=== PATIENT | male | born 1955 | race Caucasian/White ===

== ENCOUNTER → 2017-08-13 08:19 | Outpatient (CLI) | payer MEDICARE, SELFPAY ==
--- NOTE | 2017-08-13 09:00 | AVDS_ITS ---
Reason For Study: Infiltration of LUE fistula LEFT Proximal [place] vessel 182.0 cm/s. Proximal anastomosis 238.0 cm/s. Prox graft 187.0 cm/s Mid graft 181.0 cm/s Dist graft 141.0 cm/s Outflow 138.0 cm/s Volume flow [place] artery 101 cc/min Prox graft 181 cc/min Mid graft 127 cc/min Dist graft 51.9 cc/min Hypoechoic structure noted distal upper arm measuring 4.5 x 1.8 cm. Non-vascular. Interpretation Summary Left upper extremity fistula diameter is normal but volume flow is low throughout. Area of hematoma/infiltration 4.5 x 1.8cm noted in distal upper arm. Ordering Physician: Pavel Nova Referring Physician: Pavel Nova Performed By: Nafisa Wood RVT
== END ==
PROVIDERS: Family Provider Family Medicine; PCP Family Medicine; Visit Provider Surgery
DX: T82.898A Other specified complication of vascular prosthetic devices, implants and grafts, initial encounter (principal)
CPT/HCPCS: 93990

== ENCOUNTER 2017-08-14 10:47 | Emergency (ER) | payer MEDICARE, SELFPAY ==
[2017-08-14 10:48] VITALS: BP 125/86; PULSE 85; RESP 14; TEMP 35.7; O2SAT 99; BMI 32.8
[2017-08-14 10:59] VITALS: BP 176/86; PULSE 74; RESP 19; O2SAT 99
--- NOTE | 2017-08-14 11:11 | EKG12_ITS ---
Test Reason : CP Blood Pressure : / mmHG Vent. Rate : 077 BPM Atrial Rate : 077 BPM P-R Int : 172 ms QRS Dur : 088 ms QT Int : 434 ms P-R-T Axes : 029 038 051 degrees QTc Int : 491 ms Normal sinus rhythm Prolonged QT Abnormal ECG Confirmed by GONZALO CERVANTES, CARA ([id number]), senior technical editor BENTON CONRAD ([id number]) on 08/18/2017 3:13:40 PM Referred By: Pavel Nova Confirmed By:CARA SÁNCHEZ MD
--- NOTE | 2017-08-14 11:11 | RAD_ITS ---
STUDY: X-RAY CHEST REASON FOR EXAM: Male, 61 years old. 5 day history of chest pain. Hypertension. COPD. TECHNIQUE: Single AP portable view of the chest. COMPARISON: Comparison is made with prior study dated May 09, 2017. FINDINGS: EKG electrodes are seen. Stable pleural parenchymal changes at the left lung base. Hyperinflation. Normal size heart. Normal mediastinum and ania. Normal visualized pulmonary arteries. Normal visualized aortic arch and descending thoracic aorta. There are diffuse degenerative changes of the visualized thoracic spine. Normal visualized ribs, clavicles, and shoulders. There is no demonstrated abnormality of the visualized soft tissue structures of the upper abdomen. RAD/Chest 1 View (Portable) IMPRESSION: Stable pleural parenchymal changes at the left lung base. Electronically Signed: Ronald Johnson MD at 11:42 EST Tel [phone], Service support ,
[2017-08-14] MEDS: Aspirin 81 MG TAB.CHEW 324 MG PO (11:27)
[2017-08-14 11:38] LABS: Absolute Lymphocyte Count 1.22 X10^3/ul (0.83-4.51); Basophil# 0.06 X10^3/uL; Basophil% 1.4 % (0-1); Eosinophil# 0.38 X10^3/uL; Eosinophils% 8.9 % (0-5); Hematocrit 32.7 % (40-54); Lymphocyte # 1.22 X10^3/ul (4.0); Lymphocyte % 28.4 % (19-41); Mean Corp Hgb Conc 33.6 g/gl (32-36); Mean Corpuscular Hgb 34.4 pg (27.0-32.0); Mean Corpuscular Volume 102.2 fL (80-94); Mean Platelet Vol. 9.6 fl (6.2-12.0); Monocyte# 0.65 X10^3/uL; Monocyte% 15.2 % (0-10); Neutrophil # 1.97 X10^3/uL (2.7-7.7); Neutrophil % 45.9 % (47-70); Platelet Count 209 K/mm3 (150-450); RBC Distribution Width CV 14.8 % (11.6-14.6); RBC Distribution Width SD 52.2 fl (35.1-43.9); White Blood Count 4.3 K/mm3 (4.4-11.0)
[2017-08-14 11:39] LABS: POSITIVE COUNT NO; POSITIVE DIFFERENTIAL NO; POSITIVE MORPHOLOGY NO
[2017-08-14 11:55] LABS: BUN 9 mg/dL (7-18); Chloride 95 mmol/L (98-107); Creatinine, Serum 2.26 mg/dL (0.70-1.30); EST Glomerular Filtration Rate 32 mL/min (>60); Est Glom Filt Rate - Afr Amer 38 mL/min (>60); Glucose 79 mg/dL (70-110); Potassium 3.5 mmol/L (3.5-5.1); Sodium Level 135 mmol/L (136-145)
[2017-08-14 11:56] LABS: Anion Gap 10 (5-15)
[2017-08-14 12:48] VITALS: BP 196/78; PULSE 72; RESP 16; O2SAT 98
--- NOTE | 2017-08-14 13:01 | ED.VISSUMM ---
- ER Visit Summary Date of Service: 08/14/17 Chief Complaint: Chest pain History of Present Illness: The patient is a [address] Recio and Dr. Perez. He reports he has had intermittent chest pain for the past 5 days. This lasts minutes at a time he describes a throbbing on the left side. He is pain-free currently. It is 5 out of 10 at worst. Is worsened by nothing including exertion periods relieved by nothing. There is no radiation. No associated nausea, vomiting, diaphoresis, or shortness of breath. Physical Examination: Vitals: Stable. Afebrile. General: Well-nourished and well-developed. Head: Normocephalic atraumatic. Neck: Supple, no lymphadenopathy. No JVD. Nontender. Cardiovascular: Regular rate and rhythm. No murmurs. Respiratory: No respiratory distress. Clear to auscultation bilaterally. Abdominal: Soft, nontender, nondistended, normal bowel sounds. No guarding, rebound, or peritoneal signs. Back: Nontender. Extremities: Nontender, no edema. Skin: Normal color, no rash. Neurologic: Alert and oriented ?3. Cranial nerves II through XII are intact. Normal strength and sensation. Psych: Normal affect. Test Results: EKG is sinus at [address] changes. His QTC is 491. This is the only change from April 2017. His QTC was 448 then. Troponin is negative. Chem-7 is more for sodium 135, chloride 95, creatinine 2.26, and calcium 8.0. CBC is marked for white count 4.3 with 46 segmented neutrophils, 15 monocytes, 9 eosinophils. H&H is 11.0 and 32.7. Emergency Department Course and Treatment: Patient is resting comfortably without complaint. He has had not had chest pain while here. Treatment Plan: The patient is refusing to stay in the hospital for further evaluation and treatment. He is capable of making this decision and I had a prolonged discussion with him about the risk of this being cardiac in etiology. Risk of heart attack, heart failure, disability and/or . He is chosen to leave AMA anyways. He is instructed to return to the emergency department for any worsening symptoms or concerns. Follow-up with his primary care physician as soon as possible. Disposition: To home in improved and stable condition. Impression: 1. Chest pain. 2. End-stage renal disease. 3. DEVI score of 1. 4. Left AMA. This note was generated with [employer] dictation software. It may contain incorrect words, spelling, and punctuation that were not noted in review of the chart prior to signing ED Disposition - Plan for ED Patient: Disposition: Home or Assisted Living Chief Complaint: Chest Pain Instructions: ED Chest Pain Atypical Unkn Cause Referrals: Doron Recio MD [Primary Care Provider] - As soon as possible Additional Instructions: Turned to the emergency department at any time for worsening pain, shortness of breath, or any other concerns.
[2017-08-14 13:11] VITALS: BP 204/86; PULSE 69; RESP 20; O2SAT 96
== END 2017-08-14 13:11 | disposition home or self-care (01) ==
LOC: ED 11:55
PROVIDERS: Emergency Provider Emergency Medicine; Family Provider Family Medicine; PCP Family Medicine
DX: R07.9 Chest pain, unspecified (principal); I12.0 Hypertensive chronic kidney disease with stage 5 chronic kidney disease or end stage renal disease; N18.6 End stage renal disease; E78.00 Pure hypercholesterolemia, unspecified; Z99.2 Dependence on renal dialysis; Z72.0 Tobacco use; Z79.899 Other long term (current) drug therapy
CPT/HCPCS: 71045; 80048; 84484; 85025; 93005; 99284; A4216

== ENCOUNTER 2017-08-15 18:04 | Observation (INO) | payer MEDICARE, SELFPAY ==
[2017-08-14 10:48] VITALS: BMI 32.8
[2017-08-14 13:11] VITALS: BP 204/86
[2017-08-15] VITALS (7 sets, daily range): BP systolic 123–152; BP diastolic 66–88; PULSE 76–86; RESP 16–22; TEMP 36.4–36.7; O2SAT 95–99; BMI 34.2; BMI 33.5
--- NOTE | 2017-08-15 18:49 | EKG12_ITS ---
Test Reason : Blood Pressure : / mmHG Vent. Rate : 084 BPM Atrial Rate : 084 BPM P-R Int : 174 ms QRS Dur : 090 ms QT Int : 418 ms P-R-T Axes : 049 024 033 degrees QTc Int : 493 ms Sinus rhythm with frequent Premature ventricular complexes Nonspecific ST abnormality Prolonged QT Abnormal ECG Confirmed by GONZALO CERVANTES, CARA ([id number]), editor department BENTON CONRAD ([id number]) on 08/18/2017 3:33:48 PM Referred By: Pavel Nova Confirmed By:CARA SÁNCHEZ MD
[2017-08-15 19:06] LABS: Absolute Lymphocyte Count 1.99 X10^3/ul (0.83-4.51); Absolute Neutrophil Count 3.3 X10^3/uL (2.0-7.7); Basophil# 0.05 X10^3/uL; Basophil% 0.8 % (0-1); Eosinophil# 0.58 X10^3/uL; Eosinophils% 8.8 % (0-5); Hematocrit 33.8 % (40-54); Hemoglobin 11.3 g/dl (13.0-16.5); Lymphocyte # 1.99 X10^3/ul (4.0); Lymphocyte % 30.3 % (19-41); Mean Corp Hgb Conc 33.4 g/gl (32-36); Mean Corpuscular Hgb 34.2 pg (27.0-32.0); Mean Corpuscular Volume 102.4 fL (80-94); Monocyte# 0.62 X10^3/uL; Monocyte% 9.5 % (0-10); Neutrophil # 3.32 X10^3/uL (2.7-7.7); Neutrophil % 50.6 % (47-70); Platelet Count 223 K/mm3 (150-450); RBC Distribution Width CV 15.4 % (11.6-14.6); RBC Distribution Width SD 56.8 fl (35.1-43.9); White Blood Count 6.6 K/mm3 (4.4-11.0)
[2017-08-15 19:07] LABS: POSITIVE COUNT NO; POSITIVE DIFFERENTIAL NO; POSITIVE MORPHOLOGY NO
[2017-08-15 19:29] LABS: Anion Gap 12 (5-15); BUN 27 mg/dL (7-18); BUN/Creat Ratio 5.2 RATIO (10-20); Calcium,Total 8.6 mg/dL (8.5-10.1); Chloride 92 mmol/L (98-107); Creatinine, Serum 5.16 mg/dL (0.70-1.30); EST Glomerular Filtration Rate 12 mL/min (>60); Est Glom Filt Rate - Afr Amer 15 mL/min (>60); Estimated Creatinine Clearance 14.41 ml/min; Glucose 104 mg/dL (74-106); Sodium Level 129 mmol/L (136-145)
--- NOTE | 2017-08-15 21:28 | ED.VISSUMM ---
- ER Visit Summary Date of Service: 08/15/17 Chief Complaint: Chest pain History of Present Illness: The patient is a 61 M who signed out AMA from the emergency department yesterday after evaluation for chest pain. He states because he was here for 3 hours he felt he did not need to wait any longer and left. He went saw his doctor today who advised him he needed to come to the hospital. So he saw his doctor this morning but comes to the emergency department this evening. He states that he gets dialysis. Yesterday when he went to dialysis he mentioned his pain they spoke with his filer helper performed dialysis and sent to the ER. He states after taking aspirin his pain resolved. He was doing well and today he took some aspirin at lunchtime. He did not have any pain until this evening when the pain returned. He describes the left-sided around his breast. There is a throbbing sensation. He denies shortness of breath nausea or diaphoresis. He is a 2 pack a day smoker. Physical Examination: Afebrile vital signs are stable Gen: Well-nourished well-developed disheveled smelling heavily of cigarettes Head: Normocephalic atraumatic Eyes: Perrl EOMI ENT: TMs clear no rhinorrhea moist mucous membranes Neck: Supple no lymphadenopathy no JVD nontender CVS: Regular rate rhythm no murmurs normal S1-S2 Respiratory: No distress clear to auscultation bilaterally chest nontender Abdomen: Soft nontender nondistended normal bowel sounds no masses Back: Nontender Extremity: Nontender no edema Skin: Normal color no rash Neuro: alert orientated ?3 CN II-XII intact normal strength sensation reflexes gait cerebellar Psych: Patient has a rather angry disposition Test Results: CBC chemistries showed chronic findings associated with end-stage renal disease. Troponin negative. EKG sinus at a rate of 84 with a PVC. Chest x-ray was not repeated but reviewed from yesterday. Emergency Department Course and Treatment: Patient will be admitted into the hospital for further evaluation of chest pain. His DEVI score is 3 Impression: 1. Chest pain This note was generated with [employer] dictation software. It may contain incorrect words, spelling, and punctuation that were not noted in review of the chart prior to signing ED Disposition - Plan for ED Patient: Chief Complaint: Chest Pain Referrals: Doron Recio MD [Primary Care Provider] -
--- NOTE | 2017-08-15 21:31 | ED.DCSUM_ITS ---
- ER Visit Summary Date of Service: 08/15/17 Chief Complaint: Chest pain History of Present Illness: The patient is a 61 M who signed out AMA from the emergency department yesterday after evaluation for chest pain. He states because he was here for 3 hours he felt he did not need to wait any longer and left. He went saw his doctor today who advised him he needed to come to the hospital. So he saw his doctor this morning but comes to the emergency department this evening. He states that he gets dialysis. Yesterday when he went to dialysis he mentioned his pain they spoke with his edi manager performed dialysis and sent to the ER. He states after taking aspirin his pain resolved. He was doing well and today he took some aspirin at lunchtime. He did not have any pain until this evening when the pain returned. He describes the left-sided around his breast. There is a throbbing sensation. He denies shortness of breath nausea or diaphoresis. He is a 2 pack a day smoker. Physical Examination: Afebrile vital signs are stable Gen: Well-nourished well-developed disheveled smelling heavily of cigarettes Head: Normocephalic atraumatic Eyes: Perrl EOMI ENT: TMs clear no rhinorrhea moist mucous membranes Neck: Supple no lymphadenopathy no JVD nontender CVS: Regular rate rhythm no murmurs normal S1-S2 Respiratory: No distress clear to auscultation bilaterally chest nontender Abdomen: Soft nontender nondistended normal bowel sounds no masses Back: Nontender Extremity: Nontender no edema Skin: Normal color no rash Neuro: alert orientated ?3 CN II-XII intact normal strength sensation reflexes gait cerebellar Psych: Patient has a rather angry disposition Test Results: CBC chemistries showed chronic findings associated with end-stage renal disease. Troponin negative. EKG sinus at a rate of 84 with a PVC. Chest x-ray was not repeated but reviewed from yesterday. Emergency Department Course and Treatment: Patient will be admitted into the hospital for further evaluation of chest pain. His DEVI score is 3 Impression: 1. Chest pain This note was generated with [employer] dictation software. It may contain incorrect words, spelling, and punctuation that were not noted in review of the chart prior to signing ED Disposition - Plan for ED Patient: Chief Complaint: Chest Pain Referrals: Doron Recio MD [Primary Care Provider] -
--- NOTE | 2017-08-15 21:53 | PCM.HP.STD ---
Problem List (1) ESRD (end stage renal disease) Status: Acute (2) Metabolic acidosis Status: Acute (3) Surgically constructed arteriovenous fistula Status: Acute (4) COPD (chronic obstructive pulmonary disease) Status: Chronic (5) Current drinker of alcohol Status: Chronic (6) Tobacco user Status: Chronic History of Present Illness Date of Admission: 08/15/17 Chief Complaint: Chest pain The patient is a 61 year old male w/ h/o EtOH abuse, tobacco abuse, COPD, CAD, and HTN admitted for chest pain. Pt had chest pain prior to dialysis yesterday. His chinese language professor dialyzed him and told him to go to the ED afterward. He went to the ED and signed himself out AMA. He did not want to wait in the ED. The next day, he went to his PCP who told him to go back to the ED. He had chest pain this evening again. Chest pain was tightness on his left chest. Nothing appeared to make it better or worse. It lasted for hours. Pain was moderate to severe. Pt became concern and went back to the ED. Past Medical History Past Medical History (Chronic Problems): Chronic Problems (Last Updated 08/14/17 @ 14:15 by Selin Rubio) Benign hypertension (Chronic) Current drinker of alcohol (Chronic) Dyslipidemia (Chronic) Tobacco user (Chronic) PKD (polycystic kidney disease) (Chronic) CKD (chronic kidney disease), stage III (Chronic) COPD (chronic obstructive pulmonary disease) (Chronic) CKD (chronic kidney disease) (Chronic) Allergies Penicillins Allergy (Verified 08/15/17 18:08) Unknown Home Medications: Ambulatory Orders Medication Instructions Recorded Atenolol [Tenormin] 25 mg PO DAILY 05/09/17 Cholecalciferol (Vitamin D3) 2,000 unit PO DAILY 05/09/17 [Vitamin D3] Citalopram [Celexa] 20 mg PO QHS 05/09/17 Furosemide [Lasix] 20 mg PO DAILY 05/09/17 Loratadine 10 mg PO DAILY 05/09/17 Lovastatin [Mevacor] 40 mg PO DAILY 05/09/17 Sevelamer Carbonate [Renvela] 800 mg PO TID 05/09/17 Tamsulosin HCl [Flomax] 0.4 mg PO DAILY 05/09/17 B Complex W-C No.20/Folic Acid 1 mg PO DAILY 08/14/17 [Nephrocaps Softgel] Surgical History: - - AVF left upper arm Smoking Status: Current every day smoker - *Family History Paternal History Items: No pertinent history Sibling History Items: Renal Disease - PCKD Review of Systems Constitutional: Denies: Chills, Fever, Weight Change HEENT: Denies: Head Aches, Sinus Congestion, Sinus Drainage Cardiovascular: Reports: Chest Pain, Chest Tightness. Denies: Palpitations Respiratory: Denies: Cough, Shortness of breath at rest, Sputum production Gastrointestinal: Denies: Abdominal Pain, Nausea, Vomiting Genitourinary: Denies: Dysuria Musculoskeletal: Denies: Joint Pain, Joint Tenderness Skin: Denies: Rash, Wounds Neurological: Denies: Numbness, Tingling, Focal weakness Psychiatric: Denies: Anxiety, Depression, Homicidal Ideations, Suicidal Ideations Hematologic/ Lymphatic: Denies: Easy Bruising, Easy Bleeding VTE Information - Inpt Only VTE Present on Admission: No VTE Mechan Device Prophylaxis: SCD's VTE Pharm Prophylaxis ordered?: Yes - Physical Exam General: Alert, Oriented x3, Cooperative HEENT: Atraumatic, PERRLA, EOMI, Normocephalic Neck: Supple, No JVD, Negative Carotid Bruits Lungs: Clear to auscultation, Normal air movement Cardiovascular: Regular rate, Murmur - II/ systolic murmur Abdomen: Bowel Sounds Present, Soft, Non Tender Extremities: No edema, Capillary Refill Less than 3 Seconds Skin: No rashes, No breakdown Musculoskeletal: No Tenderness to Palpation of Joints or Extremities Neurological: Cranial nerves II-XII grossly intact Psych/Mental Status: Normal Affect, Appropriate Vital Signs Temp Pulse Resp BP Pulse Ox 97.6 F L 80 21 H 130/73 H 95 08/15/17 18:05 08/15/17 21:28 08/15/17 21:28 08/15/17 21:28 08/15/17 21:28 Oxygen Delivery Method Room Air Weight: 99.2 kg Body Mass Index (BMI) 34.2 Laboratory Tests Past 24 Hrs 08/15/17 08/15/17 18:20 18:20 WBC 6.6 RBC 3.30 L Hgb 11.3 L Hct 33.8 L MCV 102.4 H MCH 34.2 H MCHC 33.4 RDW 15.4 H RDW Differential 56.8 H Plt Count 223 MPV 10.0 Immature Gran % (Auto) 0.000 Neut % (Auto) 50.6 Lymph % (Auto) 30.3 [place] % (Auto) 9.5 Eos % (Auto) 8.8 H Baso % (Auto) 0.8 Absolute Neuts (auto) 3.3 Absolute Lymphs (auto) 1.99 Total Counted Not Reportable Sodium 129 L Potassium 4.0 Chloride 92 L Carbon Dioxide 25.0 Anion Gap 12 BUN 27 H Creatinine 5.16 H Estim Creat Clear Calc 14.41 Est GFR (MDRD) Af Amer 15 L Est GFR (MDRD) Non-Af 12 L BUN/Creatinine Ratio 5.2 L Glucose 104 Calcium 8.6 Troponin I < 0.02 Assessment/Plan 61 year old male w/ h/o EtOH abuse, tobacco abuse, COPD, CAD, and HTN admitted for chest pain. 1) Chest pain: Heart score 5 Trop and EKG unremarkable. Chest xray from yesterday unremarkable. FLP pending. Will get serial trops. ECHO and stress test in AM. C/w conservative medical management. 2) ESRD: TTS. Will consult nephrology for HD tomorrow. Monitor. 3) EtOH abuse: Will monitor for withdrawal. Monitor. 4) Chronic issues: COPD, tobacco abuse, CAD: Resume home meds. 5) Prophylaxis: Heparin.
[2017-08-15] MEDS: Aspirin 81 MG TAB.CHEW 324 MG PO (23:00)
[2017-08-16] VITALS (7 sets, daily range): BP systolic 164–173; BP diastolic 66–84; PULSE 68–75; RESP 18; TEMP 36.3–36.8; O2SAT 96–100
--- NOTE | 2017-08-16 05:55 | EKG12_ITS ---
Test Reason : AM EKG Blood Pressure : / mmHG Vent. Rate : 068 BPM Atrial Rate : 068 BPM P-R Int : 182 ms QRS Dur : 090 ms QT Int : 428 ms P-R-T Axes : 047 036 046 degrees QTc Int : 455 ms Normal sinus rhythm Normal ECG Confirmed by MARIA DOLORES CERVANTES, ALEJA ([id number]), publishing editor BETNON CONRAD ([id number]) on 08/20/2017 3:04:04 PM Referred By: Pavel Nova Confirmed By:ALEJA WHITTEN MD
[2017-08-16 06:37] LABS: Absolute Lymphocyte Count 1.17 X10^3/ul (0.83-4.51); Absolute Neutrophil Count 3.3 X10^3/uL (2.0-7.7); Basophil# 0.05 X10^3/uL; Basophil% 0.9 % (0-1); Eosinophil# 0.52 X10^3/uL; Eosinophils% 9.2 % (0-5); Hematocrit 30.8 % (40-54); Hemoglobin 10.3 g/dl (13.0-16.5); Lymphocyte # 1.17 X10^3/ul (4.0); Lymphocyte % 20.7 % (19-41); Mean Corp Hgb Conc 33.4 g/gl (32-36); Mean Corpuscular Hgb 34.8 pg (27.0-32.0); Mean Corpuscular Volume 104.1 fL (80-94); Mean Platelet Vol. 9.5 fl (6.2-12.0); Monocyte# 0.57 X10^3/uL; Monocyte% 10.1 % (0-10); Neutrophil # 3.33 X10^3/uL (2.7-7.7); Neutrophil % 58.9 % (47-70); Platelet Count 209 K/mm3 (150-450); RBC Distribution Width CV 15.2 % (11.6-14.6); RBC Distribution Width SD 55.6 fl (35.1-43.9); Red Blood Count 2.96 M/mm3 (4.6-6.2); White Blood Count 5.7 K/mm3 (4.4-11.0)
[2017-08-16 06:39] LABS: Partial Thromboplast Time 27.5 Seconds (24.1-36.2); Prothrombin Time (Protime)PT. 12.6 SECONDS (11.7-14.9)
[2017-08-16 06:49] LABS: POSITIVE COUNT NO; POSITIVE DIFFERENTIAL NO; POSITIVE MORPHOLOGY NO
[2017-08-16 07:06] LABS: ALB/GLOB Ratio 0.9 RATIO (0.9-2.4); AST(SGOT) 16 U/L (15-37); Alanine Aminotransfer ALT/SGPT 25 U/L (16-61); Albumin, Serum 3.1 g/dL (3.2-5.0); Alkaline Phosphatase 76 U/L (45-117); Anion Gap 12 (5-15); BUN 35 mg/dL (7-18); BUN/Creat Ratio 6.5 RATIO (10-20); Calcium,Total 8.4 mg/dL (8.5-10.1); Chloride 94 mmol/L (98-107); Cholesterol 158 mg/dL (200); Creatinine, Serum 5.39 mg/dL (0.70-1.30); EST Glomerular Filtration Rate 12 mL/min (>60); Est Glom Filt Rate - Afr Amer 14 mL/min (>60); Globulin 3.3 g/dL (2.2-4.2); Glucose 107 mg/dL (74-106); High Density Lipoprotein 52 mg/dL; Magnesium 2.4 mg/dL (1.6-2.6); Potassium 4.5 mmol/L (3.5-5.1); Protein, Total 6.4 g/dL (6.4-8.2); Sodium Level 131 mmol/L (136-145); Triglycerides 76 mg/dL; Very Low Density Lipoprotein 15 mg/dL (5-40)
[2017-08-16] MEDS: Tamsulosin HCl 0.4 MG Capsule PO (10:05)
[2017-08-16] MEDS: Furosemide 20 MG Tablet PO (10:05)
[2017-08-16] MEDS: Folic Acid/Vitamin B Comp W-C 1 Capsule 1 CAP PO (10:05)
[2017-08-16] MEDS: Loratadine 10 MG Tablet PO (10:06)
[2017-08-16] MEDS: Atenolol 25 MG Tablet PO (10:07)
--- NOTE | 2017-08-16 10:33 | PCM.CONS.R ---
Consultation - Renal 08/16/17 PCP/ Referring MD: Requesting physician: [] Primary care physician: Doron Recio Reason for Consultation:: ESRD HD TTS - History of Present Illness History of Present Illness: he patient is a 61 year old male with ESRD due to polycystic kidney disease presents to ED after dialysis for chest pain. He was advised to be admitted for stress test but signed out AMA. He had chest pain for the past 4 days left sternal dull ache without shortness of breath, nausea. His primary care doctor has been aware of his chest pain and was instructed to go to the emergency room but refused. Past medical history is significant for EtOH abuse, tobacco abuse, COPD, CAD, and HTN. He returned back to the emergency room last night with complaints of recurrent chest pain. He underwent stress test today with report pending. Troponin level negative ?3. - Allergies Allergies: Allergies Penicillins Allergy (Verified 08/15/17 18:08) Unknown - Current Medications Current Medications: Current Medications Albuterol Sulfate (Ventolin Aerosols) 2.5 mg INHALATION Q2H PRN PRN PRN Reason: dyspnea, wheezing Albuterol/Ipratropium (Duoneb) 3 ml INHALATION Q4HWA.RT [facility] Aspirin (Ecotrin) 81 mg PO DAILY@0800 [facility] Last Admin: 08/16/17 05:10 Dose: Not Given Atenolol (Tenormin (Beta Sb)) 25 mg PO DAILY [facility] Last Admin: 08/16/17 10:07 Dose: 25 mg Atorvastatin Calcium (Lipitor) 10 mg PO QHS [facility] Cholecalciferol (Vitamin D) 2,000 unit PO DAILY [facility] Last Admin: 08/16/17 10:06 Dose: 2,000 unit Citalopram Hydrobromide (Celexa) 20 mg PO QHS [facility] Last Admin: 08/15/17 23:50 Dose: Not Given Furosemide (Lasix) 20 mg PO DAILY [facility] Last Admin: 08/16/17 10:05 Dose: 20 mg Heparin Sodium (Porcine) (Heparin Na) 5,000 unit SC Q8 [facility] Last Admin: 08/16/17 01:26 Dose: Not Given Hydralazine HCl (Apresoline) 10 mg IV Q6H PRN PRN PRN Reason: BLOOD PRESSURE ELEVATION Last Admin: 08/16/17 06:09 Dose: 10 mg Loratadine (Claritin) 10 mg PO DAILY [facility] Last Admin: 08/16/17 10:06 Dose: 10 mg Multivit/Ca Carb/B Cmplx/FA/Prenat (Nephrocaps, Renaphro) 1 capsule PO DAILY [facility] Last Admin: 08/16/17 10:05 Dose: 1 capsule Nitroglycerin (Nitrostat) 0.4 mg SUBLINGUAL Q5M PRN PRN Reason: CHEST PAIN Sevelamer Carbonate (Renvela) 800 mg PO TID [facility] Last Admin: 08/16/17 05:10 Dose: Not Given Sodium Chloride () 5 - 30 ml IV UD PRN PRN Reason: SALINE FLUSH Tamsulosin HCl (Flomax) 0.4 mg PO DAILY [facility] Last Admin: 08/16/17 10:05 Dose: 0.4 mg - Past Medical History Past Medical History (Chronic Problems): Chronic Problems (Last Updated 08/14/17 @ 14:15 by Selin Rubio) Benign hypertension (Chronic) Current drinker of alcohol (Chronic) Dyslipidemia (Chronic) Tobacco user (Chronic) PKD (polycystic kidney disease) (Chronic) CKD (chronic kidney disease), stage III (Chronic) COPD (chronic obstructive pulmonary disease) (Chronic) CKD (chronic kidney disease) (Chronic) - Past Surgical History Surgical History: - - AVF left upper arm - Social History Smoking Status: Current every day smoker - Family History Paternal Family History: Family History (Last Updated 08/04/17 @ 08:51 by Selin Rubio) Mother Cancer Father Cancer History Items: No pertinent history Sibling Family History: Family History (Last Updated 08/04/17 @ 08:51 by Selin Rubio) Mother Cancer Father Cancer History Items: Renal Disease - PCKD Review of Systems Constitutional: Denies: Anorexia, Chills, Fever, Weakness, Fatigue HEENT: Denies: Head Aches Cardiovascular: Reports: Chest Pain - At rest and with exertion. Denies: Edema, Syncope Respiratory: Denies: Cough, Shortness of Breath Gastrointestinal: Denies: Abdominal Pain, Constipation, Diarrhea, Nausea, Vomiting Musculoskeletal: Denies: Arm Pain Neurological: Denies: Balance problems Psychiatric: Denies: Anxiety, Depression Hematologic/ Lymphatic: Reports: Anemia - Physical Exam General: Alert, Oriented x3, Cooperative, No apparent distress HEENT: PERRLA, EOMI Oral: Moist Mucosa Neck: Supple Lungs: Clear to auscultation Cardiovascular: Regular rate Abdomen: Bowel Sounds Present, Soft, Non Tender, Non-Distended, Obese Extremities: No edema, - - Left upper arm AV fistula with good thrill and bruit Skin: No rashes Musculoskeletal: No Muscle Wasting Psych/Mental Status: Normal Affect, Alert and oriented to time, place, person, mood and affect Vital Signs Temp Pulse Resp BP Pulse Ox 98.2 F 68 18 164/76 H 100 08/16/17 10:03 08/16/17 10:03 08/16/17 10:03 08/16/17 10:03 08/16/17 10:03 Oxygen Delivery Method Room Air Weight: 97 kg Body Mass Index (BMI) 33.5 Intake and Output for Last 24 Hours 08/14/17 08/15/17 08/16/17 23:59 23:59 23:59 Intake Total 120 / 120 Balance 120 / 120 Laboratory Tests Past 24 Hrs 08/15/17 08/16/17 08/16/17 22:59 02:48 06:00 WBC 5.7 RBC 2.96 L Hgb 10.3 L Hct 30.8 L MCV 104.1 H MCH 34.8 H MCHC 33.4 RDW 15.2 H RDW Differential 55.6 H Plt Count 209 MPV 9.5 Immature Gran % (Auto) 0.200 Neut % (Auto) 58.9 Lymph % (Auto) 20.7 [place] % (Auto) 10.1 H Eos % (Auto) 9.2 H Baso % (Auto) 0.9 Absolute Neuts (auto) 3.3 Absolute Lymphs (auto) 1.17 Total Counted Not Reportable PT INR APTT Sodium Potassium Chloride Carbon Dioxide Anion Gap BUN Creatinine Estim Creat Clear Calc Est GFR (MDRD) Af Amer Est GFR (MDRD) Non-Af BUN/Creatinine Ratio Glucose Calcium Magnesium Total Bilirubin AST ALT Alkaline Phosphatase Troponin I < 0.02 < 0.02 Total Protein Albumin Globulin Albumin/Globulin Ratio Triglycerides Cholesterol LDL Cholesterol VLDL Cholesterol HDL Cholesterol TSH 08/16/17 08/16/17 06:00 06:00 WBC RBC Hgb Hct MCV MCH MCHC RDW RDW Differential Plt Count MPV Immature Gran % (Auto) Neut % (Auto) Lymph % (Auto) [place] % (Auto) Eos % (Auto) Baso % (Auto) Absolute Neuts (auto) Absolute Lymphs (auto) Total Counted PT 12.6 INR 1.0 APTT 27.5 Sodium 131 L Potassium 4.5 Chloride 94 L Carbon Dioxide 25.0 Anion Gap 12 BUN 35 H Creatinine 5.39 H Estim Creat Clear Calc 13.80 Est GFR (MDRD) Af Amer 14 L Est GFR (MDRD) Non-Af 12 L BUN/Creatinine Ratio 6.5 L Glucose 107 H Calcium 8.4 L Magnesium 2.4 Total Bilirubin 0.30 AST 16 ALT 25 Alkaline Phosphatase 76 Troponin I Total Protein 6.4 Albumin 3.1 L Globulin 3.3 Albumin/Globulin Ratio 0.9 Triglycerides 76 Cholesterol 158 LDL Cholesterol 91 VLDL Cholesterol 15 HDL Cholesterol 52 TSH 1.90 Assessment/Plan 1. ESRD due to polycystic kidney disease. Dialysis today either as inpatient or outpatient depending on results of stress test. 2. Chest pain status post stress test 3. Hypertension resume home blood pressure medications 4. COPD with history of tobacco use. Advised to stop smoking on multiple occasions including today 5. Anemia hemoglobin stable 6. Hyponatremia correct with dialysis.
--- NOTE | 2017-08-16 10:51 | PCM.DC ---
- Discharge Diagnoses Current Active Problems: Chest pain CAD Chronic COPD, untreated Tobacco use HTN HLD ESRD on HD secondary to HTN, PCKD EtOH Abuse You will use the following diet at home:: Cardiac, Renal (restricted protein/sodium) Your food should be the consistency of: Regular Your liquids should be the consistency of: Regular/Thin Discharge Activity: Return to Normal Activity May resume sexual activity in: No Restrictions Weight Bearing Status: Weight bearing as tolerated Call your doctor if you observe: Fever of 101 or Higher, Inability to have a bowel movement, Shortness of breath, Dizziness, Fainting spells, Chest pain, Uncontrolled pain Instructions: ED Chest Pain NonCardiac, ED Chest Pain Atypical Unkn Cause, Why Do You Smoke?, Planning to Quit Smoking, Getting Support for Quitting Smoking, Coping with Smoking Withdrawal, What is COPD?, Using an Inhaler with a Spacer, Using an Inhaler Without a Spacer, Caring for Your Inhaler Additional Instructions: You have been given rx electronically to your pharmacy listed for albuterol and advair for suspected chronic COPD. Please continue these regimens and follow-up with pulmonary to have pulmonary function testing and assessment. Additionally, please continue OTC daily baby aspirin therapy. Allergies/Adverse Reactions: Allergies Penicillins Allergy (Verified 08/15/17 18:08) Unknown Medications to take at Discharge Atenolol [Tenormin] 25 mg PO DAILY 05/09/17 Cholecalciferol (Vitamin D3) [Vitamin D3] 2,000 unit PO DAILY 05/09/17 Citalopram [Celexa] 20 mg PO QHS 05/09/17 Furosemide [Lasix] 20 mg PO DAILY 05/09/17 Loratadine 10 mg PO DAILY 05/09/17 Lovastatin [Mevacor] 40 mg PO DAILY 05/09/17 Sevelamer Carbonate [Renvela] 800 mg PO TID 05/09/17 Tamsulosin HCl [Flomax] 0.4 mg PO DAILY 05/09/17 B Complex W-C No.20/Folic Acid [Nephrocaps Softgel] 1 mg PO DAILY 08/14/17 Albuterol IH (ProAir) [Proair Hfa] 1 - 2 puff INHALATION Q4H PRN PRN #1 inhaler 08/16/17 Aspirin E.C. [Ecotrin] 81 mg PO DAILY@0800 tablet 08/16/17 Fluticasone/Salmeterol [Advair 250-50 Diskus] 1 ea IH BID #1 blst.w.dev 08/16/17 The following prescriptions were given: Albuterol IH (ProAir) [Proair Hfa] 1 - 2 puff INHALATION Q4H PRN PRN #1 inhaler PRN Reason: dyspnea, wheezing Fluticasone/Salmeterol [Advair 250-50 Diskus] 1 ea IH BID #1 blst.w.dev Primary Care Physician: Doron Recio MD [Primary Care Provider] - Please follow up with your Primary Care Physician in: Follow-up within 3-5 days to review admission. Please Follow Up With: Francis Glass, DO When: Recommend follow-up evaluation per Pulmonary for COPD assessment/treatment. Proposed Discharge Date: 08/16/17
--- NOTE | 2017-08-16 10:56 | DCINST_ITS ---
- Discharge Diagnoses Current Active Problems: Chest pain CAD Chronic COPD, untreated Tobacco use HTN HLD ESRD on HD secondary to HTN, PCKD EtOH Abuse You will use the following diet at home:: Cardiac, Renal (restricted protein/ sodium) Your food should be the consistency of: Regular Your liquids should be the consistency of: Regular/Thin Discharge Activity: Return to Normal Activity May resume sexual activity in: No Restrictions Weight Bearing Status: Weight bearing as tolerated Call your doctor if you observe: Fever of 101 or Higher, Inability to have a bowel movement, Shortness of breath, Dizziness, Fainting spells, Chest pain, Uncontrolled pain Instructions: ED Chest Pain NonCardiac, ED Chest Pain Atypical Unkn Cause, Why Do You Smoke?, Planning to Quit Smoking, Getting Support for Quitting Smoking, Coping with Smoking Withdrawal, What is COPD?, Using an Inhaler with a Spacer, Using an Inhaler Without a Spacer, Caring for Your Inhaler Additional Instructions: You have been given rx electronically to your pharmacy listed for albuterol and advair for suspected chronic COPD. Please continue these regimens and follow-up with pulmonary to have pulmonary function testing and assessment. Additionally, please continue OTC daily baby aspirin therapy. Allergies/Adverse Reactions: Allergies Penicillins Allergy (Verified 08/15/17 18:08) Unknown Medications to take at Discharge Atenolol [Tenormin] 25 mg PO DAILY 05/09/17 Cholecalciferol (Vitamin D3) [Vitamin D3] 2,000 unit PO DAILY 05/09/17 Citalopram [Celexa] 20 mg PO QHS 05/09/17 Furosemide [Lasix] 20 mg PO DAILY 05/09/17 Loratadine 10 mg PO DAILY 05/09/17 Lovastatin [Mevacor] 40 mg PO DAILY 05/09/17 Sevelamer Carbonate [Renvela] 800 mg PO TID 05/09/17 Tamsulosin HCl [Flomax] 0.4 mg PO DAILY 05/09/17 B Complex W-C No.20/Folic Acid [Nephrocaps Softgel] 1 mg PO DAILY 08/14/17 Albuterol IH (ProAir) [Proair Hfa] 1 - 2 puff INHALATION Q4H PRN PRN #1 inhaler 08/16/17 Aspirin E.C. [Ecotrin] 81 mg PO DAILY@0800 tablet 08/16/17 Fluticasone/Salmeterol [Advair 250-50 Diskus] 1 ea IH BID #1 blst.w.dev The following prescriptions were given: Albuterol IH (ProAir) [Proair Hfa] 1 - 2 puff INHALATION Q4H PRN PRN #1 inhaler PRN Reason: dyspnea, wheezing Fluticasone/Salmeterol [Advair 250-50 Diskus] 1 ea IH BID #1 blst.w.dev Primary Care Physician: Doron Recio MD [Primary Care Provider] - Please follow up with your Primary Care Physician in: Follow-up within 3-5 days to review admission. Please Follow Up With: Francis Glass, DO When: Recommend follow-up evaluation per Pulmonary for COPD assessment/ treatment. Proposed Discharge Date: 08/16/17
--- NOTE | 2017-08-16 11:18 | STRESSREP_ITS ---
Stress Test Report Pharmacologic myocardial perfusion stress test 61-year-old man with a history of chest pain. Stress protocol: Resting EKG demonstrates normal sinus rhythm with a rate of 69 bpm normal intervals noted. Resting blood pressure is 164/70 mmHg. 0.4 mg of regadenoson was infused per usual protocol followed by rapid intravenous saline flush injection. Continuous EKG monitoring was performed. At rest there were no ST or T-wave changes noted to suggest abnormal flow reserve. At peak infusion no ST or T-wave changes were noted suggest abnormal flow reserve. No clinical angina was noted. Blood pressure was 164/70 with a final blood pressure of 180/ 80 mmHg. Myocardial perfusion protocol: 12.0 mCi of technetium 99m sestamibi was injected at rest. 0.4 mg regadenoson was infused per usual protocol. At peak infusion 36.0 mCi of technetium 99m sestamibi was injected. Stress images were obtained. Stress and rest images were reconstructed and compared in the short axis vertical long and horizontal long axis. Gated images were also obtained. Perfusion SPECT analysis: Review of the stress images demonstrate normal uptake of tracer noted in all areas of the myocardium. There is mildly reduced perfusion on the inferior wall on the stress images however the resting images demonstrate a similar patent no obvious ischemia is noted. No previous infarct is present. Gated SPECT analysis: The gated ejection fraction is noted to be approximately 43%. Global hypokinesis is present. Conclusion: Normal pharmacologic myocardial perfusion stress test. Mild cardiomyopathy.
--- NOTE | 2017-08-16 12:18 | PCM.DC.SUM ---
Discharge Date and Diagnosis Date of Admission: 08/15/17 Date of Discharge: 08/16/17 - Primary Discharge Diagnosis Chest pain, Non-cardiac, Unspecific etiology, possibly secondary to musculoskeletal strain with coughing with COPD, untreated CAD Chronic COPD, untreated Tobacco use HTN HLD ESRD on HD secondary to HTN, PCKD EtOH Abuse - Secondary Discharge Diagnosis Chronic Problems (Last Updated 08/14/17 @ 14:15 by Selin Rubio) Benign hypertension (Chronic) Current drinker of alcohol (Chronic) Dyslipidemia (Chronic) Tobacco user (Chronic) PKD (polycystic kidney disease) (Chronic) CKD (chronic kidney disease), stage III (Chronic) COPD (chronic obstructive pulmonary disease) (Chronic) CKD (chronic kidney disease) (Chronic) Hospital Course and Treatment Imaging Results: 08/16/17 05:55 Nuclear Stress Test - Chemical [NM] AM (NON MEDS) Dr. Perez Warehouse Director Operations: None Procedures: EKG, Stress test Summary of Care Provided: The patient is a 61 y/o M w/ PMHx: CAD, Chronic COPD Untreated, Continued Tobacco Use, HTN, HLD, ESRD on HD secondary to HTN disease as well as PCKD, EtOH Abuse who presented to the [facility] ED on 08/15/17 with history of onset chest pain, left sided without radiation or associated nausea, emesis, diaphoresis or dyspnea, sharp in nature, prior to dialysis the day prior with evaluation following dialysis with recommendation to present to the emergency room however patient signed himself out AMA from the emergency room secondary to not wanting to wait with recurrent discomfort the day following with again primary care physician encouragement for evaluation. In the ED work-up included EKG sinus rhythm without evidence of acute ischemia, CXR without acute process aside chronic COPD changes, CBC w/ stable AOCD and chemistry w/ stable changes secondary to renal disease w/ ESRD, cardiac enzyme set x 1 normal. The patient was admitted to PCU, maintained on cardiac telemetry, serial cardiac enzymes were obtained as well as serial EKGs which remained unremarable. Patient underwent AM nuclear stress testing which was noted to be negative for inducible ischemia. FLP was obtained during admission. Patient was discharged to home in stable condition with recommendation for follow-up with primary care physician within 3-5 days as well as planned HD following discharge, arranged per Dr. Perez, counter sales person who was consulted during admission secondary to ESRD on HD status. Upon discharge encouraged daily baby ASA as well as albuterol PRN and duoneb with consideration follow-up with Pulmonary for pulmonary function testing and evaluation/treatment of COPD. Encouraged tobacco cessation also. DAY OF DISCHARGE PROGRESS NOTE: Subjective: Patient without acute event overnight per self and nursing report. Patient denies fever, chills, nausea, emesis, abdominal pain, recurrent or worsened chest pain or dyspnea. Patient agreeable to discharge to home with planned HD outpatient in the afternoon, arranged per Dr. Perez given unremarkable stress testing. Patient will be discharged with follow-up with primary care physician within 3-5 days in addition to Dr. Perez as previously arranged and recommended pulmonary assessment for COPD evaluation/treatment. Objective: T 98.2, heart rate 68, BP 164/76, respiratory rate 18, 100% room air. Physical Examination: General: awake, alert, oriented x 3 and cooperative, seated upright in the bed, NAD. Skin: normal color, turgor, no icterus, cyanosis septal occasional extremity ecchymoses. HEENT: AT/NC, EOMI, PERRLA, MMM. Lungs: Diminished breath sounds, greater bilateral bases, moderate effort, occasional soft end expiratory wheeze. Heart: Regular rate and rhythm; no gallop, rub audible. Abdomen: soft, NTTP, ND, normal BS. Extremities: no cyanosis, clubbing, or edema, LUE with + thrill, some ecchymoses noted. Neurological: patient awake, alert, oriented x 3; cognitive function appears intact upon questioning,; pupils equally reactive to light and accomodation; cranial nerves II-XII grossly normal, moving all 4 extremities, strength improved, mildly globally decreased. Psychiatric: affect appears normal, no acute evidence of depressive or anxiety feelings. Assessment and Plan: Please see hospital summary above. Discharge Activity: Return to Normal Activity May resume sexual activity in: No Restrictions Weight Bearing Status: Weight bearing as tolerated Call your doctor if you observe: Fever of 101 or Higher, Inability to have a bowel movement, Shortness of breath, Dizziness, Fainting spells, Chest pain, Uncontrolled pain Home Medications: Medications to take at Discharge Atenolol [Tenormin] 25 mg PO DAILY 05/09/17 Cholecalciferol (Vitamin D3) [Vitamin D3] 2,000 unit PO DAILY 05/09/17 Citalopram [Celexa] 20 mg PO QHS 05/09/17 Furosemide [Lasix] 20 mg PO DAILY 05/09/17 Loratadine 10 mg PO DAILY 05/09/17 Lovastatin [Mevacor] 40 mg PO DAILY 05/09/17 Sevelamer Carbonate [Renvela] 800 mg PO TID 05/09/17 Tamsulosin HCl [Flomax] 0.4 mg PO DAILY 05/09/17 B Complex W-C No.20/Folic Acid [Nephrocaps Softgel] 1 mg PO DAILY 08/14/17 Albuterol IH (ProAir) [Proair Hfa] 1 - 2 puff INHALATION Q4H PRN PRN #1 inhaler 08/16/17 Aspirin E.C. [Ecotrin] 81 mg PO DAILY@0800 tablet 08/16/17 Fluticasone/Salmeterol [Advair 250-50 Diskus] 1 ea IH BID #1 blst.w.dev 08/16/17 Following Prescrptions Were Given to Patient: Albuterol IH (ProAir) [Proair Hfa] 1 - 2 puff INHALATION Q4H PRN PRN #1 inhaler PRN Reason: dyspnea, wheezing Fluticasone/Salmeterol [Advair 250-50 Diskus] 1 ea IH BID #1 blst.w.dev Primary Care Physician: Doron Recio MD [Primary Care Provider] - Please follow up with your Primary Care Physician in: Follow-up within 3-5 days to review admission. Please Follow Up With: Francis Glass, When: Recommend follow-up evaluation per Pulmonary for COPD assessment/treatment. Patient Instructions: What is COPD?, Caring for Your Inhaler, Using an Inhaler with a Spacer, Using an Inhaler Without a Spacer, Why Do You Smoke?, Planning to Quit Smoking, Getting Support for Quitting Smoking, Coping with Smoking Withdrawal, ED Chest Pain NonCardiac, ED Chest Pain Atypical Unkn Cause Disposition: Home Minutes spent on discharge:: 35 Patient Condition:: Fair Meaningful Use Info Meaningful Use Diagnoses (Choose all that apply): None applicable Code Visit OBSV E&M: 30602 Observation care discharge
--- NOTE | 2017-08-16 12:25 | DS.PCM_ITS ---
Discharge Date and Diagnosis Date of Admission: 08/15/17 Date of Discharge: 08/16/17 - Primary Discharge Diagnosis Chest pain, Non-cardiac, Unspecific etiology, possibly secondary to musculoskeletal strain with coughing with COPD, untreated CAD Chronic COPD, untreated Tobacco use HTN HLD ESRD on HD secondary to HTN, PCKD EtOH Abuse - Secondary Discharge Diagnosis Chronic Problems (Last Updated 08/14/17 @ 14:15 by Selin uRbio) Benign hypertension (Chronic) Current drinker of alcohol (Chronic) Dyslipidemia (Chronic) Tobacco user (Chronic) PKD (polycystic kidney disease) (Chronic) CKD (chronic kidney disease), stage III (Chronic) COPD (chronic obstructive pulmonary disease) (Chronic) CKD (chronic kidney disease) (Chronic) Hospital Course and Treatment Imaging Results: 08/16/17 05:55 Nuclear Stress Test - Chemical [NM] AM (NON MEDS) Dr. Perez Wood Mill Supervisor Operations: None Procedures: EKG, Stress test Summary of Care Provided: The patient is a 61 y/o M w/ PMHx: CAD, Chronic COPD Untreated, Continued Tobacco Use, HTN, HLD, ESRD on HD secondary to HTN disease as well as PCKD, EtOH Abuse who presented to the [facility] ED on 08/15/17 with history of onset chest pain, left sided without radiation or associated nausea, emesis, diaphoresis or dyspnea, sharp in nature, prior to dialysis the day prior with evaluation following dialysis with recommendation to present to the emergency room however patient signed himself out AMA from the emergency room secondary to not wanting to wait with recurrent discomfort the day following with again primary care physician encouragement for evaluation. In the ED work-up included EKG sinus rhythm without evidence of acute ischemia, CXR without acute process aside chronic COPD changes, CBC w/ stable AOCD and chemistry w/ stable changes secondary to renal disease w/ ESRD, cardiac enzyme set x 1 normal. The patient was admitted to PCU, maintained on cardiac telemetry, serial cardiac enzymes were obtained as well as serial EKGs which remained unremarable. Patient underwent AM nuclear stress testing which was noted to be negative for inducible ischemia. FLP was obtained during admission. Patient was discharged to home in stable condition with recommendation for follow-up with primary care physician within 3-5 days as well as planned HD following discharge, arranged per Dr. Perez, extension worker who was consulted during admission secondary to ESRD on HD status. Upon discharge encouraged daily baby ASA as well as albuterol PRN and duoneb with consideration follow-up with Pulmonary for pulmonary function testing and evaluation/treatment of COPD. Encouraged tobacco cessation also. DAY OF DISCHARGE PROGRESS NOTE: Subjective: Patient without acute event overnight per self and nursing report. Patient denies fever, chills, nausea, emesis, abdominal pain, recurrent or worsened chest pain or dyspnea. Patient agreeable to discharge to home with planned HD outpatient in the afternoon, arranged per Dr. Perez given unremarkable stress testing. Patient will be discharged with follow-up with primary care physician within 3-5 days in addition to Dr. Perez as previously arranged and recommended pulmonary assessment for COPD evaluation/treatment. Objective: T 98.2, heart rate 68, BP 164/76, respiratory rate 18, 100% room air. Physical Examination: General: awake, alert, oriented x 3 and cooperative, seated upright in the bed, NAD. Skin: normal color, turgor, no icterus, cyanosis septal occasional extremity ecchymoses. HEENT: AT/NC, EOMI, PERRLA, MMM. Lungs: Diminished breath sounds, greater bilateral bases, moderate effort, occasional soft end expiratory wheeze. Heart: Regular rate and rhythm; no gallop, rub audible. Abdomen: soft, NTTP, ND, normal BS. Extremities: no cyanosis, clubbing, or edema, LUE with + thrill, some ecchymoses noted. Neurological: patient awake, alert, oriented x 3; cognitive function appears intact upon questioning,; pupils equally reactive to light and accomodation; cranial nerves II-XII grossly normal, moving all 4 extremities, strength improved, mildly globally decreased. Psychiatric: affect appears normal, no acute evidence of depressive or anxiety feelings. Assessment and Plan: Please see hospital summary above. Discharge Activity: Return to Normal Activity May resume sexual activity in: No Restrictions Weight Bearing Status: Weight bearing as tolerated Call your doctor if you observe: Fever of 101 or Higher, Inability to have a bowel movement, Shortness of breath, Dizziness, Fainting spells, Chest pain, Uncontrolled pain Home Medications: Medications to take at Discharge Atenolol [Tenormin] 25 mg PO DAILY 05/09/17 Cholecalciferol (Vitamin D3) [Vitamin D3] 2,000 unit PO DAILY 05/09/17 Citalopram [Celexa] 20 mg PO QHS 05/09/17 Furosemide [Lasix] 20 mg PO DAILY 05/09/17 Loratadine 10 mg PO DAILY 05/09/17 Lovastatin [Mevacor] 40 mg PO DAILY 05/09/17 Sevelamer Carbonate [Renvela] 800 mg PO TID 05/09/17 Tamsulosin HCl [Flomax] 0.4 mg PO DAILY 05/09/17 B Complex W-C No.20/Folic Acid [Nephrocaps Softgel] 1 mg PO DAILY 08/14/17 Albuterol IH (ProAir) [Proair Hfa] 1 - 2 puff INHALATION Q4H PRN PRN #1 inhaler 08/16/17 Aspirin E.C. [Ecotrin] 81 mg PO DAILY@0800 tablet 08/16/17 Fluticasone/Salmeterol [Advair 250-50 Diskus] 1 ea IH BID #1 blst.w.dev Following Prescrptions Were Given to Patient: Albuterol IH (ProAir) [Proair Hfa] 1 - 2 puff INHALATION Q4H PRN PRN #1 inhaler PRN Reason: dyspnea, wheezing Fluticasone/Salmeterol [Advair 250-50 Diskus] 1 ea IH BID #1 blst.w.dev Primary Care Physician: Doron Recio MD [Primary Care Provider] - Please follow up with your Primary Care Physician in: Follow-up within 3-5 days to review admission. Please Follow Up With: Francis Glass, When: Recommend follow-up evaluation per Pulmonary for COPD assessment/ treatment. Patient Instructions: What is COPD?, Caring for Your Inhaler, Using an Inhaler with a Spacer, Using an Inhaler Without a Spacer, Why Do You Smoke?, Planning to Quit Smoking, Getting Support for Quitting Smoking, Coping with Smoking Withdrawal, ED Chest Pain NonCardiac, ED Chest Pain Atypical Unkn Cause Disposition: Home Minutes spent on discharge:: 35 Patient Condition:: Fair Meaningful Use Info Meaningful Use Diagnoses (Choose all that apply): None applicable Code Visit OBSV E&M: 41427 Observation care discharge
== END 2017-08-16 10:52 | disposition home or self-care (01) ==
LOC: ED 19:48 → PCU 22:11
PROVIDERS: Admitting Provider Internal Medicine; Emergency Provider Emergency Medicine; Family Provider Family Medicine; PCP Family Medicine; Visit Provider Family Medicine
DX: R07.89 Other chest pain (principal); Q61.3 Polycystic kidney, unspecified; I12.0 Hypertensive chronic kidney disease with stage 5 chronic kidney disease or end stage renal disease; N18.6 End stage renal disease; J44.9 Chronic obstructive pulmonary disease, unspecified; E78.5 Hyperlipidemia, unspecified; E87.2 Acidosis; F17.200 Nicotine dependence, unspecified, uncomplicated; I25.10 Atherosclerotic heart disease of native coronary artery without angina pectoris; F10.20 Alcohol dependence, uncomplicated; Z99.2 Dependence on renal dialysis; Z79.899 Other long term (current) drug therapy
CPT/HCPCS: 36415; 78452; 80048; 80053; 80061; 83735; 84443; 84484; 85025; 85610; 85730; 93005; 93017; 96374; 99218; 99283; 99406; A9500; A4216; G0378; J2785

== ENCOUNTER → 2017-09-17 09:25 | Day surgery (SDC) | payer MEDICARE, SELFPAY ==
[2017-08-15 22:38] VITALS: BMI 33.5
[2017-08-16 07:28] VITALS: BP 164/66
[2017-08-16 10:03] VITALS: BP 164/76
[2017-08-29 09:40] VITALS: BMI 32.5
[2017-09-17 09:43] LABS: Hematocrit 32.8 % (40-54); Hemoglobin 11.1 g/dl (13.0-16.5); Mean Corp Hgb Conc 33.8 g/gl (32-36); Mean Corpuscular Hgb 34.5 pg (27.0-32.0); Mean Corpuscular Volume 101.9 fL (80-94); Mean Platelet Vol. 9.2 fl (6.2-12.0); Platelet Count 204 K/mm3 (150-450); RBC Distribution Width CV 14.3 % (11.6-14.6); RBC Distribution Width SD 51.7 fl (35.1-43.9); Red Blood Count 3.22 M/mm3 (4.6-6.2); Scan Indicated on CBC? Y/N NO; White Blood Count 6.1 K/mm3 (4.4-11.0)
[2017-09-17 09:56] LABS: Anion Gap 10 (5-15); BUN 29 mg/dL (7-18); BUN/Creat Ratio 6.7 RATIO (10-20); Calcium,Total 8.7 mg/dL (8.5-10.1); Chloride 94 mmol/L (98-107); Creatinine, Serum 4.35 mg/dL (0.70-1.30); EST Glomerular Filtration Rate 15 mL/min (>60); Est Glom Filt Rate - Afr Amer 18 mL/min (>60); Estimated Creatinine Clearance 18.06 ml/min; Glucose 91 mg/dL (74-106); Potassium 4.1 mmol/L (3.5-5.1); Sodium Level 132 mmol/L (136-145)
--- NOTE | 2017-09-17 11:29 | HP.PCM_ITS ---
Problem List (1) Problem with dialysis access Status: Acute History of Present Illness Date of Admission: 09/17/17 The patient is a 62 year old M who I saw in the office on August 04, 2017. He is a patient of Dr. De La Cruz. On November 12, 2016 she created a left upper extremity brachiocephalic arteriovenous fistula for him. Afterwards he had significant amount of arm pain and hand pain. There was significant concern about his having a arterial steal. On October 22, 2016 a left upper extremity duplex exam demonstrated brachial flow at 1938 cm/s flow. This was consistent with a very high flow fistula. When I saw him in the office on August 04 he was wishing to transfer his care so he could remain locally. He was complaining of significant left upper arm pain at the site of infiltration. I felt that the fistula had an adequate pulse , thrill, bruit. I recommended that we obtain a duplex imaging of his left upper arm as an outpatient. That examination was obtained and actually demonstrated dramatically different flow patterns with markedly diminished flow. I recommended to him a left upper extremity fistulogram. We had him previously scheduled and he called to cancel because of nondescript illness. The patient is rescheduled today. He states that the majority of the time they are able to access his fistula. He claims that the left hand pain that the had soon after creation has resolved. He does not have any other indwelling devices for dialysis. He is being successfully dialyzed via the left upper arm. Past Medical History Past Medical History (Chronic Problems): Chronic Problems (Last Reviewed 09/10/17 @ 08:04 by Denise Valencia) Benign hypertension (Chronic) Current drinker of alcohol (Chronic) Dyslipidemia (Chronic) Tobacco user (Chronic) PKD (polycystic kidney disease) (Chronic) CKD (chronic kidney disease), stage III (Chronic) COPD (chronic obstructive pulmonary disease) (Chronic) CKD (chronic kidney disease) (Chronic) Allergies Penicillins Allergy (Verified 09/10/17 08:05) Unknown Home Medications: Ambulatory Orders Medication Instructions Recorded Atenolol [Tenormin] 25 mg PO DINNER 05/09/17 Cholecalciferol (Vitamin D3) 4,000 unit PO DAILY 05/09/17 [Vitamin D3] Citalopram [Celexa] 20 mg PO QHS 05/09/17 Furosemide [Lasix] 60 mg PO DAILY 05/09/17 Loratadine 10 mg PO DAILY 05/09/17 Lovastatin [Mevacor] 20 mg PO DAILY 05/09/17 Sevelamer Carbonate [Renvela] 800 mg PO TID 05/09/17 Tamsulosin HCl [Flomax] 0.4 mg PO DAILY 05/09/17 Atenolol 50 mg PO BREAKFAST 08/29/17 Oxycodone HCl/Acetaminophen 1 - 2 tab PO Q8H PRN PRN 08/29/17 [Percocet 5/325] Albuterol Aerosols [Ventolin 2.5 mg INHALATION Q6H PRN PRN 09/16/17 Aerosols] Amlodipine [Norvasc] 7.5 mg PO DAILY 09/16/17 Calcitriol [Rocaltrol] 0.25 mcg PO DAILY 09/16/17 Ferrous Sulfate 325 mg PO DAILY@0800 09/16/17 Sodium Bicarbonate 650 mg PO TID 09/16/17 Surgical History: - - AVF left upper arm Smoking Status: Current every day smoker - *Family History Paternal History Items: No pertinent history Sibling History Items: Renal Disease - PCKD Review of Systems Constitutional: Denies: Weight Change Eyes: Denies: Blurred vision, Vision Change HEENT: Denies: Ear Pain, Eye Pain Cardiovascular: Denies: Chest Pain, Claudication Respiratory: Denies: Cough, Shortness of Breath Gastrointestinal: Denies: Hematemesis, Hematochezia Genitourinary: Denies: Dysuria, Hematuria Musculoskeletal: Denies: Leg Pain Skin: Denies: Jaundice Neurological: Denies: Confusion Psychiatric: Denies: Depression Endocrine: Denies: Change in Body Habitus Hematologic/ Lymphatic: Denies: Easy Bleeding VTE Information - Inpt Only VTE Present on Admission: No Patient Problems: Active and Suspected Problems (Last Reviewed 09/10/17 @ 08:04 by Denise Valencia) Problem with dialysis access (Acute) - Physical Exam General: Alert, Oriented x3 HEENT: Atraumatic Oral: Moist Mucosa Neck: Supple Lungs: Clear to auscultation Cardiovascular: Regular rate Abdomen: Bowel Sounds Present Extremities: - - Left upper extremity brachiocephalic AV fistula. On ultrasound inspection there is demonstrated wall thickening of the first 5 cm of the fistula with a focal area of relative stenosis. Neurological: Cranial nerves II-XII grossly intact Psych/Mental Status: Normal Affect Vital Signs BP 164/76 H 08/16/17 10:03 Weight: 220 lb Body Mass Index (BMI) 32.5 Laboratory Tests Past 24 Hrs 09/17/17 09/17/17 09:32 09:32 WBC 6.1 RBC 3.22 L Hgb 11.1 L Hct 32.8 L MCV 101.9 H MCH 34.5 H MCHC 33.8 RDW 14.3 RDW Differential 51.7 H Plt Count 204 MPV 9.2 Sodium 132 L Potassium 4.1 Chloride 94 L Carbon Dioxide 28.0 Anion Gap 10 BUN 29 H Creatinine 4.35 H Estim Creat Clear Calc 18.06 Est GFR (MDRD) Af Amer 18 L Est GFR (MDRD) Non-Af 15 L BUN/Creatinine Ratio 6.7 L Glucose 91 Calcium 8.7 Assessment/Plan Active and Suspected Problems (Last Reviewed 09/10/17 @ 08:04 by Denise Valencia) Problem with dialysis access (Acute) I have recommended to the patient that we pursue the left upper extremity fistula gram with possible endovascular intervention. He has had an opportunity to ask and have questions answered. On my clinical inspection and ultrasound inspection of the fistula I am suspecting a proximal venous area of wall thickening/stenosis. Pavel Nova M.D., F.A.C.S.
--- NOTE | 2017-09-17 11:29 | PCM.OPRPT ---
Problem List (1) Problem with dialysis access Status: Acute Report of Operation Date of Procedure: 09/17/17 Pre-Operative Diagnosis: History of infiltration and diminished flow left upper extremity brachiocephalic arteriovenous fistula Post-Operative Diagnosis: Proximal fistula venous stenosis Surgery/Procedure Performed:: Left upper extremity fistulogram with 7 x 60 mm drug-coated balloon Lutonix angioplasty Description of Surgical Findings:: Informed consent was obtained. 62-year-old gentleman was taken to the special procedures lab. He was placed upon the table. He drove himself and so no IV sedative was given. The left upper extremity was sterilely prepped and draped. As noted in the history and physical I performed ultrasound suggesting vein wall thickening in the proximal portion of the fistula. Using ultrasound identified the fistula in the mid upper arm. Under ultrasound guidance I injected 2% lidocaine. I inserted a micropuncture needle under ultrasound guidance retrograde with flow. Micropuncture wire was inserted and a 6 Sudanese short sheath dilator was inserted. Using 035 angled Glidewire and a 4 Sudanese angled glide catheter gain access to the brachial artery proximal to the fistula. Then utilizing Isovue I obtained a fistulogram of the left upper extremity and chest area. This demonstrated a focal area of venous stenosis in the proximal 6 cm of the fistula with diffuse irregularity. The anastomosis itself appeared to be widely patent. I recommended to the patient that we treat this with a drug-coated balloon. The Glidewire was reinserted and the 4 Sudanese glide catheter was removed. A 7 x 60 mm drug-coated balloon was inserted. (Lutonix) I treated the area of concern with insufflation to 12 gayatri of pressure for 3 minutes. Subsequent official gram performed demonstrated now dramatic improvement in flow. The sheath was removed. U suture of 4-0 nylon was placed. There was a good pulse, thrill, bruit at the completion. No apparent complication. Blood loss was minimal. The left extremity fistulogram demonstrates a left upper arm brachiocephalic arteriovenous fistula. There is moderate irregularity of the proximal 6 cm of the fistula. There is a focal area of greater than 70% stenosis. There is a widely patent arterial anastomosis. There is good central venous outflow. Subsequent to the angioplasty there appears to be now resolved area of stenosis in the proximal portion of the fistula. There also appears now to be more widely open flow through the fistula with somewhat less flow into the brachial artery distal to the anastomosis. Pavel Nova M.D., F.A.C.S. Type of Anesthesia:: Local
== END ==
PROVIDERS: Family Provider Family Medicine; PCP Family Medicine; Visit Provider Surgery
DX: T82.848A Pain due to vascular prosthetic devices, implants and grafts, initial encounter (principal); I12.9 Hypertensive chronic kidney disease with stage 1 through stage 4 chronic kidney disease, or unspecified chronic kidney disease; N18.3 Chronic kidney disease, stage 3 (moderate); E78.5 Hyperlipidemia, unspecified; Q61.3 Polycystic kidney, unspecified; J44.9 Chronic obstructive pulmonary disease, unspecified; F17.200 Nicotine dependence, unspecified, uncomplicated; Z79.51 Long term (current) use of inhaled steroids; Z79.899 Other long term (current) drug therapy
CPT/HCPCS: 36415; 36902; 76937; 80048; 85027; C2623; Q9967; C1725; C1769

== ENCOUNTER 2018-07-27 08:53 | Inpatient (IN) | payer MEDICARE, SELFPAY ==
[2018-07-27] VITALS (10 sets, daily range): BP systolic 149–170; BP diastolic 7–93; PULSE 72–90; RESP 14–22; TEMP 36.3–37.4; O2SAT 94–99; BMI 33.5; BMI 27.3; BMI 28.7
--- NOTE | 2018-07-27 09:13 | RAD_ITS ---
STUDY: X-RAY CHEST REASON FOR EXAM: Male, 62 years old. Productive cough. TECHNIQUE: PA and lateral views of the chest. COMPARISON: Comparison is made with prior study dated August 14, 2017. FINDINGS: EKG electrodes are seen. New infiltrate in the right upper lobe as well as in the right middle lobe and superior segment of the right lower lobe. Stable pleural parenchymal changes at the left lung base. Normal size heart. Normal mediastinum and ania. Normal visualized pulmonary arteries. Normal visualized aortic arch and descending thoracic aorta. Normal visualized thoracic spine. Healed left-sided rib fractures. There is no demonstrated abnormality of the visualized soft tissue structures of the upper abdomen. RAD/Chest PA and Lateral IMPRESSION: New infiltrate in the right upper lobe, right lower lobe and superior segment of the right lower lobe. Stable pleural parenchymal changes at the left lung base. Electronically Signed: Ronald Johnson MD at 10:47 EST Tel [phone], Service support ,
[2018-07-27] MEDS: Ipratropium/Albuterol Sulfate 3 ML AMPUL.NEB INHALATION ×2 (09:24→19:16)
[2018-07-27 09:42] LABS: Absolute Lymphocyte Count 1.03 X10^3/ul (0.83-4.51); Absolute Neutrophil Count 7.5 X10^3/uL (2.0-7.7); Basophil# 0.02 X10^3/uL; Basophil% 0.2 % (0-1); Eosinophil# 0.11 X10^3/uL; Eosinophils% 1.2 % (0-5); Hematocrit 30.1 % (40-54); Hemoglobin 10.4 g/dl (13.0-16.5); Lymphocyte # 1.03 X10^3/ul (4.0); Lymphocyte % 10.9 % (19-41); Mean Corp Hgb Conc 34.6 g/gl (32-36); Mean Corpuscular Hgb 35.5 pg (27.0-32.0); Mean Corpuscular Volume 102.7 fL (80-94); Mean Platelet Vol. 10.2 fl (6.2-12.0); Monocyte# 0.83 X10^3/uL; Monocyte% 8.8 % (0-10); Neutrophil # 7.46 X10^3/uL (2.7-7.7); Neutrophil % 78.8 % (47-70); Platelet Count 163 K/mm3 (150-450); RBC Distribution Width CV 13.3 % (11.6-14.6); RBC Distribution Width SD 50.4 fl (35.1-43.9); Red Blood Count 2.93 M/mm3 (4.6-6.2); White Blood Count 9.5 K/mm3 (4.4-11.0)
[2018-07-27 09:43] LABS: POSITIVE COUNT NO; POSITIVE DIFFERENTIAL NO; POSITIVE MORPHOLOGY NO
[2018-07-27 09:47] LABS: Anion Gap 12 (5-15); BUN 30 mg/dL (7-18); BUN/Creat Ratio 5.9 RATIO (10-20); Calcium,Total 8.9 mg/dL (8.5-10.1); Chloride 91 mmol/L (98-107); Creatinine, Serum 5.06 mg/dL (0.70-1.30); EST Glomerular Filtration Rate 12 mL/min (>60); Est Glom Filt Rate - Afr Amer 15 mL/min (>60); Estimated Creatinine Clearance 15.02 ml/min; Glucose 105 mg/dL (74-106); Potassium 4.5 mmol/L (3.5-5.1); Sodium Level 125 mmol/L (136-145)
[2018-07-27] MEDS: MethylPREDNISolone 125 MG/2 ML Vial IV (10:02)
[2018-07-27 10:05] LABS: Lactic Acid 1.6 mmol/L (0.4-2.0)
--- NOTE | 2018-07-27 11:06 | ED.VISSUMM ---
- ER Visit Summary Date of Service: 07/27/18 Chief Complaint: Cough History of Present Illness: The patient is a [address] Recio and Dr. Perez. He has a cough began 4 days ago. He reports is productive clear sputum without blood. Has had subjective fever and chills. He reports that he has had severe difficulty breathing. This is increased with coughing or walking. He has been wheezing. He is using his nebulizer with transient relief. Patient also reports he has had nausea and 2-3 episodes of diarrhea a day for the past 4 days. No blood in his stools. He complains of generalized weakness. Physical Examination: Vitals: Stable. Afebrile. General: Well-nourished and well-developed. Head: Normocephalic atraumatic. Neck: Supple, no lymphadenopathy. No JVD. Nontender. Cardiovascular: Regular rate and rhythm. No murmurs. Respiratory: No respiratory distress. Moderate wheezing bilaterally with mildly decreased air movement. Abdominal: Soft, nontender, nondistended, normal bowel sounds. No guarding, rebound, or peritoneal signs. Back: Nontender. Extremities: Nontender, no edema. Skin: Normal color, no rash. Neurologic: Alert and oriented ?3. Cranial nerves II through XII are intact. Normal strength and sensation. Psych: Normal affect. Test Results: CBC is remarkable for an H&H of 10.4 and 30.1, segment neutrophils of 79, and lymphocytes of 11. Chem-7 is marked for sodium 125, chloride 91, BUN 30, creatinine 5.06. Lactic acid is 1.6. Chest x-ray shows a right upper lobe and lower lobe infiltrate. Influenza was negative. Emergency Department Course and Treatment: I discussed the findings with the patient and have suggested that he be admitted to the hospital. He is quite adamant that he would rather go home. He was treated with albuterol and Atrovent aerosols. He was given Solu-Medrol IV. He was given a dose of cefepime and vancomycin IV. He had a sputum culture obtained. Treatment Plan: Patient was discussed with Dr. Perez, his material man. She reports that they will give him cefepime IV after dialysis. She asked that we use cefepime rather than Levaquin because he is an alcoholic and there is risk of aspiration. If he is not improving with this he will return to the hospital. Patient is happy with this plan. Return to the emergency department for any worsening symptoms. He is instructed to follow-up with Dr. Recio within 1 week for another exam and repeat chest x-ray. After discussion with Dr. Perez I went back and spoke with the patient. He is now amenable to being admitted to the hospital. He will be discussed with Dr. Guillen. He asked that we give him Levaquin rather than the cefepime. This was written for. However, the patient had already received the cefepime. He will be admitted for further evaluation and treatment. Disposition: Admitted in improved condition. Impression: 1. Pneumonia, healthcare acquired. 2. End-stage renal disease. 3. Hyponatremia. 4. Alcoholism. This note was generated with [employer] dictation software. It may contain incorrect words, spelling, and punctuation that were not noted in review of the chart prior to signing ED Disposition - Plan for ED Patient: Disposition: Acute [facility], [facility] Chief Complaint: Shortness of Breath
--- NOTE | 2018-07-27 11:09 | ED.DCSUM_ITS ---
- ER Visit Summary Date of Service: 07/27/18 Chief Complaint: Cough History of Present Illness: The patient is a [address] Recio and Dr. Perez. He has a cough began 4 days ago. He reports is productive clear sputum without blood. Has had subjective fever and chills. He reports that he has had severe difficulty breathing. This is increased with coughing or walking. He has been wheezing. He is using his nebulizer with transient relief. Patient also reports he has had nausea and 2-3 episodes of diarrhea a day for the past 4 days. No blood in his stools. He complains of generalized weakness. Physical Examination: Vitals: Stable. Afebrile. General: Well-nourished and well-developed. Head: Normocephalic atraumatic. Neck: Supple, no lymphadenopathy. No JVD. Nontender. Cardiovascular: Regular rate and rhythm. No murmurs. Respiratory: No respiratory distress. Moderate wheezing bilaterally with mildly decreased air movement. Abdominal: Soft, nontender, nondistended, normal bowel sounds. No guarding, rebound, or peritoneal signs. Back: Nontender. Extremities: Nontender, no edema. Skin: Normal color, no rash. Neurologic: Alert and oriented ?3. Cranial nerves II through XII are intact. Normal strength and sensation. Psych: Normal affect. Test Results: CBC is remarkable for an H&H of 10.4 and 30.1, segment neutrophils of 79, and lymphocytes of 11. Chem-7 is marked for sodium 125, chloride 91, BUN 30, creatinine 5.06. Lactic acid is 1.6. Chest x-ray shows a right upper lobe and lower lobe infiltrate. Influenza was negative. Emergency Department Course and Treatment: I discussed the findings with the patient and have suggested that he be admitted to the hospital. He is quite adamant that he would rather go home. He was treated with albuterol and Atrovent aerosols. He was given Solu-Medrol IV. He was given a dose of cefepime and vancomycin IV. He had a sputum culture obtained. Treatment Plan: Patient was discussed with Dr. Perez, his movie extra. She reports that they will give him cefepime IV after dialysis. She asked that we use cefepime rather than Levaquin because he is an alcoholic and there is risk of aspiration. If he is not improving with this he will return to the hospital. Patient is happy with this plan. Return to the emergency department for any worsening symptoms. He is instructed to follow-up with Dr. Recio within 1 week for another exam and repeat chest x-ray. After discussion with Dr. Perez I went back and spoke with the patient. He is now amenable to being admitted to the hospital. He will be discussed with Dr. Valentina gallardo. He asked that we give him Levaquin rather than the cefepime. This was written for. However, the patient had already received the cefepime. He will be admitted for further evaluation and treatment. Disposition: Admitted in improved condition. Impression: 1. Pneumonia, healthcare acquired. 2. End-stage renal disease. 3. Hyponatremia. 4. Alcoholism. This note was generated with [employer] dictation software. It may contain incorrect words, spelling, and punctuation that were not noted in review of the chart prior to signing ED Disposition - Plan for ED Patient: Disposition: Acute Care [facility] Chief Complaint: Shortness of Breath
--- NOTE | 2018-07-27 12:05 | NURSING ---
DR DOMINIQUE FOR DR JOHNSON
--- NOTE | 2018-07-27 12:06 | NURSING ---
MED SURG PNEUMONIA TERELETSKY
[2018-07-27] MEDS: levoFLOXacin IV 750 MG/150 ML BAG 100 MG IV (12:33)
--- NOTE | 2018-07-27 13:17 | CON.PCM_ITS ---
Consultation - Renal 07/27/18 PCP/ Referring MD: Requesting physician: [] Primary care physician: Doron Recio MD Reason for Consultation:: ESRD HD TTS - History of Present Illness History of Present Illness: The patient is a 62 year old M well known to me with ESRD due to PCKD admitted for increased shortness of breath, wheezing with cough that began 4 days ago. He reports productive clear sputum without blood. Has had subjective fever and chills. He reports that he has had difficulty breathing this morning despite aerosol treatments. He complains of weakness, not feeling well overall. Patient also reports he has had nausea and 2-3 episodes of diarrhea a day for the past 4 days to ER doctor but denied to me. He continues to smoke and drink heavily. - Allergies Allergies: Allergies Penicillins Allergy (Verified 07/27/18 08:56) Unknown - Current Medications Current Medications: Current Medications Albuterol Sulfate (Ventolin Aerosols) 2.5 mg INHALATION Q2H PRN PRN PRN Reason: SHORTNESS OF BREATH Albuterol/Ipratropium (Duoneb) 3 ml INHALATION Q6H.RT BIRDIE Atenolol (Tenormin (Beta Sb)) 25 mg PO DINNER BIRDIE Atorvastatin Calcium (Lipitor) 10 mg PO QHS BIRDIE Levofloxacin (Levaquin Iv) 750 mg in 150 mls @ 100 mls/hr IV X1 ONE Stop: 07/27/18 13:30 Last Admin: 07/27/18 12:33 Dose: 100 mls/hr Levofloxacin (Levaquin Iv) 500 mg in 100 mls @ 100 mls/hr IV Q48 BIRDIE Levofloxacin (Levaquin Iv) 500 mg in 100 mls @ 100 mls/hr IV X1 ONE Stop: 07/27/18 14:29 Methylprednisolone (Solu-Medrol) 40 mg IV Q8 BIRDIE Multivit/Ca Carb/B Cmplx/FA/Prenat (Nephrocaps, Renaphro) 1 capsule PO DAILY BIRDIE Nicotine (Nicoderm Cq (Pbkc)) 21 mg TRANSDERM. DAILY BIRDIE Sevelamer Carbonate (Renvela) 3,200 mg PO DINNER BIRDIE Sodium Chloride () 5 - 15 ml IV UD PRN PRN Reason: SALINE FLUSH Tamsulosin HCl (Flomax) 0.4 mg PO DAILY@0830 BIRDIE - Past Medical History Past Medical History (Chronic Problems): Chronic Problems (Last Reviewed 09/10/17 @ 08:04 by Denise Valencia) Benign hypertension (Chronic) Current drinker of alcohol (Chronic) Dyslipidemia (Chronic) Tobacco user (Chronic) PKD (polycystic kidney disease) (Chronic) CKD (chronic kidney disease), stage III (Chronic) COPD (chronic obstructive pulmonary disease) (Chronic) CKD (chronic kidney disease) (Chronic) - Past Surgical History Surgical History: - - AVF left upper arm - Social History Marital Status: Single Smoking Status: Current every day smoker - Family History Paternal Family History: Family History (Last Reviewed 09/10/17 @ 08:04 by Denise Valencia) Mother Cancer Father Cancer History Items: No pertinent history Sibling Family History: Family History (Last Reviewed 09/10/17 @ 08:04 by Denise Valencia) Mother Cancer Father Cancer History Items: Renal Disease - PCKD Review of Systems Constitutional: Reports: Chills, Fever, Malaise, Weakness, Fatigue Eyes: Denies: Vision Change HEENT: Denies: Head Aches Cardiovascular: Reports: Palpitations. Denies: Chest Pain, Edema, Syncope Respiratory: Reports: Cough, Shortness of Breath, Shortness of breath upon exertion, Sputum production, Wheezing. Denies: Hemoptysis Gastrointestinal: Reports: Nausea, Vomiting. Denies: Abdominal Pain, Constipation, Diarrhea Genitourinary: Denies: Dysuria Skin: Denies: Rash Neurological: Reports: Tremor, - - generalized weakness Psychiatric: Denies: Anxiety, Depression Hematologic/ Lymphatic: Reports: Anemia - Physical Exam General: Alert, Oriented x3, Cooperative, No apparent distress Oral: Moist Mucosa Neck: Supple Lungs: Rhonchi, Short of Breath, Wheezes Cardiovascular: Regular rate Abdomen: Bowel Sounds Present, Soft, Non Tender, Non-Distended, Obese Extremities: No edema, - - AVF left upper arm Skin: No rashes Musculoskeletal: No Muscle Wasting Neurological: Cranial nerves II-XII grossly intact Psych/Mental Status: Normal Affect, Alert and oriented to time, place, person, mood and affect Vital Signs Temp Pulse Resp BP Pulse Ox 97.4 F L 79 20 H 164/7 H 96 07/27/18 12:55 07/27/18 12:55 07/27/18 12:55 07/27/18 12:55 07/27/18 12:55 Oxygen Delivery Method Room Air Weight: 85.6 kg Body Mass Index (BMI) 28.7 Microbiology Past 72 Hours 07/27/18 11:12 Influenza Types A,B Direct FA (ANTHONY) - Final Mucosa - Nasopharyngeal Laboratory Tests Past 24 Hrs 07/27/18 07/27/18 07/27/18 09:22 09:22 09:22 WBC 9.5 RBC 2.93 L Hgb 10.4 L Hct 30.1 L MCV 102.7 H MCH 35.5 H MCHC 34.6 RDW 13.3 RDW Differential 50.4 H Plt Count 163 MPV 10.2 Immature Gran % (Auto) 0.100 Neut % (Auto) 78.8 H Lymph % (Auto) 10.9 L [place] % (Auto) 8.8 Eos % (Auto) 1.2 Baso % (Auto) 0.2 Absolute Neuts (auto) 7.5 Absolute Lymphs (auto) 1.03 Total Counted Not Reportable Sodium 125 L Potassium 4.5 Chloride 91 L Carbon Dioxide 22.0 Anion Gap 12 BUN 30 H Creatinine 5.06 H Estim Creat Clear Calc 15.02 Est GFR (MDRD) Af Amer 15 L Est GFR (MDRD) Non-Af 12 L BUN/Creatinine Ratio 5.9 L Glucose 105 Lactic Acid 1.6 Calcium 8.9 Assessment/Plan All Active Problems (Last Reviewed 09/10/17 @ 08:04 by Denise Valencia) History of angioplasty of peripheral vessel (Acute) Problem with dialysis access (Acute) Surgically constructed arteriovenous fistula (Acute) Flank pain (Resolved) Abdominal pain (Resolved) ESRD (end stage renal disease) (Acute) Metabolic acidosis (Acute) 1. ESRD due to PCKD HD TTS. Arrange dialysis tomorrow. 2. Pneumonia iv antbx, check vanco level before redosing 3. hyponatremia sodium low likely due to alcoholism 4. HTN stable 5. Alcoholism 6. COPD tobacco use.
--- NOTE | 2018-07-27 13:39 | NURSING ---
Call to Dr. Perez's office for updated medication list.
[2018-07-27] MEDS: SEVELAMER CARBONATE 800 MG TABLET 3200 MG PO (17:22)
[2018-07-27] MEDS: Atenolol 25 MG Tablet PO (17:22)
[2018-07-27] MEDS: Citalopram 20 MG Tablet PO (17:26)
[2018-07-27] MEDS: Atorvastatin Calcium 10 MG Tablet PO (17:28)
--- NOTE | 2018-07-27 18:40 | PCM.HP.STD ---
Problem List (1) Nonproductive cough Status: Acute (2) Shortness of breath Status: Acute History of Present Illness Date of Admission: 07/27/18 Chief Complaint: Nonproductive cough, shortness of breath The patient is a 62 year old M who was seen in the emergency room at [facility] with chief complaint of nonproductive cough and some shortness of breath for the past 3-4 days. Patient denies any chills or fever, he states his sputum is clear. He denies any hemoptysis. Patient currently smokes a pack of cigarettes a day and drinks a 6 pack of beer a day. He has a chronic dialysis patient and had a full session of dialysis on Friday. Workup in the emergency room included a chest x-ray which showed an infiltrate in the right upper lobe, right lower lobe, and superior segment of the right lower lobe. There were parenchymal changes at the left lung base which were chronic. Patient's white blood cell count was normal, hemoglobin was 10.4, patient's chemistry panel was remarkable for a sodium of 125, creatinine 5.06, BUN of 30, and his lactic acid was normal. Patient was afebrile, his pulse ox on room air was 95%. On examination, patient had coarse wheezing over all lung tee. Patient was given IV Solu-Medrol in the emergency room, he was also given IV antibiotics, patient will be admitted to [facility] with a diagnosis of community-acquired pneumonia and exacerbation of COPD. Past Medical History Past Medical History (Chronic Problems): Chronic Problems (Last Updated 07/27/18 @ 14:05 by Ely Perez DO) ESRD (end stage renal disease) on dialysis (Chronic) Surgically constructed arteriovenous fistula (Chronic) Benign hypertension (Chronic) Current drinker of alcohol (Chronic) Dyslipidemia (Chronic) Tobacco user (Chronic) PKD (polycystic kidney disease) (Chronic) CKD (chronic kidney disease), stage III (Chronic) COPD (chronic obstructive pulmonary disease) (Chronic) CKD (chronic kidney disease) (Chronic) ESRD (end stage renal disease) (Chronic) Medical History: Medical History (Last Updated 07/27/18 @ 14:05 by Ely Perez DO) Problem with dialysis access (Resolved) T82.898A Surgically constructed arteriovenous fistula (Chronic) Z98.890 Adrenal adenoma D35.00 BPH (benign prostatic hyperplasia) N40.0 Back pain M54.9 COPD (chronic obstructive pulmonary disease) J44.9 Chronic renal failure, stage 4 (severe) N18.4 Diverticulosis K57.90 Hiatal hernia K44.9 HTN (hypertension) I10 Allergies Penicillins Allergy (Verified 07/27/18 08:56) Unknown Home Medications: Ambulatory Orders Medication Instructions Recorded Atenolol [Tenormin] 25 mg PO DINNER 05/09/17 Furosemide [Lasix] 20 mg PO DAILY 05/09/17 Loratadine 10 mg PO DAILY 05/09/17 Lovastatin [Mevacor] 40 mg PO DAILY 05/09/17 Sevelamer Carbonate [Renvela] 3,200 mg PO DINNER 05/09/17 Tamsulosin HCl [Flomax] 0.4 mg PO DAILY 05/09/17 Citalopram [Celexa] 20 mg PO QHS 07/27/18 Folic Acid/Vitamin B Comp W-C 1 capsule PO DAILY 07/27/18 [Nephrocaps, Renaphro] Surgical History: Surgical History (Last Updated 07/27/18 @ 14:05 by Ely Perez DO) History of angioplasty of peripheral vessel (Resolved) Z98.62 Surgically constructed arteriovenous fistula Z98.890 Surgical History: - - AVF left upper arm Psychiatric History: No pertinent psych hx Lives: Alone Smoking Status: Current every day smoker Tobacco Use: Cigarettes Alcohol: Heavy Drugs: None - *Family History Paternal Family History: Family History (Last Reviewed 09/10/17 @ 08:04 by Denise Valencia) Mother Cancer Father Cancer History Items: Cancer - Cancer of the throat Sibling Family History: Family History (Last Reviewed 09/10/17 @ 08:04 by Denise Valencia) Mother Cancer Father Cancer History Items: Renal Disease - PCKD Maternal Family History: Family History (Last Reviewed 09/10/17 @ 08:04 by Denise Valencia) Mother Cancer Father Cancer History Items: Cancer - from brain cancer Review of Systems Constitutional: Denies: Anorexia, Chills, Fever, Night Sweats, Malaise, Weakness, Weight Change, Fatigue Eyes: Denies: Blurred vision, Cataracts, Conjunctivae Inflammation, Double vision, Drainage HEENT: Denies: Dysphasia, Ear Pain, Eye Pain, Hearing Changes, Nasal bleeding, Nasal Congestion, Post Nasal Drip Cardiovascular: Denies: Chest Pain, Claudication, Chest Pressure, Chest Tightness, Edema, Heaviness, Orthopnea, Palpitations, Paroxysmal Noc. Dyspnea, Syncope Respiratory: Reports: Cough, Shortness of Breath, Shortness of breath upon exertion, Sputum production, Wheezing. Denies: Hemoptysis, Pleuritic Pain, Shortness of breath at rest Gastrointestinal: Denies: Abdominal Pain, Constipation, Diarrhea, Hematemesis, Hematochezia, Nausea, Melena, Vomiting Genitourinary: Denies: Dysuria, Frequency, Hematuria, Hesitancy, Nocturia, Retention, Urgency Musculoskeletal: Denies: Back Pain, Foot Pain, Hand Pain, Joint Pain, Joint stiffness, Joint swelling, Joint Tenderness, Leg Pain Skin: Denies: Dryness, Pruritis, Rash Neurological: Denies: Blurred vision, Double vision, Change in Speech, Slurred speech, Difficulty swallowing, Focal weakness, Headaches, Incoordination, Numbness, Tingling Psychiatric: Denies: Anxiety, Depression, Homicidal Ideations, Suicidal Ideations Endocrine: Denies: Change in Body Habitus, Heat/ Cold Intolerance, Polydipsia, Polyuria Hematologic/ Lymphatic: Denies: Adenopathy, Anemia, Easy Bruising, Easy Bleeding, Petechiae, Purpura VTE Information - Inpt Only VTE Present on Admission: No VTE Mechan Device Prophylaxis: SCD's VTE Pharm Prophylaxis ordered?: No Reason prophylaxis not ordered:: Treatment Not Indicated - SCD's ordered Patient Problems: Active and Suspected Problems (Last Updated 07/27/18 @ 18:48 by Ronal Guillen DO) Nonproductive cough (Acute) Shortness of breath (Acute) Hyponatremia (Acute) Pneumonia (Acute) - Physical Exam General: Alert, Oriented x3, Cooperative, No apparent distress, Well developed, Well nourished HEENT: Atraumatic, PERRLA, EOMI, Normocephalic Oral: Moist Mucosa Neck: Supple, No JVD, Negative Carotid Bruits, No Nuchal Rigidity, Trachea Midline, Thyroid Normal Size and Texture Lungs: No rhonchi, No rales, Diminished, Wheezes - Expiratory wheezes are noted over both lungs Cardiovascular: Regular rate, Regular Rhythm, Normal S1, Normal S2, No murmurs, No Ectopic Activity, PMI Normal Abdomen: Bowel Sounds Present, Soft, Non Tender, Non-Distended, No hernias noted Extremities: No clubbing, No cyanosis, No edema, Capillary Refill Less than 3 Seconds Skin: No rashes, No breakdown Musculoskeletal: No Tenderness to Palpation of Joints or Extremities Neurological: Cranial nerves II-XII grossly intact, Neuro grossly intact, Sensory exam intact to light touch and pain, Coordination normal Psych/Mental Status: Normal Affect, Appropriate, Alert and oriented to time, place, person, mood and affect Vital Signs Temp Pulse Resp BP Pulse Ox 99.4 F H 84 18 155/77 H 96 07/27/18 17:21 07/27/18 17:21 07/27/18 17:21 07/27/18 17:21 07/27/18 17:21 Oxygen Delivery Method Room Air Weight: 85.6 kg Body Mass Index (BMI) 28.7 Intake and Output for Last 24 Hours 07/25/18 07/26/18 07/27/18 23:59 23:59 23:59 Intake Total 400 / 400 Output Total 250 / 250 Balance 150 / 150 Microbiology Past 72 Hours 07/27/18 15:15 Streptococcus pneumoniae Antigen (M - Final Urine, Clean Catch 07/27/18 15:15 Legionella Antigen - Final Urine, Clean Catch 07/27/18 11:11 Respiratory Panel (PCR) - Final Mucosa - Nasopharyngeal 07/27/18 11:12 Influenza Types A,B Direct FA (ANTHONY) - Final Mucosa - Nasopharyngeal Laboratory Tests Past 24 Hrs 07/27/18 07/27/18 07/27/18 09:22 09:22 09:22 WBC 9.5 RBC 2.93 L Hgb 10.4 L Hct 30.1 L MCV 102.7 H MCH 35.5 H MCHC 34.6 RDW 13.3 RDW Differential 50.4 H Plt Count 163 MPV 10.2 Immature Gran % (Auto) 0.100 Neut % (Auto) 78.8 H Lymph % (Auto) 10.9 L [place] % (Auto) 8.8 Eos % (Auto) 1.2 Baso % (Auto) 0.2 Absolute Neuts (auto) 7.5 Absolute Lymphs (auto) 1.03 Total Counted Not Reportable Sodium 125 L Potassium 4.5 Chloride 91 L Carbon Dioxide 22.0 Anion Gap 12 BUN 30 H Creatinine 5.06 H Estim Creat Clear Calc 15.02 Est GFR (MDRD) Af Amer 15 L Est GFR (MDRD) Non-Af 12 L BUN/Creatinine Ratio 5.9 L Glucose 105 Lactic Acid 1.6 Calcium 8.9 Assessment/Plan All Active Problems (Last Updated 07/27/18 @ 18:48 by Ronal Guillen DO) Nonproductive cough (Acute) Shortness of breath (Acute) Hyponatremia (Acute) Pneumonia (Acute) History of angioplasty of peripheral vessel (Resolved) Problem with dialysis access (Resolved) Flank pain (Resolved) Abdominal pain (Resolved) Metabolic acidosis (Resolved) #1 right upper and right lower lobe community-acquired pneumonia-suspect gram-positive bacterial, patient will be admitted to [facility] 3, he will have aerosol treatments administered, IV Levaquin will be administered, sputum culture will be obtained, respiratory panel will be obtained #2 acute exacerbation of chronic obstructive pulmonary disease-IV Solu-Medrol will be administered #3 end-stage renal disease-nephrology will participate in his care, patient will have dialysis tomorrow #4 chronic alcohol intake #5 hyponatremia #6 hyperlipidemia #7 hypertension #8 anemia of chronic kidney disease Code Visit Inpatient E&M: 38042 Init Hosp L3
--- NOTE | 2018-07-27 18:44 | HP.PCM_ITS ---
Problem List (1) Nonproductive cough Status: Acute (2) Shortness of breath Status: Acute History of Present Illness Date of Admission: 07/27/18 Chief Complaint: Nonproductive cough, shortness of breath The patient is a 62 year old M who was seen in the emergency room at [facility] with chief complaint of nonproductive cough and some shortness of breath for the past 3-4 days. Patient denies any chills or fever, he states his sputum is clear. He denies any hemoptysis. Patient currently smokes a pack of cigarettes a day and drinks a 6 pack of beer a day. He has a chronic dialysis patient and had a full session of dialysis on Friday. Workup in the emergency room included a chest x-ray which showed an infiltrate in the right upper lobe, right lower lobe, and superior segment of the right lower lobe. There were parenchymal changes at the left lung base which were chronic. Patient's white blood cell count was normal, hemoglobin was 10.4, patient's chemistry panel was remarkable for a sodium of 125, creatinine 5.06, BUN of 30, and his lactic acid was normal. Patient was afebrile, his pulse ox on room air was 95%. On examination, patient had coarse wheezing over all lung tee. Patient was given IV Solu-Medrol in the emergency room, he was also given IV antibiotics, patient will be admitted to [facility] with a diagnosis of community- acquired pneumonia and exacerbation of COPD. Past Medical History Past Medical History (Chronic Problems): Chronic Problems (Last Updated 07/27/18 @ 14:05 by Ely Perez DO) ESRD (end stage renal disease) on dialysis (Chronic) Surgically constructed arteriovenous fistula (Chronic) Benign hypertension (Chronic) Current drinker of alcohol (Chronic) Dyslipidemia (Chronic) Tobacco user (Chronic) PKD (polycystic kidney disease) (Chronic) CKD (chronic kidney disease), stage III (Chronic) COPD (chronic obstructive pulmonary disease) (Chronic) CKD (chronic kidney disease) (Chronic) ESRD (end stage renal disease) (Chronic) Medical History: Medical History (Last Updated 07/27/18 @ 14:05 by Ely Perez DO) Problem with dialysis access (Resolved) T82.898A Surgically constructed arteriovenous fistula (Chronic) Z98.890 Adrenal adenoma D35.00 BPH (benign prostatic hyperplasia) N40.0 Back pain M54.9 COPD (chronic obstructive pulmonary disease) J44.9 Chronic renal failure, stage 4 (severe) N18.4 Diverticulosis K57.90 Hiatal hernia K44.9 HTN (hypertension) I10 Allergies Penicillins Allergy (Verified 07/27/18 08:56) Unknown Home Medications: Ambulatory Orders Medication Instructions Recorded Atenolol [Tenormin] 25 mg PO DINNER 05/09/17 Furosemide [Lasix] 20 mg PO DAILY 05/09/17 Loratadine 10 mg PO DAILY 05/09/17 Lovastatin [Mevacor] 40 mg PO DAILY 05/09/17 Sevelamer Carbonate [Renvela] 3,200 mg PO DINNER 05/09/17 Tamsulosin HCl [Flomax] 0.4 mg PO DAILY 05/09/17 Citalopram [Celexa] 20 mg PO QHS 07/27/18 Folic Acid/Vitamin B Comp W-C 1 capsule PO DAILY 07/27/18 [Nephrocaps, Renaphro] Surgical History: Surgical History (Last Updated 07/27/18 @ 14:05 by Ely Perez DO) History of angioplasty of peripheral vessel (Resolved) Z98.62 Surgically constructed arteriovenous fistula Z98.890 Surgical History: - - AVF left upper arm Psychiatric History: No pertinent psych hx Lives: Alone Smoking Status: Current every day smoker Tobacco Use: Cigarettes Alcohol: Heavy Drugs: None - *Family History Paternal Family History: Family History (Last Reviewed 09/10/17 @ 08:04 by Denise Valencia) Mother Cancer Father Cancer History Items: Cancer - Cancer of the throat Sibling Family History: Family History (Last Reviewed 09/10/17 @ 08:04 by Denise Valencia) Mother Cancer Father Cancer History Items: Renal Disease - PCKD Maternal Family History: Family History (Last Reviewed 09/10/17 @ 08:04 by Denise Valencia) Mother Cancer Father Cancer History Items: Cancer - from brain cancer Review of Systems Constitutional: Denies: Anorexia, Chills, Fever, Night Sweats, Malaise, Weakness, Weight Change, Fatigue Eyes: Denies: Blurred vision, Cataracts, Conjunctivae Inflammation, Double vision, Drainage HEENT: Denies: Dysphasia, Ear Pain, Eye Pain, Hearing Changes, Nasal bleeding, Nasal Congestion, Post Nasal Drip Cardiovascular: Denies: Chest Pain, Claudication, Chest Pressure, Chest Tightness, Edema, Heaviness, Orthopnea, Palpitations, Paroxysmal Noc. Dyspnea, Syncope Respiratory: Reports: Cough, Shortness of Breath, Shortness of breath upon exertion, Sputum production, Wheezing. Denies: Hemoptysis, Pleuritic Pain, Shortness of breath at rest Gastrointestinal: Denies: Abdominal Pain, Constipation, Diarrhea, Hematemesis, Hematochezia, Nausea, Melena, Vomiting Genitourinary: Denies: Dysuria, Frequency, Hematuria, Hesitancy, Nocturia, Retention, Urgency Musculoskeletal: Denies: Back Pain, Foot Pain, Hand Pain, Joint Pain, Joint stiffness, Joint swelling, Joint Tenderness, Leg Pain Skin: Denies: Dryness, Pruritis, Rash Neurological: Denies: Blurred vision, Double vision, Change in Speech, Slurred speech, Difficulty swallowing, Focal weakness, Headaches, Incoordination, Numbness, Tingling Psychiatric: Denies: Anxiety, Depression, Homicidal Ideations, Suicidal Ideations Endocrine: Denies: Change in Body Habitus, Heat/ Cold Intolerance, Polydipsia, Polyuria Hematologic/ Lymphatic: Denies: Adenopathy, Anemia, Easy Bruising, Easy Bleeding, Petechiae, Purpura VTE Information - Inpt Only VTE Present on Admission: No VTE Mechan Device Prophylaxis: SCD's VTE Pharm Prophylaxis ordered?: No Reason prophylaxis not ordered:: Treatment Not Indicated - SCD's ordered Patient Problems: Active and Suspected Problems (Last Updated 07/27/18 @ 18:48 by Ronal Guillen DO) Nonproductive cough (Acute) Shortness of breath (Acute) Hyponatremia (Acute) Pneumonia (Acute) - Physical Exam General: Alert, Oriented x3, Cooperative, No apparent distress, Well developed, Well nourished HEENT: Atraumatic, PERRLA, EOMI, Normocephalic Oral: Moist Mucosa Neck: Supple, No JVD, Negative Carotid Bruits, No Nuchal Rigidity, Trachea Mi dline, Thyroid Normal Size and Texture Lungs: No rhonchi, No rales, Diminished, Wheezes - Expiratory wheezes are noted over both lungs Cardiovascular: Regular rate, Regular Rhythm, Normal S1, Normal S2, No murmurs, No Ectopic Activity, PMI Normal Abdomen: Bowel Sounds Present, Soft, Non Tender, Non-Distended, No hernias noted Extremities: No clubbing, No cyanosis, No edema, Capillary Refill Less than 3 Seconds Skin: No rashes, No breakdown Musculoskeletal: No Tenderness to Palpation of Joints or Extremities Neurological: Cranial nerves II-XII grossly intact, Neuro grossly intact, Sensory exam intact to light touch and pain, Coordination normal Psych/Mental Status: Normal Affect, Appropriate, Alert and oriented to time, place, person, mood and affect Vital Signs Temp Pulse Resp BP Pulse Ox 99.4 F H 84 18 155/77 H 96 07/27/18 17:21 07/27/18 17:21 07/27/18 17:21 07/27/18 17:21 07/27/18 17:21 Oxygen Delivery Method Room Air Weight: 85.6 kg Body Mass Index (BMI) 28.7 Intake and Output for Last 24 Hours 07/25/18 07/26/18 07/27/18 23:59 23:59 23:59 Intake Total 400 / 400 Output Total 250 / 250 Balance 150 / 150 Microbiology Past 72 Hours 07/27/18 15:15 Streptococcus pneumoniae Antigen (M - Final Urine, Clean Catch 07/27/18 15:15 Legionella Antigen - Final Urine, Clean Catch 07/27/18 11:11 Respiratory Panel (PCR) - Final Mucosa - Nasopharyngeal 07/27/18 11:12 Influenza Types A,B Direct FA (ANTHONY) - Final Mucosa - Nasopharyngeal Laboratory Tests Past 24 Hrs 07/27/18 07/27/18 07/27/18 09:22 09:22 09:22 WBC 9.5 RBC 2.93 L Hgb 10.4 L Hct 30.1 L MCV 102.7 H MCH 35.5 H MCHC 34.6 RDW 13.3 RDW Differential 50.4 H Plt Count 163 MPV 10.2 Immature Gran % (Auto) 0.100 Neut % (Auto) 78.8 H Lymph % (Auto) 10.9 L [place] % (Auto) 8.8 Eos % (Auto) 1.2 Baso % (Auto) 0.2 Absolute Neuts (auto) 7.5 Absolute Lymphs (auto) 1.03 Total Counted Not Reportable Sodium 125 L Potassium 4.5 Chloride 91 L Carbon Dioxide 22.0 Anion Gap 12 BUN 30 H Creatinine 5.06 H Estim Creat Clear Calc 15.02 Est GFR (MDRD) Af Amer 15 L Est GFR (MDRD) Non-Af 12 L BUN/Creatinine Ratio 5.9 L Glucose 105 Lactic Acid 1.6 Calcium 8.9 Assessment/Plan All Active Problems (Last Updated 07/27/18 @ 18:48 by Ronal Guillen DO) Nonproductive cough (Acute) Shortness of breath (Acute) Hyponatremia (Acute) Pneumonia (Acute) History of angioplasty of peripheral vessel (Resolved) Problem with dialysis access (Resolved) Flank pain (Resolved) Abdominal pain (Resolved) Metabolic acidosis (Resolved) #1 right upper and right lower lobe community-acquired pneumonia-suspect gram- positive bacterial, patient will be admitted to [facility] 3, he will have aerosol treatments administered, IV Levaquin will be administered, sputum culture will be obtained, respiratory panel will be obtained #2 acute exacerbation of chronic obstructive pulmonary disease-IV Solu-Medrol will be administered #3 end-stage renal disease-nephrology will participate in his care, patient will have dialysis tomorrow #4 chronic alcohol intake #5 hyponatremia #6 hyperlipidemia #7 hypertension #8 anemia of chronic kidney disease Code Visit Inpatient E&M: 59431 Init Hosp L3
[2018-07-28 01:33] VITALS: PULSE 74; RESP 18
[2018-07-28] MEDS: Ipratropium/Albuterol Sulfate 3 ML AMPUL.NEB INHALATION ×2 (01:33→07:23)
[2018-07-28 04:47] VITALS: BP 162/79; PULSE 74; RESP 18; TEMP 36.5; O2SAT 99
--- NOTE | 2018-07-28 05:59 | RAD_ITS ---
STUDY: X-RAY CHEST REASON FOR EXAM: Male, 62 years old. Shortness of breath and cough. History of pneumonia. TECHNIQUE: PA and lateral views of the chest. COMPARISON: Comparison is made with prior study dated January 24, 2019. FINDINGS: Stable pleural parenchymal changes at the left lung base. Since prior study, there has been improved aeration of the infiltrates in the right upper and right middle lobes. There is no demonstrated pleural abnormality. Normal size heart. Normal mediastinum and ania. Normal visualized pulmonary arteries. Normal visualized aortic arch and descending thoracic aorta. There are diffuse degenerative changes of the visualized thoracic spine. Normal visualized ribs, clavicles, and shoulders. There is no demonstrated abnormality of the visualized soft tissue structures of the upper abdomen. RAD/Chest PA and Lateral IMPRESSION: Improved aeration of the infiltrates in the right upper and right middle lobes. Electronically Signed: Ronald Johnson MD at 15:06 EST Tel [phone], Service support ,
[2018-07-28] MEDS: 0.9% NaCl Peripheral Flush Adult/Peds IV ×2 (06:06→14:05)
[2018-07-28 07:23] VITALS: PULSE 79; RESP 18; O2SAT 97
[2018-07-28 09:00] VITALS: BP 117/57; PULSE 79; RESP 18; TEMP 36.8; O2SAT 97
[2018-07-28 09:14] VITALS: BP 117/57; PULSE 72; RESP 18; TEMP 36.8; O2SAT 98
--- NOTE | 2018-07-28 09:19 | PCM.PN.REN ---
Patient Problems: Active and Suspected Problems (Last Updated 07/27/18 @ 18:48 by Ronal Guillen, DO) Nonproductive cough (Acute) Shortness of breath (Acute) Hyponatremia (Acute) Pneumonia (Acute) Subjective: BREATHING BETTER, STILL WHEEZING. SEEN ON DIALYSIS. ATTEMPT 1-2L FLUID REMOVAL - Physical Exam General: Alert, Oriented x3, Cooperative, No apparent distress Lungs: Wheezes - RT LUNG Cardiovascular: Regular rate Extremities: No edema Skin: No rashes Psych/Mental Status: Alert and oriented to time, place, person, mood and affect Vital Signs Temp Pulse Resp BP Pulse Ox 98.3 F 72 18 117/57 L 98 07/28/18 09:14 07/28/18 09:14 07/28/18 09:14 07/28/18 09:14 07/28/18 09:14 Oxygen Delivery Method Room Air Weight: 85.6 kg Body Mass Index (BMI) 28.7 Intake and Output for Last 24 Hours 07/26/18 07/27/18 07/28/18 23:59 23:59 23:59 Intake Total 400 / 400 400 / 400 Output Total 250 / 250 Balance 150 / 150 400 / 400 Microbiology Past 72 Hours 07/27/18 15:15 Streptococcus pneumoniae Antigen (M - Final Urine, Clean Catch 07/27/18 15:15 Legionella Antigen - Final Urine, Clean Catch 07/27/18 11:11 Respiratory Panel (PCR) - Final Mucosa - Nasopharyngeal 07/27/18 11:12 Influenza Types A,B Direct FA (ANTHONY) - Final Mucosa - Nasopharyngeal Laboratory Tests Past 24 Hrs 07/27/18 07/27/18 07/27/18 09:22 09:22 09:22 WBC 9.5 RBC 2.93 L Hgb 10.4 L Hct 30.1 L MCV 102.7 H MCH 35.5 H MCHC 34.6 RDW 13.3 RDW Differential 50.4 H Plt Count 163 MPV 10.2 Immature Gran % (Auto) 0.100 Neut % (Auto) 78.8 H Lymph % (Auto) 10.9 L [place] % (Auto) 8.8 Eos % (Auto) 1.2 Baso % (Auto) 0.2 Absolute Neuts (auto) 7.5 Absolute Lymphs (auto) 1.03 Total Counted Not Reportable Sodium 125 L Potassium 4.5 Chloride 91 L Carbon Dioxide 22.0 Anion Gap 12 BUN 30 H Creatinine 5.06 H Estim Creat Clear Calc 15.02 Est GFR (MDRD) Af Amer 15 L Est GFR (MDRD) Non-Af 12 L BUN/Creatinine Ratio 5.9 L Glucose 105 Lactic Acid 1.6 Calcium 8.9 Medical Necessity - Tobacco Use Smoking Status: Current every day smoker Tobacco Use: Cigarettes Assessment/Plan All Active Problems (Last Updated 07/27/18 @ 18:48 by Ronal Guillen DO) Nonproductive cough (Acute) Shortness of breath (Acute) Hyponatremia (Acute) Pneumonia (Acute) History of angioplasty of peripheral vessel (Resolved) Problem with dialysis access (Resolved) Flank pain (Resolved) Abdominal pain (Resolved) Metabolic acidosis (Resolved) 1. ESRD due to PCKD HD TTS. Seen on dialysis. 2. Pneumonia 3. hyponatremia sodium low likely due to alcoholism 4. HTN stable 5. Alcoholism 6. COPD tobacco use.
--- NOTE | 2018-07-28 10:02 | DIALYSIS ---
Hep B sab (positive 149) 05/26/18 Report form primary RNKandice Access: left upper arm AVF. Site benign, thrill and bruit present, cannulated with 15 gauge needles x 2 without difficulty.
[2018-07-28] MEDS: Folic Acid/Vitamin B Comp W-C 1 Capsule 1 CAP PO (12:21)
[2018-07-28] MEDS: Tamsulosin HCl 0.4 MG Capsule PO (12:21)
[2018-07-28] MEDS: DiphenhydrAMINE 25 MG Capsule PO (12:21)
--- NOTE | 2018-07-28 12:28 | CASEMGMT ---
RN CM Assessment Intro role of CM to patient in room. Pt presented with shortness of breath, cough, productive. Hx of ESRD, ETOH abuse, Tobacco abuse. PCP: Dr. Doron Recio [facility] Prescription coverage: yes Living arrangements: Lives independently. DME: cane, uses intermittently Dialysis: [facility] @ 6 am Transportation: pt drives self to dialysis. DC PLAN: home on dc
[2018-07-28 13:30] VITALS: BP 116/62; PULSE 80; RESP 22; TEMP 36.9
--- NOTE | 2018-07-28 13:45 | DIALYSIS ---
Hemodialysis treatment complete. 3 hour run. 3k bath. Net fluid removed = 1600 ml. Patient tolerated HD tx fairly well. Patient given Benadryl for itching. At end of HD tx patient states he is itching less. Left upper arm AVFP: site benign, thrill and bruit present, needle site pressure held 10 min venous and 15 min arterial. Hemostasis achieved. Report given to primary RNJessy
--- NOTE | 2018-07-28 13:45 | PCM.DC ---
- Discharge Diagnoses Current Active Problems: Current Active and Chronic Problems (Last Updated 07/27/18 @ 18:48 by Ronal Guillen DO) Nonproductive cough (Acute) Shortness of breath (Acute) Hyponatremia (Acute) Pneumonia (Acute) ESRD (end stage renal disease) on dialysis (Chronic) Benign hypertension (Chronic) Current drinker of alcohol (Chronic) Tobacco user (Chronic) PKD (polycystic kidney disease) (Chronic) You will use the following diet at home:: No restrictions Your food should be the consistency of: Regular Your liquids should be the consistency of: Regular/Thin Discharge Activity: Return to Normal Activity Weight Bearing Status: Full weight bearing Additional Instructions: Cut down smoking, stop smoking. Get another chest x-ray done in 10-14 days-see your physician to get an order Allergies/Adverse Reactions: Allergies Penicillins Allergy (Verified 07/27/18 08:56) Unknown Medications to take at Discharge Atenolol [Tenormin] 25 mg PO DINNER 05/09/17 Lovastatin [Mevacor] 40 mg PO DAILY 05/09/17 Sevelamer Carbonate [Renvela] 3,200 mg PO DINNER 05/09/17 Tamsulosin HCl [Flomax] 0.4 mg PO DAILY 05/09/17 Citalopram [Celexa] 20 mg PO QHS 07/27/18 Folic Acid/Vitamin B Comp W-C [Nephrocaps, Renaphro] 1 capsule PO DAILY 07/27/18 Citalopram [Celexa] 20 mg PO QHS tablet 07/28/18 DiphenhydrAMINE [Benadryl] 25 mg PO Q6H PRN PRN capsule 07/28/18 Doxycycline Calcium [Vibramycin] 100 mg PO BID #12 ml 07/28/18 Ipratropium/Albuterol Sulfate [Duoneb] 3 ml INHALATION [id number] #120 ampul.neb 07/28/18 Prednisone 10 mg PO UD #30 tab 07/28/18 The following prescriptions were given: Prednisone 10 mg PO UD #30 tab Doxycycline Calcium [Vibramycin] 100 mg PO BID #12 ml Ipratropium/Albuterol Sulfate [Duoneb] 3 ml INHALATION [id number] #120 ampul.[facility] Primary Care Physician: Doron Recio MD [Primary Care Provider] - Please follow up with your Primary Care Physician in: in 10-14 days Test Results: Test results from this visit will be discussed in further detail at your follow-up appointment, if applicable.
--- NOTE | 2018-07-28 14:33 | CASEMGMT ---
Social Work Note SW placed a call to pt's CM Sri Chapman at [facility] and left her a message that pt is discharging home today. Breanna Mcfadden TECHNICAL EXPERT, [employer] STRAIGHTENER
--- NOTE | 2018-07-29 16:08 | CASEMGMT ---
TEZ JANSEN Discharge Follow-up Phone Call: ADILENEErasmo: Dolly Strata: 3 Call Date: 07/29/18 Discharge Date: 07/28/18 Time of Call: 1605 Duration: 1 min Admitting Diagnosis: Pneumonia TEZ JANSEN completed follow-up phone call after recent hospitalization. Patient states that he is doing well and feeling better than he was. Patient had no questions or concerns with discharge instructions. Patient states he was able to fill prescriptions without any issues. Patient states that he had his follow-up appts scheduled.
--- NOTE | 2018-07-29 20:41 | PCM.DC.SUM ---
Discharge Date and Diagnosis Date of Admission: 07/27/18 Date of Discharge: 07/28/18 - Primary Discharge Diagnosis #1 right upper and right lower lobe community-acquired pneumonia-suspect gram-positive bacterial #2 acute exacerbation of chronic obstructive pulmonary disease #3 end-stage renal disease requiring dialysis #4 chronic daily alcohol intake #5 hyponatremia #6 hyperlipidemia #7 hypertension #8 anemia of chronic kidney disease - Secondary Discharge Diagnosis Chronic Problems (Last Updated 07/27/18 @ 18:48 by Ronal Guillen DO) ESRD (end stage renal disease) on dialysis (Chronic) Surgically constructed arteriovenous fistula (Chronic) Benign hypertension (Chronic) Current drinker of alcohol (Chronic) Dyslipidemia (Chronic) Tobacco user (Chronic) PKD (polycystic kidney disease) (Chronic) CKD (chronic kidney disease), stage III (Chronic) COPD (chronic obstructive pulmonary disease) (Chronic) CKD (chronic kidney disease) (Chronic) ESRD (end stage renal disease) (Chronic) Hospital Course and Treatment Operations: None Procedures: Dialysis Summary of Care Provided: The patient is a 62 year old M was seen in the emergency room at [facility] with chief complaint of cough and shortness of breath. Workup in the emergency room included a chest x-ray which showed an infiltrate in the right upper lobe, right lower lobe, and superior segment of the right lower lobe. Patient's white blood cell count was normal, hemoglobin was low at 10.4, chemistry profile showed a sodium of 125, creatinine of 5.06, BUN of 30. Patient's pulse ox on room air was 95%. On examination, patient had coarse expiratory wheezes over both lungs. Patient was admitted to [place] [address] for community-acquired pneumonia and exacerbation of COPD, he was placed on IV Solu-Medrol, aggressive aerosol treatments, and IV antibiotics. He was seen in consultation by nephrology and underwent dialysis during his hospital stay. On 07/28/18, patient was seen and examined: On examination he appeared in good health and spirits. Vital signs as documented. Skin warm and dry and without overt rashes. Neck without JVD. Lungs-scattered expiratory wheezes were noted bilaterally. Heart exam notable for regular rhythm, normal sounds and absence of murmurs, rubs or gallops. Abdomen unremarkable and without evidence of organomegaly, masses, or abdominal aortic enlargement. Extremities nonedematous. Neuro: Cranial nerves II through XII are grossly intact, no focal motor deficits were noted, sensation to light touch and pinprick intact. Psych: Patient is alert and oriented x3, he does not appear anxious or depressed On 07/28/18, patient was seen and examined and felt to be in stable condition for discharge home - Physical Exam Vital Signs Temp Pulse Resp BP Pulse Ox 98.4 F 80 22 H 116/62 98 07/28/18 13:30 07/28/18 13:30 07/28/18 13:30 07/28/18 13:30 07/28/18 09:14 Oxygen Delivery Method Room Air Weight: 85.6 kg Body Mass Index (BMI) 28.7 Intake and Output for Last 24 Hours 07/27/18 07/28/18 07/29/18 23:59 23:59 23:59 Intake Total 400 / 400 400 / 400 Output Total 250 / 250 1600 / 1600 Balance 150 / 150 -1200 / -1200 Microbiology Past 72 Hours 07/27/18 10:45 Blood Culture - Preliminary Blood Culture (Wb) #2 - Right Hand No growth in 48 hours. 07/27/18 09:22 Blood Culture - Preliminary Blood Culture (Wb) - Anticubital Right No growth in 48 hours. 07/27/18 15:15 Streptococcus pneumoniae Antigen (M - Final Urine, Clean Catch 07/27/18 15:15 Legionella Antigen - Final Urine, Clean Catch 07/27/18 11:11 Respiratory Panel (PCR) - Final Mucosa - Nasopharyngeal 07/27/18 11:12 Influenza Types A,B Direct FA (ANTHONY) - Final Mucosa - Nasopharyngeal Discharge Activity: Return to Normal Activity Weight Bearing Status: Full weight bearing Home Medications: Medications to take at Discharge Atenolol [Tenormin] 25 mg PO DINNER 05/09/17 Lovastatin [Mevacor] 40 mg PO DAILY 05/09/17 Sevelamer Carbonate [Renvela] 3,200 mg PO DINNER 05/09/17 Tamsulosin HCl [Flomax] 0.4 mg PO DAILY 05/09/17 Citalopram [Celexa] 20 mg PO QHS 07/27/18 Folic Acid/Vitamin B Comp W-C [Nephrocaps, Renaphro] 1 capsule PO DAILY 07/27/18 Citalopram [Celexa] 20 mg PO QHS tablet 07/28/18 DiphenhydrAMINE [Benadryl] 25 mg PO Q6H PRN PRN capsule 07/28/18 Doxycycline Calcium [Vibramycin] 100 mg PO BID #12 ml 07/28/18 Ipratropium/Albuterol Sulfate [Duoneb] 3 ml INHALATION [id number] #120 ampul.neb 07/28/18 Prednisone 10 mg PO UD #30 tab 07/28/18 Following Prescrptions Were Given to Patient: Prednisone 10 mg PO UD #30 tab Doxycycline Calcium [Vibramycin] 100 mg PO BID #12 ml Ipratropium/Albuterol Sulfate [Duoneb] 3 ml INHALATION [id number] #120 ampul.[facility] Primary Care Physician: Doron Recio MD [Primary Care Provider] - Please follow up with your Primary Care Physician in: in 10-14 days Please Follow Up With: Doron Recio MD Disposition: Home Minutes spent on discharge:: 32 Patient Condition:: Stable Medical Necessity - Tobacco Use Smoking Status: Current every day smoker Tobacco Use: Cigarettes Meaningful Use Info Meaningful Use Diagnoses (Choose all that apply): None applicable Code Visit Inpatient E&M: 29583 Disch Hosp
--- NOTE | 2018-07-29 20:45 | DS.PCM_ITS ---
Discharge Date and Diagnosis Date of Admission: 07/27/18 Date of Discharge: 07/28/18 - Primary Discharge Diagnosis #1 right upper and right lower lobe community-acquired pneumonia-suspect gram- positive bacterial #2 acute exacerbation of chronic obstructive pulmonary disease #3 end-stage renal disease requiring dialysis #4 chronic daily alcohol intake #5 hyponatremia #6 hyperlipidemia #7 hypertension #8 anemia of chronic kidney disease - Secondary Discharge Diagnosis Chronic Problems (Last Updated 07/27/18 @ 18:48 by Ronal Guillen DO) ESRD (end stage renal disease) on dialysis (Chronic) Surgically constructed arteriovenous fistula (Chronic) Benign hypertension (Chronic) Current drinker of alcohol (Chronic) Dyslipidemia (Chronic) Tobacco user (Chronic) PKD (polycystic kidney disease) (Chronic) CKD (chronic kidney disease), stage III (Chronic) COPD (chronic obstructive pulmonary disease) (Chronic) CKD (chronic kidney disease) (Chronic) ESRD (end stage renal disease) (Chronic) Hospital Course and Treatment Operations: None Procedures: Dialysis Summary of Care Provided: The patient is a 62 year old M was seen in the emergency room at [facility] with chief complaint of cough and shortness of breath. Workup in the emergency room included a chest x-ray which showed an infiltrate in the right upper lobe, right lower lobe, and superior segment of the right lower lobe. Patient's white blood cell count was normal, hemoglobin was low at 10.4, chemistry profile showed a sodium of 125, creatinine of 5.06, BUN of 30. Patient's pulse ox on room air was 95%. On examination, patient had coarse expiratory wheezes over both lungs. Patient was admitted to [place] [address] for community-acquired pneumonia and exacerbation of COPD, he was placed on IV Solu- Medrol, aggressive aerosol treatments, and IV antibiotics. He was seen in consultation by nephrology and underwent dialysis during his hospital stay. On 07/28/18, patient was seen and examined: On examination he appeared in good health and spirits. Vital signs as documented. Skin warm and dry and without overt rashes. Neck without JVD. Lungs-scattered expiratory wheezes were noted bilaterally. Heart exam notable for regular rhythm, normal sounds and absence of murmurs, rubs or gallops. Abdomen unremarkable and without evidence of organomegaly, masses, or abdominal aortic enlargement. Extremities nonedematous. Neuro: Cranial nerves II through XII are grossly intact, no focal motor deficits were noted, sensation to light touch and pinprick intact. Psych: Patient is alert and oriented x3, he does not appear anxious or depressed On 07/28/18, patient was seen and examined and felt to be in stable condition for discharge home - Physical Exam Vital Signs Temp Pulse Resp BP Pulse Ox 98.4 F 80 22 H 116/62 98 07/28/18 13:30 07/28/18 13:30 07/28/18 13:30 07/28/18 13:30 07/28/18 09:14 Oxygen Delivery Method Room Air Weight: 85.6 kg Body Mass Index (BMI) 28.7 Intake and Output for Last 24 Hours 07/27/18 07/28/18 07/29/18 23:59 23:59 23:59 Intake Total 400 / 400 400 / 400 Output Total 250 / 250 1600 / 1600 Balance 150 / 150 -1200 / -1200 Microbiology Past 72 Hours 07/27/18 10:45 Blood Culture - Preliminary Blood Culture (Wb) #2 - Right Hand No growth in 48 hours. 07/27/18 09:22 Blood Culture - Preliminary Blood Culture (Wb) - Anticubital Right No growth in 48 hours. 07/27/18 15:15 Streptococcus pneumoniae Antigen (M - Final Urine, Clean Catch 07/27/18 15:15 Legionella Antigen - Final Urine, Clean Catch 07/27/18 11:11 Respiratory Panel (PCR) - Final Mucosa - Nasopharyngeal 07/27/18 11:12 Influenza Types A,B Direct FA (ANTHONY) - Final Mucosa - Nasopharyngeal Discharge Activity: Return to Normal Activity Weight Bearing Status: Full weight bearing Home Medications: Medications to take at Discharge Atenolol [Tenormin] 25 mg PO DINNER 05/09/17 Lovastatin [Mevacor] 40 mg PO DAILY 05/09/17 Sevelamer Carbonate [Renvela] 3,200 mg PO DINNER 05/09/17 Tamsulosin HCl [Flomax] 0.4 mg PO DAILY 05/09/17 Citalopram [Celexa] 20 mg PO QHS 07/27/18 Folic Acid/Vitamin B Comp W-C [Nephrocaps, Renaphro] 1 capsule PO DAILY 07/27/18 Citalopram [Celexa] 20 mg PO QHS tablet 07/28/18 DiphenhydrAMINE [Benadryl] 25 mg PO Q6H PRN PRN capsule 07/28/18 Doxycycline Calcium [Vibramycin] 100 mg PO BID #12 ml 07/28/18 Ipratropium/Albuterol Sulfate [Duoneb] 3 ml INHALATION [id number] #120 ampul.neb 07/28/18 Prednisone 10 mg PO UD #30 tab 07/28/18 Following Prescrptions Were Given to Patient: Prednisone 10 mg PO UD #30 tab Doxycycline Calcium [Vibramycin] 100 mg PO BID #12 ml Ipratropium/Albuterol Sulfate [Duoneb] 3 ml INHALATION [id number] #120 ampul.[facility] Primary Care Physician: Doron Recio MD [Primary Care Provider] - Please follow up with your Primary Care Physician in: in 10-14 days Please Follow Up With: Doron Recio MD Disposition: Home Minutes spent on discharge:: 32 Patient Condition:: Stable Medical Necessity - Tobacco Use Smoking Status: Current every day smoker Tobacco Use: Cigarettes Meaningful Use Info Meaningful Use Diagnoses (Choose all that apply): None applicable Code Visit Inpatient E&M: 63545 Disch Hosp
== END 2018-07-28 14:15 | disposition home or self-care (01) | DRG 193 ==
LOC: ED 09:42 → MS3 12:18
PROVIDERS: Admitting Provider Internal Medicine; Emergency Provider Emergency Medicine; Family Provider Family Medicine; PCP Family Medicine; Visit Provider Internal Medicine
DX: J15.9 Unspecified bacterial pneumonia (principal); N18.6 End stage renal disease; J44.1 Chronic obstructive pulmonary disease with (acute) exacerbation; E87.1 Hypo-osmolality and hyponatremia; J44.0 Chronic obstructive pulmonary disease with (acute) lower respiratory infection; I12.0 Hypertensive chronic kidney disease with stage 5 chronic kidney disease or end stage renal disease; E78.5 Hyperlipidemia, unspecified; D63.1 Anemia in chronic kidney disease; Z99.2 Dependence on renal dialysis; Z79.899 Other long term (current) drug therapy; F17.210 Nicotine dependence, cigarettes, uncomplicated; F10.20 Alcohol dependence, uncomplicated
CPT/HCPCS: 71046; 80048; 83605; 85025; 87040; 87449; 87633; 87804; 90937; 94640; 97802; 99282; 99406; A4216; G0257

== ENCOUNTER 2018-09-01 13:55 | Emergency (ER) | payer MEDICARE, SELFPAY ==
[2018-08-12 08:36] VITALS: BMI 28.2
[2018-09-01] VITALS (8 sets, daily range): BP systolic 118–128; BP diastolic 70–75; PULSE 104–119; RESP 15–22; TEMP 37.1–37.6; O2SAT 94–96; BMI 27.3
--- NOTE | 2018-09-01 14:30 | RAD_ITS ---
STUDY: X-RAY CHEST REASON FOR EXAM: Male, 63 years old. 3 day history of shortness of breath and flulike symptoms. TECHNIQUE: PA and lateral views of the chest. COMPARISON: Comparison is made with prior study dated July 28, 2018. FINDINGS: EKG electrodes are seen. Hyperinflation. Stable pleural parenchymal changes at the left lung base. There is no demonstrated pleural abnormality. Normal size heart. Normal mediastinum and ania. Normal visualized pulmonary arteries. There is atherosclerotic calcification of the aortic arch with tortuosity. There are mild degenerative changes of the visualized thoracic spine. Normal visualized ribs, clavicles, and shoulders. There is no demonstrated abnormality of the visualized soft tissue structures of the upper abdomen. RAD/Chest PA and Lateral IMPRESSION: Hyperinflation. Stable pleural parenchymal changes at the left lung base. Electronically Signed: Ronald Johnson MD at 15:45 EST , Service support ,
--- NOTE | 2018-09-01 14:30 | EKG12_ITS ---
Test Reason : SOB Blood Pressure : / mmHG Vent. Rate : 106 BPM Atrial Rate : 106 BPM P-R Int : 168 ms QRS Dur : 090 ms QT Int : 382 ms P-R-T Axes : 050 031 067 degrees QTc Int : 507 ms Sinus tachycardia Nonspecific ST abnormality Abnormal ECG Confirmed by MARIA DOLORES CERVANTES, ALEJA ([id number]), industrial editor BENTON CONRAD ([id number] on 09/03/2018 1:25:06 PM Referred By: CORI Confirmed By:ALEJA WHITTEN MD
--- NOTE | 2018-09-01 14:32 | ED.VISSUMM ---
- ER Visit Summary Date of Service: 09/01/18 Chief Complaint: Feel sick History of Present Illness: The patient is a 63 M who presents for 3 days of feeling sick. Patient states he is having a fever, sweats, any nose, cough productive of clear sputum, shortness of breath, nausea and a headache this morning that is since resolved. Patient had dialysis today and did not finish it because he did not feel well. He had 2-1/2 hours out of 3 hours. He gets hemodialysis Friday and Friday. Patient states he did get the flu shot this year. He took Tylenol without any relief this morning. Patient also has history of hypertension, hypercholesterolemia, COPD and is a smoker. Patient was recently admitted for pneumonia. Physical Examination: Vital signs: afebrile, tachycardic, normotensive, no hypoxia on room air General: well nourished, well developed, in no distress Skin: warm, dry, no rash, no pallor HEENT: normocephalic and atraumatic; PERRL, EOMI, moist mucous membranes Cardiovascular: Tachycardic rate and rhythm without murmurs, no peripheral edema, 2+ pulses all distal extremities Respiratory: Tachypnea with mild increased work of breathing, rhonchi noted in the right upper and lower tee, wheezing noted in the left upper and lower tee Abdominal: Abdomen is soft, nontender with normoactive bowel sounds, no guarding or rebound, no masses MSK: Moves all extremities, no deformities, normal strength Neuro: Awake and alert, oriented ?4. No facial droop, sensation and motor function intact and symmetric Test Results: Abnormal Lab Results 09/01/18 09/01/18 09/01/18 14:25 14:25 14:25 WBC 4.5 RBC 2.88 L Hgb 10.6 L Hct 30.6 L MCV 106.3 H MCH 36.8 H MCHC 34.6 RDW 14.0 RDW Differential 52.6 H Plt Count 184 MPV 9.2 Immature Gran % (Auto) 0.200 Neut % (Auto) 68.7 Lymph % (Auto) 9.8 L [place] % (Auto) 19.5 H Eos % (Auto) 0.9 Baso % (Auto) 0.9 Absolute Neuts (auto) 3.1 Absolute Lymphs (auto) 0.44 L Total Counted Not Reportable Differential Comment SCANNED PT Cancelled INR Cancelled APTT Cancelled Sodium 131 L Potassium 3.1 L Chloride 95 L Carbon Dioxide 21.0 Anion Gap 15 BUN 15 Creatinine 3.49 H Estim Creat Clear Calc 22.23 Est GFR (MDRD) Af Amer 23 L Est GFR (MDRD) Non-Af 19 L BUN/Creatinine Ratio 4.3 L Glucose 125 H Lactic Acid Calcium 7.8 L Total Bilirubin 0.20 AST 23 ALT 26 Alkaline Phosphatase 80 Total Protein 6.7 Albumin 3.2 Globulin 3.5 Albumin/Globulin Ratio 0.9 Urine Color Urine Clarity Urine pH Ur Specific [place] Urine Protein Urine Glucose (UA) Urine Ketones Urine Occult Blood Urine Nitrite Urine Bilirubin Urine Urobilinogen Ur Leukocyte Esterase Urine RBC Urine WBC Ur Squamous Epith Cells Urine Bacteria Urine Mucus 09/01/18 09/01/18 09/01/18 14:25 14:57 15:25 WBC RBC Hgb Hct MCV MCH MCHC RDW RDW Differential Plt Count MPV Immature Gran % (Auto) Neut % (Auto) Lymph % (Auto) [place] % (Auto) Eos % (Auto) Baso % (Auto) Absolute Neuts (auto) Absolute Lymphs (auto) Total Counted Differential Comment PT 12.5 INR 0.9 APTT 31.4 Sodium Potassium Chloride Carbon Dioxide Anion Gap BUN Creatinine Estim Creat Clear Calc Est GFR (MDRD) Af Amer Est GFR (MDRD) Non-Af BUN/Creatinine Ratio Glucose Lactic Acid 2.5 H Calcium Total Bilirubin AST ALT Alkaline Phosphatase Total Protein Albumin Globulin Albumin/Globulin Ratio Urine Color Yellow Urine Clarity Clear Urine pH 8.0 Ur Specific [place] 1.010 Urine Protein 100 H Urine Glucose (UA) 100 H Urine Ketones Negative Urine Occult Blood 25 H Urine Nitrite Negative Urine Bilirubin Negative Urine Urobilinogen Normal Ur Leukocyte Esterase 100 H Urine RBC 0 SEEN Urine WBC 5-10 SEEN Ur Squamous Epith Cells 0 SEEN Urine Bacteria 0 SEEN Urine Mucus 0 SEEN Clinical Impression(s) from Imaging Studies Chest X-Ray 09/01/18 14:30 IMPRESSION: Hyperinflation. Stable pleural parenchymal changes at the left lung base. Electronically Signed: Ronald Johnson MD at 15:45 EST , Service support , Medications Given Discontinued Medications Acetaminophen (Tylenol) 650 mg PO X1 ONE Stop: 09/01/18 14:31 Last Admin: 09/01/18 14:53 Dose: 650 mg Albuterol Sulfate (Ventolin Aerosols) 2.5 mg INHALATION Q20M BIRDIE Stop: 09/01/18 15:11 Last Admin: 09/01/18 14:53 Dose: 2.5 mg Admin: 09/01/18 14:46 Dose: 2.5 mg Admin: 09/01/18 14:46 Dose: 2.5 mg Albuterol/Ipratropium (Duoneb) 3 ml INHALATION X1 ONE Stop: 09/01/18 14:31 Last Admin: 09/01/18 14:45 Dose: 3 ml Oseltamivir Phosphate (Tamiflu) 30 mg PO X1 ONE Stop: 09/01/18 15:17 Last Admin: 09/01/18 16:12 Dose: 30 mg Prednisone () 40 mg PO X1 ONE Stop: 09/01/18 14:31 Last Admin: 09/01/18 14:53 Dose: 40 mg Emergency Department Course and Treatment: Patient presents feeling unwell with respiratory symptoms. He was given breathing treatments due to the wheezing and his history of COPD. Patient was given Tylenol for discomfort. Influenza A positive. Patient had no leukocytosis. Lactate elevated at 2.5, which may be related to patient's infection or may be secondary to patient's end-stage renal disease. Creatinine consistent with end-stage renal disease. Patient had mild hyponatremia and hypokalemia of 131 and 3.1. Because patient is a dialysis patient, no electrolyte repletion performed. Patient was given Tamiflu at renal dosing of 30 mg once. On reevaluation after receiving the breathing treatments, patient stated he was feeling better and was breathing easier. Patient's wheezing had resolved. Chest x-ray showed no sign of infiltrates or volume overload. Patient feels well and wants to try outpatient management. He was given a prescription for Tamiflu, despite his symptoms being present for 3 days. He is a good candidate for Tamiflu treatment because of his multiple comorbidities. He was also given a prescription for prednisone due to the COPD exacerbation. Patient has no findings concerning for bacterial infection at this time and thus antibiotics not prescribed. Patient will use Tylenol as needed for fever and discomfort. He is to return if he has any concerns. Treatment Plan: [] Disposition: [] Impression: Influenza A, ESRD on hemodialysis, COPD This note was generated with [employer] dictation software. It may contain incorrect words, spelling, and punctuation that were not noted in review of the chart prior to signing ED Disposition - Plan for ED Patient: Disposition: Home or Assisted Living Instructions: ED Flu, ED COPD Flare Prescriptions: Oseltamivir Phosphate [Tamiflu] 30 mg PO DAILY #4 cap Prednisone [Deltasone] 40 mg PO DAILY #8 tab MDD Take first dose on 09/02/18. Referrals: Doron Recio MD [Primary Care Provider] - 1-2 Days if not improving Additional Instructions: You have the flu. You were given your first dose of Tamiflu in the emergency department. Please start the prescription tomorrow and take 1 dose daily for 4 days. This is a dosing specific for your kidney failure. Use Tylenol as needed for fever and discomfort. Usual breathing treatments as needed for wheezing and shortness of breath. Vital signs noted return if you have any worsening of your symptoms or any new Return if you have any worsening of your symptoms or any new concerning symptoms. Please keep your dialysis appointment in 2 days.
[2018-09-01 14:41] LABS: Absolute Lymphocyte Count 0.44 X10^3/ul (0.83-4.51); Absolute Neutrophil Count 3.1 X10^3/uL (2.0-7.7); Basophil# 0.04 X10^3/uL; Basophil% 0.9 % (0-1); Eosinophil# 0.04 X10^3/uL; Eosinophils% 0.9 % (0-5); Hematocrit 30.6 % (40-54); Hemoglobin 10.6 g/dl (13.0-16.5); Lymphocyte # 0.44 X10^3/ul (4.0); Lymphocyte % 9.8 % (19-41); Mean Corp Hgb Conc 34.6 g/gl (32-36); Mean Corpuscular Hgb 36.8 pg (27.0-32.0); Mean Corpuscular Volume 106.3 fL (80-94); Mean Platelet Vol. 9.2 fl (6.2-12.0); Monocyte# 0.87 X10^3/uL; Monocyte% 19.5 % (0-10); Neutrophil # 3.07 X10^3/uL (2.7-7.7); Neutrophil % 68.7 % (47-70); Platelet Count 184 K/mm3 (150-450); RBC Distribution Width SD 52.6 fl (35.1-43.9); Red Blood Count 2.88 M/mm3 (4.6-6.2); White Blood Count 4.5 K/mm3 (4.4-11.0)
[2018-09-01 14:43] LABS: Differential Indicated SCAN CRITERIA MET; POSITIVE COUNT NO; POSITIVE DIFFERENTIAL YES; POSITIVE MORPHOLOGY NO
[2018-09-01] MEDS: Ipratropium/Albuterol Sulfate 3 ML AMPUL.NEB INHALATION (14:45)
[2018-09-01] MEDS: Albuterol 2.5 MG/3 ML VIAL.NEB. INHALATION ×3 (14:46→14:53)
[2018-09-01 14:51] LABS: ALB/GLOB Ratio 0.9 RATIO (0.9-2.4); AST(SGOT) 23 U/L (15-37); Alanine Aminotransfer ALT/SGPT 26 U/L (16-61); Albumin, Serum 3.2 g/dL (3.2-5.0); Alkaline Phosphatase 80 U/L (45-117); Anion Gap 15 (5-15); BUN 15 mg/dL (7-18); BUN/Creat Ratio 4.3 RATIO (10-20); Calcium,Total 7.8 mg/dL (8.5-10.1); Chloride 95 mmol/L (98-107); Creatinine, Serum 3.49 mg/dL (0.70-1.30); EST Glomerular Filtration Rate 19 mL/min (>60); Est Glom Filt Rate - Afr Amer 23 mL/min (>60); Estimated Creatinine Clearance 22.23 ml/min; Globulin 3.5 g/dL (2.2-4.2); Glucose 125 mg/dL (74-106); Potassium 3.1 mmol/L (3.5-5.1); Protein, Total 6.7 g/dL (6.4-8.2); Sodium Level 131 mmol/L (136-145)
[2018-09-01] MEDS: Acetaminophen 325 MG Tablet 650 MG PO (14:53)
[2018-09-01] MEDS: predniSONE 20 MG Tablet 40 MG PO (14:53)
[2018-09-01 14:56] LABS: Differential Comment SCANNED
[2018-09-01 15:01] LABS: Lactic Acid 2.5 mmol/L (0.4-2.0)
--- NOTE | 2018-09-01 15:09 | ED.RN ---
pos flu a called from the lab. dr lamar aware
--- NOTE | 2018-09-01 15:10 | ED.RN ---
lactic 2.8. aware.
[2018-09-01 15:31] LABS: International Normalized Ratio 0.9; Prothrombin Time (Protime)PT. 12.5 SECONDS (11.7-14.9)
[2018-09-01 15:31] LABS: Bacteria 0 SEEN /hpf (None Seen); Mucous, Urine 0 SEEN /hpf (<or=2+); Red Blood Cells-Urine 0 SEEN /hpf (0-5); Squamous Epithelial Cells - UA 0 SEEN /hpf (0-5)
[2018-09-01 15:32] LABS: Partial Thromboplast Time 31.4 Seconds (24.1-36.2)
[2018-09-01 15:44] LABS: Color, Urine Yellow (Yellow); Glucose, Dipstick 100 mg/dl (Normal); Ketone-Dipstick Negative (Negative); Leukocyte Esterase-Dipstick 100 /ul (Negative); Nitrite-Dipstick Negative (Negative); Occult Blood-Urine 25 /ul (Negative); Protein-Dipstick 100 mg/dl (Negative); Urine Bilirubin Dipstick Negative (Negative); Urine Clarity Clear (Clear); Urine Urobilinogen Normal (Normal)
[2018-09-01 15:52] LABS: White Blood Cells 5-10 SEEN /hpf (0-5)
[2018-09-01] MEDS: Oseltamivir Phosphate 30 MG Capsule PO (16:12)
--- NOTE | 2018-09-01 16:26 | ED.RN ---
PT GIVEN WRITTEN AND VERBAL DISCHARGE INSTRUCTIONS AND HOME GOING PRESCRIPTIONS. PT VERBALIZES UNDERSTANDING AND DENIES ANY FURTHER QUESTIONS. PT IV D/C AND COVERED WITH 2X2 GAUZE A PAPER TAPE. PRESSURE APPLIED TO SITE FOR 1 MINUTE. PT DRESSES SELF. WHEELED TO MAIN ENTRANCE BY SECURITY TO RETRIEVE CAR.
[2018-09-01 18:33] LABS: Reflex Lactate? Y
== END 2018-09-01 16:28 | disposition home or self-care (01) ==
PROVIDERS: Emergency Provider Emergency Medicine; Family Provider Family Medicine; PCP Family Medicine
DX: I12.0 Hypertensive chronic kidney disease with stage 5 chronic kidney disease or end stage renal disease (principal); N18.6 End stage renal disease; J09.X2 Influenza due to identified novel influenza A virus with other respiratory manifestations; J44.1 Chronic obstructive pulmonary disease with (acute) exacerbation; F17.200 Nicotine dependence, unspecified, uncomplicated; E78.00 Pure hypercholesterolemia, unspecified; Z99.2 Dependence on renal dialysis; Z79.899 Other long term (current) drug therapy
CPT/HCPCS: 36415; 71046; 80053; 81001; 83605; 85025; 85610; 85730; 87040; 87077; 87086; 87088; 87186; 87804; 93005; 94640; 99285; A4216

== ENCOUNTER → 2018-12-21 | Outpatient (CLI) | payer MEDICARE, SELFPAY ==
[2018-11-04 10:19] VITALS: BMI 29.0
--- NOTE | 2018-12-21 06:46 | CT_ITS ---
STUDY: CT TEMPORAL BONES WITHOUT CONTRAST - ATTN: I.A.C. S REASON FOR EXAM: Male, 63 years old. History of left external auditory canal mass. Decreased hearing. RADIATION DOSAGE (If Supplied By Facility): CTDIvol = ( 67.58 ) mGy, DLP = ( 730.30 ) mGycm TECHNIQUE: The patient was scanned in a multi detector CT scanner. Transaxial imaging was performed without the administration of intravenous contrast material. Sagittal and coronal images were reconstructed. Individualized dose optimization techniques were used for this CT. COMPARISON: None. FINDINGS: RIGHT TEMPORAL BONE Normal right internal auditory canal. Normal visualized ossicles and tympanic cavity. Normal right cochlea and semicircular canals. Normal vestibular aqueduct. Normal right petrous carotid artery. Normal right jugular fossa. Normal right mastoid air cells. Normal right petrous apex. LEFT TEMPORAL BONE Normal left internal auditory canal. Soft tissue density seen within the middle ear cavity. Cholesteatoma should be ruled out. Normal left cochlea and semicircular canals. Normal vestibular aqueduct. Normal left petrous carotid artery. Normal right jugular fossa. There are moderate inflammatory changes of the left mastoid air cells consistent with moderate chronic otomastoiditis. Normal left petrous apex. CT/Orb Sella Post Fossa Ear w/o IMPRESSION: Soft tissue density in the left middle ear cavity surrounding the ossicles suggestive of cholesteatoma. Opacification of the left mastoid air cells. No left external auditory canal mass is seen. Electronically Signed: Ronald Johnson, at 8:56 EDT , Service support ,
== END | disposition home or self-care (01) ==
LOC: CT 06:39
PROVIDERS: Family Provider Family Medicine; PCP Family Medicine; Referring Provider Otolaryngology; Visit Provider Otolaryngology
DX: H61.892 Other specified disorders of left external ear (principal)
CPT/HCPCS: 70480

== ENCOUNTER 2019-02-23 07:53 | Emergency (ER) | payer MEDICARE, SELFPAY ==
[2018-11-04 10:19] VITALS: BMI 29.0
[2019-02-23 07:55] VITALS: BP 137/73; PULSE 144; RESP 18; TEMP 36.4; O2SAT 93; BMI 28.3
--- NOTE | 2019-02-23 08:15 | RAD_ITS ---
STUDY: X-RAY CHEST REASON FOR EXAM: Male, 63 years old. Dyspnea. TECHNIQUE: Single AP portable view of the chest. COMPARISON: Comparison is made with prior study dated September 01, 2018. FINDINGS: EKG electrodes are seen. Mild degree of worsening of the pleural parenchymal changes at the left lung base suggestive of superimposed atelectasis and/or infiltrate. There is borderline cardiomegaly. Normal mediastinum and ania. Normal visualized pulmonary arteries. Normal visualized aortic arch and descending thoracic aorta. There are diffuse degenerative changes of the visualized thoracic spine. Normal visualized ribs, clavicles, and shoulders. There is no demonstrated abnormality of the visualized soft tissue structures of the upper abdomen. RAD/Chest 1 View (Portable) IMPRESSION: Slight progression of the pleural parenchymal changes at the left lung base suggestive of progressive atelectasis and/or superimposed infiltrate. Follow-up is recommended. Electronically Signed: Ronald Johnson, at 8:51 EDT , Service support ,
--- NOTE | 2019-02-23 08:15 | EKG12_ITS ---
Test Reason : REPEAT Blood Pressure : / mmHG Vent. Rate : 087 BPM Atrial Rate : 087 BPM P-R Int : 172 ms QRS Dur : 090 ms QT Int : 436 ms P-R-T Axes : 063 022 055 degrees QTc Int : 524 ms Sinus rhythm with frequent Premature ventricular complexes and Premature atrial complexes Prolonged QT Abnormal ECG Confirmed by JACOB GRANDE ([id number]), magazine editor SEAN WEBB ([id number]) on 02/25/2019 2:33:25 PM Referred By: Confirmed By:JACOB GRANDE
--- NOTE | 2019-02-23 08:20 | ED.VISSUMM ---
- ER Visit Summary Date of Service: 02/23/19 Chief Complaint: Fast heart rate History of Present Illness: The patient is a 63 M who reports he was at dialysis today when his heart rate suddenly became 190. States he felt very weak and like he could not catch his breath. He states that those symptoms are still present. He did not wish to come by ambulance. Triage was noted to have a heart rate in the 130s. He states that earlier this year he was admitted for pneumonia follow-up with nephrology was noted to have tachycardia was referred to cardiology. At that time he had an echocardiogram performed and his atenolol was changed to diltiazem. He states that intermittently over the past week he has felt short of breath with his heart racing. Physical Examination: 97.5 heart rate 144 respirations 18 pulse ox 93% room air blood pressure 137/73 Gen: Well-nourished well-developed Head: Normocephalic atraumatic Eyes: Perrl EOMI ENT: TMs clear no rhinorrhea moist mucous membranes Neck: Supple no lymphadenopathy no JVD nontender CVS: Regular rate tachycardic rhythm no murmurs normal S1-S2 Respiratory: Patient has expiratory wheezing chest nontender Abdomen: Soft nontender nondistended normal bowel sounds no masses Back: Nontender Extremity: Nontender no edema left arm fistula Skin: Normal color no rash Neuro: alert orientated ?3 CN II-XII intact normal strength sensation reflexes Psych: Normal affect normal mood Test Results: EKG showed a cardia at a rate of 135. There appears to be a P wave best seen in V1 but it is of minimal amplitude. Chest x-ray showed a progression of left lower lung findings. Please see radiologist read. Basic labs are negative except for troponin 0 0.045 and creatinine 3.37. Emergency Department Course and Treatment: Patient self converted to a sinus rhythm at a rate of 87 with noted ectopy. I spoke with Dr. Hinojosa. Our plan is to increase the patient's diltiazem to 240 mg a day if his blood pressure can tolerate it at dialysis. He is tried 180 twice a day and is been too much for him. He will need a 30-day event monitor so we can capture the tachycardia. The patient was notified of his elevated troponin which could be from primary cardiac disease (however he had a negative stress test 18 months ago) or from his underlying renal disease or from his tachycardia this morning. Patient states he would really like to make his ENT appointment tomorrow and would prefer to follow-up. Impression: 1. Palpitations 2. Indeterminate troponin This note was generated with [employer] dictation software. It may contain incorrect words, spelling, and punctuation that were not noted in review of the chart prior to signing ED Disposition - Plan for ED Patient: Disposition: Home or Assisted Living Instructions: Palpitations Prescriptions: Diltiazem HCl [Diltiazem ER] 240 mg PO DAILY #30 capsule.er Prescription Printed Referrals: Iban Valdez MD [STAFF PHYSICIAN] - As soon as possible Additional Instructions: Please call Dr. Valdez's office. Tell them you are in the emergency department and you need to be set up for a 30-day event monitor and this was discussed with Dr. Hinojosa. Hold your diltiazem 180 mg dose. We are going to increase this to 240 mg dosing. Should your blood pressure would not tolerate this please return to the 180 mg dose. Return to the emergency department at any time with concerns
[2019-02-23 08:25] LABS: Absolute Lymphocyte Count 0.66 X10^3/uL (0.83-4.51); Absolute Neutrophil Count 3.5 X10^3/uL (2.0-7.7); Basophil# 0.01 X10^3/uL; Basophil% 0.2 % (0-1); Eosinophil# 0.07 X10^3/uL; Eosinophils% 1.4 % (0-5); Hematocrit 29.7 % (40-54); Hemoglobin 10.7 g/dL (13.0-16.5); Lymphocyte # 0.66 X10^3/ul (4.0); Lymphocyte % 13.7 % (19-41); Mean Corpuscular Hgb 36.3 pg (27.0-32.0); Mean Corpuscular Volume 100.7 fL (80-94); Mean Platelet Vol. 8.9 fl (6.2-12.0); Monocyte# 0.57 X10^3/uL; Monocyte% 11.8 % (0-10); NRBC Flagged by Analyzer 0 % (0-5); Neutrophil # 3.51 X10^3/uL (2.7-7.7); Neutrophil % 72.7 % (47-70); Platelet Count 193 K/mm3 (150-450); RBC Distribution Width CV 14.3 % (11.6-14.6); RBC Distribution Width SD 52.5 fl (35.1-43.9); Red Blood Count 2.95 M/mm3 (4.6-6.2); White Blood Count 4.8 K/mm3 (4.4-11.0)
[2019-02-23 08:33] LABS: Prothrombin Time (Protime)PT. 13.1 SECONDS (11.7-14.9)
[2019-02-23 08:34] LABS: Partial Thromboplast Time 29.2 Seconds (24.1-36.2)
--- NOTE | 2019-02-23 08:34 | EKG12_ITS ---
Test Reason : SOB
[2019-02-23 08:50] LABS: AST(SGOT) 10 U/L (15-37); Alanine Aminotransfer ALT/SGPT 14 U/L (16-61); Albumin, Serum 3.3 g/dL (3.2-5.0); Alkaline Phosphatase 72 U/L (45-117); Anion Gap 9 (5-15); BUN 16 mg/dL (7-18); BUN/Creat Ratio 4.7 RATIO (10-20); Calcium,Total 7.9 mg/dL (8.5-10.1); Chloride 97 mmol/L (98-107); Creatinine, Serum 3.37 mg/dL (0.70-1.30); EST Glomerular Filtration Rate 20 mL/min (>60); Est Glom Filt Rate - Afr Amer 24 mL/min (>60); Estimated Creatinine Clearance 21.52 ml/min; Globulin 3.3 g/dL (2.2-4.2); Glucose 105 mg/dL (74-106); Magnesium 2.4 mg/dL (1.6-2.6); Potassium 3.5 mmol/L (3.5-5.1); Protein, Total 6.6 g/dL (6.4-8.2); Sodium Level 133 mmol/L (136-145); Thyroid Stim Hormone (TSH) 1.86 uIU/mL (0.358-3.74)
[2019-02-23 10:55] VITALS: BP 134/78; PULSE 62; RESP 15; O2SAT 98
== END 2019-02-23 10:56 | disposition home or self-care (01) ==
PROVIDERS: Emergency Provider Emergency Medicine; Family Provider Family Medicine; PCP Family Medicine
DX: R00.2 Palpitations (principal); I12.0 Hypertensive chronic kidney disease with stage 5 chronic kidney disease or end stage renal disease; N18.6 End stage renal disease; J44.9 Chronic obstructive pulmonary disease, unspecified; Z99.2 Dependence on renal dialysis; Z79.899 Other long term (current) drug therapy; Z72.0 Tobacco use
CPT/HCPCS: 71045; 80053; 83735; 84443; 84484; 85025; 85610; 85730; 93005; 99284; J7030; A4216; J0153

== ENCOUNTER → 2019-03-03 10:42 | Outpatient (REF) | payer MEDICARE, SELFPAY ==
[2019-02-23 07:55] VITALS: BMI 28.3
== END ==
LOC: CVS 10:42
PROVIDERS: Family Provider Family Medicine; PCP Family Medicine; Referring Provider Internal Medicine Cardiovascular Disease; Visit Provider Internal Medicine Cardiovascular Disease
DX: R00.0 Tachycardia, unspecified (principal)
CPT/HCPCS: 93270

== ENCOUNTER 2019-04-06 06:13 | Day surgery (SDC) | payer MEDICARE, SELFPAY ==
[2019-04-06 06:53] LABS: Anion Gap 12 (5-15); BUN 20 mg/dL (7-18); BUN/Creat Ratio 5.5 RATIO (10-20); Calcium,Total 8.5 mg/dL (8.5-10.1); Chloride 96 mmol/L (98-107); Creatinine, Serum 3.66 mg/dL (0.70-1.30); EST Glomerular Filtration Rate 18 mL/min (>60); Est Glom Filt Rate - Afr Amer 22 mL/min (>60); Glucose 93 mg/dL (74-106); Potassium 4.1 mmol/L (3.5-5.1); Sodium Level 132 mmol/L (136-145)
[2019-04-06 07:17] VITALS: BP 143/81; PULSE 72; RESP 16; TEMP 36.8; O2SAT 96; BMI 27.7
[2019-04-06] MEDS: Lactated Ringers 1,000 ML 100 ML IV (07:28)
--- NOTE | 2019-04-06 07:52 | DCINST_ITS ---
You will use the following diet at home:: No restrictions Discharge Activity: Return to Normal Activity Call your doctor if your incision/area has: Foul Smelling Discharge Allergies/Adverse Reactions: Allergies Penicillins Allergy (Verified 03/30/19 13:42) Unknown Medications to take at Discharge Lovastatin [Mevacor] 40 mg PO DAILY 05/09/17 Sevelamer Carbonate [Renvela] 3,200 mg PO DINNER 05/09/17 Tamsulosin HCl [Flomax] 0.4 mg PO DAILY 05/09/17 Citalopram [Celexa] 20 mg PO QHS 07/27/18 Folic Acid/Vitamin B Comp W-C [Nephrocaps, Renaphro] 1 cap PO DAILY 07/27/18 Ipratropium/Albuterol Sulfate [Duoneb] 3 ml INHALATION [id number] #120 ampul.neb 07/28/18 Diltiazem HCl [Diltiazem ER] 240 mg PO DAILY #30 capsule.er 02/23/19 metoprolol succinate ER 50 mg tablet,extended release 24 hr 50 mg PO DAILY #30 tab 03/10/19 Albuterol Aerosols [Ventolin Aerosols] 2.5 mg INHALATION Q6HWA.RT 03/30/19 Primary Care Physician: Doron Recio MD [Primary Care Provider] - Test Results: Test results from this visit will be discussed in further detail at your follow- up appointment, if applicable. Please Follow Up With: Felipe Tamyao MD When: 3 weeks
--- NOTE | 2019-04-06 07:52 | PCM.OPRPT ---
Problem List (1) Chronic serous otitis media of left ear Status: Chronic Report of Operation Date of Procedure: 04/06/19 Pre-Operative Diagnosis: chronic serous otitis, left ear Post-Operative Diagnosis: chronic serous otitis, left ear Surgery/Procedure Performed:: placement pressure equalization tube, left ear Type of Anesthesia:: General Description of Procedure: on the day of the procedure, after appropriate informed consent was obtained, the patient was brought to the operating room and placed in supine position on the operating table. he was placed under general mask anesthesia by the anesthesiologist. the left ear was examined using the binocular operating microscope. a speculum was placed. the tympanic membrane was viewed in its entirety and found to be intact. a radial myringotomy was made in the anterior/inferior quadrant and a T tube tympanostomy tube was placed. floxin otic drops were instilled. the patient was awoken from anesthesia and transferred to the pacu in stable condition
[2019-04-06] MEDS: Ciprofloxacin 0.3% 2.5ml Bottle 1 DRP (08:15)
[2019-04-06 08:24] VITALS: BP 125/68; BP 143/81; PULSE 72; RESP 18; TEMP 37.2; O2SAT 96
[2019-04-06 08:30] VITALS: BP 122/59; BP 143/81; PULSE 72; RESP 18; O2SAT 96
[2019-04-06 08:45] VITALS: BP 130/64; BP 143/81; PULSE 69; RESP 18; TEMP 37.2; O2SAT 95
[2019-04-06 09:04] VITALS: BP 143/81
== END 2019-04-06 09:05 | disposition home or self-care (01) ==
LOC: SDC 06:13 → AC 06:15
PROVIDERS: Family Provider Family Medicine; PCP Family Medicine; Referring Provider Otolaryngology; Visit Provider Otolaryngology
PROC: (CPT 69436; principal; 2019-04-06 07:50)
DX: H65.92 Unspecified nonsuppurative otitis media, left ear (principal); E78.00 Pure hypercholesterolemia, unspecified; F17.210 Nicotine dependence, cigarettes, uncomplicated; Q61.3 Polycystic kidney, unspecified; F41.9 Anxiety disorder, unspecified; I12.0 Hypertensive chronic kidney disease with stage 5 chronic kidney disease or end stage renal disease; N18.6 End stage renal disease; Z99.2 Dependence on renal dialysis; Z79.899 Other long term (current) drug therapy
CPT/HCPCS: 69436; 36415; 80048; J7120

== ENCOUNTER 2019-04-26 07:40 | Emergency (ER) | payer MEDICARE, SELFPAY ==
[2019-04-26 07:41] VITALS: BP 141/77; PULSE 95; RESP 24; TEMP 36.6; O2SAT 97; BMI 27.3
--- NOTE | 2019-04-26 07:46 | ED.RN ---
pt drove self here. states he has to drive self home
--- NOTE | 2019-04-26 07:48 | RAD_ITS ---
STUDY: X-RAY CHEST REASON FOR EXAM: Male, 63 years old. Preoperative examination. TECHNIQUE: Single AP portable view of the chest. COMPARISON: Comparison is made with prior study dated February 23, 2019. FINDINGS: EKG electrode traversing. Stable pleural parenchymal changes at the left lung base. The right lung is clear. There is borderline cardiomegaly. Normal mediastinum and ania. Normal visualized pulmonary arteries. There is atherosclerotic tortuosity of the aortic arch and descending thoracic aorta. There are diffuse degenerative changes of the visualized thoracic spine. Normal visualized ribs, clavicles, and shoulders. There is no demonstrated abnormality of the visualized soft tissue structures of the upper abdomen. RAD/Chest 1 View IMPRESSION: Stable chronic pleural parenchymal changes at the left lung base. Electronically Signed: Ronald Johnson, at 9:23 EDT , Service support ,
--- NOTE | 2019-04-26 07:48 | EKG12_ITS ---
Test Reason : UPPER EXEMITRY Blood Pressure : / mmHG Vent. Rate : 099 BPM Atrial Rate : 076 BPM P-R Int : 000 ms QRS Dur : 096 ms QT Int : 350 ms P-R-T Axes : 000 009 055 degrees QTc Int : 449 ms Atrial fibrillation Abnormal ECG Confirmed by MARIA DOLORES CERVANTES, ALEJA ([id number]), purchasing expeditor BENTON CONRAD ([id number] on 04/28/2019 8:41:59 AM Referred By: MARCIO Confirmed By:ALEJA WHITTEN MD
--- NOTE | 2019-04-26 07:49 | RAD_ITS ---
STUDY: X-RAY - LEFT WRIST REASON FOR EXAM: Male, 63 years old. Deformity of the wrist following a fall. TECHNIQUE: AP and lateral view(s) of the wrist were obtained. COMPARISON: None. FINDINGS: There is evidence of a comminuted dorsally and there is radially displaced fracture involving the distal ulnar and radial metaphysis with extension to the articular surface. There is widening of the distal radial ulnar joint. Normal carpal bones. Normal carpal articulations. Normal carpometacarpal articulation of the thumb. Normal second through fifth carpometacarpal articulations. Normal visualized metacarpal bones. Diffuse soft tissue swelling. RAD/Wrist 2 Views IMPRESSION: Comminuted dorsally and radially displaced fractures of the distal radial and ulnar metaphysis. Diffuse soft tissue swelling. Electronically Signed: Ronald Johnson, at 9:23 EDT , Service support ,
--- NOTE | 2019-04-26 07:53 | ED.VIS.GEN ---
History of Present Illness Chief Complaint: Upper Extremity Injury Informant: Patient Onset: Today Context: Sudden Onset Timing: Intermittent Quality: Orthostatic and pain left wrist Location: Home Current Severity: Moderate Maximum Severity: Severe Worsened by: Standing and movement left upper extremity respectively Relieved by: Sitting and nonuse Associated Symptoms: None Narrative: Patient is a 63-year-old male with multiple problems who states she became lightheaded when he stood. This is not uncommon. He fell onto his outstretched left upper extremity. He presents with deformity. He denies paresthesia, anesthesia motors. States he is allergic to penicillin. Is not eaten or drink since 0 last evening. He denies head trauma. He denies neck pain. He denies cardiac respiratory symptoms. He denies black or maroon stool. He was scheduled to see cardiology this morning at 0830. He has end-stage renal disease and has dialysis on Friday, and Friday. Prior similar symptoms: Yes Recent Illness/Hospitalization: Yes - Past Medical History (1) Cardiomyopathy in diseases classified elsewhere Status: Chronic (2) Nicotine dependence Status: Chronic (3) Hyperlipidemia Status: Chronic (4) ESRD (end stage renal disease) on dialysis Status: Chronic (5) Benign hypertension Status: Chronic (6) Current drinker of alcohol Status: Chronic Past Medical History - Allergies and Home Meds Allergies/Adverse Reactions: Allergies Penicillins Allergy (Verified 04/26/19 07:43) Unknown Primary Care Physician: Doron Recio MD [Primary Care Provider] - Prior records reviewed: Yes Surgical History: - - AVF left upper arm Lives: Alone Smoking Status: Current every day smoker Alcohol: Occasional Drugs: None - Family History Paternal Family History: Family History (Last Reviewed 08/12/18 @ 11:40 by Ibna Valdez MD) Mother Cancer Father Cancer Family History: Reports: Cancer Sibling Family History: Family History (Last Reviewed 08/12/18 @ 11:40 by Iban Valdez MD) Mother Cancer Father Cancer Family History: Reports: Renal Disease Maternal Family History: Family History (Last Reviewed 08/12/18 @ 11:40 by Iban Valdez MD) Mother Cancer Father Cancer Family History: Reports: Cancer Review of Systems General: Denies: Chills, Fever, Malaise, Sweats Eyes: Denies: Visual changes - bilaterally, Blurred Vision - bilaterally ENT: Denies: Bilateral ear pain, Rhinorrhea, Sore throat Cardiovascular: Denies: Chest pain, Palpitations, Heart racing Respiratory: Reports: Dyspnea, Dyspnea on exertion, Orthopnea - Orthopnea is chronic. He sleeps in recliner at 30 degrees.. Denies: Cough, Sputum, Paroxysmal nocturnal dyspnea Genitourinary: Reports: - - Patient states he does not make urine Musculoskeletal: Reports: Swelling, Extremity Pain. Denies: Myalgias, Arthralgias, Neck pain, Back pain Skin: Reports: Wounds - There is a wound noted distal ulnar left wrist consistent with a puncture wound. Denies: Rash Neurological: Reports: Weakness. Denies: Headache, Parasthesia Hematologic: Denies: Easy bruising, Easy bleeding Allergy: Denies: Uticaria, Swelling of the mouth Physical Exam Vital Signs/Narrative: Vital Signs Temp Pulse Resp BP Pulse Ox 04/26/19 07:41 98 F 95 24 H 141/77 H 97 Inital Vital Signs reviewed: Yes General: Well nourished, Well developed, Obese, Unkempt Head: Normocephalic, Atraumatic Eyes: Perrl, EOMI, Pale conjunctiva. Negative for: Scleral icterus ENT: Moist mucous membranes, No rhinorrhea, TM's clear Neck: Supple, Nontender, No lymphadenopathy, No JVD, - - Patient has expiratory stridor. He states he is on medicine for the wheezing . Cardiovascular: Regular rate, Regular rhythm, No murmurs, Normal S1, Normal S2 Respiratory: No distress, CTA bilaterally, Chest nontender. Negative for: Rales, Rhonchi, Wheezing Abdomen: Soft, Nontender, Nondistended, Normal bowel sounds Back: Nontender Extremities: Nontender, Edema - 1+ pitting bilaterally Skin: No rash, Pallor, Trauma. Negative for: Cyanosis, Diaphoresis, Jaundice, No Trauma Neurological: Alert, Oriented x3, Cranial nerves II-XII grossly intact, Normal Strength, Normal Sensation Psychological: Normal affect Diagnostic/Tx/Re-eval Chest X-Ray - ED: 2 View, Read by ED Physician - 2 view x-ray of the left wrist reveals transverse extra-articular fracture of the distal ulna and radius with 50 to 75% displacement. The bones are shifted radially. There is significant shortening. There is subcu air noted tracking up the ulna. Single view x-ray of the chest reveals chronic changes. The x-ray is slightly rotated. There is slight blurring of the left hemidiaphragm., - 04/26/19 07:48 Chest PA and Lateral [RAD] Stat 04/26/19 07:49 Wrist min 3 Views [RAD] Stat Laboratory Results 04/26/19 04/26/19 08:00 08:00 WBC 7.5 RBC 3.48 L Hgb 11.9 L Hct 34.9 L MCV 100.3 H MCH 34.2 H MCHC 34.1 RDW Std Deviation 51.3 H RDW Coeff of Karl 14.0 Plt Count 188 MPV 10.0 Sodium 125 L Potassium 4.7 Chloride 92 L Carbon Dioxide 22.0 Anion Gap 11 BUN 47 H Creatinine 5.36 H Estim Creat Clear Calc 14.47 Est GFR (MDRD) Af Amer 14 L Est GFR (MDRD) Non-Af 12 L BUN/Creatinine Ratio 8.8 L Glucose 130 H Calcium 8.5 - Rhythm Strip Rhythm Strip: A-fib Rate: 94 - EKG Initial EKG Interpretation: Atrial Fibrillation - Atrial fibrillation with ventricular rate of 99. QRS duration 96 ms. QT duration 3 and 50 ms. Munith is normal. There are no ischemic changes noted. - Medical Decision Making With history of multiple medical problems including cardiomyopathy and orthostatic symptoms will obtain baseline blood work to assess H&H, BUN and creatinine as well as electrolytes. EKG was obtained to determine if there is any evidence of ischemia or dysrhythmia. Chest x-ray for preoperative clearance. X-ray of the left wrist was obtained because of the obvious deformity. Tetanus was updated and because of reported allergy to penicillin he received a dose of clindamycin IV piggyback. Call was placed to the cardiology office to inform the clinician seeing Mr. Funk that he would not make his appointment. He has a history of alcoholic cardiomyopathy. His last echo was July 2018 with an EF of 55%. Discussed with Dr. Cachorro Slaughter on-call for orthopedics. He recommended transfer to [facility]. He states patient probably will need an ex-fix, which he does not do. He was informed need for transfer. He did not have a preference. He took Dr. Cachorro Slaughter's recommendation. ED Disposition - Plan for ED Patient: Disposition: [facility] Diagnosis: Open fracture of left distal radius and ulna, Paroxysmal atrial fibrillation, ESRD (end stage renal disease) on dialysis, Benign hypertension, Hyperlipidemia Referrals: Doron Recio MD [Primary Care Provider] -
[2019-04-26] MEDS: Ondansetron 4 MG/2 ML Vial IV (08:04)
[2019-04-26] MEDS: Morphine 4 MG/ML Syringe IV (08:04)
[2019-04-26 08:12] LABS: Hematocrit 34.9 % (40-54); Hemoglobin 11.9 g/dL (13.0-16.5); Mean Corp Hgb Conc 34.1 g/dL (32-36); Mean Corpuscular Hgb 34.2 pg (27.0-32.0); Mean Corpuscular Volume 100.3 fL (80-94); Platelet Count 188 K/mm3 (150-450); RBC Distribution Width SD 51.3 fl (35.1-43.9); Red Blood Count 3.48 M/mm3 (4.6-6.2); White Blood Count 7.5 K/mm3 (4.4-11.0)
[2019-04-26 08:24] LABS: Anion Gap 11 (5-15); BUN 47 mg/dL (7-18); BUN/Creat Ratio 8.8 RATIO (10-20); Calcium,Total 8.5 mg/dL (8.5-10.1); Chloride 92 mmol/L (98-107); Creatinine, Serum 5.36 mg/dL (0.70-1.30); EST Glomerular Filtration Rate 12 mL/min (>60); Est Glom Filt Rate - Afr Amer 14 mL/min (>60); Estimated Creatinine Clearance 14.47 ml/min; Glucose 130 mg/dL (74-106); Potassium 4.7 mmol/L (3.5-5.1); Sodium Level 125 mmol/L (136-145)
[2019-04-26] MEDS: HYDROmorphone 0.5 MG/0.5 ML SYRINGE IV ×3 (08:36→10:19)
[2019-04-26] MEDS: Diphth,Pertuss(Acell),Tet Vac 0.5 ML Vial IM (08:44)
--- NOTE | 2019-04-26 08:54 | NURSING ---
DR JASON PONCE
--- NOTE | 2019-04-26 09:11 | NURSING ---
CALLED [facility] FOR TRANSFER. TALKED TO AYLIN
--- NOTE | 2019-04-26 09:26 | NURSING ---
ACCEPTED AT [facility]. ER TO ER
[2019-04-26 09:57] VITALS: BP 130/75; PULSE 69; RESP 14; O2SAT 93
== END 2019-04-26 10:23 | disposition short-term general hospital (02) ==
PROVIDERS: Emergency Provider Emergency Medicine; Family Provider Family Medicine; PCP Family Medicine
DX: S52.572B Other intraarticular fracture of lower end of left radius, initial encounter for open fracture type I or II (principal); S52.692B Other fracture of lower end of left ulna, initial encounter for open fracture type I or II; I12.0 Hypertensive chronic kidney disease with stage 5 chronic kidney disease or end stage renal disease; N18.6 End stage renal disease; E78.5 Hyperlipidemia, unspecified; I48.0 Paroxysmal atrial fibrillation; Z99.2 Dependence on renal dialysis; F17.200 Nicotine dependence, unspecified, uncomplicated; Z23 Encounter for immunization; I42.6 Alcoholic cardiomyopathy; W18.30XA Fall on same level, unspecified, initial encounter; Y93.89 Activity, other specified; Y92.009 Unspecified place in unspecified non-institutional (private) residence as the place of occurrence of the external cause; Y99.8 Other external cause status
CPT/HCPCS: 29125; 71045; 73100; 80048; 85027; 90715; 93005; 96365; 96375; 96376; 99285; J7030; A4216; J2405

== ENCOUNTER 2019-05-03 18:42 | Emergency (ER) | payer MEDICARE, SELFPAY ==
[2019-05-03 18:44] VITALS: BP 137/86; PULSE 118; RESP 19; TEMP 37.1; O2SAT 99; BMI 29.8
--- NOTE | 2019-05-03 18:55 | RAD_ITS ---
STUDY: X-RAY CHEST REASON FOR EXAM: Male, 63 years old. Chest pain TECHNIQUE: Frontal view of the chest COMPARISON: X-ray chest April 26, 2019 FINDINGS: Left lower lung zone infiltrate with small effusion is present. The right lung and pleural space are clear. There is no pneumothorax. The heart is enlarged. The visualized osseous structures are within normal limits. RAD/Chest 1 View (Portable) IMPRESSION: Left lower lung zone infiltrate with small effusion. Cardiomegaly. Electronically Signed: Shakeel Martinez, at 19:26 EDT Tel , Service support ,
--- NOTE | 2019-05-03 18:56 | EKG12_ITS ---
Test Reason : Blood Pressure : / mmHG Vent. Rate : 109 BPM Atrial Rate : 085 BPM P-R Int : 000 ms QRS Dur : 088 ms QT Int : 334 ms P-R-T Axes : 000 012 101 degrees QTc Int : 449 ms Atrial fibrillation with rapid ventricular response Nonspecific ST and T wave abnormality Abnormal ECG Confirmed by GONZALO CERVANTES, CARA ([id number]), state editor BENTON CONRAD ([id number]) on 05/07/2019 10:39:57 AM Referred By: ALLISON Confirmed By:CARA SÁNCHEZ MD
--- NOTE | 2019-05-03 19:04 | ED.VIS.GEN ---
History of Present Illness Chief Complaint: Chest Other Detail of Chief Complaint: A. fib, EKG changes Informant: Patient Narrative: Patient presents via EMS with atrial fibrillation. Patient has a history of paroxysmal A. fib. Patient was seen here on April 26 after a fall. He had a wrist fracture and required transfer to [facility] for surgery. Patient states he signed out AMA from there yesterday. He states he got 2 episodes of dialysis while he was there, but he does not member what days. He saw his PCP this morning. EKG reportedly showed some changes and he was advised to come straight to the emergency room. Patient went home and drank beer and smoked cigarettes first, then called EMS later this evening. Past Medical History - Allergies and Home Meds Allergies/Adverse Reactions: Allergies Penicillins Allergy (Verified 04/26/19 07:43) Unknown Primary Care Physician: Doron Recio MD [Primary Care Provider] - Prior records reviewed: Yes Past Medical History: - - Reviewed Surgical History: - - AVF left upper arm Smoking Status: Current every day smoker - Family History Paternal Family History: Family History (Last Reviewed 08/12/18 @ 11:40 by Iban Valdez MD) Mother Cancer Father Cancer Family History: Reports: Cancer Sibling Family History: Family History (Last Reviewed 08/12/18 @ 11:40 by Iban Valdez MD) Mother Cancer Father Cancer Family History: Reports: Renal Disease Maternal Family History: Family History (Last Reviewed 08/12/18 @ 11:40 by Iban Valdez MD) Mother Cancer Father Cancer Family History: Reports: Cancer Review of Systems General: Denies: Chills, Fever Eyes: Denies: Visual changes - bilaterally ENT: Denies: Bilateral ear pain Cardiovascular: Denies: Palpitations Respiratory: Reports: Dyspnea, Cough Gastrointestinal: Denies: Abdominal pain, Vomiting Musculoskeletal: Reports: Extremity Pain Skin: Denies: Rash Allergy: Denies: Uticaria Physical Exam Vital Signs/Narrative: Vital Signs Temp Pulse Resp BP Pulse Ox 05/03/19 18:44 98.7 F 118 H 19 H 137/86 H 99 Inital Vital Signs reviewed: Yes General: Well nourished Head: Normocephalic Eyes: EOMI ENT: Moist mucous membranes Cardiovascular: Irregular, Tachycardia Respiratory: - - Mild rhonchi bilaterally. Abdomen: Soft, Nontender Extremities: - - Left wrist in splint with Jeff wrap. Neurological: Alert, Oriented x3 Psychological: Normal affect Diagnostic/Tx/Re-eval Impressions Chest X-Ray 05/03/19 18:55 IMPRESSION: Left lower lung zone infiltrate with small effusion. Cardiomegaly. Electronically Signed: Shakeel Martinez, at 19:26 EDT Tel , Service support , 05/03/19 18:55 Chest 1 View (Portable) [RAD] Stat Laboratory Results 05/03/19 05/03/19 05/03/19 18:52 18:52 18:52 WBC 10.9 RBC 2.61 L Hgb 9.0 L Hct 27.2 L MCV 104.2 H MCH 34.5 H MCHC 33.1 RDW Std Deviation 54.4 H RDW Coeff of Karl 14.4 Plt Count 213 MPV 10.2 Immature Gran % (Auto) 0.500 Neut % (Auto) 72.3 H Lymph % (Auto) 13.3 L Hayes % (Auto) 13.1 H Eos % (Auto) 0.7 Baso % (Auto) 0.1 Absolute Neuts (auto) 7.9 H Absolute Lymphs (auto) 1.45 Nucleated RBC % 0 PT 14.9 INR 1.2 APTT 31.5 Sodium 130 L Potassium 4.9 Chloride 96 L Carbon Dioxide 24.0 Anion Gap 10 BUN 74 H Creatinine 6.11 H Estim Creat Clear Calc 12.70 Est GFR (MDRD) Af Amer 12 L Est GFR (MDRD) Non-Af 10 L BUN/Creatinine Ratio 12.1 Glucose 72 L Calcium 8.3 L Troponin I < 0.015 - EKG Initial EKG Interpretation: Atrial Fibrillation - A. fib at 109. Minimal lateral ST depression. - Medical Decision Making Patient was given 20 mg of IV Cardizem. Heart rate improved into the 80s. He remained in atrial fibrillation. Patient advised me he has not taken any of his medications today and he is given the medications that is doing him. He is given 1 tab of oxycodone for pain as he did not receive any pain medication when he was discharged from the hospital. I spoke with Dr. Perez, who states patient can come tomorrow for dialysis although the patient had already called and canceled his appointment. I also spoke with Dr. Valdez. When the patient was last seen in the office he had a history of tachycardia but not atrial fibrillation. He is not currently anticoagulated. Dr. Valdez asked that we increase his metoprolol from 50 mg to 75 mg. He has an appointment with Dr. Valdez on May 25 and will be reevaluated at that time to see if he needs anticoagulants. ED Disposition - Plan for ED Patient: Disposition: Home or Assisted Living Diagnosis: Atrial fibrillation with RVR Instructions: Atrial Fibrillation Prescriptions: Metoprolol Tartrate 75 mg PO BID #60 tablet Oxycodone HCl/Acetaminophen [Percocet 5/325] 1 tablet PO Q6H PRN PRN 3 Days #12 tablet PRN Reason: Pain Referrals: Iban Valdez MD [STAFF PHYSICIAN] - Keep Edgar appointment Additional Instructions: You are to take Metoprolol 75mg (new prescription written) instead of the previously prescribed 50mg.
[2019-05-03 19:29] LABS: Absolute Lymphocyte Count 1.45 X10^3/uL (0.83-4.51); Absolute Neutrophil Count 7.9 X10^3/uL (2.0-7.7); Basophil# 0.01 X10^3/uL; Basophil% 0.1 % (0-1); Eosinophil# 0.08 X10^3/uL; Eosinophils% 0.7 % (0-5); Hematocrit 27.2 % (40-54); Lymphocyte # 1.45 X10^3/ul (4.0); Lymphocyte % 13.3 % (19-41); Mean Corp Hgb Conc 33.1 g/dL (32-36); Mean Corpuscular Hgb 34.5 pg (27.0-32.0); Mean Corpuscular Volume 104.2 fL (80-94); Mean Platelet Vol. 10.2 fl (6.2-12.0); Monocyte# 1.43 X10^3/uL; Monocyte% 13.1 % (0-10); NRBC Flagged by Analyzer 0 % (0-5); Neutrophil # 7.86 X10^3/uL (2.7-7.7); Neutrophil % 72.3 % (47-70); Platelet Count 213 K/mm3 (150-450); RBC Distribution Width CV 14.4 % (11.6-14.6); RBC Distribution Width SD 54.4 fl (35.1-43.9); Red Blood Count 2.61 M/mm3 (4.6-6.2); White Blood Count 10.9 K/mm3 (4.4-11.0)
[2019-05-03] MEDS: dilTIAZem 25 MG/5 ML Vial 20 MG IV BOLUS (19:29)
[2019-05-03 19:30] VITALS: PULSE 118
--- NOTE | 2019-05-03 19:31 | ED.RN ---
PT states his last dialysis was I believe .
[2019-05-03 19:32] LABS: International Normalized Ratio 1.2; Prothrombin Time (Protime)PT. 14.9 SECONDS (11.7-14.9)
[2019-05-03 19:33] LABS: Partial Thromboplast Time 31.5 Seconds (24.1-36.2)
[2019-05-03 19:39] VITALS: BP 127/70; PULSE 92; RESP 24; O2SAT 95
--- NOTE | 2019-05-03 19:39 | ED.RN ---
ICE TO LEFT ARM FX AND ELEVATED.
[2019-05-03 19:41] LABS: Anion Gap 10 (5-15); BUN 74 mg/dL (7-18); BUN/Creat Ratio 12.1 RATIO (10-20); Calcium,Total 8.3 mg/dL (8.5-10.1); Chloride 96 mmol/L (98-107); Creatinine, Serum 6.11 mg/dL (0.70-1.30); EST Glomerular Filtration Rate 10 mL/min (>60); Est Glom Filt Rate - Afr Amer 12 mL/min (>60); Glucose 72 mg/dL (74-106); Potassium 4.9 mmol/L (3.5-5.1); Sodium Level 130 mmol/L (136-145)
[2019-05-03 20:02] VITALS: BP 120/74; PULSE 109; RESP 20; O2SAT 99
[2019-05-03] MEDS: oxyCODONE 5 MG Tablet PO (20:02)
[2019-05-03 20:58] VITALS: BP 130/74; PULSE 100; RESP 18; O2SAT 96
--- NOTE | 2019-05-03 20:59 | ED.RN ---
PT OKAY THIS RN TO WRITE STOP ON METOPROLOL BOTTLE THE RX HAS CHANGED. PT UNDERSTANDS TO GET NEW RX TOMORROW AND START NEW DOSAGE TOMORROW. PT AMBULATED TO LOBBY WITH A STEADY AND INDEPENDENT GAIT. FRIEND WAITING FOR HIM FOR RIDE HOME.
== END 2019-05-03 21:00 | disposition home or self-care (01) ==
PROVIDERS: Emergency Provider Emergency Medicine; Family Provider Family Medicine; PCP Family Medicine
DX: I48.0 Paroxysmal atrial fibrillation (principal); Z99.2 Dependence on renal dialysis; F17.210 Nicotine dependence, cigarettes, uncomplicated
CPT/HCPCS: 71045; 80048; 84484; 85025; 85610; 85730; 93005; 96374; 99285; A4216

== ENCOUNTER 2019-05-12 12:13 | Emergency (ER) | payer MEDICARE, SELFPAY ==
[2019-05-12 12:14] VITALS: BP 124/73; PULSE 103; RESP 19; TEMP 37.2; O2SAT 100; BMI 28.2
--- NOTE | 2019-05-12 12:37 | EKG12_ITS ---
Test Reason : WEAKNESS Blood Pressure : / mmHG Vent. Rate : 110 BPM Atrial Rate : 102 BPM P-R Int : 000 ms QRS Dur : 090 ms QT Int : 362 ms P-R-T Axes : 000 021 069 degrees QTc Int : 489 ms Atrial fibrillation with rapid ventricular response Nonspecific ST and T wave abnormality Abnormal ECG Confirmed by GONZALO CERVANTES, CARA ([id number]), business editor SEAN WEBB ([id number]) on 05/17/2019 8:38:22 AM Referred By: SYED Confirmed By:CARA SÁNCHEZ MD
--- NOTE | 2019-05-12 12:39 | ED.VISSUMM ---
- ER Visit Summary Date of Service: 05/12/19 Chief Complaint: Generalized weakness History of Present Illness: The patient is a 63 M who presents with weakness that is been getting progressively worse over the past week. Patient states he is having difficulty ambulating and caring for himself at home. Patient has a short arm cast on his left arm. Patient states he broke his wrist when he fell last week. Patient admits to subjective chills. Patient also admits to urinary frequency. Patient admits to some shortness of breath and cough. Patient admits to nausea but denies any vomiting. Patient had dialysis today. Patient states he normally has dialysis on Tuesdays, , and Saturdays. Patient states he missed his dialysis yesterday and had his dialysis today instead. Physical Examination: Vital signs are stable. Patient is afebrile. Patient is in no acute distress. Oral mucosa is pink and moist. Neck is supple. Trachea is midline. There is no JVD. Heart was irregularly irregular. Lungs are clear and equal bilaterally. Abdomen is soft. Bowel sounds are normal. There is some mild right lower abdominal tenderness. There is no rebound or guarding noted. Extremities are intact. There is no calf tenderness or edema. There is a palpable thrill over his AV fistula in his left upper arm. Test Results: EKG showed atrial fibrillation with a rate of 110. There are no acute ST or T wave changes. CBC shows a slight leukocytosis of 12.0. Hemoglobin was 7.3 and hematocrit was 21.8. This is only a slight decrease from previous result. Comprehensive metabolic profile showed a creatinine of 3.22 which is consistent with prior results. Urinalysis shows evidence of urinary tract infection with leukocyte esterase of 525-50 white blood cells. Troponin was normal. PA and lateral chest x-ray was obtained. There are chronic changes but no acute cardiopulmonary process. Emergency Department Course and Treatment: Patient was given a dose of Bactrim DS here. Patient was feeling better on reevaluation. Patient was able to ambulate to the bathroom without difficulty. Patient was given a prescription for Bactrim. Patient was instructed to follow-up with his primary care physician in 3 to 5 days for further evaluation. Patient was instructed to return if worse in any way. Patient understood and was agreeable with the plan. All questions were answered. Disposition: Discharge home Impression: Urinary tract infection This note was generated with Dragon dictation software. It may contain incorrect words, spelling, and punctuation that were not noted in review of the chart prior to signing ED Disposition - Plan for ED Patient: Disposition: Home or Assisted Living Diagnosis: Urinary tract infection Instructions: Bladder Infection, Male (Adult) Prescriptions: Smz/Tmp Ds [Bactrim Ds] 1 tab PO BID #6 tab Transmission Status: Received by [facility][id number] Referrals: Doron Recio MD [Primary Care Provider] - 3-5 Days
--- NOTE | 2019-05-12 13:10 | RAD_ITS ---
STUDY: X-RAY CHEST REASON FOR EXAM: Male, 63 years old. Soreness of breath/dyspnea. TECHNIQUE: PA and lateral views of the chest. COMPARISON: Comparison is made with prior study May 03, 2019. FINDINGS: EKG electrodes are seen. Hyperinflation. Persistent pleural parenchymal changes at the left lung base although there has been mild improvement as compared to prior study. The right lung remains clear. Normal size heart. Normal mediastinum and ania. Normal visualized pulmonary arteries. There is atherosclerotic tortuosity of the aortic arch and descending thoracic aorta. There are diffuse degenerative changes of the visualized thoracic spine. Normal visualized ribs, clavicles, and shoulders. There is no demonstrated abnormality of the visualized soft tissue structures of the upper abdomen. RAD/Chest PA and Lateral IMPRESSION: Left pleural-parenchymal changes as described. There has been mild improvement as compared to prior study. The right lung is clear. Electronically Signed: Ronald Johnson, at 13:37 EDT , Service support ,
[2019-05-12 13:11] LABS: Absolute Lymphocyte Count 0.64 X10^3/uL (0.83-4.51); Absolute Neutrophil Count 10.2 X10^3/uL (2.0-7.7); Basophil# 0.01 X10^3/uL; Basophil% 0.1 % (0-1); Eosinophil# 0.06 X10^3/uL; Eosinophils% 0.5 % (0-5); Hematocrit 21.8 % (40-54); Hemoglobin 7.3 g/dL (13.0-16.5); Lymphocyte # 0.64 X10^3/ul (4.0); Lymphocyte % 5.4 % (19-41); Mean Corp Hgb Conc 33.5 g/dL (32-36); Mean Corpuscular Hgb 34.1 pg (27.0-32.0); Mean Corpuscular Volume 101.9 fL (80-94); Mean Platelet Vol. 9.5 fl (6.2-12.0); Monocyte# 1.02 X10^3/uL; Monocyte% 8.5 % (0-10); NRBC Flagged by Analyzer 0 % (0-5); Neutrophil # 10.15 X10^3/uL (2.7-7.7); Neutrophil % 84.8 % (47-70); Platelet Count 230 K/mm3 (150-450); RBC Distribution Width CV 13.8 % (11.6-14.6); RBC Distribution Width SD 51.2 fl (35.1-43.9); Red Blood Count 2.14 M/mm3 (4.6-6.2)
[2019-05-12 13:20] LABS: International Normalized Ratio 1.2; Prothrombin Time (Protime)PT. 14.9 SECONDS (11.7-14.9)
[2019-05-12 13:21] LABS: Partial Thromboplast Time 42.1 Seconds (24.1-36.2)
[2019-05-12 13:31] LABS: ALB/GLOB Ratio 0.6 RATIO (0.9-2.4); AST(SGOT) 12 U/L (15-37); Alanine Aminotransfer ALT/SGPT 12 U/L (16-61); Albumin, Serum 2.6 g/dL (3.2-5.0); Alkaline Phosphatase 87 U/L (45-117); Anion Gap 10 (5-15); BUN 15 mg/dL (7-18); BUN/Creat Ratio 4.7 RATIO (10-20); Calcium,Total 8.2 mg/dL (8.5-10.1); Chloride 95 mmol/L (98-107); Creatinine, Serum 3.22 mg/dL (0.70-1.30); EST Glomerular Filtration Rate 21 mL/min (>60); Est Glom Filt Rate - Afr Amer 25 mL/min (>60); Estimated Creatinine Clearance 24.09 ml/min; Glucose 81 mg/dL (74-106); Lipase 151 U/L (73-393); Potassium 3.3 mmol/L (3.5-5.1); Protein, Total 6.6 g/dL (6.4-8.2); Sodium Level 135 mmol/L (136-145)
[2019-05-12 13:45] LABS: Mucous, Urine 0 SEEN /hpf (<or=2+)
[2019-05-12 13:47] LABS: Color, Urine Yellow (Yellow); Glucose, Dipstick Normal (Normal); Ketone-Dipstick Negative (Negative); Leukocyte Esterase-Dipstick 500 /ul (Negative); Nitrite-Dipstick Negative (Negative); Occult Blood-Urine 25 /ul (Negative); Protein-Dipstick 100 mg/dl (Negative); Specific Gravity, Urine 1.015 (1.002-1.030); Urine Bilirubin Dipstick Negative (Negative); Urine Clarity Sl. Cloudy (Clear); Urine Urobilinogen Normal (Normal)
[2019-05-12 14:11] LABS: Red Blood Cells-Urine 0-5 SEEN /hpf (0-5); White Blood Cells 25-50 SEEN /hpf (0-5)
[2019-05-12 14:12] LABS: Bacteria 1+ /hpf (None Seen); Squamous Epithelial Cells - UA 0-5 SEEN /hpf (0-5)
[2019-05-12 14:43] VITALS: BP 122/66; PULSE 84; RESP 16; O2SAT 97
[2019-05-12] MEDS: Smz/Tmp Ds Tablet 1 TABLET PO (14:49)
== END 2019-05-12 14:53 | disposition home or self-care (01) ==
PROVIDERS: Emergency Provider Emergency Medicine; Family Provider Family Medicine; PCP Family Medicine
DX: N39.0 Urinary tract infection, site not specified (principal); N18.6 End stage renal disease; Z99.2 Dependence on renal dialysis
CPT/HCPCS: 71046; 80053; 81001; 83690; 84484; 85018; 85025; 85610; 85730; 93005; 99285; A4216

== ENCOUNTER → 2019-05-12 | Outpatient (CLI) | payer MEDICARE, SELFPAY ==
[2019-05-03 18:44] VITALS: BMI 29.8
[2019-05-12 09:06] LABS: Hemoglobin 7.7 g/dL (13.0-16.5)
== END | disposition home or self-care (01) ==
PROVIDERS: Family Provider Family Medicine; PCP Family Medicine; Referring Provider Internal Medicine Nephrology; Visit Provider Internal Medicine Nephrology
DX: D64.9 Anemia, unspecified (principal)
CPT/HCPCS: 85018

== ENCOUNTER → 2019-06-23 07:00 | Outpatient (CLI) | payer MEDICARE, SELFPAY ==
[2019-06-09 08:44] VITALS: BMI 25.8
--- NOTE | 2019-06-23 07:03 | CT_ITS ---
STUDY: CT ABDOMEN AND PELVIS WITH AND WITHOUT CONTRAST REASON FOR EXAM: Male, 63 years old. Low back pain and hematuria RADIATION DOSAGE (If Supplied By Facility): CTDIvol = ( 19.12 ) mGy, DLP = ( 1921.64 ) mGycm TECHNIQUE: Transaxial images were obtained from the dome of the diaphragm to the symphysis pubis without oral contrast. 100mL Isovue-370 was administered. Sagittal and coronal images were reconstructed. Individualized dose optimization techniques were used for this CT. COMPARISON: None. FINDINGS: There is a moderate size right pleural effusion and a smaller one on the left with mild bibasilar atelectasis. The visualized portions of the heart are within normal limits. The liver is normal size demonstrating multiple cysts of varying sizes. Bile ducts are not dilated. Normal gallbladder and extrahepatic biliary system. Normal spleen. Normal pancreas. Normal bilateral adrenal glands. The kidneys are enlarged and there are innumerable cysts some of which appear complex bilaterally consistent with known polycystic kidney disease. There is no evidence for hydronephrosis or ureteral calculus. Normal visualized stomach. Normal small intestine. Diverticular changes of the descending colon without evidence for acute diverticulitis.. No evidence for acute appendicitis. Atherosclerotic changes of the aorta without evidence for aneurysm. Normal inferior vena cava. Normal retroperitoneum. The prostate appears mildly enlarged. There is incompletely distended thick-walled bladder likely of no significance There are bilateral fat-containing inguinal hernias larger on the right. There appears to be small amount of fluid within the distal right inguinal canal.. Lumbar spine demonstrates degenerative changes. There is irregular wedging of the superior endplates of L2 and L5 both of which demonstrate irregular sclerosis. This could be due to pathologic fractures, inflammatory disease or due to chronic renal insufficiency. MRI with and without contrast would be helpful for further evaluation if indicated CT/CT Abd/Pelvis W/WO Contrast IMPRESSION: Findings consistent with adult onset polycystic kidney disease with multiple cysts of varying sizes several which are complex. MRI with contrast would be helpful to exclude neoplastic lesions if clinically warranted. No evidence for hydronephrosis or ureteral calculus Wedging of superior endplate of L2 and L5 cortical irregularity and increased sclerotic changes. Pathologic fractures, inflammatory disease or perhaps changes due to chronic renal insufficiency may create this appearance. MRI with contrast would be helpful for further evaluation if clinically warranted. Other findings as above Electronically Signed: Shakeel Maurice MD at 19:01 EST , Service support ,
== END ==
PROVIDERS: Family Provider Family Medicine; PCP Family Medicine; Referring Provider Internal Medicine Nephrology; Visit Provider Internal Medicine Nephrology
DX: R31.9 Hematuria, unspecified (principal); M54.9 Dorsalgia, unspecified; Q61.2 Polycystic kidney, adult type; N18.6 End stage renal disease
CPT/HCPCS: 74178; Q9967

== ENCOUNTER 2019-06-25 09:32 | Emergency (ER) | payer MEDICARE, SELFPAY ==
[2019-06-09 08:44] VITALS: BMI 25.8
[2019-06-25 09:32] VITALS: BP 159/70; PULSE 75; RESP 18; TEMP 37; O2SAT 97; BMI 27.0
--- NOTE | 2019-06-25 09:53 | RAD_ITS ---
STUDY: X-RAY CHEST REASON FOR EXAM: Male, 63 years old. Cough, shortness of breath and cervical swelling. TECHNIQUE: Single AP portable view of the chest. COMPARISON: Comparison is made with prior examination dated May 12, 2019. FINDINGS: Stable appearance of the pleural parenchymal changes at the left lung base. Stable blunting of the right costophrenic angle. There now is evidence of a mild degree of vascular congestion. Possible early infiltrate in the left upper lobe. There is borderline cardiomegaly. Normal mediastinum and ania. Normal visualized pulmonary arteries. There is atherosclerotic tortuosity of the aortic arch and descending thoracic aorta. There are diffuse degenerative changes of the visualized thoracic spine. Normal visualized ribs, clavicles, and shoulders. There is no demonstrated abnormality of the visualized soft tissue structures of the upper abdomen. RAD/Chest 1 View (Portable) IMPRESSION: Stable appearance of the pleural parenchymal changes of the left lung base. Findings suggestive of mild degree of vascular congestion. Possible early infiltrate in the left upper lobe. Electronically Signed: Ronald Johnson, at 10:42 EST , Service support ,
--- NOTE | 2019-06-25 09:57 | CT_ITS ---
STUDY: CT SOFT TISSUE NECK WITHOUT CONTRAST REASON FOR EXAM: Male, 63 years old. Sore throat. Submental swelling. RADIATION DOSAGE (If Supplied By Facility): CTDIvol = ( 19.75 ) mGy, DLP = ( 507.90 ) mGycm TECHNIQUE: The patient was scanned in a multi-detector CT scanner. High resolution transaxial imaging was performed without the administration of intravenous contrast material. Sagittal and coronal images were reconstructed. Individualized dose optimization techniques were used for this CT. COMPARISON: None. FINDINGS: Atherosclerotic plaque formation of the aortic arch and the major cervical vessels. Atherosclerotic plaque formation at the carotid bifurcations bilaterally. Normal bilateral parotid glands. Normal bilateral crystal grower spaces. Normal bilateral parapharyngeal spaces. Normal bilateral carotid spaces. Normal bilateral sublingual and submandibular glands and spaces. Normal visualized nasopharynx. Normal retropharyngeal space. Normal perivertebral space. Normal visualized bilateral faucial tonsils. The visualized tongue, tongue base and oropharynx are normal. The visualized cervical lymph nodes (levels I-) are within normal size limits, and maintain normal morphology. There is no demonstrated solid or cystic mass lesion. Normal epiglottis, bilateral vallecula and hypopharynx. The pre-epiglottic and paraglottic adipose spaces are normal. Normal visualized bilateral piriform sinuses, aryepiglottic folds, vocal cords, and arytenoid-cricoid articulations. Normal subglottic trachea. Normal bilateral lobes of the thyroid gland. Small right pleural effusion. Normal visualized paranasal sinuses. There is degenerative changes of the cervical spine. CT/Soft Tissue Neck without Contr IMPRESSION: Atherosclerotic changes as described. No mass lesion is seen. Electronically Signed: Ronald Johnson, at 11:20 EST , Service support ,
[2019-06-25 10:40] LABS: Absolute Lymphocyte Count 1.07 X10^3/uL (0.83-4.51); Absolute Neutrophil Count 4.6 X10^3/uL (2.0-7.7); Basophil# 0.04 X10^3/uL; Basophil% 0.6 % (0-1); Eosinophil# 0.22 X10^3/uL; Eosinophils% 3.2 % (0-5); Hemoglobin 10.3 g/dL (13.0-16.5); Lymphocyte # 1.07 X10^3/ul (4.0); Lymphocyte % 15.8 % (19-41); Mean Corp Hgb Conc 32.2 g/dL (32-36); Mean Corpuscular Hgb 33.2 pg (27.0-32.0); Mean Corpuscular Volume 103.2 fL (80-94); Mean Platelet Vol. 10.4 fl (6.2-12.0); Monocyte# 0.79 X10^3/uL; Monocyte% 11.7 % (0-10); NRBC Flagged by Analyzer 0 % (0-5); Neutrophil # 4.63 X10^3/uL (2.7-7.7); Neutrophil % 68.4 % (47-70); Platelet Count 285 K/mm3 (150-450); RBC Distribution Width CV 17.1 % (11.6-14.6); RBC Distribution Width SD 63.9 fl (35.1-43.9); White Blood Count 6.8 K/mm3 (4.4-11.0)
[2019-06-25] MEDS: Acetaminophen 325 MG Tablet 650 MG PO (11:18)
[2019-06-25 11:36] LABS: Anion Gap 8 (5-15); BUN 21 mg/dL (7-18); BUN/Creat Ratio 5.7 RATIO (10-20); Calcium,Total 8.6 mg/dL (8.5-10.1); Chloride 98 mmol/L (98-107); EST Glomerular Filtration Rate 18 mL/min (>60); Est Glom Filt Rate - Afr Amer 22 mL/min (>60); Estimated Creatinine Clearance 20.97 ml/min; Glucose 98 mg/dL (74-106); Potassium 4.1 mmol/L (3.5-5.1); Sodium Level 134 mmol/L (136-145)
--- NOTE | 2019-06-25 11:44 | ED.VISSUMM ---
- ER Visit Summary Date of Service: 06/25/19 Chief Complaint: Swelling under chin History of Present Illness: The patient is a [address] Recio and Dr. Perez. He reports that he has swelling under his chin that began 2 days ago and is gradually gotten worse. He has an aching pain in the area that he had a 10 in severity. Is worsened by nothing. Is relieved by pain pills. States has had no relief with Tylenol. He denies any dental pain and reports that he does not have any teeth. He denies any fever or chills. Patient reports that this began after getting IV contrast for a CT of his abdomen pelvis prior to his last round of dialysis 2 days ago. He reports he has a chronic cough and shortness of breath that are unchanged. He denies any other complaints. Physical Examination: Vitals: Stable. Afebrile. General: Well-nourished and well-developed. Head: Normocephalic atraumatic. Dental: Edentulous. No evidence of intraoral abscess. No pharyngeal erythema or tonsillar exudate. Neck: Supple, no lymphadenopathy. No JVD. Moderate tenderness to palpation to a large amount of subcutaneous swelling in the submental region. There is no erythema, warmth, induration, or fluctuance. Cardiovascular: Regular rate and rhythm. No murmurs. Respiratory: No respiratory distress. Clear to auscultation bilaterally. Abdominal: Soft, nontender, nondistended, normal bowel sounds. No guarding, rebound, or peritoneal signs. Back: Nontender. Extremities: Nontender, no edema. Skin: Normal color, no rash. Neurologic: Alert and oriented ?3. Cranial nerves II through XII are intact. Normal strength and sensation. Psych: Normal affect. Test Results: CBC shows an H&H 10.3 and 32.0, segmented refills of 16, monocytes 12. Chem-7 shows a sodium 134, BUN of 21, creatinine 3.7. Clinical Impression(s) from Imaging Studies Chest X-Ray 06/25/19 09:53 IMPRESSION: Stable appearance of the pleural parenchymal changes of the left lung base. Findings suggestive of mild degree of vascular congestion. Possible early infiltrate in the left upper lobe. Electronically Signed: Ronald Johnson, at 10:42 EST , Service support , Soft Tissue Neck CT 06/25/19 09:57 IMPRESSION: Atherosclerotic changes as described. No mass lesion is seen. Electronically Signed: Ronald Johnson, at 11:20 EST , Service support , Emergency Department Course and Treatment: Had a prolonged scratch that the patient at this time I do not have an explanation for the swelling. He was treated with a dose of prednisone and doxycycline p.o. he is resting comfortably and would like to go home. Treatment Plan: We discussed the possibility of a pneumonia. Patient reports his cough is no different than usual. He will be placed on doxycycline to cover this and the potential of an infection that is not evident on his chin. He also be placed on prednisone and Zyrtec on the off chance that this is allergic. Is given a prescription for [place] for pain. Instructed to follow-up his primary care physician in 2 days for another exam. Return to the emergency department for any worsening symptoms. Disposition: To home in improved and stable condition. Impression: 1. Submental subcutaneous edema, uncertain cause. 2. End-stage renal disease. This note was generated with [employer] dictation software. It may contain incorrect words, spelling, and punctuation that were not noted in review of the chart prior to signing ED Disposition - Plan for ED Patient: Disposition: Home or Assisted Living Instructions: [employer] [employer] [facility]LL[employer], Unk Cause Prescriptions: Prednisone [Deltasone] 40 mg PO DAILY #10 tab Prescription Printed Doxycycline 100 mg PO BID #20 cap Prescription Printed Hydrocodone Bitart/Apap 5-325 [[place] 5MG-325MG] 1 tab PO Q4H PRN PRN 2 Days #10 tab PRN Reason: Pain Prescription Printed Cetirizine HCl [Zyrtec] 10 mg PO DAILY #14 cap Prescription Printed Referrals: Doron Recio MD [Primary Care Provider] - 1-2 Days if not improving
[2019-06-25] MEDS: predniSONE 20 MG Tablet 60 MG PO (11:52)
[2019-06-25 11:58] VITALS: BP 155/70; PULSE 77; RESP 16; O2SAT 94
== END 2019-06-25 12:03 | disposition home or self-care (01) ==
PROVIDERS: Emergency Provider Emergency Medicine; Family Provider Family Medicine; PCP Family Medicine
DX: R60.0 Localized edema (principal); I12.9 Hypertensive chronic kidney disease with stage 1 through stage 4 chronic kidney disease, or unspecified chronic kidney disease; N18.6 End stage renal disease; Z99.2 Dependence on renal dialysis; J44.9 Chronic obstructive pulmonary disease, unspecified; Z72.0 Tobacco use; E78.00 Pure hypercholesterolemia, unspecified; Z79.51 Long term (current) use of inhaled steroids; Z79.899 Other long term (current) drug therapy
CPT/HCPCS: 70490; 71045; 80048; 85025; 99284; A4216

== ENCOUNTER 2019-08-11 06:42 | Day surgery (SDC) | payer MEDICARE, MEDICAID, SELFPAY ==
[2019-07-26 09:08] VITALS: BMI 27.2
--- NOTE | 2019-07-26 09:39 | HP_ITS ---
Intake Vital Signs 07/26/19 Height 5 ft 9 in 07/26/19 Weight: 184 lb 8 oz 07/26/19 BMI 27.2 07/26/19 BP 136/70 H 07/26/19 Blood Pressure Location Rt brachial 07/26/19 Position Sitting 07/26/19 Respiration 20 H 07/26/19 Pulse 67 07/26/19 Pulse Source Monitor 07/26/19 Temp 98.1 F 07/26/19 Temp Source Oral 07/26/19 Pulse Oximetry (%) 96 07/26/19 Oxygen Delivery Method room air 07/26/19 BMI 27.0 Intake Visit Reasons: Decreased Flows Chief Complaint: Initial visit Household Coordinator Required: No Is patient in pain?: No Allergies Penicillins Allergy (Verified 07/26/19 09:10) Unknown Medications Lovastatin [Mevacor] 40 mg PO QHS 05/09/17 [History Confirmed 07/26/19] Tamsulosin HCl [Flomax] 0.4 mg PO DAILY 05/09/17 [History Confirmed 07/26/19] Diltiazem HCl [Diltiazem ER] 240 mg PO DAILY #30 capsule.er 02/23/19 [Rx Confirmed 07/26/19] nitroglycerin 0.4 mg sublingual tablet 0.4 mg SUBLINGUAL Q5-15M PRN #25 tab 04/22/19 [Rx Confirmed 07/26/19] Benzonatate 100 mg PO TID 05/03/19 [History Confirmed 07/26/19] Loratadine 10 mg PO DAILY 05/03/19 [History Confirmed 07/26/19] Sertraline HCl 50 mg PO DAILY 05/03/19 [History Confirmed 07/26/19] Acetaminophen [Tylenol Arthritis] 650 mg PO Q8H PRN PRN 05/12/19 [History Confirmed 07/26/19] Albuterol Sulfate [Ventolin Hfa] 2 puff INHALATION Q4H PRN PRN 05/12/19 [History Confirmed 07/26/19] Fluticasone/Salmeterol [Advair 250-50 Diskus] 1 inh PO BID 05/12/19 [History Confirmed 07/26/19] Ipratropium/Albuterol Sulfate [Duoneb] 3 ml INHALATION Q6H 05/12/19 [History Confirmed 07/26/19] metoprolol tartrate 25 mg tablet 75 mg PO BID #540 tab 06/09/19 [Rx Confirmed 07/26/19] Cetirizine HCl [Zyrtec] 10 mg PO DAILY #14 cap 06/25/19 [Rx Confirmed 07/26/19] Doxycycline 100 mg PO BID #20 cap 06/25/19 [Rx Confirmed 07/26/19] Prednisone [Deltasone] 40 mg PO DAILY #10 tab 06/25/19 [Rx Confirmed 07/26/19] PENDING SALE TO [facility] Medical History Persistent atrial fibrillation (Chronic) Atrial fibrillation with rapid ventricular response (Acute 04/2019) Alcoholic cardiomyopathy (Chronic) ESRD (end stage renal disease) on dialysis (Chronic) Benign hypertension (Chronic) Hyperlipidemia (Chronic) Nicotine dependence (Chronic) Alcohol addiction (Chronic) Adrenal adenoma (Chronic) BPH (benign prostatic hyperplasia) (Chronic) Back pain (Chronic) COPD (chronic obstructive pulmonary disease) (Chronic) Chronic renal failure, stage 4 (severe) (Chronic) Chronic serous otitis media of left ear (Chronic) Current drinker of alcohol (Chronic) Diverticulosis (Chronic) Hiatal hernia (Chronic) PKD (polycystic kidney disease) (Chronic) Cardiomyopathy in diseases classified elsewhere (Resolved) Problem with dialysis access (Resolved) Surgical History History of angioplasty of peripheral vessel (Resolved) Surgically constructed arteriovenous fistula (Resolved) Family History Mother Cancer brain Father Cancer throat Social History (Updated 07/26/19 @ 09:39 by Krystal Thomas PA-C) Smoking Status: Current every day smoker alcohol intake: current alcohol intake frequency: 3 or more drinks per day Alcohol type: beer HPI HPI HPI: ALEJA RICHARD, is a 63 M who presents to the office today for HPI HPI Surgical H&P: Yes HPI: ALEJA RICHARD, is a 63 M who presents to the office today for decreased flow rate. Patient states for the last several weeks he has been running on [employer]. Patient states he had a traumatic fall in April last year resulting in multiple fractures of the left forearm. He had plates and screws placed. No damage to the fistula was noted. Patient's last fistulogram was on 09/17/17 which demonstrated proximal venous stenosis. A 7 x 60 mm drug-coated balloon Lutonix angioplasty was performed. He denies any further intervention on the fistula since that time. He is not currently on a daily anticoagulant. He is an every day heavy smoker. He also consumes alcohol daily. ROS General General: No weight change, appetite, fatigue, colon cancer, breast cancer or weakness HEENT HEENT: No difficulty swallowing, eye injury, eye surgery, swollen glands or hoarseness Endo Endocrine: No thyroid disease, diabetes mellitus, thyroid cancer, Hair loss, heat intolerance or cold intolerance Skin Skin: No rash or changing moles Breast Breast: No left breast lump, right breast lump, nipple discharge, breast pain, abnormal mammogram, abnormal US or breast enlargement Musc Musculoskeletal: Yes back problems; no arthritis, rheumatoid arthritis, gout or joint pain Cardio Cardiovascular: Yes high blood pressure; no murmur, pacemaker, heart disease, atrial fibrillation, heart attack, heart stent, palpitations, shortness of breat with exertion or chest pain Psych Psychiatric: No depression, anxiety or hearing voices Resp Respiratory: No shortness of breath, No sleep apnea, Yes cough, Yes COPD, No asthma, No emphysema, No wheezing Gastro Gastrointestinal: No abdominal pain, No nausea or vomiting, No diarrhea, No constipation, No blood in stool, No acid reflux, No hemorrhoids, No ulcers, No gallbladder problem, No black,tarry stools Aaron Hematologic: Yes blood thinners, No blood disorders, No bleeding, No anemia, No blood clots Neuro Neurologic: No system reviewed and no additional complaints, except as docu, No as per HPI, No abnormal walking, No abnormal hearing, No abnormal movements, No abnormal speech, No behavioral changes, No burning sensations, No confusion, No seizure-like activity, No unsteadiness, No dizziness, No localized weakness, No frequent falls, No headache(s), No lack of coordination, No loss of vision, No memory loss, Yes numbness, No other visual disturbances, No radiating pain, No restless legs, No sensory deficit, No fainting, Yes tingling, No tremor(s), No weakness, No other Exam Const General: cooperative, comfortable, no acute distress [facility] Head: normal to inspection Eyes General: appearance normal, both eyes and all related structures Neck Neck: normal visual inspection Neck mass: No Chest Breast Palpation: No nipple discharge Resp Effort & Inspection: normal respiratory effort Auscultation: clear to auscultation bilaterally Cardio Rate: regular rate Rhythm: regular rhythm Heart Sounds: no murmurs GI Inspection: normal to inspection Palpation: soft Auscultation: normal bowel sounds Skin General: no rashes or lesions noted Neuro General: no focal motor deficits, CN's II-XI intact bilaterally Extrem Other: Left upper extremity AV fistula- good pulse, diminished bruit and thrill. Psych Appearance: grossly normal Affect: normal affect Assessment & Plan Problems 1. ESRD (end stage renal disease) on dialysis N18.6; Z99.[address] Galarza will plan to perform a left upper extremity fistulogram. Procedure details, risks and benefits have been explained. Patient has had the opportunity to ask and have questions answered. Patient verbally understands and agrees with the plan. Coding Level of Care Code Off vis,est,level 3 Diagnoses ESRD (end stage renal disease) on dialysis N18.6; Z99.2 07/26/19 0939 <Electronically signed by Krystal villagran PA-C> Date _ Krystal Thomas PA-C
[2019-08-10 11:20] VITALS: BMI 27.1
[2019-08-11 07:00] LABS: Hematocrit 32.7 % (40-54); Hemoglobin 10.6 g/dL (13.0-16.5); Mean Corp Hgb Conc 32.4 g/dL (32-36); Mean Corpuscular Hgb 32.7 pg (27.0-32.0); Mean Corpuscular Volume 100.9 fL (80-94); Mean Platelet Vol. 9.7 fl (6.2-12.0); Platelet Count 198 K/mm3 (150-450); RBC Distribution Width SD 59.6 fl (35.1-43.9); Red Blood Count 3.24 M/mm3 (4.6-6.2); White Blood Count 5.5 K/mm3 (4.4-11.0)
--- NOTE | 2019-08-11 07:07 | HP.PCM_ITS ---
Problem List (1) Problem with dialysis access Status: Acute Qualifiers: Encounter type: initial encounter Qualified Code(s): T82.898A - Other specified complication of vascular prosthetic devices, implants and grafts, initial encounter History and Physical Date of Admission: 08/11/19 Intake Visit Reasons: Decreased Flows Chief Complaint: Initial visit Rehabilitation Inspector Required: No Is patient in pain?: No Allergies Penicillins Allergy (Verified 07/26/19 09:10) Unknown Medications Lovastatin [Mevacor] 40 mg PO QHS 05/09/17 [History Confirmed 07/26/19] Tamsulosin HCl [Flomax] 0.4 mg PO DAILY 05/09/17 [History Confirmed 07/26/19] Diltiazem HCl [Diltiazem ER] 240 mg PO DAILY #30 capsule.er 02/23/19 [Rx Confirmed 07/26/19] nitroglycerin 0.4 mg sublingual tablet 0.4 mg SUBLINGUAL Q5-15M PRN #25 tab 04/22/19 [Rx Confirmed 07/26/19] Benzonatate 100 mg PO TID 05/03/19 [History Confirmed 07/26/19] Loratadine 10 mg PO DAILY 05/03/19 [History Confirmed 07/26/19] Sertraline HCl 50 mg PO DAILY 05/03/19 [History Confirmed 07/26/19] Acetaminophen [Tylenol Arthritis] 650 mg PO Q8H PRN PRN 05/12/19 [History Confirmed 07/26/19] Albuterol Sulfate [Ventolin Hfa] 2 puff INHALATION Q4H PRN PRN 05/12/19 [History Confirmed 07/26/19] Fluticasone/Salmeterol [Advair 250-50 Diskus] 1 inh PO BID 05/12/19 [History Confirmed 07/26/19] Ipratropium/Albuterol Sulfate [Duoneb] 3 ml INHALATION Q6H 05/12/19 [History Confirmed 07/26/19] metoprolol tartrate 25 mg tablet 75 mg PO BID #540 tab 06/09/19 [Rx Confirmed 07/26/19] Cetirizine HCl [Zyrtec] 10 mg PO DAILY #14 cap 06/25/19 [Rx Confirmed 07/26/19] Doxycycline 100 mg PO BID #20 cap 12/13/19 [Rx Confirmed 07/26/19] Prednisone [Deltasone] 40 mg PO DAILY #10 tab 06/25/19 [Rx Confirmed 07/26/19] [facility] Medical History Persistent atrial fibrillation (Chronic) Atrial fibrillation with rapid ventricular response (Acute 04/2019) Alcoholic cardiomyopathy (Chronic) ESRD (end stage renal disease) on dialysis (Chronic) Benign hypertension (Chronic) Hyperlipidemia (Chronic) Nicotine dependence (Chronic) Alcohol addiction (Chronic) Adrenal adenoma (Chronic) BPH (benign prostatic hyperplasia) (Chronic) Back pain (Chronic) COPD (chronic obstructive pulmonary disease) (Chronic) Chronic renal failure, stage 4 (severe) (Chronic) Chronic serous otitis media of left ear (Chronic) Current drinker of alcohol (Chronic) Diverticulosis (Chronic) Hiatal hernia (Chronic) PKD (polycystic kidney disease) (Chronic) Cardiomyopathy in diseases classified elsewhere (Resolved) Problem with dialysis access (Resolved) Surgical History History of angioplasty of peripheral vessel (Resolved) Surgically constructed arteriovenous fistula (Resolved) Family History Mother Cancer brain Father Cancer throat Social History (Updated 07/26/19 @ 09:39 by Krystal Thomas PA-C) Smoking Status: Current every day smoker alcohol intake: current alcohol intake frequency: 3 or more drinks per day Alcohol type: beer HPI HPI HPI: ALEJA RICHARD, is a 63 M who presents to the office today for HPI HPI Surgical H&P: Yes HPI: ALEJA RICHARD, is a 63 M who presents to the office today for decreased flow rate. Patient states for the last several weeks he has been running on [employer]. Patient states he had a traumatic fall in April last year resulting in multiple fractures of the left forearm. He had plates and screws placed. No damage to the fistula was noted. Patient's last fistulogram was on 09/17/17 which demonstrated proximal venous stenosis. A 7 x 60 mm drug-coated balloon Lutonix angioplasty was performed. He denies any further intervention on the fistula since that time. He is not currently on a daily anticoagulant. He is an every day heavy smoker. He also consumes alcohol daily. ROS General General: No weight change, appetite, fatigue, colon cancer, breast cancer or weakness HEENT HEENT: No difficulty swallowing, eye injury, eye surgery, swollen glands or hoarseness Endo Endocrine: No thyroid disease, diabetes mellitus, thyroid cancer, Hair loss, heat intolerance or cold intolerance Skin Skin: No rash or changing moles Breast Breast: No left breast lump, right breast lump, nipple discharge, breast pain, abnormal mammogram, abnormal US or breast enlargement Musc Musculoskeletal: Yes back problems; no arthritis, rheumatoid arthritis, gout or joint pain Cardio Cardiovascular: Yes high blood pressure; no murmur, pacemaker, heart disease, atrial fibrillation, heart attack, heart stent, palpitations, shortness of breat with exertion or chest pain Psych Psychiatric: No depression, anxiety or hearing voices Resp Respiratory: No shortness of breath, No sleep apnea, Yes cough, Yes COPD, No asthma, No emphysema, No wheezing Gastro Gastrointestinal: No abdominal pain, No nausea or vomiting, No diarrhea, No constipation, No blood in stool, No acid reflux, No hemorrhoids, No ulcers, No gallbladder problem, No black,tarry stools Aaron Hematologic: Yes blood thinners, No blood disorders, No bleeding, No anemia, No blood clots Neuro Neurologic: No system reviewed and no additional complaints, except as docu, No as per HPI, No abnormal walking, No abnormal hearing, No abnormal movements, No abnormal speech, No behavioral changes, No burning sensations, No confusion, No seizure-like activity, No unsteadiness, No dizziness, No localized weakness, No frequent falls, No headache(s), No lack of coordination, No loss of vision, No memory loss, Yes numbness, No other visual disturbances, No radiating pain, No restless legs, No sensory deficit, No fainting, Yes tingling, No tremor(s), No weakness, No other Exam Const General: cooperative, comfortable, no acute distress [facility] Head: normal to inspection Eyes General: appearance normal, both eyes and all related structures Neck Neck: normal visual inspection Neck mass: No Chest Breast Palpation: No nipple discharge Resp Effort & Inspection: normal respiratory effort Auscultation: clear to auscultation bilaterally Cardio Rate: regular rate Rhythm: regular rhythm Heart Sounds: no murmurs GI Inspection: normal to inspection Palpation: soft Auscultation: normal bowel sounds Skin General: no rashes or lesions noted Neuro General: no focal motor deficits, CN's II-XI intact bilaterally Extrem Other: Left upper extremity AV fistula- good pulse, diminished bruit and thrill. Psych Appearance: grossly normal Affect: normal affect Assessment & Plan Problems 1. ESRD (end stage renal disease) on dialysis N18.6; Z99.[address] Nova will plan to perform a left upper extremity fistulogram. Procedure details, risks and benefits have been explained. Patient has had the opportunity to ask and have questions answered. Patient verbally understands and agrees with the plan. Coding Level of Care Code Off vis,est,level 3 Diagnoses ESRD (end stage renal disease) on dialysis N18.6; Z99.2 07/26/19 0939 <Electronically signed by Krystal villagran PA-C> Date _ I anticipate using ultrasound to access the fistula antegrade with flow anticipating a venous outflow obstruction Pavel Nova M.D., F.A.C.S.
[2019-08-11 07:17] LABS: Anion Gap 8 (5-15); BUN 22 mg/dL (7-18); BUN/Creat Ratio 6.1 RATIO (10-20); Calcium,Total 8.3 mg/dL (8.5-10.1); Chloride 93 mmol/L (98-107); Creatinine, Serum 3.62 mg/dL (0.70-1.30); EST Glomerular Filtration Rate 18 mL/min (>60); Est Glom Filt Rate - Afr Amer 22 mL/min (>60); Estimated Creatinine Clearance 21.43 ml/min; Glucose 91 mg/dL (74-106); Potassium 4.5 mmol/L (3.5-5.1); Sodium Level 129 mmol/L (136-145)
--- NOTE | 2019-08-11 09:36 | PCM.OPRPT ---
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 Surgery/Procedure Performed:: Double access left upper extremity fistulogram with 7 x 40 mm ConQuest angioplasty Description of Surgical Findings:: Timeout and informed consent was obtained. 63-year-old male was taken to the specials procedure lab and placed on the table. He received 50 mcg of fentanyl milligram Versed. I initially used ultrasound gain antegrade access to the fistula close to the antecubital space. 2% lidocaine was instilled under ultrasound guidance micropuncture needle inserted micropuncture wire inserted 6 [place] short sheath dilator inserted using Isovue contrast fistulogram was taken of the upper arm and shoulder area. This suggested possible very central cephalic vein outflow stenosis. Difficult to assess because of overlapping tissue. I placed a 7 x 4 ConQuest balloon and balloon angioplasty performed. There appeared to be minimal reaction in that location. Follow-up imaging demonstrated no significant change. Then try to obtain a retrograde view but because of the size of the aneurysmal change of the fistula was was unable to. So I then gain retrograde access to the fistula using 2% local micropuncture needle and a 6 [place] short of the dilator. I was able to get a 035 Glidewire and a 4 [place] glide cath into the brachial artery proximal to the anastomosis. Fistulogram was obtained. This demonstrated diffuse stenosis mild of the proximal 6 cm of the vein portion of the fistula with 1 area of 70% stenosis. I reintroduced the 7 x 40 mm ConQuest performed balloon angioplasty 2 locations and then final fistulogram demonstrated resolution of the area of stenosis. Sheaths were removed U sutures of 4-0 nylon was placed. He tolerated procedure well. There was a good pulse thrill and bruit at the completion no apparent complication. Specimens none. Drains none. Blood loss minimal. Fistulogram demonstrates a left upper arm brachiocephalic AV fistula. There is diffuse aneurysmal change in the midportion of the fistula at 2 lobulated areas. The remainder of the upper arm fistula appears unremarkable at the very proximal cephalic junction there appeared to be some stenosis but that ended up not being clinically significant. There was clinical significant 70% stenosis of the proximal portion of the fistula at about 6 to 7 cm from the anastomosis. This resolved with angioplasty. Pavel Nova M.D., F.A.C.S. Type of Anesthesia:: IV Sedation, Local
== END 2019-08-11 10:45 | disposition home or self-care (01) ==
PROVIDERS: PCP Family Medicine; Referring Provider Surgery; Visit Provider Surgery
DX: T82.898A Other specified complication of vascular prosthetic devices, implants and grafts, initial encounter (principal); I12.9 Hypertensive chronic kidney disease with stage 1 through stage 4 chronic kidney disease, or unspecified chronic kidney disease; N18.6 End stage renal disease; I48.19 Other persistent atrial fibrillation; E78.5 Hyperlipidemia, unspecified; N40.0 Benign prostatic hyperplasia without lower urinary tract symptoms; J44.9 Chronic obstructive pulmonary disease, unspecified; F17.200 Nicotine dependence, unspecified, uncomplicated; F10.20 Alcohol dependence, uncomplicated; Z99.2 Dependence on renal dialysis; Z79.51 Long term (current) use of inhaled steroids; Z79.52 Long term (current) use of systemic steroids; Z79.899 Other long term (current) drug therapy
CPT/HCPCS: 36415; 36902; 76937; 80048; 85027; 99152; 99153; Q9967; C1725; C1769

== ENCOUNTER 2019-09-18 17:57 | Emergency (ER) | payer MEDICARE, MEDICAID, SELFPAY ==
[2019-08-10 11:20] VITALS: BMI 27.1
[2019-09-18 17:58] VITALS: BP 111/61; PULSE 77; RESP 18; TEMP 36.4; O2SAT 94; BMI 27.3
--- NOTE | 2019-09-18 18:21 | EKG12_ITS ---
Test Reason : SOB Blood Pressure : / mmHG Vent. Rate : 074 BPM Atrial Rate : 074 BPM P-R Int : 208 ms QRS Dur : 092 ms QT Int : 470 ms P-R-T Axes : 043 026 039 degrees QTc Int : 521 ms Normal sinus rhythm Nonspecific T wave abnormality Prolonged QT Abnormal ECG Confirmed by GONZALO CERVANTES, CARA ([id number]), map editor BENTON CONRAD ([id number]) on 09/20/2019 3:16:16 PM Referred By: SUNDAR Confirmed By:CARA SÁNCHEZ MD
--- NOTE | 2019-09-18 18:22 | ED.VISSUMM ---
- ER Visit Summary Date of Service: 09/18/19 Chief Complaint: Shortness of breath History of Present Illness: The patient is a 64 M who presents with shortness of breath and cough that is been getting worse over the past several days. Patient also complains of right upper abdominal and right side pain that has also been getting worse. Patient states nothing makes the pain better or worse. Patient denies any nausea or vomiting. Patient denies any dysuria or hematuria. Patient states he has been having a cough but is unable to produce any sputum. Patient admits to rhinorrhea. Patient denies any chest pain. Patient denies any fevers or chills. Patient has a history of COPD. Physical Examination: Vital signs are stable. Patient is afebrile. Patient is in no acute distress. Oral mucosa is pink and moist. Neck is supple. Trachea is midline. There is no JVD. Heart was regular rate and rhythm. Lungs showed diffuse expiratory wheezing and rhonchi. There is adequate respiratory effort noted. Abdomen is soft. Bowel sounds are normal. There is some mild right flank tenderness. There is no rebound or guarding noted. Cranial nerves II through XII are intact. There are no focal motor or sensory deficits noted. Test Results: EKG showed sinus rhythm with a rate of 74. There are nonspecific ST-T wave changes. There are no acute changes. CBC shows a mild anemia with hemoglobin of 10.2 hematocrit 31.8. Basic metabolic profile showed a elevated creatinine of 3.24 and BUN of 22. These were stable compared to previous results. Troponin was normal. PA and lateral chest x-ray was obtained. There is no acute cardiopulmonary process on my interpretation. CT scan of the abdomen pelvis was obtained. I do not see any renal calculi on my interpretation. Emergency Department Course and Treatment: Patient was given a DuoNeb and prednisone here. Patient did not want to wait for results of his chest x-ray and CT scan. Patient left prior to completing treatment. Patient did not sign any papers. His IV was discontinued prior to him leaving. Disposition: Eloped Impression: Dyspnea This note was generated with Elastra dictation software. It may contain incorrect words, spelling, and punctuation that were not noted in review of the chart prior to signing ED Disposition - Plan for ED Patient: Disposition: Against Medical Advice Diagnosis: Dyspnea Referrals: Doron Recio MD [Primary Care Provider] -
--- NOTE | 2019-09-18 18:25 | CT_ITS ---
STUDY: CT ABDOMEN AND PELVIS WITHOUT CONTRAST REASON FOR EXAM: Male, 64 years old. RIGHT FLANK PAIN STARTED 2 DAYS AGO, END STAGE RENAL DISEASE, POLYCYSTIC KIDNEYS, BPH, HIATAL HERNIA RADIATION DOSAGE (If Supplied By Facility): CTDIvol = ( 14.15 ) mGy, DLP = ( 731.68 ) mGycm TECHNIQUE: Transaxial images were obtained from the dome of the diaphragm to the symphysis pubis without oral contrast, and without intravenous contrast. Sagittal and coronal images were reconstructed. Individualized dose optimization techniques were used for this CT. COMPARISON: 06/23/2019 FINDINGS: Small bilateral pleural effusions with bibasilar atelectasis. The visualized portions of the heart are within normal limits. No change in multiple hepatic cysts. Normal gallbladder and extrahepatic biliary system. Normal spleen. Normal pancreas. Normal right adrenal gland. No change in the 3 cm mass of decreased attenuation (3 Hounsfield units) of the left adrenal gland consistent with an adenoma. Markedly enlarged kidneys with innumerable cysts of varying sizes including some hyperdense cysts consistent with autosomal dominant polycystic kidney disease. Normal visualized stomach. Normal small intestine. There are multiple colonic diverticula consistent with diverticulosis. The appendix is visualized and appears normal. There is diffuse atherosclerotic calcification of the abdominal aorta, without a demonstrated aneurysm. Normal inferior vena cava. Normal retroperitoneum. Normal urinary bladder. There is a right-sided inguinal hernia containing adipose tissue. Multiple chronic wedge compression fractures lumbar spine are unchanged. CT/Abdomen/Pelvis without Cont IMPRESSION: No acute abnormality. Autosomal dominant polycystic kidney disease with end-stage kidneys with small bilateral pleural effusions and bibasilar atelectasis. Electronically Signed: Francisco Begum MD at 20:14 EST Tel , Service support ,
[2019-09-18] MEDS: Ipratropium/Albuterol Sulfate 3 ML AMPUL.NEB INHALATION (18:33)
[2019-09-18 18:34] VITALS: PULSE 78; RESP 16
[2019-09-18 18:38] LABS: Absolute Lymphocyte Count 1.17 X10^3/uL (0.83-4.51); Absolute Neutrophil Count 4.4 X10^3/uL (2.0-7.7); Basophil# 0.03 X10^3/uL; Basophil% 0.4 % (0-1); Eosinophil# 0.49 X10^3/uL; Eosinophils% 7.2 % (0-5); Hematocrit 31.8 % (40-54); Hemoglobin 10.2 g/dL (13.0-16.5); Lymphocyte # 1.17 X10^3/ul (4.0); Lymphocyte % 17.2 % (19-41); Mean Corp Hgb Conc 32.1 g/dL (32-36); Mean Corpuscular Hgb 32.4 pg (27.0-32.0); Mean Platelet Vol. 9.1 fl (6.2-12.0); Monocyte# 0.75 X10^3/uL; NRBC Flagged by Analyzer 0 % (0-5); Neutrophil # 4.36 X10^3/uL (2.7-7.7); Neutrophil % 63.9 % (47-70); Platelet Count 192 K/mm3 (150-450); RBC Distribution Width CV 16.2 % (11.6-14.6); RBC Distribution Width SD 59.4 fl (35.1-43.9); Red Blood Count 3.15 M/mm3 (4.6-6.2); White Blood Count 6.8 K/mm3 (4.4-11.0)
[2019-09-18] MEDS: predniSONE 20 MG Tablet 60 MG PO (18:43)
--- NOTE | 2019-09-18 18:54 | RAD_ITS ---
STUDY: X-RAY CHEST REASON FOR EXAM: Male, 64 years old. DYSPNEA, COUGH -- PT HX OF COPD, ALCOHOLIC CARDIOMYOPATHY AND ON DIALYSIS TECHNIQUE: Frontal and lateral views of the chest. COMPARISON: 06/25/2019. FINDINGS: Mild increased density seen in both lung bases, suggestive of mild scarring and/or subsegmental atelectasis. Trace pleural effusion suggested. Normal size heart. Normal mediastinum and ania. Normal visualized pulmonary arteries. Normal visualized aortic arch and descending thoracic aorta. Normal visualized thoracic spine. Normal visualized ribs, clavicles, and shoulders. There is no demonstrated abnormality of the visualized soft tissue structures of the upper abdomen. RAD/Chest PA and Lateral IMPRESSION: Possible mild subsegmental atelectasis or scarring in the lung bases. Trace pleural effusions. Electronically Signed: Rishabh Hernandez MD at 20:21 EST , Service support ,
[2019-09-18 18:56] VITALS: BP 123/56; PULSE 72; RESP 18; O2SAT 96
[2019-09-18 18:57] LABS: ALB/GLOB Ratio 0.8 RATIO (0.9-2.4); AST(SGOT) 12 U/L (15-37); Alanine Aminotransfer ALT/SGPT 20 U/L (16-61); Albumin, Serum 2.9 g/dL (3.2-5.0); Alkaline Phosphatase 99 U/L (45-117); Anion Gap 11 (5-15); BUN 22 mg/dL (7-18); BUN/Creat Ratio 6.8 RATIO (10-20); Chloride 95 mmol/L (98-107); Creatinine, Serum 3.24 mg/dL (0.70-1.30); EST Glomerular Filtration Rate 21 mL/min (>60); Est Glom Filt Rate - Afr Amer 25 mL/min (>60); Estimated Creatinine Clearance 23.64 ml/min; Globulin 3.6 g/dL (2.2-4.2); Glucose 88 mg/dL (74-106); Potassium 3.6 mmol/L (3.5-5.1); Protein, Total 6.5 g/dL (6.4-8.2); Sodium Level 132 mmol/L (136-145)
[2019-09-18 20:00] VITALS: BP 113/61; PULSE 74; RESP 20; O2SAT 93
--- NOTE | 2019-09-18 20:04 | ED.RN ---
PT STATES I CAN'T STAY IN THIS ROOM, TAKE MY IV OUT SO I CAN LEAVE. ATTEMPTED TO REASON WITH PT AND GET PT TO STAY AND WAIT FOR RESULTS. PT REFUSED. IV REMOVED. DR. LYNCH AWARE. PT AMBULATED OUT OF ED, GAIT STEADY.
== END 2019-09-18 20:07 | disposition left against medical advice (07) ==
LOC: ED 18:42
PROVIDERS: Emergency Provider Emergency Medicine; PCP Family Medicine
DX: R06.00 Dyspnea, unspecified (principal); J44.9 Chronic obstructive pulmonary disease, unspecified; I10 Essential (primary) hypertension; Z72.0 Tobacco use; Z79.51 Long term (current) use of inhaled steroids; Z79.899 Other long term (current) drug therapy
CPT/HCPCS: 71046; 74176; 80053; 84484; 85025; 93005; 94640; 99283; A4216

== ENCOUNTER → 2019-12-22 | Outpatient (CLI) | payer MEDICARE, MEDICAID, SELFPAY ==
[2019-12-15 05:37] VITALS: BMI 25.9
--- NOTE | 2019-12-22 08:53 | CT_ITS ---
STUDY: LOW DOSE CT LUNG CANCER SCREENING REASON FOR EXAM: Male, 64 years old. 1.5 PPD X 40 + YEARS. COPD RADIATION DOSAGE (If Supplied By Facility): CTDIvol = ( 3.02 ) mGy, DLP = ( 98.17 ) mGycm TECHNIQUE: No contrast was administered. Low dose technique was utilized (average mAS-38 and kVp 120). 1.25 mm axial source images with a slice interval of 1.25-mm were reconstructed in lung windows. 2.5 mm axial source images with a slice interval of 2.5-mm were reconstructed in lung windows. 5.0 mm axial source images with a slice interval of 5.0-mm were reconstructed in soft tissue windows. Nodule measured using lung windows on PACS and/or independent workstation with automated measurement of minimum and maximum diameter. Nodule measurement reported as average diameter rounded to the nearest whole number. Growth is defined as an increase ins size of greater than 1.5 mm. COMPARISON: None. NODULES: No suspicious nodules are seen. Emphysema: Mild degree of emphysematous changes with a small bulla in the right upper lobe. There is evidence of infiltration in the left lower lobe with some volume loss. There is evidence of bronchiectasis. This may represent chronic infiltration and possible rounded atelectasis. Aorta: Atherosclerotic plaque formation of the thoracic aorta and aortic arch. Coronary arteries: Coronary artery calcification. Heart: Cardiomegaly. Mediastinal nodes: Small mediastinal benign-appearing lymph nodes. Other chest and abdominal findings: Spondylosis and disc space narrowing throughout the dorsal spine. Stable cystic changes in the upper aspect of the liver. CT/Low Dose CT Lung Screening IMPRESSION: Lung-RADS category 3 - Continue screening with LDCT in 6 months. IMPORTANT NOTES FOR USE: ACR Lung-RADS Version 1.0 Assessment Categories Release Date: November 08, 2013 Category: Coded 0-4 bases on nodule(s) with highest degree of suspicion. Negative screen is defined as categories 1 and 2; a positive screen is defined as categories 3 and 4. Category 3 and 4A nodules that are unchanged on interval CT should be coded as category 2, and individuals returned to screening in 12 months. Category 4X: Category 3 or 4 nodules with additional imaging findings that increase the suspicion of lung cancer, such as spiculation, GGN that doubles in size in 1 year, enlarged lymph notes, etc. Category Modifiers: S (significant finding unrelated to lung cancer) and C (prior history of treated lung cancer) may be added to the 0-4 Lung-RADS Electronically Signed: Ronald Johnson, at 9:58 EDT , Service support ,
[2019-12-22 09:30] VITALS: PULSE 69; PULSE 72; PULSE 73; PULSE 75; PULSE 77; PULSE 80; O2SAT 94; O2SAT 95; O2SAT 97; O2SAT 98
--- NOTE | 2019-12-22 13:15 | PCM.PSN.6M ---
PSN 6 Minute Walk Test - 6 Minute Walk Test 6 Minute Walk Test: 6 Minute Walk Test PSN:6-Minute Walk Test Start: 12/22/19 09:37 Freq: Status: Active Protocol: [id number] Document 12/22/19 09:30 EW (Rec: 12/22/19 09:41 EW [id number]) 6 Minute Walk Test Date Performed 12/22/19 Time Performed 09:00 Height 5 ft 9 in Weight: 81.647 kg Weight in Pounds 180.[address]: Gee Machado Assistive device used: None Pre-test Oxygen Delivery Method Room Air Pulse Ox (%) 97 Pulse Rate (60-100 beats/min) 69 Dyspnea Juan Scale (0-10) 2 Exertion Juan Scale (6-20) 8 1st minute Oxygen Delivery Method Room Air Pulse Ox (%) 97 Pulse Rate (60-100 beats/min) 72 2nd minute Oxygen Delivery Method Room Air Pulse Ox (%) 94 Pulse Rate (60-100 beats/min) 75 Number of Rests Taken 1 3rd minute Oxygen Delivery Method Room Air Pulse Ox (%) 94 Pulse Rate (60-100 beats/min) 73 Number of Rests Taken 1 4th minute Oxygen Delivery Method Room Air Pulse Ox (%) 97 Pulse Rate (60-100 beats/min) 75 5th minute Oxygen Delivery Method Room Air Pulse Ox (%) 95 Pulse Rate (60-100 beats/min) 77 6th minute Oxygen Delivery Method Room Air Pulse Ox (%) 95 Pulse Rate (60-100 beats/min) 80 Post-test Oxygen Delivery Method Room Air Pulse Ox (%) 98 Pulse Rate (60-100 beats/min) 75 Dyspnea Juan Scale (0-10) 4 Exertion Juan Scale (6-20) 14 Full Laps Walked 10 Partial Lap, Number of Tiles Walked 28 Total Distance Walked (ft) 618 - Interpretation Interpretation: The patient was able to ambulate 618 feet over the course of 6 minutes on room air with no assistive devices and 2 breaks. There was no significant desaturation or tachycardia during testing. These findings are consistent with a musculoskeletal limitation exercise tolerance. - Recommendations Recommendations: No supplemental oxygen is indicated at this time.
== END | disposition home or self-care (01) ==
LOC: PSN 08:53
PROVIDERS: PCP Family Medicine; Referring Provider Internal Medicine Critical Care Medicine; Visit Provider Internal Medicine Critical Care Medicine
DX: F17.210 Nicotine dependence, cigarettes, uncomplicated (principal); J44.9 Chronic obstructive pulmonary disease, unspecified; R06.02 Shortness of breath; Z12.2 Encounter for screening for malignant neoplasm of respiratory organs
CPT/HCPCS: 94618; G0297

== ENCOUNTER → 2020-02-28 | Outpatient (CLI) | payer MEDICARE, MEDICAID, SELFPAY ==
[2019-12-28 09:48] VITALS: BMI 26.0
[2020-02-15 11:34] VITALS: BMI 27.8
--- NOTE | 2020-02-28 10:21 | STE_ITS ---
Reason For Study: DYSPNEA/SOB Stress Results Protocol: Dobutamine Stress Maximum Predicted HR: 158 bpm Target HR: 134 bpm % Maximum Predicted HR: 67 % DurationHeart Rate Stage (mm:ss) (bpm) BP Dose Comment BASELINE 67 138/72 STAGE 1 3:14 68 142/8410.00 STAGE 2 3:00 78 160/7820.00 STAGE 3 3:00 80 160/8430.000.5MG ATROPINE STAGE 4 5:28 106 170/9040.000.5 MG ATROPINE RECOVERY 84 150/72 Stress Duration: 14:42 mm:ss Maximum Stress HR: 106 bpm Baseline Echocardiogram Findings Stress Echo Wall motion Data Resting WM Intermediate WM Stress WM Interpretation Summary 64-year-old male with a history of cardiomyopathy, hypertension, polycystic kidney disease. Stress EKG. Resting EKG demonstrates normal sinus rhythm with a rate of 66 bpm normal intervals are noted resting blood pressure is 138/72 mmHg. Dobutamine was infused starting at 10 mcg/kg/min increasing in 10 mcg aliquots every 3 minutes with a total of 1 mg of intravenous atropine administered 10.5 mg aliquots. Continuous EKG monitoring was performed. The maximum heart rate was 106 bpm which was 67% of max impacted heart rate the maximum workload was 1 metabolic equivalent. At rest there were no ST or T wave changes noted suggest ischemia at peak infusion nonspecific ST-T wave changes are noted. The resting blood pressure is 138/72 with a peak blood pressure 170/90 mmHg. No clinical angina was noted. Stress echocardiographic images. Resting echocardiogram demonstrates moderately severe reduction in ventricular systolic function estimated at 27%; during low dose and peak there was improvement in the left ventricular function. The peak estimated ejection fraction was noted to be 30% with global hypokinesis noted. No wall motion abnormalities were noted to suggest ischemia. Conclusion: Cardiomyopathy. No obvious ischemia noted with a dobutamine stress enhancement.. Ordering Physician: Iban Valdez Referring Physician: Iban Valdez Performed By: Mabel Tyler, RDCS, RVT
== END | disposition home or self-care (01) ==
LOC: CVS 10:21
PROVIDERS: PCP Family Medicine; Referring Provider Internal Medicine Cardiovascular Disease; Visit Provider Internal Medicine Cardiovascular Disease
DX: I42.6 Alcoholic cardiomyopathy (principal); M79.603 Pain in arm, unspecified; R06.02 Shortness of breath; R06.00 Dyspnea, unspecified
CPT/HCPCS: 93017; 93350; J7040; A4216

== ENCOUNTER → 2020-03-03 | Outpatient (CLI) | payer MEDICARE, MEDICAID, SELFPAY ==
[2020-02-15 11:34] VITALS: BMI 27.8
--- NOTE | 2020-03-03 08:38 | RAD_ITS ---
STUDY: X-RAY - LUMBAR SPINE REASON FOR EXAM: Male, 64 years old. Chronic back pain. No history of injury. TECHNIQUE: 3 view(s) of the lumbar spine were obtained. COMPARISON: None FINDINGS: There is straightening of the normal lumbar lordosis. There is no substantial scoliosis. There is a normal alignment of the vertebrae. There is mild anterior wedging of L1 vertebra. There is mild depression of the superior endplate of L2. There is also depression of the superior endplate of L5.. Normal disc space heights. Anterior degenerative osteophyte formations are noted at multiple levels. There is no demonstrated spondylolysis of the pars interarticulares. There is atherosclerotic calcification of the abdominal aorta without a demonstrated aneurysm. RAD/Lumbar Spine 2 or 3 Views IMPRESSION: 1. Mild compression fractures of L1, L2 and L5 vertebrae of undetermined age and could be old. 2. Multilevel degenerative changes. 3. If clinically indicated, further evaluation with MRI of the lumbar spine is recommended. Electronically Signed: Dmitri Dobbins MD at 9:33 EDT Tel , Service support ,
== END | disposition home or self-care (01) ==
LOC: LAB 08:06
PROVIDERS: PCP Family Medicine; Referring Provider Anesthesiology Pain Medicine; Visit Provider Anesthesiology Pain Medicine
DX: M54.5 Low back pain (principal); F11.20 Opioid dependence, uncomplicated
CPT/HCPCS: 36415; 72100

== ENCOUNTER → 2020-03-07 | Outpatient (CLI) | payer MEDICARE, MEDICAID, SELFPAY ==
[2020-02-15 11:34] VITALS: BMI 27.8
== END | disposition home or self-care (01) ==
PROVIDERS: PCP Family Medicine
DX: J44.9 Chronic obstructive pulmonary disease, unspecified (principal); J02.9 Acute pharyngitis, unspecified; R19.7 Diarrhea, unspecified; R50.9 Fever, unspecified; Z20.828 Contact with and (suspected) exposure to other viral communicable diseases
CPT/HCPCS: 87635; 94799; U0003

== ENCOUNTER → 2020-04-05 | Outpatient (CLI) | payer MEDICARE, MEDICAID, SELFPAY ==
[2020-04-05 05:43] VITALS: BMI 27.3
== END | disposition home or self-care (01) ==
LOC: PSN 09:17
PROVIDERS: PCP Family Medicine; Referring Provider Internal Medicine Critical Care Medicine; Visit Provider Internal Medicine Critical Care Medicine
DX: J47.9 Bronchiectasis, uncomplicated (principal)
CPT/HCPCS: 94667

== ENCOUNTER → 2020-06-30 | Outpatient (CLI) | payer MEDICARE, MEDICAID, SELFPAY ==
[2020-06-30 09:42] VITALS: BMI 30.8
== END | disposition home or self-care (01) ==
LOC: LABSPEC 11:33
PROVIDERS: PCP Family Medicine; Referring Provider Nurse Practitioner Acute Care; Visit Provider Nurse Practitioner Acute Care
DX: J47.9 Bronchiectasis, uncomplicated (principal)
CPT/HCPCS: 87070; 87077; 87205

== ENCOUNTER 2020-08-16 21:54 | Emergency (ER) | payer MEDICARE, MEDICAID, SELFPAY ==
[2020-06-30 09:42] VITALS: BMI 30.8
[2020-08-16 21:56] VITALS: PULSE 89; RESP 18; TEMP 36.7; O2SAT 100; BMI 32.4
[2020-08-16 22:01] VITALS: BP 114/63; PULSE 89; RESP 18; TEMP 36.7; O2SAT 100; O2SAT 99
[2020-08-16 22:05] VITALS: BP 114/63
[2020-08-16 22:09] VITALS: BP 114/63; PULSE 89; RESP 18; TEMP 36.7; O2SAT 100
--- NOTE | 2020-08-16 22:16 | EKG12_ITS ---
Test Reason : SOB Blood Pressure : / mmHG Vent. Rate : 080 BPM Atrial Rate : 258 BPM P-R Int : 000 ms QRS Dur : 098 ms QT Int : 424 ms P-R-T Axes : 000 049 033 degrees QTc Int : 489 ms Atrial fibrillation Nonspecific ST and T wave abnormality Prolonged QT Abnormal ECG Confirmed by MARIA DOLORES CERVANTES, ALEJA ([id number]), book editor RISA TEAGUE ([id number]) on 08/18/2020 11:09:36 AM Referred By: GINO Confirmed By:ALEJA WHITTEN MD
--- NOTE | 2020-08-16 22:17 | ED.VIS.GEN ---
History of Present Illness Chief Complaint: Shortness of Breath Narrative: Patient is a 64-year-old male who has not felt well for about 1 week. He complains of generalized malaise. He complains of severe nausea without vomiting. No fevers. He complains of itching watering burning eyes. No congestion rhinorrhea or sore throat. He has a chronic cough which is at his baseline. He does complain of increased shortness of breath from baseline. He denies any pain. No vomiting. He has loose stools but not martha diarrhea. Past Medical History - Allergies and Home Meds Allergies/Adverse Reactions: Allergies Penicillins Allergy (Verified 08/16/20 22:01) Unknown Primary Care Physician: Doron Recio MD [Primary Care Provider] - Past Medical History: - - Hypertension, hyperlipidemia, end-stage renal disease on hemodialysis, COPD on home O2 Surgical History: - - AVF left upper arm Smoking Status: Current every day smoker - Family History Paternal Family History: Family History (Last Reviewed 06/30/20 @ 10:18 by Shabnam Peterson NP, [employer]) Mother Cancer Father Cancer Family History: Reports: Cancer Sibling Family History: Family History (Last Reviewed 06/30/20 @ 10:18 by Shabnam Peterson NP, [employer]) Mother Cancer Father Cancer Family History: Reports: Renal Disease Maternal Family History: Family History (Last Reviewed 06/30/20 @ 10:18 by Shabnam Peterson NP, [employer]) Mother Cancer Father Cancer Family History: Reports: Cancer Review of Systems All systems negative except as indicated General: Reports: Malaise. Denies: Fever Eyes: Reports: - - Bilateral eye itching watering and burning Cardiovascular: Denies: Chest pain Respiratory: Reports: Dyspnea, Cough. Denies: Sputum Gastrointestinal: Reports: Nausea. Denies: Abdominal pain, Vomiting, Diarrhea Musculoskeletal: Denies: Myalgias, Arthralgias Skin: Denies: Rash Neurological: Denies: Headache Allergy: Denies: Uticaria Physical Exam Vital Signs/Narrative: Vital Signs Temp Pulse Resp BP Pulse Ox 08/16/20 22:09 98.1 F 89 18 114/63 100 08/16/20 22:05 114/63 08/16/20 22:01 98.1 F 89 18 114/63 100 08/16/20 21:56 98.1 F 89 18 100 Inital Vital Signs reviewed: Yes General: Obese Head: Normocephalic Eyes: EOMI ENT: Moist mucous membranes Neck: Supple Cardiovascular: Regular rate, Regular rhythm Respiratory: - - Diffuse bilateral wheezing and rhonchi Abdomen: Soft, Nontender, Nondistended Skin: Normal color Neurological: Alert Psychological: Normal affect Diagnostic/Tx/Re-eval Impressions Chest X-Ray 08/16/20 23:00 IMPRESSION: Subtle density right lung base which may represent a lung nodule. Correlate with noncontrast CT. Hyperinflation. Electronically Signed: Montez Daigle MD at 23:20 EST , Service support , 08/16/20 23:00 Chest 1 View (Portable) [RAD] Stat 08/16/20 22:10 Mucosa - Nasopharyngeal SARS-CoV-2 Antigen (Rapid) - Final Laboratory Results 08/16/20 08/16/20 22:10 22:10 WBC 6.4 RBC 3.21 L Hgb 10.7 L Hct 31.7 L MCV 98.8 H MCH 33.3 H MCHC 33.8 RDW Std Deviation 51.5 H RDW Coeff of Karl 14.3 Plt Count 290 MPV 9.5 Immature Gran % (Auto) 0.300 Neut % (Auto) 52.1 Lymph % (Auto) 22.4 [place] % (Auto) 13.4 H Eos % (Auto) 10.9 H Baso % (Auto) 0.9 Absolute Neuts (auto) 3.3 Absolute Lymphs (auto) 1.44 Nucleated RBC % 0 Sodium 125 L Potassium 4.5 Chloride 87 L Carbon Dioxide 28.0 Anion Gap 10 BUN 26 H Creatinine 7.36 H Estim Creat Clear Calc 10.41 Est GFR (MDRD) Af Amer 10 L Est GFR (MDRD) Non-Af 8 L BUN/Creatinine Ratio 3.5 L Glucose 97 Calcium 9.1 Total Bilirubin 0.50 AST 21 ALT 22 Alkaline Phosphatase 128 H Troponin I < 0.015 Total Protein 7.3 Albumin 3.2 Globulin 4.1 Albumin/Globulin Ratio 0.8 L Lipase 92 - Medical Decision Making EKG shows atrial fibrillation at a rate of 80. He has had atrial fibrillation on prior EKG. He has nonspecific ST and T wave abnormalities. Labs are notable for sodium of 125. Troponin is negative. Chest x-ray shows subtle density possible lung nodule at the right lung base. Patient was advised of this finding. Patiently spoke to the hospitalist for observation. He asked that I speak to nephrology regarding the sodium. I did speak to the patient's flight physician, Dr. Perez. She notes the patient is an alcoholic. Do not recommend any further intervention at this time in regards to the hyponatremia. Therefore we will discharge with plan for dialysis is scheduled tomorrow with outpatient follow-up. Patient is agreeable to this plan. He was given a prescription for Zofran for nausea. Additionally while here he was given albuterol and Atrovent aerosols for his wheezing. There is likely component of COPD flare as well. We will place on a prednisone burst. He was advised to follow-up as an outpatient for further evaluation for possible lung nodule. ED Disposition - Plan for ED Patient: Disposition: Home or Assisted Living Diagnosis: COPD exacerbation, Hyponatremia Instructions: ED Hyponatremia, ED COPD Flare Prescriptions: predniSONE tablet 60 mg PO DAILY #15 tab Prescription Printed Ondansetron [Zofran Odt] 4 mg PO Q8H PRN PRN #10 tab PRN Reason: Nausea Prescription Printed Referrals: Doron Recio MD [Primary Care Provider] -
[2020-08-16] MEDS: Ondansetron 4 MG/2 ML Vial IV (22:25)
[2020-08-16] MEDS: Ipratropium/Albuterol Sulfate 3 ML AMPUL.NEB INHALATION (22:26)
[2020-08-16] MEDS: Albuterol 2.5 MG/3 ML VIAL.NEB. INHALATION (22:26)
[2020-08-16 22:27] VITALS: PULSE 93; RESP 14
[2020-08-16 22:48] LABS: Absolute Lymphocyte Count 1.44 X10^3/uL (0.83-4.51); Absolute Neutrophil Count 3.3 X10^3/uL (2.0-7.7); Basophil# 0.06 X10^3/uL; Basophil% 0.9 % (0-1); Eosinophils% 10.9 % (0-5); Hematocrit 31.7 % (40-54); Hemoglobin 10.7 g/dL (13.0-16.5); Lymphocyte # 1.44 X10^3/ul (4.0); Lymphocyte % 22.4 % (19-41); Mean Corp Hgb Conc 33.8 g/dL (32-36); Mean Corpuscular Hgb 33.3 pg (27.0-32.0); Mean Corpuscular Volume 98.8 fL (80-94); Mean Platelet Vol. 9.5 fl (6.2-12.0); Monocyte# 0.86 X10^3/uL; Monocyte% 13.4 % (0-10); NRBC Flagged by Analyzer 0 % (0-5); Neutrophil # 3.34 X10^3/uL (2.7-7.7); Neutrophil % 52.1 % (47-70); Platelet Count 290 K/mm3 (150-450); RBC Distribution Width CV 14.3 % (11.6-14.6); RBC Distribution Width SD 51.5 fl (35.1-43.9); Red Blood Count 3.21 M/mm3 (4.6-6.2); White Blood Count 6.4 K/mm3 (4.4-11.0)
--- NOTE | 2020-08-16 23:00 | RAD_ITS ---
STUDY: X-RAY CHEST REASON FOR EXAM: Male, 64 years old. Increased shortness of breath, nausea, fatigue for one week. TECHNIQUE: AP portable chest. COMPARISON: November 18, 2019 and June 25, 2019. FINDINGS: 2.9 cm indistinct density right lung base. Lungs are hyperinflated. No effusions. No pneumothorax. Normal size heart. Normal mediastinum and ania. Normal visualized pulmonary arteries. Normal visualized aortic arch and descending thoracic aorta. Normal visualized thoracic spine. Normal visualized ribs, clavicles, and shoulders. There is no demonstrated abnormality of the visualized soft tissue structures of the upper abdomen. RAD/Chest 1 View (Portable) IMPRESSION: Subtle density right lung base which may represent a lung nodule. Correlate with noncontrast CT. Hyperinflation. Electronically Signed: Montez Daigle MD at 23:20 EST , Service support ,
[2020-08-16 23:09] VITALS: BP 123/57; PULSE 85; RESP 15; TEMP 37.2; O2SAT 100
[2020-08-16 23:15] LABS: ALB/GLOB Ratio 0.8 RATIO (0.9-2.4); AST(SGOT) 21 U/L (15-37); Alanine Aminotransfer ALT/SGPT 22 U/L (16-61); Albumin, Serum 3.2 g/dL (3.2-5.0); Alkaline Phosphatase 128 U/L (45-117); Anion Gap 10 (5-15); BUN 26 mg/dL (7-18); BUN/Creat Ratio 3.5 RATIO (10-20); Calcium,Total 9.1 mg/dL (8.5-10.1); Chloride 87 mmol/L (98-107); Creatinine, Serum 7.36 mg/dL (0.70-1.30); EST Glomerular Filtration Rate 8 mL/min (>60); Est Glom Filt Rate - Afr Amer 10 mL/min (>60); Estimated Creatinine Clearance 10.41 ml/min; Globulin 4.1 g/dL (2.2-4.2); Glucose 97 mg/dL (74-106); Lipase 92 U/L (73-393); Potassium 4.5 mmol/L (3.5-5.1); Protein, Total 7.3 g/dL (6.4-8.2); Sodium Level 125 mmol/L (136-145)
[2020-08-17 00:28] VITALS: BP 135/82; PULSE 89; RESP 18; O2SAT 95
== END 2020-08-17 01:27 | disposition home or self-care (01) ==
PROVIDERS: Emergency Provider Emergency Medicine; PCP Family Medicine
DX: J44.1 Chronic obstructive pulmonary disease with (acute) exacerbation (principal); E87.1 Hypo-osmolality and hyponatremia; I12.0 Hypertensive chronic kidney disease with stage 5 chronic kidney disease or end stage renal disease; N18.6 End stage renal disease; E78.5 Hyperlipidemia, unspecified; Z99.2 Dependence on renal dialysis; Z99.81 Dependence on supplemental oxygen; F17.200 Nicotine dependence, unspecified, uncomplicated; E66.9 Obesity, unspecified
CPT/HCPCS: 71045; 80053; 83690; 84484; 85025; 87426; 93005; 94640; 96361; 96374; 99285; J7040; A4216; J2405

== ENCOUNTER 2020-10-09 10:55 | Outpatient (RCR) | payer MEDICARE, MEDICAID, SELFPAY ==
--- NOTE | 2020-10-09 12:01 | HP.PTEVAL_ITS ---
Patient's Visit Information ALEJA RICHARD is a 65 year old M referred to Physical Therapy by NEIL Simpson with a diagnosis of LBP. Date of Evaluation: 10/09/20 Physical Therapist: Dwain Kurtz PT, ATC - Visit Plan Frequency: 1x/Week Duration: 1 Week Plan: Pt is definitely an excellent candidate for a scooter at this time. Pt is very weak in B UE's and LE's. Pt has very limited tolerance for ambulation and a significant history of falls - Subjective Pt reports he has an extensive Hx of LBP. 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 Pt reports he also suffers from kidney failure and is on Dialysis at this time. Pt reports his LBP radiates down both of his legs. Pt reports he is unable to shower at this time secondary to LBP. Pt notes he hasnt showered for 2 weeks. Pt reports he has difficulty with manuvering in his manual wheelchar due to UE pain. Pt reports he is hoping to get a scooter at this time because he is too limiteed with mobility secondary to pain and weakness. Pt reports he is on pain meds, but his pain remains at 10 plus out of 10. Pt reports he has had several recent falls secondary to his legs giving out on him. - Pain LBP Pain Intensity (Out of 10): 10 Pain Intensity Range: 10 - Objective Neuro: B LE sensation is WNL to light touch. B patellar reflex= 2/3. MMT: B LE's are grossly rated at 4-/5 throughout. Core strength: Pt is able to sit without back support for about 4 minutes until needing to get back into wheelchair for back support. ROM: B UE's and LE's are WFL. transfers: Pt is able to sit to stand and stand to sit I. Gait: Pt is able to walk 23 feet with CGAx1 and cane until needing to sit down from LBP - Goals Goal 1:: NA - Rehabilitation Potential Physical Therapy Diagnosis: Pt has LBP, B LE weakness, and difficulty with community mobility secondary to severe degenrative changes of the Lumbar spine Rehabilitation Potential: Good - Anticipated Interventions Patient/Client Instruction: Educate patient on: Condition, Plan of Care For the Purpose of:: To improve self management Thank you for the opportunity to evaluate your patient. For Medicare and Medicare HMO plans, please review the plan of care and approve it. It will need to be FAXED BACK to us at [phone] for Medicare purposes. For Medicare only, by signing this I certify the plan of care. Please let me know if there are questions or concerns regarding this plan of care. Physician Signature: Dat e:
--- NOTE | 2020-10-10 09:41 | HP.PTEVAL ---
Patient's Visit Information ALEJA RICHARD is a 65 year old M referred to Physical Therapy by NEIL Simpson with a diagnosis of LBP. Date of Evaluation: 10/09/20 Physical Therapist: Dwain Kurtz PT, ATC - Visit Plan Frequency: 1x/Week Duration: 1 Week Plan: Pt is definitely an excellent candidate for a scooter at this time. Pt is very weak in B UE's and LE's. Pt has very limited tolerance for ambulation and a significant history of falls - Subjective Pt reports he has an extensive Hx of LBP. 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 Pt reports he also suffers from kidney failure and is on Dialysis at this time. Pt reports his LBP radiates down both of his legs. Pt reports he is unable to shower at this time secondary to LBP. Pt notes he hasnt showered for 2 weeks. Pt reports he has difficulty with manuvering in his manual wheelchar due to UE pain. Pt reports he is hoping to get a scooter at this time because he is too limiteed with mobility secondary to pain and weakness. Pt reports he is on pain meds, but his pain remains at 10 plus out of 10. Pt reports he has had several recent falls secondary to his legs giving out on him. - Pain LBP Pain Intensity (Out of 10): 10 Pain Intensity Range: 10 Comment: Includes leg pain secondary to LE radiculopathy B shoulder pain Pain Intensity (Out of 10): 7 Pain Intensity Range: 7 - Objective Neuro: B LE sensation is WNL to light touch. B patellar reflex= 2/3. MMT: B LE's are grossly rated at 4-/5 throughout. B UE's are rated at 4-/5 throughout in available ROM. Core strength: Pt is able to sit without back support for about 4 minutes until needing to get back into wheelchair for back support. ROM: B UE's and LE's are WFL. transfers: Pt is able to sit to stand and stand to sit I. Gait: Pt is able to walk 23 feet with CGAx1 and cane until needing to sit down from LBP - Goals Goal 1:: NA - Rehabilitation Potential Physical Therapy Diagnosis: Pt has LBP, B LE weakness, and difficulty with community mobility secondary to severe degenrative changes of the Lumbar spine Rehabilitation Potential: Good - Anticipated Interventions Patient/Client Instruction: Educate patient on: Condition, Plan of Care For the Purpose of:: To improve self management Thank you for the opportunity to evaluate your patient. For Medicare and Medicare HMO plans, please review the plan of care and approve it. It will need to be FAXED BACK to us at [phone] for Medicare purposes. For Medicare only, by signing this I certify the plan of care. Please let me know if there are questions or concerns regarding this plan of care. Physician Signature: Date:
== END 2020-10-09 19:00 | disposition home or self-care (01) ==
LOC: PT 10:55
PROVIDERS: PCP Family Medicine; Referring Provider Physician Assistant; Visit Provider Physician Assistant
DX: M48.061 Spinal stenosis, lumbar region without neurogenic claudication (principal); M84.48XD Pathological fracture, other site, subsequent encounter for fracture with routine healing; R53.81 Other malaise
CPT/HCPCS: 97161

== ENCOUNTER → 2020-12-13 10:47 | Outpatient (CLI) | payer MEDICARE, MEDICAID, SELFPAY ==
--- NOTE | 2020-12-13 10:51 | RAD_ITS ---
ACR Level 3 findings have been noted. An addendum which confirms receipt of the report will follow. STUDY: X-RAY - LUMBAR SPINE REASON FOR EXAM: Male, 65 years old. BACK PAIN TECHNIQUE: 3 view(s) of the lumbar spine were obtained. COMPARISON: 03 March 2020 FINDINGS: L3 has lost height compared to prior images, possibly chronic compression deformity of inferior endplate. There is chronic compression deformity of L1 with anterior wedging, L2 with superior endplate depression and L4 and L5 diffusely. All vertebral bodies have lost less than 25% of their height without complete collapse. Mineralization is diffusely decreased. There are expected age-related degenerative changes. SI joints are normal. There is no intestinal obstruction. RAD/Lumbar Spine 2 or 3 Views IMPRESSION: 1. L3 compression, new since prior, unclear age, possibly chronic. However, if evaluation for acute compression fracture is needed CT is recommended. 2. Multilevel chronic osteoporotic compression fractures present since 2019. Electronically Signed: Roberto Muniz MD at 19:36 EDT Tel , Service support ,
== END ==
PROVIDERS: PCP Family Medicine; Referring Provider Anesthesiology Pain Medicine; Visit Provider Anesthesiology Pain Medicine
DX: M54.5 Low back pain (principal)
CPT/HCPCS: 72100

== ENCOUNTER 2021-03-08 03:11 | Inpatient (IN) | payer MEDICARE, MEDICAID, SELFPAY ==
[2021-03-08] VITALS (32 sets, daily range): BP systolic 91–135; BP diastolic 58–99; PULSE 63–114; RESP 16–24; TEMP 36.3–36.8; O2SAT 93–100; BMI 29.3; BMI 28.8
--- NOTE | 2021-03-08 03:22 | EKG12_ITS ---
Test Reason : SOB Blood Pressure : / mmHG Vent. Rate : 084 BPM Atrial Rate : 084 BPM P-R Int : 154 ms QRS Dur : 116 ms QT Int : 514 ms P-R-T Axes : 003 047 180 degrees QTc Int : 607 ms Normal sinus rhythm ST & T wave abnormality, consider inferior ischemia ST & T wave abnormality, consider anterolateral ischemia Prolonged QT Abnormal ECG Confirmed by MARIA DOLORES CERVANTES, ALEJA ([id number]), editorial writer SEAN WEBB ([id number]) on 03/12/2021 10:21:52 AM Referred By: PROMISE Confirmed By:ALEJA WHITTEN MD
--- NOTE | 2021-03-08 03:22 | RAD_ITS ---
STUDY: X-RAY CHEST REASON FOR EXAM: Male, 65 years old. Dyspnea, wheezing TECHNIQUE: Single AP portable view of the chest. COMPARISON: 08/16/2020. 05/03/2019. FINDINGS: There is diffuse interstitial prominence in the lungs which is chronic. There is also chronic atelectasis and/or pleural effusion or pleural thickening in the left lung base. No acute pulmonary infiltrates or pleural effusions are identified. Normal size heart. Normal mediastinum and ania. Normal visualized aortic arch and descending thoracic aorta. There are no demonstrated acute fractures or destructive bone lesions. There is no demonstrated abnormality of the visualized soft tissue structures of the upper abdomen. RAD/Chest 1 View (Portable) IMPRESSION: Chronic interstitial lung disease. Chronic pleural and parenchymal changes in the left lung base. No new abnormalities are identified. Electronically Signed: Kar Morelos MD at 4:06 EDT , Service support ,
--- NOTE | 2021-03-08 03:26 | EDS_ITS ---
HPI History of Present Illness Chief Complaint: Shortness of Breath Informant: patient Onset/Context/Timing Onset: Days Context: gradual Timing: Continuous and Waxes and wanes Quality: Positive for Dyspnea on exertion Current Severity: Moderate Maximum Severity: Severe Worsened by: Exertion and Coughing Relieved by: Nothing Associated Symptoms cough; Negative for rhinorrhea, post nasal drip, ear pain, fever, sore throat, subjective, chills or sweats Chest Pain: Positive for None Narrative Narrative: Patient is a 65-year-old male who presents by EMS because of shortness of breath. Shortness of breath started couple of days ago was gradual gotten worse. He is a smoker 1 pack/day. He has not been on prednisone the las t 3 to 6 months. He denies history of PE or DVT. He denies rhinorrhea, congestion postnasal drainage. Denies sore throat. He denies nausea, vomiting or diarrhea. He denies leg pain or discoloration. He does have swelling. He is on hemodialysis and is dialyzed on Friday, and Friday. He does have history of coronary artery disease as well. PE Risk Factors: Negative for Cancer, OCP + Smoking + > 35, Prior DVT or PE, Recent immobilization, Recent surgery and Recent travel Prior similar symptoms: Yes (COPD) Recent Illness/Hospitalization: No PFSH PFS Medical History (Updated 03/08/21 @ 04:[address] Wesly Husain MD) Adrenal adenoma Alcohol addiction Alcoholic cardiomyopathy Atrial fibrillation with rapid ventricular response (04/2019) Back pain Benign hypertension BPH (benign prostatic hyperplasia) Cardiomyopathy in diseases classified elsewhere Chronic obstructive pulmonary disease Chronic renal failure, stage 4 (severe) Chronic serous otitis media of left ear COPD (chronic obstructive pulmonary disease) Current drinker of alcohol Diverticulosis ESRD (end stage renal disease) on dialysis Hiatal hernia Hyperlipidemia Nicotine dependence Paroxysmal atrial fibrillation Persistent atrial fibrillation PKD (polycystic kidney disease) Problem with dialysis access Home Medications lovastatin 20 mg tablet 40 mg PO QHS 05/09/17 [History Last Taken 09/17/17] tamsulosin 0.4 mg PO DAILY 05/09/17 [History Last Taken 09/17/17] nitroglycerin 0.4 mg sublingual tablet 0.4 mg SUBLINGUAL Q5-15M PRN #25 tab 04/22/19 [Rx Last Taken Unknown] loratadine 10 mg PO DAILY 05/03/19 [History Last Taken Unknown] acetaminophen 650 mg PO Q8H PRN PRN 05/12/19 [History Last Taken Unknown] albuterol sulfate 2 mg/5 mL oral syrup 2 mg PO TID 12/15/19 [History Last Taken Unknown] furosemide 20 mg tablet 20 mg PO DAILY tab 12/28/19 [History Last Taken Unknown] gabapentin 300 mg capsule 100 mg PO BID cap 12/28/19 [History Last Taken Unknown] hydroxyzine HCl 50 mg tablet 50 mg PO QHS tab 12/28/19 [History Last Taken Unknown] sevelamer carbonate 800 mg tablet PO 12/28/19 [History Last Taken Unknown] metoprolol tartrate 25 mg tablet 50 mg PO BID 90 Days #360 tab 03/29/20 [Rx Last Taken Unknown] Acapella #1 ea 04/05/20 [Rx Last Taken Unknown] albuterol sulfate 90 mcg/actuation aerosol inhaler 2 puff INHALATION Q4H PRN PRN #18 g 04/14/20 [Rx Last Taken Unknown] fluticasone 250 mcg-salmeterol 50 mcg/dose blistr powdr for inhalation 1 inh INHALATION BID #60 ea 04/14/20 [Rx Last Taken Unknown] diltiazem HCl 240 mg capsule,extended release 24 hr 240 mg PO DAILY #30 cap 06/19/20 [Rx Last Taken Unknown] doxycycline hyclate 100 mg tablet 100 mg PO BID #20 tab 06/30/20 [Rx Last Taken Unknown] nystatin 100,000 unit/mL oral suspension 5 ml MUCOUS MEMBRANE TID #250 ml 06/30/20 [Rx Last Taken Unknown] prednisone 10 mg tablet 10 mg PO QDAY #30 tab 06/30/20 [Rx Last Taken Unknown] tiotropium bromide 2.5 mcg/actuation mist for inhalation 2 puff INHALATION QDAY #3 ea 06/30/20 [Rx Last Taken Unknown] electric wheel chair #1 ea 07/03/20 [Rx Last Taken Unknown] ondansetron 4 mg PO Q8H PRN PRN #10 tab 08/16/20 [Rx Last Taken Unknown] prednisone 60 mg PO DAILY #15 tab 08/16/20 [Rx Last Taken Unknown] cetirizine 10 mg PO DAILY 03/08/21 [History Last Taken Unknown] sertraline 100 mg PO DAILY 03/08/21 [History Last Taken Unknown] Allergy/AdvReac Type Severity Reaction Status Date / Time Penicillins Allergy Unknown Verified 08/16/20 22:01 Family History Mother Cancer brain Father Cancer throat Surgical History History of angioplasty of peripheral vessel (07/2019) Surgically constructed arteriovenous fistula Social History (Updated 03/08/21 @ 03:[address] Wesly Husain MD) household members: none housing: apartment Smoking Status: Current every day smoker tobacco type: cigarettes Tobacco: How many years used: 40 alcohol intake: current alcohol intake frequency: 3 or more drinks per day Alcohol type: beer substance use type: does not use ROS ROS ED Constitutional Constitutional ED: Denies chills, fever(s) or sweats Eyes Eyes: Denies blurry vision or change in vision ENT ENT ED: Denies ear pain, rhinorrhea or sore throat Cardiovascular Cardiovascular: Denies chest pain, orthopnea, palpitations, paroxysmal nocturnal dyspnea or racing heartbeat Respiratory/Chest Respiratory/Chest: Reports cough, dyspnea and dyspnea on exertion; Denies orthopnea, paroxysmal nocturnal dyspnea or sputum Gastrointestinal Gastrointestinal: Denies abdominal pain, diarrhea, melena, nausea or vomiting Genitourinary Genitourinary ED: Denies dysuria, hematuria or urinary frequency Musculoskeletal Musculoskeletal: Denies arthralgias, myalgias or neck pain Integumentary Denies rash Neurologic Neurologic: Reports weakness; Denies headache(s) or paresthesias Hematologic/Lymphatic Hematologic/Lymphatic: Denies easy bleeding or easy bruising Allergic/Immunologic Allergic/Immunologic ED: Denies urticaria EXAM Physical Exam Const Vital Signs: 03/08/21 03:11 03/08/21 03:16 03/08/21 03:45 Temperature 97.8 F Temperature Source Temporal Pulse Rate 85 78 Respiratory Rate 18 24 H Respiratory Effort Normal Non-Labored Respiratory Depth Normal Respiratory Pattern Normal Blood Pressure 110/77 Blood Pressure Mean 88 Pulse Ox 97 Oxygen Delivery Method Room Air Room Air 03/08/21 04:20 Temperature 97.3 F L Temperature Source Temporal Pulse Rate 91 Respiratory Rate 24 H Respiratory Effort Respiratory Depth Respiratory Pattern Blood Pressure 96/67 Blood Pressure Mean 76 Pulse Ox 98 Oxygen Delivery Method Room Air Positive well nourished, well developed and unkempt General Appearance ED: unkempt and well developed HEENT Reports TM's clear and moist mucous membranes HEENT Narrative: Ears normal. Nares patent. Posterior pharynx no erythema or exudate. atraumatic Tympanic Membrane ED: Yes TM's clear Eyes PERRL and EOMs intact bilaterally General Eye ED: Negative for pale conjunctiva Neck no lymphadenopathy, supple, no meningeal signs and no JVD Resp No normal respiratory effort and No clear to auscultation bilaterally Auscultation: wheezes expiratory wheezes and throughout Cardio no murmurs GI non-tender, non-distended and no masses Inspection: other Other Details: Patient has cigarette sidhu on his chest and abdominal wall Auscultation: normoactive bowel sounds Palpation: soft Back/Spine no CVA tenderness and normal to inspection Extremity normal to inspection General Extremety ED: Yes edema; Negative for tenderness General Extremity: edema Neuro oriented x3 and CN's II-XII intact bilaterally Sensorium / Orientation: alert Motor Exam: strength 5/5 throughout Psych mental status grossly normal Appearance: unkempt Thought Process: normal thought process Skin no wounds Lesions: no lesions Rashes: no rashes MDM MDM Lab Data Attestation: I reviewed the patient's lab results. Lab results narrative: CBC is remarkable mild anemia. Patient is hyponatremic hypochloremic. He is on furosemide and most likely this is the cause. BUN and creatinine are 31 and 6.36. Patient does have history of end-stage renal disease on hemodialysis. Labs: Laboratory Results - last 24 hr 03/08/21 03/08/21 03:33 03:33 WBC 6.6 RBC 3.18 L Hgb 9.9 L Hct 30.1 L MCV 94.7 H MCH 31.1 MCHC 32.9 RDW Std Deviation 49.2 H RDW Coeff of Karl 14.4 Plt Count 232 MPV 10.3 Immature Gran % (Auto) 0.500 Neut % (Auto) 68.7 Lymph % (Auto) 17.8 L [place] % (Auto) 9.1 Eos % (Auto) 3.3 Baso % (Auto) 0.6 Absolute Neuts (auto) 4.5 Absolute Lymphs (auto) 1.17 Nucleated RBC % 0 Sodium 123 L Potassium 3.9 Chloride 86 L Carbon Dioxide 25.0 Anion Gap 12 BUN 31 H Creatinine 6.36 H Estim Creat Clear Calc 12.28 Est GFR (MDRD) Af Amer 12 L Est GFR (MDRD) Non-Af 10 L BUN/Creatinine Ratio 4.9 L Glucose 103 Calcium 8.2 L ABG Data ABG results: ABG 03/08/21 03:42 Specimen Type TYRONE VBG pH 7.41 VBG pO2 53 H VBG HCO3 23 VBG Total CO2 24 VBG O2 Sat (Calc) 87 H VBG Base Excess -2 L POC Mix VBG pCO2 Pt Tmp 35.2 L O2 Delivery Device Room Air Radiography Chest X-Ray - ED: 1 View, Heart, Lungs (Chronic changes consistent with COPD and chronic changes left lower lung unchanged from prior.), Mediastinum, Bony Structures and Chronic Changes Diagnostic Testing: Radiology Impression Chest X-Ray 03/08/21 03:22 IMPRESSION: Chronic interstitial lung disease. Chronic pleural and parenchymal changes in the left lung base. No new abnormalities are identified. Electronically Signed: Kar Morelos MD at 4:06 EDT , Service support , EKG Initial EKG: Attestation: I personally reviewed and interpreted this EKG as follows: Interpretation: Sinus Rhythm (Sinus rhythm ventricular rate 84. MD interval is 154 ms per cures duration under 16 ms. QT duration is 514 ms a QTC of 607 ms, which is prolonged. Patient has deeply inverted T waves in the anterolateral leads which are new compared to August 16, 2020. We will treat patient with aspirin.) Discharge Plan Triage Chief Complaint: Shortness of Breath ED Provider: Wesly Husain Dx/Rx/DC Orders Clinical Impression: Abnormal ECG, Acute exacerbation of chronic obstructive pulmonary disease, End- stage renal disease on hemodialysis, Anemia due to chronic illness Prescriptions: No Action sevelamer carbonate 800 mg tablet PO RF: 0 furosemide 20 mg tablet 20 mg PO DAILY RF: 0 hydroxyzine HCl 50 mg tablet 50 mg PO QHS RF: 0 gabapentin 300 mg capsule 100 mg PO BID RF: 0 albuterol sulfate 2 mg/5 mL syrup 2 mg PO TID RF: 0 (DME) Acapella Qty: 1 RF: 0 Spiriva Respimat 2.5 mcg/actuation mist 2 puff INHALATION QDAY Qty: 3 RF: 3 doxycycline hyclate 100 mg tablet 100 mg PO BID Qty: 20 RF: 0 prednisone 10 mg tablet 10 mg PO QDAY Qty: 30 RF: 0 nystatin 100,000 unit/mL suspension 5 ml mucous membrane TID Qty: 250 RF: 1 tamsulosin 0.4 MG capsule 0.4 mg PO DAILY RF: 0 lovastatin 20 MG tablet 40 mg PO QHS RF: 0 Hold Instructions: Myalgias in arms loratadine 10 MG capsule 10 mg PO DAILY RF: 0 acetaminophen 650 MG tablet extended release 650 mg PO Q8H PRN PRN (Reason: Pain Score 1-10/10) RF: 0 prednisone 20 MG tablet 60 mg PO DAILY Qty: 15 RF: 0 ondansetron 4 MG tablet 4 mg PO Q8H PRN PRN (Reason: Nausea) Qty: 10 RF: 0 cetirizine 10 mg tablet 10 mg PO DAILY RF: 0 sertraline 100 mg tablet 100 mg PO DAILY RF: 0 nitroglycerin 0.4 mg tablet, sublingual 0.4 mg SUBLINGUAL Q5-15M PRN (Reason: chest pain) Qty: 25 RF: 3 metoprolol tartrate 25 mg tablet 50 mg PO BID 90 Days Qty: 360 RF: 3 albuterol sulfate 90 mcg/actuation HFA aerosol inhaler 2 puff inhalation Q4H PRN PRN (Reason: Sob &/Or Wheezing) Qty: 18 RF: 6 fluticasone propion-salmeterol 250-50 mcg/dose blister with device 1 inh INHALATION BID Qty: 60 RF: 6 diltiazem HCl 240 mg capsule,extended release 24hr 240 mg PO DAILY Qty: 30 RF: 11 (DME) electric wheel chair See Rx Instructions .Route .MEDSUPPLY Qty: 1 RF: 0 Primary Care Provider: Doron Recio Referrals: Doron Recio MD [Primary Care Provider] - Disposition Disposition: Acute Care Hospital [facility]
[2021-03-08] MEDS: MethylPREDNISolone 125 MG/2 ML Vial IV (03:33)
[2021-03-08] MEDS: Ipratropium/Albuterol Sulfate 3 ML AMPUL.NEB INHALATION ×4 (03:37→18:49)
[2021-03-08] MEDS: Albuterol 2.5 MG/3 ML VIAL.NEB. INHALATION ×4 (03:38→21:31)
[2021-03-08 03:44] LABS: Absolute Lymphocyte Count 1.17 X10^3/uL (0.83-4.51); Absolute Neutrophil Count 4.5 X10^3/uL (2.0-7.7); Basophil# 0.04 X10^3/uL; Basophil% 0.6 % (0-1); Eosinophil# 0.22 X10^3/uL; Eosinophils% 3.3 % (0-5); Hematocrit 30.1 % (40-54); Hemoglobin 9.9 g/dL (13.0-16.5); Lymphocyte # 1.17 X10^3/ul (0.83-4.51); Lymphocyte % 17.8 % (19-41); Mean Corp Hgb Conc 32.9 g/dL (32-36); Mean Corpuscular Hgb 31.1 pg (27.0-32.0); Mean Corpuscular Volume 94.7 fL (80-94); Mean Platelet Vol. 10.3 fl (6.2-12.0); Monocyte% 9.1 % (0-10); NRBC Flagged by Analyzer 0 % (0-5); Neutrophil # 4.52 X10^3/uL (2.7-7.7); Neutrophil % 68.7 % (47-70); Platelet Count 232 K/mm3 (150-450); RBC Distribution Width CV 14.4 % (11.6-14.6); RBC Distribution Width SD 49.2 fl (35.1-43.9); Red Blood Count 3.18 M/mm3 (4.6-6.2); White Blood Count 6.6 K/mm3 (4.4-11.0)
[2021-03-08 03:46] LABS: Blood Gas Specimen Type VEN; O2 Delivery Device Room Air; VBG BASE EXCESS -2 mmol/L (-1.0-3.5); VBG Bicarbonate 23 mmol/L (22-26); VBG PO2 53 mmHg (25-40); VBG SO2 87 % (50-70); VBG TCO2 24 mmol/L (23-33); VBG pCO2 35.2 mmHg (41-51); VBG pH 7.41 (7.32-7.42)
[2021-03-08 03:52] LABS: Anion Gap 12 (5-15); BUN 31 mg/dL (7-18); BUN/Creat Ratio 4.9 RATIO (10-20); Calcium,Total 8.2 mg/dL (8.5-10.1); Chloride 86 mmol/L (98-107); Creatinine, Serum 6.36 mg/dL (0.70-1.30); EST Glomerular Filtration Rate 10 mL/min (>60); Est Glom Filt Rate - Afr Amer 12 mL/min (>60); Estimated Creatinine Clearance 12.28 ml/min; Glucose 103 mg/dL (74-106); Potassium 3.9 mmol/L (3.5-5.1); Sodium Level 123 mmol/L (136-145)
[2021-03-08] MEDS: Aspirin 81 MG TAB.CHEW 324 MG PO (04:14)
--- NOTE | 2021-03-08 04:29 | HP.PCM.HOS_ITS ---
HPI - General General Date of Admission: 03/08/21 Date of Service: 03/08/21 Chief Complaint: Chest pain, Dyspnea, Wheezing. HPI Narrative The patient is a 65 y/o M w/ PMHx: ESRD on HD following with Dr. Perez, PAF, HTN, HLD, Tobacco use, EtOH abuse, COPD who presents to the [facility] ED on 03/08/21 with history of ongoing dyspnea, progressive worsening with wheezing and non- productive cough without fever or chills x 2-3 days with onset chest discomfort on day of ED presentation. He describes the chest discomfort as diffuse across the chest, nonradiating, present even at rest and following further discussion states that has been ongoing intermittently for at least 1 month. He does state he has worsened dyspnea when he has these episodes of discomfort and rates the pain 10 out of 10 in severity, described as a throbbing and aching. He currently denies any chest discomfort at this time and states that his breathing is improved following ED interventions Work-up in the ED included T 97.8, heart rate 85, BP 110/77, respiratory rate 18, 97% on room air, CBC with WC 6.6, hemoglobin 9.9, platelet 232 without marked shift, VBG with pH 7.41, PO2 53, bicarb 23, O2 saturation 87% on room air, chest x-ray with chronic interstitial lung disease with chronic pleural-parenchymal changes in the left lung base with no acute cardiopulmonary findings otherwise, rapid Covid negative, EKG with sinus rhythm with inverted T waves in the anterior leads new from 08/2020. Cardiac troponin pending upon evaluation patient given EKG changes. [facility] Medical History (Updated 03/08/21 @ 06:[address] Saranya Shirley MD) Adrenal adenoma Alcohol addiction Alcoholic cardiomyopathy Atrial fibrillation with rapid ventricular response (04/2019) Back pain Benign hypertension BPH (benign prostatic hyperplasia) Cardiomyopathy in diseases classified elsewhere Chronic obstructive pulmonary disease Chronic renal failure, stage 4 (severe) Chronic serous otitis media of left ear COPD (chronic obstructive pulmonary disease) Current drinker of alcohol Diverticulosis ESRD (end stage renal disease) on dialysis Hiatal hernia Hyperlipidemia Nicotine dependence Paroxysmal atrial fibrillation Persistent atrial fibrillation PKD (polycystic kidney disease) Problem with dialysis access Home Medications lovastatin 20 mg tablet 40 mg PO QHS 05/09/17 [History Last Taken 09/17/17] tamsulosin 0.4 mg PO DAILY 05/09/17 [History Last Taken 09/17/17] nitroglycerin 0.4 mg sublingual tablet 0.4 mg SUBLINGUAL Q5-15M PRN #25 tab 04/22/19 [Rx Last Taken Unknown] loratadine 10 mg PO DAILY 05/03/19 [History Last Taken Unknown] acetaminophen 650 mg PO Q8H PRN PRN 05/12/19 [History Last Taken Unknown] albuterol sulfate 2 mg/5 mL oral syrup 2 mg PO TID 12/15/19 [History Last Taken Unknown] furosemide 20 mg tablet 20 mg PO DAILY tab 12/28/19 [History Last Taken Unkno wn] gabapentin 300 mg capsule 100 mg PO BID cap 12/28/19 [History Last Taken Unknown] hydroxyzine HCl 50 mg tablet 50 mg PO QHS tab 12/28/19 [History Last Taken Unknown] sevelamer carbonate 800 mg tablet PO 12/28/19 [History Last Taken Unknown] metoprolol tartrate 25 mg tablet 50 mg PO BID 90 Days #360 tab 03/29/20 [Rx Last Taken Unknown] Acapella #1 ea 04/05/20 [Rx Last Taken Unknown] albuterol sulfate 90 mcg/actuation aerosol inhaler 2 puff INHALATION Q4H PRN PRN #18 g 04/14/20 [Rx Last Taken Unknown] fluticasone 250 mcg-salmeterol 50 mcg/dose blistr powdr for inhalation 1 inh INHALATION BID #60 ea 04/14/20 [Rx Last Taken Unknown] diltiazem HCl 240 mg capsule,extended release 24 hr 240 mg PO DAILY #30 cap 06/19/20 [Rx Last Taken Unknown] tiotropium bromide 2.5 mcg/actuation mist for inhalation 2 puff INHALATION QDAY #3 ea 06/30/20 [Rx Last Taken Unknown] electric wheel chair #1 ea 07/03/20 [Rx Last Taken Unknown] ondansetron 4 mg PO Q8H PRN PRN #10 tab 08/16/20 [Rx Last Taken Unknown] cetirizine 10 mg PO DAILY 03/08/21 [History Last Taken Unknown] sertraline 100 mg PO DAILY 03/08/21 [History Last Taken Unknown] Allergy/AdvReac Type Severity Reaction Status Date / Time Penicillins Allergy Unknown Verified 02/03/21 22:01 Family History Mother Cancer brain Father Cancer throat Surgical History History of angioplasty of peripheral vessel (07/2019) Surgically constructed arteriovenous fistula Social History (Updated 03/08/21 @ 06:[address] Saranya Shirley MD) household members: none housing: apartment Smoking Status: Current every day smoker tobacco type: cigarettes Smoking packs per day: 1 Smoking cigarettes per day: 20.0 alcohol intake: current Alcohol type: beer details: Notes 2-3 beers, QOD substance use type: does not use ROS ROS Narrative Admission Review of Systems: CONSTITUTIONAL: No weight loss, fever, chills, + weakness or fatigue. HEENT: Eyes: No visual loss, blurred vision, double vision or yellow sclerae. Ears, Nose, Throat: No hearing loss, sneezing, congestion, runny nose or sore throat. SKIN: No rash or itching, lesions, wounds. CARDIOVASCULAR: + chest pain, chest pressure or chest discomfort, No palpitations, edema, orthopnea, syncopal events. RESPIRATORY: + shortness of breath, cough without marked sputum, wheezing, No hemoptysis. GASTROINTESTINAL: No anorexia, nausea, vomiting or diarrhea, abdominal pain, melena, BRBPR. GENITOURINARY: No dysuria, frequency, urgency or retention. NEUROLOGICAL: No headache, dizziness, syncope, paralysis, ataxia, numbness or tingling in the extremities, focal weakness, change in bowel or bladder control, seizure. MUSCULOSKELETAL: + muscle, back pain, joint pain or stiffness. HEMATOLOGIC: + anemia, bleeding or bruising. LYMPHATICS: No enlarged nodes. No history of splenectomy. PSYCHIATRIC: No history of depression or anxiety. ENDOCRINOLOGIC: No reports of sweating, cold or heat intolerance. No polyuria or polydipsia. ALLERGIES: No history of asthma, hives, eczema or rhinitis. Vital Signs Vital Signs Vital Signs: 03/08/21 03:11 03/08/21 03:16 03/08/21 03:45 Temperature 97.8 F Temperature Source Temporal Pulse Rate 85 78 Respiratory Rate 18 24 H Respiratory Effort Normal Non-Labored Respiratory Depth Normal Respiratory Pattern Normal Blood Pressure 110/77 Blood Pressure Mean 88 Pulse Ox 97 Oxygen Delivery Method Room Air Room Air 03/08/21 04:20 Temperature 97.3 F L Temperature Source Temporal Pulse Rate 91 Respiratory Rate 24 H Respiratory Effort Respiratory Depth Respiratory Pattern Blood Pressure 96/67 Blood Pressure Mean 76 Pulse Ox 98 Oxygen Delivery Method Room Air Weight Weight: 204 lb 5.896 oz Body Mass Index (BMI) 29.3 Physical Exam Narrative Physical Examination: General: Awake, alert, oriented x 3 and cooperative, seated upright in the ED bed in no apparent distress, notes feeling significantly improved since initial ED presentation following aerosols. Skin: Normal color, normal turgor, no icterus, no cyanosis. HEENT: AT/NC, EOMI, PERRLA, mildly dry MM, no carotid bruits or JVD noted. Lungs: Diffusely diminished L, greater bases, end expiratory ongoing wheezing, mildly coarse, no obvious rales, no evidence of respiratory distress. Heart: Regular rate and rhythm; no gallop, rub audible. Abdomen: Soft, NTTP, ND, normal BS, no HSM. Extremities: No cyanosis, clubbing, or edema. Left upper extremity with posit anahi thrill AVF. Neurological: Patient awake, alert, oriented as noted, cognitive function intact; pupils equally reactive to light and accommodation, cranial nerves II- XII grossly normal, moving all 4 extremities, no focal deficits, strength mildly moderately decreased secondary to acute complaints and presentation. Psychiatric: Affect appears fatigued otherwise normal, no acute evidence of depressive or anxiety feelings. Results Lab / Micro Data Result Diagrams: 03/08/21 03:33 03/08/21 03:33 Labs: Laboratory Results - last 24 hr 03/08/21 03:33: WBC 6.6, RBC 3.18 L, Hgb 9.9 L, Hct 30.1 L, MCV 94.7 H, MCH 31.1, MCHC 32.9, RDW Std Deviation 49.2 H, RDW Coeff of Karl 14.4, Plt Count 232, MPV 10.3, Immature Gran % (Auto) 0.500, Neut % (Auto) 68.7, Lymph % (Auto) 17.8 L, Crenshaw % (Auto) 9.1, Eos % (Auto) 3.3, Baso % (Auto) 0.6, Absolute Neuts (auto) 4.5, Absolute Lymphs (auto) 1.17, Nucleated RBC % 0 03/08/21 03:33: Sodium 123 L, Potassium 3.9, Chloride 86 L, Carbon Dioxide 25.0, Anion Gap 12, BUN 31 H, Creatinine 6.36 H, Estim Creat Clear Calc 12.28, Est GFR (MDRD) Af Amer 12 L, Est GFR (MDRD) Non-Af 10 L, BUN/Creatinine Ratio 4.9 L, Glucose 103, Calcium 8.2 L Micro: Microbiology 03/08/21 03:27 Nasal Secretion SARS-CoV-2 Antigen (Rapid) - Final ABG Data ABG results: ABG 03/08/21 03:42 Specimen Type TYRONE VBG pH 7.41 VBG pO2 53 H VBG HCO3 23 VBG Total CO2 24 VBG O2 Sat (Calc) 87 H VBG Base Excess -2 L POC Mix VBG pCO2 Pt Tmp 35.2 L O2 Delivery Device Room Air Radiology Impression Chest X-Ray 03/08/21 03:22 IMPRESSION: Chronic interstitial lung disease. Chronic pleural and parenchymal changes in the left lung base. No new abnormalities are identified. Electronically Signed: Kar Morelos MD at 4:06 EDT , Service support , Assessment & Plan Assessment/Plan (1) Acute exacerbation of chronic obstructive pulmonary disease: (2) Abnormal ECG: (3) Chest pain: QUALIFIERS: Chest pain type: unspecified Qualified Code(s): R07.9 - Chest pain, unspecified (4) Elevated troponin: PLAN: The patient is a 65 y/o M w/ PMHx: ESRD on HD following with Dr. Perez, PAF, HTN, HLD, Tobacco use, EtOH abuse, COPD who presents to the [facility] ED on 03/08/21 with history of ongoing dyspnea, progressive worsening with wheezing and non-productive cough without fever or chills x 2-3 days with onset chest discomfort. 1. Acute on chronic COPD exacerbation: Will admit to PCU given concurrent EKG changes and chest pain, maintain on oxygen with wean as tolerated to room air, continue ATC duonebs, PRN albuterol, IV methylprednisolone, HOB, IS parameters, defer abx given no marked sputum production, afebrile and no marked WBC elevation or L shift, requested respiratory viral panel, procalcitonin and sputum cultures. 2. Chest Pain with new EKG changes, elevated Troponin, suspected early NSTEMI: EKG in ED sinus rhythm with new inverted T waves in the anterior leads, CXR w/ no acute cardiopulmonary findings with chronic changes, initial trop 261. Will place on a monitored bed, continue serial cardiac enzymes and EKGs. Echocardiog willow requested. Will initiate heparin drip and request cardiology consultation. FLP in a.m. Magnesium level requested. ASA, NG, morphine. 3. Acute on Chronic Hyponatremia: Admission sodium 123, chloride also low, baseline appears primarily lower 130s however has been 125-129 previously, will judiciously hydrate, patient is due for dialysis today as noted. 4. Cardiomyopathy, EtOH associated: Noted in history, last echocardiogram was a stress echo 02/28/2020 with resting echo demonstrating moderately severe reduction in ventricular systolic function estimated 27%, during low dose and peak improvement in the LV function, peak estimated EF 30% with global hypokinesis with no wall motion abnormalities to suggest ischemia with findings consistent with cardiomyopathy. We will continue aspirin, metoprolol, not on JÚNIOR inhibitor/ARB likely secondary to underlying renal history, not on statin t herapy, FLP in a.m. as noted. 5. PAF: Patient not chronically anticoagulated, continue home metoprolol and diltiazem regimen. 6. ESRD: Patient on HD, T, Th, Sat, will consult Dr. Perez, pending mag and phos. 7. Hypertension: Continue home regimen including metoprolol, diltiazem, Lasix with hold parameters, PRN hydralazine. 8. Hyperlipidemia: Continue home statin regimen. AM FLP. 9. Chronic anemia, AOCD: Admission Hgb 9.9, baseline hemoglobin appears 9-10, stable, trend. 10. Anxiety and depression: We will continue patient home sertraline regimen. 11. Allergic rhinitis: We will continue patient home loratadine and sertraline regimen. 12. BPH: We will continue patient on Flomax regimen. 13. EtOH Abuse: Patient notes routine consumption of usually 2 beers QOD but historically more. Will maintain on CIWA protocol to be cautious, MVI, thiamine and folic acid. Mag and phos pending. 14. DVT prophylaxis: SCDs, heparin drip. 15. CODE status: Patient NILTON is his sister and living will is currently in place. Discussed CODE status at length including difference between FULL code, DNR-CCA and DNR-CC status. Following discussions about the differences in these status, requested Full Code status. Advanced Care Planning Face to Face Time: 16 minutes. Charges/Coding Visit Charges Inpatient E&M: 01739 Init Hosp L3 Procedures Hospitalists Procedures: 30554 Advncd Care Plan 30 Min
[2021-03-08 05:17] LABS: Troponin-I HS 261 pg/mL (3.0-78.0)
[2021-03-08 05:41] LABS: Procalcitonin 0.69 ng/mL (0.00-0.09)
[2021-03-08 05:42] LABS: Magnesium 1.9 mg/dL (1.6-2.6); Phosphorus 5.5 mg/dL (2.5-4.9)
--- NOTE | 2021-03-08 06:09 | ECHOD_ITS ---
Reason For Study: CAD Procedure This was a 2D Doppler, Color Flow transthoracic echocardiogram. Exam performed portable in patient room. Left Ventricle Normal LV size. The estimated ejection fraction is 45 %. Moderate segmental systolic dysfunction (see wall motion). The rest of the wall segments are hypokinetic. Right Ventricle Normal RV size. Normal systolic function. Atria Normal left atrium. Normal right atrium. Mitral Valve There is mild mitral annular calcification. Tricuspid Valve Normal tricuspid valve. Aortic Valve Trisinus/trileaflet aortic valve. Pulmonic Valve Normal pulmonic valve. Great Vessels Normal aortic root. Pericardium/Pleural No pericardial effusion. MMode/2D Measurements & Calculations LVIDd: 5.5 cm IVSd: 1.2 cm Ao root diam: 3.8 cm LVIDs: 4.3 cm LVPWd: 1.0 cm FS: 22.0 % LAV(MOD-bp): 56.0 ml LA A4 area: 20.3 cm2 LA dimension(2D): 4.0 cm LAV(MOD-bp) Indexed: 28.7 ml/m2 LAV(MOD-sp2): 48.4 ml LAV(MOD-sp4): 62.3 ml RA A4 area: 17.7 cm2 Time Measurements MV dec time: 0.10 sec Doppler Measurements & Calculations MV E max ravinder: 107.3 cm/sec Lat Peak E' Ravinder: 11.3 cm/sec Med Peak E' Ravinder: 10.1 cm/sec MV A max ravinder: 42.7 cm/sec E/E' lat: 9.5 E/E' med: 10.6 MV E/A: 2.5 Ao V2 max: 120.2 cm/sec LV V1 max: 87.1 cm/sec TR max ravinder: 264.0 cm/sec Ao max P.8 mmHg LV V1 max P.0 mmHg TR max P.9 mmHg ECHO/Echo Complete Interpretation Summary Normal LV size. The estimated ejection fraction is 45 %. The rest of the wall segments are hypokinetic. Moderate segmental systolic dysfunction (see wall motion). Ordering Physician: Saranya Shirley Referring Physician: ALANA FOSTER Performed By: Mabel Tyler, DUNCAN, RVT
--- NOTE | 2021-03-08 06:09 | EKG12_ITS ---
Test Reason : CP Blood Pressure : / mmHG Vent. Rate : 096 BPM Atrial Rate : 096 BPM P-R Int : 152 ms QRS Dur : 116 ms QT Int : 474 ms P-R-T Axes : 018 063 172 degrees QTc Int : 598 ms Normal sinus rhythm ST & T wave abnormality, consider inferior ischemia ST & T wave abnormality, consider anterolateral ischemia Confirmed by GONZALO CERVANTES, CARA ([id number]), commercial production editor SEAN WEBB ([id number]) on 03/12/2021 9:36:58 AM Referred By: PEBBLES Confirmed By:CARA SÁNCHEZ MD
[2021-03-08] MEDS: Morphine 2 MG/ML Syringe IV (06:36)
[2021-03-08] MEDS: Mag Hydrox/Al Hydrox/Simeth 30 ML UDC PO (07:09)
[2021-03-08] MEDS: Nitroglycerin (INPATIENT USE) 0.4 MG TAB.SUBL SL (07:35)
[2021-03-08] MEDS: 0.9% Normal Saline 1,000 ML 100 ML IV (07:39)
--- NOTE | 2021-03-08 08:01 | NURSING ---
Pt reports chest pain has improved to a 5/10. bpm is at 91/58 hr 98. Oncoming and charge nurse aware.
[2021-03-08 08:02] LABS: Partial Thromboplast Time 31.9 Seconds (24.1-36.2)
[2021-03-08 08:13] LABS: Troponin-I HS 190 pg/mL (3.0-78.0)
[2021-03-08] MEDS: Heparin Injection (Vial) 5,000 UNIT/ML VIAL 6000 UNIT IV (08:32)
--- NOTE | 2021-03-08 08:38 | PCM.CONS.R ---
Assessment & Plan Assessment/Plan (1) End-stage renal disease on hemodialysis: PLAN: missed dialysis , arrange dialysis today after heart cath (2) Acute exacerbation of chronic obstructive pulmonary disease: PLAN: continues to smoke (3) Chest pain: QUALIFIERS: Chest pain type: unspecified Qualified Code(s): R07.9 - Chest pain, unspecified PLAN: heart cath today (4) Elevated troponin: (5) Benign hypertension: (6) Alcoholic cardiomyopathy: (7) Nicotine dependence: QUALIFIERS: Nicotine product type: cigarettes Substance use status: uncomplicated Qualified Code(s): F17.210 - Nicotine dependence, cigarettes, uncomplicated PLAN: continues to smoke (8) Chronic obstructive pulmonary disease: QUALIFIERS: COPD type: chronic bronchitis Chronic bronchitis type: mucopurulent Qualified Code(s): J41.1 - Mucopurulent chronic bronchitis HPI Consult Data Date of Consult: 03/08/21 HPI Narrative HPI Narrative: ALEJA RICHARD, is a 65 M with ESRD on HD TTS, last dialysis on Friday, missed treatment on Friday with history of noncompliance with dialysis. He presents with chest pain, COPD exacerbation, wheezing, nonproductive cough without fever, chills. Consulted for renal mgmt, arrange dialysis today in hospital. He continues to smoke. He is scheduled for heart cath today. He describes the chest discomfort as diffuse across the chest, nonradiating. He has alcoholic CMP. O2 saturation 87% on room air, chest x-ray with chronic interstitial lung disease with chronic pleural-parenchymal changes in the left lung base with no acute cardiopulmonary findings otherwise, rapid Covid negative. Cardiac troponin elevated. REPLACED BY [facility] Medical History (Updated 03/08/21 @ 06:[address] Saranya Shirley MD) Adrenal adenoma Alcohol addiction Alcoholic cardiomyopathy Atrial fibrillation with rapid ventricular response (04/2019) Back pain Benign hypertension BPH (benign prostatic hyperplasia) Cardiomyopathy in diseases classified elsewhere Chronic obstructive pulmonary disease Chronic renal failure, stage 4 (severe) Chronic serous otitis media of left ear COPD (chronic obstructive pulmonary disease) Current drinker of alcohol Diverticulosis ESRD (end stage renal disease) on dialysis Hiatal hernia Hyperlipidemia Nicotine dependence Paroxysmal atrial fibrillation Persistent atrial fibrillation PKD (polycystic kidney disease) Problem with dialysis access Home Medications lovastatin 20 mg tablet 40 mg PO QHS 05/09/17 [History Last Taken 09/17/17] tamsulosin 0.4 mg PO DAILY 05/09/17 [History Last Taken 09/17/17] nitroglycerin 0.4 mg sublingual tablet 0.4 mg SUBLINGUAL Q5-15M PRN #25 tab 04/22/19 [Rx Last Taken Unknown] loratadine 10 mg PO DAILY 05/03/19 [History Last Taken Unknown] acetaminophen 650 mg PO Q8H PRN PRN 05/12/19 [History Last Taken Unknown] albuterol sulfate 2 mg/5 mL oral syrup 2 mg PO TID 12/15/19 [History Last Taken Unknown] furosemide 20 mg tablet 20 mg PO DAILY tab 12/28/19 [History Last Taken Unknown] gabapentin 300 mg capsule 100 mg PO BID cap 12/28/19 [History Last Taken Unknown] hydroxyzine HCl 50 mg tablet 50 mg PO QHS tab 12/28/19 [History Last Taken Unknown] sevelamer carbonate 800 mg tablet 1,600 mg PO TID 12/28/19 [History Last Taken Unknown] metoprolol tartrate 25 mg tablet 50 mg PO BID 90 Days #360 tab 03/29/20 [Rx Last Taken Unknown] Acapella #1 ea 04/05/20 [Rx Last Taken Unknown] albuterol sulfate 90 mcg/actuation aerosol inhaler 2 puff INHALATION Q4H PRN PRN #18 g 04/14/20 [Rx Last Taken Unknown] fluticasone 250 mcg-salmeterol 50 mcg/dose blistr powdr for inhalation 1 inh INHALATION BID #60 ea 04/14/20 [Rx Last Taken Unknown] diltiazem HCl 240 mg capsule,extended release 24 hr 240 mg PO DAILY #30 cap 06/19/20 [Rx Last Taken Unknown] tiotropium bromide 2.5 mcg/actuation mist for inhalation 2 puff INHALATION QDAY #3 ea 06/30/20 [Rx Last Taken Unknown] electric wheel chair #1 ea 07/03/20 [Rx Last Taken Unknown] ondansetron 4 mg PO Q8H PRN PRN #10 tab 08/16/20 [Rx Last Taken Unknown] cetirizine 10 mg PO DAILY 03/08/21 [History Last Taken Unknown] sertraline 100 mg PO DAILY 03/08/21 [History Last Taken Unknown] Allergy/AdvReac Type Severity Reaction Status Date / Time Penicillins Allergy Unknown Verified 08/16/20 22:01 Family History Mother Cancer brain Father Cancer throat Surgical History History of angioplasty of peripheral vessel (07/2019) Surgically constructed arteriovenous fistula Social History (Updated 03/08/21 @ 06:[address] Saranya Shirley MD) household members: none housing: apartment Smoking Status: Current every day smoker tobacco type: cigarettes Smoking packs per day: 1 Smoking cigarettes per day: 20.0 alcohol intake: current Alcohol type: beer details: Notes 2-3 beers, QOD substance use type: does not use ROS Constitutional Constitutional: Denies chills or fever(s) Cardiovascular Cardiovascular: Reports chest pain Respiratory/Chest Respiratory/Chest: Reports productive cough Gastrointestinal Gastrointestinal: Denies nausea or vomiting Musculoskeletal Musculoskeletal: Reports other Details: weakness, chronic Physical Exam Const alert and oriented x3 Resp Auscultation: rhonchi and wheezes Cardio regular rate GI non-tender and non-distended Palpation: soft Extremity General Extremity: edema bilateral Psych cooperative Lab / Micro Data Result Diagrams: 03/08/21 03:33 03/08/21 03:33 Labs: Laboratory Results - last 24 hr 03/08/21 03:33: WBC 6.6, RBC 3.18 L, Hgb 9.9 L, Hct 30.1 L, MCV 94.7 H, MCH 31.1, MCHC 32.9, RDW Std Deviation 49.2 H, RDW Coeff of Karl 14.4, Plt Count 232, MPV 10.3, Immature Gran % (Auto) 0.500, Neut % (Auto) 68.7, Lymph % (Auto) 17.8 L, Harmon % (Auto) 9.1, Eos % (Auto) 3.3, Baso % (Auto) 0.6, Absolute Neuts (auto) 4.5, Absolute Lymphs (auto) 1.17, Nucleated RBC % 0 03/08/21 03:33: Sodium 123 L, Potassium 3.9, Chloride 86 L, Carbon Dioxide 25.0, Anion Gap 12, BUN 31 H, Creatinine 6.36 H, Estim Creat Clear Calc 12.28, Est GFR (MDRD) Af Amer 12 L, Est GFR (MDRD) Non-Af 10 L, BUN/Creatinine Ratio 4.9 L, Glucose 103, Calcium 8.2 L 03/08/21 03:33: Troponin I High Sens 261 H* 03/08/21 03:33: Phosphorus 5.5 H, Magnesium 1.9 03/08/21 03:33: Procalcitonin 0.69 H 03/08/21 07:20: Troponin I High Sens 190 H* 03/08/21 07:20: APTT 31.9 Micro: Microbiology 03/08/21 03:27 Nasal Secretion SARS-CoV-2 Antigen (Rapid) - Final ABG Data ABG results: ABG 03/08/21 03:42 Specimen Type TYRONE VBG pH 7.41 VBG pO2 53 H VBG HCO3 23 VBG Total CO2 24 VBG O2 Sat (Calc) 87 H VBG Base Excess -2 L POC Mix VBG pCO2 Pt Tmp 35.2 L O2 Delivery Device Room Air Radiology Impression Chest X-Ray 03/08/21 03:22 IMPRESSION: Chronic interstitial lung disease. Chronic pleural and parenchymal changes in the left lung base. No new abnormalities are identified. Electronically Signed: Kar Morelos MD at 4:06 EDT , Service support ,
[2021-03-08] MEDS: HEPARIN/D5w 25,000 UNITS 25,000 UNITS/250 ML IV.SOLN. 12 UNITS IV (08:44)
--- NOTE | 2021-03-08 08:55 | PCM.CONS.C ---
Assessment & Plan Assessment/Plan (1) Elevated troponin: PLAN: The patient has an elevated troponin I level. This appears compatible with a non-ST segment elevation OR. It is unclear whether this is a type I event versus a potential type II event brought out by his noncardiovascular condition superimposed upon his known cardiovascular disease process. At the moment based upon the patient's history and objective findings he will continue to be monitored. He will continue medical therapy as deemed appropriate and tolerated. He may need to be considered for further evaluation with both noninvasive and invasive studies such as diagnostic cardiac catheterization. (2) Chest pain: QUALIFIERS: Chest pain type: unspecified Qualified Code(s): R07.9 - Chest pain, unspecified PLAN: The patient does have chest discomfort. Based upon the description it is concerning for unstable angina pectoris. Based upon his clinical course and findings he will continue cardiovascular monitoring, medical therapy, and consideration for further evaluation with both noninvasive and invasive studies as deemed appropriate. (3) Alcoholic cardiomyopathy: PLAN: He has a history of a cardiomyopathy thought secondary to alcohol intoxication. He has been asked to have an echocardiogram to reassess his left ventricular wall motion and systolic function. (4) Paroxysmal atrial fibrillation: PLAN: He is remaining in sinus rhythm at the moment. He will continue medical therapy and follow-up as deemed appropriate. (5) Hyperlipidemia: QUALIFIERS: Hyperlipidemia type: unspecified Qualified Code(s): E78.5 - Hyperlipidemia, unspecified PLAN: He will continue medical management. (6) Benign hypertension: PLAN: His blood pressure will be followed and his medications can be adjusted based upon his blood pressure response. (7) ESRD (end stage renal disease) on dialysis: PLAN: He is going to continue under nephrology for his dialysis therapy. Addt'l Comments Comment: The patient's case was discussed and reviewed with the patient. He was agreeable to further cardiovascular evaluation care as deemed appropriate. This note was generated using a voice recognition system and there may be incorrect words, spelling or punctuation that were not noted when reviewing the office note prior to saving. HPI Consult Data Date of Consult: 03/08/21 HPI Narrative HPI Narrative: ALEJA RICHARD, is a 65 year old white male who presents for cardiovascular consultation based upon concerns of chest discomfort, abnormal cardiac enzymes, and abnormal ECGs superimposed upon a history of a reported non-CAD related cardiomyopathy, paroxysmal atrial fibrillation, hyperlipidemia, hypertension, end-stage renal disease on chronic hemodialysis. The patient states he has been having for months chest discomfort which he describes as precordial and then radiates to his left shoulder and down his left upper extremity associated with shortness of breath and dyspnea as well as nausea. These episodes can wax and wane and occur at any time. He denies any acute orthopnea or PND or ongoing peripheral pitting edema. There is been no near syncope or syncope. He states he has been taking his medications as prescribed and continuing with dialysis on a Friday basis as prescribed. He presented to [facility] for further evaluation. He was found to have abnormal cardiac enzymes. His ECG demonstrated sinus rhythm with ST and T wave changes potentially compatible with myocardial ischemia in the vdfmukzf-twhkikn-jeapsjwp distributions. He was placed in the PCU for further evaluation and care. He did under COVID-19 evaluation which was reported as negative. [facility] Medical History (Updated 03/08/21 @ 06:[address] Saranya Shirley MD) Adrenal adenoma Alcohol addiction Alcoholic cardiomyopathy Atrial fibrillation with rapid ventricular response (04/2019) Back pain Benign hypertension BPH (benign prostatic hyperplasia) Cardiomyopathy in diseases classified elsewhere Chronic obstructive pulmonary disease Chronic renal failure, stage 4 (severe) Chronic serous otitis media of left ear COPD (chronic obstructive pulmonary disease) Current drinker of alcohol Diverticulosis ESRD (end stage renal disease) on dialysis Hiatal hernia Hyperlipidemia Nicotine dependence Paroxysmal atrial fibrillation Persistent atrial fibrillation PKD (polycystic kidney disease) Problem with dialysis access Home Medications lovastatin 20 mg tablet 40 mg PO QHS 05/09/17 [History Last Taken 09/17/17] tamsulosin 0.4 mg PO DAILY 05/09/17 [History Last Taken 09/17/17] nitroglycerin 0.4 mg sublingual tablet 0.4 mg SUBLINGUAL Q5-15M PRN #25 tab 04/22/19 [Rx Last Taken Unknown] loratadine 10 mg PO DAILY 05/03/19 [History Last Taken Unknown] acetaminophen 650 mg PO Q8H PRN PRN 05/12/19 [History Last Taken Unknown] albuterol sulfate 2 mg/5 mL oral syrup 2 mg PO TID 12/15/19 [History Last Taken Unknown] furosemide 20 mg tablet 20 mg PO DAILY tab 12/28/19 [History Last Taken Unknown] gabapentin 300 mg capsule 100 mg PO BID cap 12/28/19 [History Last Taken Unknown] hydroxyzine HCl 50 mg tablet 50 mg PO QHS tab 12/28/19 [History Last Taken Unknown] sevelamer carbonate 800 mg tablet 1,600 mg PO TID 12/28/19 [History Last Taken Unknown] metoprolol tartrate 25 mg tablet 50 mg PO BID 90 Days #360 tab 03/29/20 [Rx Last Taken Unknown] Acapella #1 ea 04/05/20 [Rx Last Taken Unknown] albuterol sulfate 90 mcg/actuation aerosol inhaler 2 puff INHALATION Q4H PRN PRN #18 g 04/14/20 [Rx Last Taken Unknown] fluticasone 250 mcg-salmeterol 50 mcg/dose blistr powdr for inhalation 1 inh INHALATION BID #60 ea 04/14/20 [Rx Last Taken Unknown] diltiazem HCl 240 mg capsule,extended release 24 hr 240 mg PO DAILY #30 cap 06/19/20 [Rx Last Taken Unknown] tiotropium bromide 2.5 mcg/actuation mist for inhalation 2 puff INHALATION QDAY #3 ea 06/30/20 [Rx Last Taken Unknown] electric wheel chair #1 ea 07/03/20 [Rx Last Taken Unknown] ondansetron 4 mg PO Q8H PRN PRN #10 tab 08/16/20 [Rx Last Taken Unknown] cetirizine 10 mg PO DAILY 03/08/21 [History Last Taken Unknown] sertraline 100 mg PO DAILY 03/08/21 [History Last Taken Unknown] Allergy/AdvReac Type Severity Reaction Status Date / Time Penicillins Allergy Unknown Verified 08/16/20 22:01 Family History Mother Cancer brain Father Cancer throat Surgical History History of angioplasty of peripheral vessel (07/2019) Surgically constructed arteriovenous fistula Social History (Updated 03/08/21 @ 06:[address] Saranya Shirley MD) household members: none housing: apartment Smoking Status: Current every day smoker tobacco type: cigarettes Smoking packs per day: 1 Smoking cigarettes per day: 20.0 alcohol intake: current Alcohol type: beer details: Notes 2-3 beers, QOD substance use type: does not use ROS Constitutional Constitutional: Reports as per HPI Eyes Eyes: Reports as per HPI ENT HEENT: Reports as per HPI Cardiovascular Cardiovascular: Reports chest pain, chest pain at rest, dyspnea, dyspnea at rest and nausea Respiratory/Chest Respiratory/Chest: Reports dyspnea Gastrointestinal Gastrointestinal: Reports nausea Genitourinary Genitourinary: Reports as per HPI Musculoskeletal Musculoskeletal: Reports as per HPI Physical Exam Const alert and oriented x3 Orientation / Consciousness: awake HEENT normocephalic, head/scalp atraumatic and hearing grossly normal bilaterally Eyes PERRL, EOMs intact bilaterally and conjunctivae normal Neck full ROM, supple and no JVD Resp Auscultation: rhonchi throughout Cardio regular rate, regular rhythm, S1 normal heart sound and S2 normal heart sound GI normal to inspection, nondistended, normoactive bowel sounds Extremity Extremity Narrative: Left upper extremity/arm: AV fistula Neuro oriented x3 and moves all extremities Psych mental status grossly normal Procedure Criteria Type of Procedure Procedure Type: Elective Elective Risks - COVID COVID Risk Discussion: The surgeon/proceduralist and patient have discussed in detail the risk of exposure to and/or potential harm posed by the COVID-19 virus with having a surgery/procedure at this time versus the risk of delaying the surgery/procedure. It is not possible to know either the risk of delaying the surgery or procedure or chance of getting an infection with perfect accuracy, but a joint decision was made between the patient and the surgeon/proceduralist to proceed at this time with the scheduled surgery/procedure as indicated on the consent form. Objective Data Vital Signs: Vital Signs Temp Pulse Resp BP Pulse Ox 98.2 F 103 H 18 112/71 97 03/08/21 08:27 03/08/21 08:27 03/08/21 08:27 03/08/21 08:27 03/08/21 08:27 Oxygen Flow Rate (L/min) 3 Oxygen Delivery Method Nasal Cannula Weight: 184 lb 4.903 oz Body Mass Index (BMI) 28.8 Intake & Output: Intake and Output for Last 24 Hours 03/06/21 03/07/21 03/08/21 23:59 23:59 23:59 Intake Total 120 / 120 Balance 120 / 120 Lab / Micro Data Result Diagrams: 03/08/21 03:33 03/08/21 03:33 Labs: Laboratory Results - last 24 hr 03/08/21 03:33: WBC 6.6, RBC 3.18 L, Hgb 9.9 L, Hct 30.1 L, MCV 94.7 H, MCH 31.1, MCHC 32.9, RDW Std Deviation 49.2 H, RDW Coeff of Karl 14.4, Plt Count 232, MPV 10.3, Immature Gran % (Auto) 0.500, Neut % (Auto) 68.7, Lymph % (Auto) 17.8 L, [place] % (Auto) 9.1, Eos % (Auto) 3.3, Baso % (Auto) 0.6, Absolute Neuts (auto) 4.5, Absolute Lymphs (auto) 1.17, Nucleated RBC % 0 03/08/21 03:33: Sodium 123 L, Potassium 3.9, Chloride 86 L, Carbon Dioxide 25.0, Anion Gap 12, BUN 31 H, Creatinine 6.36 H, Estim Creat Clear Calc 12.28, Est GFR (MDRD) Af Amer 12 L, Est GFR (MDRD) Non-Af 10 L, BUN/Creatinine Ratio 4.9 L, Glucose 103, Calcium 8.2 L 03/08/21 03:33: Troponin I High Sens 261 H* 03/08/21 03:33: Phosphorus 5.5 H, Magnesium 1.9 03/08/21 03:33: Procalcitonin 0.69 H 03/08/21 07:20: Troponin I High Sens 190 H* 03/08/21 07:20: APTT 31.9 Micro: Microbiology 03/08/21 03:27 Nasal Secretion SARS-CoV-2 Antigen (Rapid) - Final ABG Data ABG results: ABG 03/08/21 03:42 Specimen Type TYRONE VBG pH 7.41 VBG pO2 53 H VBG HCO3 23 VBG Total CO2 24 VBG O2 Sat (Calc) 87 H VBG Base Excess -2 L POC Mix VBG pCO2 Pt Tmp 35.2 L O2 Delivery Device Room Air Cardiology Labs/Tests 03/08/21 03:33: WBC 6.6, RBC 3.18 L, Hgb 9.9 L, Hct 30.1 L, MCV 94.7 H, MCH 31.1, MCHC 32.9, Plt Count 232, MPV 10.3, Immature Gran % (Auto) 0.500, Neut % (Auto) 68.7, Lymph % (Auto) 17.8 L, [place] % (Auto) 9.1, Eos % (Auto) 3.3, Baso % (Auto) 0.6, Absolute Neuts (auto) 4.5, Nucleated RBC % 0 03/08/21 03:33: Sodium 123 L, Potassium 3.9, Chloride 86 L, Carbon Dioxide 25.0, Anion Gap 12, BUN 31 H, Creatinine 6.36 H, Est GFR (MDRD) Af Amer 12 L, Est GFR (MDRD) Non-Af 10 L, BUN/Creatinine Ratio 4.9 L, Glucose 103, Calcium 8.2 L 03/08/21 03:33: Phosphorus 5.5 H, Magnesium 1.9 03/08/21 03:42: VBG pH 7.41, VBG pO2 53 H, VBG HCO3 23, VBG O2 Sat (Calc) 87 H, VBG Base Excess -2 L 03/08/21 07:20: APTT 31.9 Rhythm: Sinus rhythm EKG: As noted above Stress Test: 08-16-2017 Stress Test Report Pharmacologic myocardial perfusion stress test 61-year-old man with a history of chest pain. Stress protocol: Resting EKG demonstrates normal sinus rhythm with a rate of 69 bpm normal intervals noted. Resting blood pressure is 164/70 mmHg. 0.4 mg of regadenoson was infused per usual protocol followed by rapid intravenous saline flush injection. Continuous EKG monitoring was performed. At rest there were no ST or T-wave changes noted to suggest abnormal flow reserve. At peak infusion no ST or T-wave changes were noted suggest abnormal flow reserve. No clinical angina was noted. Blood pressure was 164/70 with a final blood pressure of 180/80 mmHg. Myocardial perfusion protocol: 12.0 mCi of technetium 99m sestamibi was injected at rest. 0.4 mg regadenoson was infused per usual protocol. At peak infusion 36.0 mCi of technetium 99m sestamibi was injected. Stress images were obtained. Stress and rest images were reconstructed and compared in the short axis vertical long and horizontal long axis. Gated images were also obtained. Perfusion SPECT analysis: Review of the stress images demonstrate normal uptake of tracer noted in all areas of the myocardium. There is mildly reduced perfusion on the inferior wall on the stress images however the resting images demonstrate a similar patent no obvious ischemia is noted. No previous infarct is present. Gated SPECT analysis: The gated ejection fraction is noted to be approximately 43%. Global hypokinesis is present. Conclusion: Normal pharmacologic myocardial perfusion stress test. Mild cardiomyopathy. Radiography Diagnostic Testing: Radiology Impression Chest X-Ray 03/08/21 03:22 IMPRESSION: Chronic interstitial lung disease. Chronic pleural and parenchymal changes in the left lung base. No new abnormalities are identified. Electronically Signed: Kar Morelos MD at 4:06 EDT , Service support ,
[2021-03-08] MEDS: Metoprolol Tartrate 50 MG Tablet PO ×2 (09:27→20:44)
[2021-03-08] MEDS: dilTIAZem CD 240 MG Capsule PO (09:27)
[2021-03-08] MEDS: Aspirin E.C. 81 MG Tablet PO (09:27)
[2021-03-08] MEDS: SEVELAMER CARBONATE 800 MG TABLET PO ×2 (09:27→20:42)
[2021-03-08 10:03] LABS: Troponin-I HS 190 pg/mL (3.0-78.0)
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
[2021-03-08] MEDS: oxyCODONE 5 MG Tablet PO ×2 (11:17→20:40)
[2021-03-08] MEDS: 0.9% Normal Saline 1,000 ML 15 ML IV (11:59)
--- NOTE | 2021-03-08 12:56 | CL.D_ITS ---
Patient Name: ALEJA RICHARD Study Date: 03/08/2021 Performing: Iban Valdez MD Ht: 66.92 inches 170 cm : 1955 Wt: 185.19 lbs 84 kg Age: 65 Gender: male BSA: 1.96 PROCEDURE(S) PERFORMED [id number] W OR WO PTCA, SINGLE CORONARY ARTERY CLINICAL PROFILE AND INDICATIONS Indications: Suspected CAD Heart Failure: NYHA Class: 3, Newly Diagnosed: Yes, Heart Failure Type: Systolic Stress/Imaging Stress/Image Study Performed: No CONCLUSIONS Coronary disease with significant left circumflex artery lesion and totally occluded right coronary a rtery with left to right collaterals. RECOMMENDATIONS Referred for immediate PCI DESCRIPTION OF PROCEDURE The patient arrived to the procedure lab. The risks and benefits of the procedure as well as a full d escription of our services here and current unavailability of surgical backup were fully explained to the patient and/or their significant other prior to the catheterization. The Timeout was completed, verifying the correct patient and procedure. The patient's procedural site was prepped and draped in the usual fashion. Local anesthetic was given subcutaneously to right radial region with Lidocaine 2% . Using a modified Seldinger technique, arterial access was obtained via the right radial artery, a 6 Fr sheath was inserted. Left Coronary Artery selective angiography was performed in multiple views u sing a 5 Fr. 4.0 [place] catheter. Right Coronary Artery selective angiography was then performed in mu ltiple views using a 5 Fr. 4.0 [place] catheter. LV to AO pullback pressures were then recorded. CORONARY ANGIOGRAPHY DOMINANCE: Right Dominant LEFT HEART ASSESSMENT Left Ventricular Ejection Fraction: by Echo 40 % LEFT MAIN: Mild calcification, No significant disease noted LEFT ANTERIOR DESCENDING ARTERY: Mild luminal irregularities less than 30% OSTIAL LAD: 40 % Stenosis CIRCUMFLEX ARTERY: MID CIRC: 70 hazy % Stenosis RIGHT CORONARY ARTERY: PROX RCA: is occluded COLLATERAL FLOW: Collateral flow from Left to Right COMPLICATIONS PROCEDURE MEDICATIONS Versed 0.5 mg IV Fentanyl 25 mcg IV Fentanyl 50 mcg IV Versed 0.5 mg IV Versed 1 mg IV Oxygen: 3 L/min via nasal cannula Brilinta 180 mg PO @ 03/08/2021 12:49:40 Heparin 5000 unit(s) IV 03/08/2021 12:51:48 SUMMARY OF HEMODYNAMIC DATA Time AIR REST ECG 12:14:01 AO 100/67 (80) SA 12:35:23 LV 105/22, 32 12:42:20 LV 105/24, 34 12:42:27 LVp 101/15, 25 12:42:35 AOp 106/66 (83) 12:42:40 Signed By Iban Valdez MD On 03/08/2021 12:55:35 PM Iban Valdez MD
--- NOTE | 2021-03-08 13:31 | CL.I_ITS ---
Patient Name: ALEJA RICHARD Study Date: 03/08/2021 Performing: Kumar Marie MD Ht: 67 inches 170 cm : 1955 Wt: 185.4 lbs 84 kg Age: 65 Gender: male BSA: 1.96 PROCEDURE(S) PERFORMED [id number] W OR WO PTCA, SINGLE CORONARY ARTERY CLINICAL PROFILE AND CO-MORBIDITIES Indications: Suspected CAD Heart Failure: NYHA Class: 3, Newly Diagnosed: Yes, Heart Failure Type: Systolic Stress/Imaging Stress/Image Study Performed: No CONCLUSIONS Successful BMS to pLCx RECOMMENDATIONS DESCRIPTION OF PROCEDURE The patient arrived to the procedure lab. The risks and benefits of the procedure as well as a full d escription of our services here and current unavailability of surgical backup were fully explained to the patient and/or their significant other prior to the catheterization. The Timeout was completed, verifying the correct patient and procedure. The patient's procedural site was prepped and draped in the usual fashion. Local anesthetic was given subcutaneously to right radial region with Lidocaine 2% Using a modified Seldinger technique,arterial access was obtained via the right radial artery, a 6Fr sheath was inserted. Left Coronary Artery selective angiography was performed in multiple views usin g a 5 Fr. 4.0 [place] catheter. Right Coronary Artery selective angiography was then performed in multi ple views using a 5 Fr. 4.0 [place] catheter. LV to AO pullback pressures were then recorded. XB 3 Guide catheter was inserted and engaged into the LCA. BMW Guide wire was advanced to the Cir cumflex. 3.5 x 12 Emerge Balloon catheter was advanced across lesion in the circumflex, proximal. PTC A balloon inflated at 10 atms for 23 secs. Angiogram performed post balloon dilatation. Rebel 3.5 x 1 2 Bare Metal stent was advanced across the lesion in the circumflex, proximal. Angiogram performed po st stent deployment. The arterial sheath was pulled and a TR Band was applied for hemostasis INTERVENTION INFORMATION LESION SITE: Circumflex (Proximal) Lesion Complexity: High/C, Lesion Complexity: High/C, chronic total occlusion: No, lesion at bifurcat ion: No, thrombus present: No, lesion length: 11 mm, culprit lesion: Yes, Previously treated lesion: No Pre Stenosis: 80 % Pre intervention DEVI flow: 3 PROCEDURE: Bare Metal Stent with pre dilatation. Post Stenosis: 0 % Post intervention DEVI flow: 3 Lesion Devices: Cardinal 6 Fr XB3.0 100cm Guide Catheter Sanchez .[address] [place] Straight 190cm Andrew Sci Rebel MR BMS 3.50x12 Andrew Sci EMERGE MR 3.50x12 BALLOON COMPLICATIONS No Complications PROCEDURE MEDICATIONS Versed 0.5 mg IV Fentanyl 25 mcg IV Fentanyl 50 mcg IV Versed 0.5 mg IV Versed 1 mg IV Oxygen: 3 L/min via nasal cannula Brilinta 180 mg PO @ 03/08/2021 12:49:40 Heparin 5000 unit(s) IV 03/08/2021 12:51:48 SUMMARY OF HEMODYNAMIC DATA Time AIR REST ECG 12:14:01 AO 100/67 (80) SA 12:35:23 LV 105/22, 32 12:42:20 LV 105/24, 34 12:42:27 LVp 101/15, 25 12:42:35 AOp 106/66 (83) 12:42:40 AO 117/70 (89) 13:09:16 Signed By Kumar Marie MD On 03/08/2021 15:31:46 Kumar Marie MD
[2021-03-08] MEDS: 0.9% Normal Saline 1,000 ML 60 ML IV (13:37)
--- NOTE | 2021-03-08 14:05 | CRPHASE1_ITS ---
Patient Communication PHII Cardiac Rehab Discussed with Patient:: Yes Guide to Cardiac Rehab Given to Patient:: Yes Cardiac Rehab Facility Choice List Given to Patient:: Yes Choice Program [facility] CR PHII:: Communication Given to CR Choice Program Other:: Communication Given to CR Web Ui Software Engineer:: Patricio Marie Refer Phase II Cardiac Rehab:: Yes Sessions:: 36 sessions - 3 days/wk, 12 weeks Cardiac Rehabilitation Info Cardiac Rehabilitation Program Information: Cardiac Rehabilitation is important for patients like you who are recovering from a heart problem. Cardiac rehabilitation programs are recognized as integral to the continued care of the patient with coronary heart disease. The cardiac rehabilitation program is designed to optimize a patient's physical, psychological, and social functioning. Health congregational care pastor work in cardiac rehabilitation programs and assist you with getting the treatments you need to get stronger and healthier - like exercise, healthy eating habits, and medications. Cardiac rehabilitation has been show to help people with heart problems live longer and have better life enjoyment than people who do not go to cardiac rehabilitation. Please contact the Cardiac Rehabilitation Program at [facility] at in two weeks if you have not heard from them.
--- NOTE | 2021-03-08 14:05 | CRPH1.INSTRU ---
General Education CAD and cardiac anatomy and function:: Patient communicates acknowledgment Explanation of diagnoses and procedures:: Patient communicates acknowledgment Sign/Symptoms of PR:: Patient communicates acknowledgment Antiplatelet therapy: Patient communicates acknowledgment Smoking Patient Nicotine/Smoking Risk Factors Are:: Cigarettes Recommendations Include:: Smoking cessation strategies/Smoking packet, Participation in a smoking cessation program, Previous smoker; encourage continued cessation Nicotine/Smoking Response Code:: Patient communicates acknowledgment Dyslipidemia Patient Dyslipidemia Risk Factors Are:: Total Cholesterol, Triglycerides, HDL, LDL Recommendations Include:: Lipid profile provided, Reviewed NCEP/ATP guidelines, Therapeutic Lifestyle Change dietary guidelines Dyslipidemia Response Code:: Patient communicates acknowledgment Overweight/Obesity Patient Overweight/Obesity Risk Factors Are:: Overweight = 26-29 Recommendations Include:: Weight loss of 5-10%, Reduced calorie diet, Exercise 5-7 times/week Overweight/Obesity:: Patient communicates acknowledgment Hypertension Patient Hypertension Risk Factors Are:: No documented hx of HTN Diabetes Patient Diabetes Risk Factors Are:: No documented hx of diabetes Recommendations Include:: Maintain fasting blood sugars 70-110 md/dL, Diabetic dietary guidelines, Decrease/maintain body weight Diabetes:: Patient communicates acknowledgment Sedentary Patient Sedentary Risk Factors Are:: Lack of regular exercise Recommendations Include:: Aerobic exercise 5-7 times/week for 20-30 minutes continuously, Benefits of regular exercise, Discussed home walking program, Monitored Outpatient Cardiac Rehab Sedentary Response Code:: Patient communicates acknowledgment Stress Patient Stress Risk Factors Are:: Patient denies stress as a risk factor
--- NOTE | 2021-03-08 14:42 | PN.HOSP_ITS ---
Subjective Subjective Patient seen and examined. He still complains of shortness of breath and wheezing. Review of systems is otherwise negative. He has remained hemodynamically stable. Objective Data Objective Data Vital Signs: Vital Signs Temp Pulse Resp BP Pulse Ox 98.1 F 81 16 107/72 97 03/08/21 14:00 03/08/21 14:32 03/08/21 14:32 03/08/21 14:32 03/08/21 14:32 Oxygen Flow Rate (L/min) 4 Oxygen Delivery Method Nasal Cannula Weight: 184 lb 4.903 oz Body Mass Index (BMI) 28.8 Intake & Output: Intake and Output for Last 24 Hours 03/06/21 03/07/21 03/08/21 23:59 23:59 23:59 Intake Total 702.45 / 702.45 Balance 702.45 / 702.45 Lab / Micro Data Result Diagrams: 03/08/21 03:33 03/08/21 03:33 Labs: Laboratory Results - last 24 hr 03/08/21 03:33: WBC 6.6, RBC 3.18 L, Hgb 9.9 L, Hct 30.1 L, MCV 94.7 H, MCH 31.1, MCHC 32.9, RDW Std Deviation 49.2 H, RDW Coeff of Karl 14.4, Plt Count 232, MPV 10.3, Immature Gran % (Auto) 0.500, Neut % (Auto) 68.7, Lymph % (Auto) 17.8 L, [place] % (Auto) 9.1, Eos % (Auto) 3.3, Baso % (Auto) 0.6, Absolute Neuts (auto) 4.5, Absolute Lymphs (auto) 1.17, Nucleated RBC % 0 03/08/21 03:33: Sodium 123 L, Potassium 3.9, Chloride 86 L, Carbon Dioxide 25.0, Anion Gap 12, BUN 31 H, Creatinine 6.36 H, Estim Creat Clear Calc 12.28, Est GFR (MDRD) Af Amer 12 L, Est GFR (MDRD) Non-Af 10 L, BUN/Creatinine Ratio 4.9 L, Glucose 103, Calcium 8.2 L 03/08/21 03:33: Troponin I High Sens 261 H* 03/08/21 03:33: Phosphorus 5.5 H, Magnesium 1.9 03/08/21 03:33: Procalcitonin 0.69 H 03/08/21 07:20: Troponin I High Sens 190 H* 03/08/21 07:20: APTT 31.9 03/08/21 09:30: Troponin I High Sens 190 H* Micro: Microbiology 03/08/21 06:53 Mucosa - Nose Respiratory Panel (PCR) - Final 03/08/21 03:27 Nasal Secretion SARS-CoV-2 Antigen (Rapid) - Final ABG Data ABG results: ABG 03/08/21 03:42 Specimen Type TYRONE VBG pH 7.41 VBG pO2 53 H VBG HCO3 23 VBG Total CO2 24 VBG O2 Sat (Calc) 87 H VBG Base Excess -2 L POC Mix VBG pCO2 Pt Tmp 35.2 L O2 Delivery Device Room Air Radiography Diagnostic Testing: Radiology Impression Chest X-Ray 03/08/21 03:22 IMPRESSION: Chronic interstitial lung disease. Chronic pleural and parenchymal changes in the left lung base. No new abnormalities are identified. Electronically Signed: Kar Morelos MD at 4:06 EDT , Service support , Physical Exam Const alert, oriented x3 and no apparent distress Exam Limitations: no limitations HEENT head/scalp atraumatic and moist oral mucous membranes Head and Scalp: normocephalic Eyes PERRL, EOMs intact bilaterally and conjunctivae normal Neck no lymphadenopathy Resp Resp Narrative: coarse crackles in mid and lower lung tee bilaterally, with mild wheezing. on 4L of oxygen by nasal canula Cardio regular rate, regular rhythm, S1 normal heart sound, S2 normal heart sound and no murmurs GI normal to inspection, nondistended, normoactive bowel sounds, soft to palpation, non-tender and non-distended Extremity normal to inspection and full ROM Extremity Narrative: AV fistula with good thrill in LUE Peripheral Pulses: Yes pulses 2+ throughout Skin no rashes or lesions noted Neuro oriented x3, CN's II-XII intact bilaterally and moves all extremities Sensorium / Orientation: awake and alert Psych affect normal Assessment & Plan Assessment/Plan (1) Acute exacerbation of chronic obstructive pulmonary disease: (2) End-stage renal disease on hemodialysis: (3) Non-ST elevation myocardial infarction, initial hospitalization: PLAN: #Nonstemi * initial high sensitivity troponin was elevated, and trended upwards * EKG showed new inverted T waves in the anterior leads * had cardiac cath today which showed significant left circumflex artery lesion and totally occluded RCA with right to left collaterals; s/p PCI * on aspirin and plavix, high intensity statin and metoprolol * cardiology on board * was started on heparin drip on admission, which has now been weaned off. * #acute hypoxic respiratory failure due to COPD exacerbation * on breathing treatment with bronchodilators * on IV solumedrol * titrate oxygen to maintain sats > 90% #ESRD: on HD TTS. Nephrology consulted. #Hypertension; on metoprolol. #History of afib: on cardizem and metoprolol. #Acute on chronic hyponatremia: sodium was 123. This is chronic and could be due to chronic alcohol abuse. #Anxiety and depression; on sertraline #History of alcohol abuse * on alcohol withdrawal protocol. * PO mutivite, folic acid and thiamine. Charges/Coding Visit Charges Inpatient E&M: 50597 Subs Hosp L3
[2021-03-08 15:43] LABS: Partial Thromboplast Time 170.1 Seconds (24.1-36.2)
--- NOTE | 2021-03-08 20:12 | DIALYSIS ---
Hemodialysis x 3hrs 15min. -3000ml UF. Stable t/o. tolerated well. Hemostasis obtained. Report to ANA Juan
[2021-03-08] MEDS: Tamsulosin HCl 0.4 MG Capsule PO (20:41)
[2021-03-08] MEDS: Furosemide 20 MG Tablet PO (20:41)
[2021-03-08] MEDS: Gabapentin 100 MG Capsule PO (20:42)
[2021-03-08] MEDS: Thiamine Hydrochloride 100 MG Tablet PO (20:43)
[2021-03-08] MEDS: hydrOXYzine PAM 25 MG Capsule 50 MG PO (20:43)
[2021-03-08] MEDS: Atorvastatin Calcium 10 MG Tablet PO (20:44)
[2021-03-08] MEDS: Sertraline 100 MG Tablet PO (20:46)
[2021-03-08] MEDS: Clopidogrel Bisulfate 300 MG Tablet 600 MG PO (20:46)
[2021-03-08] MEDS: Folic Acid 1 MG Tablet PO (20:49)
[2021-03-08] MEDS: Loratadine 10 MG Tablet PO (20:49)
--- NOTE | 2021-03-08 23:36 | PCS.PANDOC ---
PANDEMIC DOCUMENTATION INITIATED: Date: 03/08/21 Time: 0600
[2021-03-09] VITALS (18 sets, daily range): BP systolic 97–119; BP diastolic 52–74; PULSE 67–90; RESP 12–22; TEMP 36.5–36.8; O2SAT 94–100
[2021-03-09] MEDS: Albuterol 2.5 MG/3 ML VIAL.NEB. INHALATION (05:25)
[2021-03-09 06:08] LABS: Absolute Lymphocyte Count 0.46 X10^3/uL (0.83-4.51); Hematocrit 25.4 % (40-54); Hemoglobin 8.4 g/dL (13.0-16.5); Lymphocyte # 0.46 X10^3/ul (0.83-4.51); Lymphocyte % 7.8 % (19-41); Mean Corp Hgb Conc 33.1 g/dL (32-36); Mean Corpuscular Hgb 30.8 pg (27.0-32.0); Monocyte# 0.45 X10^3/uL; Monocyte% 7.6 % (0-10); NRBC Flagged by Analyzer 0 % (0-5); Neutrophil # 4.96 X10^3/uL (2.7-7.7); Neutrophil % 83.9 % (47-70); POSITIVE DIFFERENTIAL YES; Platelet Count 229 K/mm3 (150-450); RBC Distribution Width CV 14.4 % (11.6-14.6); RBC Distribution Width SD 48.3 fl (35.1-43.9); Red Blood Count 2.73 M/mm3 (4.6-6.2); White Blood Count 5.9 K/mm3 (4.4-11.0)
--- NOTE | 2021-03-09 06:24 | PN.HOSP_ITS ---
Hospitalist Note Patient with continued coarse breath sounds, had 3 L off with HD day prior. Will place on BIPAP and will administer lasix 40 mg x 1 pending Nephrology re- evaluation.
--- NOTE | 2021-03-09 06:31 | NURSING ---
Dr Shirley was notified of Respiratory recommendation to try bipap to help with pt's breathing. Pt has audible crackles, wheezing.Increased respiratory effort. States will enter orders and discuss with oncoming physician about dialysis again today.
[2021-03-09 06:35] LABS: Differential Indicated SCAN CRITERIA MET
[2021-03-09] MEDS: Furosemide 40 MG/4 ML Vial IV (06:40)
[2021-03-09] MEDS: Ipratropium/Albuterol Sulfate 3 ML AMPUL.NEB INHALATION ×3 (07:06→18:08)
[2021-03-09 07:19] LABS: Hypersegmented Neutrophils 1+
[2021-03-09 07:22] LABS: ALB/GLOB Ratio 0.5 RATIO (0.9-2.4); AST(SGOT) 20 U/L (15-37); Alanine Aminotransfer ALT/SGPT 16 U/L (16-61); Albumin, Serum 1.6 g/dL (3.2-5.0); Alkaline Phosphatase 126 U/L (45-117); Anion Gap 6 (5-15); BUN 20 mg/dL (7-18); BUN/Creat Ratio 5.9 RATIO (10-20); Calcium,Total 7.9 mg/dL (8.5-10.1); Chloride 95 mmol/L (98-107); Cholesterol 203 mg/dL (200); Creatinine, Serum 3.37 mg/dL (0.70-1.30); EST Glomerular Filtration Rate 20 mL/min (>60); Est Glom Filt Rate - Afr Amer 24 mL/min (>60); Estimated Creatinine Clearance 20.98 ml/min; Globulin 3.5 g/dL (2.2-4.2); Glucose 161 mg/dL (74-106); High Density Lipoprotein 53 mg/dL; Potassium 4.8 mmol/L (3.5-5.1); Protein, Total 5.1 g/dL (6.4-8.2); Sodium Level 130 mmol/L (136-145); Triglycerides 77 mg/dL; Very Low Density Lipoprotein 15 mg/dL (5-40)
[2021-03-09] MEDS: SEVELAMER CARBONATE 800 MG TABLET PO ×3 (09:14→17:37)
[2021-03-09] MEDS: Clopidogrel Bisulfate 75 MG Tablet PO (09:14)
[2021-03-09] MEDS: Loratadine 10 MG Tablet PO (09:14)
[2021-03-09] MEDS: Metoprolol Tartrate 50 MG Tablet PO ×2 (09:14→20:05)
[2021-03-09] MEDS: Aspirin E.C. 81 MG Tablet PO (09:14)
[2021-03-09] MEDS: Gabapentin 100 MG Capsule PO ×2 (09:14→20:06)
[2021-03-09] MEDS: Folic Acid 1 MG Tablet PO (09:14)
[2021-03-09] MEDS: Furosemide 20 MG Tablet PO (09:14)
[2021-03-09] MEDS: dilTIAZem CD 240 MG Capsule PO (09:14)
[2021-03-09] MEDS: Multivitamins,Ther W-Minerals Tablet 1 TABLET PO (09:14)
[2021-03-09] MEDS: Thiamine Hydrochloride 100 MG Tablet PO ×2 (09:15→17:39)
--- NOTE | 2021-03-09 09:41 | PN.CARD_ITS ---
Subjective Subjective Patient seen and evaluated. Appears to doing better this morning. Objective Data Vital Signs: Vital Signs Temp Pulse Resp BP Pulse Ox 97.9 F 85 18 117/69 100 03/09/21 08:44 03/09/21 09:14 03/09/21 08:44 03/09/21 09:14 03/09/21 08:44 Oxygen Flow Rate (L/min) 4 Oxygen Delivery Method Nasal Cannula Weight: 181 lb 7.047 oz Body Mass Index (BMI) 28.8 Intake & Output: Intake and Output for Last 24 Hours 03/07/21 03/08/21 03/09/21 23:59 23:59 23:59 Intake Total 1736.45 / 1936.45 320 / 320 Output Total 3000 / 3025 Balance -1263.55 / -1088.55 295 / 295 Lab / Micro Data Result Diagrams: 03/09/21 05:00 03/09/21 05:00 Labs: Laboratory Results - last 24 hr 03/08/21 09:30: Troponin I High Sens 190 H* 03/08/21 15:05: APTT 170.1 H* 03/09/21 05:00: WBC 5.9, RBC 2.73 L, Hgb 8.4 L, Hct 25.4 L, MCV 93.0, MCH 30.8, MCHC 33.1, RDW Std Deviation 48.3 H, RDW Coeff of Karl 14.4, Plt Count 229, MPV 11.0, Immature Gran % (Auto) 0.700, Neut % (Auto) 83.9 H, Lymph % (Auto) 7.8 L, [place] % (Auto) 7.6, Eos % (Auto) 0.0, Baso % (Auto) 0.0, Absolute Neuts (auto) 5.0, Absolute Lymphs (auto) 0.46 L, Nucleated RBC % 0, Diff Path Review May foll, Hypersegmented Neuts 1+ H 03/09/21 05:00: Sodium 130 L, Potassium 4.8, Chloride 95 L, Carbon Dioxide 29.0, Anion Gap 6, BUN 20 H, Creatinine 3.37 H, Estim Creat Clear Calc 20.98, Est GFR (MDRD) Af Amer 24 L, Est GFR (MDRD) Non-Af 20 L, BUN/Creatinine Ratio 5.9 L, Glucose 161 H, Calcium 7.9 L, Total Bilirubin 0.40, AST 20, ALT 16, Alkaline Phosphatase 126 H, Total Protein 5.1 L, Albumin 1.6 L, Globulin 3.5, Albumin/Globulin Ratio 0.5 L, Triglycerides 77, Cholesterol 203 H, LDL Cholesterol 135 H, VLDL Cholesterol 15, HDL Cholesterol 53 Micro: Microbiology 03/08/21 06:53 Mucosa - Nose Respiratory Panel (PCR) - Final Cardiology Labs/Tests 03/08/21 15:05: APTT 170.1 H* 03/09/21 05:00: WBC 5.9, RBC 2.73 L, Hgb 8.4 L, Hct 25.4 L, MCV 93.0, MCH 30.8, MCHC 33.1, Plt Count 229, MPV 11.0, Immature Gran % (Auto) 0.700, Neut % (Auto) 83.9 H, Lymph % (Auto) 7.8 L, [place] % (Auto) 7.6, Eos % (Auto) 0.0, Baso % (Auto) 0.0, Absolute Neuts (auto) 5.0, Nucleated RBC % 0 03/09/21 05:00: Sodium 130 L, Potassium 4.8, Chloride 95 L, Carbon Dioxide 29.0, Anion Gap 6, BUN 20 H, Creatinine 3.37 H, Est GFR (MDRD) Af Amer 24 L, Est GFR (MDRD) Non-Af 20 L, BUN/Creatinine Ratio 5.9 L, Glucose 161 H, Calcium 7.9 L, Total Bilirubin 0.40, Triglycerides 77, Cholesterol 203 H, LDL Cholesterol 135 H , VLDL Cholesterol 15, HDL Cholesterol 53 Rhythm: EKG: ECHO: Stress Test: Cardiac Cath: PCI: CT Surgery: Holter monitor: EPS: PPM: CXR: Chest CT Scan: Radiography Diagnostic Testing: Radiology Impression Echocardiogram 03/08/21 06:09 Interpretation Summary Normal LV size. The estimated ejection fraction is 45 %. The rest of the wall segments are hypokinetic. Moderate segmental systolic dysfunction (see wall motion). Ordering Physician: Saranya Shirley Referring Physician: ALANA FOSTER Performed By: Mabel Tyler, RDCS, RVT Physical Exam Const oriented x3 Orientation / Consciousness: awake Eyes EOMs intact bilaterally Lymph Lymphatic: lymphadenopathy Chest palpation of chest normal Resp clear to auscultation bilaterally Cardio regular rate, regular rhythm and S1 normal heart sound Palpation: normal PMI GI normal to inspection, nondistended, normoactive bowel sounds Extremity no clubbing, cyanosis or edema Assessment & Plan Assessment/Plan (1) Elevated troponin: PLAN: Moderately severe lesion in the left circumflex artery for which he underwent angioplasty and stenting.The patient underwent a cardiac catheterization which demonstrated he appears to be doing better this morning. (2) Alcoholic cardiomyopathy: PLAN: He has a history of a cardiomyopathy thought secondary to alcohol intoxication. His echocardiogram demonstrated moderately reduced left vent ricular systolic function. Alcohol use restraints has been advocated. (3) Paroxysmal atrial fibrillation: PLAN: He is remaining in sinus rhythm at the moment.He will continue medical therapy and follow-up as deemed appropriate. (4) Hyperlipidemia: QUALIFIERS: Hyperlipidemia type: unspecified Qualified Code(s): E78.5 - Hyperlipidemia, unspecified PLAN: He will continue medical management. (5) Benign hypertension: PLAN: His blood pressure will be followed and his medications can be adjusted based upon his blood pressure response. (6) ESRD (end stage renal disease) on dialysis: PLAN: He is going to continue under nephrology for his dialysis therapy.
--- NOTE | 2021-03-09 10:00 | EKG12_ITS ---
Test Reason : AM EKG Blood Pressure : / mmHG Vent. Rate : 084 BPM Atrial Rate : 084 BPM P-R Int : 194 ms QRS Dur : 114 ms QT Int : 508 ms P-R-T Axes : 044 038 183 degrees QTc Int : 600 ms Sinus rhythm with Premature atrial complexes ST & T wave abnormality, consider inferior ischemia ST & T wave abnormality, consider anterolateral ischemia Prolonged QT Abnormal ECG Confirmed by GONZALO CERVANTES, CARA ([id number]), editor news SEAN WEBB ([id number]) on 03/12/2021 9:33:42 AM Referred By: OMAR Confirmed By:CARA SÁNCHEZ MD
[2021-03-09] MEDS: oxyCODONE 5 MG Tablet PO ×2 (10:26→15:41)
[2021-03-09] MEDS: Tamsulosin HCl 0.4 MG Capsule PO (10:26)
[2021-03-09] MEDS: Sertraline 100 MG Tablet PO (10:26)
--- NOTE | 2021-03-09 12:07 | PN.HOSP_ITS ---
Subjective Subjective Patient seen and examined. He complains of more shortness of breath today, and is on BIPAP at time of review. He admits to some wheezing but denies any chest pain, palpitations, dizziness, nausea or vomiting. Review of systems is otherwise negative. Objective Data Objective Data Vital Signs: Vital Signs Temp Pulse Resp BP Pulse Ox 98.1 F 84 18 117/64 95 03/09/21 10:25 03/09/21 10:25 03/09/21 10:25 03/09/21 10:25 03/09/21 10:25 Oxygen Flow Rate (L/min) 4 Oxygen Delivery Method Nasal Cannula Weight: 181 lb 7.047 oz Body Mass Index (BMI) 28.8 Intake & Output: Intake and Output for Last 24 Hours 03/07/21 03/08/21 03/09/21 23:59 23:59 23:59 Intake Total 1736.45 / 1936.45 320 / 320 Output Total 3000 / 3025 Balance -1263.55 / -1088.55 295 / 295 Lab / Micro Data Result Diagrams: 03/09/21 05:00 03/09/21 05:00 Labs: Laboratory Results - last 24 hr 03/08/21 15:05: APTT 170.1 H* 03/09/21 05:00: WBC 5.9, RBC 2.73 L, Hgb 8.4 L, Hct 25.4 L, MCV 93.0, MCH 30.8, MCHC 33.1, RDW Std Deviation 48.3 H, RDW Coeff of Karl 14.4, Plt Count 229, MPV 11.0, Immature Gran % (Auto) 0.700, Neut % (Auto) 83.9 H, Lymph % (Auto) 7.8 L, [place] % (Auto) 7.6, Eos % (Auto) 0.0, Baso % (Auto) 0.0, Absolute Neuts (auto) 5.0, Absolute Lymphs (auto) 0.46 L, Nucleated RBC % 0, Diff Path Review May foll, Hypersegmented Neuts 1+ H 03/09/21 05:00: Sodium 130 L, Potassium 4.8, Chloride 95 L, Carbon Dioxide 29.0, Anion Gap 6, BUN 20 H, Creatinine 3.37 H, Estim Creat Clear Calc 20.98, Est GFR (MDRD) Af Amer 24 L, Est GFR (MDRD) Non-Af 20 L, BUN/Creatinine Ratio 5.9 L, Glucose 161 H, Calcium 7.9 L, Total Bilirubin 0.40, AST 20, ALT 16, Alkaline Phosphatase 126 H, Total Protein 5.1 L, Albumin 1.6 L, Globulin 3.5, Albumin/Globulin Ratio 0.5 L, Triglycerides 77, Cholesterol 203 H, LDL Cholesterol 135 H, VLDL Cholesterol 15, HDL Cholesterol 53 Micro: Microbiology 03/08/21 06:53 Mucosa - Nose Respiratory Panel (PCR) - Final 03/08/21 03:27 Nasal Secretion SARS-CoV-2 Antigen (Rapid) - Final Radiography Diagnostic Testing: Radiology Impression Echocardiogram 03/08/21 06:09 Interpretation Summary Normal LV size. The estimated ejection fraction is 45 %. The rest of the wall segments are hypokinetic. Moderate segmental systolic dysfunction (see wall motion). Ordering Physician: Saranya Shirley Referring Physician: ALANA FOSTER Performed By: Mabel Tyler, RDCS, RVT Physical Exam Const alert, oriented x3 and no apparent distress Exam Limitations: no limitations HEENT head/scalp atraumatic and moist oral mucous membranes Head and Scalp: normocephalic Eyes PERRL, EOMs intact bilaterally and conjunctivae normal Neck no lymphadenopathy Resp Resp Narrative: coarse crackles in mid and lower lung tee bilaterally, with mild wheezing. on BIPAP at time of review Cardio regular rate, regular rhythm, S1 normal heart sound, S2 normal heart sound and no murmurs GI normal to inspection, nondistended, normoactive bowel sounds, soft to palpation, non-tender and non-distended Extremity normal to inspection and full ROM Extremity Narrative: AV fistula with good thrill in LUE Peripheral Pulses: Yes pulses 2+ throughout Skin no rashes or lesions noted Neuro oriented x3, CN's II-XII intact bilaterally and moves all extremities Sensorium / Orientation: awake and alert Psych affect normal Assessment & Plan Assessment/Plan (1) Acute exacerbation of chronic obstructive pulmonary disease: (2) End-stage renal disease on hemodialysis: (3) Non-ST elevation myocardial infarction, initial hospitalization: PLAN: #Nonstemi * had cardiac cath today which showed significant left circumflex artery lesion and totally occluded RCA with right to left collaterals; s/p PCI * on aspirin and plavix, high intensity statin and metoprolol * cardiology on board * * #acute hypoxic respiratory failure due to COPD exacerbation * on breathing treatment with bronchodilators * on IV solumedrol * titrate oxygen to maintain sats > 90% * was on BIPAP this morning; he did appear a bit more short of breath. I do think it will help if he had an extra session of dialysis today for further fluid removal. Discussed with nephrology #ESRD: * on HD TTS. Nephrology on board. * had dialysis yesterday with removal of 3L of fluid. * WIll benefit from another session of dialysis today. #Hypertension; on metoprolol. #History of afib: on cardizem and metoprolol. chronic hyponatremia: sodium is 130 today. This is chronic and could be due to chronic alcohol abuse. #Anxiety and depression; on sertraline #History of alcohol abuse * on alcohol withdrawal protocol. * PO mutivite, folic acid and thiamine. * DVT prophylaxis: lovenox, renal dose. Charges/Coding Visit Charges Inpatient E&M: 26344 Subs Hosp L3
[2021-03-09 12:57] LABS: Pathologist Review Reviewed
--- NOTE | 2021-03-09 16:07 | DIALYSIS ---
IUF x2 hours completed at 1520, tolerated well, UF 2800mL, accessed via LOBITO AVF, worked well, needles pulled post treatment and stasis achieved without issue, regular dialysis treatment planned for Friday
[2021-03-09] MEDS: 0.9% Saline Lock 10 ML Syringe IV (20:05)
[2021-03-09] MEDS: hydrOXYzine PAM 25 MG Capsule 50 MG PO (20:05)
[2021-03-09] MEDS: Morphine 2 MG/ML Syringe IV (20:05)
[2021-03-09] MEDS: Atorvastatin Calcium 10 MG Tablet PO (20:06)
--- NOTE | 2021-03-09 21:07 | NURSING ---
2000- pt insistent that medications be given at this time so he can go to sleep.
--- NOTE | 2021-03-09 21:08 | NURSING ---
2000- pt refusing BiPAP for the night
[2021-03-10] VITALS (16 sets, daily range): BP systolic 95–113; BP diastolic 48–72; PULSE 71–84; RESP 14–20; TEMP 36.5–36.8; O2SAT 92–100
[2021-03-10] MEDS: oxyCODONE 5 MG Tablet PO ×3 (04:58→21:55)
[2021-03-10] MEDS: Ipratropium/Albuterol Sulfate 3 ML AMPUL.NEB INHALATION ×5 (04:58→19:24)
[2021-03-10] MEDS: 0.9% Saline Lock 10 ML Syringe IV (04:59)
--- NOTE | 2021-03-10 09:30 | PCM.PN.CARD ---
Subjective Subjective Patient seen and evaluated. Appears to be doing much better this morning. Objective Data Vital Signs: Vital Signs Temp Pulse Resp BP Pulse Ox 97.8 F 75 16 105/65 100 03/10/21 05:31 03/10/21 05:31 03/10/21 05:31 03/10/21 05:31 03/10/21 05:31 Oxygen Flow Rate (L/min) 4 Oxygen Delivery Method Nasal Cannula Weight: 201 lb 8.04 oz Body Mass Index (BMI) 28.8 Intake & Output: Intake and Output for Last 24 Hours 03/08/21 03/09/21 03/10/21 23:59 23:59 23:59 Intake Total 1736.45 / 1936.45 1590 / 1590 900 / 900 Output Total 3000 / 3025 2825 / 2825 Balance -1263.55 / -1088.55 -1235 / -1235 900 / 900 Lab / Micro Data Result Diagrams: 03/09/21 05:00 03/09/21 05:00 Labs: Laboratory Results - last 24 hr 03/09/21 05:00: Diff Path Review Reviewed Cardiology Labs/Tests Rhythm: EKG: ECHO: Stress Test: Cardiac Cath: PCI: CT Surgery: Holter monitor: EPS: PPM: CXR: Chest CT Scan: Physical Exam Const alert and oriented x3 Orientation / Consciousness: awake HEENT normocephalic, head/scalp atraumatic and hearing grossly normal bilaterally Eyes PERRL, EOMs intact bilaterally and conjunctivae normal Neck full ROM, supple and no JVD Lymph Lymphatic: lymphadenopathy Chest palpation of chest normal Resp clear to auscultation bilaterally Auscultation: rhonchi throughout Cardio regular rate, regular rhythm, S1 normal heart sound and S2 normal heart sound Palpation: normal PMI GI normal to inspection, nondistended, normoactive bowel sounds Extremity no clubbing, cyanosis or edema Extremity Narrative: Left upper extremity/arm: AV fistula Neuro oriented x3 and moves all extremities Psych mental status grossly normal Assessment & Plan Assessment/Plan (1) Elevated troponin: PLAN: Moderately severe lesion in the left circumflex artery for which he underwent angioplasty and stenting.The patient underwent a cardiac catheterization which demonstrated he appears to be doing better this morning. The plan will be to continue the current medications with no changes (2) Alcoholic cardiomyopathy: PLAN: He has a history of a cardiomyopathy thought secondary to alcohol intoxication. His echocardiogram demonstrated moderately reduced left ventricular systolic function. Alcohol use restraints has been advocated. (3) Paroxysmal atrial fibrillation: PLAN: He is remaining in sinus rhythm at the moment.He will continue medical therapy and follow-up as deemed appropriate. (4) Hyperlipidemia: QUALIFIERS: Hyperlipidemia type: unspecified Qualified Code(s): E78.5 - Hyperlipidemia, unspecified PLAN: He will continue medical management. (5) Benign hypertension: PLAN: His blood pressure will be followed and his medications can be adjusted based upon his blood pressure response. (6) ESRD (end stage renal disease) on dialysis: PLAN: He is going to continue under nephrology for his dialysis therapy. He tells me that he would want to stay here another day before going to his new facility.
--- NOTE | 2021-03-10 10:00 | EKG12_ITS ---
Test Reason : Blood Pressure : / mmHG Vent. Rate : 074 BPM Atrial Rate : 074 BPM P-R Int : 188 ms QRS Dur : 108 ms QT Int : 522 ms P-R-T Axes : 026 021 174 degrees QTc Int : 579 ms Normal sinus rhythm ST & Marked T wave abnormality, consider anterolateral ischemia Prolonged QT Abnormal ECG When compared with ECG of 10-MAR-2021 04:59, MANUAL COMPARISON REQUIRED, DATA IS UNCONFIRMED Confirmed by GONZALO CERVANTES, CARA ([id number]), fork truck driver SEAN WEBB ([id number]) on 03/13/2021 9:41:20 AM Referred By: OMAR Confirmed By:CARA SÁNCHEZ MD
[2021-03-10 10:17] LABS: Absolute Lymphocyte Count 0.44 X10^3/uL (0.83-4.51); Absolute Neutrophil Count 8.1 X10^3/uL (2.0-7.7); Basophil# 0.01 X10^3/uL; Basophil% 0.1 % (0-1); Hematocrit 29.4 % (40-54); Hemoglobin 9.1 g/dL (13.0-16.5); Lymphocyte # 0.44 X10^3/ul (0.83-4.51); Lymphocyte % 4.9 % (19-41); Mean Corpuscular Hgb 30.4 pg (27.0-32.0); Mean Corpuscular Volume 98.3 fL (80-94); Mean Platelet Vol. 10.2 fl (6.2-12.0); Monocyte# 0.43 X10^3/uL; Monocyte% 4.8 % (0-10); NRBC Flagged by Analyzer 0 % (0-5); Neutrophil # 8.07 X10^3/uL (2.7-7.7); Neutrophil % 89.6 % (47-70); POSITIVE DIFFERENTIAL YES; Platelet Count 264 K/mm3 (150-450); RBC Distribution Width CV 14.8 % (11.6-14.6); RBC Distribution Width SD 53.3 fl (35.1-43.9); Red Blood Count 2.99 M/mm3 (4.6-6.2)
[2021-03-10] MEDS: dilTIAZem CD 240 MG Capsule PO (10:21)
[2021-03-10] MEDS: Loratadine 10 MG Tablet PO (10:21)
[2021-03-10] MEDS: Sertraline 100 MG Tablet PO (10:21)
[2021-03-10] MEDS: Furosemide 20 MG Tablet PO (10:21)
[2021-03-10] MEDS: Clopidogrel Bisulfate 75 MG Tablet PO (10:22)
[2021-03-10] MEDS: Aspirin E.C. 81 MG Tablet PO (10:22)
[2021-03-10] MEDS: SEVELAMER CARBONATE 800 MG TABLET PO ×2 (10:22→17:40)
[2021-03-10] MEDS: Thiamine Hydrochloride 100 MG Tablet PO ×2 (10:22→17:42)
[2021-03-10] MEDS: Tamsulosin HCl 0.4 MG Capsule PO (10:23)
[2021-03-10] MEDS: Multivitamins,Ther W-Minerals Tablet 1 TABLET PO (10:23)
[2021-03-10] MEDS: Folic Acid 1 MG Tablet PO (10:23)
[2021-03-10] MEDS: Gabapentin 100 MG Capsule PO ×2 (10:24→21:47)
[2021-03-10 10:27] LABS: Differential Indicated SCAN CRITERIA MET
[2021-03-10] MEDS: Docusate Sodium 100 MG Capsule PO ×2 (10:31→21:47)
[2021-03-10 10:36] LABS: Anion Gap 9 (5-15); BUN 39 mg/dL (7-18); BUN/Creat Ratio 8.4 RATIO (10-20); Calcium,Total 8.6 mg/dL (8.5-10.1); Chloride 91 mmol/L (98-107); Creatinine, Serum 4.64 mg/dL (0.70-1.30); EST Glomerular Filtration Rate 14 mL/min (>60); Est Glom Filt Rate - Afr Amer 17 mL/min (>60); Estimated Creatinine Clearance 15.23 ml/min; Glucose 168 mg/dL (74-106); Potassium 4.7 mmol/L (3.5-5.1); Sodium Level 128 mmol/L (136-145)
[2021-03-10 10:59] LABS: Hypochromasia 2+; Platelet Estimate ADEQUATE (ADEQ)
--- NOTE | 2021-03-10 15:51 | DIALYSIS ---
Hemodialysis x 3hrs 15min completed. -2000ml UF. Stable run. Hemostasis obtained. gauze/tape applied. Report was given to Alvarez REAGAN. See HD Flowsheet for tx details.
--- NOTE | 2021-03-10 16:26 | PN.HOSP_ITS ---
Subjective Subjective Patient seen and examined today. He had no active complaints today. He felt his shortness of breath has improved. He remains on 4L of oxygen after being taken off bipap yesterday. Review of systems is otherwise negative. He wants to stay one more day in hospital at the very least. Objective Data Objective Data Vital Signs: Vital Signs Temp Pulse Resp BP Pulse Ox 97.8 F 76 14 113/69 100 03/10/21 15:40 03/10/21 15:40 03/10/21 15:40 03/10/21 15:40 03/10/21 15:40 Oxygen Flow Rate (L/min) 4 Oxygen Delivery Method Nasal Cannula Weight: 201 lb 8.04 oz Body Mass Index (BMI) 28.8 Intake & Output: Intake and Output for Last 24 Hours 03/08/21 03/09/21 03/10/21 23:59 23:59 23:59 Intake Total 1736.45 / 1936.45 1590 / 1590 900 / 900 Output Total 3000 / 3025 2825 / 2825 1999 / 1999 Balance -1263.55 / -1088.55 -1235 / -1235 -1100 / -1100 Lab / Micro Data Result Diagrams: 03/10/21 10:08 03/10/21 10:08 Labs: Laboratory Results - last 24 hr 03/10/21 10:08: WBC 9.0, RBC 2.99 L, Hgb 9.1 L, Hct 29.4 L, MCV 98.3 H D, MCH 30.4, MCHC 31.0 L D, RDW Std Deviation 53.3 H, RDW Coeff of Karl 14.8 H, Plt Count 264, MPV 10.2, Immature Gran % (Auto) 0.600, Neut % (Auto) 89.6 H, Lymph % (Auto) 4.9 L, [place] % (Auto) 4.8, Eos % (Auto) 0.0, Baso % (Auto) 0.1, Absolute Neuts (auto) 8.1 H, Absolute Lymphs (auto) 0.44 L, Nucleated RBC % 0, Platelet Estimate ADEQUATE, Hypochromasia 2+ 03/10/21 10:08: Sodium 128 L, Potassium 4.7, Chloride 91 L, Carbon Dioxide 28.0, Anion Gap 9, BUN 39 H, Creatinine 4.64 H, Estim Creat Clear Calc 15.23, Est GFR (MDRD) Af Amer 17 L, Est GFR (MDRD) Non-Af 14 L, BUN/Creatinine Ratio 8.4 L, Glucose 168 H, Calcium 8.6 Micro: Microbiology 03/09/21 18:30 Sputum, Expectorated/Coughed Respiratory Culture - Preliminary Gram negative quirino 03/08/21 06:53 Mucosa - Nose Respiratory Panel (PCR) - Final 03/08/21 03:27 Nasal Secretion SARS-CoV-2 Antigen (Rapid) - Final Physical Exam Const alert, oriented x3 and no apparent distress Exam Limitations: no limitations HEENT head/scalp atraumatic and moist oral mucous membranes Head and Scalp: normocephalic Eyes PERRL, EOMs intact bilaterally and conjunctivae normal Neck no lymphadenopathy Resp Resp Narrative: coarse crackles in mid and lower lung tee bilaterally, with mild wheezing. on 4L of oxygen by nasal cannula Cardio regular rate, regular rhythm, S1 normal heart sound, S2 normal heart sound and no murmurs GI normal to inspection, nondistended, normoactive bowel sounds, soft to palpation, non-tender and non-distended Extremity normal to inspection and full ROM Extremity Narrative: AV fistula with good thrill in LUE Skin no rashes or lesions noted Neuro oriented x3, CN's II-XII intact bilaterally and moves all extremities Sensorium / Orientation: awake and alert Psych affect normal Assessment & Plan Assessment/Plan (1) Acute exacerbation of chronic obstructive pulmonary disease: (2) End-stage renal disease on hemodialysis: (3) Non-ST elevation myocardial infarction, initial hospitalization: PLAN: #Nonstemi * s/p cardiac cath which showed significant left circumflex artery lesion and t otally occluded RCA with right to left collaterals; s/p PCI * on aspirin and plavix, high intensity statin and metoprolol * cardiology on board * * #acute hypoxic respiratory failure due to COPD exacerbation * on breathing treatment with bronchodilators * on IV solumedrol * titrate oxygen to maintain sats > 90% * weaned off BIPAP. Now on 4L of oxygen by nasal canula #ESRD: * on HD TTS. Nephrology on board. * had dialysis yesterday as well. For dialysis today #Hypertension; on metoprolol. #History of afib: on cardizem and metoprolol. chronic hyponatremia: sodium is 128 today. This is chronic and could be due to chronic alcohol abuse. Will monitor #Anxiety and depression; on sertraline #History of alcohol abuse * on alcohol withdrawal protocol. * PO mutivite, folic acid and thiamine. * DVT prophylaxis: lovenox, renal dose. Charges/Coding Visit Charges Inpatient E&M: 50994 Subs Hosp L2
[2021-03-10] MEDS: hydrOXYzine PAM 25 MG Capsule 50 MG PO (21:47)
[2021-03-10] MEDS: Metoprolol Tartrate 50 MG Tablet PO (21:47)
[2021-03-10] MEDS: Atorvastatin Calcium 10 MG Tablet PO (21:47)
[2021-03-11] VITALS (13 sets, daily range): BP systolic 108–132; BP diastolic 65–79; PULSE 73–96; RESP 16–24; TEMP 36.6–37.3; O2SAT 94–100
[2021-03-11] MEDS: Ipratropium/Albuterol Sulfate 3 ML AMPUL.NEB INHALATION ×4 (04:03→19:22)
[2021-03-11] MEDS: 0.9% Saline Lock 10 ML Syringe IV ×4 (05:03→23:59)
[2021-03-11] MEDS: oxyCODONE 5 MG Tablet PO (05:07)
[2021-03-11] MEDS: Metoprolol Tartrate 50 MG Tablet PO (08:35)
[2021-03-11] MEDS: Docusate Sodium 100 MG Capsule PO (08:35)
[2021-03-11] MEDS: dilTIAZem CD 180 MG Capsule PO (08:35)
[2021-03-11] MEDS: Loratadine 10 MG Tablet PO (08:36)
[2021-03-11] MEDS: Gabapentin 100 MG Capsule PO (08:36)
[2021-03-11] MEDS: SEVELAMER CARBONATE 800 MG TABLET PO ×2 (08:36→12:31)
[2021-03-11] MEDS: Multivitamins,Ther W-Minerals Tablet 1 TABLET PO (08:36)
[2021-03-11] MEDS: Tamsulosin HCl 0.4 MG Capsule PO (08:36)
[2021-03-11] MEDS: Aspirin E.C. 81 MG Tablet PO (08:37)
[2021-03-11] MEDS: Clopidogrel Bisulfate 75 MG Tablet PO (08:37)
[2021-03-11] MEDS: Sertraline 100 MG Tablet PO (08:38)
[2021-03-11] MEDS: Enoxaparin 30 MG/0.3 ML Syringe SC (08:38)
--- NOTE | 2021-03-11 09:06 | PCM.PN.CARD ---
Subjective Subjective Patient seen and evaluated. Appears to be doing quite well. Objective Data Vital Signs: Vital Signs Temp Pulse Resp BP Pulse Ox 98.1 F 79 16 113/65 100 03/11/21 08:30 03/11/21 08:35 03/11/21 08:30 03/11/21 08:30 03/11/21 08:30 Oxygen Flow Rate (L/min) 4 Oxygen Delivery Method Nasal Cannula Weight: 179 lb 7.3 oz Body Mass Index (BMI) 28.8 Intake & Output: Intake and Output for Last 24 Hours 03/09/21 03/10/21 03/11/21 23:59 23:59 23:59 Intake Total 1590 / 1590 1260 / 1260 240 / 240 Output Total 2825 / 2825 1999 / 1999 Balance -1235 / -1235 -740 / -740 240 / 240 Lab / Micro Data Result Diagrams: 03/10/21 10:08 03/10/21 10:08 Labs: Laboratory Results - last 24 hr 03/10/21 10:08: WBC 9.0, RBC 2.99 L, Hgb 9.1 L, Hct 29.4 L, MCV 98.3 H D, MCH 30.4, MCHC 31.0 L D, RDW Std Deviation 53.3 H, RDW Coeff of Karl 14.8 H, Plt Count 264, MPV 10.2, Immature Gran % (Auto) 0.600, Neut % (Auto) 89.6 H, Lymph % (Auto) 4.9 L, [place] % (Auto) 4.8, Eos % (Auto) 0.0, Baso % (Auto) 0.1, Absolute Neuts (auto) 8.1 H, Absolute Lymphs (auto) 0.44 L, Nucleated RBC % 0, Platelet Estimate ADEQUATE, Hypochromasia 2+ 03/10/21 10:08: Sodium 128 L, Potassium 4.7, Chloride 91 L, Carbon Dioxide 28.0, Anion Gap 9, BUN 39 H, Creatinine 4.64 H, Estim Creat Clear Calc 15.23, Est GFR (MDRD) Af Amer 17 L, Est GFR (MDRD) Non-Af 14 L, BUN/Creatinine Ratio 8.4 L, Glucose 168 H, Calcium 8.6 Micro: Microbiology 03/09/21 18:30 Sputum, Expectorated/Coughed Gram Stain - Final 03/09/21 18:30 Sputum, Expectorated/Coughed Respiratory Culture - Preliminary Stenotrophomonas maltophilia Cardiology Labs/Tests 03/10/21 10:08: WBC 9.0, RBC 2.99 L, Hgb 9.1 L, Hct 29.4 L, MCV 98.3 H D, MCH 30.4, MCHC 31.0 L D, Plt Count 264, MPV 10.2, Immature Gran % (Auto) 0.600, Neut % (Auto) 89.6 H, Lymph % (Auto) 4.9 L, [place] % (Auto) 4.8, Eos % (Auto) 0.0, Baso % (Auto) 0.1, Absolute Neuts (auto) 8.1 H, Nucleated RBC % 0 03/10/21 10:08: Sodium 128 L, Potassium 4.7, Chloride 91 L, Carbon Dioxide 28.0, Anion Gap 9, BUN 39 H, Creatinine 4.64 H, Est GFR (MDRD) Af Amer 17 L, Est GFR (MDRD) Non-Af 14 L, BUN/Creatinine Ratio 8.4 L, Glucose 168 H, Calcium 8.6 Rhythm: EKG: ECHO: Stress Test: Cardiac Cath: PCI: CT Surgery: Holter monitor: EPS: PPM: CXR: Chest CT Scan: Physical Exam Const alert and oriented x3 Orientation / Consciousness: awake HEENT normocephalic, head/scalp atraumatic and hearing grossly normal bilaterally Eyes PERRL, EOMs intact bilaterally and conjunctivae normal Neck full ROM, supple and no JVD Lymph Lymphatic: lymphadenopathy Chest palpation of chest normal Resp clear to auscultation bilaterally Auscultation: rhonchi throughout Cardio regular rate, regular rhythm, S1 normal heart sound and S2 normal heart sound Palpation: normal PMI GI normal to inspection, nondistended, normoactive bowel sounds Extremity no clubbing, cyanosis or edema Extremity Narrative: Left upper extremity/arm: AV fistula Neuro oriented x3 and moves all extremities Psych mental status grossly normal Assessment & Plan Assessment/Plan (1) Elevated troponin: PLAN: Moderately severe lesion in the left circumflex artery for which he underwent angioplasty and stenting.The patient underwent a cardiac catheterization which demonstrated moderately severe lesion in the left circumflex artery. He appears to be doing better this morning. The plan will be to continue the current medications with no changes (2) Alcoholic cardiomyopathy: PLAN: He has a history of a cardiomyopathy thought secondary to alcohol intoxication. His echocardiogram demonstrated moderately reduced left ventricular systolic function. Alcohol use restraints has been advocated. (3) Paroxysmal atrial fibrillation: PLAN: He is remaining in sinus rhythm at the moment.He will continue medical therapy and follow-up as deemed appropriate. (4) Hyperlipidemia: QUALIFIERS: Hyperlipidemia type: unspecified Qualified Code(s): E78.5 - Hyperlipidemia, unspecified PLAN: He will continue medical management. (5) Benign hypertension: PLAN: His blood pressure will be followed and his medications can be adjusted based upon his blood pressure response. (6) ESRD (end stage renal disease) on dialysis: PLAN: He is going to continue under nephrology for his dialysis therapy.
--- NOTE | 2021-03-11 10:00 | EKG12_ITS ---
Test Reason : AM EKG Blood Pressure : / mmHG Vent. Rate : 079 BPM Atrial Rate : 079 BPM P-R Int : 200 ms QRS Dur : 114 ms QT Int : 496 ms P-R-T Axes : 044 042 185 degrees QTc Int : 568 ms Normal sinus rhythm ST & Marked T wave abnormality, consider anterolateral ischemia Prolonged QT Abnormal ECG When compared with ECG of 09-MAR-2021 05:08, MANUAL COMPARISON REQUIRED, DATA IS UNCONFIRMED Confirmed by GONZALO CERVANTES, CARA ([id number]), non linear editor SEAN WEBB ([id number]) on 03/13/2021 9:41:44 AM Referred By: OMAR Confirmed By:CARA SÁNCHEZ MD
--- NOTE | 2021-03-11 13:07 | DS.PCM_ITS ---
Providers Date of Admission: 03/08/21 Primary Care Physician: Dr. Doron Recio MD Consultations 03/08/21 06:09 Consult: Cardiology Routine Consulting Provider: Raheel Hinojosa Reason for Consult: CP, EKG Changes, Elevated Trop EMERGENT Consult: No Notified: Yes Date Notified: 03/08/21 Time Notified: 05:39 Method of Notification: cortext Consult: Nephrology Routine Consulting Provider: Ely Perez Reason for Consult: ESRD on HD, admit w/ COPD exac, CP w/ EKG changes EMERGENT Consult: No Notified: Yes Date Notified: 03/08/21 Time Notified: 04:44 Method of Notification: Text Reason For Visit: COPD EXACERBATION, EKG CHANGES/CHEST PAIN Diagnosis Discharge Diagnosis (1) Elevated troponin: Status: Acute Code(s): R77.8 - Other specified abnormalities of plasma proteins (2) Alcoholic cardiomyopathy: Status: Chronic Code(s): I42.6 - Alcoholic cardiomyopathy (3) Paroxysmal atrial fibrillation: Status: Chronic Code(s): I48.0 - Paroxysmal atrial fibrillation (4) Hyperlipidemia: Status: Chronic Code(s): E78.5 - Hyperlipidemia, unspecified Qualifiers: Hyperlipidemia type: unspecified Qualified Code(s): E78.5 - Hyperlipidemia, unspecified (5) Benign hypertension: Status: Chronic Code(s): I10 - Essential (primary) hypertension (6) ESRD (end stage renal disease) on dialysis: Status: Chronic Code(s): N18.6 - End stage renal disease; Z99.2 - Dependence on renal dialysis Medications at Discharge Home Medications albuterol sulfate 2 mg/5 mL oral syrup 2 mg PO TID 12/15/19 Acapella #1 ea 04/05/20 electric wheel chair #1 ea 07/03/20 sertraline 100 mg PO DAILY 03/08/21 Spiriva Respimat 2 puff INHALATION QDAY #1 ea 03/11/21 acetaminophen 650 mg PO Q8H PRN PRN #30 tab 03/11/21 albuterol sulfate 2 puff INHALATION Q4H PRN PRN #18 g 03/11/21 aspirin 81 mg PO DAILY #30 tab 03/11/21 atorvastatin 40 mg PO DAILY #30 tab 03/11/21 cetirizine 10 mg PO DAILY #30 tab 03/11/21 clopidogrel [Plavix] 75 mg PO DAILY #30 tab 03/11/21 diltiazem HCl 180 mg PO DAILY #30 cap 03/11/21 fluticasone propion-salmeterol 1 inh INHALATION BID #60 ea 03/11/21 furosemide 20 mg PO DAILY #30 tab 03/11/21 gabapentin 100 mg PO BID #60 cap 03/11/21 hydroxyzine HCl 50 mg PO QHS #30 tab 03/11/21 loratadine 10 mg PO DAILY #30 cap 03/11/21 metoprolol tartrate 50 mg PO BID #60 tab 03/11/21 nitroglycerin 0.4 mg SUBLINGUAL Q5-15M PRN #30 tab 03/11/21 ondansetron 4 mg PO Q8H PRN PRN #30 tab 03/11/21 sevelamer carbonate 800 mg PO TIDCM #90 tab 03/11/21 tamsulosin 0.4 mg PO DAILY #30 cap 03/11/21 Hospital Course Operations None Procedures 2-D Echocardiogram and Cardiac catheterization Summary of Care Provided Minutes Spent on Discharge: 40 Hospital Course: Patient is a 65 y/o male with a PMH as outlined who was admitted via the ED on 03/08/2021 with a complaint of shortness of breath which was progressively worsening, with nonproductive cough with no fever or chills and chest discomfort. CXR showed chronic interstitial lung disease, with chronic pleural-parenchymal changes in the left lung base with no other acute cardiopulmonary findings. EKG showed sinus rhythm with inverted T waves in the anterior leads which were new from August 2020. He was admitted and managed for acute on chronic COPD exacerbation and nonstemi. He was also noted to have hyponatremia on admission, which was acute on chronic. Nephrology was consulted for dialysis. He was placed on aspirin, statin, plavix and metoprolol. He was also placed on breathing treatments with bronchodilators, and IV solumedrol. He was started on heparin drip. He had cardiac cath which showed significant left circumflex artery lesion s/p PCi with drug eluting stent; he also had a totally occluded RCA with right to let shunts. 2D echo shwoed EF of 45%, with moderte segmental systolic dysfunction, with the rest of the wall segments being hypokinetic. Patient's hospital course was complicated by worsening shortness of breath for which he briefly required BIPAP. He was given an extra session of dialysis which helped with his shortness of breath. He felt stable and was discharged home on 03/11/2021. 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 Patient seen and examined prior to discharge. He had no complaints and felt much better. His breathing had really improved, and he was on his baseline 3-4L of oxygen. Labs and vitals reviewed. Home meds reviewed and reconciled. Physical Exam Const alert, oriented x3 and no apparent distress General Appearance: cooperative and comfortable Exam Limitations: no limitations HEENT normocephalic, head/scalp atraumatic and moist oral mucous membranes Eyes PERRL, EOMs intact bilaterally and conjunctivae normal Neck no lymphadenopathy Resp Resp Narrative: coarse crackles in mid and lower lung tee bilaterally. on 4L of oxygen by nasal cannula Cardio regular rate, regular rhythm, S1 normal heart sound, S2 normal heart sound and no murmurs GI normal to inspection, nondistended, normoactive bowel sounds, soft to palpation, non-tender and non-distended Extremity normal to inspection and full ROM Extremity Narrative: AV fistula with good thrill in LUE Skin no rashes or lesions noted Neuro oriented x3, CN's II-XII intact bilaterally and moves all extremities Sensorium / Orientation: awake and alert Psych affect normal Weight / BMI Weight Weight: 179 lb 7.3 oz Body Mass Index (BMI) 28.8 ABG / Lab / Microbiology Data Result Diagrams: 03/10/21 10:08 03/10/21 10:08 Microbiology: Microbiology 03/09/21 18:30 Sputum, Expectorated/Coughed Gram Stain - Final 03/09/21 18:30 Sputum, Expectorated/Coughed Respiratory Culture - Final Stenotrophomonas maltophilia 03/08/21 06:53 Mucosa - Nose Respiratory Panel (PCR) - Final 03/08/21 03:27 Nasal Secretion SARS-CoV-2 Antigen (Rapid) - Final D/C Instructions Discharge Diet: Low fat / Low cholesterol Discharge Activity: Return to Normal Activity Weight Bearing Status: Weight bearing as tolerated Call your doctor if you observe: Fever of 101 or Higher, Shortness of breath, Swelling in the ankles and Increased palpitations (irregular heartbeat) Meaningful Use Info Meaningful Use Diagnoses (Choose all that apply): AMI AMI/Post PCI/Angioplasty Aspirin given w/in 24hrs of arrival?: Yes ASA at discharge?: Yes Antiplatelet Therapy at Discharge:: Yes Statins at discharge?: Yes Jeff/ARB at discharge?: No Reason Jeff/ARB not ordered:: Worsening renal disease Beta Sb at discharge?: Yes Done w/ Acute MA measure.: Yes Documented LVEF (%): 45 Discharge Plan Admission Admit Date/Time: 03/08/21 04:45 Primary Reason for Your Visit: COPD exacerbation, nonstemi Attending Provider: Ilda Gonzalez Primary Care Provider: Doron Recio Consulting Providers: Raheel Hinojosa ; Ely Perez Instructions Patient Instructions: COPD: Chronic Coughing, COPD Meds, Heart Attack Meds, Heart Attack: Leaving the Hospital Discharge Orders/Prescriptions Prescriptions: New diltiazem HCl 180 mg Capsule,Extended Release 24hr 180 mg PO DAILY Qty: 30 RF: 1 sevelamer carbonate 800 mg Tablet 800 mg PO TIDCM Qty: 90 RF: 1 metoprolol tartrate 50 mg Tablet 50 mg PO BID Qty: 60 RF: 1 atorvastatin 40 mg tablet 40 mg PO DAILY Qty: 30 RF: 1 aspirin 81 mg tablet,delayed release (DR/EC) 81 mg PO DAILY Qty: 30 RF: 1 clopidogrel [Plavix] 75 mg tablet 75 mg PO DAILY Qty: 30 RF: 1 Continued albuterol sulfate 2 mg/5 mL syrup 2 mg PO TID RF: 0 sertraline 100 mg tablet 100 mg PO DAILY RF: 0 fluticasone propion-salmeterol 250-50 mcg/dose blister with device 1 inh INHALATION BID Qty: 60 RF: 1 cetirizine 10 mg tablet 10 mg PO DAILY Qty: 30 RF: 1 hydroxyzine HCl 50 mg tablet 50 mg PO QHS Qty: 30 RF: 1 acetaminophen 650 MG tablet extended release 650 mg PO Q8H PRN PRN (Reason: Pain Score 1-10/10) Qty: 30 RF: 1 tamsulosin 0.4 MG capsule 0.4 mg PO DAILY Qty: 30 RF: 1 nitroglycerin 0.4 mg tablet, sublingual 0.4 mg SUBLINGUAL Q5-15M PRN (Reason: chest pain) Qty: 30 RF: 1 gabapentin 300 mg capsule 100 mg PO BID Qty: 60 RF: 1 furosemide 20 mg tablet 20 mg PO DAILY Qty: 30 RF: 1 albuterol sulfate 90 mcg/actuation HFA aerosol inhaler 2 puff inhalation Q4H PRN PRN (Reason: Sob &/Or Wheezing) Qty: 18 RF: 1 ondansetron 4 MG tablet 4 mg PO Q8H PRN PRN (Reason: Nausea) Qty: 30 RF: 1 loratadine 10 MG capsule 10 mg PO DAILY Qty: 30 RF: 1 Spiriva Respimat 2.5 mcg/actuation mist 2 puff INHALATION QDAY Qty: 1 RF: 1 Discontinued sevelamer carbonate 800 mg tablet 1,600 mg PO TID RF: 0 lovastatin 20 MG tablet 40 mg PO QHS RF: 0 Hold Instructions: Myalgias in arms metoprolol tartrate 25 mg tablet 50 mg PO BID 90 Days Qty: 360 RF: 3 diltiazem HCl 240 mg capsule,extended release 24hr 240 mg PO DAILY Qty: 30 RF: 11 No Action (DME) Acapella Qty: 1 RF: 0 (DME) electric wheel chair See Rx Instructions .Route .MEDSUPPLY Qty: 1 RF: 0 Referrals / Follow Up: Ely Perez DO [STAFF PHYSICIAN] - In 1 Week Iban Valdez MD [STAFF PHYSICIAN] - Within 2 Weeks Doron Recio MD [Primary Care Provider] - Within 2 Weeks Disposition Disposition (needs filled in before D/C Order can be placed): Home, Self Care Charges/Coding Visit Charges Inpatient E&M: 09146 Disch Hosp
[2021-03-11] MEDS: Senna/Docusate Sodium 1 Tablet 2 TABLET PO (14:14)
[2021-03-11] MEDS: Ondansetron 4 MG/2 ML Vial IV (16:09)
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
[2021-03-11] MEDS: proCHLORPERazine 10 MG/2 ML Vial 5 MG IV ×2 (17:27→22:19)
--- NOTE | 2021-03-11 20:09 | PCM.HOSP.N ---
Hospitalist Note Patient with small BM earlier in the day and since then abdominal discomfort, bouts of ongoing nausea and emesis. Will obtain KUB, give x 1 phenergan IM until zofran/comp due.
[2021-03-11] MEDS: proMETHazine 25 MG/ML Syringe 6.25 MG IM (20:35)
--- NOTE | 2021-03-11 20:47 | EKG12_ITS ---
Test Reason : ARRYTHMIA Blood Pressure : / mmHG Vent. Rate : 099 BPM Atrial Rate : 099 BPM P-R Int : 184 ms QRS Dur : 106 ms QT Int : 422 ms P-R-T Axes : 062 055 191 degrees QTc Int : 541 ms Normal sinus rhythm with sinus arrhythmia Left ventricular hypertrophy with repolarization abnormality Prolonged QT Abnormal ECG When compared with ECG of 11-MAR-2021 06:52, MANUAL COMPARISON REQUIRED, DATA IS UNCONFIRMED Confirmed by GONZALO CERVANTES, CARA ([id number]), food expeditor SEAN WEBB ([id number]) on 03/13/2021 9:40:47 AM Referred By: OMAR Confirmed By:CARA SÁNCHEZ MD
--- NOTE | 2021-03-11 21:00 | RAD_ITS ---
We are attempting to reach an attending provider to discuss findings. An addendum with communication details will be sent when the communication is complete. INDICATION: Abdominal pain, N/V EXAMINATION/TECHNIQUE: X-RAY - supine AP view abdomen COMPARISON: None FINDINGS: BOWEL GAS PATTERN: Multiple abnormally distended small bowel loops without visible transition point. Minimal air in the colon. FREE AIR: Poorly assessed on a single supine view. No free air suggested. ORGANOMEGALY: Not seen. CALCIFICATIONS: No abnormal calcifications observed. LOWER CHEST: No acute pathology. BONES AND SOFT TISSUES: No acute pathology. RAD/Abdomen Single View (Portable) IMPRESSION: Diffuse abnormally distended air-filled bowel loops suggesting distal small bowel obstruction or possible ileus. Consider upright imaging to assess for air-fluid levels or CT for further evaluation. Electronically Signed: Lalit Kate DO at 23:17 EDT Tel , Service support ,
--- NOTE | 2021-03-11 21:34 | CPS ---
Pt refused BIPAP, says he will never wear it so RT pulled machine d/t pandemic and need for equipment.
[2021-03-11] MEDS: Mag Hydrox/Al Hydrox/Simeth 30 ML UDC PO (21:48)
[2021-03-11] MEDS: 0.9% Normal Saline 1,000 ML 75 ML IV (23:47)
[2021-03-11] MEDS: LORazepam 2 MG/ML Syringe 1 MG IV (23:59)
[2021-03-12] VITALS (46 sets, daily range): BP systolic 60–191; BP diastolic 38–113; PULSE 71–145; RESP 18–40; TEMP 35.8–37.4; O2SAT 92–100
--- NOTE | 2021-03-12 | RAD_ITS ---
STUDY: X-RAY - ABDOMEN/PELVIS REASON FOR EXAM: Male, 65 years old. NGT placement -- KUB with both diaphragms for NG/OG Verification TECHNIQUE: March 12 2021 12:39 AM upper abdomen or chest COMPARISON: March 11, 2021 FINDINGS: Left lower lobe atelectasis. There are bilateral prior nonacute rib fractures. This study an NG to is present the tip is in the proximal stomach. The bowel loops are distended. There is been a kyphoplasty at L3. RAD/Abdomen Single View (Portable) IMPRESSION: Recommend correlation with timing of the procedure. The NG tube tip is in the stomach however on this particular x-ray which is labeled AP portable upright 1. The NG tube is high. Electronically Signed: Anabella Soares MD at 1:57 EDT Tel , Service support ,
[2021-03-12] MEDS: Lidocaine 4% 5 ML Ampul 2 ML INHALATION ×2 (00:21→21:11)
[2021-03-12] MEDS: Oxymetazoline 0.05% 1 SPRAY SPRAY.BTL 2 SPRAY NASAL ×2 (00:22→21:45)
--- NOTE | 2021-03-12 00:56 | RAD_ITS ---
STUDY: X-RAY - ABDOMEN/ REASON FOR EXAM: Male, 65 years old. Verify ngt placement TECHNIQUE: Single AP view of the upper abdomen COMPARISON: March 12, 2021 12:39 AM upper abdomen x-ray FINDINGS: There is left lower lobe atelectasis. There are nonacute bilateral lower rib fractures. An NG tube is present the tip is in the stomach. There is a gassy appearance of the bowel. There is been a kyphoplasty procedure at the level of L3. RAD/Abdomen Single View IMPRESSION: NG tube tip in the stomach. Partial visualized multiple distended loops of bowel. Electronically Signed: Anabella Soares MD at 1:55 EDT Tel , Service support ,
--- NOTE | 2021-03-12 01:00 | CT_ITS ---
We are attempting to reach an attending provider to discuss findings. An addendum with communication details will be sent when the communication is complete. STUDY: CT ABDOMEN AND PELVIS WITH CONTRAST REASON FOR EXAM: Male, 65 years old. Abdominal pain, SBO -- RADIATION DOSAGE (If Supplied By Facility): CTDIvol = ( 20.37 ) mGy, DLP = ( 1214.96 ) mGycm TECHNIQUE: Transaxial images were obtained from the dome of the diaphragm to the symphysis pubis without oral contrast. IV 100mL Isovue-300 was administered. Sagittal and coronal images were reconstructed. Individualized dose optimization techniques were used for this CT. COMPARISON: 01/31/2020 CT scan abdomen and pelvis FINDINGS: There is a persistent small right effusion. There is lower lobe atelectasis. There is left-sided pleural plaquing mild left pleural thickening. There is a persistent left lower lobe consolidation. There is minimal focus of right lower lobe atelectasis subtle groundglass opacity. There is mild cardiac enlargement. There are stable multiple cysts in the liver compatible with polycystic kidney disease. There is a cyst measuring 2.6 cm in the right hepatic lobe. Normal gallbladder and extrahepatic biliary system. Normal spleen. Normal pancreas. There is an ovoid mass measuring 2.2 x 1.5 cm and the left adrenal gland stable since prior study. There are too numerous to count multiple cysts throughout the right kidney. There 2 numerous to count multiple left-sided renal cysts. There is a distended stomach with an air-fluid level. Multiple distended loops of small bowel present measuring up to 4.5 cm. There is a fecal fluid appearance of the right to midline small bowel involved in a twist or potentially internal hernia within the right lower quadrant which is causing a high-grade small bowel obstruction. There are decompressed loops of small bowel within the right lower quadrant. There is a right-sided fatty inguinal hernia with tortuosity. It contains fluid extending down to the right side of the scrotum. There is a portion of mesenteric fat extending into this hernia with close proximity of a small bowel loop. This is similar to prior study with areas a trace herniation of small bowel into this hernia. There is mild to moderate stool within the colon. There is diverticulosis without visualized diverticulitis. The appendix is visualized the location and appears normal. Is partial calcification of the aorta. There is calcification of the celiac, superior mesenteric artery bilateral renal arteries. Calcifications bilateral common iliac arteries. Normal inferior vena cava. Normal retroperitoneum. Normal urinary bladder. There are prostatic calcifications. There is a fatty umbilical hernia. There is a right-sided fatty inguinal hernia extending down to the scrotum with fluid measuring up to 5.2 x 5.3 cm. See image #48 of the coronal views. There are diffuse degenerative changes of the visualized lumbar spine. There is multilevel loss of height in the lumbar spine. There is been a kyphoplasty procedure with radiopaque material at the level of L2. There is multilevel neural foraminal narrowing. There is moderate central stenosis L3-L4 L4-L5. CT/Abdomen/Pelvis WITH Contrast IMPRESSION: Small bowel obstruction with zone of transition likely in the right lower quadrant associated with a tortuous partially twisted appearance of the mesenteric fat likely complicated or caused by a fatty right inguinal hernia which tortuosity and pulling the fat towards the right inguinal canal. There is a small amount of free fluid within the right inguinal canal into the scrotum as well as the left pericolic gutter. The fluid in the left pericolic gutter is new since the prior study. Stable left adrenal adenoma Adult polycystic kidney disease multiple hepatic cysts. Persistent bilateral pleural effusions left pleural plaquing chronic left lower lobe atelectasis and/or scarring. Advanced degenerative change of the lower lumbar spine chronic loss of height. Electronically Signed: Anabella Soares MD at 5:00 EDT Tel , Service support ,
--- NOTE | 2021-03-12 05:07 | EX.PCM.CON.S ---
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 Atrial fibrillation with rapid ventricular response (04/2019) Back pain Benign hypertension BPH (benign prostatic hyperplasia) Cardiomyopathy in diseases classified elsewhere Chronic obstructive pulmonary disease Chronic renal failure, stage 4 (severe) Chronic serous otitis media of left ear COPD (chronic obstructive pulmonary disease) Current drinker of alcohol Diverticulosis ESRD (end stage renal disease) on dialysis Hiatal hernia Hyperlipidemia Nicotine dependence Paroxysmal atrial fibrillation Persistent atrial fibrillation PKD (polycystic kidney disease) Problem with dialysis access Home Medications albuterol sulfate 2 mg/5 mL oral syrup 2 mg PO TID 12/15/19 [History Last Taken Unknown] Acapella #1 ea 04/05/20 [Rx Last Taken Unknown] electric wheel chair #1 ea 07/03/20 [Rx Last Taken Unknown] sertraline 100 mg PO DAILY 03/08/21 [History Last Taken Unknown] Spiriva Respimat 2 puff INHALATION QDAY #1 ea 03/11/21 [Rx Last Taken Unknown] acetaminophen 650 mg PO Q8H PRN PRN #30 tab 03/11/21 [Rx Last Taken Unknown] albuterol sulfate 2 puff INHALATION Q4H PRN PRN #18 g 03/11/21 [Rx Last Taken Unknown] aspirin 81 mg PO DAILY #30 tab 03/11/21 [Rx Last Taken Unknown] atorvastatin 40 mg PO DAILY #30 tab 03/11/21 [Rx Last Taken Unknown] cetirizine 10 mg PO DAILY #30 tab 03/11/21 [Rx Last Taken Unknown] clopidogrel [Plavix] 75 mg PO DAILY #30 tab 03/11/21 [Rx Last Taken Unknown] diltiazem HCl 180 mg PO DAILY #30 cap 03/11/21 [Rx Last Taken Unknown] fluticasone propion-salmeterol 1 inh INHALATION BID #60 ea 03/11/21 [Rx Last Taken Unknown] furosemide 20 mg PO DAILY #30 tab 03/11/21 [Rx Last Taken Unknown] gabapentin 100 mg PO BID #60 cap 03/11/21 [Rx Last Taken Unknown] hydroxyzine HCl 50 mg PO QHS #30 tab 03/11/21 [Rx Last Taken Unknown] loratadine 10 mg PO DAILY #30 cap 03/11/21 [Rx Last Taken Unknown] metoprolol tartrate 50 mg PO BID #60 tab 03/11/21 [Rx Last Taken Unknown] nitroglycerin 0.4 mg SUBLINGUAL Q5-15M PRN #30 tab 03/11/21 [Rx Last Taken Unknown] ondansetron 4 mg PO Q8H PRN PRN #30 tab 03/11/21 [Rx Last Taken Unknown] sevelamer carbonate 800 mg PO TIDCM #90 tab 03/11/21 [Rx Last Taken Unknown] tamsulosin 0.4 mg PO DAILY #30 cap 03/11/21 [Rx Last Taken 09/17/17] Allergy/AdvReac Type Severity Reaction Status Date / Time Penicillins Allergy Unknown Verified 08/16/20 22:01 Family History Mother Cancer brain Father Cancer throat Surgical History (Updated 03/09/21 @ 14:16 by Emerita Eaton) History of angioplasty of peripheral vessel (07/2019) History of coronary artery stent placement Surgically constructed arteriovenous fistula Social History (Updated 03/08/21 @ 06:[address] Saranya Shirley MD) household members: none housing: apartment Smoking Status: Current every day smoker tobacco type: cigarettes Smoking packs per day: 1 Smoking cigarettes per day: 20.0 alcohol intake: current Alcohol type: beer details: Notes 2-3 beers, QOD substance use type: does not use Lab / Micro Data Result Diagrams: 03/10/21 10:08 03/10/21 10:08 Micro: Microbiology 03/09/21 18:30 Sputum, Expectorated/Coughed Gram Stain - Final 03/09/21 18:30 Sputum, Expectorated/Coughed Respiratory Culture - Final Stenotrophomonas maltophilia Radiology Impression KUB X-Ray 03/11/21 21:00 IMPRESSION: Diffuse abnormally distended air-filled bowel loops suggesting distal small bowel obstruction or possible ileus. Consider upright imaging to assess for air-fluid levels or CT for further evaluation. Electronically Signed: Lalit Kate DO at 23:17 EDT Tel , Service support , ADDENDUM: 03/11/21 2326 IMPRESSION: Diffuse abnormally distended air-filled bowel loops suggesting distal small bowel obstruction or possible ileus. Consider upright imaging to assess for air-fluid levels or CT for further evaluation. N.B. : The above Results were Read Back by Lalit Kate DO to Chasity Armando RN, and understanding confirmed on 03/11/2021 23:19:20 (ET). Electronically Signed: Lalit Kate DO at 23:17 EDT Tel , Service support , KUB X-Ray 03/12/21 00:00 IMPRESSION: Recommend correlation with timing of the procedure. The NG tube tip is in the stomach however on this particular x-ray which is labeled AP portable upright 1. The NG tube is high. Electronically Signed: Anabella Soares MD at 1:57 EDT Tel , Service support , KUB X-Ray 03/12/21 00:56 IMPRESSION: NG tube tip in the stomach. Partial visualized multiple distended loops of bowel. Electronically Signed: Anabella Soares MD at 1:55 EDT Tel , Service support , Abdomen/Pelvis CT 03/12/21 01:00 IMPRESSION: Small bowel obstruction with zone of transition likely in the right lower quadrant associated with a tortuous partially twisted appearance of the mesenteric fat likely complicated or caused by a fatty right inguinal hernia which tortuosity and pulling the fat towards the right inguinal canal. There is a small amount of free fluid within the right inguinal canal into the scrotum as well as the left pericolic gutter. The fluid in the left pericolic gutter is new since the prior study. Stable left adrenal adenoma Adult polycystic kidney disease multiple hepatic cysts. Persistent bilateral pleural effusions left pleural plaquing chronic left lower lobe atelectasis and/or scarring. Advanced degenerative change of the lower lumbar spine chronic loss of height. Electronically Signed: Anabella Soares MD at 5:00 EDT Tel , Service support ,
--- NOTE | 2021-03-12 05:07 | EX.PCM.CON.S ---
Assessment & Plan Assessment/Plan (1) SBO (small bowel obstruction): (2) History of coronary artery stent placement: PLAN: Patient is noncompliant and refuses medical therapy. Patient had NG placed after extensive conversation about the importance. And patient proceeded to pull the NG because he felt better after drinking a liter. CT abdomen pelvis was done which showed likely small bowel obstruction with transition towards the ileum. Patient also had right inguinal hernia which has fluid and some abdominal adipose tissue which may be tethering on the mesentery. Did attempt to reduce this however patient had discomfort and told me to stop. Patient was not interested in a repeat NG or reducing the hernia or surgery, which I would not plan to do if patient would be unwilling to have the NG placed. Did discuss that patient may not be able to eat and would continue to have abdominal pain and could possibly , patient stated he did not care he was going home today. Strongly recommend NG be replaced, again discussed the importance patient still refused. Discussed with Dr. Shirley. Olamide Arreguin M.D. Pager: [phone] [facility] [address] [place] [address], [address] [place] [address] Office: [phone] HPI Consult Data Date of Consult: 03/12/21 HPI Narrative HPI Narrative: ALEJA RICHARD, is a 65 M who presents presented today to the ER with an NSTEMI did undergo a heart cath and have a cardiac catheter placed on 03/08. Patient yesterday had nausea and vomiting KUB was done which showed dilated small bowel. NG was initially placed however patient did pull that out once he began to feel better. Initially CT abdomen pelvis was scheduled after the NG placement in order to decompress so he can get p.o. contrast however that was unable to be done since he pulled out the NG and patient only took 2 sips of the contrast because does not like the taste. [facility] Medical History (Updated 03/12/21 @ 05:[address] 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 Atrial fibrillation with rapid ventricular response (04/2019) Back pain Benign hypertension BPH (benign prostatic hyperplasia) Cardiomyopathy in diseases classified elsewhere Chronic obstructive pulmonary disease Chronic renal failure, stage 4 (severe) Chronic serous otitis media of left ear COPD (chronic obstructive pulmonary disease) Current drinker of alcohol Diverticulosis ESRD (end stage renal disease) on dialysis Hiatal hernia Hyperlipidemia Nicotine dependence Paroxysmal atrial fibrillation Persistent atrial fibrillation PKD (polycystic kidney disease) Problem with dialysis access Home Medications albuterol sulfate 2 mg/5 mL oral syrup 2 mg PO TID 12/15/19 [History Last Taken Unknown] Acapella #1 ea 04/05/20 [Rx Last Taken Unknown] electric wheel chair #1 ea 07/03/20 [Rx Last Taken Unknown] sertraline 100 mg PO DAILY 03/08/21 [History Last Taken Unknown] Spiriva Respimat 2 puff INHALATION QDAY #1 ea 03/11/21 [Rx Last Taken Unknown] acetaminophen 650 mg PO Q8H PRN PRN #30 tab 03/11/21 [Rx Last Taken Unknown] albuterol sulfate 2 puff INHALATION Q4H PRN PRN #18 g 03/11/21 [Rx Last Taken Unknown] aspirin 81 mg PO DAILY #30 tab 03/11/21 [Rx Last Taken Unknown] atorvastatin 40 mg PO DAILY #30 tab 03/11/21 [Rx Last Taken Unknown] cetirizine 10 mg PO DAILY #30 tab 03/11/21 [Rx Last Taken Unknown] clopidogrel [Plavix] 75 mg PO DAILY #30 tab 03/11/21 [Rx Last Taken Unknown] diltiazem HCl 180 mg PO DAILY #30 cap 03/11/21 [Rx Last Taken Unknown] fluticasone propion-salmeterol 1 inh INHALATION BID #60 ea 03/11/21 [Rx Last Taken Unknown] furosemide 20 mg PO DAILY #30 tab 03/11/21 [Rx Last Taken Unknown] gabapentin 100 mg PO BID #60 cap 03/11/21 [Rx Last Taken Unknown] hydroxyzine HCl 50 mg PO QHS #30 tab 03/11/21 [Rx Last Taken Unknown] loratadine 10 mg PO DAILY #30 cap 03/11/21 [Rx Last Taken Unknown] metoprolol tartrate 50 mg PO BID #60 tab 03/11/21 [Rx Last Taken Unknown] nitroglycerin 0.4 mg SUBLINGUAL Q5-15M PRN #30 tab 03/11/21 [Rx Last Taken Unknown] ondansetron 4 mg PO Q8H PRN PRN #30 tab 03/11/21 [Rx Last Taken Unknown] sevelamer carbonate 800 mg PO TIDCM #90 tab 03/11/21 [Rx Last Taken Unknown] tamsulosin 0.4 mg PO DAILY #30 cap 03/11/21 [Rx Last Taken 09/17/17] Allergy/AdvReac Type Severity Reaction Status Date / Time Penicillins Allergy Unknown Verified 08/16/20 22:01 Family History Mother Cancer brain Father Cancer throat Surgical History (Updated 03/09/21 @ 14:16 by Emerita Eaton) History of angioplasty of peripheral vessel (07/2019) History of coronary artery stent placement Surgically constructed arteriovenous fistula Social History (Updated 03/08/21 @ 06:[address] Saranya Shirley MD) household members: none housing: apartment Smoking Status: Current every day smoker tobacco type: cigarettes Smoking packs per day: 1 Smoking cigarettes per day: 20.0 alcohol intake: current Alcohol type: beer details: Notes 2-3 beers, QOD substance use type: does not use ROS Constitutional Constitutional: Reports fatigue Eyes Eyes: Denies blurry vision Cardiovascular Cardiovascular: Denies chest pain Gastrointestinal Gastrointestinal: Reports abdominal pain, anorexia, nausea and vomiting Genitourinary Genitourinary: Denies burning urination Integumentary Integumentary: Denies rash Neurologic Neurologic: Denies confusion Psychiatric Psychiatric: Reports irritability Endocrine Endocrinology: Denies palpitations Hematologic/Lymphatic Hematologic/Lymphatic: Reports easy bruising; Denies anemia Physical Exam Const Constitutional Narrative: Noncompliant, noncooperative HEENT normocephalic Resp Auscultation: wheezes Cardio Rate: regular rate GI soft to palpation Inspection: abdominal distention Palpation: tender RUQ; Negative for guarding Skin Lesions: no lesions Rashes: No no rashes Neuro CN's II-XII intact bilaterally Lab / Micro Data Result Diagrams: 03/12/21 04:54 03/12/21 05:10 Micro: Microbiology 03/09/21 18:30 Sputum, Expectorated/Coughed Gram Stain - Final 03/09/21 18:30 Sputum, Expectorated/Coughed Respiratory Culture - Final Stenotrophomonas maltophilia Radiology Impression KUB X-Ray 03/11/21 21:00 IMPRESSION: Diffuse abnormally distended air-filled bowel loops suggesting distal small bowel obstruction or possible ileus. Consider upright imaging to assess for air-fluid levels or CT for further evaluation. Electronically Signed: Lalit Kate DO at 23:17 EDT Tel , Service support , ADDENDUM: 03/11/21 2326 IMPRESSION: Diffuse abnormally distended air-filled bowel loops suggesting distal small bowel obstruction or possible ileus. Consider upright imaging to assess for air-fluid levels or CT for further evaluation. N.B. : The above Results were Read Back by Lalit Kate DO to Chasity Armando RN, and understanding confirmed on 03/11/2021 23:19:20 (ET). Electronically Signed: Lalit Kate DO at 23:17 EDT Tel , Service support , KUB X-Ray 03/12/21 00:00 IMPRESSION: Recommend correlation with timing of the procedure. The NG tube tip is in the stomach however on this particular x-ray which is labeled AP portable upright 1. The NG tube is high. Electronically Signed: Anabella Soares MD at 1:57 EDT Tel , Service support , KUB X-Ray 03/12/21 00:56 IMPRESSION: NG tube tip in the stomach. Partial visualized multiple distended loops of bowel. Electronically Signed: Anabella Soares MD at 1:55 EDT Tel , Service support , Abdomen/Pelvis CT 03/12/21 01:00 IMPRESSION: Small bowel obstruction with zone of transition likely in the right lower quadrant associated with a tortuous partially twisted appearance of the mesenteric fat likely complicated or caused by a fatty right inguinal hernia which tortuosity and pulling the fat towards the right inguinal canal. There is a small amount of free fluid within the right inguinal canal into the scrotum as well as the left pericolic gutter. The fluid in the left pericolic gutter is new since the prior study. Stable left adrenal adenoma Adult polycystic kidney disease multiple hepatic cysts. Persistent bilateral pleural effusions left pleural plaquing chronic left lower lobe atelectasis and/or scarring. Advanced degenerative change of the lower lumbar spine chronic loss of height. Electronically Signed: Anabella Soares MD at 5:00 EDT Tel , Service support , Charges/Coding Visit Charges Inpatient E&M: 84514 Init Hosp L3
[2021-03-12 05:32] LABS: Absolute Lymphocyte Count 0.47 X10^3/uL (0.83-4.51); Absolute Neutrophil Count 8.8 X10^3/uL (2.0-7.7); Basophil# 0.01 X10^3/uL; Basophil% 0.1 % (0-1); Hematocrit 28.4 % (40-54); Hemoglobin 8.9 g/dL (13.0-16.5); Lymphocyte # 0.47 X10^3/ul (0.83-4.51); Lymphocyte % 4.5 % (19-41); Mean Corp Hgb Conc 31.3 g/dL (32-36); Mean Corpuscular Hgb 30.7 pg (27.0-32.0); Mean Corpuscular Volume 97.9 fL (80-94); Mean Platelet Vol. 10.3 fl (6.2-12.0); Monocyte# 1.08 X10^3/uL; Monocyte% 10.4 % (0-10); NRBC Flagged by Analyzer 0.2 % (0-5); Neutrophil # 8.84 X10^3/uL (2.7-7.7); Neutrophil % 84.7 % (47-70); POSITIVE DIFFERENTIAL YES; Platelet Count 275 K/mm3 (150-450); RBC Distribution Width CV 14.8 % (11.6-14.6); RBC Distribution Width SD 51.8 fl (35.1-43.9); White Blood Count 10.4 K/mm3 (4.4-11.0)
[2021-03-12 05:35] LABS: Differential Indicated SCAN CRITERIA MET
[2021-03-12 05:59] LABS: Anion Gap 7 (5-15); BUN 39 mg/dL (7-18); BUN/Creat Ratio 9.4 RATIO (10-20); Calcium,Total 8.3 mg/dL (8.5-10.1); Chloride 87 mmol/L (98-107); Creatinine, Serum 4.13 mg/dL (0.70-1.30); EST Glomerular Filtration Rate 16 mL/min (>60); Est Glom Filt Rate - Afr Amer 19 mL/min (>60); Estimated Creatinine Clearance 17.12 ml/min; Glucose 134 mg/dL (74-106); Potassium 4.3 mmol/L (3.5-5.1); Sodium Level 131 mmol/L (136-145)
[2021-03-12 07:00] LABS: Differential Comment SCANNED
[2021-03-12] MEDS: Ipratropium/Albuterol Sulfate 3 ML AMPUL.NEB INHALATION ×3 (07:55→18:48)
--- NOTE | 2021-03-12 08:20 | PCM.PN.BLA ---
Progress Note Evaluated patient this morning laying in bed. Patient denies abdominal pain. He states he does not want an NG tube placed back in unless he is placed under anesthesia. He denies flatus and BM. He denies nausea, vomiting. Physical Exam GI Auscultation: absent bowel sounds Palpation: tender other (right sided abdominal pain) Assessment & Plan Assessment/Plan (1) SBO (small bowel obstruction): PLAN: Dr. Arreguin and I have discussed with the patient about replacing the NG tube. Patient continues to refuse NG tube placement. Patient has multiple co-morbidities and is a high risk surgical candidate. Patient believes he will be able to pass flatus and have a BM on his own. We will continue to monitor this patient. Visit Charges Inpatient E&M: 21333 Init Hosp L1 (no charge)
[2021-03-12] MEDS: Morphine 2 MG/ML Syringe IV ×2 (08:46→08:55)
[2021-03-12] MEDS: 0.9% Saline Lock 10 ML Syringe IV ×5 (08:53→23:58)
[2021-03-12] MEDS: Multivitamins,Ther W-Minerals Tablet 1 TABLET PO (08:54)
[2021-03-12] MEDS: Aspirin E.C. 81 MG Tablet PO (08:54)
[2021-03-12] MEDS: Metoprolol Tartrate 50 MG Tablet PO (08:55)
[2021-03-12] MEDS: Docusate Sodium 100 MG Capsule PO (08:55)
[2021-03-12] MEDS: Tamsulosin HCl 0.4 MG Capsule PO (08:55)
[2021-03-12] MEDS: Gabapentin 100 MG Capsule PO (08:56)
[2021-03-12] MEDS: Clopidogrel Bisulfate 75 MG Tablet PO (08:57)
[2021-03-12] MEDS: Sertraline 100 MG Tablet PO (08:57)
[2021-03-12] MEDS: Loratadine 10 MG Tablet PO (08:58)
[2021-03-12] MEDS: dilTIAZem CD 180 MG Capsule PO (08:58)
--- NOTE | 2021-03-12 09:22 | PCM.PN.BLA ---
Progress Note Dr. Gonzalez was able to talk patient to allow me to evaluate the hernia and try to reduce it. Did attempt to reduce the hernia and gave patient 4 of morphine however patient was unable to relaxed and he did not want me to continue pushing due to the discomfort. Will check with patient after seeing if anesthesia can provide conscious sedation see if you would be willing to let me try to reduce the hernia during conscious sedation and then possibly place an NG tube. Nursing is checking with patient-as anesthesia was agreeable.
--- NOTE | 2021-03-12 09:38 | EKG12_ITS ---
Test Reason : Blood Pressure : / mmHG Vent. Rate : 104 BPM Atrial Rate : 104 BPM P-R Int : 174 ms QRS Dur : 112 ms QT Int : 418 ms P-R-T Axes : 049 052 182 degrees QTc Int : 549 ms Sinus tachycardia Incomplete left bundle branch block ST & Marked T wave abnormality, consider anterolateral ischemia Prolonged QT Abnormal ECG When compared with ECG of 11-MAR-2021 21:21, MANUAL COMPARISON REQUIRED, DATA IS UNCONFIRMED Confirmed by GONZALO CERVANTES, CARA ([id number]), editor city SEAN WEBB ([id number]) on 03/13/2021 9:38:47 AM Referred By: OMAR Confirmed By:CARA SÁNCHEZ MD
[2021-03-12] MEDS: Lidocaine 2% Jelly 1 APPLIC Tube (10:30)
--- NOTE | 2021-03-12 10:38 | PCM.PN.BLA ---
Progress Note Patient did undergo an exam under anesthesia and placement of NG tube. Did get 400 cc of brown fluid out with the NG tube we will check a KUB-placement was confirmed time due to auscultation of the stomach. Patient's right inguinal hernia was also able to be reduced. We will continue to monitor recommend continue NG tube would plan to get PO (down NG) contrast study once patient's bowels have a chance to decompress.
--- NOTE | 2021-03-12 11:00 | RAD_ITS ---
INDICATION: NG TUBE PLACEMENT EXAMINATION/TECHNIQUE: X-RAY - XR Abdomen 1 View COMPARISON: Study obtained on 03/11/2021. FINDINGS: Nasogastric tube visualized with tip in the stomach, seems to have been slightly withdrawn in comparison to the prior study. BOWEL GAS PATTERN: Distended small bowel loops visualized consistent with small bowel obstruction, no evidence of air-fluid levels is visualized. No evidence of stomach or large bowel distention. FREE AIR: No evidence of free intraperitoneal air is seen. ORGANOMEGALY: Not seen. CALCIFICATIONS: No abnormal calcifications observed. LOWER CHEST: No acute pathology. BONES AND SOFT TISSUES: No acute pathology. Prominence of the bronchovascular interstitial lung markings visualized in the lung tee bilaterally, mild cardiomegaly is seen. Mild degenerative bone changes seen. RAD/Abdomen Single View (Portable) IMPRESSION: Small bowel obstruction. Nasogastric tube visualized with tip in the stomach. Electronically Signed: Adrian Anderson MD at 11:24 EDT Tel , Service support ,
[2021-03-12] MEDS: Enoxaparin 30 MG/0.3 ML Syringe SC (11:45)
--- NOTE | 2021-03-12 13:45 | CASEMGMT ---
MJ was notified that patient has a assistant case manager with [employer]. His assistant case manager is Elle Galindo ([phone]). MJ called Elle and left her a voice mail requesting a return call. Francie BROTHERS
--- NOTE | 2021-03-12 13:46 | PN.HOSP_ITS ---
Subjective Subjective Patient seen and examined. He complained of abdominal pain and nausea and vomiting overnight. KUB done showed evidence of small bowel obstruction. General surgery consulted, and it is thought to be due to his right inguinal hernia. He denies fever, chills, shortness of breath, cough, but admits to nausea. He says he isnt passing gas. Review of systems is otherwise negative. He has remained hemodynamically stable. Objective Data Objective Data Vital Signs: Vital Signs Temp Pulse Resp BP Pulse Ox 98.5 F 100 20 H 101/61 94 03/12/21 11:40 03/12/21 11:40 03/12/21 11:40 03/12/21 11:40 03/12/21 11:40 Oxygen Flow Rate (L/min) 5 Oxygen Delivery Method Nasal Cannula Weight: 174 lb 6.17 oz Body Mass Index (BMI) 28.8 Intake & Output: Intake and Output for Last 24 Hours 03/10/21 03/11/21 03/12/21 23:59 23:59 23:59 Intake Total 1260 / 1260 240 / 240 931.25 / 931.25 Output Total 1999 / 1999 1300 / 1300 1050 / 1050 Balance -740 / -740 -1060 / -1060 -118.75 / -118.75 Lab / Micro Data Result Diagrams: 03/12/21 04:54 03/12/21 05:10 Labs: Laboratory Results - last 24 hr 03/12/21 04:54: WBC 10.4, RBC 2.90 L, Hgb 8.9 L, Hct 28.4 L, MCV 97.9 H, MCH 30.7, MCHC 31.3 L, RDW Std Deviation 51.8 H, RDW Coeff of Karl 14.8 H, Plt Count 275, MPV 10.3, Immature Gran % (Auto) 0.300, Neut % (Auto) 84.7 H, Lymph % (A uto) 4.5 L, Dickson % (Auto) 10.4 H, Eos % (Auto) 0.0, Baso % (Auto) 0.1, Absolute Neuts (auto) 8.8 H, Absolute Lymphs (auto) 0.47 L, Nucleated RBC % 0.2, Differential Comment SCANNED 03/12/21 05:10: Sodium 131 L, Potassium 4.3, Chloride 87 L, Carbon Dioxide 37.0 H, Anion Gap 7, BUN 39 H, Creatinine 4.13 H, Estim Creat Clear Calc 17.12, Est GFR (MDRD) Af Amer 19 L, Est GFR (MDRD) Non-Af 16 L, BUN/Creatinine Ratio 9.4 L, Glucose 134 H, Calcium 8.3 L Micro: Microbiology 03/09/21 18:30 Sputum, Expectorated/Coughed Gram Stain - Final 03/09/21 18:30 Sputum, Expectorated/Coughed Respiratory Culture - Final Stenotrophomonas maltophilia 03/08/21 06:53 Mucosa - Nose Respiratory Panel (PCR) - Final 03/08/21 03:27 Nasal Secretion SARS-CoV-2 Antigen (Rapid) - Final Radiography Diagnostic Testing: Radiology Impression KUB X-Ray 03/11/21 21:00 IMPRESSION: Diffuse abnormally distended air-filled bowel loops suggesting distal small bowel obstruction or possible ileus. Consider upright imaging to assess for air-fluid levels or CT for further evaluation. Electronically Signed: Lalit Kate DO at 23:17 EDT Tel , Service support , ADDENDUM: 03/11/21 0812 IMPRESSION: Diffuse abnormally distended air-filled bowel loops suggesting distal small bowel obstruction or possible ileus. Consider upright imaging to assess for air-fluid levels or CT for further evaluation. N.B. : The above Results were Read Back by Lalit Kate DO to Chasity Armando RN, and understanding confirmed on 03/11/2021 23:19:20 (ET). Electronically Signed: Lalit Kate DO at 23:17 EDT Tel , Service support , KUB X-Ray 03/12/21 00:00 IMPRESSION: Recommend correlation with timing of the procedure. The NG tube tip is in the stomach however on this particular x-ray which is labeled AP portable upright 1. The NG tube is high. Electronically Signed: Anabella Soares MD at 1:57 EDT Tel , Service support , KUB X-Ray 03/12/21 00:56 IMPRESSION: NG tube tip in the stomach. Partial visualized multiple distended loops of bowel. Electronically Signed: Anabella Soares MD at 1:55 EDT Tel , Service support , Abdomen/Pelvis CT 03/12/21 01:00 IMPRESSION: Small bowel obstruction with zone of transition likely in the right lower quadrant associated with a tortuous partially twisted appearance of the mesenteric fat likely complicated or caused by a fatty right inguinal hernia which tortuosity and pulling the fat towards the right inguinal canal. There is a small amount of free fluid within the right inguinal canal into the scrotum as well as the left pericolic gutter. The fluid in the left pericolic gutter is new since the prior study. Stable left adrenal adenoma Adult polycystic kidney disease multiple hepatic cysts. Persistent bilateral pleural effusions left pleural plaquing chronic left lower lobe atelectasis and/or scarring. Advanced degenerative change of the lower lumbar spine chronic loss of height. Electronically Signed: Anabella Soares MD at 5:00 EDT Tel , Service support , ADDENDUM: 03/12/21 0510 IMPRESSION: Small bowel obstruction with zone of transition likely in the right lower quadrant associated with a tortuous partially twisted appearance of the mesenteric fat likely complicated or caused by a fatty right inguinal hernia which tortuosity and pulling the fat towards the right inguinal canal. There is a small amount of free fluid within the right inguinal canal into the scrotum as well as the left pericolic gutter. The fluid in the left pericolic gutter is new since the prior study. Stable left adrenal adenoma Adult polycystic kidney disease multiple hepatic cysts. Persistent bilateral pleural effusions left pleural plaquing chronic left lower lobe atelectasis and/or scarring. Advanced degenerative change of the lower lumbar spine chronic loss of height. N.B. : The above Results were Read Back by Anabella Soares MD to Chasity Armando RN, and understanding confirmed on 03/12/2021 05:04:01 (ET). Electronically Signed: Anabella Soares MD at 5:00 EDT Tel , Service support , KUB X-Ray 03/12/21 11:00 IMPRESSION: Small bowel obstruction. Nasogastric tube visualized with tip in the stomach. Electronically Signed: Adrian Anderson MD at 11:24 EDT Tel , Service support , Physical Exam Const alert, oriented x3 and no apparent distress General Appearance: cooperative and comfortable Exam Limitations: no limitations HEENT normocephalic, head/scalp atraumatic and moist oral mucous membranes Head and Scalp: normocephalic Eyes PERRL, EOMs intact bilaterally and conjunctivae normal Neck no lymphadenopathy Resp Resp Narrative: coarse crackles in mid and lower lung tee bilaterally. on 5L of oxygen by nasal cannula Cardio regular rate, regular rhythm, S1 normal heart sound, S2 normal heart sound and no murmurs GI normal to inspection, nondistended, normoactive bowel sounds, soft to palpation, non-tender and non-distended Extremity normal to inspection and full ROM Extremity Narrative: AV fistula with good thrill in LUE Peripheral Pulses: Yes pulses 2+ throughout Skin no rashes or lesions noted Neuro oriented x3, CN's II-XII intact bilaterally and moves all extremities Sensorium / Orientation: awake and alert Psych affect normal Assessment & Plan Assessment/Plan (1) Elevated troponin: (2) Alcoholic cardiomyopathy: (3) Paroxysmal atrial fibrillation: (4) Hyperlipidemia: QUALIFIERS: Hyperlipidemia type: unspecified Qualified Code(s): E78.5 - Hyperlipidemia, unspecified (5) Benign hypertension: (6) ESRD (end stage renal disease) on dialysis: PLAN: #Nonstemi * s/p cardiac cath which showed significant left circumflex artery lesion and totally occluded RCA with right to left collaterals; s/p PCI * on aspirin and plavix, high intensity statin and metoprolol * cardiology on board * #Small bowel obstruction * complained of nausea and vomiting. * KUB showed small bowel obstruction * general surgery consulted; patient didnt cooperate with bedside reduction of his right inguinal hernia * He had examunation under anesthesia with placement of NG tube; right inguinal hernia was reduced. * patient ended up pulling out his NG tube on the floor, despite being counseled about the importance of keeping his NG tube in place. * #acute on chronic hypoxic respiratory failure due to COPD exacerbation * on breathing treatment with bronchodilators * titrate oxygen to maintain sats > 90% * weaned off BIPAP. Now on 4L of oxygen by nasal canula * patient now says he actually wears 3-4L of oxygen at home, so appears to be at his baseline * will switch to PO prednisone. #ESRD: * on HD T/T/S. * Nephrology on board. * #Hypertension; on metoprolol. #History of afib: on cardizem and metoprolol. chronic hyponatremia: sodium is 131 today. This is chronic and could be due to chronic alcohol abuse. Will monitor #Anxiety and depression; on sertraline #History of alcohol abuse * on alcohol withdrawal protocol. * PO mutivite, folic acid and thiamine. * DVT prophylaxis: lovenox, renal dose. Disposition: for DC home tomorrow. Charges/Coding Visit Charges Inpatient E&M: 99194 Subs Hosp L3
[2021-03-12] MEDS: Metoprolol Tartrate 5 MG/5 ML Vial IV (14:17)
[2021-03-12] MEDS: hydrALAZINE 20 MG/ML Vial 10 MG IV (16:07)
--- NOTE | 2021-03-12 16:20 | CASEMGMT ---
TEZ CM NOTE: Baldomero Okeefe @ [facility], pt is active w/them for Palliative Care. Theresa GRUBER RN CM
[2021-03-12 16:46] LABS: Allen Test Positive; Base Excess 8 mmol/L (-2 to +2); Bicarbonate 31.3 mmol/L (22-26); Blood Gas Specimen Type ART; O2 Delivery Device Cannula; PO2 65 mmHG (75-100); SITE R Radial; SO2 94 % (95-99); Total Carbon Dioxide 33 mmol/L; pH 7.47 (7.35-7.45)
--- NOTE | 2021-03-12 17:00 | RAD_ITS ---
STUDY: X-RAY CHEST REASON FOR EXAM: Male, 65 years old. sob TECHNIQUE: Single AP portable view of the chest. COMPARISON: March 08, 2021 FINDINGS: Interval appearance of moderate patchy consolidation in the bilateral lower lobes. Chronic scarring and volume loss in the left lung base. Cystic emphysematous changes are present. Normal size heart. Normal mediastinum and ania. Normal visualized pulmonary arteries. Normal visualized aortic arch and descending thoracic aorta. Normal visualized thoracic spine. Normal visualized ribs, clavicles, and shoulders. There is no demonstrated abnormality of the visualized soft tissue structures of the upper abdomen. RAD/Chest 1 View (Portable) IMPRESSION: 1. Interval appearance of moderate patchy consolidation in the bilateral lower lobes. Chronic scarring and volume loss in the left lung base. Aspiration versus community-acquired pneumonia. Cystic emphysematous changes are present. Electronically Signed: Odell Zee MD at 19:06 EDT , Service support ,
--- NOTE | 2021-03-12 19:16 | PCM.HOSP.N ---
Hospitalist Note Notified of Dr. Gonzalez that patient was hypotensive and needed transfer to ICU and initiated on a Levophed drip. Dr. Delvalle notified, states he will go evaluate patient but to put in transfer orders and Levophed drip orders immediately.
--- NOTE | 2021-03-12 19:30 | NURSING ---
Report called to TEZ Law in ICU. This RN and charge machine operator to transfer patient to ICU room 7
--- NOTE | 2021-03-12 19:33 | PCM.PN.BLA ---
Progress Note Patient was seen because of hypotension . Alert oriented x3. Heart sounds S1-S2 present. Lungs rhonchi. Abdomen soft, mildly tender nondistended. Extremity edema Hypotensive Reportedly received a as needed blood pressure medication earlier on for hypertensive. And had hernia reduced. We will check a KUB. We will transfer to intensive care unit and start on pressors. Abnormal chest x-ray. X-ray with bilateral opacities more prominent at right middle and lower lung tee. Will start clindamycin. Allergic to penicillin. Of note patient has no fever. White count is not elevated. Check a CBC and lactic acid.
[2021-03-12 20:59] LABS: Absolute Lymphocyte Count 0.49 X10^3/uL (0.83-4.51); Absolute Neutrophil Count 10.5 X10^3/uL (2.0-7.7); Basophil# 0.03 X10^3/uL; Basophil% 0.3 % (0-1); Hemoglobin 9.7 g/dL (13.0-16.5); Lymphocyte # 0.49 X10^3/ul (0.83-4.51); Lymphocyte % 4.3 % (19-41); Mean Corp Hgb Conc 31.3 g/dL (32-36); Mean Corpuscular Hgb 30.6 pg (27.0-32.0); Mean Corpuscular Volume 97.8 fL (80-94); Mean Platelet Vol. 10.4 fl (6.2-12.0); Monocyte# 0.35 X10^3/uL; Monocyte% 3.1 % (0-10); NRBC Flagged by Analyzer 0.7 % (0-5); Neutrophil # 10.53 X10^3/uL (2.7-7.7); POSITIVE DIFFERENTIAL YES; POSITIVE MORPHOLOGY YES; Platelet Count 270 K/mm3 (150-450); RBC Distribution Width CV 15.4 % (11.6-14.6); RBC Distribution Width SD 53.1 fl (35.1-43.9); Red Blood Count 3.17 M/mm3 (4.6-6.2); White Blood Count 11.4 K/mm3 (4.4-11.0)
[2021-03-12 21:21] LABS: Anion Gap 6 (5-15); BUN 54 mg/dL (7-18); BUN/Creat Ratio 10.6 RATIO (10-20); Calcium,Total 8.4 mg/dL (8.5-10.1); Chloride 91 mmol/L (98-107); EST Glomerular Filtration Rate 12 mL/min (>60); Est Glom Filt Rate - Afr Amer 15 mL/min (>60); Estimated Creatinine Clearance 13.86 ml/min; Glucose 99 mg/dL (74-106); Potassium 4.5 mmol/L (3.5-5.1); Sodium Level 133 mmol/L (136-145)
[2021-03-12 21:28] LABS: Differential Indicated SCAN CRITERIA MET
[2021-03-12 21:33] LABS: Lactic Acid 2.2 mmol/L (0.4-1.9)
--- NOTE | 2021-03-12 21:40 | NURSING ---
Dr Huang at bedside to place central line.
--- NOTE | 2021-03-12 21:47 | SEPSIS_ITS ---
Sepsis Note Physical Exam/Vitals Objective: KUB X-Ray 03/11/21 21:00 IMPRESSION: Diffuse abnormally distended air-filled bowel loops suggesting distal small bowel obstruction or possible ileus. Consider upright imaging to assess for air-fluid levels or CT for further evaluation. Electronically Signed: Lalit Kate DO at 23:17 EDT Tel , Service support , ADDENDUM: 03/11/21 2326 IMPRESSION: Diffuse abnormally distended air-filled bowel loops suggesting distal small bowel obstruction or possible ileus. Consider upright imaging to assess for air-fluid levels or CT for further evaluation. N.B. : The above Results were Read Back by Lalit Kate DO to Chasity Armando RN, and understanding confirmed on 03/11/2021 23:19:20 (ET). Electronically Signed: Lalit Kate DO at 23:17 EDT Tel , Service support , KUB X-Ray 03/12/21 00:00 IMPRESSION: Recommend correlation with timing of the procedure. The NG tube tip is in the stomach however on this particular x-ray which is labeled AP portable upright 1. The NG tube is high. Electronically Signed: Anabella Soares MD at 1:57 EDT Tel , Service support , KUB X-Ray 03/12/21 00:56 IMPRESSION: NG tube tip in the stomach. Partial visualized multiple distended loops of bowel. Electronically Signed: Anbaella Soares MD at 1:55 EDT Tel , Service support , Abdomen/Pelvis CT 03/12/21 01:00 IMPRESSION: Small bowel obstruction with zone of transition likely in the right lower quadrant associated with a tortuous partially twisted appearance of the mesenteric fat likely complicated or caused by a fatty right inguinal hernia which tortuosity and pulling the fat towards the right inguinal canal. There is a small amount of free fluid within the right inguinal canal into the scrotum as well as the left pericolic gutter. The fluid in the left pericolic gutter is new since the prior study. Stable left adrenal adenoma Adult polycystic kidney disease multiple hepatic cysts. Persistent bilateral pleural effusions left pleural plaquing chronic left lower lobe atelectasis and/or scarring. Advanced degenerative change of the lower lumbar spine chronic loss of height. Electronically Signed: Anabella Soares MD at 5:00 EDT Tel , Service support , ADDENDUM: 03/12/21 0510 IMPRESSION: Small bowel obstruction with zone of transition likely in the right lower quadrant associated with a tortuous partially twisted appearance of the mesenteric fat likely complicated or caused by a fatty right inguinal hernia which tortuosity and pulling the fat towards the right inguinal canal. There is a small amount of free fluid within the right inguinal canal into the scrotum as well as the left pericolic gutter. The fluid in the left pericolic gutter is new since the prior study. Stable left adrenal adenoma Adult polycystic kidney disease multiple hepatic cysts. Persistent bilateral pleural effusions left pleural plaquing chronic left lower lobe atelectasis and/or scarring. Advanced degenerative change of the lower lumbar spine chronic loss of height. N.B. : The above Results were Read Back by Anabella Soares MD to Chasity Armando RN, and understanding confirmed on 03/12/2021 05:04:01 (ET). Electronically Signed: Anabella Soares MD at 5:00 EDT Tel , Service support , KUB X-Ray 03/12/21 11:00 IMPRESSION: Small bowel obstruction. Nasogastric tube visualized with tip in the stomach. Electronically Signed: Adrian Anderson MD at 11:24 EDT Tel , Service support , Chest X-Ray 03/12/21 17:00 IMPRESSION: 1. Interval appearance of moderate patchy consolidation in the bilateral lower lobes. Chronic scarring and volume loss in the left lung base. Aspiration versus community-acquired pneumonia. Cystic emphysematous changes are present. Electronically Signed: Odell Zee MD at 19:06 EDT , Service support , Temp Pulse Resp BP Pulse Ox 97.2 F L 89 22 H 90/60 97 03/12/21 20:30 03/12/21 21:30 03/12/21 21:30 03/12/21 21:30 03/12/21 21:30 03/12/21 03/12/21 03/12/21 20:15 20:15 20:15 WBC 11.4 H RBC 3.17 L Hgb 9.7 L Hct 31.0 L MCV 97.8 H MCH 30.6 MCHC 31.3 L RDW Std Deviation 53.1 H RDW Coeff of Karl 15.4 H Plt Count 270 MPV 10.4 Immature Gran % (Auto) 0.300 Neut % (Auto) 92.0 H Lymph % (Auto) 4.3 L Thomas % (Auto) 3.1 Eos % (Auto) 0.0 Baso % (Auto) 0.3 Absolute Neuts (auto) 10.5 H Absolute Lymphs (auto) 0.49 L Nucleated RBC % 0.7 Differential Comment Specimen Type Sample Site pH Bicarbonate Actual Total CO2 Base Excess O2 Saturation ABG pCO2 ABG pO2 Franklin Test O2 Delivery Device Liter Flow Sodium 133 L Potassium 4.5 Chloride 91 L Carbon Dioxide 36.0 H Anion Gap 6 BUN 54 H Creatinine 5.10 H Estim Creat Clear Calc 13.86 Est GFR (MDRD) Af Amer 15 L Est GFR (MDRD) Non-Af 12 L BUN/Creatinine Ratio 10.6 Glucose 99 Lactic Acid 2.2 H* Calcium 8.4 L 03/12/21 03/12/21 03/12/21 16:38 05:10 04:54 WBC 10.4 RBC 2.90 L Hgb 8.9 L Hct 28.4 L MCV 97.9 H MCH 30.7 MCHC 31.3 L RDW Std Deviation 51.8 H RDW Coeff of Karl 14.8 H Plt Count 275 MPV 10.3 Immature Gran % (Auto) 0.300 Neut % (Auto) 84.7 H Lymph % (Auto) 4.5 L Thomas % (Auto) 10.4 H Eos % (Auto) 0.0 Baso % (Auto) 0.1 Absolute Neuts (auto) 8.8 H Absolute Lymphs (auto) 0.47 L Nucleated RBC % 0.2 Differential Comment SCANNED Specimen Type ART Sample Site R Radial pH 7.47 H Bicarbonate Actual 31.3 H Total CO2 33 Base Excess 8 H O2 Saturation 94 L ABG pCO2 43.0 ABG pO2 65 L Franklin Test Positive O2 Delivery Device Cannula Liter Flow 7.0 Sodium 131 L Potassium 4.3 Chloride 87 L Carbon Dioxide 37.0 H Anion Gap 7 BUN 39 H Creatinine 4.13 H Estim Creat Clear Calc 17.12 Est GFR (MDRD) Af Amer 19 L Est GFR (MDRD) Non-Af 16 L BUN/Creatinine Ratio 9.4 L Glucose 134 H Lactic Acid Calcium 8.3 L Assessment/Plan Rhonchi likely secondary to pneumonia Because of esrd on dialysis will avoid NSS 30 ML/KG bolus.NSS 250 ML BOLUS X 1. Clindamycin not started. Discussed with general surgeon. Because of risk of c- diff will rather order flagyl. Start vancomycin and aztreonam. Attestation Sepsis Attestation: Sepsis re-evaluation was performed
--- NOTE | 2021-03-12 22:03 | RAD_ITS ---
STUDY: X-RAY CHEST REASON FOR EXAM: Male, 65 years old. central line placement TECHNIQUE: Single AP portable view of the chest. COMPARISON: March 12, 2021 FINDINGS: 1. No change in moderate patchy consolidation of the bilateral lower lobes and small pleural effusions. 2. A few scattered interstitial opacities are seen in the bilateral upper lobes. 3. Interval appearance of a feeding tube terminating in the left upper quadrant presumably in the proximal stomach. 4. Interval appearance of a right IJ catheter terminating in the mid SVC 5. Normal heart size 6. Stable osseous structures. 7. Stable mediastinal contours There is no demonstrated abnormality of the visualized soft tissue structures of the upper abdomen. RAD/CXR for Line Placement IMPRESSION: No change in moderate patchy consolidation of the bilateral lower lobes and small pleural effusions. Electronically Signed: Odell Zee MD at 23:44 EDT , Service support ,
--- NOTE | 2021-03-12 22:12 | PCM.OPRPT ---
Report of Operation Date of Procedure: 03/12/21 Pre-Operative Diagnosis: For IV access, septic shock Post-Operative Diagnosis: Same Surgery/Procedure Performed:: Right IJ triple-lumen catheter Surgeon: Olamide Arreguin Type of Anesthesia: Local Estimated Blood Loss (mL): 10 cc Description of Procedure: Consent was obtained. the right neck was prepped and draped in usual sterile fashion. Sterile mask/gloves/gown was used. Anesthesia of 1% lidocaine was used. Ultrasound was used to visualize the right internal jugular. Local anesthesia was infiltrated at the site. The internal jugular was accessed. There was some difficulty due to motion with his breathing as well as smaller vessel size due to septic shock. The guidewire was threaded easily without difficulty. Dilator was threaded over the guidewire and removed using Seldinger's technique. Then the triple-lumen catheter was placed at 15 at the neck. All ports sun well. The catheter was sutured into place with 3-0 silk suture. Patient tolerated procedure well. Chest x-ray was ordered. And catheter was verified in correct position. Complications none
--- NOTE | 2021-03-12 22:20 | RAD_ITS ---
STUDY: X-RAY - ABDOMEN/PELVIS REASON FOR EXAM: Male, 65 years old. ng tube placement TECHNIQUE: Single AP view of the abdomen / pelvis. COMPARISON: March 12, 2021 at 10:55 AM FINDINGS: Reidentification of patchy infiltrates in the bilateral lung bases. The feeding tube is in the left upper quadrant presumably in the proximal stomach. The stomach gas bubble is obscured by the dilated small bowel loops. Reidentification of mild to moderate gaseous distention of multiple loops of small bowel either due to ileus or distal obstruction. Stable osseous structures including previously treated lumbar compression deformity. RAD/Abdomen Single View (Portable) IMPRESSION: 1. Reidentification of mild to moderate gaseous distention of multiple loops of small bowel either due to ileus or distal obstruction. Electronically Signed: Odell Zee MD at 23:42 EDT , Service support ,
[2021-03-12] MEDS: metroNIDAZOLE 500 MG/100 ML BAG 100 MG IV (23:58)
[2021-03-13] VITALS (46 sets, daily range): BP systolic 80–119; BP diastolic 50–89; PULSE 76–141; RESP 15–30; TEMP 35.2–36.7; O2SAT 92–100
[2021-03-13] MEDS: Lidocaine 4% 5 ML Ampul 2 ML INHALATION (00:03)
[2021-03-13 00:54] LABS: Reflex Lactate? Y
[2021-03-13 01:52] LABS: Lactic Acid 1.7 mmol/L (0.4-1.9)
[2021-03-13 05:14] LABS: Absolute Lymphocyte Count 0.34 X10^3/uL (0.83-4.51); Absolute Neutrophil Count 20.7 X10^3/uL (2.0-7.7); Basophil# 0.04 X10^3/uL; Basophil% 0.2 % (0-1); Eosinophil# 0.03 X10^3/uL; Eosinophils% 0.1 % (0-5); Hemoglobin 8.9 g/dL (13.0-16.5); Lymphocyte # 0.34 X10^3/ul (0.83-4.51); Lymphocyte % 1.6 % (19-41); Mean Corp Hgb Conc 31.8 g/dL (32-36); Mean Corpuscular Hgb 31.1 pg (27.0-32.0); Mean Corpuscular Volume 97.9 fL (80-94); Mean Platelet Vol. 10.3 fl (6.2-12.0); Monocyte% 2.3 % (0-10); NRBC Flagged by Analyzer 0.2 % (0-5); Neutrophil # 20.67 X10^3/uL (2.7-7.7); Neutrophil % 94.5 % (47-70); POSITIVE DIFFERENTIAL YES; POSITIVE MORPHOLOGY YES; Platelet Count 267 K/mm3 (150-450); RBC Distribution Width CV 15.6 % (11.6-14.6); RBC Distribution Width SD 54.3 fl (35.1-43.9); Red Blood Count 2.86 M/mm3 (4.6-6.2); White Blood Count 21.9 K/mm3 (4.4-11.0)
[2021-03-13 05:15] LABS: Differential Indicated SCAN CRITERIA MET
[2021-03-13] MEDS: Albuterol 2.5 MG/3 ML VIAL.NEB. INHALATION (05:24)
[2021-03-13 05:33] LABS: Anion Gap 10 (5-15); BUN 59 mg/dL (7-18); BUN/Creat Ratio 11.8 RATIO (10-20); Chloride 92 mmol/L (98-107); Creatinine, Serum 5.02 mg/dL (0.70-1.30); EST Glomerular Filtration Rate 12 mL/min (>60); Est Glom Filt Rate - Afr Amer 15 mL/min (>60); Estimated Creatinine Clearance 14.08 ml/min; Glucose 105 mg/dL (74-106); Potassium 4.9 mmol/L (3.5-5.1); Sodium Level 133 mmol/L (136-145)
[2021-03-13] MEDS: 0.9% Saline Lock 10 ML Syringe IV ×3 (05:56→21:30)
[2021-03-13 06:02] LABS: Anisocytosis RARE; Differential Comment SCANNED; Hypochromasia 2+; Microcytosis RARE; Polychromasia RARE
[2021-03-13] MEDS: metroNIDAZOLE 500 MG/100 ML BAG 100 MG IV ×3 (06:55→21:30)
[2021-03-13] MEDS: Ipratropium/Albuterol Sulfate 3 ML AMPUL.NEB INHALATION ×5 (07:11→23:05)
--- NOTE | 2021-03-13 07:31 | PCM.PN.CARD ---
Subjective Subjective Patient seen and noted. Events of yesterday reviewed. Objective Data Vital Signs: Vital Signs Temp Pulse Resp BP Pulse Ox 96.9 F L 90 21 H 108/79 100 03/13/21 04:30 03/13/21 07:12 03/13/21 07:12 03/13/21 07:00 03/13/21 07:12 Oxygen Flow Rate (L/min) 3 Oxygen Delivery Method Nasal Cannula Weight: 179 lb 10.828 oz Body Mass Index (BMI) 28.8 Intake & Output: Intake and Output for Last 24 Hours 03/11/21 03/12/21 03/13/21 23:59 23:59 23:59 Intake Total 240 / 240 1389.29 / 1423.04 1114.90 / 1114.90 Output Total 1300 / 1300 1350 / 1350 Balance -1060 / -1060 39.29 / 73.04 1114.90 / 1114.90 Lab / Micro Data Result Diagrams: 03/13/21 04:55 03/13/21 04:55 Labs: Laboratory Results - last 24 hr 03/12/21 20:15: WBC 11.4 H, RBC 3.17 L, Hgb 9.7 L, Hct 31.0 L, MCV 97.8 H, MCH 30.6, MCHC 31.3 L, RDW Std Deviation 53.1 H, RDW Coeff of Karl 15.4 H, Plt Count 270, MPV 10.4, Immature Gran % (Auto) 0.300, Neut % (Auto) 92.0 H, Lymph % (Auto) 4.3 L, [place] % (Auto) 3.1, Eos % (Auto) 0.0, Baso % (Auto) 0.3, Absolute Neuts (auto) 10.5 H, Absolute Lymphs (auto) 0.49 L, Nucleated RBC % 0.7, Differential Comment 03/12/21 20:15: Sodium 133 L, Potassium 4.5, Chloride 91 L, Carbon Dioxide 36.0 H, Anion Gap 6, BUN 54 H, Creatinine 5.10 H, Estim Creat Clear Calc 13.86, Est GFR (MDRD) Af Amer 15 L, Est GFR (MDRD) Non-Af 12 L, BUN/Creatinine Ratio 10.6, Glucose 99, Calcium 8.4 L 03/12/21 20:15: Lactic Acid 2.2 H* 03/13/21 01:20: Lactic Acid 1.7 03/13/21 04:55: WBC 21.9 H, RBC 2.86 L, Hgb 8.9 L, Hct 28.0 L, MCV 97.9 H, MCH 31.1, MCHC 31.8 L, RDW Std Deviation 54.3 H, RDW Coeff of Karl 15.6 H, Plt Count 267, MPV 10.3, Immature Gran % (Auto) 1.300 H, Neut % (Auto) 94.5 H, Lymph % (Auto) 1.6 L, [place] % (Auto) 2.3, Eos % (Auto) 0.1, Baso % (Auto) 0.2, Absolute Neuts (auto) 20.7 H, Absolute Lymphs (auto) 0.34 L, Nucleated RBC % 0.2, Differential Comment SCANNED, Polychromasia RARE, Hypochromasia 2+, Anisocytosis RARE, Microcytosis RARE 03/13/21 04:55: Sodium 133 L, Potassium 4.9, Chloride 92 L, Carbon Dioxide 31.0, Anion Gap 10, BUN 59 H, Creatinine 5.02 H, Estim Creat Clear Calc 14.08, Est GFR (MDRD) Af Amer 15 L, Est GFR (MDRD) Non-Af 12 L, BUN/Creatinine Ratio 11.8, Glucose 105, Calcium 8.0 L ABG Data ABG results: ABG 03/12/21 16:38 Specimen Type ART Sample Site R Radial pH 7.47 H Bicarbonate Actual 31.3 H Total CO2 33 Base Excess 8 H O2 Saturation 94 L ABG pCO2 43.0 ABG pO2 65 L [place] Test Positive O2 Delivery Device Cannula Liter Flow 7.0 Cardiology Labs/Tests 03/12/21 16:38: pH 7.47 H, Bicarbonate Actual 31.3 H, Base Excess 8 H, O2 Saturation 94 L, ABG pCO2 43.0, ABG pO2 65 L, [place] Test Positive 03/12/21 20:15: WBC 11.4 H, RBC 3.17 L, Hgb 9.7 L, Hct 31.0 L, MCV 97.8 H, MCH 30.6, MCHC 31.3 L, Plt Count 270, MPV 10.4, Immature Gran % (Auto) 0.300, Neut % (Auto) 92.0 H, Lymph % (Auto) 4.3 L, [place] % (Auto) 3.1, Eos % (Auto) 0.0, Baso % (Auto) 0.3, Absolute Neuts (auto) 10.5 H, Nucleated RBC % 0.7 03/12/21 20:15: Sodium 133 L, Potassium 4.5, Chloride 91 L, Carbon Dioxide 36.0 H, Anion Gap 6, BUN 54 H, Creatinine 5.10 H, Est GFR (MDRD) Af Amer 15 L, Est GFR (MDRD) Non-Af 12 L, BUN/Creatinine Ratio 10.6, Glucose 99, Calcium 8.4 L 03/12/21 20:15: Lactic Acid 2.2 H* 03/13/21 01:20: Lactic Acid 1.7 03/13/21 04:55: WBC 21.9 H, RBC 2.86 L, Hgb 8.9 L, Hct 28.0 L, MCV 97.9 H, MCH 31.1, MCHC 31.8 L, Plt Count 267, MPV 10.3, Immature Gran % (Auto) 1.300 H, Neut % (Auto) 94.5 H, Lymph % (Auto) 1.6 L, [place] % (Auto) 2.3, Eos % (Auto) 0.1, Baso % (Auto) 0.2, Absolute Neuts (auto) 20.7 H, Nucleated RBC % 0.2 03/13/21 04:55: Sodium 133 L, Potassium 4.9, Chloride 92 L, Carbon Dioxide 31.0, Anion Gap 10, BUN 59 H, Creatinine 5.02 H, Est GFR (MDRD) Af Amer 15 L, Est GFR (MDRD) Non-Af 12 L, BUN/Creatinine Ratio 11.8, Glucose 105, Calcium 8.0 L Rhythm: EKG: ECHO: Stress Test: Cardiac Cath: PCI: CT Surgery: Holter monitor: EPS: PPM: CXR: Chest CT Scan: Radiography Diagnostic Testing: Radiology Impression KUB X-Ray 03/12/21 11:00 IMPRESSION: Small bowel obstruction. Nasogastric tube visualized with tip in the stomach. Electronically Signed: Adrian Anderson MD at 11:24 EDT Tel , Service support , Chest X-Ray 03/12/21 17:00 IMPRESSION: 1. Interval appearance of moderate patchy consolidation in the bilateral lower lobes. Chronic scarring and volume loss in the left lung base. Aspiration versus community-acquired pneumonia. Cystic emphysematous changes are present. Electronically Signed: Odell Zee MD at 19:06 EDT , Service support , Chest X-Ray 03/12/21 22:03 IMPRESSION: No change in moderate patchy consolidation of the bilateral lower lobes and small pleural effusions. Electronically Signed: Odell Zee MD at 23:44 EDT , Service support , KUB X-Ray 03/12/21 22:20 IMPRESSION: 1. Reidentification of mild to moderate gaseous distention of multiple loops of small bowel either due to ileus or distal obstruction. Electronically Signed: Odell Zee MD at 23:42 EDT , Service support , Physical Exam Const alert, oriented x3 and no apparent distress General Appearance: cooperative HEENT hearing grossly normal bilaterally Head and Scalp: atraumatic Eyes EOMs intact bilaterally Neck General: normal visual inspection Chest inspection of chest normal and palpation of chest normal Resp normal respiratory effort Auscultation: clear to auscultation bilaterally Cardio regular rate, regular rhythm, S1 normal heart sound and S2 normal heart sound Jugular Venous Distention: JVD GI normal to inspection, nondistended, normoactive bowel sounds Extremity normal capillary refill and no pedal edema Peripheral Pulses: Yes pulses 2+ throughout and femoral pulses present Skin no rashes or lesions noted Neuro oriented x3 and CN's II-XII intact bilaterally Psych Appearance: grossly normal and appropriate Assessment & Plan Assessment/Plan (1) Elevated troponin: PLAN: Moderately severe lesion in the left circumflex artery for which he underwent angioplasty and stenting.The patient underwent a cardiac catheterization which demonstrated moderately severe lesion in the left circumflex artery. The plan will be to continue the current medications with no changes (2) Alcoholic cardiomyopathy: PLAN: He has a history of a cardiomyopathy thought secondary to alcohol intoxication. His echocardiogram demonstrated moderately reduced left ventricular systolic function. Alcohol use restraints has been advocated. (3) Paroxysmal atrial fibrillation: PLAN: He is remaining in sinus rhythm at the moment.He will continue medical therapy and follow-up as deemed appropriate. He has not had any atrial fibrillation but has had some EKG changes with deep T wave inversions. Electrolyte abnormalities are being corrected. (4) Hyperlipidemia: QUALIFIERS: Hyperlipidemia type: unspecified Qualified Code(s): E78.5 - Hyperlipidemia, unspecified PLAN: He will continue medical management. (5) Benign hypertension: PLAN: His blood pressure will be followed and his medications can be adjusted based upon his blood pressure response. (6) ESRD (end stage renal disease) on dialysis: PLAN: He is going to continue under nephrology for his dialysis therapy. (7) SBO (small bowel obstruction): PLAN: This is being managed as per general surgery and hospitalist and intensive care unit. May need to adjust some of his medications to be given intravenously.
--- NOTE | 2021-03-13 08:22 | RAD_ITS ---
EXAM: XR ABDOMEN, 1 VIEW : 1955 CLINICAL INDICATION: sbo -- portable TECHNIQUE: Frontal supine view of the abdomen/pelvis. This report was created using [employer] report generation technology. COMPARISON: 03/12/2021 FINDINGS: LOWER THORAX: No acute pathology. GASTROINTESTINAL TRACT: Unremarkable. Non-obstructive. No bowel or stomach distention. ORGANS: Unremarkable as visualized. No organomegaly. No abnormal calcifications. BONES/JOINTS: No acute pathology. SOFT TISSUES: No acute pathology. TUBES, LINES AND DEVICES: There are dilated gas-filled loops of small bowel compatible with mechanical obstruction. Nasogastric tube is in stable position. RAD/Abdomen Single View (Portable) IMPRESSION: No change in the bowel gas pattern from the previous exam. There are dilated gas-filled loops of small bowel compatible with a mechanical bowel obstruction. at 0915 Reported and signed by: Bi Marley MD Electronically Signed: Bi Marley MD at 9:14 EDT Tel , Service support ,
--- NOTE | 2021-03-13 08:27 | PN.SURG_ITS ---
Subjective Subjective Patient was transferred to the ICU due to hypotension yesterday evening. Patient did have NG replaced and has kept in overnight drain about 1300cc. Patient's chest x-ray shows possible aspiration, white blood cell count is up to 21?patient started on IV antibiotics last night. Objective Data Objective Data Vital Signs: Vital Signs Temp Pulse Resp BP Pulse Ox 96.9 F L 90 21 H 108/79 100 03/13/21 04:30 03/13/21 07:12 03/13/21 07:12 03/13/21 07:00 03/13/21 07:12 Oxygen Flow Rate (L/min) 3 Oxygen Delivery Method Nasal Cannula Weight: 179 lb 10.828 oz Body Mass Index (BMI) 28.8 Intake & Output: Intake and Output for Last 24 Hours 03/11/21 03/12/21 03/13/21 23:59 23:59 23:59 Intake Total 240 / 240 1389.29 / 1423.04 1761.95 / 1761.95 Output Total 1300 / 1300 1350 / 1350 Balance -1060 / -1060 39.29 / 73.04 1761.95 / 1761.95 Lab / Micro Data Result Diagrams: 03/13/21 04:55 03/13/21 04:55 Labs: Laboratory Results - last 24 hr 03/12/21 20:15: WBC 11.4 H, RBC 3.17 L, Hgb 9.7 L, Hct 31.0 L, MCV 97.8 H, MCH 30.6, MCHC 31.3 L, RDW Std Deviation 53.1 H, RDW Coeff of Karl 15.4 H, Plt Count 270, MPV 10.4, Immature Gran % (Auto) 0.300, Neut % (Auto) 92.0 H, Lymph % (Auto) 4.3 L, [place] % (Auto) 3.1, Eos % (Auto) 0.0, Baso % (Auto) 0.3, Absolute Neuts (auto) 10.5 H, Absolute Lymphs (auto) 0.49 L, Nucleated RBC % 0.7, Diffe rential Comment 03/12/21 20:15: Sodium 133 L, Potassium 4.5, Chloride 91 L, Carbon Dioxide 36.0 H, Anion Gap 6, BUN 54 H, Creatinine 5.10 H, Estim Creat Clear Calc 13.86, Est GFR (MDRD) Af Amer 15 L, Est GFR (MDRD) Non-Af 12 L, BUN/Creatinine Ratio 10.6, Glucose 99, Calcium 8.4 L 03/12/21 20:15: Lactic Acid 2.2 H* 03/13/21 01:20: Lactic Acid 1.7 03/13/21 04:55: WBC 21.9 H, RBC 2.86 L, Hgb 8.9 L, Hct 28.0 L, MCV 97.9 H, MCH 31.1, MCHC 31.8 L, RDW Std Deviation 54.3 H, RDW Coeff of Karl 15.6 H, Plt Count 267, MPV 10.3, Immature Gran % (Auto) 1.300 H, Neut % (Auto) 94.5 H, Lymph % (Auto) 1.6 L, [place] % (Auto) 2.3, Eos % (Auto) 0.1, Baso % (Auto) 0.2, Absolute Neuts (auto) 20.7 H, Absolute Lymphs (auto) 0.34 L, Nucleated RBC % 0.2, Differential Comment SCANNED, Polychromasia RARE, Hypochromasia 2+, Anisocytosis RARE, Microcytosis RARE 03/13/21 04:55: Sodium 133 L, Potassium 4.9, Chloride 92 L, Carbon Dioxide 31.0, Anion Gap 10, BUN 59 H, Creatinine 5.02 H, Estim Creat Clear Calc 14.08, Est GFR (MDRD) Af Amer 15 L, Est GFR (MDRD) Non-Af 12 L, BUN/Creatinine Ratio 11.8, Glucose 105, Calcium 8.0 L Micro: Microbiology 03/09/21 18:30 Sputum, Expectorated/Coughed Gram Stain - Final 03/09/21 18:30 Sputum, Expectorated/Coughed Respiratory Culture - Final Stenotrophomonas maltophilia 03/08/21 06:53 Mucosa - Nose Respiratory Panel (PCR) - Final 03/08/21 03:27 Nasal Secretion SARS-CoV-2 Antigen (Rapid) - Final ABG Data ABG results: ABG 03/12/21 16:38 Specimen Type ART Sample Site R Radial pH 7.47 H Bicarbonate Actual 31.3 H Total CO2 33 Base Excess 8 H O2 Saturation 94 L ABG pCO2 43.0 ABG pO2 65 L [place] Test Positive O2 Delivery Device Cannula Liter Flow 7.0 Radiography Diagnostic Testing: Radiology Impression KUB X-Ray 03/12/21 11:00 IMPRESSION: Small bowel obstruction. Nasogastric tube visualized with tip in the stomach. Electronically Signed: Adrian Anderson MD at 11:24 EDT Tel , Service support , Chest X-Ray 03/12/21 17:00 IMPRESSION: 1. Interval appearance of moderate patchy consolidation in the bilateral lower lobes. Chronic scarring and volume loss in the left lung base. Aspiration versus community-acquired pneumonia. Cystic emphysematous changes are present. Electronically Signed: Odell Zee MD at 19:06 EDT , Service support , Chest X-Ray 03/12/21 22:03 IMPRESSION: No change in moderate patchy consolidation of the bilateral lower lobes and small pleural effusions. Electronically Signed: Odell Zee MD at 23:44 EDT , Service support , KUB X-Ray 03/12/21 22:20 IMPRESSION: 1. Reidentification of mild to moderate gaseous distention of multiple loops of small bowel either due to ileus or distal obstruction. Electronically Signed: Odell Zee MD at 23:42 EDT , Service support , Physical Exam Narrative Abdomen: Soft, nontender, mild distention, no peritoneal signs. Right groin tender to even light palpation patient states has been like that all of his life. No obvious incarcerated hernia on exam Assessment & Plan Assessment/Plan (1) SBO (small bowel obstruction): (2) History of coronary artery stent placement: PLAN: Continue NG/n.p.o. okay for meds in occasional ice chips. Plan to continue to suction today to see how much we get out of the NG likely plan for tomorrow for p.o. contrast study. Leukocytosis?likely due to aspiration pneumonia patient on antibiotics per primary. Olamide Arreguin M.D. Pager: [phone] [facility] [address] [place] [address], [facility], [address] [place] [id number] Office: [phone] Charges/Coding Visit Charges Inpatient E&M: 58484 Subs Hosp L3
[2021-03-13] MEDS: Aspirin E.C. 81 MG Tablet PO (09:47)
[2021-03-13] MEDS: Sertraline 100 MG Tablet PO (09:48)
[2021-03-13] MEDS: Gabapentin 100 MG Capsule PO ×2 (09:48→21:38)
[2021-03-13] MEDS: Tamsulosin HCl 0.4 MG Capsule PO (09:48)
[2021-03-13] MEDS: Clopidogrel Bisulfate 75 MG Tablet PO (09:48)
[2021-03-13] MEDS: Docusate Sodium 100 MG Capsule PO (09:48)
[2021-03-13] MEDS: levoFLOXacin 500 MG Tablet PO (09:48)
[2021-03-13] MEDS: Loratadine 10 MG Tablet PO (09:48)
[2021-03-13] MEDS: Enoxaparin 30 MG/0.3 ML Syringe SC (09:49)
--- NOTE | 2021-03-13 10:07 | EKG12_ITS ---
Test Reason : AM EKG Blood Pressure : / mmHG Vent. Rate : 123 BPM Atrial Rate : 123 BPM P-R Int : 148 ms QRS Dur : 120 ms QT Int : 318 ms P-R-T Axes : 075 047 232 degrees QTc Int : [address] & T wave abnormality, consider inferior ischemia ST & T wave abnormality, consider anterolateral ischemia Abnormal ECG Confirmed by MARIA DOLORES CERVANTES, ALEJA ([id number]), film or videotape editor SEAN WEBB ([id number]) on 03/15/2021 9:16:14 AM Referred By: JULISA Confirmed By:ALEJA WHITTEN MD
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
--- NOTE | 2021-03-13 10:49 | CASEMGMT ---
During rounds this am RN said patient has lease papers he is supposed to sign. SW met with patient, introduced self and role at [facility]. SW told him that he will not be able to get any visitors while in ICU. SW told him SW would be happy to go to the main entrance, meet the person and bring the papers back for him. He said that would be fine. MJ told RN to call SW if main entrance calls regarding patient and SW will go get the papers. Francie BROTHERS
--- NOTE | 2021-03-13 13:04 | PCM.RX.CS ---
Consult Pharmacy has been consulted to manage selected antiobiotic: Vancomycin Type of Consult: New start Suspected Infection: Sepsis Labs: Sodium 133 mmol/L (136-145) L 03/13/21 04:55 Potassium 4.9 mmol/L (3.5-5.1) 03/13/21 04:55 Chloride 92 mmol/L (98-107) L 03/13/21 04:55 Carbon Dioxide 31.0 mmol/L (21.0-32.0) 03/13/21 04:55 Anion Gap 10 (5-15) 03/13/21 04:55 BUN 59 mg/dL (7-18) H 03/13/21 04:55 Creatinine 5.02 mg/dL (0.70-1.30) H 03/13/21 04:55 Est GFR (MDRD) Af Amer 15 mL/min (>60) L 03/13/21 04:55 Est GFR (MDRD) Non-Af 12 mL/min (>60) L 03/13/21 04:55 BUN/Creatinine Ratio 11.8 RATIO (10-20) 03/13/21 04:55 Glucose 105 mg/dL (74-106) 03/13/21 04:55 Microbiology: Microbiology 03/09/21 18:30 Sputum, Expectorated/Coughed Gram Stain - Final 03/09/21 18:30 Sputum, Expectorated/Coughed Respiratory Culture - Final Stenotrophomonas maltophilia 03/08/21 06:53 Mucosa - Nose Respiratory Panel (PCR) - Final 03/08/21 03:27 Nasal Secretion SARS-CoV-2 Antigen (Rapid) - Final Goal Trough: 15-20 mcg/mL Pharmacy Plan for Drug Dosing: NEW START IV VANCOMYCIN Consulting Physician: Adelia Indication: Sepsis Goal Trough: 15-20 SrCr: 5.10 (pt is on a , , Fri Dialysis schedule) CrCl: 14mls/min Comments: pt received a 2000mg x1 dose on 03/12/21 at 2236 Vancomcyin Dose: pt to receive a 500mg x1 dose on 03/13/21 after dialysis. Pending Level: 03/15/21 at 0600 (pre dialysis level) Pharmacy Service will continue to monitor and adjust dosing as required. Follow-Up Labs: Trough Vancomycin - 03/15/21 at 0600 (random level)
--- NOTE | 2021-03-13 14:02 | PCM.PN.REN ---
Subjective Subjective seen on dialysis, on pressors, transferred to ICU. NGT to suction with abdominal pain. C/O thirst. Denies CP, SOB. Edema improved with dialysis. Objective Data Objective Data Vital Signs: Vital Signs Temp Pulse Resp BP Pulse Ox 97.2 F L 101 H 20 H 99/64 99 03/13/21 12:00 03/13/21 12:00 03/13/21 12:00 03/13/21 12:00 03/13/21 12:00 Oxygen Flow Rate (L/min) 2 Oxygen Delivery Method Nasal Cannula Weight: 81.5 kg Body Mass Index (BMI) 28.8 Intake & Output: Intake and Output for Last 24 Hours 03/11/21 03/12/21 03/13/21 23:59 23:59 23:59 Intake Total 240 / 240 1389.29 / 1423.04 2401.90 / 2401.90 Output Total 1300 / 1300 1350 / 1350 350 / 350 Balance -1060 / -1060 39.29 / 73.04 2051.90 / 2051.90 Lab / Micro Data Result Diagrams: 03/13/21 04:55 03/13/21 04:55 Labs: Laboratory Results - last 24 hr 03/12/21 20:15: WBC 11.4 H, RBC 3.17 L, Hgb 9.7 L, Hct 31.0 L, MCV 97.8 H, MCH 30.6, MCHC 31.3 L, RDW Std Deviation 53.1 H, RDW Coeff of Karl 15.4 H, Plt Count 270, MPV 10.4, Immature Gran % (Auto) 0.300, Neut % (Auto) 92.0 H, Lymph % (Auto) 4.3 L, [place] % (Auto) 3.1, Eos % (Auto) 0.0, Baso % (Auto) 0.3, Absolute Neuts (auto) 10.5 H, Absolute Lymphs (auto) 0.49 L, Nucleated RBC % 0.7, Differential Comment 03/12/21 20:15: Sodium 133 L, Potassium 4.5, Chloride 91 L, Carbon Dioxide 36.0 H, Anion Gap 6, BUN 54 H, Creatinine 5.10 H, Estim Creat Clear Calc 13.86, Est GFR (MDRD) Af Amer 15 L, Est GFR (MDRD) Non-Af 12 L, BUN/Creatinine Ratio 10.6, Glucose 99, Calcium 8.4 L 03/12/21 20:15: Lactic Acid 2.2 H* 03/13/21 01:20: Lactic Acid 1.7 03/13/21 04:55: WBC 21.9 H, RBC 2.86 L, Hgb 8.9 L, Hct 28.0 L, MCV 97.9 H, MCH 31.1, MCHC 31.8 L, RDW Std Deviation 54.3 H, RDW Coeff of Karl 15.6 H, Plt Count 267, MPV 10.3, Immature Gran % (Auto) 1.300 H, Neut % (Auto) 94.5 H, Lymph % (Auto) 1.6 L, [place] % (Auto) 2.3, Eos % (Auto) 0.1, Baso % (Auto) 0.2, Absolute Neuts (auto) 20.7 H, Absolute Lymphs (auto) 0.34 L, Nucleated RBC % 0.2, Differential Comment SCANNED, Polychromasia RARE, Hypochromasia 2+, Anisocytosis RARE, Microcytosis RARE 03/13/21 04:55: Sodium 133 L, Potassium 4.9, Chloride 92 L, Carbon Dioxide 31.0, Anion Gap 10, BUN 59 H, Creatinine 5.02 H, Estim Creat Clear Calc 14.08, Est GFR (MDRD) Af Amer 15 L, Est GFR (MDRD) Non-Af 12 L, BUN/Creatinine Ratio 11.8, Glucose 105, Calcium 8.0 L Micro: Microbiology 03/09/21 18:30 Sputum, Expectorated/Coughed Gram Stain - Final 03/09/21 18:30 Sputum, Expectorated/Coughed Respiratory Culture - Final Stenotrophomonas maltophilia 03/08/21 06:53 Mucosa - Nose Respiratory Panel (PCR) - Final 03/08/21 03:27 Nasal Secretion SARS-CoV-2 Antigen (Rapid) - Final ABG Data ABG results: ABG 03/12/21 16:38 Specimen Type ART Sample Site R Radial pH 7.47 H Bicarbonate Actual 31.3 H Total CO2 33 Base Excess 8 H O2 Saturation 94 L ABG pCO2 43.0 ABG pO2 65 L [place] Test Positive O2 Delivery Device Cannula Liter Flow 7.0 Radiography Diagnostic Testing: Radiology Impression Chest X-Ray 03/12/21 17:00 IMPRESSION: 1. Interval appearance of moderate patchy consolidation in the bilateral lower lobes. Chronic scarring and volume loss in the left lung base. Aspiration versus community-acquired pneumonia. Cystic emphysematous changes are present. Electronically Signed: Odell Zee MD at 19:06 EDT , Service support , Chest X-Ray 03/12/21 22:03 IMPRESSION: No change in moderate patchy consolidation of the bilateral lower lobes and small pleural effusions. Electronically Signed: Odell Zee MD at 23:44 EDT , Service support , KUB X-Ray 03/12/21 22:20 IMPRESSION: 1. Reidentification of mild to moderate gaseous distention of multiple loops of small bowel either due to ileus or distal obstruction. Electronically Signed: Odell Zee MD at 23:42 EDT , Service support , KUB X-Ray 03/13/21 08:22 IMPRESSION: No change in the bowel gas pattern from the previous exam. There are dilated gas-filled loops of small bowel compatible with a mechanical bowel obstruction. at 0915 Reported and signed by: Bi Marley MD Electronically Signed: Bi Marley MD at 9:14 EDT Tel , Service support , Physical Exam Const alert and oriented x3 Resp Auscultation: rhonchi and wheezes Cardio Cardio Narrative: tachycardic Rhythm: abnormal rhythm GI GI Narrative: distended, NGT to suction Palpation: tender Extremity General Extremity: edema bilateral (improved since admission) lower extremity Neuro Sensorium / Orientation: awake and alert Psych cooperative Assessment & Plan Assessment/Plan (1) End-stage renal disease on hemodialysis: PLAN: dialysis today and TTS schedule (2) Acute exacerbation of chronic obstructive pulmonary disease: PLAN: continues to smoke (3) Chest pain: QUALIFIERS: Chest pain type: unspecified Qualified Code(s): R07.9 - Chest pain, unspecified PLAN: s/p heart cath with PCI (4) Benign hypertension: PLAN: hypotension on pressors. Pt runs low BP chronically (5) Alcoholic cardiomyopathy: (6) Nicotine dependence: QUALIFIERS: Nicotine product type: cigarettes Substance use status: uncomplicated Qualified Code(s): F17.210 - Nicotine dependence, cigarettes, uncomplicated PLAN: continues to smoke (7) Chronic obstructive pulmonary disease: QUALIFIERS: COPD type: chronic bronchitis Chronic bronchitis type: mucopurulent Qualified Code(s): J41.1 - Mucopurulent chronic bronchitis (8) SBO (small bowel obstruction): PLAN: GS following NGT placed. KERI sevelamer
--- NOTE | 2021-03-13 14:05 | CASEMGMT ---
MJ received a call from [employer] at the main entrance. The gentleman is here to drop off papers for patient to sign. SW went to main entrance and spoke with Amor Weber from [facility]. He highlighted all of the areas that needed signed and dated. He also had a packet that patient is to keep. MJ said SW will bring the papers back down in an envelope. He said he will pick them up later. MJ took the paperwork to patient and explained he needs to sign where highlighted. He said he does not have his glasses. Lexus the superintendent oil field drilling offered to help patient with this. MJ told him to notify RN when he is done with papers and SW will take them back to the main entrance. Francie Sexton [employer]
--- NOTE | 2021-03-13 14:46 | CASEMGMT ---
SW received a call from [employer]. media supervisor was trying to help patient with documents by reading through them with him since he does not have his glasses. Patient is arguing with the nurse about what the papers say. She stopped doing the documents with patient. MJ called Amor Weber from [facility] as he is the one that dropped off the papers. SW left him a voice mail requesting a return call. MJ will see if a phone conversation can be arranged between the 2 of them so patient can ask questions. Francie Sexton CAR PINCHERCatalina BROTHERS
[2021-03-13 15:28] LABS: M R Staph aureus DNA By PCR Negative (Negative); Probe Check PASS; Specimen Processing Control PASS
[2021-03-13] MEDS: Vancomycin IV 500 MG/100 ML BAG 100 MG IV (16:09)
--- NOTE | 2021-03-13 16:26 | PCM.PN.HOSP ---
Subjective Subjective Wants to eat and to get the NGT out. Objective Data Objective Data Vital Signs: Vital Signs Temp Pulse Resp BP Pulse Ox 36.2 C L 139 H 21 H 87/60 L 94 03/13/21 12:00 03/13/21 15:41 03/13/21 14:00 03/13/21 14:15 03/13/21 14:00 Oxygen Flow Rate (L/min) 2 Oxygen Delivery Method Nasal Cannula Weight: 81.5 kg Body Mass Index (BMI) 28.8 Intake & Output: Intake and Output for Last 24 Hours 03/11/21 03/12/21 03/13/21 23:59 23:59 23:59 Intake Total 240 / 240 1389.29 / 1423.04 2650.80 / 2650.80 Output Total 1300 / 1300 1350 / 1350 350 / 350 Balance -1060 / -1060 39.29 / 73.04 2300.80 / 2300.80 Lab / Micro Data Result Diagrams: 03/13/21 04:55 03/13/21 04:55 Labs: Laboratory Results - last 24 hr 03/12/21 20:15: WBC 11.4 H, RBC 3.17 L, Hgb 9.7 L, Hct 31.0 L, MCV 97.8 H, MCH 30.6, MCHC 31.3 L, RDW Std Deviation 53.1 H, RDW Coeff of Karl 15.4 H, Plt Count 270, MPV 10.4, Immature Gran % (Auto) 0.300, Neut % (Auto) 92.0 H, Lymph % (Auto) 4.3 L, Redwood % (Auto) 3.1, Eos % (Auto) 0.0, Baso % (Auto) 0.3, Absolute Neuts (auto) 10.5 H, Absolute Lymphs (auto) 0.49 L, Nucleated RBC % 0.7, Differential Comment 03/12/21 20:15: Sodium 133 L, Potassium 4.5, Chloride 91 L, Carbon Dioxide 36.0 H, Anion Gap 6, BUN 54 H, Creatinine 5.10 H, Estim Creat Clear Calc 13.86, Est GFR (MDRD) Af Amer 15 L, Est GFR (MDRD) Non-Af 12 L, BUN/Creatinine Ratio 10.6, Glucose 99, Calcium 8.4 L 03/12/21 20:15: Lactic Acid 2.2 H* 03/13/21 01:20: Lactic Acid 1.7 03/13/21 04:55: WBC 21.9 H, RBC 2.86 L, Hgb 8.9 L, Hct 28.0 L, MCV 97.9 H, MCH 31.1, MCHC 31.8 L, RDW Std Deviation 54.3 H, RDW Coeff of Karl 15.6 H, Plt Count 267, MPV 10.3, Immature Gran % (Auto) 1.300 H, Neut % (Auto) 94.5 H, Lymph % (Auto) 1.6 L, Redwood % (Auto) 2.3, Eos % (Auto) 0.1, Baso % (Auto) 0.2, Absolute Neuts (auto) 20.7 H, Absolute Lymphs (auto) 0.34 L, Nucleated RBC % 0.2, Differential Comment SCANNED, Polychromasia RARE, Hypochromasia 2+, Anisocytosis RARE, Microcytosis RARE 03/13/21 04:55: Sodium 133 L, Potassium 4.9, Chloride 92 L, Carbon Dioxide 31.0, Anion Gap 10, BUN 59 H, Creatinine 5.02 H, Estim Creat Clear Calc 14.08, Est GFR (MDRD) Af Amer 15 L, Est GFR (MDRD) Non-Af 12 L, BUN/Creatinine Ratio 11.8, Glucose 105, Calcium 8.0 L 03/13/21 08:25: MRSA (PCR) Negative Micro: Microbiology 03/09/21 18:30 Sputum, Expectorated/Coughed Gram Stain - Final 03/09/21 18:30 Sputum, Expectorated/Coughed Respiratory Culture - Final Stenotrophomonas maltophilia 03/08/21 06:53 Mucosa - Nose Respiratory Panel (PCR) - Final 03/08/21 03:27 Nasal Secretion SARS-CoV-2 Antigen (Rapid) - Final ABG Data ABG results: ABG 03/12/21 16:38 Specimen Type ART Sample Site R Radial pH 7.47 H Bicarbonate Actual 31.3 H Total CO2 33 Base Excess 8 H O2 Saturation 94 L ABG pCO2 43.0 ABG pO2 65 L Franklin Test Positive O2 Delivery Device Cannula Liter Flow 7.0 Radiography Diagnostic Testing: Radiology Impression Chest X-Ray 03/12/21 17:00 IMPRESSION: 1. Interval appearance of moderate patchy consolidation in the bilateral lower lobes. Chronic scarring and volume loss in the left lung base. Aspiration versus community-acquired pneumonia. Cystic emphysematous changes are present. Electronically Signed: Odell Zee MD at 19:06 EDT , Service support , Chest X-Ray 03/12/21 22:03 IMPRESSION: No change in moderate patchy consolidation of the bilateral lower lobes and small pleural effusions. Electronically Signed: Odell Zee MD at 23:44 EDT , Service support , KUB X-Ray 03/12/21 22:20 IMPRESSION: 1. Reidentification of mild to moderate gaseous distention of multiple loops of small bowel either due to ileus or distal obstruction. Electronically Signed: Odell Zee MD at 23:42 EDT , Service support , KUB X-Ray 03/13/21 08:22 IMPRESSION: No change in the bowel gas pattern from the previous exam. There are dilated gas-filled loops of small bowel compatible with a mechanical bowel obstruction. at 0915 Reported and signed by: Bi Marley MD Electronically Signed: Bi Marley MD at 9:14 EDT Tel , Service support , Physical Exam Const alert Constitutional Narrative: NG in place. Appears older than stated age. Resp normal respiratory effort, no retractions, no use of accessory muscles and clear to auscultation bilaterally Cardio regular rate, regular rhythm, S1 normal heart sound and S2 normal heart sound GI GI Narrative: distended. hypoactive BS Extremity normal to inspection Assessment & Plan Assessment/Plan (1) Septic shock: (2) SBO (small bowel obstruction): (3) History of coronary artery stent placement: PLAN: 1. Septic shock 2/2 stenotrophomonas pneumonia weaned off norepinephrine. 2. Stenotrophomonas pneumonia on LVQ QOD 3. SBO NGT to suction GS following 4. NSTEMI s/p PCI to left circ continue ASA, clopidogrel, HIS 5. ESRD on HD TTSa nephrology following 6. VTE prophylaxis: LMWH Charges/Coding Visit Charges Inpatient E&M: 11129 Subs Hosp L2
--- NOTE | 2021-03-13 16:45 | DIALYSIS ---
HD x 3.25 hours complete. Unable to remove fluid d/t bp and heart rate. Dr. Perez is aware. Used left arm fistula. [place] removed post tx and pressure applied x 15 minutes. Hemostasis achieved. Fresh gauze and tape applied. Report was given to TEZ Turner.
[2021-03-13 17:16] LABS: Phosphorus 3.4 mg/dL (2.5-4.9)
[2021-03-13] MEDS: oxyCODONE 5 MG Tablet PO (21:37)
[2021-03-13] MEDS: Docusate Sodium 100 MG/10 ML UDC GT (21:38)
[2021-03-13] MEDS: hydrOXYzine PAM 25 MG Capsule 50 MG PO (21:39)
[2021-03-13] MEDS: Atorvastatin Calcium 40 MG Tablet PO (21:42)
[2021-03-13] MEDS: Amiodarone 360 MG in Dextrose 5% Viaflo Bag 192.8 ML 33.3 MG CONT INF (22:15)
[2021-03-14] VITALS (32 sets, daily range): BP systolic 88–116; BP diastolic 52–79; PULSE 111–140; RESP 16–32; TEMP 36.2–37.1; O2SAT 92–100
[2021-03-14] MEDS: CHLORHEXIDINE GLUC 2% CLOTH 1 EACH TOWELETTE TOPICAL
[2021-03-14 04:08] LABS: Absolute Lymphocyte Count 0.14 X10^3/uL (0.83-4.51); Absolute Neutrophil Count 15.6 X10^3/uL (2.0-7.7); Basophil# 0.04 X10^3/uL; Basophil% 0.2 % (0-1); Differential Indicated SCAN CRITERIA MET; Hematocrit 24.2 % (40-54); Hemoglobin 7.6 g/dL (13.0-16.5); Lymphocyte # 0.14 X10^3/ul (0.83-4.51); Lymphocyte % 0.8 % (19-41); Mean Corp Hgb Conc 31.4 g/dL (32-36); Mean Corpuscular Hgb 30.8 pg (27.0-32.0); Mean Platelet Vol. 9.9 fl (6.2-12.0); Monocyte# 0.58 X10^3/uL; Monocyte% 3.4 % (0-10); NRBC Flagged by Analyzer 0.1 % (0-5); Neutrophil # 15.61 X10^3/uL (2.7-7.7); Neutrophil % 92.6 % (47-70); POSITIVE DIFFERENTIAL YES; POSITIVE MORPHOLOGY YES; Platelet Count 195 K/mm3 (150-450); RBC Distribution Width CV 15.7 % (11.6-14.6); RBC Distribution Width SD 54.9 fl (35.1-43.9); Red Blood Count 2.47 M/mm3 (4.6-6.2); White Blood Count 16.9 K/mm3 (4.4-11.0)
[2021-03-14] MEDS: Amiodarone 360 MG in Dextrose 5% Viaflo Bag 192.8 ML 16.7 MG CONT INF ×2 (04:15→16:54)
[2021-03-14 04:20] LABS: Differential Comment SCANNED
[2021-03-14 04:21] LABS: Hypochromasia 2+; Polychromasia RARE
[2021-03-14 04:23] LABS: Anion Gap 7 (5-15); BUN 34 mg/dL (7-18); BUN/Creat Ratio 11.2 RATIO (10-20); Calcium,Total 7.9 mg/dL (8.5-10.1); Chloride 95 mmol/L (98-107); Creatinine, Serum 3.04 mg/dL (0.70-1.30); EST Glomerular Filtration Rate 22 mL/min (>60); Est Glom Filt Rate - Afr Amer 27 mL/min (>60); Estimated Creatinine Clearance 23.25 ml/min; Glucose 140 mg/dL (74-106); Sodium Level 134 mmol/L (136-145)
[2021-03-14] MEDS: Albuterol 2.5 MG/3 ML VIAL.NEB. INHALATION (04:32)
[2021-03-14] MEDS: metroNIDAZOLE 500 MG/100 ML BAG 100 MG IV ×3 (05:01→22:14)
--- NOTE | 2021-03-14 05:55 | EKG12_ITS ---
Test Reason : AFIB Blood Pressure : / mmHG Vent. Rate : 099 BPM Atrial Rate : 100 BPM P-R Int : 000 ms QRS Dur : 110 ms QT Int : 404 ms P-R-T Axes : 000 043 184 degrees QTc Int : [address] & Marked T abnormality, consider anterolateral and inferior ischemia Prolonged QT Abnormal ECG Confirmed by MARIA DOLORES CERVANTES, ALEJA ([id number]), production editor SEAN WEBB ([id number]) on 03/15/2021 9:17:39 AM Referred By: MARTHA Confirmed By:ALEJA WHITTEN MD
[2021-03-14] MEDS: Ipratropium/Albuterol Sulfate 3 ML AMPUL.NEB INHALATION ×4 (07:39→19:44)
--- NOTE | 2021-03-14 07:44 | RAD_ITS ---
STUDY: X-RAY - ABDOMEN/PELVIS REASON FOR EXAM: Male, 65 years old. Small bowel obstruction. Follow-up. TECHNIQUE: Single AP view of the abdomen / pelvis. COMPARISON: 03/13/2021. FINDINGS: NG tube tip projected over the left upper quadrant. Sidehole of the NG tube is just below the GE junction. Marked dilatation of small bowel in the midabdomen, unchanged from prior study. Paucity of gas distally. There is no demonstrated free abdominal air. The visualized liver, spleen and kidneys are grossly normal in size and morphology. Normal soft tissue structures. Normal visualized osseous structures. RAD/Abdomen Single View (Portable) IMPRESSION: Stable findings compatible with small bowel obstruction. No acute abnormality. Electronically Signed: Romero Hu MD at 10:45 EDT , Service support ,
--- NOTE | 2021-03-14 08:18 | PCM.PN.INT ---
Assessment & Plan Assessment/Plan (1) Septic shock: (2) SBO (small bowel obstruction): (3) Bronchiectasis: QUALIFIERS: Bronchiectasis type: uncomplicated Qualified Code(s): J47.9 - Bronchiectasis, uncomplicated (4) ESRD (end stage renal disease) on dialysis: (5) Chronic obstructive pulmonary disease: QUALIFIERS: COPD type: chronic bronchitis Chronic bronchitis type: mucopurulent Qualified Code(s): J41.1 - Mucopurulent chronic bronchitis PLAN: RECOMMENDATIONS: 1. Continue Levaquin therapy for total of 10 days 2. Monitor QTc. Potentially transition to Bactrim if QT prolongs 3. Amiodarone per cardiology 4. Hemodialysis per nephrology. Recommend volume removal if possible 5. Wean oxygen as tolerated IMPRESSIONS: 1. Septic shock secondary to probable stenotrophomonas Patient with positive sputum culture for stenotrophomonas on presentation. This would only be sensitive to Levaquin or Bactrim classically. Clinical suspicion that decompensation is related to stenotrophomonas. Patient has been placed on Levaquin, as this has better penetration, but will need to follow QTC closely, especially in the setting of amiodarone. Patient could be transitioned to Bactrim if needed for QT. Could consider an infectious disease consult for alternative options. Patient currently off of pressor therapy 2. Small bowel obstruction secondary to right inguinal hernia Conservative therapy at this time with an NG in place. Patient appears to be tolerating this well. Morning KUB is currently pending. Surgery is following. Defer to them on timing for intervention. 3. Acute on chronic hypoxic respiratory failure secondary to COPD/bronchiectasis exacerbation secondary to stenotrophomonas Patient had a walking oximetry completed in December that showed no need for supplemental oxygen, but had limited mobility. Patient has required BiPAP rescue during the hospitalization. Clinical suspicion for stenotrophomonas exacerbation of COPD and bronchiectasis. Possibly transition to p.o. steroids once problem #2 is resolved. Continue with bronchodilators. Patient will need a walking oximetry prior to discharge. 4. End-stage renal disease/hypertension/history of A. fib/non-ST elevation [place]/anxiety/depression/history of alcohol abuse Complicates care, management, recovery and prognosis. Defer to cardiology and nephrology on management of NSTEMI and ESRD. Patient has not required any as needed Ativan, so CIWA protocol will be discontinued. Subjective Subjective Patient did okay overnight. Patient did develop A. fib with RVR and was placed on amiodarone drip. Patient continues to report significant discomfort with NG, but has not attempted removal. Patient feels this limits his ability to cough. Patient has been given availability to ice chips, but does not believe this is relieving symptomatology. Patient has been off of Levophed since yesterday. Patient did have hemodialysis, but no fluid could be removed secondary to hypotension. Patient reported to me that he is not having any flatulence. Objective Data Objective Data Vital Signs: Vital Signs Temp Pulse Resp BP Pulse Ox 36.2 C L 139 H 26 H 113/65 98 03/14/21 04:00 03/14/21 07:40 03/14/21 07:40 03/14/21 07:00 03/14/21 07:40 Oxygen Flow Rate (L/min) 4 Oxygen Delivery Method Nasal Cannula Weight: 80.9 kg Body Mass Index (BMI) 28.8 Intake & Output: Intake and Output for Last 24 Hours 03/12/21 03/13/21 03/14/21 23:59 23:59 23:59 Intake Total 1389.29 / 1423.04 3434.78 / 3588.08 538.70 / 538.70 Output Total 1350 / 1350 1600 / 1750 200 / 200 Balance 39.29 / 73.04 1834.78 / 1838.08 338.70 / 338.70 Lab / Micro Data Result Diagrams: 03/14/21 04:00 03/14/21 04:00 Labs: Laboratory Results - last 24 hr 03/13/21 08:25: MRSA (PCR) Negative 03/13/21 16:50: Phosphorus 3.4 03/14/21 04:00: WBC 16.9 H, RBC 2.47 L, Hgb 7.6 L, Hct 24.2 L, MCV 98.0 H, MCH 30.8, MCHC 31.4 L, RDW Std Deviation 54.9 H, RDW Coeff of Karl 15.7 H, Plt Count 195, MPV 9.9, Immature Gran % (Auto) 3.000 H, Neut % (Auto) 92.6 H, Lymph % (Auto) 0.8 L, Tillman % (Auto) 3.4, Eos % (Auto) 0.0, Baso % (Auto) 0.2, Absolute Neuts (auto) 15.6 H, Absolute Lymphs (auto) 0.14 L, Nucleated RBC % 0.1, Differential Comment SCANNED, Polychromasia RARE, Hypochromasia 2+ 03/14/21 04:00: Sodium 134 L, Potassium 4.0, Chloride 95 L, Carbon Dioxide 32.0, Anion Gap 7, BUN 34 H, Creatinine 3.04 H, Estim Creat Clear Calc 23.25, Est GFR (MDRD) Af Amer 27 L, Est GFR (MDRD) Non-Af 22 L, BUN/Creatinine Ratio 11.2, Glucose 140 H, Calcium 7.9 L Micro: Microbiology 03/09/21 18:30 Sputum, Expectorated/Coughed Gram Stain - Final 03/09/21 18:30 Sputum, Expectorated/Coughed Respiratory Culture - Final Stenotrophomonas maltophilia 03/08/21 06:53 Mucosa - Nose Respiratory Panel (PCR) - Final 03/08/21 03:27 Nasal Secretion SARS-CoV-2 Antigen (Rapid) - Final Radiography Diagnostic Testing: Radiology Impression KUB X-Ray 03/13/21 08:22 IMPRESSION: No change in the bowel gas pattern from the previous exam. There are dilated gas-filled loops of small bowel compatible with a mechanical bowel obstruction. at 0915 Reported and signed by: Bi Marley MD Electronically Signed: Bi Marley MD at 9:14 EDT Tel , Service support , Physical Exam Const alert and oriented x3 General Appearance: anxious HEENT normocephalic HEENT Narrative: NG in place Eyes PERRL and conjunctivae normal; Negative for EOMs intact bilaterally Neck full ROM, No nuchal rigidity and no lymphadenopathy Chest inspection of chest normal Chest: symmetrical chest wall rise; Negative for crepitus Resp normal respiratory effort Auscultation: rhonchi and diminished lung sounds; Negative for rales or wheezes Cardio Rate: tachycardic Rhythm: abnormal rhythm irregularly irregular Heart Sounds: Negative for gallop, murmur or rub GI Inspection: abdominal distention Palpation: soft; Negative for tender, guarding or rebound tenderness present Extremity normal to inspection General Extremity: edema; Negative for clubbing or cyanosis Skin Skin Narrative: No change from previous Neuro oriented x3, CN's II-XII intact bilaterally and moves all extremities Psych Appearance: disheveled Activity / Motor Behavior: fidgetting Mood & Affect: anxious Charges/Coding Visit Charges Inpatient E&M: 64067 Subs Hosp L3
--- NOTE | 2021-03-14 08:37 | CASEMGMT ---
MJ spoke with Amor Weber with [facility], he states spoke w/pt regarding the application and it is signed, there is nothing further SW needs to do in regard to this application process at this time. SKIP Trevizo
--- NOTE | 2021-03-14 08:41 | PCM.PN.SRG ---
Subjective Subjective Patient complains some discomfort in the left side of the abdomen. Denies any nausea or vomiting. NG output was marked at 1500 yesterday however patient has been taking quite a few ice chips unsure if we are able to measure it correctly. Patient reports a very small amount of flatus. Patient's questions anti-anxiety meds he takes at home. Patient states he does take 2 at a time you know he is only prescribed 1 at a time of each. Objective Data Objective Data Vital Signs: Vital Signs Temp Pulse Resp BP Pulse Ox 97.8 F 133 H 30 H 94/67 96 03/14/21 08:00 03/14/21 08:00 03/14/21 08:00 03/14/21 08:00 03/14/21 08:00 Oxygen Flow Rate (L/min) 4 Oxygen Delivery Method Nasal Cannula Weight: 178 lb 5.663 oz Body Mass Index (BMI) 28.8 Intake & Output: Intake and Output for Last 24 Hours 03/12/21 03/13/21 03/14/21 23:59 23:59 23:59 Intake Total 1389.29 / 1423.04 3434.78 / 3588.08 538.70 / 538.70 Output Total 1350 / 1350 1600 / 1750 200 / 200 Balance 39.29 / 73.04 1834.78 / 1838.08 338.70 / 338.70 Lab / Micro Data Result Diagrams: 03/14/21 04:00 03/14/21 04:00 Labs: Laboratory Results - last 24 hr 03/13/21 08:25: MRSA (PCR) Negative 03/13/21 16:50: Phosphorus 3.4 03/14/21 04:00: WBC 16.9 H, RBC 2.47 L, Hgb 7.6 L, Hct 24.2 L, MCV 98.0 H, MCH 30.8, MCHC 31.4 L, RDW Std Deviation 54.9 H, RDW Coeff of Karl 15.7 H, Plt Count 195, MPV 9.9, Immature Gran % (Auto) 3.000 H, Neut % (Auto) 92.6 H, Lymph % (Auto) 0.8 L, [place]iscoe % (Auto) 3.4, Eos % (Auto) 0.0, Baso % (Auto) 0.2, Absolute Neuts (auto) 15.6 H, Absolute Lymphs (auto) 0.14 L, Nucleated RBC % 0.1, Differential Comment SCANNED, Polychromasia RARE, Hypochromasia 2+ 03/14/21 04:00: Sodium 134 L, Potassium 4.0, Chloride 95 L, Carbon Dioxide 32.0, Anion Gap 7, BUN 34 H, Creatinine 3.04 H, Estim Creat Clear Calc 23.25, Est GFR (MDRD) Af Amer 27 L, Est GFR (MDRD) Non-Af 22 L, BUN/Creatinine Ratio 11.2, Glucose 140 H, Calcium 7.9 L Micro: Microbiology 03/09/21 18:30 Sputum, Expectorated/Coughed Gram Stain - Final 03/09/21 18:30 Sputum, Expectorated/Coughed Respiratory Culture - Final Stenotrophomonas maltophilia 03/08/21 06:53 Mucosa - Nose Respiratory Panel (PCR) - Final 03/08/21 03:27 Nasal Secretion SARS-CoV-2 Antigen (Rapid) - Final Radiography Diagnostic Testing: Radiology Impression KUB X-Ray 03/13/21 08:22 IMPRESSION: No change in the bowel gas pattern from the previous exam. There are dilated gas-filled loops of small bowel compatible with a mechanical bowel obstruction. at 0915 Reported and signed by: Bi Marley MD Electronically Signed: Bi Marley MD at 9:14 EDT Tel , Service support , Physical Exam Narrative HEENT: NG in place light green. Respiratory: Audible wheezing Abdomen: Soft, mild tenderness on the left side of the abdomen, mild distention, no peritoneal signs. Right groin tender to even light palpation patient states has been like that all of his life. No obvious incarcerated hernia on exam Assessment & Plan Assessment/Plan (1) SBO (small bowel obstruction): (2) History of coronary artery stent placement: PLAN: Continue NG/n.p.o. okay for meds in occasional ice chips. Patient WBC is improving to 16 from 21 however patient's is a poor surgical candidate due to the pneumonia and new A. fib. In order to do a contrast study patient would have to stop taking ice chips which would not go over well with patient and he is quite impulsive and has pulled out his NG two other times. We will plan to hold off on contrast today may consider for tomorrow. Leukocytosis?likely due to aspiration versus pneumonia patient on antibiotics per primary. Olamide Arreguin M.D. Pager: [phone] [facility] [address] [place] [address], [facility], [address] [place] [address] Office: [phone] Charges/Coding Visit Charges Inpatient E&M: 12621 Subs Hosp L2
[2021-03-14] MEDS: Clopidogrel Bisulfate 75 MG Tablet PO (10:12)
[2021-03-14] MEDS: Gabapentin 100 MG Capsule PO ×2 (10:12→21:57)
[2021-03-14] MEDS: Docusate Sodium 100 MG/10 ML UDC GT ×2 (10:12→21:57)
[2021-03-14] MEDS: Enoxaparin 30 MG/0.3 ML Syringe SC (10:12)
[2021-03-14] MEDS: Loratadine 10 MG Tablet PO (10:12)
[2021-03-14] MEDS: Aspirin E.C. 81 MG Tablet PO (10:12)
[2021-03-14] MEDS: Tamsulosin HCl 0.4 MG Capsule PO (10:12)
[2021-03-14] MEDS: 0.9% Saline Lock 10 ML Syringe IV ×2 (10:22→21:58)
--- NOTE | 2021-03-14 13:33 | PCM.PN.REN ---
Subjective Subjective ngt still in place, afib with rvr, nausea, abdominal distension persists. Objective Data Objective Data Vital Signs: Vital Signs Temp Pulse Resp BP Pulse Ox 97.4 F L 127 H 20 H 116/79 100 03/14/21 12:00 03/14/21 13:00 03/14/21 13:00 03/14/21 13:00 03/14/21 13:00 Oxygen Flow Rate (L/min) 4 Oxygen Delivery Method Nasal Cannula Weight: 80.9 kg Body Mass Index (BMI) 28.8 Intake & Output: Intake and Output for Last 24 Hours 03/12/21 03/13/21 03/14/21 23:59 23:59 23:59 Intake Total 1389.29 / 1423.04 3434.78 / 3588.08 819.70 / 819.70 Output Total 1350 / 1350 1600 / 1750 1650 / 1650 Balance 39.29 / 73.04 1834.78 / 1838.08 -830.30 / -830.30 Lab / Micro Data Result Diagrams: 03/14/21 04:00 03/14/21 04:00 Labs: Laboratory Results - last 24 hr 03/13/21 08:25: MRSA (PCR) Negative 03/13/21 16:50: Phosphorus 3.4 03/14/21 04:00: WBC 16.9 H, RBC 2.47 L, Hgb 7.6 L, Hct 24.2 L, MCV 98.0 H, MCH 30.8, MCHC 31.4 L, RDW Std Deviation 54.9 H, RDW Coeff of Karl 15.7 H, Plt Count 195, MPV 9.9, Immature Gran % (Auto) 3.000 H, Neut % (Auto) 92.6 H, Lymph % (Auto) 0.8 L, Morrill % (Auto) 3.4, Eos % (Auto) 0.0, Baso % (Auto) 0.2, Absolute Neuts (auto) 15.6 H, Absolute Lymphs (auto) 0.14 L, Nucleated RBC % 0.1, Differential Comment SCANNED, Polychromasia RARE, Hypochromasia 2+ 03/14/21 04:00: Sodium 134 L, Potassium 4.0, Chloride 95 L, Carbon Dioxide 32.0, Anion Gap 7, BUN 34 H, Creatinine 3.04 H, Estim Creat Clear Calc 23.25, Est GFR (MDRD) Af Amer 27 L, Est GFR (MDRD) Non-Af 22 L, BUN/Creatinine Ratio 11.2, Glucose 140 H, Calcium 7.9 L Micro: Microbiology 03/09/21 18:30 Sputum, Expectorated/Coughed Gram Stain - Final 03/09/21 18:30 Sputum, Expectorated/Coughed Respiratory Culture - Final Stenotrophomonas maltophilia 03/08/21 06:53 Mucosa - Nose Respiratory Panel (PCR) - Final 03/08/21 03:27 Nasal Secretion SARS-CoV-2 Antigen (Rapid) - Final Radiography Diagnostic Testing: Radiology Impression KUB X-Ray 03/14/21 07:44 IMPRESSION: Stable findings compatible with small bowel obstruction. No acute abnormality. Electronically Signed: Romero Hu MD at 10:45 EDT , Service support , Physical Exam Const alert Constitutional Narrative: sluggish General Appearance: cooperative Orientation / Consciousness: awake Resp Resp Narrative: gurgling, secretions Cardio Cardio Narrative: afib with rvr Rhythm: abnormal rhythm GI GI Narrative: distended Palpation: soft Extremity no clubbing, cyanosis or edema Assessment & Plan Assessment/Plan (1) End-stage renal disease on hemodialysis: PLAN: dialysis tomorrow (2) Alcoholic cardiomyopathy: (3) History of coronary artery stent placement: (4) SBO (small bowel obstruction): PLAN: ngt to suction
--- NOTE | 2021-03-14 14:33 | PCM.PN.HOSP ---
Subjective Subjective Anxious to have NG removed. Objective Data Objective Data Vital Signs: Vital Signs Temp Pulse Resp BP Pulse Ox 36.3 C L 127 H 20 H 116/79 100 03/14/21 12:00 03/14/21 13:00 03/14/21 13:00 03/14/21 13:00 03/14/21 13:00 Oxygen Flow Rate (L/min) 4 Oxygen Delivery Method Nasal Cannula Weight: 80.9 kg Body Mass Index (BMI) 28.8 Intake & Output: Intake and Output for Last 24 Hours 03/12/21 03/13/21 03/14/21 23:59 23:59 23:59 Intake Total 1389.29 / 1423.04 3434.78 / 3588.08 819.70 / 819.70 Output Total 1350 / 1350 1600 / 1750 1650 / 1650 Balance 39.29 / 73.04 1834.78 / 1838.08 -830.30 / -830.30 Lab / Micro Data Result Diagrams: 03/14/21 04:00 03/14/21 04:00 Labs: Laboratory Results - last 24 hr 03/13/21 08:25: MRSA (PCR) Negative 03/13/21 16:50: Phosphorus 3.4 03/14/21 04:00: WBC 16.9 H, RBC 2.47 L, Hgb 7.6 L, Hct 24.2 L, MCV 98.0 H, MCH 30.8, MCHC 31.4 L, RDW Std Deviation 54.9 H, RDW Coeff of Karl 15.7 H, Plt Count 195, MPV 9.9, Immature Gran % (Auto) 3.000 H, Neut % (Auto) 92.6 H, Lymph % (Auto) 0.8 L, Addison % (Auto) 3.4, Eos % (Auto) 0.0, Baso % (Auto) 0.2, Absolute Neuts (auto) 15.6 H, Absolute Lymphs (auto) 0.14 L, Nucleated RBC % 0.1, Differential Comment SCANNED, Diff Path Review Not Reportable, Polychromasia RARE, Hypochromasia 2+ 03/14/21 04:00: Sodium 134 L, Potassium 4.0, Chloride 95 L, Carbon Dioxide 32.0, Anion Gap 7, BUN 34 H, Creatinine 3.04 H, Estim Creat Clear Calc 23.25, Est GFR (MDRD) Af Amer 27 L, Est GFR (MDRD) Non-Af 22 L, BUN/Creatinine Ratio 11.2, Glucose 140 H, Calcium 7.9 L Micro: Microbiology 03/09/21 18:30 Sputum, Expectorated/Coughed Gram Stain - Final 03/09/21 18:30 Sputum, Expectorated/Coughed Respiratory Culture - Final Stenotrophomonas maltophilia 03/08/21 06:53 Mucosa - Nose Respiratory Panel (PCR) - Final 03/08/21 03:27 Nasal Secretion SARS-CoV-2 Antigen (Rapid) - Final Radiography Diagnostic Testing: Radiology Impression KUB X-Ray 03/14/21 07:44 IMPRESSION: Stable findings compatible with small bowel obstruction. No acute abnormality. Electronically Signed: Romero Hu MD at 10:45 EDT , Service support , Physical Exam Const alert HEENT HEENT Narrative: NG in place. On NRB Resp normal respiratory effort, no use of accessory muscles and clear to auscultation bilaterally Cardio regular rate, regular rhythm, S1 normal heart sound and S2 normal heart sound GI soft to palpation GI Narrative: distended. Auscultation: hypoactive bowel sounds Assessment & Plan Assessment/Plan (1) Septic shock: (2) SBO (small bowel obstruction): (3) History of coronary artery stent placement: PLAN: 1. Septic shock 2/2 stenotrophomonas pneumonia weaned off norepinephrine. 2. Stenotrophomonas pneumonia on LVQ QOD 3. SBO NGT to suction GS following 4. NSTEMI s/p PCI to left circ continue ASA, clopidogrel, HIS 5. Afib RVR on amio gtt. 6. ESRD on HD TTSa nephrology following 7. VTE prophylaxis: LMWH Charges/Coding Visit Charges Inpatient E&M: 92713 Subs Hosp L2
--- NOTE | 2021-03-14 18:05 | PCM.PN.CARD ---
Subjective Subjective The patient remains in the ICU. He remains NPO. He remains with an NG tube in place. He believes he feels somewhat better overall. Objective Data Vital Signs: Vital Signs Temp Pulse Resp BP Pulse Ox 97.4 F L 131 H 21 H 111/73 97 03/14/21 16:00 03/14/21 18:00 03/14/21 18:00 03/14/21 18:00 03/14/21 18:00 Oxygen Flow Rate (L/min) 2 Oxygen Delivery Method Nasal Cannula Weight: 178 lb 5.663 oz Body Mass Index (BMI) 28.8 Intake & Output: Intake and Output for Last 24 Hours 03/12/21 03/13/21 03/14/21 23:59 23:59 23:59 Intake Total 1389.29 / 1423.04 3434.78 / 3588.08 1353.77 / 1353.77 Output Total 1350 / 1350 1600 / 1750 1950 / 1950 Balance 39.29 / 73.04 1834.78 / 1838.08 -596.23 / -596.23 Lab / Micro Data Result Diagrams: 03/14/21 04:00 03/14/21 04:00 Labs: Laboratory Results - last 24 hr 03/14/21 04:00: WBC 16.9 H, RBC 2.47 L, Hgb 7.6 L, Hct 24.2 L, MCV 98.0 H, MCH 30.8, MCHC 31.4 L, RDW Std Deviation 54.9 H, RDW Coeff of Karl 15.7 H, Plt Count 195, MPV 9.9, Immature Gran % (Auto) 3.000 H, Neut % (Auto) 92.6 H, Lymph % (Auto) 0.8 L, [place] % (Auto) 3.4, Eos % (Auto) 0.0, Baso % (Auto) 0.2, Absolute Neuts (auto) 15.6 H, Absolute Lymphs (auto) 0.14 L, Nucleated RBC % 0.1, Differential Comment SCANNED, Diff Path Review Not Reportable, Polychromasia RARE, Hypochromasia 2+ 03/14/21 04:00: Sodium 134 L, Potassium 4.0, Chloride 95 L, Carbon Dioxide 32.0, Anion Gap 7, BUN 34 H, Creatinine 3.04 H, Estim Creat Clear Calc 23.25, Est GFR (MDRD) Af Amer 27 L, Est GFR (MDRD) Non-Af 22 L, BUN/Creatinine Ratio 11.2, Glucose 140 H, Calcium 7.9 L Cardiology Labs/Tests 03/14/21 04:00: WBC 16.9 H, RBC 2.47 L, Hgb 7.6 L, Hct 24.2 L, MCV 98.0 H, MCH 30.8, MCHC 31.4 L, Plt Count 195, MPV 9.9, Immature Gran % (Auto) 3.000 H, Neut % (Auto) 92.6 H, Lymph % (Auto) 0.8 L, [place] % (Auto) 3.4, Eos % (Auto) 0.0, Baso % (Auto) 0.2, Absolute Neuts (auto) 15.6 H, Nucleated RBC % 0.1 03/14/21 04:00: Sodium 134 L, Potassium 4.0, Chloride 95 L, Carbon Dioxide 32.0, Anion Gap 7, BUN 34 H, Creatinine 3.04 H, Est GFR (MDRD) Af Amer 27 L, Est GFR (MDRD) Non-Af 22 L, BUN/Creatinine Ratio 11.2, Glucose 140 H, Calcium 7.9 L Rhythm: Atrial fibrillation EKG: Atrial fibrillation; ST/T wave changes: Consider myocardial ischemia: [id number] ECHO: 03-08-2021 Interpretation Summary Normal LV size. The estimated ejection fraction is 45 %. The rest of the wall segments are hypokinetic. Moderate segmental systolic dysfunction (see wall motion). Stress Test: [facility]-16-[address] [facility] [place], [place] [id number] MR#: [id number]:[id number]:ALEJA RICHARD [facility] #:[id number]: 1955 61From:Iban Valdez MDPrimary Care: Pedro Recio MD: ADM INOOrdering Dr: Sex: Stress Test Report Pharmacologic myocardial perfusion stress test 61-year-old man with a history of chest pain. Stress protocol: Resting EKG demonstrates normal sinus rhythm with a rate of 69 bpm normal intervals noted. Resting blood pressure is 164/70 mmHg. 0.4 mg of regadenoson was infused per usual protocol followed by rapid intravenous saline flush injection. Continuous EKG monitoring was performed. At rest there were no ST or T-wave changes noted to suggest abnormal flow reserve. At peak infusion no ST or T-wave changes were noted suggest abnormal flow reserve. No clinical angina was noted. Blood pressure was 164/70 with a final blood pressure of 180/80 mmHg. Myocardial perfusion protocol: 12.0 mCi of technetium 99m sestamibi was injected at rest. 0.4 mg regadenoson was infused per usual protocol. At peak infusion 36.0 mCi of technetium 99m sestamibi was injected. Stress images were obtained. Stress and rest images were reconstructed and compared in the short axis vertical long and horizontal long axis. Gated images were also obtained. Perfusion SPECT analysis: Review of the stress images demonstrate normal uptake of tracer noted in all areas of the myocardium. There is mildly reduced perfusion on the inferior wall on the stress images however the resting images demonstrate a similar patent no obvious ischemia is noted. No previous infarct is present. Gated SPECT analysis: The gated ejection fraction is noted to be approximately 43%. Global hypokinesis is present. Conclusion: Normal pharmacologic myocardial perfusion stress test. Mild cardiomyopathy. Cardiac Cath: 03-08-2021 CONCLUSIONS Coronary disease with significant left circumflex artery lesion and totally occluded right coronary artery with left to right collaterals. RECOMMENDATIONS Referred for immediate PCI DESCRIPTION OF PROCEDURE The patient arrived to the procedure lab. The risks and benefits of the procedure as well as a full description of our services here and current unavailability of surgical backup were fully explained to the patient and/or their significant other prior to the catheterization. The Timeout was completed, verifying the correct patient and procedure. The patient's procedural site was prepped and draped in the usual fashion. Local anesthetic was given subcutaneously to right radial region with Lidocaine 2%. Using a modified Seldinger technique, arterial access was obtained via the right radial artery, a 6Fr sheath was inserted. Left Coronary Artery selective angiography was performed in multiple views using a 5 Fr. 4.0 Dryden catheter. Right Coronary Artery selective angiography was then performed in multiple views using a 5 Fr. 4.0 Dryden catheter. LV to AO pullback pressures were then recorded. CORONARY ANGIOGRAPHY DOMINANCE: Right Dominant LEFT HEART ASSESSMENT Left Ventricular Ejection Fraction: by Echo 40 % LEFT MAIN: Mild calcification, No significant disease noted LEFT ANTERIOR DESCENDING ARTERY: Mild luminal irregularities less than 30% OSTIAL LAD: 40 % Stenosis CIRCUMFLEX ARTERY: MID CIRC: 70 hazy % Stenosis RIGHT CORONARY ARTERY: PROX RCA: is occluded COLLATERAL FLOW: Collateral flow from Left to Right PCI: 03-08-2021 LCx: PTCA/bare-metal stent Radiography Diagnostic Testing: Radiology Impression KUB X-Ray 03/14/21 07:44 IMPRESSION: Stable findings compatible with small bowel obstruction. No acute abnormality. Electronically Signed: Romero Hu MD at 10:45 EDT , Service support , Physical Exam Const alert, oriented x3 and no apparent distress General Appearance: cooperative Orientation / Consciousness: awake HEENT normocephalic, head/scalp atraumatic and hearing grossly normal bilaterally Eyes PERRL, EOMs intact bilaterally and conjunctivae normal Neck full ROM, supple and no JVD General: normal visual inspection Lymph Lymphatic: lymphadenopathy Chest inspection of chest normal and palpation of chest normal Resp Auscultation: clear to auscultation bilaterally and rhonchi throughout Cardio S1 normal heart sound and S2 normal heart sound Jugular Venous Distention: JVD Palpation: normal PMI Rhythm: abnormal rhythm irregularly irregular GI GI Narrative: Hypoactive bowel sounds Extremity normal capillary refill, no clubbing, cyanosis or edema and no pedal edema Extremity Narrative: Left upper extremity/arm: AV fistula Skin no rashes or lesions noted Neuro oriented x3, CN's II-XII intact bilaterally and moves all extremities Psych mental status grossly normal Appearance: grossly normal and appropriate Assessment & Plan Assessment/Plan (1) Elevated troponin: PLAN: The patient had findings concerning for an underlying non-ST segment elevation SD. The patient has underlying CAD. He has undergone noninvasive and invasive evaluation as noted above. He underwent LCx PTCA/bare-metal stent. He will continue medical therapy as best as tolerated. Ideally this would include agents such as his aspirin and antiplatelet therapy with clopidogrel/Plavix. He would also be on other agents as well such as beta-blockers and afterload reducing agents. However, some of these agents cannot be used at the moment secondary to the patient's diminished blood pressure. He will also continue lipid-lowering therapy/statin therapy as best as possible. (2) Alcoholic cardiomyopathy: PLAN: He does have diminished LV systolic function/LVEF. He will continue medical therapy when he is able from a hemodynamic standpoint. This will include agents such as beta-blockers and afterload reducing agents. He needs to refrain from alcohol use. His LV function can be followed over time with echocardiographic studies. (3) Paroxysmal atrial fibrillation: PLAN: He has had episodes of atrial fibrillation. He is on medical management at this time to assist with his rate and rhythm control. This includes IV amiodarone. This will be continued at this time. Hopefully over time of his blood pressure stabilizes and he is able to take oral intake and his medications can be adjusted. (4) Hyperlipidemia: QUALIFIERS: Hyperlipidemia type: unspecified Qualified Code(s): E78.5 - Hyperlipidemia, unspecified PLAN: He will continue medical management. (5) Benign hypertension: PLAN: He has been hypotensive. He was on IV vasopressor agents. These agents have been placed on hold at this time. Hopefully his blood pressure will continue to improve. (6) ESRD (end stage renal disease) on dialysis: PLAN: He is going to continue under nephrology for his dialysis therapy. (7) SBO (small bowel obstruction): PLAN: This is being managed as per general surgery and hospitalist and intensive care unit. His medications are being adjusted to try and accommodate for the situation. (8) Sepsis: PLAN: The patient has been diagnosed with sepsis. He has continued medical management which has included antibiotic therapy. He was on IV vasopressor agents with IV Levophed to support his blood pressure. This has been placed on hold at this time. He will continue to be followed by internal medicine and pulmonology/critical care medicine.
[2021-03-14] MEDS: Sertraline 100 MG Tablet PO (21:57)
[2021-03-14] MEDS: hydrOXYzine PAM 25 MG Capsule 50 MG PO (21:57)
[2021-03-14] MEDS: Atorvastatin Calcium 40 MG Tablet PO (21:57)
[2021-03-14] MEDS: oxyCODONE 5 MG Tablet PO (21:58)
[2021-03-15] VITALS (42 sets, daily range): BP systolic 99–132; BP diastolic 64–85; PULSE 105–141; RESP 14–27; TEMP 35.9–37; O2SAT 88–100
[2021-03-15] MEDS: Albuterol 2.5 MG/3 ML VIAL.NEB. INHALATION (00:32)
[2021-03-15 03:59] LABS: Absolute Neutrophil Count 14.6 X10^3/uL (2.0-7.7); Basophil# 0.02 X10^3/uL; Basophil% 0.1 % (0-1); Hematocrit 24.1 % (40-54); Hemoglobin 7.7 g/dL (13.0-16.5); Lymphocyte % 1.3 % (19-41); Mean Corpuscular Volume 97.2 fL (80-94); Mean Platelet Vol. 10.8 fl (6.2-12.0); Monocyte# 0.45 X10^3/uL; Monocyte% 2.9 % (0-10); NRBC Flagged by Analyzer 0 % (0-5); Neutrophil # 14.63 X10^3/uL (2.7-7.7); Neutrophil % 95.1 % (47-70); POSITIVE DIFFERENTIAL YES; Platelet Count 208 K/mm3 (150-450); RBC Distribution Width CV 15.2 % (11.6-14.6); RBC Distribution Width SD 52.9 fl (35.1-43.9); Red Blood Count 2.48 M/mm3 (4.6-6.2); White Blood Count 15.4 K/mm3 (4.4-11.0)
[2021-03-15 04:17] LABS: Anion Gap 11 (5-15); BUN 50 mg/dL (7-18); BUN/Creat Ratio 12.5 RATIO (10-20); Calcium,Total 8.8 mg/dL (8.5-10.1); Chloride 92 mmol/L (98-107); Creatinine, Serum 4.01 mg/dL (0.70-1.30); EST Glomerular Filtration Rate 16 mL/min (>60); Est Glom Filt Rate - Afr Amer 20 mL/min (>60); Estimated Creatinine Clearance 17.63 ml/min; Glucose 115 mg/dL (74-106); Potassium 4.1 mmol/L (3.5-5.1); Sodium Level 134 mmol/L (136-145)
[2021-03-15 04:21] LABS: Differential Indicated SCAN CRITERIA MET
[2021-03-15] MEDS: Amiodarone 360 MG in Dextrose 5% Viaflo Bag 192.8 ML 16.7 MG CONT INF ×2 (04:33→15:49)
[2021-03-15 05:22] LABS: Differential Comment SCANNED; Hypochromasia 1+
--- NOTE | 2021-03-15 05:45 | RAD_ITS ---
INDICATION: SBO EXAMINATION/TECHNIQUE: X-RAY - XR Abdomen 1 View COMPARISON: March 14 at 8:31 AM. FINDINGS: Right IJ central line visualized with tip in the SVC. Nasogastric tube visualized with tip in the stomach. BOWEL GAS PATTERN: Markedly distended loops of small bowel are visualized measuring up to 7.1 cm, no evidence of air-fluid levels is seen. Small bowel loops demonstrate slight increased distention in comparison to the prior studies. Air visualized in the large bowel loops with no evidence of markedly distended loops of large bowel is seen. FREE AIR: Not assessed on a single supine view. ORGANOMEGALY: Not seen. CALCIFICATIONS: No abnormal calcifications observed. LOWER CHEST: Prominence of the bronchovascular and interstitial lung markings is visualized, cannot rule out a left lower lobe infiltrate or pleural effusion, scattered areas of patchy airspace opacification, cannot rule out Covid 19 disease would recommend clinical correlation. Mild cardiomegaly is seen. BONES AND SOFT TISSUES: Degenerative bone changes seen. Vascular calcifications seen. RAD/Abdomen Single View (Portable) IMPRESSION: Small bowel obstruction with slight increased size of the small bowel loops in comparison to the prior study suggestive of progression, no evidence of perforation. Electronically Signed: Adrian Anderson MD at 8:57 EDT Tel , Service support ,
[2021-03-15] MEDS: levoFLOXacin 500 MG Tablet PO (05:53)
[2021-03-15] MEDS: metroNIDAZOLE 500 MG/100 ML BAG 100 MG IV ×3 (05:53→22:34)
[2021-03-15] MEDS: Ipratropium/Albuterol Sulfate 3 ML AMPUL.NEB INHALATION ×4 (07:03→19:20)
--- NOTE | 2021-03-15 07:07 | NURSING ---
Called dialysis center and nurse will be at [facility] between 8/9 am to dialysis patient. Will pass along in report.
--- NOTE | 2021-03-15 08:45 | PN.SURG_ITS ---
Subjective Subjective Patient still complains of some abdominal discomfort with palpation, denies any nausea or vomiting. Patient denies any flatus, does state he felt like his stomach is gurgling. NG overnight recorded was 250cc at 3 AM however report from night nurse was told 850 cc overnight. Currently is clamped for meds. Objective Data Objective Data Vital Signs: Vital Signs Temp Pulse Resp BP Pulse Ox 98.6 F 124 H 20 H 120/72 99 03/15/21 04:00 03/15/21 07:01 03/15/21 07:01 03/15/21 07:00 03/15/21 07:01 Oxygen Flow Rate (L/min) 2 Oxygen Delivery Method Nasal Cannula Weight: 198 lb 10.184 oz Body Mass Index (BMI) 28.8 Intake & Output: Intake and Output for Last 24 Hours 03/13/21 03/14/21 03/15/21 23:59 23:59 23:59 Intake Total 3434.78 / 3588.08 1888.89 / 1905.59 333.36 / 333.36 Output Total 1600 / 1750 2075 / 2075 350 / 350 Balance 1834.78 / 1838.08 -186.11 / -169.41 -16.64 / -16.64 Lab / Micro Data Result Diagrams: 03/15/21 03:45 03/15/21 03:45 Labs: Laboratory Results - last 24 hr 03/14/21 04:00: Diff Path Review Not Reportable 03/15/21 03:45: WBC 15.4 H, RBC 2.48 L, Hgb 7.7 L, Hct 24.1 L, MCV 97.2 H, MCH 31.0, MCHC 32.0, RDW Std Deviation 52.9 H, RDW Coeff of Karl 15.2 H, Plt Count 208, MPV 10.8, Immature Gran % (Auto) 0.600, Neut % (Auto) 95.1 H, Lymph % (Auto) 1.3 L, [place] % (Auto) 2.9, Eos % (Auto) 0.0, Baso % (Auto) 0.1, Absolute Neuts (auto) 14.6 H, Absolute Lymphs (auto) 0.20 L, Nucleated RBC % 0, Differential Comment SCANNED, Hypochromasia 1+ 03/15/21 03:45: Sodium 134 L, Potassium 4.1, Chloride 92 L, Carbon Dioxide 31.0, Anion Gap 11, BUN 50 H, Creatinine 4.01 H, Estim Creat Clear Calc 17.63, Est GFR (MDRD) Af Amer 20 L, Est GFR (MDRD) Non-Af 16 L, BUN/Creatinine Ratio 12.5, Glucose 115 H, Calcium 8.8 Micro: Microbiology 03/12/21 22:30 Blood Culture (Wb) - Line Draw Blood Culture - Preliminary No growth in 48 hours. 03/12/21 20:15 Blood Culture (Wb) - Right Forearm Blood Culture - Preliminary No growth in 48 hours. 03/09/21 18:30 Sputum, Expectorated/Coughed Gram Stain - Final 03/09/21 18:30 Sputum, Expectorated/Coughed Respiratory Culture - Final Stenotrophomonas maltophilia 03/08/21 06:53 Mucosa - Nose Respiratory Panel (PCR) - Final 03/08/21 03:27 Nasal Secretion SARS-CoV-2 Antigen (Rapid) - Final Radiography Diagnostic Testing: Radiology Impression KUB X-Ray 03/14/21 07:44 IMPRESSION: Stable findings compatible with small bowel obstruction. No acute abnormality. Electronically Signed: Romero Hu MD at 10:45 EDT , Service support , Physical Exam Narrative General: Patient is cooperative alert and oriented. HEENT: NG in place light green. Respiratory: Audible wheezing Abdomen: Soft, mild tenderness on the left side of the abdomen, mild distention, no peritoneal signs. Right groin tender to even light palpation (patient states has been like that all of his life.) No obvious incarcerated hernia on exam Assessment & Plan Assessment/Plan (1) SBO (small bowel obstruction): (2) History of coronary artery stent placement: PLAN: Continue NG/n.p.o. okay for meds in occasional ice chips. Unsure if would do contrast today as patient may still have a bit of drainage-- KUB does show dilated small bowel, may be a little more gas seen in the previously decompressed bowel on the right side the abdomen. Will have nurse call with the residual after having NG clamped for meds to see how much that is to determine whether p.o. contrast may be helpful today versus tomorrow. Patient WBC is improving to 15 from 16. Leukocytosis? pneumonia patient on antibiotics per primary. A. fib, management per primary/ICU. Addendum: Per nursing after clamp for meds patient drained 500 and an hour from 9-10 o'clock. Most recent check from 1120 until 130PM I verified there is 350cc in the container. Will plan for PO contrast in AM.Pt currently getting dialysis. Olamide Arreguin M.D. Pager: [phone] [facility] [address] [place] [address], [facility], [address] [place] [address] Office: [phone] Charges/Coding Visit Charges Inpatient E&M: 88423 Subs Hosp L2
[2021-03-15] MEDS: Enoxaparin 30 MG/0.3 ML Syringe SC (09:48)
[2021-03-15] MEDS: Loratadine 10 MG Tablet PO (09:49)
[2021-03-15] MEDS: Clopidogrel Bisulfate 75 MG Tablet PO (09:49)
[2021-03-15] MEDS: Gabapentin 100 MG Capsule PO ×2 (09:49→22:17)
[2021-03-15] MEDS: Aspirin E.C. 81 MG Tablet PO (09:49)
[2021-03-15] MEDS: Tamsulosin HCl 0.4 MG Capsule PO (09:49)
[2021-03-15] MEDS: Docusate Sodium 100 MG/10 ML UDC GT ×2 (09:49→22:17)
--- NOTE | 2021-03-15 09:49 | PN.CARD_ITS ---
Documented by User: Piyush Posada BUSINESS DEVELOPMENT INTERN, BUSINESS DEVELOPMENT INTERN-C 03/15/21 10:31 Subjective Subjective Patient states overall feeling well. He denies chest pain, SOB, or palpitations. Objective Data Vital Signs: Vital Signs Temp Pulse Resp BP Pulse Ox 98.6 F 124 H 20 H 120/72 99 03/15/21 04:00 03/15/21 07:01 03/15/21 07:01 03/15/21 07:00 03/15/21 07:01 Oxygen Flow Rate (L/min) 2 Oxygen Delivery Method Nasal Cannula Weight: 198 lb 10.184 oz Body Mass Index (BMI) 28.8 Intake & Output: Intake and Output for Last 24 Hours 03/13/21 03/14/21 03/15/21 23:59 23:59 23:59 Intake Total 3434.78 / 3588.08 1888.89 / 1905.59 363.36 / 363.36 Output Total 1600 / 1750 2075 / 2075 350 / 350 Balance 1834.78 / 1838.08 -186.11 / -169.41 13.36 / 13.36 Lab / Micro Data Result Diagrams: 03/15/21 03:45 03/15/21 03:45 Labs: Laboratory Results - last 24 hr 03/14/21 04:00: Diff Path Review Not Reportable 03/15/21 03:45: WBC 15.4 H, RBC 2.48 L, Hgb 7.7 L, Hct 24.1 L, MCV 97.2 H, MCH 31.0, MCHC 32.0, RDW Std Deviation 52.9 H, RDW Coeff of Karl 15.2 H, Plt Count 208, MPV 10.8, Immature Gran % (Auto) 0.600, Neut % (Auto) 95.1 H, Lymph % (Aut o) 1.3 L, [place] % (Auto) 2.9, Eos % (Auto) 0.0, Baso % (Auto) 0.1, Absolute Neuts (auto) 14.6 H, Absolute Lymphs (auto) 0.20 L, Nucleated RBC % 0, Differential Comment SCANNED, Hypochromasia 1+ 03/15/21 03:45: Sodium 134 L, Potassium 4.1, Chloride 92 L, Carbon Dioxide 31.0, Anion Gap 11, BUN 50 H, Creatinine 4.01 H, Estim Creat Clear Calc 17.63, Est GFR (MDRD) Af Amer 20 L, Est GFR (MDRD) Non-Af 16 L, BUN/Creatinine Ratio 12.5, Glucose 115 H, Calcium 8.8 Micro: Microbiology 03/12/21 22:30 Blood Culture (Wb) - Line Draw Blood Culture - Preliminary No growth in 48 hours. 03/12/21 20:15 Blood Culture (Wb) - Right Forearm Blood Culture - Preliminary No growth in 48 hours. Cardiology Labs/Tests 03/15/21 03:45: WBC 15.4 H, RBC 2.48 L, Hgb 7.7 L, Hct 24.1 L, MCV 97.2 H, MCH 31.0, MCHC 32.0, Plt Count 208, MPV 10.8, Immature Gran % (Auto) 0.600, Neut % (Auto) 95.1 H, Lymph % (Auto) 1.3 L, [place] % (Auto) 2.9, Eos % (Auto) 0.0, Baso % (Auto) 0.1, Absolute Neuts (auto) 14.6 H, Nucleated RBC % 0 03/15/21 03:45: Sodium 134 L, Potassium 4.1, Chloride 92 L, Carbon Dioxide 31.0, Anion Gap 11, BUN 50 H, Creatinine 4.01 H, Est GFR (MDRD) Af Amer 20 L, Est GFR (MDRD) Non-Af 16 L, BUN/Creatinine Ratio 12.5, Glucose 115 H, Calcium 8.8 Rhythm: Atrial fibrillation EKG: Atrial fibrillation; ST/T wave changes: Consider myocardial ischemia: [id number] ECHO: 03-08-2021 Interpretation Summary Normal LV size. The estimated ejection fraction is 45 %. The rest of the wall segments are hypokinetic. Moderate segmental systolic dysfunction (see wall motion). Stress Test: [id number] [place] [address] MR#: [id number]:[id number]:RAHEEL RICHARD [facility] #:[id number]: 1955 61From:[place] MDPrimary Care: Hemal CERVANTES,Hirotatus: ADM INOOrdering Dr: Sex: Stress Test Report Pharmacologic myocardial perfusion stress test 61-year-old man with a history of chest pain. Stress protocol: Resting EKG demonstrates normal sinus rhythm with a rate of 69 bpm normal intervals noted. Resting blood pressure is 164/70 mmHg. 0.4 mg of regadenoson was infused per usual protocol followed by rapid intravenous saline flush injection. Continuous EKG monitoring was performed. At rest there were no ST or T-wave changes noted to suggest abnormal flow reserve. At peak infusion no ST or T-wave changes were noted suggest abnormal flow reserve. No clinical angina was noted. Blood pressure was 164/70 with a final blood pressure of 180/80 mmHg. Myocardial perfusion protocol: 12.0 mCi of technetium 99m sestamibi was injected at rest. 0.4 mg regadenoson was infused per usual protocol. At peak infusion 36.0 mCi of technetium 99m sestamibi was injected. Stress images were obtained. Stress and rest images were reconstructed and compared in the short axis vertical long and horizontal long axis. Gated images were also obtained. Perfusion SPECT analysis: Review of the stress images demonstrate normal uptake of tracer noted in all areas of the myocardium. There is mildly reduced perfusion on the inferior wall on the stress images however the resting images demonstrate a similar patent no obvious ischemia is noted. No previous infarct is present. Gated SPECT analysis: The gated ejection fraction is noted to be approximately 43%. Global hypokinesis is present. Conclusion: Normal pharmacologic myocardial perfusion stress test. Mild cardiomyopathy. Cardiac Cath: 03-08-2021 CONCLUSIONS Coronary disease with significant left circumflex artery lesion and totally occluded right coronary artery with left to right collaterals. RECOMMENDATIONS Referred for immediate PCI DESCRIPTION OF PROCEDURE The patient arrived to the procedure lab. The risks and benefits of the procedure as well as a full description of our services here and current unavailability of surgical backup were fully explained to the patient and/or their significant other prior to the catheterization. The Timeout was completed, verifying the correct patient and procedure. The patient's procedural site was prepped and draped in the usual fashion. Local anesthetic was given subcutaneously to right radial region with Lidocaine 2%. Using a modified Janis tri technique, arterial access was obtained via the right radial artery, a 6Fr sheath was inserted. Left Coronary Artery selective angiography was performed in multiple views using a 5 Fr. 4.0 [place] catheter. Right Coronary Artery selective angiography was then performed in multiple views using a 5 Fr. 4.0 [place] catheter. LV to AO pullback pressures were then recorded. CORONARY ANGIOGRAPHY DOMINANCE: Right Dominant LEFT HEART ASSESSMENT Left Ventricular Ejection Fraction: by Echo 40 % LEFT MAIN: Mild calcification, No significant disease noted LEFT ANTERIOR DESCENDING ARTERY: Mild luminal irregularities less than 30% OSTIAL LAD: 40 % Stenosis CIRCUMFLEX ARTERY: MID CIRC: 70 hazy % Stenosis RIGHT CORONARY ARTERY: PROX RCA: is occluded COLLATERAL FLOW: Collateral flow from Left to Right PCI: 03-08-2021 LCx: PTCA/bare-metal stent Radiography Diagnostic Testing: Radiology Impression KUB X-Ray 03/14/21 07:44 IMPRESSION: Stable findings compatible with small bowel obstruction. No acute abnormality. Electronically Signed: Romero Hu MD at 10:45 EDT , Service support , KUB X-Ray 03/15/21 05:45 IMPRESSION: Small bowel obstruction with slight increased size of the small bowel loops in comparison to the prior study suggestive of progression, no evidence of perforation. Electronically Signed: Adrian Anderson MD at 8:57 EDT Tel , Service support , Physical Exam Const alert, oriented x3 and no apparent distress Orientation / Consciousness: awake HEENT normocephalic Neck no carotid bruits Neck Narrative: JVD is difficult to assess d/t Rt IJ central line Chest inspection of chest normal and palpation of chest normal Resp normal respiratory effort Auscultation: rhonchi Cardio S1 normal heart sound, S2 normal heart sound and no murmurs; Negative for regular rate or regular rhythm Rate: tachycardic Rhythm: abnormal rhythm irregularly irregular Heart Sounds: S1 normal and S2 normal; Negative for murmur Bruits: Negative for carotid bruit Peripheral Pulses: pulses 2+ throughout GI Auscultation: hypoactive bowel sounds Palpation: soft Extremity normal to inspection and normal capillary refill General Extremity: edema bilateral lower extremity Details: mild Peripheral Pulses: Yes pulses 2+ throughout Neuro Neuro Narrative: Engages in conversation appropriately Psych mental status grossly normal Assessment & Plan Assessment/Plan (1) Elevated troponin: PLAN: The patient had findings concerning for an underlying non-ST segment elevation PR. The patient has underlying CAD. He has undergone noninvasive and invasive evaluation as noted above. He underwent LCx PTCA/bare-metal stent. He will continue medical therapy as best as tolerated. Ideally this would include agents such as his aspirin and antiplatelet therapy with clopidog rel/Plavix. He would also be on other agents as well such as beta-blockers and afterload reducing agents. We will initiate IV Metoprolol today. He will also continue lipid-lowering therapy/statin therapy as best as possible. (2) Alcoholic cardiomyopathy: PLAN: He does have diminished LV systolic function/LVEF. He will continue medical therapy when he is able from a hemodynamic standpoint. This will include agents such as beta-blockers and afterload reducing agents. He needs to refrain from alcohol use. His LV function can be followed over time with echocardiographic studies. Hopefully with better rate control dialysis can better assist with volume control. (3) Paroxysmal atrial fibrillation: PLAN: He continues to have atrial fibrillation with rate into the 120s. He is on medical management at this time to assist with his rate and rhythm control. This includes IV amiodarone. His oral diltiazem is currently on hold d/t dialysis and concerns it will reduce blood pressure. We will initiate metoprolol 5 mg IV every six hours and overtime transition to oral metoprolol plus or minus diltiazem based on response and blood pressure. He will continue with lovenox injection for CVA protection, which will need to be transitioned to oral anticoagulation in time. (4) Hyperlipidemia: QUALIFIERS: Hyperlipidemia type: unspecified Qualified Code(s): E78.5 - Hyperlipidemia, unspecified PLAN: He will continue medical management. (5) Benign hypertension: PLAN: He is off Levophen at this time and his blood pressure appears controlled and stable. We will follow this closely with initiation of metoprolol and adjust medications as necessary. (6) ESRD (end stage renal disease) on dialysis: PLAN: He is going to continue under nephrology for his dialysis therapy. Hopefully this continues to regulate fluid volume. (7) SBO (small bowel obstruction): PLAN: This is being managed as per general surgery and hospitalist and intensive care unit. His medications are being adjusted to try and accommodate for the situation. (8) Sepsis: PLAN: The patient has been diagnosed with sepsis. He has continued medical management which has included antibiotic therapy. He was on IV vasopressor agents with IV Levophed to support his blood pressure. This has been placed on hold at this time. He will continue to be followed by internal medicine and pulmonology/critical care medicine. Documented by User: Dr. Raheel Hinojosa MD 03/15/21 17:29 Lab / Micro Data Result Diagrams: 03/15/21 03:45 03/15/21 03:45 Assessment & Plan Addt'l Comments The patient was independently evaluated and examined. The patient states that overall he is feeling better. He believes that his breathing will improve once his abdomen has improved and he is able to be up and about more. On examination his lungs demonstrate diffuse scattered upper airway sounds. His cardiovascular exam demonstrates an irregular rhythm with a normal S1 and S2. His abdomen appears to demonstrate hypoactive bowel sounds. His extremities do not demonstrate any obvious peripheral pitting edema. His rhythm remains atrial fibrillation. His rate has varied. This is despite being on IV amiodarone therapy and receiving IV metoprolol therapy. As his blood pressure appears to be improved and he has tolerated hemodialysis he will initiate additional medical therapy with IV diltiazem to assist with his rate control. Hopefully over time his small bowel obstruction will resolve and he will be able to take oral medication for his cardiovascular conditions, etc. The patient's case was discussed and reviewed with Piyush posada CNP. This note was generated using a voice recognition system and there may be incorrect words, spelling or punctuation that were not noted when reviewing the office note prior to saving.
--- NOTE | 2021-03-15 10:01 | PCM.PN.INT ---
Assessment & Plan Assessment/Plan (1) Septic shock: (2) SBO (small bowel obstruction): (3) Bronchiectasis: QUALIFIERS: Bronchiectasis type: uncomplicated Qualified Code(s): J47.9 - Bronchiectasis, uncomplicated (4) ESRD (end stage renal disease) on dialysis: (5) Chronic obstructive pulmonary disease: QUALIFIERS: COPD type: chronic bronchitis Chronic bronchitis type: mucopurulent Qualified Code(s): J41.1 - Mucopurulent chronic bronchitis PLAN: RECOMMENDATIONS: 1. Continue Levaquin therapy for total of 10 days 2. Monitor QTc. Potentially transition to Bactrim if QT prolongs 3. Amiodarone per cardiology 4. Hemodialysis per nephrology. Recommend volume removal if possible 5. Wean oxygen as tolerated 6. Possibly reinitiate Cardizem if patient able to tolerate hemodialysis IMPRESSIONS: 1. Septic shock secondary to probable stenotrophomonas Patient with positive sputum culture for stenotrophomonas on presentation. This would only be sensitive to Levaquin or Bactrim classically. Clinical suspicion that decompensation is related to stenotrophomonas. Patient has been placed on Levaquin, as this has better penetration, but will need to follow QTC closely, especially in the setting of amiodarone. Patient could be transitioned to Bactrim if needed for QT. Could consider an infectious disease consult for alternative options. Patient currently off of pressor therapy and fevers have resolved. Anticipate 10-day course of antibiotics total. 2. Small bowel obstruction secondary to right inguinal hernia Conservative therapy at this time with an NG in place. Patient appears to be tolerating this well. Morning KUB is showing little improvement. Surgery is following. Defer to them on timing for intervention. 3. Acute on chronic hypoxic respiratory failure secondary to COPD/bronchiectasis exacerbation secondary to stenotrophomonas Patient had a walking oximetry completed in December that showed no need for supplemental oxygen, but had limited mobility. Patient has required BiPAP rescue during the hospitalization. Clinical suspicion for stenotrophomonas exacerbation of COPD and bronchiectasis. Possibly transition to p.o. steroids once problem #2 is resolved for 10 days total, which ever is first. Continue with bronchodilators. Patient will need a walking oximetry prior to discharge. 4. End-stage renal disease/hypertension/history of A. fib/non-ST elevation NV/anxiety/depression/history of alcohol abuse Complicates care, management, recovery and prognosis. Defer to cardiology and nephrology on management of NSTEMI and ESRD. Patient has not required any as needed Ativan, so CIWA protocol will be discontinued. Patient unable to tolerate volume removal previously. If able to tolerate dialysis, may add back patient's baseline Cardizem. Subjective Subjective Patient did well overnight. No acute issues were reported. Patient's oxygenation status has improved. Patient remains in A. fib with RVR despite amiodarone. Patient is scheduled to have hemodialysis today. Patient is reporting flatulence, but nursing is unclear if he is being honest. Patient continues to ask for NG to be removed. Objective Data Objective Data Vital Signs: Vital Signs Temp Pulse Resp BP Pulse Ox 37.0 C 124 H 20 H 120/72 99 03/15/21 04:00 03/15/21 07:01 03/15/21 07:01 03/15/21 07:00 03/15/21 07:01 Oxygen Flow Rate (L/min) 2 Oxygen Delivery Method Nasal Cannula Weight: 90.1 kg Body Mass Index (BMI) 28.8 Intake & Output: Intake and Output for Last 24 Hours 03/13/21 03/14/21 03/15/21 23:59 23:59 23:59 Intake Total 3434.78 / 3588.08 1888.89 / 1905.59 363.36 / 363.36 Output Total 1600 / 1750 2075 / 2075 350 / 350 Balance 1834.78 / 1838.08 -186.11 / -169.41 13.36 / 13.36 Lab / Micro Data Result Diagrams: 03/15/21 03:45 03/15/21 03:45 Labs: Laboratory Results - last 24 hr 03/14/21 04:00: Diff Path Review Not Reportable 03/15/21 03:45: WBC 15.4 H, RBC 2.48 L, Hgb 7.7 L, Hct 24.1 L, MCV 97.2 H, MCH 31.0, MCHC 32.0, RDW Std Deviation 52.9 H, RDW Coeff of Karl 15.2 H, Plt Count 208, MPV 10.8, Immature Gran % (Auto) 0.600, Neut % (Auto) 95.1 H, Lymph % (Auto) 1.3 L, [place] % (Auto) 2.9, Eos % (Auto) 0.0, Baso % (Auto) 0.1, Absolute Neuts (auto) 14.6 H, Absolute Lymphs (auto) 0.20 L, Nucleated RBC % 0, Differential Comment SCANNED, Hypochromasia 1+ 03/15/21 03:45: Sodium 134 L, Potassium 4.1, Chloride 92 L, Carbon Dioxide 31.0, Anion Gap 11, BUN 50 H, Creatinine 4.01 H, Estim Creat Clear Calc 17.63, Est GFR (MDRD) Af Amer 20 L, Est GFR (MDRD) Non-Af 16 L, BUN/Creatinine Ratio 12.5, Glucose 115 H, Calcium 8.8 Micro: Microbiology 03/12/21 22:30 Blood Culture (Wb) - Line Draw Blood Culture - Preliminary No growth in 48 hours. 03/12/21 20:15 Blood Culture (Wb) - Right Forearm Blood Culture - Preliminary No growth in 48 hours. 03/09/21 18:30 Sputum, Expectorated/Coughed Gram Stain - Final 03/09/21 18:30 Sputum, Expectorated/Coughed Respiratory Culture - Final Stenotrophomonas maltophilia 03/08/21 06:53 Mucosa - Nose Respiratory Panel (PCR) - Final 03/08/21 03:27 Nasal Secretion SARS-CoV-2 Antigen (Rapid) - Final Radiography Diagnostic Testing: Radiology Impression KUB X-Ray 03/14/21 07:44 IMPRESSION: Stable findings compatible with small bowel obstruction. No acute abnormality. Electronically Signed: Romero Hu MD at 10:45 EDT , Service support , KUB X-Ray 03/15/21 05:45 IMPRESSION: Small bowel obstruction with slight increased size of the small bowel loops in comparison to the prior study suggestive of progression, no evidence of perforation. Electronically Signed: Adrian Anderson MD at 8:57 EDT Tel , Service support , Physical Exam Const alert and oriented x3 General Appearance: cooperative and comfortable HEENT normocephalic HEENT Narrative: NG in place Eyes PERRL and conjunctivae normal; Negative for EOMs intact bilaterally Neck full ROM, No nuchal rigidity and no lymphadenopathy Chest inspection of chest normal Chest: symmetrical chest wall rise; Negative for crepitus Resp normal respiratory effort Auscultation: rhonchi and diminished lung sounds; Negative for rales or wheezes Cardio Rate: tachycardic Rhythm: abnormal rhythm irregularly irregular Heart Sounds: Negative for gallop, murmur or rub GI Inspection: abdominal distention Palpation: soft; Negative for tender, guarding or rebound tenderness present Extremity normal to inspection General Extremity: edema; Negative for clubbing or cyanosis Skin Skin Narrative: No change from previous Neuro oriented x3, CN's II-XII intact bilaterally and moves all extremities Psych Activity / Motor Behavior: fidgetting Mood & Affect: anxious Charges/Coding Visit Charges Inpatient E&M: 52793 Subs Hosp L3
--- NOTE | 2021-03-15 10:24 | CASEMGMT ---
Addendum entered by Mary Snell 03/15/21 11:03: SW called Emily([phone]), in order to change pt's pickup location, we need to confirm his chair time w/Emmanuel and then let Emily know the chair time and the new pickup location. MJ called Emmanuel([phone]), confirmed pt's chair time is still T,Th,Sat 5:15am. MJ will continue to follow. SKIP Trevizo Addendum entered by Mary Snell 03/15/21 10:55: Serene from [facility] called this SW back. She states that they are set for pt to come as long as he has signed the lease with Amor from [facility]. As per Amor, pt did sign the paperwork yesterday, SW explained this to Serene. She states as long as pt is a one person assist they would be able to take him right from the hospital. She states they would just need a list of meds and scripts for any new meds pt may need. SW explained that this would be part of the discharge paperwork. MJ also explained that [facility] will need to be changed to pick pt up at [facility]. SW will continue to follow, will send updated PT/OT to [facility] for them to review to see if they think pt can go to [facility] from the hospital. SKIP Trevizo Original Note: MJ participated in ICU rounds this morning. As per physician yesterday it is anticipated pt will need to go to a SNF from here. SW spoke w/pt this morning in room, pt is about to start dialysis. SW spoke w/pt about anticipated plan for discharge from the hospital. SW spoke w/pt about going to SNF from here. Pt states he is supposed to go to [facility] from here, he just needs assist in getting his belongings and scooter from his friend's home to the assisted living. Pt does confirm he is to go to the assisted living and not the independent living. Pt states he signed all the papers. SW explained that we will need to see if he is moving well enough to go straight to the assisted living, or if he may need to go to a correction first. Pt states he can go to the assisted living, he states they cook meals for us and everything over there. SW acknowledged what pt said, explained to him that he needs to be able to get up on his own and be able to complete his ADLs on his own in order to go to [facility]. SW explained that we can see how it goes when he gets up with therapy, and then see what [facility] says also. Pt states understanding. Pt normally has [facility] take him to dialysis, and he states will need to change the pickup location. Pt's dialysis is Friday, , Friday at 5:15am. SW called [facility]. They do have pt on the list for [facility], however the director of patient safety is not there today for SW to inquire in regard to if pt would be able to go there straight from the hospital, and what criteria would need to be met in order for this to happen. Message left for her to call this SW back. SKIP Trevizo
[2021-03-15] MEDS: Metoprolol Tartrate 5 MG/5 ML Vial IV (11:34)
--- NOTE | 2021-03-15 12:04 | PN.RENAL_ITS ---
Subjective Subjective seen on dialysis, tolerating 1.8L fluid removal so far. NG to suction. No flatus or BM so far. Hungry Objective Data Objective Data Vital Signs: Vital Signs Temp Pulse Resp BP Pulse Ox 98.6 F 124 H 22 H 123/78 H 99 03/15/21 04:00 03/15/21 11:34 03/15/21 10:47 03/15/21 11:34 03/15/21 07:01 Oxygen Flow Rate (L/min) 2 Oxygen Delivery Method Nasal Cannula Weight: 90.1 kg Body Mass Index (BMI) 28.8 Intake & Output: Intake and Output for Last 24 Hours 03/13/21 03/14/21 03/15/21 23:59 23:59 23:59 Intake Total 3434.78 / 3588.08 1888.89 / 1905.59 578.36 / 578.36 Output Total 1600 / 1750 2075 / 2075 850 / 850 Balance 1834.78 / 1838.08 -186.11 / -169.41 -271.64 / -271.64 Lab / Micro Data Result Diagrams: 03/16/21 04:00 03/16/21 04:00 Labs: Laboratory Results - last 24 hr 03/14/21 04:00: Diff Path Review Not Reportable 03/15/21 03:45: WBC 15.4 H, RBC 2.48 L, Hgb 7.7 L, Hct 24.1 L, MCV 97.2 H, MCH 31.0, MCHC 32.0, RDW Std Deviation 52.9 H, RDW Coeff of Karl 15.2 H, Plt Count 208, MPV 10.8, Immature Gran % (Auto) 0.600, Neut % (Auto) 95.1 H, Lymph % (Auto) 1.3 L, [place] % (Auto) 2.9, Eos % (Auto) 0.0, Baso % (Auto) 0.1, Absolute Neuts (auto) 14.6 H, Absolute Lymphs (auto) 0.20 L, Nucleated RBC % 0, Differential Comment SCANNED, Hypochromasia 1+ 03/15/21 03:45: Sodium 134 L, Potassium 4.1, Chloride 92 L, Carbon Dioxide 31.0, Anion Gap 11, BUN 50 H, Creatinine 4.01 H, Estim Creat Clear Calc 17.63, Est GFR (MDRD) Af Amer 20 L, Est GFR (MDRD) Non-Af 16 L, BUN/Creatinine Ratio 12.5, Glucose 115 H, Calcium 8.8 Micro: Microbiology 03/12/21 22:30 Blood Culture (Wb) - Line Draw Blood Culture - Preliminary No growth in 48 hours. 03/12/21 20:15 Blood Culture (Wb) - Right Forearm Blood Culture - Preliminary No growth in 48 hours. 03/09/21 18:30 Sputum, Expectorated/Coughed Gram Stain - Final 03/09/21 18:30 Sputum, Expectorated/Coughed Respiratory Culture - Final Stenotrophomonas maltophilia 03/08/21 06:53 Mucosa - Nose Respiratory Panel (PCR) - Final 03/08/21 03:27 Nasal Secretion SARS-CoV-2 Antigen (Rapid) - Final Radiography Diagnostic Testing: Radiology Impression KUB X-Ray 03/15/21 05:45 IMPRESSION: Small bowel obstruction with slight increased size of the small bowel loops in comparison to the prior study suggestive of progression, no evidence of perforation. Electronically Signed: Adrian Anderson MD at 8:57 EDT Tel , Service support , Physical Exam Const alert and oriented x3 Resp Auscultation: rhonchi Cardio Cardio Narrative: afib GI GI Narrative: distended Palpation: soft Neuro Sensorium / Orientation: awake and alert Psych cooperative Assessment & Plan Assessment/Plan (1) End-stage renal disease on hemodialysis: PLAN: dialysis today and TTS (2) Alcoholic cardiomyopathy: (3) History of coronary artery stent placement: (4) SBO (small bowel obstruction): PLAN: ngt to suction (5) Anemia due to chronic illness: PLAN: epo x1 (6) Paroxysmal atrial fibrillation: PLAN: rate better controlled today (7) Nicotine dependence: QUALIFIERS: Nicotine product type: cigarettes Substance use status: uncomplicated Qualified Code(s): F17.210 - Nicotine dependence, cigarettes, uncomplicated (8) Alcohol addiction: QUALIFIERS: Substance use status: other alcohol-induced disorder Qualified Code(s): F10.288 - Alcohol dependence with other alcohol-induced disor edilson
[2021-03-15] MEDS: Epoetin Alfa epbx 10,000 UNITS/ML 10000 UNIT IV (13:15)
--- NOTE | 2021-03-15 14:17 | DIALYSIS ---
Pt tolerated 3.25hr HD tx well. Net UF -1800ml. Received 10,000 units Retacrit per order. See flow record for tx data.
--- NOTE | 2021-03-15 14:25 | PN.HOSP_ITS ---
Subjective Subjective Denies abdominal pain. Anxious to NGT out. Objective Data Objective Data Vital Signs: Vital Signs Temp Pulse Resp BP Pulse Ox 36.6 C 125 H 18 132/83 H 100 03/15/21 14:00 03/15/21 14:00 03/15/21 14:00 03/15/21 14:00 03/15/21 13:00 Oxygen Flow Rate (L/min) 2 Oxygen Delivery Method Nasal Cannula Weight: 90.1 kg Body Mass Index (BMI) 28.8 Intake & Output: Intake and Output for Last 24 Hours 03/13/21 03/14/21 03/15/21 23:59 23:59 23:59 Intake Total 3434.78 / 3588.08 1888.89 / 1905.59 578.36 / 578.36 Output Total 1600 / 1750 2075 / 2075 2650 / 2650 Balance 1834.78 / 1838.08 -186.11 / -169.41 -2071.64 / -2071.64 Lab / Micro Data Result Diagrams: 03/15/21 03:45 03/15/21 03:45 Labs: Laboratory Results - last 24 hr 03/15/21 03:45: WBC 15.4 H, RBC 2.48 L, Hgb 7.7 L, Hct 24.1 L, MCV 97.2 H, MCH 31.0, MCHC 32.0, RDW Std Deviation 52.9 H, RDW Coeff of Karl 15.2 H, Plt Count 208, MPV 10.8, Immature Gran % (Auto) 0.600, Neut % (Auto) 95.1 H, Lymph % (Auto) 1.3 L, [place] % (Auto) 2.9, Eos % (Auto) 0.0, Baso % (Auto) 0.1, Absolute Neuts (auto) 14.6 H, Absolute Lymphs (auto) 0.20 L, Nucleated RBC % 0, Differential Comment SCANNED, Hypochromasia 1+ 03/15/21 03:45: Sodium 134 L, Potassium 4.1, Chloride 92 L, Carbon Dioxide 31.0, Anion Gap 11, BUN 50 H, Creatinine 4.01 H, Estim Creat Clear Calc 17.63, Est GFR (MDRD) Af Amer 20 L, Est GFR (MDRD) Non-Af 16 L, BUN/Creatinine Ratio 12.5, Glucose 115 H, Calcium 8.8 Micro: Microbiology 03/12/21 22:30 Blood Culture (Wb) - Line Draw Blood Culture - Preliminary No growth in 48 hours. 03/12/21 20:15 Blood Culture (Wb) - Right Forearm Blood Culture - Preliminary No growth in 48 hours. 03/09/21 18:30 Sputum, Expectorated/Coughed Gram Stain - Final 03/09/21 18:30 Sputum, Expectorated/Coughed Respiratory Culture - Final Stenotrophomonas maltophilia 03/08/21 06:53 Mucosa - Nose Respiratory Panel (PCR) - Final 03/08/21 03:27 Nasal Secretion SARS-CoV-2 Antigen (Rapid) - Final Radiography Diagnostic Testing: Radiology Impression KUB X-Ray 03/15/21 05:45 IMPRESSION: Small bowel obstruction with slight increased size of the small bowel loops in comparison to the prior study suggestive of progression, no evidence of perforation. Electronically Signed: Adrian Anderson MD at 8:57 EDT Tel , Service support , Physical Exam Narrative seen on HD Const alert Resp normal respiratory effort, no retractions, no use of accessory muscles and clear to auscultation bilaterally Cardio regular rate, regular rhythm, S1 normal heart sound and S2 normal heart sound GI GI Narrative: distended. Auscultation: hypoactive bowel sounds Extremity normal to inspection Assessment & Plan Assessment/Plan (1) Septic shock: (2) SBO (small bowel obstruction): (3) History of coronary artery stent placement: PLAN: 1. Septic shock 2/2 stenotrophomonas pneumonia weaned off norepinephrine. 2. Stenotrophomonas pneumonia on LVQ QOD 3. SBO NGT to suction GS following NPO 4. NSTEMI s/p PCI to left circ continue ASA, clopidogrel, HIS 5. Afib RVR ongoing on amio gtt, IV metoprolol tartrate 6. ESRD on HD TTSa nephrology following 7. VTE prophylaxis: LMWH Charges/Coding Visit Charges Inpatient E&M: 83152 Subs Hosp L2
[2021-03-15] MEDS: CHLORHEXIDINE GLUC 2% CLOTH 1 EACH TOWELETTE TOPICAL (17:27)
--- NOTE | 2021-03-15 20:12 | NURSING ---
03/12/2021- Patient belongings placed in locked drawer at bedside in ICU room 7 including wallet with CC (Pee), Food card, and Edna's card.
[2021-03-15] MEDS: oxyCODONE 5 MG Tablet PO (22:15)
[2021-03-15] MEDS: 0.9% Saline Lock 10 ML Syringe IV (22:15)
[2021-03-15] MEDS: Sertraline 100 MG Tablet PO (22:16)
[2021-03-15] MEDS: hydrOXYzine PAM 25 MG Capsule 50 MG PO (22:17)
[2021-03-15] MEDS: Atorvastatin Calcium 40 MG Tablet PO (22:17)
[2021-03-16] VITALS (30 sets, daily range): BP systolic 112–141; BP diastolic 65–79; PULSE 83–113; RESP 17–28; TEMP 36.3–36.6; O2SAT 91–100
[2021-03-16] MEDS: CHLORHEXIDINE GLUC 2% CLOTH 1 EACH TOWELETTE TOPICAL (00:30)
[2021-03-16] MEDS: 0.9% Saline Lock 10 ML Syringe IV (03:43)
[2021-03-16] MEDS: Amiodarone 360 MG in Dextrose 5% Viaflo Bag 192.8 ML 16.7 MG CONT INF ×2 (03:45→16:33)
[2021-03-16] MEDS: LORazepam 2 MG/ML Syringe IV (03:57)
[2021-03-16 04:25] LABS: Absolute Lymphocyte Count 0.28 X10^3/uL (0.83-4.51); Absolute Neutrophil Count 10.2 X10^3/uL (2.0-7.7); Basophil# 0.03 X10^3/uL; Basophil% 0.3 % (0-1); Hematocrit 25.1 % (40-54); Hemoglobin 7.8 g/dL (13.0-16.5); Lymphocyte # 0.28 X10^3/ul (0.83-4.51); Lymphocyte % 2.5 % (19-41); Mean Corp Hgb Conc 31.1 g/dL (32-36); Mean Corpuscular Volume 99.6 fL (80-94); Mean Platelet Vol. 10.9 fl (6.2-12.0); Monocyte# 0.47 X10^3/uL; Monocyte% 4.3 % (0-10); NRBC Flagged by Analyzer 0 % (0-5); Neutrophil # 10.15 X10^3/uL (2.7-7.7); POSITIVE DIFFERENTIAL YES; Platelet Count 199 K/mm3 (150-450); RBC Distribution Width CV 15.7 % (11.6-14.6); RBC Distribution Width SD 55.8 fl (35.1-43.9); Red Blood Count 2.52 M/mm3 (4.6-6.2)
[2021-03-16 04:39] LABS: Anion Gap 9 (5-15); BUN 24 mg/dL (7-18); BUN/Creat Ratio 9.8 RATIO (10-20); Calcium,Total 8.4 mg/dL (8.5-10.1); Chloride 95 mmol/L (98-107); Creatinine, Serum 2.44 mg/dL (0.70-1.30); EST Glomerular Filtration Rate 29 mL/min (>60); Est Glom Filt Rate - Afr Amer 35 mL/min (>60); Estimated Creatinine Clearance 28.97 ml/min; Glucose 108 mg/dL (74-106); Potassium 3.6 mmol/L (3.5-5.1); Sodium Level 134 mmol/L (136-145)
[2021-03-16 04:52] LABS: Differential Indicated SCAN CRITERIA MET
[2021-03-16 05:13] LABS: Differential Comment SCANNED
[2021-03-16 05:14] LABS: Anisocytosis RARE; Hypochromasia 2+; Macrocytosis RARE
--- NOTE | 2021-03-16 05:40 | RAD_ITS ---
INDICATION: sbo -- portable EXAMINATION/TECHNIQUE: X-RAY - XR Abdomen 1 View COMPARISON: 03/15/2021 at 6:00 AM FINDINGS: Nasogastric tube visualized with tip in the stomach. EKG leads visualized superimposed over the chest and abdomen. BOWEL GAS PATTERN: Air-filled loops of small bowel visualized demonstrating decreased distention in comparison to the prior study. FREE AIR: Not assessed on a single supine view. ORGANOMEGALY: Not seen. CALCIFICATIONS: No abnormal calcifications observed. LOWER CHEST: Linear calcification visualized superimposed over the left lower lung field hemidiaphragm could represent pleural calcifications over. Prominence of the bronchovascular interstitial lung markings bilaterally with cardiomegaly and the configuration of the left costophrenic angle demonstrate no change. BONES AND SOFT TISSUES: Degenerative bone changes seen, no acute osseous abnormality. RAD/Abdomen Single View (Portable) IMPRESSION: Air-filled loops of small bowel visualized demonstrate decreased distention in comparison to the prior study. Electronically Signed: Adrian Anderson MD at 8:00 EDT Tel , Service support ,
[2021-03-16] MEDS: metroNIDAZOLE 500 MG/100 ML BAG 100 MG IV ×3 (06:00→22:29)
[2021-03-16] MEDS: Ipratropium/Albuterol Sulfate 3 ML AMPUL.NEB INHALATION ×4 (07:04→21:01)
--- NOTE | 2021-03-16 07:53 | PCM.PN.SRG ---
Subjective Subjective Patient admits to flatus patient states he is passing some flatus. Patient's KUB does show improvement of the dilated small bowel. Patient also has stool in the rectum per KUB. Objective Data Objective Data Vital Signs: Vital Signs Temp Pulse Resp BP Pulse Ox 97.4 F L 98 19 H 128/67 H 100 03/16/21 04:00 03/16/21 07:44 03/16/21 07:04 03/16/21 07:00 03/16/21 07:04 Oxygen Flow Rate (L/min) 2 Oxygen Delivery Method Nasal Cannula Weight: 173 lb 1.006 oz Body Mass Index (BMI) 28.8 Intake & Output: Intake and Output for Last 24 Hours 03/14/21 03/15/21 03/16/21 23:59 23:59 23:59 Intake Total 1888.89 / 1905.59 1369.94 / 1521.60 516.87 / 516.87 Output Total 2075 / 2075 5150 / 5200 200 / 200 Balance -186.11 / -169.41 -3780.06 / -3678.40 316.87 / 316.87 Lab / Micro Data Result Diagrams: 03/16/21 04:00 03/16/21 04:00 Labs: Laboratory Results - last 24 hr 03/16/21 04:00: WBC 11.0, RBC 2.52 L, Hgb 7.8 L, Hct 25.1 L, MCV 99.6 H, MCH 31.0, MCHC 31.1 L, RDW Std Deviation 55.8 H, RDW Coeff of Karl 15.7 H, Plt Count 199, MPV 10.9, Immature Gran % (Auto) 0.900, Neut % (Auto) 92.0 H, Lymph % (Auto) 2.5 L, [place] % (Auto) 4.3, Eos % (Auto) 0.0, Baso % (Auto) 0.3, Absolute Neuts (auto) 10.2 H, Absolute Lymphs (auto) 0.28 L, Nucleated RBC % 0, Differential Comment SCANNED, Hypochromasia 2+, Anisocytosis RARE, Macrocytosis RARE 03/16/21 04:00: Sodium 134 L, Potassium 3.6, Chloride 95 L, Carbon Dioxide 30.0, Anion Gap 9, BUN 24 H, Creatinine 2.44 H, Estim Creat Clear Calc 28.97, Est GFR (MDRD) Af Amer 35 L, Est GFR (MDRD) Non-Af 29 L, BUN/Creatinine Ratio 9.8 L, Glucose 108 H, Calcium 8.4 L Micro: Microbiology 03/12/21 22:30 Blood Culture (Wb) - Line Draw Blood Culture - Preliminary No growth in 48 hours. 03/12/21 20:15 Blood Culture (Wb) - Right Forearm Blood Culture - Preliminary No growth in 48 hours. 03/09/21 18:30 Sputum, Expectorated/Coughed Gram Stain - Final 03/09/21 18:30 Sputum, Expectorated/Coughed Respiratory Culture - Final Stenotrophomonas maltophilia 03/08/21 06:53 Mucosa - Nose Respiratory Panel (PCR) - Final 03/08/21 03:27 Nasal Secretion SARS-CoV-2 Antigen (Rapid) - Final Radiography Diagnostic Testing: Radiology Impression KUB X-Ray 03/15/21 05:45 IMPRESSION: Small bowel obstruction with slight increased size of the small bowel loops in comparison to the prior study suggestive of progression, no evidence of perforation. Electronically Signed: Adrian Anderson MD at 8:57 EDT Tel , Service support , Physical Exam Narrative General: Patient is cooperative alert and oriented. HEENT: NG in place mostly clearish likely ice chips only 100 or less and canister Respiratory: Audible wheezing Abdomen: Soft, nontender, nondistended, no peritoneal signs. Right groin tender to even light palpation (patient states has been like that all of his life.) No obvious incarcerated hernia on exam Assessment & Plan Assessment/Plan (1) SBO (small bowel obstruction): (2) History of coronary artery stent placement: PLAN: Patient is KUB does look much improved. Will give patient an enema. He still had 1300 cored out from his NG could still be at high risk for p.o. contrast. We will double check drainage amount at noon to see if output has decreased would maybe give him the p.o. contrast later today. Antibiotics per primary. Olamide Arreguin M.D. Pager: [phone] [facility] [address] [place] [address], [facility], [address] [place] [address] Office: [phone] Charges/Coding Visit Charges Inpatient E&M: 03335 Subs Hosp L2
--- NOTE | 2021-03-16 08:17 | PN.CARD_ITS ---
Subjective Subjective The patient looks better and states he feels better today. He states he is passing gas . Objective Data Vital Signs: Vital Signs Temp Pulse Resp BP Pulse Ox 97.4 F L 98 19 H 128/67 H 100 03/16/21 04:00 03/16/21 07:44 03/16/21 07:04 03/16/21 07:00 03/16/21 07:04 Oxygen Flow Rate (L/min) 2 Oxygen Delivery Method Nasal Cannula Weight: 173 lb 1.006 oz Body Mass Index (BMI) 28.8 Intake & Output: Intake and Output for Last 24 Hours 03/14/21 03/15/21 03/16/21 23:59 23:59 23:59 Intake Total 1888.89 / 1905.59 1369.94 / 1521.60 516.87 / 516.87 Output Total 2075 / 2075 5150 / 5200 200 / 200 Balance -186.11 / -169.41 -3780.06 / -3678.40 316.87 / 316.87 Lab / Micro Data Result Diagrams: 03/16/21 04:00 03/16/21 04:00 Labs: Laboratory Results - last 24 hr 03/16/21 04:00: WBC 11.0, RBC 2.52 L, Hgb 7.8 L, Hct 25.1 L, MCV 99.6 H, MCH 31. 0, MCHC 31.1 L, RDW Std Deviation 55.8 H, RDW Coeff of Karl 15.7 H, Plt Count 199, MPV 10.9, Immature Gran % (Auto) 0.900, Neut % (Auto) 92.0 H, Lymph % (Auto) 2.5 L, [place] % (Auto) 4.3, Eos % (Auto) 0.0, Baso % (Auto) 0.3, Absolute Neuts (auto) 10.2 H, Absolute Lymphs (auto) 0.28 L, Nucleated RBC % 0, Differential Comment SCANNED, Hypochromasia 2+, Anisocytosis RARE, Macrocytosis RARE 03/16/21 04:00: Sodium 134 L, Potassium 3.6, Chloride 95 L, Carbon Dioxide 30.0, Anion Gap 9, BUN 24 H, Creatinine 2.44 H, Estim Creat Clear Calc 28.97, Est GFR (MDRD) Af Amer 35 L, Est GFR (MDRD) Non-Af 29 L, BUN/Creatinine Ratio 9.8 L, Glucose 108 H, Calcium 8.4 L Micro: Microbiology 03/12/21 22:30 Blood Culture (Wb) - Line Draw Blood Culture - Preliminary No growth in 48 hours. 03/12/21 20:15 Blood Culture (Wb) - Right Forearm Blood Culture - Preliminary No growth in 48 hours. Cardiology Labs/Tests 03/16/21 04:00: WBC 11.0, RBC 2.52 L, Hgb 7.8 L, Hct 25.1 L, MCV 99.6 H, MCH 31.0, MCHC 31.1 L, Plt Count 199, MPV 10.9, Immature Gran % (Auto) 0.900, Neut % (Auto) 92.0 H, Lymph % (Auto) 2.5 L, [place] % (Auto) 4.3, Eos % (Auto) 0.0, Baso % (Auto) 0.3, Absolute Neuts (auto) 10.2 H, Nucleated RBC % 0 03/16/21 04:00: Sodium 134 L, Potassium 3.6, Chloride 95 L, Carbon Dioxide 30.0, Anion Gap 9, BUN 24 H, Creatinine 2.44 H, Est GFR (MDRD) Af Amer 35 L, Est GFR (MDRD) Non-Af 29 L, BUN/Creatinine Ratio 9.8 L, Glucose 108 H, Calcium 8.4 L Rhythm: Atrial fibrillation Radiography Diagnostic Testing: Radiology Impression KUB X-Ray 03/15/21 05:45 IMPRESSION: Small bowel obstruction with slight increased size of the small bowel loops in comparison to the prior study suggestive of progression, no evidence of perforation. Electronically Signed: Adrian Anderson MD at 8:57 EDT Tel , Service support , KUB X-Ray 03/16/21 05:40 IMPRESSION: Air-filled loops of small bowel visualized demonstrate decreased distention in comparison to the prior study. Electronically Signed: Adrian Anderson MD at 8:00 EDT Tel , Service support , Physical Exam Const alert, oriented x3 and no apparent distress General Appearance: cooperative Orientation / Consciousness: awake HEENT normocephalic, head/scalp atraumatic and hearing grossly normal bilaterally Eyes PERRL, EOMs intact bilaterally and conjunctivae normal Neck full ROM, supple and no carotid bruits Neck Narrative: JVD is difficult to assess d/t Rt IJ central line General: normal visual inspection Resp Auscultation: clear to auscultation bilaterally and rhonchi throughout Cardio S1 normal heart sound and S2 normal heart sound Jugular Venous Distention: JVD Palpation: normal PMI Rate: tachycardic Rhythm: abnormal rhythm irregularly irregular Heart Sounds: S1 normal, S2 normal and murmur GI GI Narrative: Hypoactive bowel sounds Auscultation: hypoactive bowel sounds Palpation: soft Extremity no pedal edema Extremity Narrative: Left upper extremity/arm: AV fistula Skin no rashes or lesions noted Neuro oriented x3, CN's II-XII intact bilaterally and moves all extremities Neuro Narrative: Engages in conversation appropriately Psych mental status grossly normal Appearance: grossly normal and appropriate Assessment & Plan Assessment/Plan (1) Elevated troponin: PLAN: The patient had findings concerning for an underlying non-ST segment elevation PA. The patient has underlying CAD. He has undergone noninvasive and invasive evaluation as noted above. He underwent LCx PTCA/bare-metal stent. He will continue medical therapy as best as tolerated. Ideally this would include agents such as his aspirin and antiplatelet therapy with clopidogrel/Plavix. Hopefully as his blood pressure improves/stabilizes he will be able to alter his medication regimen to include oral beta-blockers, etc. He will also continue lipid-lowering therapy/statin therapy as best as possible. (2) Alcoholic cardiomyopathy: PLAN: He does have diminished LV systolic function/LVEF. Ideally he would be on beta-paddy therapy and afterload reducing therapy taking into consideration his renal insufficiency which may not include agents such as JÚNIOR inhibitor's or ARB use but may include agents such as nitrates and hydralazine. These medications will also have to be adjusted around his hemodynamics. He needs to refrain from alcohol use. His LV function can be followed over time with echocardiographic studies. Hopefully with better rate control dialysis can better assist with volume control. (3) Paroxysmal atrial fibrillation: PLAN: He continues to have atrial fibrillation with rate into the 120s. He is on medical management at this time to assist with his rate and rhythm control. This includes IV amiodarone. He has been placed back on IV diltiazem as his blood pressure is improved. Hopefully as his small bowel obstruction improves he will be able to be altered to oral agents which would include rate control, antiarrhythmic therapy, and systemic oral anticoagulant therapy. In the interim he is continuing subcutaneous enoxaparin as anticoagulant agents adjusted around his renal insufficiency. (4) Hyperlipidemia: QUALIFIERS: Hyperlipidemia type: unspecified Qualified Code(s): E78.5 - Hyperlipidemia, unspecified PLAN: He will continue medical management. (5) Benign hypertension: PLAN: His blood pressure has improved. Hopefully this will allow adjustment of his medications. . (6) ESRD (end stage renal disease) on dialysis: PLAN: He is going to continue under nephrology for his dialysis therapy. Hopefully this continues to regulate fluid volume. (7) SBO (small bowel obstruction): PLAN: This is being managed as per general surgery and hospitalist and intensive care unit. His medications are being adjusted to try and accommodate for the situation. (8) Sepsis: PLAN: The patient has been diagnosed with sepsis. He has continued medical management which has included antibiotic therapy. He will continue to be followed by internal medicine and pulmonology/critical care medicine. Addt'l Comments The patient's case was discussed and reviewed with the patient. This note was generated using a voice recognition system and there may be incorrect words, spelling or punctuation that were not noted when reviewing the office note prior to saving.
[2021-03-16] MEDS: Multivitamins,Ther W-Minerals Tablet 1 TABLET PO (08:28)
[2021-03-16] MEDS: Aspirin E.C. 81 MG Tablet PO (08:28)
--- NOTE | 2021-03-16 08:54 | PCM.PN.INT ---
Assessment & Plan Assessment/Plan (1) Septic shock: (2) SBO (small bowel obstruction): (3) Bronchiectasis: QUALIFIERS: Bronchiectasis type: uncomplicated Qualified Code(s): J47.9 - Bronchiectasis, uncomplicated (4) ESRD (end stage renal disease) on dialysis: (5) Chronic obstructive pulmonary disease: QUALIFIERS: COPD type: chronic bronchitis Chronic bronchitis type: mucopurulent Qualified Code(s): J41.1 - Mucopurulent chronic bronchitis PLAN: RECOMMENDATIONS: 1. Continue Levaquin therapy for total of 10 days 2. Monitor QTc. Potentially transition to Bactrim if QT prolongs 3. Amiodarone per cardiology 4. Hemodialysis per nephrology. Recommend volume removal if possible 5. Wean oxygen as tolerated 6. Discussed with cardiology. Possible transition to p.o. Cardizem with discontinuation of drip 7. If patient able to tolerate p.o. Cardizem, potential transfer from the intensive care unit later today 8. Timing of contrast abdominal study per surgery IMPRESSIONS: 1. Septic shock secondary to probable stenotrophomonas Patient with positive sputum culture for stenotrophomonas on presentation. This would only be sensitive to Levaquin or Bactrim classically. Clinical suspicion that decompensation is related to stenotrophomonas. Patient has been placed on Levaquin, as this has better penetration, but will need to follow QTC closely, especially in the setting of amiodarone. Patient could be transitioned to Bactrim if needed for QT. Could consider an infectious disease consult for alternative options. Patient currently off of pressor therapy and fevers have resolved. Anticipate 10-day course of antibiotics total. 2. Small bowel obstruction secondary to right inguinal hernia Conservative therapy at this time with an NG in place. Patient appears to be tolerating this well. Morning KUB is showing some improvement. Surgery is following. Defer to them on timing for intervention. Would like to transition to p.o. Cardizem if possible for rate control 3. Acute on chronic hypoxic respiratory failure secondary to COPD/bronchiectasis exacerbation secondary to stenotrophomonas Patient had a walking oximetry completed in December that showed no need for supplemental oxygen, but had limited mobility. Patient has required BiPAP rescue during the hospitalization. Clinical suspicion for stenotrophomonas exacerbation of COPD and bronchiectasis. Possibly transition to p.o. steroids once problem #2 is resolved for 10 days total, which ever is first. Continue with bronchodilators. Patient will need a walking oximetry prior to discharge. 4. End-stage renal disease/hypertension/history of A. fib/non-ST elevation AR/anxiety/depression/history of alcohol abuse Complicates care, management, recovery and prognosis. Defer to cardiology and nephrology on management of NSTEMI and ESRD. Patient has not required any as needed Ativan, so CIWA protocol will be discontinued. Patient unable to tolerate volume removal previously. Patient would be due for dialysis tomorrow by routine schedule. Subjective Subjective The patient did well overnight. No acute issues were reported. Patient feels subjectively slightly improved. Nursing reports decreased NG output. Patient has remained on a Cardizem drip overnight and tolerated it hemodynamically. Objective Data Objective Data Vital Signs: Vital Signs Temp Pulse Resp BP Pulse Ox 36.3 C L 98 19 H 128/67 H 100 03/16/21 04:00 03/16/21 07:44 03/16/21 07:04 03/16/21 07:00 03/16/21 07:04 Oxygen Flow Rate (L/min) 2 Oxygen Delivery Method Nasal Cannula Weight: 78.5 kg Body Mass Index (BMI) 28.8 Intake & Output: Intake and Output for Last 24 Hours 03/14/21 03/15/21 03/16/21 23:59 23:59 23:59 Intake Total 1888.89 / 1905.59 1369.94 / 1521.60 613.37 / 613.37 Output Total 2075 / 2075 5150 / 5200 200 / 200 Balance -186.11 / -169.41 -3780.06 / -3678.40 413.37 / 413.37 Lab / Micro Data Result Diagrams: 03/16/21 04:00 03/16/21 04:00 Labs: Laboratory Results - last 24 hr 03/16/21 04:00: WBC 11.0, RBC 2.52 L, Hgb 7.8 L, Hct 25.1 L, MCV 99.6 H, MCH 31.0, MCHC 31.1 L, RDW Std Deviation 55.8 H, RDW Coeff of Karl 15.7 H, Plt Count 199, MPV 10.9, Immature Gran % (Auto) 0.900, Neut % (Auto) 92.0 H, Lymph % (Auto) 2.5 L, [place] % (Auto) 4.3, Eos % (Auto) 0.0, Baso % (Auto) 0.3, Absolute Neuts (auto) 10.2 H, Absolute Lymphs (auto) 0.28 L, Nucleated RBC % 0, Differential Comment SCANNED, Hypochromasia 2+, Anisocytosis RARE, Macrocytosis RARE 03/16/21 04:00: Sodium 134 L, Potassium 3.6, Chloride 95 L, Carbon Dioxide 30.0, Anion Gap 9, BUN 24 H, Creatinine 2.44 H, Estim Creat Clear Calc 28.97, Est GFR (MDRD) Af Amer 35 L, Est GFR (MDRD) Non-Af 29 L, BUN/Creatinine Ratio 9.8 L, Glucose 108 H, Calcium 8.4 L Micro: Microbiology 03/12/21 22:30 Blood Culture (Wb) - Line Draw Blood Culture - Preliminary No growth in 48 hours. 03/12/21 20:15 Blood Culture (Wb) - Right Forearm Blood Culture - Preliminary No growth in 48 hours. 03/09/21 18:30 Sputum, Expectorated/Coughed Gram Stain - Final 03/09/21 18:30 Sputum, Expectorated/Coughed Respiratory Culture - Final Stenotrophomonas maltophilia 03/08/21 06:53 Mucosa - Nose Respiratory Panel (PCR) - Final 03/08/21 03:27 Nasal Secretion SARS-CoV-2 Antigen (Rapid) - Final Radiography Diagnostic Testing: Radiology Impression KUB X-Ray 03/15/21 05:45 IMPRESSION: Small bowel obstruction with slight increased size of the small bowel loops in comparison to the prior study suggestive of progression, no evidence of perforation. Electronically Signed: Adrian Anderson MD at 8:57 EDT Tel , Service support , KUB X-Ray 03/16/21 05:40 IMPRESSION: Air-filled loops of small bowel visualized demonstrate decreased distention in comparison to the prior study. Electronically Signed: Adrian Anderson MD at 8:00 EDT Tel , Service support , Physical Exam Const alert and oriented x3 General Appearance: cooperative and comfortable HEENT normocephalic Eyes PERRL and conjunctivae normal; Negative for EOMs intact bilaterally Neck full ROM, No nuchal rigidity and no lymphadenopathy Chest inspection of chest normal Chest: symmetrical chest wall rise; Negative for crepitus Resp normal respiratory effort Auscultation: rhonchi and diminished lung sounds; Negative for rales or wheezes Cardio Rate: tachycardic Rhythm: abnormal rhythm irregularly irregular Heart Sounds: Negative for gallop, murmur or rub GI GI Narrative: Appears to be improving. Not as distended with increased bowel sounds. Inspection: abdominal distention Palpation: soft; Negative for tender, guarding or rebound tenderness present Extremity normal to inspection General Extremity: edema; Negative for clubbing or cyanosis Skin Skin Narrative: No change from previous Neuro oriented x3, CN's II-XII intact bilaterally and moves all extremities Psych Appearance: disheveled Activity / Motor Behavior: fidgetting Mood & Affect: anxious Charges/Coding Visit Charges Inpatient E&M: 27608 Subs Hosp L3
[2021-03-16] MEDS: Loratadine 10 MG Tablet PO (10:44)
[2021-03-16] MEDS: Docusate Sodium 100 MG/10 ML UDC GT ×2 (10:44→21:20)
[2021-03-16] MEDS: Tamsulosin HCl 0.4 MG Capsule PO (10:44)
[2021-03-16] MEDS: Gabapentin 100 MG Capsule PO ×2 (10:45→21:20)
[2021-03-16] MEDS: Metoprolol Tartrate 25 MG Tablet PO ×2 (10:45→21:20)
[2021-03-16] MEDS: Enoxaparin 30 MG/0.3 ML Syringe SC (10:45)
[2021-03-16] MEDS: Clopidogrel Bisulfate 75 MG Tablet PO (10:45)
--- NOTE | 2021-03-16 12:17 | PCM.PN.HOSP ---
Subjective Subjective Feels well. NGT clamped. +Flatus. Objective Data Objective Data Vital Signs: Vital Signs Temp Pulse Resp BP Pulse Ox 36.5 C L 102 H 19 H 119/69 94 03/16/21 08:00 03/16/21 10:45 03/16/21 10:30 03/16/21 10:45 03/16/21 10:30 Oxygen Flow Rate (L/min) 1 Oxygen Delivery Method Nasal Cannula Weight: 78.5 kg Body Mass Index (BMI) 28.8 Intake & Output: Intake and Output for Last 24 Hours 03/14/21 03/15/21 03/16/21 23:59 23:59 23:59 Intake Total 1888.89 / 1905.59 1369.94 / 1521.60 717.17 / 717.17 Output Total 2075 / 2075 5150 / 5200 200 / 200 Balance -186.11 / -169.41 -3780.06 / -3678.40 517.17 / 517.17 Lab / Micro Data Result Diagrams: 03/16/21 04:00 03/16/21 04:00 Labs: Laboratory Results - last 24 hr 03/16/21 04:00: WBC 11.0, RBC 2.52 L, Hgb 7.8 L, Hct 25.1 L, MCV 99.6 H, MCH 31.0, MCHC 31.1 L, RDW Std Deviation 55.8 H, RDW Coeff of Karl 15.7 H, Plt Count 199, MPV 10.9, Immature Gran % (Auto) 0.900, Neut % (Auto) 92.0 H, Lymph % (Auto) 2.5 L, [place] % (Auto) 4.3, Eos % (Auto) 0.0, Baso % (Auto) 0.3, Absolute Neuts (auto) 10.2 H, Absolute Lymphs (auto) 0.28 L, Nucleated RBC % 0, Differential Comment SCANNED, Hypochromasia 2+, Anisocytosis RARE, Macrocytosis RARE 03/16/21 04:00: Sodium 134 L, Potassium 3.6, Chloride 95 L, Carbon Dioxide 30.0, Anion Gap 9, BUN 24 H, Creatinine 2.44 H, Estim Creat Clear Calc 28.97, Est GFR (MDRD) Af Amer 35 L, Est GFR (MDRD) Non-Af 29 L, BUN/Creatinine Ratio 9.8 L, Glucose 108 H, Calcium 8.4 L Micro: Microbiology 03/12/21 22:30 Blood Culture (Wb) - Line Draw Blood Culture - Preliminary No growth in 48 hours. 03/12/21 20:15 Blood Culture (Wb) - Right Forearm Blood Culture - Preliminary No growth in 48 hours. 03/09/21 18:30 Sputum, Expectorated/Coughed Gram Stain - Final 03/09/21 18:30 Sputum, Expectorated/Coughed Respiratory Culture - Final Stenotrophomonas maltophilia 03/08/21 06:53 Mucosa - Nose Respiratory Panel (PCR) - Final 03/08/21 03:27 Nasal Secretion SARS-CoV-2 Antigen (Rapid) - Final Radiography Diagnostic Testing: Radiology Impression KUB X-Ray 03/16/21 05:40 IMPRESSION: Air-filled loops of small bowel visualized demonstrate decreased distention in comparison to the prior study. Electronically Signed: Adrian Anderson MD at 8:00 EDT Tel , Service support , Physical Exam Const alert and no apparent distress Neck no lymphadenopathy Resp normal respiratory effort, no retractions, no use of accessory muscles and clear to auscultation bilaterally Cardio Cardio Narrative: tachycardic. GI normal to inspection, nondistended, normoactive bowel sounds, non-tender and non-distended Extremity normal to inspection Neuro Sensorium / Orientation: awake and alert Assessment & Plan Assessment/Plan (1) Septic shock: (2) SBO (small bowel obstruction): (3) History of coronary artery stent placement: PLAN: 1. Septic shock 2/2 stenotrophomonas pneumonia weaned off norepinephrine. 2. Stenotrophomonas pneumonia on LVQ QOD 3. SBO NGT clamped GS following NPO 4. NSTEMI s/p PCI to left circ continue ASA, clopidogrel, HIS 5. Afib RVR ongoing on amio gtt, dilt gtt transition to PO when able 6. ESRD on HD TTSa nephrology following 7. VTE prophylaxis: LMWH TF to PCU DW Dr. Machado. Charges/Coding Visit Charges Inpatient E&M: 93313 Subs Hosp L2
--- NOTE | 2021-03-16 14:00 | RAD_ITS ---
CLINICAL HISTORY: Male, 65 years old. Abdominal pain PROCEDURE: Small bowel follow-through TECHNIQUE: (All elements of maximal sterile barrier technique followed, including US elements as applicable) Water-soluble contrast was injected into the patient''s nasogastric tube and multiple images of the abdomen were obtained. Next FINDINGS: There are multiple loops of moderately dilated small bowel primarily in the left upper quadrant. On the 6 hour image, contrast is seen within the ileum, 17 hour image, contrast is seen within the colon. Findings are consistent with a mild partial small bowel obstruction. RAD/Small Bowel Series Only IMPRESSION: Mild partial small bowel obstruction. Electronically Signed: Francisco Begum MD at 13:46 EDT Tel , Service support ,
--- NOTE | 2021-03-16 15:52 | CASEMGMT ---
SW participated in ICU rounds. Pt mentioned that when he is discharged he will go home, and drive his scooter to [facility]. SW called [facility] this afternoon to inquire if they would be able to roll picker pt's scooter, if he is truly able to discharge from here to [facility]. Serene is gone for the day, SW will follow up w/Tania on Friday. SW will fax PT/OT to [facility] and speak w/them about pt's scooter. Transport with [facility] will also need changed for pt's dialysis, to his new pickup address--whether that is [facility] or a SNF in the community. SKIP Trevizo
[2021-03-16] MEDS: Atorvastatin Calcium 40 MG Tablet PO (21:20)
[2021-03-16] MEDS: hydrOXYzine PAM 25 MG Capsule 50 MG PO (21:21)
[2021-03-16] MEDS: Sertraline 100 MG Tablet PO (21:21)
[2021-03-17] VITALS (18 sets, daily range): BP systolic 105–127; BP diastolic 61–76; PULSE 72–103; RESP 13–24; TEMP 36.6–36.8; O2SAT 97–100
[2021-03-17] MEDS: Acetaminophen 325 MG Tablet 650 MG PO (01:48)
[2021-03-17] MEDS: oxyCODONE 5 MG Tablet PO (01:48)
[2021-03-17] MEDS: Amiodarone 360 MG in Dextrose 5% Viaflo Bag 192.8 ML 16.7 MG CONT INF (04:08)
[2021-03-17] MEDS: metroNIDAZOLE 500 MG/100 ML BAG 100 MG IV (06:05)
[2021-03-17] MEDS: levoFLOXacin 500 MG Tablet PO (06:07)
[2021-03-17 06:17] LABS: Absolute Lymphocyte Count 0.49 X10^3/uL (0.83-4.51); Absolute Neutrophil Count 8.2 X10^3/uL (2.0-7.7); Basophil# 0.02 X10^3/uL; Basophil% 0.2 % (0-1); Hematocrit 23.9 % (40-54); Hemoglobin 7.5 g/dL (13.0-16.5); Lymphocyte # 0.49 X10^3/ul (0.83-4.51); Lymphocyte % 5.2 % (19-41); Mean Corp Hgb Conc 31.4 g/dL (32-36); Mean Corpuscular Hgb 30.5 pg (27.0-32.0); Mean Corpuscular Volume 97.2 fL (80-94); Mean Platelet Vol. 10.9 fl (6.2-12.0); Monocyte# 0.62 X10^3/uL; Monocyte% 6.5 % (0-10); NRBC Flagged by Analyzer 0 % (0-5); Neutrophil # 8.23 X10^3/uL (2.7-7.7); Neutrophil % 86.6 % (47-70); POSITIVE DIFFERENTIAL YES; Platelet Count 194 K/mm3 (150-450); RBC Distribution Width CV 15.5 % (11.6-14.6); Red Blood Count 2.46 M/mm3 (4.6-6.2); White Blood Count 9.5 K/mm3 (4.4-11.0)
[2021-03-17 06:26] LABS: Differential Indicated SCAN CRITERIA MET
[2021-03-17 06:46] LABS: Anion Gap 9 (5-15); BUN 36 mg/dL (7-18); BUN/Creat Ratio 10.8 RATIO (10-20); Calcium,Total 8.3 mg/dL (8.5-10.1); Chloride 97 mmol/L (98-107); Creatinine, Serum 3.32 mg/dL (0.70-1.30); EST Glomerular Filtration Rate 20 mL/min (>60); Est Glom Filt Rate - Afr Amer 24 mL/min (>60); Estimated Creatinine Clearance 21.29 ml/min; Glucose 114 mg/dL (74-106); Potassium 3.4 mmol/L (3.5-5.1); Sodium Level 133 mmol/L (136-145)
[2021-03-17 07:03] LABS: Anisocytosis RARE; Differential Comment SCANNED; Hypochromasia 2+; Microcytosis RARE
[2021-03-17] MEDS: Ipratropium/Albuterol Sulfate 3 ML AMPUL.NEB INHALATION (07:09)
--- NOTE | 2021-03-17 07:51 | PCM.PN.SRG ---
Subjective Subjective Patient states he wants to go home today. Patient's had multiple bowel movement after the p.o. contrast. KUB shows contrast is mostly out of his system and some in the rectum. Objective Data Objective Data Vital Signs: Vital Signs Temp Pulse Resp BP Pulse Ox 97.9 F 77 15 121/71 H 100 03/17/21 00:00 03/17/21 07:01 03/17/21 07:00 03/17/21 07:00 03/17/21 07:00 Oxygen Flow Rate (L/min) 3 Oxygen Delivery Method Nasal Cannula Weight: 173 lb 15.115 oz Body Mass Index (BMI) 28.8 Intake & Output: Intake and Output for Last 24 Hours 03/15/21 03/16/21 03/17/21 23:59 23:59 23:59 Intake Total 1369.94 / 1521.60 1803.01 / 1864.71 569.60 / 569.60 Output Total 5150 / 5200 300 / 500 200 / 200 Balance -3780.06 / -3678.40 1503.01 / 1364.71 369.60 / 369.60 Lab / Micro Data Result Diagrams: 03/17/21 05:31 03/17/21 05:31 Labs: Laboratory Results - last 24 hr 03/17/21 05:31: WBC 9.5, RBC 2.46 L, Hgb 7.5 L, Hct 23.9 L, MCV 97.2 H, MCH 30.5, MCHC 31.4 L, RDW Std Deviation 54.0 H, RDW Coeff of Karl 15.5 H, Plt Count 194, MPV 10.9, Immature Gran % (Auto) 1.500 H, Neut % (Auto) 86.6 H, Lymph % (Auto) 5.2 L, [place] % (Auto) 6.5, Eos % (Auto) 0.0, Baso % (Auto) 0.2, Absolute Neuts (auto) 8.2 H, Absolute Lymphs (auto) 0.49 L, Nucleated RBC % 0, Differential Comment SCANNED, Hypochromasia 2+, Anisocytosis RARE, Microcytosis RARE 03/17/21 05:31: Sodium 133 L, Potassium 3.4 L, Chloride 97 L, Carbon Dioxide 27.0, Anion Gap 9, BUN 36 H, Creatinine 3.32 H, Estim Creat Clear Calc 21.29, Est GFR (MDRD) Af Amer 24 L, Est GFR (MDRD) Non-Af 20 L, BUN/Creatinine Ratio 10.8, Glucose 114 H, Calcium 8.3 L Micro: Microbiology 03/12/21 22:30 Blood Culture (Wb) - Line Draw Blood Culture - Preliminary No growth in 48 hours. 03/12/21 20:15 Blood Culture (Wb) - Right Forearm Blood Culture - Preliminary No growth in 48 hours. 03/09/21 18:30 Sputum, Expectorated/Coughed Gram Stain - Final 03/09/21 18:30 Sputum, Expectorated/Coughed Respiratory Culture - Final Stenotrophomonas maltophilia 03/08/21 06:53 Mucosa - Nose Respiratory Panel (PCR) - Final 03/08/21 03:27 Nasal Secretion SARS-CoV-2 Antigen (Rapid) - Final Radiography Diagnostic Testing: Radiology Impression KUB X-Ray 03/16/21 05:40 IMPRESSION: Air-filled loops of small bowel visualized demonstrate decreased distention in comparison to the prior study. Electronically Signed: Adrian Anderson MD at 8:00 EDT Tel , Service support , Physical Exam Narrative General: Patient is cooperative alert and oriented. HEENT: NG in place?clamped all night minimal output?removed Abdomen: Soft, nontender, nondistended, no peritoneal signs. Right groin tender to even light palpation (patient states has been like that all of his life.) No obvious incarcerated hernia on exam Assessment & Plan Assessment/Plan (1) SBO (small bowel obstruction): (2) History of coronary artery stent placement: PLAN: NG removed okay for clears if tolerates okay for regular diet. Olamide Arreguin M.D. Pager: [phone] [facility] [address] [place] [address], [facility], [address] [place] [id number] Office: [phone] Charges/Coding Visit Charges Inpatient E&M: 16992 Subs Hosp L2
--- NOTE | 2021-03-17 08:21 | PCM.PN.INT ---
Assessment & Plan Assessment/Plan (1) Septic shock: (2) SBO (small bowel obstruction): (3) Bronchiectasis: QUALIFIERS: Bronchiectasis type: uncomplicated Qualified Code(s): J47.9 - Bronchiectasis, uncomplicated (4) ESRD (end stage renal disease) on dialysis: (5) Chronic obstructive pulmonary disease: QUALIFIERS: COPD type: chronic bronchitis Chronic bronchitis type: mucopurulent Qualified Code(s): J41.1 - Mucopurulent chronic bronchitis PLAN: RECOMMENDATIONS: 1. Continue Levaquin therapy for total of 10 days 2. Amiodarone and Cardizem per cardiology 3. Hemodynamically stable on room air. Will sign off from a critical care perspective 4. Hemodialysis per nephrology. Recommend volume removal if possible 5. Patient can follow-up as previously scheduled in the outpatient office. No post hospital follow-up is indicated 6. Okay to discontinue steroids after today IMPRESSIONS: 1. Septic shock secondary to probable stenotrophomonas Patient with positive sputum culture for stenotrophomonas on presentation. This would only be sensitive to Levaquin or Bactrim classically. Clinical suspicion that decompensation is related to stenotrophomonas. Patient has been placed on Levaquin, as this has better penetration, but will need to follow QTC closely, especially in the setting of amiodarone. Patient could be transitioned to Bactrim if needed for QT. Could consider an infectious disease consult for alternative options. Patient currently off of pressor therapy and fevers have resolved. Recommend 10-day course of Levaquin total. Will sign off from a critical care perspective 2. Small bowel obstruction secondary to right inguinal hernia Resolved. Conservative therapy at this time with an NG in place. Patient appears to be tolerating this well. Morning KUB is showing some improvement. Surgery is following. 3. Acute on chronic hypoxic respiratory failure secondary to COPD/bronchiectasis exacerbation secondary to stenotrophomonas Patient had a walking oximetry completed in December that showed no need for supplemental oxygen, but had limited mobility. Patient has required BiPAP rescue during the hospitalization. Clinical suspicion for stenotrophomonas exacerbation of COPD and bronchiectasis. Likely okay to discontinue steroids from my perspective. Continue with bronchodilators. Patient will need a walking oximetry prior to discharge. 4. End-stage renal disease/hypertension/history of A. fib/non-ST elevation NC/anxiety/depression/history of alcohol abuse Complicates care, management, recovery and prognosis. Defer to cardiology and nephrology on management of NSTEMI and ESRD. Patient has not required any as needed Ativan, so CIWA protocol will be discontinued. Patient unable to tolerate volume removal previously. Patient would be due for dialysis today by routine schedule. Subjective Subjective Patient did well overnight. Patient relieved that his NG has been removed. No respiratory complaints at this time. Patient reported multiple bowel movements overnight following an enema Objective Data Objective Data Vital Signs: Vital Signs Temp Pulse Resp BP Pulse Ox 36.8 C 84 17 111/66 97 03/17/21 08:00 03/17/21 08:00 03/17/21 08:00 03/17/21 08:00 03/17/21 08:00 Oxygen Flow Rate (L/min) 2 Oxygen Delivery Method Nasal Cannula Weight: 78.9 kg Body Mass Index (BMI) 28.8 Intake & Output: Intake and Output for Last 24 Hours 03/15/21 03/16/21 03/17/21 23:59 23:59 23:59 Intake Total 1369.94 / 1521.60 1803.01 / 1864.71 584.60 / 584.60 Output Total 5150 / 5200 300 / 500 200 / 200 Balance -3780.06 / -3678.40 1503.01 / 1364.71 384.60 / 384.60 Lab / Micro Data Result Diagrams: 03/17/21 05:31 03/17/21 05:31 Labs: Laboratory Results - last 24 hr 03/17/21 05:31: WBC 9.5, RBC 2.46 L, Hgb 7.5 L, Hct 23.9 L, MCV 97.2 H, MCH 30.5, MCHC 31.4 L, RDW Std Deviation 54.0 H, RDW Coeff of Karl 15.5 H, Plt Count 194, MPV 10.9, Immature Gran % (Auto) 1.500 H, Neut % (Auto) 86.6 H, Lymph % (Auto) 5.2 L, [place] % (Auto) 6.5, Eos % (Auto) 0.0, Baso % (Auto) 0.2, Absolute Neuts (auto) 8.2 H, Absolute Lymphs (auto) 0.49 L, Nucleated RBC % 0, Differential Comment SCANNED, Hypochromasia 2+, Anisocytosis RARE, Microcytosis RARE 03/17/21 05:31: Sodium 133 L, Potassium 3.4 L, Chloride 97 L, Carbon Dioxide 27.0, Anion Gap 9, BUN 36 H, Creatinine 3.32 H, Estim Creat Clear Calc 21.29, Est GFR (MDRD) Af Amer 24 L, Est GFR (MDRD) Non-Af 20 L, BUN/Creatinine Ratio 10.8, Glucose 114 H, Calcium 8.3 L Micro: Microbiology 03/12/21 22:30 Blood Culture (Wb) - Line Draw Blood Culture - Preliminary No growth in 48 hours. 03/12/21 20:15 Blood Culture (Wb) - Right Forearm Blood Culture - Preliminary No growth in 48 hours. 03/09/21 18:30 Sputum, Expectorated/Coughed Gram Stain - Final 03/09/21 18:30 Sputum, Expectorated/Coughed Respiratory Culture - Final Stenotrophomonas maltophilia 03/08/21 06:53 Mucosa - Nose Respiratory Panel (PCR) - Final 03/08/21 03:27 Nasal Secretion SARS-CoV-2 Antigen (Rapid) - Final Physical Exam Const alert and oriented x3 General Appearance: cooperative and comfortable HEENT normocephalic Eyes PERRL and conjunctivae normal; Negative for EOMs intact bilaterally Neck full ROM, No nuchal rigidity and no lymphadenopathy Chest inspection of chest normal Chest: symmetrical chest wall rise; Negative for crepitus Resp normal respiratory effort Auscultation: rhonchi and diminished lung sounds; Negative for rales or wheezes Cardio Rate: tachycardic Rhythm: abnormal rhythm irregularly irregular Heart Sounds: Negative for gallop, murmur or rub GI GI Narrative: Appears to be improving. Not as distended with normal bowel sounds. Palpation: soft; Negative for tender, guarding or rebound tenderness present Extremity normal to inspection General Extremity: edema; Negative for clubbing or cyanosis Skin Skin Narrative: No change from previous Neuro oriented x3, CN's II-XII intact bilaterally and moves all extremities Psych Appearance: disheveled Activity / Motor Behavior: fidgetting Mood & Affect: anxious Charges/Coding Visit Charges Inpatient E&M: 97339 Subs Hosp L2
--- NOTE | 2021-03-17 10:17 | PCM.DC ---
Discharge Instructions Diet Discharge Diet: Low fat / Low cholesterol Activity Weight Bearing Status: Weight bearing as tolerated Dressing / Incision Call your doctor if you observe: Fever of 101 or Higher, Shortness of breath, Swelling in the ankles and Increased palpitations (irregular heartbeat) Follow Up Care Test Results: Test results from this visit will be discussed in further detail at your follow-up appointment, if applicable. Discharge Plan Admission Admit Date/Time: 03/08/21 04:45 Primary Reason for Your Visit: COPD exacerbation, nonstemi, small bowel obstruction Attending Provider: Shashank Thompson Primary Care Provider: Doron Recio Consulting Providers: Raheel Hinojosa ; Olamide Arreguin ; Gee Machado ; Ely Perez Instructions Patient Instructions: COPD: Chronic Coughing, COPD Meds, Heart Attack Meds, Heart Attack: Leaving the Hospital Discharge Orders/Prescriptions Prescriptions: New aspirin 81 mg tablet,delayed release (DR/EC) 81 mg PO DAILY Qty: 30 RF: 1 atorvastatin 40 mg tablet 40 mg PO QHS Qty: 30 RF: 0 clopidogrel 75 mg tablet 75 mg PO DAILY Qty: 30 RF: 0 diltiazem HCl 180 mg capsule,extended release 24hr 180 mg PO DAILY Qty: 30 RF: 0 amiodarone 200 mg tablet 200 mg PO BID Qty: 60 RF: 0 sevelamer HCl 800 mg tablet 800 mg PO TID Qty: 90 RF: 0 levofloxacin 500 mg Tablet 500 mg PO Q48@0600 Qty: 2 RF: 0 Continued albuterol sulfate 2 mg/5 mL syrup 2 mg PO TID RF: 0 sertraline 100 mg tablet 100 mg PO DAILY RF: 0 fluticasone propion-salmeterol 250-50 mcg/dose blister with device 1 inh INHALATION BID Qty: 60 RF: 1 cetirizine 10 mg tablet 10 mg PO DAILY Qty: 30 RF: 1 acetaminophen 650 MG tablet extended release 650 mg PO Q8H PRN PRN (Reason: Pain Score 1-10/10) Qty: 30 RF: 1 tamsulosin 0.4 MG capsule 0.4 mg PO DAILY Qty: 30 RF: 1 nitroglycerin 0.4 mg tablet, sublingual 0.4 mg SUBLINGUAL Q5-15M PRN (Reason: chest pain) Qty: 30 RF: 1 albuterol sulfate 90 mcg/actuation HFA aerosol inhaler 2 puff inhalation Q4H PRN PRN (Reason: Sob &/Or Wheezing) Qty: 18 RF: 1 ondansetron 4 MG tablet 4 mg PO Q8H PRN PRN (Reason: Nausea) Qty: 30 RF: 1 loratadine 10 MG capsule 10 mg PO DAILY Qty: 30 RF: 1 Spiriva Respimat 2.5 mcg/actuation mist 2 puff INHALATION QDAY Qty: 1 RF: 1 Discontinued sevelamer carbonate 800 mg tablet 1,600 mg PO TID RF: 0 furosemide 20 mg tablet 20 mg PO DAILY RF: 0 hydroxyzine HCl 50 mg tablet 50 mg PO QHS RF: 0 gabapentin 300 mg capsule 100 mg PO BID RF: 0 lovastatin 20 MG tablet 40 mg PO QHS RF: 0 Hold Instructions: Myalgias in arms metoprolol tartrate 25 mg tablet 50 mg PO BID 90 Days Qty: 360 RF: 3 diltiazem HCl 240 mg capsule,extended release 24hr 240 mg PO DAILY Qty: 30 RF: 11 No Action (DME) Acapella Qty: 1 RF: 0 (DME) electric wheel chair See Rx Instructions .Route .MEDSUPPLY Qty: 1 RF: 0 Referrals / Follow Up: Ely Perez DO [STAFF PHYSICIAN] - In 1 Week Iban Valdez MD [STAFF PHYSICIAN] - Within 2 Weeks Doron Recio MD [Primary Care Provider] - Within 2 Weeks Disposition Disposition (needs filled in before D/C Order can be placed): Against Medical Advice
--- NOTE | 2021-03-17 10:27 | DS.PCM_ITS ---
Providers Date of Admission: 03/08/21 Primary Care Physician: Dr. Doron Recio MD Consultations 03/08/21 06:09 Consult: Cardiology Routine Consulting Provider: Raheel Hinojosa Reason for Consult: CP, EKG Changes, Elevated Trop EMERGENT Consult: No Notified: Yes Date Notified: 03/08/21 Time Notified: 05:39 Method of Notification: cortext Consult: Nephrology Routine Consulting Provider: Ely Perez Reason for Consult: ESRD on HD, admit w/ COPD exac, CP w/ EKG changes EMERGENT Consult: No MD Notified: Yes Date Notified: 03/08/21 Time Notified: 04:44 Method of Notification: Text 03/11/21 23:23 Consult: General Surgery Routine Consulting Provider: Olamide Arreguin Reason for Consult: N/V, SBO EMERGENT Consult: No Notified: Yes Date Notified: 03/11/21 Time Notified: 23:24 Method of Notification: cortext 03/12/21 21:55 Consult: Executive Sales Manager / Pulmonary Medicine Routine Consulting Provider: Gee Machado Reason for Consult: septic shock EMERGENT Consult: No Notified: Yes Date Notified: 03/12/21 Time Notified: 21:55 Method of Notification: Text Reason For Visit: COPD EXACERBATION, EKG CHANGES/CHEST PAIN Diagnosis Discharge Diagnosis (1) Septic shock: Status: Acute Code(s): A41.9 - Sepsis, unspecified organism; R65.21 - Severe sepsis with septic shock (2) SBO (small bowel obstruction): Status: Acute Code(s): K56.609 - Unspecified intestinal obstruction, unspecified as to partial versus complete obstruction (3) ESRD (end stage renal disease) on dialysis: Status: Chronic Code(s): N18.6 - End stage renal disease; Z99.2 - Dependence on renal dialysis (4) Chronic obstructive pulmonary disease: Status: Chronic Code(s): J44.9 - Chronic obstructive pulmonary disease, unspecified Qualifiers: COPD type: chronic bronchitis Chronic bronchitis type: mucopurulent Qualified Code(s): J41.1 - Mucopurulent chronic bronchitis (5) Infection due to Stenotrophomonas maltophilia: Status: Acute Code(s): A49.8 - Other bacterial infections of unspecified site (6) Persistent atrial fibrillation with RVR: Status: Acute Code(s): I48.19 - Other persistent atrial fibrillation (7) Non-ST elevation myocardial infarction, initial hospitalization: Status: Acute Code(s): I21.4 - Non-ST elevation (NSTEMI) myocardial infarction Medications at Discharge Home Medications albuterol sulfate 2 mg/5 mL oral syrup 2 mg PO TID 12/15/19 Acapella #1 ea 04/05/20 electric wheel chair #1 ea 07/03/20 sertraline 100 mg PO DAILY 03/08/21 Spiriva Respimat 2 puff INHALATION QDAY #1 ea 03/11/21 acetaminophen 650 mg PO Q8H PRN PRN #30 tab 03/11/21 albuterol sulfate 2 puff INHALATION Q4H PRN PRN #18 g 03/11/21 aspirin 81 mg PO DAILY #30 tab 03/11/21 cetirizine 10 mg PO DAILY #30 tab 03/11/21 fluticasone propion-salmeterol 1 inh INHALATION BID #60 ea 03/11/21 loratadine 10 mg PO DAILY #30 cap 03/11/21 nitroglycerin 0.4 mg SUBLINGUAL Q5-15M PRN #30 tab 03/11/21 ondansetron 4 mg PO Q8H PRN PRN #30 tab 03/11/21 tamsulosin 0.4 mg PO DAILY #30 cap 03/11/21 amiodarone 200 mg PO BID #60 tab 03/17/21 atorvastatin 40 mg PO QHS #30 tab 03/17/21 clopidogrel 75 mg PO DAILY #30 tab 03/17/21 diltiazem HCl 180 mg PO DAILY #30 cap 03/17/21 levofloxacin 500 mg PO Q48@0600 #2 tab 03/17/21 sevelamer HCl 800 mg PO TID #90 tab 03/17/21 Hospital Course Procedures Cardiac catheterization and Dialysis Summary of Care Provided Minutes Spent on Discharge: 45 Hospital Course: 65-year-old male presents with chest pain and shortness of breath. Patient was found to have acute exacerbation of COPD plus had chest pain with EKG changes and an NonST elevation myocardial infarction. Patient underwent PCI to the left circumflex artery. Subsequently, patient developed a small bowel obstruction requiring NG tube. NG tube was removed by the patient on several occasions. Finally was able to tolerate being placed. He then subsequent developed H relation with RVR. Required several drips and then was rate controlled with amiodarone as well as diltiazem. On the fourth, patient's NG tube was removed and he immediately was demand to be discharged. Informed him that he still on the amiodarone drip as well as diltiazem and we do not know how he is can respond with his just having NG tube removed and how to tolerate diet. Patient insist on going home. Patient advised that he could develop an arrhythmia again which could lead to tachycardia, myocardial infarction or even . He states that he has to move and if he does not move that he is can be out of thousand dollars. I told him that he could be and he then Snively said that if he is that he will have to pay thousand dollars. He is alert and oriented x3 and understands the risks of going home and that he is leaving AGAINST MEDICAL ADVICE. I did discuss the case with Dr. Marie and he recommended amiodarone 200 twice daily with close follow-up with cardiology as well as diltiazem. I was given this is not an ideal situation but the patient is adamant about leaving a small device, ironically, patient wishes to get his dialysis today.. He will have his retropubic catheter removed prior to discharge. Patient has a high likelihood of readmission or even . Patient is not medically ready for discharge but is insist on leaving against medical advice. Patient higher risk of stroke as he will not be on anticoagulation but ideally should probably be on warfarin given his end-stage renal disease but I would not start on as he is leave AGAINST MEDICAL ADVICE and I am highly concerned about him following up and his compliance. Additionally, patient does have a stenotrophomonas pneumonia which he will receive 2 more doses of levofloxacin which is a cover 10-day course of antibiotics. Physical Exam Const alert, oriented x3 and no apparent distress General Appearance: comfortable Weight / BMI Weight Weight: 78.9 kg Body Mass Index (BMI) 28.8 ABG / Lab / Microbiology Data Result Diagrams: 03/17/21 05:31 03/17/21 05:31 Laboratory: Laboratory Results - last 24 hr 03/17/21 05:31: WBC 9.5, RBC 2.46 L, Hgb 7.5 L, Hct 23.9 L, MCV 97.2 H, MCH 30.5, MCHC 31.4 L, RDW Std Deviation 54.0 H, RDW Coeff of Karl 15.5 H, Plt Count 194, MPV 10.9, Immature Gran % (Auto) 1.500 H, Neut % (Auto) 86.6 H, Lymph % (Auto) 5.2 L, Frio % (Auto) 6.5, Eos % (Auto) 0.0, Baso % (Auto) 0.2, Absolute Neuts (auto) 8.2 H, Absolute Lymphs (auto) 0.49 L, Nucleated RBC % 0, Differential Comment SCANNED, Hypochromasia 2+, Anisocytosis RARE, Microcytosis RARE 03/17/21 05:31: Sodium 133 L, Potassium 3.4 L, Chloride 97 L, Carbon Dioxide 27.0, Anion Gap 9, BUN 36 H, Creatinine 3.32 H, Estim Creat Clear Calc 21.29, Est GFR (MDRD) Af Amer 24 L, Est GFR (MDRD) Non-Af 20 L, BUN/Creatinine Ratio 10.8, Glucose 114 H, Calcium 8.3 L Microbiology: Microbiology 03/12/21 22:30 Blood Culture (Wb) - Line Draw Blood Culture - Preliminary No growth in 48 hours. 03/12/21 20:15 Blood Culture (Wb) - Right Forearm Blood Culture - Preliminary No growth in 48 hours. 03/09/21 18:30 Sputum, Expectorated/Coughed Gram Stain - Final 03/09/21 18:30 Sputum, Expectorated/Coughed Respiratory Culture - Final Stenotrophomonas maltophilia 03/08/21 06:53 Mucosa - Nose Respiratory Panel (PCR) - Final 03/08/21 03:27 Nasal Secretion SARS-CoV-2 Antigen (Rapid) - Final D/C Instructions Discharge Diet: Low fat / Low cholesterol Weight Bearing Status: Weight bearing as tolerated Call your doctor if you observe: Fever of 101 or Higher, Shortness of breath, Swelling in the ankles and Increased palpitations (irregular heartbeat) Meaningful Use Info Meaningful Use Diagnoses (Choose all that apply): AMI AMI/Post PCI/Angioplasty Aspirin given w/in 24hrs of arrival?: Yes ASA at discharge?: Yes Antiplatelet Therapy at Discharge:: Yes Statins at discharge?: Yes Jeff/ARB at discharge?: No Reason Jeff/ARB not ordered:: Worsening renal dysfunctn Beta Sb at discharge?: No Reason Beta Sb not ordered:: Hypotension Done w/ Acute CA measure.: Yes Documented LVEF (%): 45 Discharge Plan Admission Admit Date/Time: 03/08/21 04:45 Primary Reason for Your Visit: COPD exacerbation, nonstemi, small bowel obstruction Attending Provider: Shashank Thompson Primary Care Provider: Doron Recio Consulting Providers: Raheel Hinojosa ; Olamide Arreguin ; Gee Machado ; Ely Badillo Instructions Patient Instructions: COPD: Chronic Coughing, COPD Meds, Heart Attack Meds, Heart Attack: Leaving the Hospital Discharge Orders/Prescriptions Prescriptions: New aspirin 81 mg tablet,delayed release (DR/EC) 81 mg PO DAILY Qty: 30 RF: 1 atorvastatin 40 mg tablet 40 mg PO QHS Qty: 30 RF: 0 clopidogrel 75 mg tablet 75 mg PO DAILY Qty: 30 RF: 0 diltiazem HCl 180 mg capsule,extended release 24hr 180 mg PO DAILY Qty: 30 RF: 0 amiodarone 200 mg tablet 200 mg PO BID Qty: 60 RF: 0 sevelamer HCl 800 mg tablet 800 mg PO TID Qty: 90 RF: 0 levofloxacin 500 mg Tablet 500 mg PO Q48@0600 Qty: 2 RF: 0 Continued albuterol sulfate 2 mg/5 mL syrup 2 mg PO TID RF: 0 sertraline 100 mg tablet 100 mg PO DAILY RF: 0 fluticasone propion-salmeterol 250-50 mcg/dose blister with device 1 inh INHALATION BID Qty: 60 RF: 1 cetirizine 10 mg tablet 10 mg PO DAILY Qty: 30 RF: 1 acetaminophen 650 MG tablet extended release 650 mg PO Q8H PRN PRN (Reason: Pain Score 1-10/10) Qty: 30 RF: 1 tamsulosin 0.4 MG capsule 0.4 mg PO DAILY Qty: 30 RF: 1 nitroglycerin 0.4 mg tablet, sublingual 0.4 mg SUBLINGUAL Q5-15M PRN (Reason: chest pain) Qty: 30 RF: 1 albuterol sulfate 90 mcg/actuation HFA aerosol inhaler 2 puff inhalation Q4H PRN PRN (Reason: Sob &/Or Wheezing) Qty: 18 RF: 1 ondansetron 4 MG tablet 4 mg PO Q8H PRN PRN (Reason: Nausea) Qty: 30 RF: 1 loratadine 10 MG capsule 10 mg PO DAILY Qty: 30 RF: 1 Spiriva Respimat 2.5 mcg/actuation mist 2 puff INHALATION QDAY Qty: 1 RF: 1 Discontinued sevelamer carbonate 800 mg tablet 1,600 mg PO TID RF: 0 furosemide 20 mg tablet 20 mg PO DAILY RF: 0 hydroxyzine HCl 50 mg tablet 50 mg PO QHS RF: 0 gabapentin 300 mg capsule 100 mg PO BID RF: 0 lovastatin 20 MG tablet 40 mg PO QHS RF: 0 Hold Instructions: Myalgias in arms metoprolol tartrate 25 mg tablet 50 mg PO BID 90 Days Qty: 360 RF: 3 diltiazem HCl 240 mg capsule,extended release 24hr 240 mg PO DAILY Qty: 30 RF: 11 No Action (DME) Acapella Qty: 1 RF: 0 (DME) electric wheel chair See Rx Instructions .Route .MEDSUPPLY Qty: 1 RF: 0 Referrals / Follow Up: Ely Perez DO [STAFF PHYSICIAN] - In 1 Week Iban Valdez MD [STAFF PHYSICIAN] - Within 2 Weeks Doron Recio MD [Primary Care Provider] - Within 2 Weeks Disposition Disposition (needs filled in before D/C Order can be placed): Against Medical Advice Charges/Coding Visit Charges Inpatient E&M: [id number] [facility]
--- NOTE | 2021-03-17 10:51 | CASEMGMT ---
TEZ JANSEN updated that patient is wanting to leave AMA. Patient does not have home oxygen portable tank to discharge. TEZ JANSEN called [facility] and arranged for portable tank to be delivered to patient's room prior to discharge. Patient denied any further needs. TEZ JANSEN updated [employer] [facility] regarding home oxygen tank to be delivered.
[2021-03-17] MEDS: Epoetin Alfa epbx 10,000 UNITS/ML 10000 UNIT IV (11:28)
[2021-03-17] MEDS: Multivitamins,Ther W-Minerals Tablet 1 TABLET PO (11:29)
[2021-03-17] MEDS: Aspirin E.C. 81 MG Tablet PO (11:29)
[2021-03-17] MEDS: Clopidogrel Bisulfate 75 MG Tablet PO (11:29)
[2021-03-17] MEDS: 0.9% Saline Lock 10 ML Syringe IV (11:29)
[2021-03-17] MEDS: Tamsulosin HCl 0.4 MG Capsule PO (11:29)
[2021-03-17] MEDS: Loratadine 10 MG Tablet PO (11:29)
[2021-03-17] MEDS: Amiodarone 200 MG Tablet PO (11:29)
[2021-03-17] MEDS: Gabapentin 100 MG Capsule PO (11:29)
[2021-03-17] MEDS: dilTIAZem CD 180 MG Capsule PO (11:29)
[2021-03-17] MEDS: Metoprolol Tartrate 25 MG Tablet PO (11:29)
[2021-03-17] MEDS: Docusate Sodium 100 MG/10 ML UDC GT (11:30)
--- NOTE | 2021-03-17 11:34 | NURSING ---
AM medications given late at this time due to dialysis Tx
--- NOTE | 2021-03-17 11:39 | CM.ED ---
marlene NOTE: Referral Source: RN INDERJIT Referral Reason: Patient reports that he is leaving AMA. CM has arranged for home oxygen. CM reports patient reports he is going to [facility] at discharge. Patient told staff that his transport to dialysis on Friday is scheduled. Patient said that he will make call for his transport on Friday. Marlene was updated by RN that he is refusing home oxygen and that he is cutting his diaylsis short. MARLENE called [facility] and spoke to [facility]. She said that patient is not one of the current patient and is not on the waiting list. She said that she will need to contact her director. MARLENE received call back from [facility] as she spoke to the director. Patient has a room assignment but no keys. Constance said that the paperwork is not complete per [facility]. [facility] said that the placement is not approved by [facility] yet. Constance said that patient still needs to be preapproved. [facility] said to assure patient that his apartment will be held. SW went to patient's room. He was updated regarding apartment at [facility] and that it is not ready yet. Patient said that he is leaving today. MARLENE explained that he does not have keys and the paperwork is not done. Patient referenced that he has the paperwork and he had just spoken to [facility] and he can go there as it is ready. MARLENE explained that this medical writer had recently called [facility] and was informed that the application and metro approval need to be completed. Patient continually voiced that he was being discharged and that was my right. MARLENE asked if there was anything additional that patient needed today and he said hell no.. not from you. MARLENE updated RN INDERJIT and RN regarding this conversation. Plan: Patient reports he is leaving AMA. Jeanette BOSE
--- NOTE | 2021-03-17 12:30 | NURSING ---
Patient has signed AMA papers. Copy provided to patient
--- NOTE | 2021-03-17 19:10 | CM.ED ---
MJ Note MJ called Feliciano Wood at [facility] and made report regarding patient leaving AMA, declining his oxygen, stating he was going to [facility] via scooter but [facility] reporting his paperwork is not complete and he has no márquez and refusing to stay at the hospital for diaylsis. MJ had also updated Constance at [facility] that patient is scheduled fo diaylsis on Friday but reported no one could call [employer] on Friday and he reported to staff that he would take care of it.MJ did call [employer] but did not leave message. Plan: Patient discharged AMA Jeanette BOSE
--- NOTE | 2021-03-20 10:52 | CASEMGMT ---
MJ called Sri Chapman at [facility], she is on a leave of absence. MJ called the coverage line, let them know pt left AMA over the weekend. Also Feliciano from [facility] called and left a message back for MJ Reid in the ED, MJ called Feliciano back and left a message. SKIP Trevizo
--- NOTE | 2021-03-20 12:00 | CM.ED ---
SOCIAL WORK Received call from [place] with [facility] requesting assistance with getting patient into group home. Patient wanted referral to [facility]. Clinical documentation faxed to [facility]. STEVE Ocampo, EMBOSSING MACHINE OPERATOR HELPER
== END 2021-03-17 13:20 | disposition left against medical advice (07) | DRG 248 ==
LOC: ED 04:35 → PCU 04:55 → ICU 03-13 07:31 → PCU 03-16 18:23
PROVIDERS: Hospitalist; Internal Medicine Nephrology; Student in an Organized Health Care Education/Training Program; Surgery; Admitting Provider Family Medicine; Emergency Provider Emergency Medicine; PCP Family Medicine
PROC: 0DJ08ZZ Inspection of Upper Intestinal Tract, Via Natural or Artificial Opening Endoscopic (ICD-10-PCS; CPT 43235; principal; 2021-03-12 10:25)
DX: I21.4 Non-ST elevation (NSTEMI) myocardial infarction (principal); A41.89 Other specified sepsis; R65.21 Severe sepsis with septic shock; N18.6 End stage renal disease; J96.21 Acute and chronic respiratory failure with hypoxia; J15.6 Pneumonia due to other Gram-negative bacteria; J44.1 Chronic obstructive pulmonary disease with (acute) exacerbation; I48.19 Other persistent atrial fibrillation; E87.1 Hypo-osmolality and hyponatremia; I42.6 Alcoholic cardiomyopathy; K40.30 Unilateral inguinal hernia, with obstruction, without gangrene, not specified as recurrent; J44.0 Chronic obstructive pulmonary disease with (acute) lower respiratory infection; I12.0 Hypertensive chronic kidney disease with stage 5 chronic kidney disease or end stage renal disease; Z99.2 Dependence on renal dialysis; F17.210 Nicotine dependence, cigarettes, uncomplicated; D63.1 Anemia in chronic kidney disease; E78.5 Hyperlipidemia, unspecified; F41.9 Anxiety disorder, unspecified; F32.9 Major depressive disorder, single episode, unspecified; N40.0 Benign prostatic hyperplasia without lower urinary tract symptoms; F10.10 Alcohol abuse, uncomplicated; Z91.15 Patient's noncompliance with renal dialysis; I25.10 Atherosclerotic heart disease of native coronary artery without angina pectoris
CPT/HCPCS: 36415; 36600; 71045; 74018; 74177; 74250; 80048; 80053; 80061; 82803; 83605; 83735; 84100; 84145; 84484; 85025; 85730; 87040; 87070; 87077; 87186; 87205; 87426; 87633; 87641; 90937; 92928; 93005; 93306; 93454; 94640; 97162; 97166; 97530; 97802; 97803; 99152; 99153; 99285; 99406; J7030; J7040; J7050; J7120; Q9967; A4216; C1725; C1769; C1876; C1887; C1894; G0257; J1940; J2405; Q5106

== ENCOUNTER 2021-03-26 18:05 | Inpatient (IN) | payer MEDICARE, MEDICAID, SELFPAY ==
[2021-03-26] VITALS (9 sets, daily range): BP systolic 112–134; BP diastolic 66–82; PULSE 83–186; RESP 18–31; TEMP 35.6–37.3; O2SAT 96–100; BMI 26.6; BMI 24.7
--- NOTE | 2021-03-26 19:15 | RAD_ITS ---
HISTORY: SOB EXAMINATION/TECHNIQUE: XR Chest 2 Views: 2 views COMPARISON: 03/12/21 FINDINGS: LINES/DEVICES: None. LUNGS: Decreasing but persistent bibasilar airspace opacities with decreased blunting of the left costophrenic angle. MEDIASTINUM AND CARDIOVASCULAR STRUCTURES: Cardiac silhouette not enlarged. Central airways and mediastinal contour are unremarkable. BONES AND SOFT TISSUES: No acute bony abnormalities. RAD/Chest PA and Lateral IMPRESSION: Partial resolution of bilateral airspace disease with decreasing left pleural effusion. at 1944 Reported and signed by: Montez Joaquin MD Electronically Signed: Montez Joaquin MD at 19:43 EDT Tel , Service support ,
[2021-03-26 19:56] LABS: Absolute Lymphocyte Count 1.06 X10^3/uL (0.83-4.51); Absolute Neutrophil Count 5.2 X10^3/uL (2.0-7.7); Basophil# 0.03 X10^3/uL; Basophil% 0.4 % (0-1); Eosinophil# 0.12 X10^3/uL; Eosinophils% 1.6 % (0-5); Hematocrit 27.6 % (40-54); Hemoglobin 8.6 g/dL (13.0-16.5); Lymphocyte # 1.06 X10^3/ul (0.83-4.51); Lymphocyte % 14.3 % (19-41); Mean Corp Hgb Conc 31.2 g/dL (32-36); Mean Corpuscular Hgb 29.3 pg (27.0-32.0); Mean Corpuscular Volume 93.9 fL (80-94); Mean Platelet Vol. 11.2 fl (6.2-12.0); Monocyte# 0.98 X10^3/uL; Monocyte% 13.2 % (0-10); NRBC Flagged by Analyzer 0 % (0-5); Neutrophil # 5.22 X10^3/uL (2.7-7.7); Neutrophil % 70.2 % (47-70); Platelet Count 204 K/mm3 (150-450); Red Blood Count 2.94 M/mm3 (4.6-6.2); White Blood Count 7.4 K/mm3 (4.4-11.0)
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
[2021-03-26 20:06] LABS: Anion Gap 11 (5-15); BUN 19 mg/dL (7-18); BUN/Creat Ratio 3.8 RATIO (10-20); Calcium,Total 8.5 mg/dL (8.5-10.1); Chloride 92 mmol/L (98-107); Creatinine, Serum 4.99 mg/dL (0.70-1.30); EST Glomerular Filtration Rate 13 mL/min (>60); Est Glom Filt Rate - Afr Amer 15 mL/min (>60); Estimated Creatinine Clearance 15.15 ml/min; Glucose 109 mg/dL (74-106); Potassium 3.1 mmol/L (3.5-5.1); Sodium Level 134 mmol/L (136-145)
--- NOTE | 2021-03-26 20:18 | EKG12_ITS ---
Test Reason : SOB Blood Pressure : / mmHG Vent. Rate : 095 BPM Atrial Rate : 095 BPM P-R Int : 180 ms QRS Dur : 116 ms QT Int : 446 ms P-R-T Axes : 092 026 173 degrees QTc Int : 560 ms Sinus rhythm with Premature atrial complexes Incomplete left bundle branch block ST & Marked T wave abnormality, consider anterolateral ischemia Prolonged QT Abnormal ECG Confirmed by MARIA DOLORES CERVANTES, ALEJA ([id number]), society editor SEAN WEBB ([id number]) on 03/28/2021 10:39:12 AM Referred By: DENI Confirmed By:ALEJA WHITTEN MD
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
[2021-03-26] MEDS: Acetaminophen 500 MG Tablet 1000 MG PO (20:42)
--- NOTE | 2021-03-26 20:45 | ED.RN ---
patient is a dialysis patient - creat is reason for sepsis alert -- dr guillen
[2021-03-26 20:51] LABS: Bacteria 0 SEEN /hpf (None Seen); Mucous, Urine 0 SEEN /hpf (<or=2+); Red Blood Cells-Urine 0 SEEN /hpf (0-5)
[2021-03-26 21:09] LABS: Color, Urine Yellow (Yellow); Glucose, Dipstick Normal (Normal); Ketone-Dipstick Negative (Negative); Leukocyte Esterase-Dipstick 500 /ul (Negative); Nitrite-Dipstick Negative (Negative); Occult Blood-Urine 50 /ul (Negative); Protein-Dipstick 100 mg/dl (Negative); Specific Gravity, Urine 1.015 (1.002-1.030); Urine Bilirubin Dipstick Negative (Negative); Urine Clarity Clear (Clear); Urine Urobilinogen Normal (Normal)
[2021-03-26 21:21] LABS: Squamous Epithelial Cells - UA 0-5 SEEN /hpf (0-5); White Blood Cells 10-25 SEEN /hpf (0-5)
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
[2021-03-27] VITALS (18 sets, daily range): BP systolic 78–134; BP diastolic 57–82; PULSE 84–135; RESP 16–20; TEMP 36.1–37.3; O2SAT 95–100
[2021-03-27] MEDS: Atorvastatin Calcium 40 MG Tablet PO ×2 (00:49→21:30)
[2021-03-27] MEDS: Heparin Injection (Vial) 5,000 UNIT/ML VIAL 5000 UNIT SC ×4 (00:49→21:30)
[2021-03-27] MEDS: Amiodarone 200 MG Tablet PO ×3 (00:49→21:30)
[2021-03-27] MEDS: MELATONIN 3 MG TABLET PO ×2 (00:51→21:38)
[2021-03-27] MEDS: Potassium Chloride Oral Tablet 20 MEQ PO ×2 (00:51→03:13)
--- NOTE | 2021-03-27 03:30 | EKG12_ITS ---
Test Reason : CP Blood Pressure : / mmHG Vent. Rate : 130 BPM Atrial Rate : 056 BPM P-R Int : 000 ms QRS Dur : 112 ms QT Int : 380 ms P-R-T Axes : 000 045 211 degrees QTc Int : 559 ms Undetermined rhythm : Consider Atrial Flutter with variable AV conduction Incomplete left bundle branch block ST & T wave abnormality, consider inferior ischemia ST & T wave abnormality, consider anterolateral ischemia Abnormal ECG Confirmed by MARIA DOLORES CERVANTES, ALEJA ([id number]), editor department SEAN WEBB ([id number]) on 03/28/2021 10:43:52 AM Referred By: CLAIRE Confirmed By:ALEJA WHITTEN MD
[2021-03-27] MEDS: Nitroglycerin (INPATIENT USE) 0.4 MG TAB.SUBL SL (03:52)
--- NOTE | 2021-03-27 04:26 | PCM.PN.BLA ---
Progress Note Patient reports chest pain. Patient with heart rates in the 130s. Nitroglycerin x1 given with systolic blood pressure in the 70s. Cardiac enzymes ordered. Will start patient on amiodarone drip. Discontinue home Cardizem and p.o. amiodarone for now.
[2021-03-27 04:33] LABS: Troponin-I HS 41 pg/mL (3.0-78.0)
[2021-03-27 04:54] LABS: Anion Gap 10 (5-15); BUN 21 mg/dL (7-18); BUN/Creat Ratio 3.9 RATIO (10-20); Calcium,Total 7.7 mg/dL (8.5-10.1); Chloride 97 mmol/L (98-107); EST Glomerular Filtration Rate 11 mL/min (>60); Est Glom Filt Rate - Afr Amer 14 mL/min (>60); Glucose 149 mg/dL (74-106); Magnesium 1.7 mg/dL (1.6-2.6); Potassium 2.9 mmol/L (3.5-5.1); Sodium Level 136 mmol/L (136-145)
[2021-03-27] MEDS: 0.9% Saline Lock 10 ML Syringe IV (06:08)
[2021-03-27 06:36] LABS: Troponin-I HS 38 pg/mL (3.0-78.0)
[2021-03-27] MEDS: Ipratropium/Albuterol Sulfate 3 ML AMPUL.NEB INHALATION ×3 (06:40→19:53)
[2021-03-27] MEDS: Budesonide Respules 0.5 MG/2 ML AMPUL.NEB. INHALATION ×2 (06:40→19:53)
--- NOTE | 2021-03-27 09:08 | PN.HOSP_ITS ---
Subjective Subjective Patient was seen and examined. He remains in RVR. Denied any chest pain or dizziness. Objective Data Objective Data Vital Signs: Vital Signs Temp Pulse Resp BP Pulse Ox 96.9 F L 130 H 18 117/69 100 03/27/21 05:19 03/27/21 07:16 03/27/21 05:19 03/27/21 05:19 03/27/21 05:19 Oxygen Flow Rate (L/min) 4 Oxygen Delivery Method Nasal Cannula Weight: 75.8 kg Body Mass Index (BMI) 24.7 Intake & Output: Intake and Output for Last 24 Hours 03/25/21 03/26/21 03/27/21 23:59 23:59 23:59 Intake Total 620 / 620 Balance 620 / 620 Lab / Micro Data Result Diagrams: 03/26/21 19:35 03/27/21 15:41 Labs: Laboratory Results - last 24 hr 03/26/21 19:35: WBC 7.4, RBC 2.94 L, Hgb 8.6 L, Hct 27.6 L, MCV 93.9, MCH 29.3, MCHC 31.2 L, RDW Std Deviation 54.0 H, RDW Coeff of Karl 16.0 H, Plt Count 204, MPV 11.2, Immature Gran % (Auto) 0.300, Neut % (Auto) 70.2 H, Lymph % (Auto) 14.3 L, [place] % (Auto) 13.2 H, Eos % (Auto) 1.6, Baso % (Auto) 0.4, Absolute Neuts (auto) 5.2, Absolute Lymphs (auto) 1.06, Nucleated RBC % 0 03/26/21 19:35: Sodium 134 L, Potassium 3.1 L, Chloride 92 L, Carbon Dioxide 31.0, Anion Gap 11, BUN 19 H, Creatinine 4.99 H, Estim Creat Clear Calc 15.15, Est GFR (MDRD) Af Amer 15 L, Est GFR (MDRD) Non-Af 13 L, BUN/Creatinine Ratio 3.8 L, Glucose 109 H, Calcium 8.5 03/26/21 : Urine Color Yellow, Urine Clarity Clear, Urine pH 9.0, Ur Specific [place] 1.015, Urine Protein 100 H, Urine Glucose (UA) Normal, Urine Ketones Negative, Urine Occult Blood 50 H, Urine Nitrite Negative, Urine Bilirubin Negative, Urine Urobilinogen Normal, Ur Leukocyte Esterase 500 H, Urine RBC 0 SEEN, Urine WBC 10-25 SEEN, Ur Squamous Epith Cells 0-5 SEEN, Urine Bacteria 0 SEEN, Urine Mucus 0 SEEN 03/27/21 04:06: Sodium 136, Potassium 2.9 L, Chloride 97 L, Carbon Dioxide 29.0, Anion Gap 10, BUN 21 H, Creatinine 5.40 H, Estim Creat Clear Calc 14.00, Est GFR (MDRD) Af Amer 14 L, Est GFR (MDRD) Non-Af 11 L, BUN/Creatinine Ratio 3.9 L, Glucose 149 H, Calcium 7.7 L, Magnesium 1.7 03/27/21 04:06: Troponin I High Sens 41 03/27/21 05:56: Troponin I High Sens 38 Micro: Microbiology 03/26/21 20:33 Nasal Secretion SARS-CoV-2 Antigen (Rapid) - Final Radiography Diagnostic Testing: Radiology Impression Chest X-Ray 03/26/21 19:15 IMPRESSION: Partial resolution of bilateral airspace disease with decreasing left pleural effusion. at 1944 Reported and signed by: Montez Joaquin MD Electronically Signed: Montez Joaquin MD at 19:43 EDT Tel , Service support , Physical Exam Narrative Physical exam: General: Well-nourished, well-developed. Head: Normocephalic, atraumatic, no tenderness Eyes: PERRLA, EOMI ENT, no trauma, moist mucous membranes, no rhinorrhea Neck: Nontender, full range of motion, no spinal tenderness, deformities, step- off CVS: Tachycardia. S1-S2 present. No murmur, gallop or rub. Respiratory : Rhonchi; chest wall nontender, no wheezing Abdomen: Soft, nontender, nondistended, normal bowel sounds, no masses : Deferred Back: Nontender, no CVA tenderness, no midline spinal tenderness, deformities, step-offs Extremities: Nontender full range of motion, no trauma Skin: Normal color, no trauma, abrasions Neuro: Alert, oriented, cranial nerves II through XII grossly intact. Psychiatry: Normal mood. Normal affect. Not depressed. Not anxious. Assessment & Plan Assessment/Plan (1) Weakness: (2) Failure to thrive in adult: (3) ESRD (end stage renal disease) on dialysis: (4) Paroxysmal A-fib: PLAN: 1. A. fib with RVR, improved, status post amiodarone bolus, continue on oral amiodarone Not on oral anticoagulation 2. Recent acute non-STEMI, continue on aspirin, Plavix, statin, metoprolol 3. Debility, PT and OT to evaluate and treat 4. ESRD on hemodialysis 5. Rest of his chronic medical conditions including CAD, COPD, BPH all remained stable Home meds reviewed Charges/Coding Visit Charges Inpatient E&M: 16229 Subs Hosp L2
--- NOTE | 2021-03-27 09:25 | PCM.CONS.R ---
Assessment & Plan Assessment/Plan (1) ESRD (end stage renal disease) on dialysis: PLAN: due to PCKD dialysis later today and TTS. Hx noncompliance with dialysis treatments (2) Anemia: PLAN: KATE on dialysis (3) Weakness: PLAN: ECF placement (4) Persistent atrial fibrillation with RVR: PLAN: per primary (5) Alcohol addiction: QUALIFIERS: Substance use status: other alcohol-induced disorder Qualified Code(s): F10.288 - Alcohol dependence with other alcohol-induced disorder (6) Tobacco dependence: PLAN: continue to smoke (7) CAD (coronary artery disease): PLAN: s/p cath with PCI (8) Noncompliance of patient with renal dialysis: (9) Hypokalemia: PLAN: replace as needed HPI Consult Data Date of Consult: 03/27/21 HPI Narrative HPI Narrative: ALEJA RICHARD, is a 65 M with ESRD due to PCKD on HD TTS presents to [facility] for weakness, fatigue. Recently discharged on 9 AMA after treated for NSTEMI s/p PCI, afib with rvr treated with amiodarone, diltiazem last admit and now, SBO requiring NGT to suction. He is noncompliant with dialysis, misses at least one treatment a week on a frequent basis. Last dialysis was on Sat at outpt clinic. He is due for dialysis today. He remains in afib on amiodarone drip. Low potassium replaced. Denies chest pain, no abdominal pain, +BM. He was scheduled to move to [facility] but was cancelled due to gen weakness, debility. Here for ECF placement. States was set up at [facility] prior to admit by outpt SW. [facility] Medical History Adrenal adenoma Alcohol addiction Alcoholic cardiomyopathy Anemia due to chronic illness Atherosclerotic heart disease of [place] coronary artery without angina pectoris Atrial fibrillation with rapid ventricular response (04/2019) Back pain Benign hypertension BPH (benign prostatic hyperplasia) Cardiomyopathy in diseases classified elsewhere Chronic obstructive pulmonary disease Chronic renal failure, stage 4 (severe) Chronic serous otitis media of left ear COPD (chronic obstructive pulmonary disease) Current drinker of alcohol Diverticulosis End-stage renal disease on hemodialysis ESRD (end stage renal disease) on dialysis Hiatal hernia Hyperlipidemia Nicotine dependence Paroxysmal atrial fibrillation Persistent atrial fibrillation PKD (polycystic kidney disease) Problem with dialysis access Home Medications albuterol sulfate 2 mg/5 mL oral syrup 2 mg PO TID 12/15/19 [History Last Taken Unknown] Acapella #1 ea 04/05/20 [Rx Last Taken Unknown] electric wheel chair #1 ea 07/03/20 [Rx Last Taken Unknown] sertraline [Zoloft] 100 mg PO DAILY 03/08/21 [History Last Taken Unknown] Spiriva Respimat 2 puff INHALATION QDAY #1 ea 03/11/21 [Rx Last Taken Unknown] acetaminophen 650 mg PO Q8H PRN PRN #30 tab 03/11/21 [Rx Last Taken Unknown] albuterol sulfate 2 puff INHALATION Q4H PRN PRN #18 g 03/11/21 [Rx Last Taken Unknown] aspirin 81 mg PO DAILY #30 tab 03/11/21 [Rx Last Taken Unknown] fluticasone propion-salmeterol 1 inh INHALATION BID #60 ea 03/11/21 [Rx Last Taken Unknown] loratadine 10 mg PO DAILY #30 cap 03/11/21 [Rx Last Taken Unknown] nitroglycerin 0.4 mg SUBLINGUAL Q5-15M PRN #30 tab 03/11/21 [Rx Last Taken Unknown] tamsulosin 0.4 mg PO DAILY #30 cap 03/11/21 [Rx Last Taken 09/17/17] amiodarone 200 mg PO BID #60 tab 03/17/21 [Rx Last Taken Unknown] atorvastatin 40 mg PO QHS #30 tab 03/17/21 [Rx Last Taken Unknown] clopidogrel 75 mg PO DAILY #30 tab 03/17/21 [Rx Last Taken Unknown] diltiazem HCl 180 mg PO DAILY #30 cap 03/17/21 [Rx Last Taken Unknown] cetirizine [Zyrtec] 10 mg PO DAILY 03/26/21 [History Last Taken Unknown] sevelamer HCl [Renagel] 800 mg PO TID 03/26/21 [History Last Taken Unknown] Allergy/AdvReac Type Severity Reaction Status Date / Time Penicillins Allergy Unknown Verified 03/26/21 18:12 Family History Mother Cancer brain Father Cancer throat Surgical History History of angioplasty of peripheral vessel (07/2019) History of coronary artery stent placement Surgically constructed arteriovenous fistula Social History household members: none housing: apartment Smoking Status: Current every day smoker tobacco type: cigarettes alcohol intake: current Alcohol type: beer details: Notes 2-3 beers, QOD substance use type: does not use ROS Constitutional Constitutional: Reports weakness; Denies chills or fever(s) Cardiovascular Cardiovascular: Denies chest pain Respiratory/Chest Respiratory/Chest: Reports other Details: chronic cough ; Denies shortness of breath at rest Gastrointestinal Gastrointestinal: Denies abdominal pain, nausea or vomiting Musculoskeletal Musculoskeletal: Reports other Details: gen weakness Neurologic Neurologic: Denies seizures or tremor(s) Psychiatric Psychiatric: Reports anxiety Hematologic/Lymphatic Hematologic/Lymphatic: Reports anemia Physical Exam Const alert, oriented x3 and no apparent distress Resp Auscultation: rhonchi Cardio Cardio Narrative: afib with rvr on monitor GI non-tender and non-distended Palpation: soft Extremity Extremity Narrative: AVF left arm with thrill and bruit Neuro Sensorium / Orientation: awake and alert Psych cooperative Lab / Micro Data Result Diagrams: 03/26/21 19:35 03/27/21 04:06 Labs: Laboratory Results - last 24 hr 03/26/21 19:35: WBC 7.4, RBC 2.94 L, Hgb 8.6 L, Hct 27.6 L, MCV 93.9, MCH 29.3, MCHC 31.2 L, RDW Std Deviation 54.0 H, RDW Coeff of Karl 16.0 H, Plt Count 204, MPV 11.2, Immature Gran % (Auto) 0.300, Neut % (Auto) 70.2 H, Lymph % (Auto) 14.3 L, [place] % (Auto) 13.2 H, Eos % (Auto) 1.6, Baso % (Auto) 0.4, Absolute Neuts (auto) 5.2, Absolute Lymphs (auto) 1.06, Nucleated RBC % 0 03/26/21 19:35: Sodium 134 L, Potassium 3.1 L, Chloride 92 L, Carbon Dioxide 31.0, Anion Gap 11, BUN 19 H, Creatinine 4.99 H, Estim Creat Clear Calc 15.15, Est GFR (MDRD) Af Amer 15 L, Est GFR (MDRD) Non-Af 13 L, BUN/Creatinine Ratio 3.8 L, Glucose 109 H, Calcium 8.5 03/26/21 : Urine Color Yellow, Urine Clarity Clear, Urine pH 9.0, Ur Specific [place] 1.015, Urine Protein 100 H, Urine Glucose (UA) Normal, Urine Ketones Negative, Urine Occult Blood 50 H, Urine Nitrite Negative, Urine Bilirubin Negative, Urine Urobilinogen Normal, Ur Leukocyte Esterase 500 H, Urine RBC 0 SEEN, Urine WBC 10-25 SEEN, Ur Squamous Epith Cells 0-5 SEEN, Urine Bacteria 0 SEEN, Urine Mucus 0 SEEN 03/27/21 04:06: Sodium 136, Potassium 2.9 L, Chloride 97 L, Carbon Dioxide 29.0, Anion Gap 10, BUN 21 H, Creatinine 5.40 H, Estim Creat Clear Calc 14.00, Est GFR (MDRD) Af Amer 14 L, Est GFR (MDRD) Non-Af 11 L, BUN/Creatinine Ratio 3.9 L, Glucose 149 H, Calcium 7.7 L, Magnesium 1.7 03/27/21 04:06: Troponin I High Sens 41 03/27/21 05:56: Troponin I High Sens 38 Micro: Microbiology 03/26/21 20:33 Nasal Secretion SARS-CoV-2 Antigen (Rapid) - Final Radiology Impression Chest X-Ray 03/26/21 19:15 IMPRESSION: Partial resolution of bilateral airspace disease with decreasing left pleural effusion. at 1944 Reported and signed by: Montez Joaquin MD Electronically Signed: Montez Joaquin MD at 19:43 EDT Tel , Service support ,
--- NOTE | 2021-03-27 09:58 | CASEMGMT ---
Addendum entered by Francie Sexton 03/27/21 10:01: Patient also has a pillowcase maker with [employer], Elle Galindo ([phone]). MJ called her and left her a voice mail. Francie BROTHERS Original Note: Per Dr Perez patient told her he was set up to go to [facility]. MJ called [facility] and Chasity was in morning meeting. MJ will call back. Francie BROTHERS
[2021-03-27 10:06] LABS: Magnesium 1.7 mg/dL (1.6-2.6); Troponin-I HS 33 pg/mL (3.0-78.0)
[2021-03-27] MEDS: SEVELAMER CARBONATE 800 MG TABLET PO ×2 (10:16→12:15)
[2021-03-27] MEDS: Sertraline 100 MG Tablet PO (10:18)
[2021-03-27] MEDS: Tamsulosin HCl 0.4 MG Capsule PO (10:18)
[2021-03-27] MEDS: Clopidogrel Bisulfate 75 MG Tablet PO (10:18)
[2021-03-27] MEDS: Loratadine 10 MG Tablet PO (10:18)
[2021-03-27] MEDS: Aspirin E.C. 81 MG Tablet PO (10:19)
[2021-03-27] MEDS: Potassium Chloride Oral Tablet 20 MEQ 60 MEQ PO (11:20)
--- NOTE | 2021-03-27 11:44 | CASEMGMT ---
MJ received a return call from Chasity at [facility]. She said Hope from [facility] made the referral. He will be going to [facility], but he is currently too weak. They were working on getting him to [facility] from the community. MJ told her that he is back in the hospital. She asked SW to fax her his information. She asked when he would be ready. MJ told her possibly tomorrow or . [facility] [place] MJ then spoke with patient. Introduced self and role at [facility]. SW let him know SW spoke with Chasity at [facility] and we will get him over there when he is ready for discharge. Plan: [facility] pending patient being medically ready. Francie BROTHERS
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
--- NOTE | 2021-03-27 13:58 | CASEMGMT ---
Readmission chart review: 03/08-03/17/21 COPD exac, CP/EKG changes 03/27/21 thru current-Afib RVR, weakness Pt admitted to PCU for above and then left AMA 03/17/21 declining oxygen. Pt has been awaiting bed at [facility] and [facility] was setting up for pt to go there at discharge once we get approval but pt left AMA prior to that being arranged. APS was consulted at that pt left AMA. Pt then returned to [facility] ED on 03/26/21 for c/o SOB s/p pna dx. Pt admitted with general weakness but then was in Afib RVR and amio gtt started. Pt states went to stay with friend after leaving AMA and friend wouldn't let him take meds but pt brought his meds into ED. Pt states that TV was working on getting him into [facility] for some rehab prior to moving into [place]. Declan BARKER aware and plan is to d/c pt to [facility] once medically stable. CM to follow. Hernan REAGAN CM
[2021-03-27] MEDS: Metoprolol Tartrate 25 MG Tablet 12.5 MG PO (14:24)
[2021-03-27 16:21] LABS: Potassium 4.4 mmol/L (3.5-5.1)
--- NOTE | 2021-03-27 18:57 | NURSING ---
pandemic documentation started
--- NOTE | 2021-03-27 19:10 | DIALYSIS ---
Hemodialysis tx completed x 3.25 hours without complications. Pt tolerated tx well, fluid removed 2,500ml using crit-line monitor to B-profile. Vitals stable throughout tx. Verbal report given to TEZ Ibrahim post tx
[2021-03-27] MEDS: Menthol/Lanolin/Calamine/Znox 113 GM Tube 1 APPLIC TOPICAL (21:28)
[2021-03-27] MEDS: Acetaminophen 325 MG Tablet 650 MG PO (21:32)
--- NOTE | 2021-03-27 23:46 | EKG12_ITS ---
Test Reason : CP Blood Pressure : / mmHG Vent. Rate : 086 BPM Atrial Rate : 086 BPM P-R Int : 200 ms QRS Dur : 110 ms QT Int : 412 ms P-R-T Axes : 027 038 171 degrees QTc Int : 493 ms Normal sinus rhythm ST & T wave abnormality, consider anterolateral ischemia Prolonged QT Abnormal ECG When compared with ECG of 27-MAR-2021 03:23, MANUAL COMPARISON REQUIRED, DATA IS UNCONFIRMED Confirmed by GONZALO CERVANTES, CARA ([id number]), editorial assistant SEAN WEBB ([id number]) on 03/29/2021 10:44:53 AM Referred By: CLAIRE Confirmed By:CARA SÁNCHEZ MD
[2021-03-28] VITALS (22 sets, daily range): BP systolic 103–125; BP diastolic 62–79; PULSE 82–94; RESP 10–20; TEMP 36.2–37.3; O2SAT 98–100
[2021-03-28] MEDS: 0.9% Saline Lock 10 ML Syringe IV ×2 (00:23→10:08)
[2021-03-28] MEDS: Morphine 2 MG/ML Syringe 1 MG IV (00:23)
[2021-03-28 01:13] LABS: Troponin-I HS 25 pg/mL (3.0-78.0)
[2021-03-28 03:23] LABS: Troponin-I HS 28 pg/mL (3.0-78.0)
[2021-03-28] MEDS: Heparin Injection (Vial) 5,000 UNIT/ML VIAL 5000 UNIT SC ×2 (05:58→22:20)
[2021-03-28 06:39] LABS: Absolute Lymphocyte Count 0.97 X10^3/uL (0.83-4.51); Absolute Neutrophil Count 3.6 X10^3/uL (2.0-7.7); Basophil# 0.01 X10^3/uL; Basophil% 0.2 % (0-1); Eosinophil# 0.13 X10^3/uL; Eosinophils% 2.4 % (0-5); Hematocrit 22.1 % (40-54); Hemoglobin 6.8 g/dL (13.0-16.5); Lymphocyte # 0.97 X10^3/ul (0.83-4.51); Lymphocyte % 17.6 % (19-41); Mean Corp Hgb Conc 30.8 g/dL (32-36); Mean Corpuscular Hgb 29.4 pg (27.0-32.0); Mean Corpuscular Volume 95.7 fL (80-94); Mean Platelet Vol. 10.9 fl (6.2-12.0); Monocyte# 0.78 X10^3/uL; Monocyte% 14.2 % (0-10); NRBC Flagged by Analyzer 0 % (0-5); Neutrophil % 65.2 % (47-70); Platelet Count 159 K/mm3 (150-450); RBC Distribution Width CV 16.3 % (11.6-14.6); Red Blood Count 2.31 M/mm3 (4.6-6.2); White Blood Count 5.5 K/mm3 (4.4-11.0)
[2021-03-28 07:08] LABS: ALB/GLOB Ratio 0.4 RATIO (0.9-2.4); AST(SGOT) 10 U/L (15-37); Alanine Aminotransfer ALT/SGPT 16 U/L (16-61); Albumin, Serum 1.5 g/dL (3.2-5.0); Alkaline Phosphatase 90 U/L (45-117); Anion Gap 5 (5-15); BUN 10 mg/dL (7-18); BUN/Creat Ratio 3.5 RATIO (10-20); Calcium,Total 7.7 mg/dL (8.5-10.1); Chloride 100 mmol/L (98-107); Creatinine, Serum 2.83 mg/dL (0.70-1.30); EST Glomerular Filtration Rate 24 mL/min (>60); Est Glom Filt Rate - Afr Amer 29 mL/min (>60); Estimated Creatinine Clearance 26.72 ml/min; Globulin 3.7 g/dL (2.2-4.2); Glucose 100 mg/dL (74-106); Potassium 4.8 mmol/L (3.5-5.1); Protein, Total 5.2 g/dL (6.4-8.2); Sodium Level 135 mmol/L (136-145); Troponin-I HS 24 pg/mL (3.0-78.0)
[2021-03-28] MEDS: Budesonide Respules 0.5 MG/2 ML AMPUL.NEB. INHALATION ×2 (07:51→19:09)
[2021-03-28] MEDS: Ipratropium/Albuterol Sulfate 3 ML AMPUL.NEB INHALATION ×3 (07:51→19:09)
--- NOTE | 2021-03-28 08:55 | PCM.PN.BLA ---
Progress Note dialysis yesterday with 2.5L removed. Check phos while on binders. Hypokalemia resolved. Hgb dropped to 6.8g today. Likely need blood transfusion. Defer to primary service. Assessment & Plan Assessment/Plan (1) ESRD (end stage renal disease) on dialysis: PLAN: next dialysis tomorrow. Check phos while on binders (2) Atrial fibrillation and flutter: PLAN: cardiology following (3) Hypokalemia: PLAN: resolved (4) Anemia: PLAN: hgb 6.8g suggest blood transfusion. defer to primary service (5) Noncompliance of patient with renal dialysis: PLAN: hx noncompliance with dialysis, medical care
[2021-03-28] MEDS: SEVELAMER CARBONATE 800 MG TABLET PO ×2 (08:59→13:11)
[2021-03-28] MEDS: Menthol/Lanolin/Calamine/Znox 113 GM Tube 1 APPLIC TOPICAL (08:59)
[2021-03-28] MEDS: Aspirin E.C. 81 MG Tablet PO (09:00)
[2021-03-28] MEDS: Amiodarone 200 MG Tablet PO ×2 (09:00→22:14)
[2021-03-28] MEDS: Loratadine 10 MG Tablet PO (09:00)
[2021-03-28] MEDS: Metoprolol Tartrate 25 MG Tablet 12.5 MG PO ×2 (09:00→22:14)
[2021-03-28] MEDS: Tamsulosin HCl 0.4 MG Capsule PO (09:00)
[2021-03-28] MEDS: Clopidogrel Bisulfate 75 MG Tablet PO (09:01)
[2021-03-28] MEDS: Sertraline 100 MG Tablet PO (09:01)
[2021-03-28] MEDS: Magnesium Chloride 64 MG Delay Rel.Tablet 128 MG PO ×2 (09:09→22:20)
--- NOTE | 2021-03-28 09:33 | CASEMGMT ---
[facility] faxed PT/OT evaluations to [facility] and also wrote on fax face sheet that patient may be coming today. Francie BROTHERS
--- NOTE | 2021-03-28 09:53 | PCM.TXEXTCAR ---
Diet 03/26/21 23:50 Diet: Renal - General Food consistency:: Regular Liquid Consistency:: Regular/Thin Diet Comments: extra 1 oz protein/meat Q meal Routine Orders/Code Status O2 Liters per Minute: 3 O2 Frequency: Continuous Keep PO Greater than or Equal to (%): 94 Routine Lab Work: CBC (within 3 days) and - (renal panel within 3 days) Code Status: Full Code Wound(s) coccyx: Wound Type: Pressure Injury Therapies Weight Bearing: Weight bearing as tolerated Physical Therapy: Eval and Treat Occupational Therapy: Eval and Treat Problem/Diagnosis (1) ESRD (end stage renal disease) on dialysis: Status: Acute (2) Atrial fibrillation and flutter: Status: Acute (3) Hypokalemia: Status: Acute (4) Anemia: Status: Acute (5) Noncompliance of patient with renal dialysis: Status: Acute Allergies/Procedures Done in Hospital Allergies Penicillins Allergy (Verified 03/26/21 18:12) Unknown Type of Care/Length of Stay Estimated LOS: Convalescent Care Less Than 30 days Type of Care Needed: Skilled Rehab Potential: Good Prognosis: Good Additional Orders/Day of Discharge Day of Discharge: 03/28/21 Dietary and Speech Recommendations Dietitian Recommendations/Changes: Will continue general renal diet as ordered. Will add extra 1 oz protein Q meal as pt refuses all types of oral nutrition supplements due to poor tolerance (N/V). Discharge Plan Admission Admit Date/Time: 03/27/21 09:06 Primary Reason for Your Visit: Generalized weakness, A. fib with RVR Attending Provider: Ebonie Ortiz Primary Care Provider: Doron Recio Consulting Providers: Ely Perez ; Raheel Hinojosa Instructions Patient Instructions: ED Chest Pain, Noncardiac Discharge Orders/Prescriptions Prescriptions: New nicotine 21 mg/24 hr Patch 24 Hour 21 mg transdermal DAILY Qty: 0 RF: 0 metoprolol tartrate 25 mg Tablet 12.5 mg PO BID Qty: 0 RF: 0 Continued albuterol sulfate 2 mg/5 mL syrup 2 mg PO TID RF: 0 sertraline [Zoloft] 100 mg tablet 100 mg PO DAILY RF: 0 fluticasone propion-salmeterol 250-50 mcg/dose blister with device 1 inh INHALATION BID Qty: 60 RF: 1 acetaminophen 650 MG tablet extended release 650 mg PO Q8H PRN PRN (Reason: Pain Score 1-10/10) Qty: 30 RF: 1 tamsulosin 0.4 MG capsule 0.4 mg PO DAILY Qty: 30 RF: 1 nitroglycerin 0.4 mg tablet, sublingual 0.4 mg SUBLINGUAL Q5-15M PRN (Reason: chest pain) Qty: 30 RF: 1 albuterol sulfate 90 mcg/actuation HFA aerosol inhaler 2 puff inhalation Q4H PRN PRN (Reason: Sob &/Or Wheezing) Qty: 18 RF: 1 loratadine 10 MG capsule 10 mg PO DAILY Qty: 30 RF: 1 Spiriva Respimat 2.5 mcg/actuation mist 2 puff INHALATION QDAY Qty: 1 RF: 1 aspirin 81 mg tablet,delayed release (DR/EC) 81 mg PO DAILY Qty: 30 RF: 1 atorvastatin 40 mg tablet 40 mg PO QHS Qty: 30 RF: 0 clopidogrel 75 mg tablet 75 mg PO DAILY Qty: 30 RF: 0 diltiazem HCl 180 mg capsule,extended release 24hr 180 mg PO DAILY Qty: 30 RF: 0 amiodarone 200 mg tablet 200 mg PO BID Qty: 60 RF: 0 cetirizine [Zyrtec] 10 mg tablet 10 mg PO DAILY RF: 0 sevelamer HCl [Renagel] 800 mg tablet 800 mg PO TID RF: 0 Discontinued (DME) Acapella Qty: 1 RF: 0 (DME) electric wheel chair See Rx Instructions .Route .MEDSUPPLY Qty: 1 RF: 0 Referrals / Follow Up: Doron Recio MD [Primary Care Provider] - Within 2 Weeks Disposition Disposition (needs filled in before D/C Order can be placed): Shelter Facility
[2021-03-28] MEDS: Ondansetron 4 MG/2 ML Vial IV ×2 (10:08→19:09)
--- NOTE | 2021-03-28 10:14 | PCM.DC.SUM ---
Providers Date of Admission: 03/27/21 Date of Discharge: 03/28/21 Primary Care Physician: Dr. Doron Recio MD Consultations 03/26/21 23:50 Consult: Nephrology Routine Consulting Provider: Ely Perez Reason for Consult: ESRD on dialysis (fri, and friday) EMERGENT Consult: No Notified: Yes Date Notified: 03/27/21 Time Notified: 07:47 Method of Notification: Text 03/27/21 09:07 Consult: Cardiology Routine Consulting Provider: Raheel Hinojosa Reason for Consult: A fib with RVR EMERGENT Consult: No Notified: Yes Date Notified: 03/27/21 Time Notified: 10:33 Method of Notification: Text Reason For Visit: GENERALIZED WEAKNESS Diagnosis Discharge Diagnosis (1) ESRD (end stage renal disease) on dialysis: Status: Chronic Code(s): N18.6 - End stage renal disease; Z99.2 - Dependence on renal dialysis (2) Atrial fibrillation and flutter: Status: Resolved Code(s): I48.91 - Unspecified atrial fibrillation; I48.92 - Unspecified atrial flutter (3) Hypokalemia: Status: Resolved Code(s): E87.6 - Hypokalemia (4) Anemia: Status: Acute Code(s): D64.9 - Anemia, unspecified (5) Noncompliance of patient with renal dialysis: Status: Chronic Code(s): Z91.15 - Patient's noncompliance with renal dialysis (6) Debility: Status: Acute Code(s): R53.81 - Other malaise (7) Benign essential HTN: Status: Chronic Code(s): I10 - Essential (primary) hypertension (8) HLD (hyperlipidemia): Status: Chronic Code(s): E78.5 - Hyperlipidemia, unspecified (9) Cardiomyopathy: Status: Chronic Code(s): I42.9 - Cardiomyopathy, unspecified Medications at Discharge Home Medications albuterol sulfate 2 mg/5 mL oral syrup 2 mg PO TID 12/15/19 sertraline [Zoloft] 100 mg PO DAILY 03/08/21 Spiriva Respimat 2 puff INHALATION QDAY #1 ea 03/11/21 acetaminophen 650 mg PO Q8H PRN PRN #30 tab 03/11/21 albuterol sulfate 2 puff INHALATION Q4H PRN PRN #18 g 03/11/21 aspirin 81 mg PO DAILY #30 tab 03/11/21 fluticasone propion-salmeterol 1 inh INHALATION BID #60 ea 03/11/21 loratadine 10 mg PO DAILY #30 cap 03/11/21 nitroglycerin 0.4 mg SUBLINGUAL Q5-15M PRN #30 tab 03/11/21 tamsulosin 0.4 mg PO DAILY #30 cap 03/11/21 amiodarone 200 mg PO BID #60 tab 03/17/21 atorvastatin 40 mg PO QHS #30 tab 03/17/21 clopidogrel 75 mg PO DAILY #30 tab 03/17/21 diltiazem HCl 180 mg PO DAILY #30 cap 03/17/21 cetirizine [Zyrtec] 10 mg PO DAILY 03/26/21 sevelamer HCl [Renagel] 800 mg PO TID 03/26/21 metoprolol tartrate 12.5 mg PO BID #0 tab 03/28/21 nicotine 21 mg TRANSDERMAL DAILY #0 ea 03/28/21 Hospital Course Operations None Procedures None Summary of Care Provided Minutes Spent on Discharge: 50 Hospital Course: 65-year-old with past medical history of ESRD on hemodialysis who presented with progressive weakness. Patient recently signed out AGAINST MEDICAL ADVICE on after he was treated for non-ST elevation OH. He had a stent to his left circumflex artery at that time. He also developed atrial fibrillation and was on amiodarone and Cardizem. Patient was admitted to the PCU and found to have A. fib with RVR. He was started back on amiodarone drip. His heart rate became rate controlled and he was resumed on his home amiodarone. Patient had dialysis while here. He was noted on 03/28/21 to have hemoglobin of 6.8. He received 1 unit packed RBC. His repeat hemoglobin was 8.6. Patient denies any dark stools. Stool for occult blood was requested and was not obtained at the time of discharge. This will need to be followed up in the outpatient. Discussed with nephrology, patient will get erythropoietin at dialysis. Physical Exam Narrative Physical exam: General: Well-nourished, well-developed. Head: Normocephalic, atraumatic, no tenderness Eyes: PERRLA, EOMI ENT, no trauma, moist mucous membranes, no rhinorrhea Neck: Nontender, full range of motion, no spinal tenderness, deformities, step-off CVS: Tachycardia. S1-S2 present. Respiratory : Diminished Abdomen: Soft, nontender, nondistended, normal bowel sounds, no masses Weight / BMI Weight Weight: 75.8 kg Body Mass Index (BMI) 24.7 ABG / Lab / Microbiology Data Result Diagrams: 03/29/21 05:06 03/29/21 05:06 Laboratory: Laboratory Results - last 24 hr 03/27/21 15:41: Potassium 4.4 03/28/21 00:45: Troponin I High Sens 25 03/28/21 03:00: Troponin I High Sens 28 03/28/21 06:25: WBC 5.5, RBC 2.31 L, Hgb 6.8 L, Hct 22.1 L, MCV 95.7 H, MCH 29.4, MCHC 30.8 L, RDW Std Deviation 56.0 H, RDW Coeff of Karl 16.3 H, Plt Count 159, MPV 10.9, Immature Gran % (Auto) 0.400, Neut % (Auto) 65.2, Lymph % (Auto) 17.6 L, [place] % (Auto) 14.2 H, Eos % (Auto) 2.4, Baso % (Auto) 0.2, Absolute Neuts (auto) 3.6, Absolute Lymphs (auto) 0.97, Nucleated RBC % 0 03/28/21 06:25: Sodium 135 L, Potassium 4.8, Chloride 100, Carbon Dioxide 30.0, Anion Gap 5, BUN 10, Creatinine 2.83 H, Estim Creat Clear Calc 26.72, Est GFR (MDRD) Af Amer 29 L, Est GFR (MDRD) Non-Af 24 L, BUN/Creatinine Ratio 3.5 L, Glucose 100, Calcium 7.7 L, Total Bilirubin 0.40, AST 10 L, ALT 16, Alkaline Phosphatase 90, Troponin I High Sens 24, Total Protein 5.2 L, Albumin 1.5 L, Globulin 3.7, Albumin/Globulin Ratio 0.4 L 03/28/21 08:35: Blood Type Cancelled, Antibody Screen Cancelled 03/28/21 08:55: Crossmatch See Detail Microbiology: Microbiology 03/26/21 Unknown Urine, Clean Catch Urine Culture - Preliminary Culture exhibits no growth. 03/26/21 20:33 Nasal Secretion SARS-CoV-2 Antigen (Rapid) - Final D/C Instructions Discharge Diet: Renal Diet Meaningful Use Info Meaningful Use Diagnoses (Choose all that apply): None applicable Discharge Plan Admission Admit Date/Time: 03/27/21 09:06 Primary Reason for Your Visit: Generalized weakness, A. fib with RVR Attending Provider: Ebonie Ortiz Primary Care Provider: Doron Recio Consulting Providers: Ely Perez ; Raheel Hinojosa Instructions Patient Instructions: ED Chest Pain, Noncardiac Additional Instructions / Restrictions: Patient Problems: Altered Health Status related to Hospitalization Patient Goals: *Optimal Level of Health *Keep Appointments *Medication Compliance *Remain Safe Discharge Orders/Prescriptions Prescriptions: New nicotine 21 mg/24 hr Patch 24 Hour 21 mg transdermal DAILY Qty: 0 RF: 0 metoprolol tartrate 25 mg Tablet 12.5 mg PO BID Qty: 0 RF: 0 Continued albuterol sulfate 2 mg/5 mL syrup 2 mg PO TID RF: 0 sertraline [Zoloft] 100 mg tablet 100 mg PO DAILY RF: 0 fluticasone propion-salmeterol 250-50 mcg/dose blister with device 1 inh INHALATION BID Qty: 60 RF: 1 acetaminophen 650 MG tablet extended release 650 mg PO Q8H PRN PRN (Reason: Pain Score 1-10/10) Qty: 30 RF: 1 tamsulosin 0.4 MG capsule 0.4 mg PO DAILY Qty: 30 RF: 1 nitroglycerin 0.4 mg tablet, sublingual 0.4 mg SUBLINGUAL Q5-15M PRN (Reason: chest pain) Qty: 30 RF: 1 albuterol sulfate 90 mcg/actuation HFA aerosol inhaler 2 puff inhalation Q4H PRN PRN (Reason: Sob &/Or Wheezing) Qty: 18 RF: 1 loratadine 10 MG capsule 10 mg PO DAILY Qty: 30 RF: 1 Spiriva Respimat 2.5 mcg/actuation mist 2 puff INHALATION QDAY Qty: 1 RF: 1 aspirin 81 mg tablet,delayed release (DR/EC) 81 mg PO DAILY Qty: 30 RF: 1 atorvastatin 40 mg tablet 40 mg PO QHS Qty: 30 RF: 0 clopidogrel 75 mg tablet 75 mg PO DAILY Qty: 30 RF: 0 diltiazem HCl 180 mg capsule,extended release 24hr 180 mg PO DAILY Qty: 30 RF: 0 amiodarone 200 mg tablet 200 mg PO BID Qty: 60 RF: 0 cetirizine [Zyrtec] 10 mg tablet 10 mg PO DAILY RF: 0 sevelamer HCl [Renagel] 800 mg tablet 800 mg PO TID RF: 0 Discontinued (DME) Acapella Qty: 1 RF: 0 (DME) electric wheel chair See Rx Instructions .Route .MEDSUPPLY Qty: 1 RF: 0 Referrals / Follow Up: Doron Recio MD [Primary Care Provider] - Within 2 Weeks Disposition Disposition (needs filled in before D/C Order can be placed): Long-Term Facility Charges/Coding Visit Charges Inpatient E&M: 98949 Disch Hosp
--- NOTE | 2021-03-28 10:20 | CASEMGMT ---
Per note on 03/12, pt is active with [facility]. SStaten RN CM
[2021-03-28 10:32] LABS: Phosphorus 3.2 mg/dL (2.5-4.9)
[2021-03-28 10:34] LABS: Iron 42 ug/dL (65-175); Iron Binding Capacity,Total 277 ug/dL (250-450); PERCENT IRON SATURATION 15.2 % (15.0-55.0)
[2021-03-28] MEDS: Mag Hydrox/Al Hydrox/Simeth 30 ML UDC PO (10:35)
--- NOTE | 2021-03-28 10:46 | PHA.DC.MR ---
Pharmacy Service has performed discharge medication reconciliation for this patient. The patient's discharge medication list was reviewed for discrepancies and discrepancies were resolved. Home Medications albuterol sulfate 2 mg/5 mL oral syrup 2 mg PO TID 12/15/19 sertraline [Zoloft] 100 mg PO DAILY 03/08/21 Spiriva Respimat 2 puff INHALATION QDAY #1 ea 03/11/21 acetaminophen 650 mg PO Q8H PRN PRN #30 tab 03/11/21 albuterol sulfate 2 puff INHALATION Q4H PRN PRN #18 g 03/11/21 aspirin 81 mg PO DAILY #30 tab 03/11/21 fluticasone propion-salmeterol 1 inh INHALATION BID #60 ea 03/11/21 loratadine 10 mg PO DAILY #30 cap 03/11/21 nitroglycerin 0.4 mg SUBLINGUAL Q5-15M PRN #30 tab 03/11/21 tamsulosin 0.4 mg PO DAILY #30 cap 03/11/21 amiodarone 200 mg PO BID #60 tab 03/17/21 atorvastatin 40 mg PO QHS #30 tab 03/17/21 clopidogrel 75 mg PO DAILY #30 tab 03/17/21 diltiazem HCl 180 mg PO DAILY #30 cap 03/17/21 cetirizine [Zyrtec] 10 mg PO DAILY 03/26/21 sevelamer HCl [Renagel] 800 mg PO TID 03/26/21 metoprolol tartrate 12.5 mg PO BID #0 tab 03/28/21 nicotine 21 mg TRANSDERMAL DAILY #0 ea 03/28/21
--- NOTE | 2021-03-28 14:53 | CASEMGMT ---
MJ spoke with Chasity at [facility] and let her know patient will be coming today. She said she will need a COVID test from today. Await orders. Plan: d/c to [facility] under skilled level of care on a convalescent stay. [facility] will transport. Francie BROTHERS
--- NOTE | 2021-03-28 15:09 | CASEMGMT ---
MJ received a call from Chasity at [facility]. She asked if patient had transport set up for his dialysis. MJ told her SW is not sure but will ask patient. MJ spoke with patient and he said [facility] normally transports him. SW let him know that he will be going to [facility] today. MJ called [facility] and they will have to see if they have anyone that can pick him up at 430a. She will check and get back to . MJ in the meantime called [facility] and notified Chasity. She said they cannot transport patient to dialysis tomorrow. MJ is waiting on [facility] to get back to . MJ did update physician and RN. Francie Sexton [employer] FSCM DEVELOPER DENEEN
--- NOTE | 2021-03-28 15:28 | NURSING ---
Report called to nurse Roberto for pt d/c to [facility]
--- NOTE | 2021-03-28 15:57 | PN.HOSP_ITS ---
Objective Data Objective Data Vital Signs: Vital Signs Temp Pulse Resp BP Pulse Ox 97.6 F L 85 18 120/67 100 03/28/21 14:51 03/28/21 15:00 03/28/21 14:51 03/28/21 14:51 03/28/21 14:51 Oxygen Flow Rate (L/min) 3 Oxygen Delivery Method Nasal Cannula Weight: 75.8 kg Body Mass Index (BMI) 24.7 Intake & Output: Intake and Output for Last 24 Hours 03/26/21 03/27/21 03/28/21 23:59 23:59 23:59 Intake Total 860 / 980 760 / 760 Output Total 200 / 200 100 / 100 Balance 660 / 780 660 / 660 Lab / Micro Data Result Diagrams: 03/28/21 06:25 03/28/21 06:25 Labs: Laboratory Results - last 24 hr 03/27/21 15:41: Potassium 4.4 03/28/21 00:45: Troponin I High Sens 25 03/28/21 03:00: Troponin I High Sens 28 03/28/21 06:25: WBC 5.5, RBC 2.31 L, Hgb 6.8 L, Hct 22.1 L, MCV 95.7 H, MCH 29.4, MCHC 30.8 L, RDW Std Deviation 56.0 H, RDW Coeff of Karl 16.3 H, Plt Count 159, MPV 10.9, Immature Gran % (Auto) 0.400, Neut % (Auto) 65.2, Lymph % (Auto) 17.6 L, [place] % (Auto) 14.2 H, Eos % (Auto) 2.4, Baso % (Auto) 0.2, Absolute Ne uts (auto) 3.6, Absolute Lymphs (auto) 0.97, Nucleated RBC % 0 03/28/21 06:25: Sodium 135 L, Potassium 4.8, Chloride 100, Carbon Dioxide 30.0, Anion Gap 5, BUN 10, Creatinine 2.83 H, Estim Creat Clear Calc 26.72, Est GFR (MDRD) Af Amer 29 L, Est GFR (MDRD) Non-Af 24 L, BUN/Creatinine Ratio 3.5 L, Glucose 100, Calcium 7.7 L, Total Bilirubin 0.40, AST 10 L, ALT 16, Alkaline Phosphatase 90, Troponin I High Sens 24, Total Protein 5.2 L, Albumin 1.5 L, Globulin 3.7, Albumin/Globulin Ratio 0.4 L 03/28/21 08:35: Blood Type Cancelled, Antibody Screen Cancelled 03/28/21 08:55: Phosphorus 3.2 03/28/21 08:55: Blood Type O NEGATIVE, Antibody Screen NEGATIVE, Crossmatch See Detail 03/28/21 08:55: Iron 42 L, TIBC 277, Iron Saturation 15.2 Micro: Microbiology 03/26/21 Unknown Urine, Clean Catch Urine Culture - Preliminary Staphylococcus species 03/26/21 20:33 Nasal Secretion SARS-CoV-2 Antigen (Rapid) - Final Physical Exam Narrative Physical exam: General: Well-nourished, well-developed. Head: Normocephalic, atraumatic, no tenderness Eyes: PERRLA, EOMI ENT, no trauma, moist mucous membranes, no rhinorrhea Neck: Nontender, full range of motion, no spinal tenderness, deformities, step- off CVS: Tachycardia. S1-S2 present. Respiratory : Diminished Abdomen: Soft, nontender, nondistended, normal bowel sounds, no masses Assessment & Plan Assessment/Plan (1) ESRD (end stage renal disease) on dialysis: (2) Atrial fibrillation and flutter: (3) Hypokalemia: (4) Anemia: (5) Noncompliance of patient with renal dialysis: (6) Debility: (7) Benign essential HTN: (8) HLD (hyperlipidemia): (9) Cardiomyopathy: PLAN: 1. A. fib with RVR, improved, patient in normal sinus rhythm Continue on oral amiodarone We will hold off anticoagulation on account of anemia 2. Severe anemia, Hb 6.8, FOBT pending, iron study shows mixed picture 3. Recent acute non-STEMI, continue on aspirin, Plavix, statin, metoprolol 4. Debility, PT and OT to evaluate and treat 5. ESRD on hemodialysis 6. Rest of his chronic medical conditions including CAD, COPD, BPH all remained stable Home meds reviewed Charges/Coding Visit Charges Inpatient E&M: 38180 Subs Hosp L2
--- NOTE | 2021-03-28 16:33 | CASEMGMT ---
MJ spoke with Oliva at [facility] and she has not heard back from the uke driver that may have been able to transport patient. MJ called Chasity at [facility]. She got transport set up for dialysis for every day except for tomorrow. MJ told her SW will be in touch about d/c tomorrow. Francie Sexton SCHOOL SUPERVISOR [employer]EEN
--- NOTE | 2021-03-28 16:40 | CASEMGMT ---
SW did let patient, physician, Chasity gomez [facility], and charge gang weigher know that he will be going tomorrow. Francie Sexton BIOLOGY PROFESSOR DENEEN
--- NOTE | 2021-03-28 16:40 | CHAPLAIN ---
Type of Pastoral Visit _x__ Initial Visit ___ Follow-up Visit ___ On-call Visit ___ General Patient Visit ___ Spiritual Assessment ___ Family Conference ___ Bereavement ___ Rapid Response ___ Code Blue ___ Other (describe below) Pastoral Care Referral From _x__ Patient ___ Family ___ Nurse ___ Physician ___ Recruiting Team Lead ___ Ophthalmic Surgeon ___ Other (describe below) Sacrament/Intervention ___ Active listening ___ Anointing ___ Buddhist ___ Bereavement ___ Communion ___ Echo exploration ___ ___ Life review ___ Prayer ___ Reconciliation ___ Sacrament of Sick _x__ Supportive presence ___ Wedding ___ Other (describe below) Pastoral Comments no needs reported by patient
[2021-03-28] MEDS: Famotidine 20 MG Tablet PO (20:54)
[2021-03-28] MEDS: MELATONIN 3 MG TABLET PO (22:14)
[2021-03-28] MEDS: Atorvastatin Calcium 40 MG Tablet PO (22:14)
[2021-03-29] VITALS (9 sets, daily range): BP systolic 103–133; BP diastolic 63–78; PULSE 65–132; RESP 16–22; TEMP 36.9–37; O2SAT 95–100
--- NOTE | 2021-03-29 00:59 | PCS.PANDOC ---
PANDEMIC DOCUMENTATION INITIATED: Date: 02/26/2021 Time: 190
[2021-03-29] MEDS: Albuterol 2.5 MG/3 ML VIAL.NEB. INHALATION (04:00)
[2021-03-29 05:41] LABS: Absolute Neutrophil Count 4.9 X10^3/uL (2.0-7.7); Basophil# 0.02 X10^3/uL; Basophil% 0.3 % (0-1); Eosinophil# 0.12 X10^3/uL; Eosinophils% 1.7 % (0-5); Hematocrit 27.8 % (40-54); Hemoglobin 8.6 g/dL (13.0-16.5); Lymphocyte % 13.1 % (19-41); Mean Corp Hgb Conc 30.9 g/dL (32-36); Mean Corpuscular Hgb 29.6 pg (27.0-32.0); Mean Corpuscular Volume 95.5 fL (80-94); Mean Platelet Vol. 11.1 fl (6.2-12.0); Monocyte# 0.84 X10^3/uL; Monocyte% 12.2 % (0-10); NRBC Flagged by Analyzer 0 % (0-5); Neutrophil # 4.94 X10^3/uL (2.7-7.7); Neutrophil % 72.1 % (47-70); Platelet Count 179 K/mm3 (150-450); RBC Distribution Width CV 15.8 % (11.6-14.6); RBC Distribution Width SD 54.8 fl (35.1-43.9); Red Blood Count 2.91 M/mm3 (4.6-6.2); White Blood Count 6.9 K/mm3 (4.4-11.0)
[2021-03-29] MEDS: Heparin Injection (Vial) 5,000 UNIT/ML VIAL 5000 UNIT SC (05:41)
[2021-03-29 06:11] LABS: ALB/GLOB Ratio 0.4 RATIO (0.9-2.4); AST(SGOT) 10 U/L (15-37); Alanine Aminotransfer ALT/SGPT 15 U/L (16-61); Albumin, Serum 1.5 g/dL (3.2-5.0); Alkaline Phosphatase 90 U/L (45-117); Anion Gap 5 (5-15); BUN 20 mg/dL (7-18); BUN/Creat Ratio 5.2 RATIO (10-20); Calcium,Total 8.4 mg/dL (8.5-10.1); Chloride 100 mmol/L (98-107); Creatinine, Serum 3.81 mg/dL (0.70-1.30); EST Glomerular Filtration Rate 17 mL/min (>60); Est Glom Filt Rate - Afr Amer 21 mL/min (>60); Estimated Creatinine Clearance 19.85 ml/min; Glucose 89 mg/dL (74-106); Potassium 5.6 mmol/L (3.5-5.1); Protein, Total 5.5 g/dL (6.4-8.2); Sodium Level 133 mmol/L (136-145)
[2021-03-29] MEDS: Budesonide Respules 0.5 MG/2 ML AMPUL.NEB. INHALATION (07:12)
[2021-03-29] MEDS: Ipratropium/Albuterol Sulfate 3 ML AMPUL.NEB INHALATION ×2 (07:12→12:53)
--- NOTE | 2021-03-29 09:02 | PN.RENAL_ITS ---
Subjective Subjective seen on dialysis, vital stable. Rate controlled Objective Data Objective Data Vital Signs: Vital Signs Temp Pulse Resp BP Pulse Ox 98.6 F 89 16 130/74 H 96 03/29/21 07:41 03/29/21 08:01 03/29/21 07:41 03/29/21 07:41 03/29/21 07:41 Oxygen Flow Rate (L/min) 3.5 Oxygen Delivery Method Room Air Weight: 76 kg Body Mass Index (BMI) 24.7 Intake & Output: Intake and Output for Last 24 Hours 03/27/21 03/28/21 03/29/21 23:59 23:59 23:59 Intake Total 860 / 980 760 / 760 Output Total 200 / 200 100 / 100 Balance 660 / 780 660 / 660 Lab / Micro Data Result Diagrams: 03/29/21 05:06 03/29/21 05:06 Labs: Laboratory Results - last 24 hr 03/28/21 08:35: Blood Type Cancelled, Antibody Screen Cancelled 03/28/21 08:55: Phosphorus 3.2 03/28/21 08:55: Blood Type O NEGATIVE, Antibody Screen NEGATIVE, Crossmatch See Detail 03/28/21 08:55: Iron 42 L, TIBC 277, Iron Saturation 15.2 03/28/21 16:19: Hgb 9.0 L, Hct 31.0 L 03/29/21 05:06: WBC 6.9, RBC 2.91 L, Hgb 8.6 L, Hct 27.8 L, MCV 95.5 H, MCH 29.6, MCHC 30.9 L, RDW Std Deviation 54.8 H, RDW Coeff of Karl 15.8 H, Plt Count 179, MPV 11.1, Immature Gran % (Auto) 0.600, Neut % (Auto) 72.1 H, Lymph % (Auto) 13.1 L, [place] % (Auto) 12.2 H, Eos % (Auto) 1.7, Baso % (Auto) 0.3, Absolute Neuts (auto) 4.9, Absolute Lymphs (auto) 0.90, Nucleated RBC % 0 03/29/21 05:06: Sodium 133 L, Potassium 5.6 H, Chloride 100, Carbon Dioxide 28.0, Anion Gap 5, BUN 20 H, Creatinine 3.81 H, Estim Creat Clear Calc 19.85, Est GFR (MDRD) Af Amer 21 L, Est GFR (MDRD) Non-Af 17 L, BUN/Creatinine Ratio 5.2 L, Glucose 89, Calcium 8.4 L, Total Bilirubin 0.50, AST 10 L, ALT 15 L, Alkaline Phosphatase 90, Total Protein 5.5 L, Albumin 1.5 L, Globulin 4.0, Albumin/Globulin Ratio 0.4 L Micro: Microbiology 03/26/21 Unknown Urine, Clean Catch Urine Culture - Final Staphylococcus epidermidis 03/26/21 20:33 Nasal Secretion SARS-CoV-2 Antigen (Rapid) - Final Physical Exam Const alert and oriented x3 Resp Auscultation: rhonchi Cardio Cardio Narrative: afib GI non-tender Palpation: soft Extremity Extremity Narrative: edema Assessment & Plan Assessment/Plan (1) ESRD (end stage renal disease) on dialysis: PLAN: dialysis today (2) Atrial fibrillation and flutter: PLAN: cardiology following (3) Hypokalemia: PLAN: resolved (4) Anemia: PLAN: s/p blood transfusion. epo 10K today (5) Noncompliance of patient with renal dialysis: PLAN: hx noncompliance with dialysis, medical care
[2021-03-29] MEDS: SEVELAMER CARBONATE 800 MG TABLET PO (11:16)
[2021-03-29] MEDS: Famotidine 20 MG Tablet PO (11:16)
[2021-03-29] MEDS: Loratadine 10 MG Tablet PO (11:22)
[2021-03-29] MEDS: Epoetin Alfa epbx 10,000 UNITS/ML 10000 UNIT IV (11:22)
[2021-03-29] MEDS: Amiodarone 200 MG Tablet PO (11:23)
[2021-03-29] MEDS: Aspirin E.C. 81 MG Tablet PO (11:23)
[2021-03-29] MEDS: Clopidogrel Bisulfate 75 MG Tablet PO (11:23)
[2021-03-29] MEDS: Metoprolol Tartrate 25 MG Tablet 12.5 MG PO (11:23)
[2021-03-29] MEDS: Menthol/Lanolin/Calamine/Znox 113 GM Tube 1 APPLIC TOPICAL (11:24)
--- NOTE | 2021-03-29 12:07 | DIALYSIS ---
Hemodialysis completed. 1 liter removed. Patient tolerated well. Bruit and thrill present post needle removal. Next HD will be Friday03/31/21. Patient is going to longterm for additional rehab today.
== END 2021-03-29 13:20 | disposition skilled nursing facility (03) | DRG 280 ==
LOC: ED 22:14 → PCU 23:00
PROVIDERS: Internal Medicine Nephrology; Admitting Provider Hospitalist; Emergency Provider Emergency Medicine; PCP Family Medicine; Visit Provider Internal Medicine
DX: I48.0 Paroxysmal atrial fibrillation (principal); N18.6 End stage renal disease; I21.4 Non-ST elevation (NSTEMI) myocardial infarction; I12.0 Hypertensive chronic kidney disease with stage 5 chronic kidney disease or end stage renal disease; Q61.3 Polycystic kidney, unspecified; Z99.2 Dependence on renal dialysis; Z99.3 Dependence on wheelchair; Z99.81 Dependence on supplemental oxygen; J44.9 Chronic obstructive pulmonary disease, unspecified; Z79.899 Other long term (current) drug therapy; F17.210 Nicotine dependence, cigarettes, uncomplicated; Z95.5 Presence of coronary angioplasty implant and graft; R62.7 Adult failure to thrive; N40.0 Benign prostatic hyperplasia without lower urinary tract symptoms; I25.10 Atherosclerotic heart disease of native coronary artery without angina pectoris; R53.81 Other malaise; Z91.15 Patient's noncompliance with renal dialysis; D63.1 Anemia in chronic kidney disease; F10.20 Alcohol dependence, uncomplicated; E87.6 Hypokalemia; I42.6 Alcoholic cardiomyopathy; E78.5 Hyperlipidemia, unspecified; I48.92 Unspecified atrial flutter
CPT/HCPCS: 36415; 71046; 80048; 80053; 81001; 83540; 83550; 83735; 84100; 84132; 84484; 85014; 85018; 85025; 86850; 86900; 86901; 86920; 86922; 87077; 87086; 87088; 87186; 87426; 90937; 93005; 94640; 97162; 97166; 97802; 99285; 99406; J7030; J7040; P9016; A4216; G0257; J2405; Q5106

== ENCOUNTER 2021-05-31 13:05 | Inpatient (IN) | payer MEDICARE, MEDICAID, SELFPAY ==
[2021-05-31] VITALS (12 sets, daily range): BP systolic 99–143; BP diastolic 50–76; PULSE 75–89; RESP 16–24; TEMP 36.4–37.1; O2SAT 94–100; BMI 27.4; BMI 26.5
--- NOTE | 2021-05-31 13:17 | EKG12_ITS ---
Test Reason : CP Blood Pressure : / mmHG Vent. Rate : 076 BPM Atrial Rate : 076 BPM P-R Int : 170 ms QRS Dur : 110 ms QT Int : 450 ms P-R-T Axes : 036 040 117 degrees QTc Int : 506 ms Sinus rhythm with occasional Premature ventricular complexes Marked ST abnormality, possible lateral subendocardial injury Prolonged QT Abnormal ECG Confirmed by WINNIE CERVANTES, RAMU ([id number]), subeditor SEAN WEBB ([id number]) on 06/01/2021 1:57:22 P M Referred By: ARAMIS Confirmed By:BOB ZHOU MD
--- NOTE | 2021-05-31 13:18 | ED.VIS.CHEST ---
HPI History of Present Illness Chief Complaint: Chest Pain Informant: patient Narrative Narrative: Patient is a 65-year-old male with complex medical history including coronary artery disease, end-stage renal disease on hemodialysis, proximal atrial fibrillation and chronic back pain as well as chronic respiratory failure on 5 L of oxygen at baseline presenting with worsening back pain and shortness of breath. Patient also notes he started having chest pain today. Having worsening back pain for some time now. He states is now higher up in his back. He has a chronic cough which is unchanged. He is on his baseline oxygen. He is in in a wheelchair at baseline. He does have chronic peripheral edema but does not think it is changed. He states the chest pain is in the center of his chest and it has been going on today. It does not radiate. It is intermittent in nature. Patient did have a full session of hemodialysis today. He denies any fever or weight change. Denies any known sick contacts. He notes he was referred to pain management and has an appointment this coming Friday. [facility] Medical History (Updated 05/31/21 @ 15:[address] Rema Matamoros, ) Adrenal adenoma Alcohol addiction Alcoholic cardiomyopathy Anemia due to chronic illness Atherosclerotic heart disease of [place] coronary artery without angina pectoris Atrial fibrillation and flutter Atrial fibrillation with rapid ventricular response (04/2019) Back pain Benign essential HTN Benign hypertension BPH (benign prostatic hyperplasia) Cardiomyopathy in diseases classified elsewhere Chronic obstructive pulmonary disease Chronic renal failure, stage 4 (severe) Chronic serous otitis media of left ear COPD (chronic obstructive pulmonary disease) Current drinker of alcohol Diverticulosis End-stage renal disease on hemodialysis ESRD (end stage renal disease) on dialysis Hiatal hernia HLD (hyperlipidemia) Hyperlipidemia Nicotine dependence Paroxysmal atrial fibrillation Persistent atrial fibrillation PKD (polycystic kidney disease) Problem with dialysis access Home Medications albuterol sulfate 2 mg/5 mL oral syrup 2 mg PO TID 12/15/19 [History Last Taken 05/31/21] sertraline [Zoloft] 100 mg PO DAILY 03/08/21 [History Last Taken 05/31/21] aspirin 81 mg PO DAILY #30 tab 03/11/21 [Rx Last Taken 05/31/21] tamsulosin 0.4 mg PO DAILY #30 cap 03/11/21 [Rx Last Taken 05/31/21] amiodarone 200 mg PO BID #60 tab 03/17/21 [Rx Last Taken 05/31/21] clopidogrel 75 mg PO DAILY #30 tab 03/17/21 [Rx Last Taken 05/31/21] diltiazem HCl 180 mg PO DAILY #30 cap 03/17/21 [Rx Last Taken 05/31/21] sevelamer HCl [Renagel] 800 mg PO TID 03/26/21 [History Last Taken 05/31/21] buspirone 5 mg PO BID 05/31/21 [History Last Taken 05/31/21] fluticasone propion-salmeterol [Wixela Inhub] 1 inh INHALATION BID 05/31/21 [History Last Taken 05/31/21] loratadine 10 mg PO QODAY 05/31/21 [History Last Taken 05/30/21] lovastatin 40 mg PO QPM 05/31/21 [History Last Taken 05/25/21] metoprolol succinate 12.5 mg PO BID 05/31/21 [History Last Taken 05/31/21] tiotropium bromide [Spiriva with HandiHaler] 18 mcg INHALATION DAILY 05/31/21 [History Last Taken 05/31/21] Allergy/AdvReac Type Severity Reaction Status Date / Time Penicillins Allergy Unknown Verified 05/31/21 13:11 Family History Mother Cancer brain Father Cancer throat Surgical History History of angioplasty of peripheral vessel (07/2019) History of coronary artery stent placement Surgically constructed arteriovenous fistula Social History household members: none housing: apartment Smoking Status: Current every day smoker tobacco type: cigarettes alcohol intake: current Alcohol type: beer details: Notes 2-3 beers, QOD substance use type: does not use ROS ROS ED Constitutional Constitutional ED: Denies chills or fever(s) Eyes Eyes: Denies change in vision ENT ENT ED: Denies ear pain, rhinorrhea or sore throat Cardiovascular Cardiovascular: Reports chest pain Respiratory/Chest Respiratory/Chest: Reports cough, dyspnea and sputum Gastrointestinal Gastrointestinal: Denies abdominal pain, nausea or vomiting Genitourinary Genitourinary ED: Reports other Details: anuric Musculoskeletal Musculoskeletal: Reports back pain; Denies myalgias Integumentary Denies rash Neurologic Neurologic: Denies headache(s), paresthesias or weakness Psychiatric Psychiatric: Denies anxiety or depression EXAM Physical Exam Const Vital Signs: 05/31/21 13:06 05/31/21 13:21 05/31/21 13:27 Temperature 97.9 F Temperature Source Oral Pulse Rate 76 Respiratory Rate 20 H Respiratory Effort Short of Breath Blood Pressure 136/62 H Blood Pressure Mean 86 Pulse Ox 100 Oxygen Delivery Method Nasal Cannula Nasal Cannula Oxygen Flow Rate (L/min) 5 5 05/31/21 14:05 Temperature Temperature Source Pulse Rate 78 Respiratory Rate 17 Respiratory Effort Blood Pressure 120/58 L Blood Pressure Mean 78 Pulse Ox 100 Oxygen Delivery Method Nasal Cannula Oxygen Flow Rate (L/min) 4 Positive well nourished and well developed General Appearance ED: well developed and NAD HEENT Reports dry mucous membranes normocephalic and atraumatic Mouth ED: Yes dry mucous membranes Mouth: dry mucous membranes Eyes PERRL and EOMs intact bilaterally Neck supple Chest Wall inspection of chest normal and palpation of chest normal Resp normal respiratory effort Auscultation: rales and diminished lung sounds Cardio regular rate, regular rhythm and no murmurs GI normal to inspection, nondistended, normoactive bowel sounds Back/Spine Thoracic Spine / Upper Back: thoracic spinal tenderness T6 and T7; Negative for paraspinal muscle spasm Extremity normal to inspection Extremity Narrative: AV fistula LUE 2+ pitting edema LE General Extremety ED: Yes edema General Extremity: edema Neuro oriented x3 Sensorium / Orientation: awake and alert Motor Exam: general weakness Psych mental status grossly normal Skin no rashes or lesions noted and no wounds MDM MDM MDM Narrative Medical decision making narrative: Patient is evaluated for chest pain, difficulty breathing and back pain. Back pain has been going on for at least a month and has been referred to pain management for it. Chest pain shortness of breath started today. Initial cardiac work-up is not consistent with ACS as he has normal troponin and no acute ischemic changes. Chest x-ray does show pleural effusion and multifocal pneumonia. Patient is started on broad-spectrum antibiotics including vancomycin and cefepime. His work-up is otherwise normal. He does have end-stage renal disease and his kidney function is consistent with that. He received a full dialysis session today and he does not require emergent dialysis at this time. Patient is admitted to medicine service for further treatment. He is agreeable with this plan of care. X-ray of thoracic spine obtained as patient is having midline tenderness. No acute fracture seen. Lab Data Attestation: I reviewed the patient's lab results. Labs: Laboratory Results - last 24 hr 05/31/21 05/31/21 05/31/21 13:26 13:26 13:26 WBC 8.3 RBC 2.99 L Hgb 9.1 L Hct 29.5 L MCV 98.7 H MCH 30.4 MCHC 30.8 L RDW Std Deviation 68.4 H RDW Coeff of Karl 19.3 H Plt Count 253 MPV 10.3 Immature Gran % (Auto) 0.500 Neut % (Auto) 72.1 H Lymph % (Auto) 11.5 L [place] % (Auto) 14.1 H Eos % (Auto) 1.3 Baso % (Auto) 0.5 Absolute Neuts (auto) 6.0 Absolute Lymphs (auto) 0.96 Nucleated RBC % 0 Anisocytosis 1+ PT Cancelled INR Cancelled Sodium Cancelled Potassium Cancelled Chloride Cancelled Carbon Dioxide Cancelled Anion Gap Cancelled BUN Cancelled Creatinine Cancelled Estim Creat Clear Calc Cancelled Est GFR (MDRD) Af Amer Cancelled Est GFR (MDRD) Non-Af Cancelled BUN/Creatinine Ratio Cancelled Glucose Cancelled Calcium Cancelled Troponin I High Sens Cancelled 05/31/21 05/31/21 05/31/21 13:49 14:00 14:20 WBC RBC Hgb Hct MCV MCH MCHC RDW Std Deviation RDW Coeff of Karl Plt Count MPV Immature Gran % (Auto) Neut % (Auto) Lymph % (Auto) [place] % (Auto) Eos % (Auto) Baso % (Auto) Absolute Neuts (auto) Absolute Lymphs (auto) Nucleated RBC % Anisocytosis PT Cancelled 13.6 INR Cancelled 1.1 Sodium 133 L Potassium 3.4 L Chloride 92 L Carbon Dioxide 30.0 Anion Gap 11 BUN 12 Creatinine 2.50 H Estim Creat Clear Calc 30.24 Est GFR (MDRD) Af Amer 34 L Est GFR (MDRD) Non-Af 28 L BUN/Creatinine Ratio 4.8 L Glucose 79 Calcium 8.0 L Troponin I High Sens 20 Radiography Chest X-Ray - ED: 1 View, Read by ED Physician, Read by Radiologist, CHF, Right Infiltrate, Left Infiltrate and Left Effusion Diagnostic Testing: Clinical Impression(s) from Imaging Studies Chest X-Ray 05/31/21 13:35 IMPRESSION: Mild degree of CHF with bibasilar infiltrates worse at the left lung base. Blunting of both costophrenic angles. Electronically Signed: Ronald Johnson MD at 14:14 EST , Service support , Rhythm Strip Rhythm Strip: Sinus Rhythm Rate: 76 Ectopy: PVC(s) EKG Initial EKG: Attestation: I personally reviewed and interpreted this EKG as follows: Interpretation: Sinus Rhythm Comments: Normal sinus rhythm at a rate of 76 PVCs present Normal RI and QRS Prolonged QTC at 506 Normal axis Nonspecific T wave flattening in lateral leads Discharge Plan Triage Chief Complaint: Chest Pain ED Provider: Rema Matamoros Dx/Rx/DC Orders Clinical Impression: Multifocal pneumonia, Chronic respiratory failure with hypoxia, Chronic thoracic back pain, Chest pain Primary Care Provider: Doron Recio Disposition Disposition: Acute Care Hospital [facility]
[2021-05-31] MEDS: Morphine 4 MG/ML Syringe IV (13:25)
[2021-05-31] MEDS: Aspirin 81 MG TAB.CHEW 162 MG PO (13:25)
--- NOTE | 2021-05-31 13:35 | RAD_ITS ---
STUDY: X-RAY CHEST REASON FOR EXAM: Male, 65 years old. Chest pain following dialysis. TECHNIQUE: Single AP portable view of the chest. COMPARISON: Comparison is made with prior examination dated 03/26/2021. FINDINGS: EKG electrodes are seen. There is evidence of vascular congestion and CHF with bibasilar atelectasis and/or infiltrates worse at the left lung base. Blunting of both costophrenic angles. Normal size heart. Normal mediastinum and ania. Normal visualized pulmonary arteries. There is atherosclerotic tortuosity of the aortic arch and descending thoracic aorta. There are diffuse degenerative changes of the visualized thoracic spine. Normal visualized ribs, clavicles, and shoulders. There is no demonstrated abnormality of the visualized soft tissue structures of the upper abdomen. RAD/Chest 1 View (Portable) IMPRESSION: Mild degree of CHF with bibasilar infiltrates worse at the left lung base. Blunting of both costophrenic angles. Electronically Signed: Ronald Johnson MD at 14:14 EST , Service support ,
[2021-05-31 13:37] LABS: Absolute Lymphocyte Count 0.96 X10^3/uL (0.83-4.51); Basophil# 0.04 X10^3/uL; Basophil% 0.5 % (0-1); Eosinophil# 0.11 X10^3/uL; Eosinophils% 1.3 % (0-5); Hematocrit 29.5 % (40-54); Hemoglobin 9.1 g/dL (13.0-16.5); Lymphocyte # 0.96 X10^3/ul (0.83-4.51); Lymphocyte % 11.5 % (19-41); Mean Corp Hgb Conc 30.8 g/dL (32-36); Mean Corpuscular Hgb 30.4 pg (27.0-32.0); Mean Corpuscular Volume 98.7 fL (80-94); Mean Platelet Vol. 10.3 fl (6.2-12.0); Monocyte# 1.17 X10^3/uL; Monocyte% 14.1 % (0-10); NRBC Flagged by Analyzer 0 % (0-5); Neutrophil % 72.1 % (47-70); POSITIVE MORPHOLOGY YES; Platelet Count 253 K/mm3 (150-450); RBC Distribution Width CV 19.3 % (11.6-14.6); RBC Distribution Width SD 68.4 fl (35.1-43.9); Red Blood Count 2.99 M/mm3 (4.6-6.2); White Blood Count 8.3 K/mm3 (4.4-11.0)
[2021-05-31 13:38] LABS: Differential Indicated SCAN CRITERIA MET
[2021-05-31 14:05] LABS: Anisocytosis 1+
[2021-05-31 14:29] LABS: Anion Gap 11 (5-15); BUN 12 mg/dL (7-18); BUN/Creat Ratio 4.8 RATIO (10-20); Chloride 92 mmol/L (98-107); EST Glomerular Filtration Rate 28 mL/min (>60); Est Glom Filt Rate - Afr Amer 34 mL/min (>60); Estimated Creatinine Clearance 30.24 ml/min; Glucose 79 mg/dL (74-106); Potassium 3.4 mmol/L (3.5-5.1); Sodium Level 133 mmol/L (136-145); Troponin-I HS 20 pg/mL (3.0-78.0)
[2021-05-31 14:34] LABS: International Normalized Ratio 1.1; Prothrombin Time (Protime)PT. 13.6 SECONDS (11.7-14.9)
[2021-05-31] MEDS: HYDROcodone Bitartrate/Apap 5/325 Tablet PO (14:36)
--- NOTE | 2021-05-31 15:00 | RAD_ITS ---
STUDY: X-RAY - THORACIC SPINE REASON FOR EXAM: Male, 65 years old. Back pain TECHNIQUE: 3 view(s) of the thoracic spine were obtained. COMPARISON: None. FINDINGS: Normal kyphosis of the thoracic spine. There is no substantial scoliosis. There is demineralization of the thoracic spine with endplate spondylosis. There is multilevel disc space narrowing of the thoracic spine. Loss of height of a lower dorsal vertebrae. Tortuosity and calcification of the descending thoracic aorta. RAD/Thoracic Spine 3 Views IMPRESSION: Loss of height of a lower dorsal vertebrae. Degenerative changes. Electronically Signed: Ronald Johnson MD at 15:19 EST , Service support ,
--- NOTE | 2021-05-31 15:31 | HP.PCM_ITS ---
Documented by User: DUGLAS BallardC 05/31/21 15:46 HPI - General General Date of Admission: 05/31/21 Date of Service: 05/31/21 Chief Complaint: Shortness of breath HPI Narrative ALEJA RICHARD, is a 65 M who presents with complaints of increased shortness of breath and chest pain. Patient states that he was here approximately 2 months ago for pneumonia. Patient states that the chest pain is chronic and comes and goes intermittently. Patient states that when the chest pain comes on it is a sharp pain and last anywhere from an hour to an hour and a half. Patient states that he is increasingly short of breath more so on exertion and that he has been having trouble even getting dressed without becoming short of breath. Patient is on 5 L nasal cannula oxygen which is patient's baseline oxygen use. Patient reports having dialysis earlier today and chest pain onset was directly after dialysis. [facility] Medical History Adrenal adenoma Alcohol addiction Alcoholic cardiomyopathy Anemia due to chronic illness Atherosclerotic heart disease of [place] coronary artery without angina pectoris Atrial fibrillation and flutter Atrial fibrillation with rapid ventricular response (04/2019) Back pain Benign essential HTN Benign hypertension BPH (benign prostatic hyperplasia) Cardiomyopathy in diseases classified elsewhere Chronic obstructive pulmonary disease Chronic renal failure, stage 4 (severe) Chronic serous otitis media of left ear COPD (chronic obstructive pulmonary disease) Current drinker of alcohol Diverticulosis End-stage renal disease on hemodialysis ESRD (end stage renal disease) on dialysis Hiatal hernia HLD (hyperlipidemia) Hyperlipidemia Nicotine dependence Paroxysmal atrial fibrillation Persistent atrial fibrillation PKD (polycystic kidney disease) Problem with dialysis access Home Medications albuterol sulfate 2 mg/5 mL oral syrup 2 mg PO TID 12/15/19 [History Last Taken 05/31/21] sertraline [Zoloft] 100 mg PO DAILY 03/08/21 [History Last Taken 05/31/21] aspirin 81 mg PO DAILY #30 tab 03/11/21 [Rx Last Taken 05/31/21] tamsulosin 0.4 mg PO DAILY #30 cap 03/11/21 [Rx Last Taken 05/31/21] amiodarone 200 mg PO BID #60 tab 03/17/21 [Rx Last Taken 05/31/21] clopidogrel 75 mg PO DAILY #30 tab 03/17/21 [Rx Last Taken 05/31/21] diltiazem HCl 180 mg PO DAILY #30 cap 03/17/21 [Rx Last Taken 05/31/21] sevelamer HCl [Renagel] 800 mg PO TID 03/26/21 [History Last Taken 05/31/21] buspirone 5 mg PO BID 05/31/21 [History Last Taken 05/31/21] fluticasone propion-salmeterol [Wixela Inhub] 1 inh INHALATION BID 05/31/21 [Hi story Last Taken 05/31/21] loratadine 10 mg PO QODAY 05/31/21 [History Last Taken 05/30/21] lovastatin 40 mg PO QPM 05/31/21 [History Last Taken 05/25/21] metoprolol succinate 12.5 mg PO BID 05/31/21 [History Last Taken 05/31/21] tiotropium bromide [Spiriva with HandiHaler] 18 mcg INHALATION DAILY 05/31/21 [History Last Taken 05/31/21] Allergy/AdvReac Type Severity Reaction Status Date / Time Penicillins Allergy Unknown Verified 05/31/21 13:11 Family History Mother Cancer brain Father Cancer throat Surgical History History of angioplasty of peripheral vessel (07/2019) History of coronary artery stent placement Surgically constructed arteriovenous fistula Social History household members: none housing: apartment Smoking Status: Current every day smoker tobacco type: cigarettes alcohol intake: current Alcohol type: beer details: Notes 2-3 beers, QOD substance use type: does not use ROS Constitutional Constitutional: Reports chills, malaise and weakness; Denies anorexia, fatigue or fever(s) Cardiovascular Cardiovascular: Reports chest pain and edema; Denies palpitations or syncope Respiratory/Chest Respiratory/Chest: Reports change in phlegm color, cough, portable oxygen @ home, shortness of breath at rest, shortness of breath with exertion and wheezing; Denies hemoptysis Gastrointestinal Gastrointestinal: Denies abdominal pain, constipation, diarrhea, nausea or vomiting Genitourinary Genitourinary: Reports anuria; Denies dysuria Musculoskeletal Musculoskeletal: Reports back pain; Denies extremity pain, joint pain or joint stiffness Integumentary Integumentary: Denies dry skin or jaundice Neurologic Neurologic: Denies abnormal gait, abnormal speech, confusion, dizziness or focal weakness Psychiatric Psychiatric: Denies anxiety or depression Endocrine Endocrinology: Denies change in body appearance Hematologic/Lymphatic Hematologic/Lymphatic: Reports anemia; Denies easy bleeding or easy bruising Vital Signs Vital Signs Vital Signs: 05/31/21 13:06 05/31/21 13:21 05/31/21 13:27 Temperature 97.9 F Temperature Source Oral Pulse Rate 76 Respiratory Rate 20 H Respiratory Effort Short of Breath Blood Pressure 136/62 H Blood Pressure Mean 86 Pulse Ox 100 Oxygen Delivery Method Nasal Cannula Nasal Cannula Oxygen Flow Rate (L/min) 5 5 05/31/21 14:05 05/31/21 15:17 Temperature 97.6 F L Temperature Source Temporal Pulse Rate 78 78 Respiratory Rate 17 18 Respiratory Effort Blood Pressure 120/58 L 130/62 H Blood Pressure Mean 78 84 Pulse Ox 100 100 Oxygen Delivery Method Nasal Cannula Nasal Cannula Oxygen Flow Rate (L/min) 4 4 Weight Weight: 186 lb 1.122 oz Body Mass Index (BMI) 27.4 Physical Exam Const alert, oriented x3 and no apparent distress General Appearance: cooperative HEENT normocephalic and head/scalp atraumatic Eyes conjunctivae normal and no scleral icterus Neck supple General: trachea midline Resp normal respiratory effort Effort and Inspection: able to speak in complete sentences and symmetric chest movement Auscultation: rhonchi lower bilaterally and wheezes throughout Cardio regular rate, regular rhythm, S1 normal heart sound, S2 normal heart sound and peripheral pulses 2+ throughout GI normal to inspection, nondistended, normoactive bowel sounds, soft to palpation and non-tender Extremity normal capillary refill General Extremity: edema bilateral lower extremity Details: severe and no tenderness to palpation of joints or extremities Peripheral Pulses: Yes pulses 2+ throughout Skin General Skin Exam: no breakdown, turgor normal and ecchymosis Lesions: no lesions Rashes: no rashes Neuro oriented x3, moves all extremities, no focal motor deficits and no sensory deficits noted Psych thought process normal Attitude: agitated Results Lab / Micro Data Result Diagrams: 05/31/21 13:26 05/31/21 14:00 Labs: Laboratory Results - last 24 hr 05/31/21 13:26: WBC 8.3, RBC 2.99 L, Hgb 9.1 L, Hct 29.5 L, MCV 98.7 H, MCH 30.4, MCHC 30.8 L, RDW Std Deviation 68.4 H, RDW Coeff of Karl 19.3 H, Plt Count 253, MPV 10.3, Immature Gran % (Auto) 0.500, Neut % (Auto) 72.1 H, Lymph % (Auto) 11.5 L, Early % (Auto) 14.1 H, Eos % (Auto) 1.3, Baso % (Auto) 0.5, A bsolute Neuts (auto) 6.0, Absolute Lymphs (auto) 0.96, Nucleated RBC % 0, Anisocytosis 1+ 05/31/21 13:26: PT Cancelled, INR Cancelled 05/31/21 13:26: Sodium Cancelled, Potassium Cancelled, Chloride Cancelled, Carbon Dioxide Cancelled, Anion Gap Cancelled, BUN Cancelled, Creatinine Cancelled, Estim Creat Clear Calc Cancelled, Est GFR (MDRD) Af Amer Cancelled, Est GFR (MDRD) Non-Af Cancelled, BUN/Creatinine Ratio Cancelled, Glucose Cancelled, Calcium Cancelled, Troponin I High Sens Cancelled 05/31/21 13:49: PT Cancelled, INR Cancelled 05/31/21 14:00: Sodium 133 L, Potassium 3.4 L, Chloride 92 L, Carbon Dioxide 30.0, Anion Gap 11, BUN 12, Creatinine 2.50 H, Estim Creat Clear Calc 30.24, Est GFR (MDRD) Af Amer 34 L, Est GFR (MDRD) Non-Af 28 L, BUN/Creatinine Ratio 4.8 L, Glucose 79, Calcium 8.0 L, Troponin I High Sens 20 05/31/21 14:20: PT 13.6, INR 1.1 Micro: Microbiology 05/31/21 13:20 Interface Orders SARS-CoV-2 Antigen (Rapid) - Final Rhythm Strip Rhythm Strip: Sinus Rhythm Rate: 76 Ectopy: PVC(s) Radiology Impression Chest X-Ray 05/31/21 13:35 IMPRESSION: Mild degree of CHF with bibasilar infiltrates worse at the left lung base. Blunting of both costophrenic angles. Electronically Signed: Ronald Johnson MD at 14:14 EST , Service support , Thoracic Spine X-Ray 05/31/21 15:00 IMPRESSION: Loss of height of a lower dorsal vertebrae. Degenerative changes. Electronically Signed: Ronald Johnson MD at 15:19 EST , Service support , Assessment & Plan Assessment/Plan (1) Multifocal pneumonia: (2) Chronic respiratory failure with hypoxia: PLAN: 1. Chest pain -Admit to PCU for cardiac monitoring -Trend cardiac enzymes -Daily weights -Nutrition consulted as patient is noncompliant with diet, refused specialized diet requesting regular diet only. -CBC and BMP ordered daily -Patient states that this is an ongoing chronic issue for him and that pain has resolved at this time 2. Multifocal pneumonia -Continue cefepime and vancomycin -Sputum culture and MRSA PCR ordered -Encourage incentive spirometry -Continue oxygen therapy, patient currently on 5 L which is basis his baseline oxygen usage -Mucinex ordered -Continue with patient's home regimen of tiotropium, fluticasone, p.o. albuterol -PT and OT to eval and treat as patient complains of increased weakness as well 3. Thoracic back pain -Chronic -X-ray demonstrates degenerative changes -As needed Tylenol and OxyIR ordered 4. End-stage renal disease -Patient is a Friday dialysis, received dialysis prior to arrival to ER -Will consult Dr. Perez as patient will likely need dialysis during hospitaliza tion -BMP ordered daily -Daily weights ordered -Continue sevelamer We will continue patient's home medication regimen for chronic diseases including CAD, paroxysmal A. fib, hyperlipidemia, hypertension, anxiety. DVT prophylaxis-subcu heparin This patient was seen by Ansley Quintero NP-C under the supervision of Dr. Caban. Documented by User: Dr. Harpreet Caban MD 05/31/21 17:52 HPI - General General Date of Admission: 05/31/21 Date of Service: 05/31/21 Chief Complaint: Shortness of breath, back and chest pain HPI Narrative This is 64-year-old gentleman with multiple comorbidities as listed below along with low functional capacity was brought to ER by EMS from [facility] for worsening of shortness of breath, leg swelling, back and chest pain. Patient was discharged about 2 months ago and after that he started neck swelling. He has progressive worsening of shortness of breath to the point of minimal exertion even going to bathroom but does not have dyspnea at rest. He intermittently gets back pain and chest pain. He also had PCI with cardiac stent, BMS on February 2021. Patient has history of chronic upper back pain. Chest pain was sharp, 8/10 intensity lasted for about 2 hours constant in nature. Denies dizziness or passing out. Patient has history of COPD, chronic smoker on 5 L of O2 on baseline and chronic alcohol use with recurrent admissions for alcohol use. [facility] Medical History Adrenal adenoma Alcohol addiction Alcoholic cardiomyopathy Anemia due to chronic illness Atherosclerotic heart disease of [place] coronary artery without angina pectoris Atrial fibrillation and flutter Atrial fibrillation with rapid ventricular response (04/2019) Back pain Benign essential HTN Benign hypertension BPH (benign prostatic hyperplasia) Cardiomyopathy in diseases classified elsewhere Chronic obstructive pulmonary disease Chronic renal failure, stage 4 (severe) Chronic serous otitis media of left ear COPD (chronic obstructive pulmonary disease) Current drinker of alcohol Diverticulosis End-stage renal disease on hemodialysis ESRD (end stage renal disease) on dialysis Hiatal hernia HLD (hyperlipidemia) Hyperlipidemia Nicotine dependence Paroxysmal atrial fibrillation Persistent atrial fibrillation PKD (polycystic kidney disease) Problem with dialysis access Home Medications albuterol sulfate 2 mg/5 mL oral syrup 2 mg PO TID 12/15/19 [History Last Taken 05/31/21] sertraline [Zoloft] 100 mg PO DAILY 03/08/21 [History Last Taken 05/31/21] aspirin 81 mg PO DAILY #30 tab 03/11/21 [Rx Last Taken 05/31/21] tamsulosin 0.4 mg PO DAILY #30 cap 03/11/21 [Rx Last Taken 05/31/21] amiodarone 200 mg PO BID #60 tab 03/17/21 [Rx Last Taken 05/31/21] clopidogrel 75 mg PO DAILY #30 tab 03/17/21 [Rx Last Taken 05/31/21] diltiazem HCl 180 mg PO DAILY #30 cap 03/17/21 [Rx Last Taken 05/31/21] sevelamer HCl [Renagel] 800 mg PO TID 03/26/21 [History Last Taken 05/31/21] buspirone 5 mg PO BID 05/31/21 [History Last Taken 05/31/21] fluticasone propion-salmeterol [Wixela Inhub] 1 inh INHALATION BID 05/31/21 [History Last Taken 05/31/21] loratadine 10 mg PO QODAY 05/31/21 [History Last Taken 05/30/21] lovastatin 40 mg PO QPM 05/31/21 [History Last Taken 05/25/21] metoprolol succinate 12.5 mg PO BID 05/31/21 [History Last Taken 05/31/21] tiotropium bromide [Spiriva with HandiHaler] 18 mcg INHALATION DAILY 05/31/21 [History Last Taken 05/31/21] Allergy/AdvReac Type Severity Reaction Status Date / Time Penicillins Allergy Unknown Verified 05/31/21 13:11 Family History Mother Cancer brain Father Cancer throat Surgical History History of angioplasty of peripheral vessel (07/2019) History of coronary artery stent placement Surgically constructed arteriovenous fistula Social History household members: none housing: apartment Smoking Status: Current every day smoker tobacco type: cigarettes alcohol intake: current Alcohol type: beer details: Notes 2-3 beers, QOD substance use type: does not use Physical Exam Narrative General: Alert, Oriented x3, Cooperative HEENT: Atraumatic, PERRLA, EOMI, Normocephalic Oral: No Gingival or Mucosal Lesions/ Ulcerations Neck: Supple, No JVD, Negative Carotid Bruits Lungs: Air entry diminished in bilateral lung bases. Bilateral expiratory rhonchi and wheezing. Mild bilateral effusion Cardiovascular: Sinus rhythm, Normal S1, Normal S2, No murmurs Abdomen: Bowel Sounds Present, Soft, Non Tender, Non-Distended : No renal angle tenderness. No suprapubic tenderness. Extremities: Bilateral leg pitting edema, Capillary Refill Less than 3 Seconds Skin: No rashes, No breakdown Musculoskeletal: ROM restricted. No tenderness of joints. Neurological: Cranial nerves II-XII grossly intact, DTR 2+/4 and Symmetrical, Neuro grossly intact Psych/Mental Status: Normal Affect, Appropriate. Results Lab / Micro Data Result Diagrams: 05/31/21 13:26 05/31/21 14:00 Assessment & Plan Assessment/Plan (1) Multifocal pneumonia: PLAN: This patient was seen in conjunction with CABRERA Panchal. I have independently interviewed and examined the patient and reviewed pertinent history, examination findings, laboratory and plan of management. I have reviewed the note and agree with the documented findings with the few additional points. In brief, patient is being admitted for multiple active medical issues, worsening shortness of breath, chest pain and leg swelling. Chest x-ray shows bilateral effusion with bilateral infiltrates, mild bilateral effusion, and mild degree of CHF. As compared to previous x-ray I do not see much difference but reported as worsening of infiltrate in left lung base. Patient is started on IV cefepime and vancomycin as he was discharged about 2 months ago from pneumonia. Pneumonia work-up ordered. Bronchodilator is scheduled, IV Solu-Medrol, incentive spirometry and Pep. Patient also has CHF exacerbation and he is on hemodialysis for ESRD. Vocational Services Specialist is consulted. Patient is elevated therefore IV diuretic will not help. If pneumonia work-up is negative, need empiric 5 days of antibiotic treatment. Thoracic spine x-ray shows loss of height lower dorsal vertebra with degenerative changes possible osteoporosis. For chest pain, cycle cardiac enzymes. Patient had recent PCI in February 2021. Patient would not be good candidate for stress test as currently having shortness of breath and pneumonia. Rest of comorbidities as mentioned above Living will/advanced directive/end of life care: Patient does not have living will or advanced directive. He states his daughter is power of contract attorney for health. After discussion of benefits/risks procedures involved with full code, DNR CC arrest and DNR CC, the patient opted for full code. Patient does want artificial life support including intubation, tube feed, ventilator and/chest compression, central venous catheter, vasopressor and DC shock if needed Total time spent in [id number] encounter in discussion of advanced directive 16 minutes. I have discussed my assessment with Ansley CUT PLUG PACKER and orders have been reviewed. Clinical Impression(s) from Imaging Studies Chest X-Ray 05/31/21 13:35 IMPRESSION: Mild degree of CHF with bibasilar infiltrates worse at the left lung base. Blunting of both costophrenic angles. Thoracic Spine X-Ray 05/31/21 15:00 IMPRESSION: Loss of height of a lower dorsal vertebrae. Degenerative changes. Charges/Coding Visit Charges Inpatient E&M: 64287 Init Hosp L3 Procedures Hospitalists Procedures: 97672 Advncd Care Plan 30 Min
--- NOTE | 2021-05-31 16:55 | PCM.RX.CS ---
Consult Type of Consult: New start Suspected Infection: Pneumonia Labs: Sodium 133 mmol/L (136-145) L 05/31/21 14:00 Potassium 3.4 mmol/L (3.5-5.1) L 05/31/21 14:00 Chloride 92 mmol/L (98-107) L 05/31/21 14:00 Carbon Dioxide 30.0 mmol/L (21.0-32.0) 05/31/21 14:00 Anion Gap 11 (5-15) 05/31/21 14:00 BUN 12 mg/dL (7-18) 05/31/21 14:00 Creatinine 2.50 mg/dL (0.70-1.30) H 05/31/21 14:00 Est GFR (MDRD) Af Amer 34 mL/min (>60) L 05/31/21 14:00 Est GFR (MDRD) Non-Af 28 mL/min (>60) L 05/31/21 14:00 BUN/Creatinine Ratio 4.8 RATIO (10-20) L 05/31/21 14:00 Glucose 79 mg/dL (74-106) 05/31/21 14:00 Microbiology: Microbiology 05/31/21 13:20 Interface Orders SARS-CoV-2 Antigen (Rapid) - Final Goal Trough: 15-20 mcg/mL Pharmacy Plan for Drug Dosing: NEW START IV VANCOMYCIN Consulting Physician: PRADIP Indication: MULTIFOCAL PNA Goal Trough: 15-20 SrCr: 2.50 MG/DL CrCl: 30.24 ML/MIN Comments: 1250MG (15 MG/KG STANDARD DOSE) GIVEN @ 1604 05/31/21 Vancomcyin Dose: 1250MG Q24H TO START @ 1600 06/01/21 Pending Level: 06/03/21 @ 1530 Pharmacy Service will continue to monitor and adjust dosing as required. Labs to be done on [date and time ordered]: VANCOMYCIN TROUGH @ 1530 06/03/21
[2021-05-31 17:55] LABS: Troponin-I HS 20 pg/mL (3.0-78.0)
[2021-05-31] MEDS: Acetaminophen 325 MG Tablet 650 MG PO (18:02)
[2021-05-31] MEDS: oxyCODONE 5 MG Tablet PO (18:02)
[2021-05-31 18:24] LABS: M R Staph aureus DNA By PCR Negative (Negative); Probe Check PASS; Specimen Processing Control PASS
[2021-05-31 20:54] LABS: Troponin-I HS 20 pg/mL (3.0-78.0)
[2021-05-31] MEDS: Ipratropium/Albuterol Sulfate 3 ML AMPUL.NEB INHALATION (21:02)
[2021-05-31] MEDS: Metoprolol(XL)Succ 25 MG Tablet 12.5 MG PO (21:25)
[2021-05-31] MEDS: Atorvastatin Calcium 10 MG Tablet 5 MG PO (21:25)
[2021-05-31] MEDS: Amiodarone 200 MG Tablet PO (21:26)
[2021-05-31] MEDS: guaiFENesin 1,200 MG Tablet 1200 MG PO (21:26)
[2021-05-31] MEDS: busPIRone 5 MG Tablet PO (21:26)
[2021-05-31] MEDS: SEVELAMER CARBONATE 800 MG TABLET PO (21:26)
[2021-05-31] MEDS: MELATONIN 3 MG TABLET PO (21:27)
[2021-05-31] MEDS: Heparin Injection (Vial) 5,000 UNIT/ML VIAL 5000 UNIT SC (21:30)
[2021-06-01] VITALS (21 sets, daily range): BP systolic 104–144; BP diastolic 56–79; PULSE 76–89; RESP 18–26; TEMP 36.4–36.8; O2SAT 94–100
--- NOTE | 2021-06-01 00:48 | PCS.PANDOC ---
PANDEMIC DOCUMENTATION INITIATED: Date: 02/26/2021 Time: 190
[2021-06-01] MEDS: oxyCODONE 5 MG Tablet PO ×2 (02:37→10:05)
[2021-06-01] MEDS: Docusate Sodium 100 MG Capsule 200 MG PO ×2 (02:47→21:34)
[2021-06-01] MEDS: Ipratropium/Albuterol Sulfate 3 ML AMPUL.NEB INHALATION ×6 (02:50→22:05)
[2021-06-01] MEDS: SEVELAMER CARBONATE 800 MG TABLET PO ×3 (05:37→21:36)
--- NOTE | 2021-06-01 05:53 | NURSING ---
Pt requested for this RN to call sister Dena and give update and have her call pt room phone. Gave sister pt's room phone number at this time.
[2021-06-01 06:45] LABS: Absolute Lymphocyte Count 0.13 X10^3/uL (0.83-4.51); Absolute Neutrophil Count 2.2 X10^3/uL (2.0-7.7); Hematocrit 28.5 % (40-54); Hemoglobin 8.9 g/dL (13.0-16.5); Lymphocyte # 0.13 X10^3/ul (0.83-4.51); Lymphocyte % 5.3 % (19-41); Mean Corp Hgb Conc 31.2 g/dL (32-36); Mean Corpuscular Hgb 30.7 pg (27.0-32.0); Mean Corpuscular Volume 98.3 fL (80-94); Mean Platelet Vol. 10.3 fl (6.2-12.0); Monocyte# 0.07 X10^3/uL; Monocyte% 2.9 % (0-10); NRBC Flagged by Analyzer 0 % (0-5); Neutrophil # 2.23 X10^3/uL (2.7-7.7); Neutrophil % 91.4 % (47-70); POSITIVE DIFFERENTIAL YES; POSITIVE MORPHOLOGY YES; Platelet Count 225 K/mm3 (150-450); RBC Distribution Width CV 19.6 % (11.6-14.6); RBC Distribution Width SD 69.5 fl (35.1-43.9); White Blood Count 2.4 K/mm3 (4.4-11.0)
[2021-06-01 06:51] LABS: Differential Indicated SCAN CRITERIA MET
[2021-06-01 07:08] LABS: Anisocytosis 1+; Differential Comment SCANNED; Macrocytosis 1+; Microcytosis RARE
[2021-06-01 07:11] LABS: Anion Gap 9 (5-15); BUN 28 mg/dL (7-18); BUN/Creat Ratio 7.8 RATIO (10-20); Calcium,Total 8.7 mg/dL (8.5-10.1); Chloride 91 mmol/L (98-107); Creatinine, Serum 3.58 mg/dL (0.70-1.30); EST Glomerular Filtration Rate 18 mL/min (>60); Est Glom Filt Rate - Afr Amer 22 mL/min (>60); Estimated Creatinine Clearance 21.12 ml/min; Glucose 186 mg/dL (74-106); Potassium 4.4 mmol/L (3.5-5.1); Sodium Level 130 mmol/L (136-145)
[2021-06-01] MEDS: Albuterol 2.5 MG/3 ML VIAL.NEB. INHALATION (07:14)
[2021-06-01] MEDS: Tamsulosin HCl 0.4 MG Capsule PO ×3 (09:49→09:58)
[2021-06-01] MEDS: Heparin Injection (Vial) 5,000 UNIT/ML VIAL 5000 UNIT SC ×2 (09:49→21:36)
[2021-06-01] MEDS: Clopidogrel Bisulfate 75 MG Tablet PO (09:58)
[2021-06-01] MEDS: Sertraline 100 MG Tablet PO (09:58)
[2021-06-01] MEDS: Metoprolol(XL)Succ 25 MG Tablet 12.5 MG PO ×2 (09:58→21:36)
[2021-06-01] MEDS: busPIRone 5 MG Tablet PO ×2 (09:58→21:40)
[2021-06-01] MEDS: Aspirin E.C. 81 MG Tablet PO (09:58)
[2021-06-01] MEDS: Thiamine Hydrochloride 100 MG Tablet PO ×2 (09:58→16:38)
[2021-06-01] MEDS: Multivitamins,Ther W-Minerals Tablet 1 TABLET PO (09:58)
[2021-06-01] MEDS: dilTIAZem CD 180 MG Capsule PO (10:03)
[2021-06-01] MEDS: Folic Acid 1 MG Tablet PO (10:03)
[2021-06-01] MEDS: Umeclidinium Bromide Inhaler 1 PUFF INHALATION (10:03)
[2021-06-01] MEDS: Amiodarone 200 MG Tablet PO ×2 (10:03→21:39)
[2021-06-01] MEDS: guaiFENesin 1,200 MG Tablet 1200 MG PO ×2 (10:04→21:36)
--- NOTE | 2021-06-01 11:03 | PCM.CONS.R ---
Assessment & Plan Assessment/Plan (1) ESRD (end stage renal disease) on dialysis: PLAN: due to PCKD. HD Tues, Th, Sat. Last dialysis yesterday full treatment at [facility] (2) Chest pain: PLAN: troponin neg. Dobut stress no ischemia in 2020 (3) Benign essential HTN: PLAN: stable (4) Anemia: (5) CHF (congestive heart failure): PLAN: UF only today as tolerated, hx noncompliance with fluid restriction (6) Tobacco dependence: PLAN: COPD with wheezing, rhonchi, chronic (7) Cardiomyopathy: (8) Debility: HPI Consult Data Date of Consult: 06/01/21 HPI Narrative HPI Narrative: ALEJA RICHARD, is a 65 M with ESRD due to PCKD on HD THS last treatment yesterday at [facility] admitted for chest pain, shortness of breath. He continues to smoke and drink alcohol, noncompliance with fluid restriction. He has been receiving extra dialysis with IUF and extra time on dialysis THS for fluid removal. He continues to complain of cough, shortness of breath but this is chronic for him. Oxygenation stable. On antibiotics for possible pneumonia. Dobutamine stress test in 2019 unremarkable for ischemia. [facility] Medical History Adrenal adenoma Alcohol addiction Alcoholic cardiomyopathy Anemia due to chronic illness Atherosclerotic heart disease of [place] coronary artery without angina pectoris Atrial fibrillation and flutter Atrial fibrillation with rapid ventricular response (04/2019) Back pain Benign essential HTN Benign hypertension BPH (benign prostatic hyperplasia) Cardiomyopathy in diseases classified elsewhere Chronic obstructive pulmonary disease Chronic renal failure, stage 4 (severe) Chronic serous otitis media of left ear COPD (chronic obstructive pulmonary disease) Current drinker of alcohol Diverticulosis End-stage renal disease on hemodialysis ESRD (end stage renal disease) on dialysis Hiatal hernia HLD (hyperlipidemia) Hyperlipidemia Nicotine dependence Paroxysmal atrial fibrillation Persistent atrial fibrillation PKD (polycystic kidney disease) Problem with dialysis access Home Medications albuterol sulfate 2 mg/5 mL oral syrup 2 mg PO TID 12/15/19 [History Last Taken 05/31/21] sertraline [Zoloft] 100 mg PO DAILY 03/08/21 [History Last Taken 05/31/21] aspirin 81 mg PO DAILY #30 tab 03/11/21 [Rx Last Taken 05/31/21] tamsulosin 0.4 mg PO DAILY #30 cap 03/11/21 [Rx Last Taken 05/31/21] amiodarone 200 mg PO BID #60 tab 03/17/21 [Rx Last Taken 05/31/21] clopidogrel 75 mg PO DAILY #30 tab 03/17/21 [Rx Last Taken 05/31/21] diltiazem HCl 180 mg PO DAILY #30 cap 03/17/21 [Rx Last Taken 05/31/21] sevelamer HCl [Renagel] 800 mg PO TID 03/26/21 [History Last Taken 05/31/21] buspirone 5 mg PO BID 05/31/21 [History Last Taken 05/31/21] fluticasone propion-salmeterol [Wixela Inhub] 1 inh INHALATION BID 05/31/21 [History Last Taken 05/31/21] loratadine 10 mg PO QODAY 05/31/21 [History Last Taken 05/30/21] lovastatin 40 mg PO QPM 05/31/21 [History Last Taken 05/25/21] metoprolol succinate 12.5 mg PO BID 05/31/21 [History Last Taken 05/31/21] tiotropium bromide [Spiriva with HandiHaler] 18 mcg INHALATION DAILY 05/31/21 [History Last Taken 05/31/21] Allergy/AdvReac Type Severity Reaction Status Date / Time Penicillins Allergy Unknown Verified 05/31/21 13:11 Family History Mother Cancer brain Father Cancer throat Surgical History History of angioplasty of peripheral vessel (07/2019) History of coronary artery stent placement Surgically constructed arteriovenous fistula Social History household members: none housing: apartment Smoking Status: Current every day smoker tobacco type: cigarettes alcohol intake: current Alcohol type: beer details: Notes 2-3 beers, QOD substance use type: does not use ROS Constitutional Constitutional: Reports weakness; Denies chills or fever(s) Cardiovascular Cardiovascular: Reports chest pain, dyspnea on exertion and edema Respiratory/Chest Respiratory/Chest: Reports shortness of breath at rest Gastrointestinal Gastrointestinal: Denies abdominal pain, diarrhea, nausea or vomiting Musculoskeletal Musculoskeletal: Reports other Details: debilitated Integumentary Integumentary: Reports other Details: ecchymosis Hematologic/Lymphatic Hematologic/Lymphatic: Reports anemia Physical Exam Const alert and oriented x3 Resp Auscultation: rhonchi and wheezes Cardio regular rate GI non-tender and non-distended Palpation: soft Extremity General Extremity: edema Neuro Sensorium / Orientation: awake and alert Psych cooperative Lab / Micro Data Result Diagrams: 06/01/21 06:15 06/01/21 06:15 Labs: Laboratory Results - last 24 hr 05/31/21 13:26: WBC 8.3, RBC 2.99 L, Hgb 9.1 L, Hct 29.5 L, MCV 98.7 H, MCH 30.4, MCHC 30.8 L, RDW Std Deviation 68.4 H, RDW Coeff of Karl 19.3 H, Plt Count 253, MPV 10.3, Immature Gran % (Auto) 0.500, Neut % (Auto) 72.1 H, Lymph % (Auto) 11.5 L, [place] % (Auto) 14.1 H, Eos % (Auto) 1.3, Baso % (Auto) 0.5, Absolute Neuts (auto) 6.0, Absolute Lymphs (auto) 0.96, Nucleated RBC % 0, Anisocytosis 1+ 05/31/21 13:26: PT Cancelled, INR Cancelled 05/31/21 13:26: Sodium Cancelled, Potassium Cancelled, Chloride Cancelled, Carbon Dioxide Cancelled, Anion Gap Cancelled, BUN Cancelled, Creatinine Cancelled, Estim Creat Clear Calc Cancelled, Est GFR (MDRD) Af Amer Cancelled, Est GFR (MDRD) Non-Af Cancelled, BUN/Creatinine Ratio Cancelled, Glucose Cancelled, Calcium Cancelled, Troponin I High Sens Cancelled 05/31/21 13:49: PT Cancelled, INR Cancelled 05/31/21 14:00: Sodium 133 L, Potassium 3.4 L, Chloride 92 L, Carbon Dioxide 30.0, Anion Gap 11, BUN 12, Creatinine 2.50 H, Estim Creat Clear Calc 30.24, Est GFR (MDRD) Af Amer 34 L, Est GFR (MDRD) Non-Af 28 L, BUN/Creatinine Ratio 4.8 L, Glucose 79, Calcium 8.0 L, Troponin I High Sens 20 05/31/21 14:20: PT 13.6, INR 1.1 05/31/21 16:45: MRSA (PCR) Negative 05/31/21 17:10: Troponin I High Sens 20 05/31/21 20:09: Troponin I High Sens 20 06/01/21 06:15: WBC 2.4 L, RBC 2.90 L, Hgb 8.9 L, Hct 28.5 L, MCV 98.3 H, MCH 30.7, MCHC 31.2 L, RDW Std Deviation 69.5 H, RDW Coeff of Karl 19.6 H, Plt Count 225, MPV 10.3, Immature Gran % (Auto) 0.400, Neut % (Auto) 91.4 H, Lymph % (Auto) 5.3 L, [place] % (Auto) 2.9, Eos % (Auto) 0.0, Baso % (Auto) 0.0, Absolute Neuts (auto) 2.2, Absolute Lymphs (auto) 0.13 L, Nucleated RBC % 0, Differential Comment SCANNED, Diff Path Review May foll, Anisocytosis 1+, Microcytosis RARE, Macrocytosis 1+ 06/01/21 06:15: Sodium 130 L, Potassium 4.4, Chloride 91 L, Carbon Dioxide 30.0, Anion Gap 9, BUN 28 H, Creatinine 3.58 H, Estim Creat Clear Calc 21.12, Est GFR (MDRD) Af Amer 22 L, Est GFR (MDRD) Non-Af 18 L, BUN/Creatinine Ratio 7.8 L, Glucose 186 H, Calcium 8.7 Micro: Microbiology 05/31/21 13:20 Interface Orders SARS-CoV-2 Antigen (Rapid) - Final Rhythm Strip Rhythm Strip: Sinus Rhythm Rate: 76 Ectopy: PVC(s) Radiology Impression Chest X-Ray 05/31/21 13:35 IMPRESSION: Mild degree of CHF with bibasilar infiltrates worse at the left lung base. Blunting of both costophrenic angles. Electronically Signed: Ronald Johnson MD at 14:14 EST , Service support , Thoracic Spine X-Ray 05/31/21 15:00 IMPRESSION: Loss of height of a lower dorsal vertebrae. Degenerative changes. Electronically Signed: Ronald Johnson MD at 15:19 EST , Service support ,
--- NOTE | 2021-06-01 11:13 | CASEMGMT ---
Patient is from [facility]. MJ met with patient, introduced self and role at [facility]. SW asked patient if his plans are to return [facility] at discharge. Patient said he will return to [facility] at d/c and he will need transport back. SW faxed updates to [facility]. Plan: d/c back to [facility] when ready. Francie BROTHERS
--- NOTE | 2021-06-01 12:26 | CASEMGMT ---
Patient does not have a Healthcare Living Will or a Healthcare Power of Physician Surgeon. Francie Sexton [employer]ATION[employer]QUIPMENT [employer]CH[employer]IC DENEEN
--- NOTE | 2021-06-01 12:36 | PCM.PN.HOSP ---
Documented by User: Ansley Quintero NP-C 06/01/21 12:47 Subjective Subjective Patient seen and examined. Patient irritable and rude to staff. Nurse at bedside giving morning medications as well as pain medication. Objective Data Objective Data Vital Signs: Vital Signs Temp Pulse Resp BP Pulse Ox 97.8 F 83 18 144/75 H 100 06/01/21 10:00 06/01/21 11:08 06/01/21 11:08 06/01/21 10:00 06/01/21 10:00 Oxygen Flow Rate (L/min) 3 Oxygen Delivery Method Nasal Cannula Weight: 181 lb 7.047 oz Body Mass Index (BMI) 26.5 Intake & Output: Intake and Output for Last 24 Hours 05/30/21 05/31/21 06/01/21 23:59 23:59 23:59 Intake Total 475 / 595 240 / 240 Balance 475 / 595 240 / 240 Lab / Micro Data Result Diagrams: 06/01/21 06:15 06/01/21 06:15 Labs: Laboratory Results - last 24 hr 05/31/21 13:26: WBC 8.3, RBC 2.99 L, Hgb 9.1 L, Hct 29.5 L, MCV 98.7 H, MCH 30.4, MCHC 30.8 L, RDW Std Deviation 68.4 H, RDW Coeff of Karl 19.3 H, Plt Count 253, MPV 10.3, Immature Gran % (Auto) 0.500, Neut % (Auto) 72.1 H, Lymph % (Auto) 11.5 L, [place] % (Auto) 14.1 H, Eos % (Auto) 1.3, Baso % (Auto) 0.5, Absolute Neuts (auto) 6.0, Absolute Lymphs (auto) 0.96, Nucleated RBC % 0, Anisocytosis 1+ 05/31/21 13:26: PT Cancelled, INR Cancelled 05/31/21 13:26: Sodium Cancelled, Potassium Cancelled, Chloride Cancelled, Carbon Dioxide Cancelled, Anion Gap Cancelled, BUN Cancelled, Creatinine Cancelled, Estim Creat Clear Calc Cancelled, Est GFR (MDRD) Af Amer Cancelled, Est GFR (MDRD) Non-Af Cancelled, BUN/Creatinine Ratio Cancelled, Glucose Cancelled, Calcium Cancelled, Troponin I High Sens Cancelled 05/31/21 13:49: PT Cancelled, INR Cancelled 05/31/21 14:00: Sodium 133 L, Potassium 3.4 L, Chloride 92 L, Carbon Dioxide 30.0, Anion Gap 11, BUN 12, Creatinine 2.50 H, Estim Creat Clear Calc 30.24, Est GFR (MDRD) Af Amer 34 L, Est GFR (MDRD) Non-Af 28 L, BUN/Creatinine Ratio 4.8 L, Glucose 79, Calcium 8.0 L, Troponin I High Sens 20 05/31/21 14:20: PT 13.6, INR 1.1 05/31/21 16:45: MRSA (PCR) Negative 05/31/21 17:10: Troponin I High Sens 20 05/31/21 20:09: Troponin I High Sens 20 06/01/21 06:15: WBC 2.4 L, RBC 2.90 L, Hgb 8.9 L, Hct 28.5 L, MCV 98.3 H, MCH 30.7, MCHC 31.2 L, RDW Std Deviation 69.5 H, RDW Coeff of Karl 19.6 H, Plt Count 225, MPV 10.3, Immature Gran % (Auto) 0.400, Neut % (Auto) 91.4 H, Lymph % (Auto) 5.3 L, [place] % (Auto) 2.9, Eos % (Auto) 0.0, Baso % (Auto) 0.0, Absolute Neuts (auto) 2.2, Absolute Lymphs (auto) 0.13 L, Nucleated RBC % 0, Differential Comment SCANNED, Diff Path Review November foll, Anisocytosis 1+, Microcytosis RARE, Macrocytosis 1+ 06/01/21 06:15: Sodium 130 L, Potassium 4.4, Chloride 91 L, Carbon Dioxide 30.0, Anion Gap 9, BUN 28 H, Creatinine 3.58 H, Estim Creat Clear Calc 21.12, Est GFR (MDRD) Af Amer 22 L, Est GFR (MDRD) Non-Af 18 L, BUN/Creatinine Ratio 7.8 L, Glucose 186 H, Calcium 8.7 Micro: Microbiology 05/31/21 13:20 Interface Orders SARS-CoV-2 Antigen (Rapid) - Final Radiography Diagnostic Testing: Radiology Impression Chest X-Ray 05/31/21 13:35 IMPRESSION: Mild degree of CHF with bibasilar infiltrates worse at the left lung base. Blunting of both costophrenic angles. Electronically Signed: Ronald Johnson MD at 14:14 EST , Service support , Thoracic Spine X-Ray 05/31/21 15:00 IMPRESSION: Loss of height of a lower dorsal vertebrae. Degenerative changes. Electronically Signed: Ronald Johnson MD at 15:19 EST , Service support , Rhythm Strip Rhythm Strip: Sinus Rhythm Rate: 76 Ectopy: PVC(s) Physical Exam Const alert, oriented x3 and no apparent distress General Appearance: cooperative HEENT normocephalic and head/scalp atraumatic Eyes conjunctivae normal and no scleral icterus Neck supple General: trachea midline Resp normal respiratory effort Effort and Inspection: able to speak in complete sentences and symmetric chest movement Auscultation: rhonchi lower bilaterally and wheezes throughout Cardio regular rate, regular rhythm, S1 normal heart sound, S2 normal heart sound and peripheral pulses 2+ throughout GI normal to inspection, nondistended, normoactive bowel sounds, soft to palpation and non-tender Extremity normal capillary refill General Extremity: edema bilateral lower extremity Details: severe and no tenderness to palpation of joints or extremities Skin General Skin Exam: no breakdown, turgor normal and ecchymosis Lesions: no lesions Rashes: no rashes Neuro oriented x3, moves all extremities, no focal motor deficits and no sensory deficits noted Psych thought process normal Attitude: agitated and other Assessment & Plan Assessment/Plan (1) CHF (congestive heart failure): QUALIFIERS: Heart failure chronicity: chronic Heart failure type: unspecified Qualified Code(s): I50.9 - Heart failure, unspecified (2) Multifocal pneumonia: (3) ESRD (end stage renal disease) on dialysis: PLAN: 1. Chest pain -Resolved -Cardiac enzymes negative -Continue Daily weights -Nutrition consulted as patient is noncompliant with diet, refused specialized diet requesting regular diet only. -CBC and BMP ordered daily 2. Multifocal pneumonia -Continue cefepime and vancomycin -Sputum culture ordered, MRSA negative -Encourage incentive spirometry -Continue oxygen therapy, patient currently on 3 L nasal cannula oxygen. Her oxygen company patient is supposed to be on 2 L nasal cannula oxygen continuous -Mucinex ordered -Continue with patient's home regimen of tiotropium, fluticasone, p.o. albuterol -PT and OT following 3. Thoracic back pain -Chronic -X-ray demonstrates degenerative changes -As needed Tylenol and OxyIR ordered 4. End-stage renal disease -Patient is a Friday dialysis, received dialysis prior to arrival to ER -Dr. Perez following -BMP ordered daily -Daily weights ordered -Continue sevelamer We will continue patient's home medication regimen for chronic diseases including CAD, paroxysmal A. fib, hyperlipidemia, hypertension, anxiety. DVT prophylaxis-subcu heparin This patient was seen by LINDA Ballard under the supervision of Dr. Gonzalez. Documented by User: Dr. Ilda Gonzalez MD 06/01/21 18:22 Objective Data Lab / Micro Data Result Diagrams: 06/01/21 06:15 06/01/21 06:15 Charges/Coding Addendum Addendum: Patient seen by Eliezer MCKEON under my supervision Patient seen and examined. He had no acute complaints today. He was on his baseline oxygen. Review of systems otherwise negative. He is still wheezing. He has remained hemodynamically stable. O/E: Const alert, oriented x3 and no apparent distress General Appearance: cooperative HEENT normocephalic and head/scalp atraumatic Eyes conjunctivae normal and no scleral icterus Neck supple General: trachea midline Resp normal respiratory effort Effort and Inspection: able to speak in complete sentences and symmetric chest movement Auscultation: rhonchi lower bilaterally and wheezes throughout Cardio regular rate, regular rhythm, S1 normal heart sound, S2 normal heart sound and peripheral pulses 2+ throughout GI normal to inspection, nondistended, normoactive bowel sounds, soft to palpation and non-tender Extremity normal capillary refill General Extremity: edema bilateral lower extremity Details: severe and no tenderness to palpation of joints or extremities Skin General Skin Exam: no breakdown, turgor normal and ecchymosis Lesions: no lesions Rashes: no rashes Neuro oriented x3, moves all extremities, no focal motor deficits and no sensory deficits noted Psych thought process normal Attitude: normal affect Plan is to continue cefepime and vancomycin. Sputum culture pending. Titrate oxygen to maintain saturation above 90%. Continue breathing treatments of bronchodilators. Encourage incentive spirometry. He also complained of some chest pain but troponins x3 are negative. Chest pain seems to be worsened with coughing. Nephrology consulted for dialysis. Rest as per Eliezer Quintero MANAGER ENVIRONMENTAL AFFAIRS-C's note, which I have reviewed and endorsed. Visit Charges Inpatient E&M: 79308 Subs Hosp L3
--- NOTE | 2021-06-01 13:41 | PCM.RX.CS ---
Consult Pharmacy has been consulted to manage selected antiobiotic: Vancomycin Type of Consult: Follow-up Suspected Infection: Pneumonia Prior Doses of Antibiotics Received/Current Regimen: received vanc 1250mg IV x1 yesterday at 16:04 Labs: Sodium 130 mmol/L (136-145) L 06/01/21 06:15 Potassium 4.4 mmol/L (3.5-5.1) 06/01/21 06:15 Chloride 91 mmol/L (98-107) L 06/01/21 06:15 Carbon Dioxide 30.0 mmol/L (21.0-32.0) 06/01/21 06:15 Anion Gap 9 (5-15) 06/01/21 06:15 BUN 28 mg/dL (7-18) H 06/01/21 06:15 Creatinine 3.58 mg/dL (0.70-1.30) H 06/01/21 06:15 Est GFR (MDRD) Af Amer 22 mL/min (>60) L 06/01/21 06:15 Est GFR (MDRD) Non-Af 18 mL/min (>60) L 06/01/21 06:15 BUN/Creatinine Ratio 7.8 RATIO (10-20) L 06/01/21 06:15 Glucose 186 mg/dL (74-106) H 06/01/21 06:15 Microbiology: Microbiology 05/31/21 13:20 Interface Orders SARS-CoV-2 Antigen (Rapid) - Final Weight used for dosin.3 kg Goal Trough: 15-20 mcg/mL Pharmacy Plan for Drug Dosing: The patient is a dialysis patient so the previous vancomycin dose and lab have been discontinued. Per [facility] protocol for dosing in dialysis patients, will order a 2nd dose (500mg based on the patient's weight) to be given tonight after dialysis is done (patient is getting an extra session today). Noting that the patient is on a //FRI dialysis schedule, will order a random vanc level to be drawn tomorrow morning pre-dialysis. That level will be used to determine if another dose will be needed after dialysis tomorrow. Pharmacy Service will continue to monitor and adjust dosing as required. Follow-Up Labs: Trough Vancomycin - random Labs to be done on [date and time ordered]: 06/02/21 0600 pre-HD
[2021-06-01 14:28] LABS: Pathologist Review Reviewed
[2021-06-01] MEDS: 0.9% Saline Lock 10 ML Syringe IV (16:35)
[2021-06-01] MEDS: Vancomycin IV 500 MG/100 ML BAG 100 MG IV (17:40)
--- NOTE | 2021-06-01 19:42 | DIALYSIS ---
IUF tx completed for -3600ml. Pt tolerated tx well. See flow record for tx data.
[2021-06-01] MEDS: Atorvastatin Calcium 10 MG Tablet 5 MG PO (21:36)
[2021-06-02] VITALS (24 sets, daily range): BP systolic 120–143; BP diastolic 61–75; PULSE 73–86; RESP 16–28; TEMP 36.6–36.9; O2SAT 93–100
[2021-06-02] MEDS: Ipratropium/Albuterol Sulfate 3 ML AMPUL.NEB INHALATION ×5 (01:03→19:24)
[2021-06-02] MEDS: oxyCODONE 5 MG Tablet PO ×2 (05:33→22:10)
[2021-06-02] MEDS: SEVELAMER CARBONATE 800 MG TABLET PO ×3 (05:33→22:13)
[2021-06-02 06:38] LABS: Absolute Lymphocyte Count 0.44 X10^3/uL (0.83-4.51); Absolute Neutrophil Count 4.2 X10^3/uL (2.0-7.7); Hematocrit 28.2 % (40-54); Lymphocyte # 0.44 X10^3/ul (0.83-4.51); Lymphocyte % 8.6 % (19-41); Mean Corp Hgb Conc 31.9 g/dL (32-36); Mean Corpuscular Hgb 31.4 pg (27.0-32.0); Mean Corpuscular Volume 98.3 fL (80-94); Mean Platelet Vol. 10.2 fl (6.2-12.0); Monocyte% 9.7 % (0-10); NRBC Flagged by Analyzer 0 % (0-5); Neutrophil # 4.16 X10^3/uL (2.7-7.7); Neutrophil % 81.1 % (47-70); POSITIVE DIFFERENTIAL YES; POSITIVE MORPHOLOGY YES; Platelet Count 204 K/mm3 (150-450); RBC Distribution Width CV 19.9 % (11.6-14.6); RBC Distribution Width SD 70.3 fl (35.1-43.9); Red Blood Count 2.87 M/mm3 (4.6-6.2); White Blood Count 5.1 K/mm3 (4.4-11.0)
[2021-06-02 06:40] LABS: Differential Indicated SCAN CRITERIA MET
[2021-06-02 06:55] LABS: Anisocytosis 3+
[2021-06-02 07:06] LABS: Anion Gap 10 (5-15); BUN 48 mg/dL (7-18); BUN/Creat Ratio 9.8 RATIO (10-20); Calcium,Total 9.1 mg/dL (8.5-10.1); Chloride 90 mmol/L (98-107); Creatinine, Serum 4.92 mg/dL (0.70-1.30); EST Glomerular Filtration Rate 13 mL/min (>60); Est Glom Filt Rate - Afr Amer 15 mL/min (>60); Estimated Creatinine Clearance 15.37 ml/min; Glucose 135 mg/dL (74-106); Potassium 4.9 mmol/L (3.5-5.1); Sodium Level 129 mmol/L (136-145); Vancomycin, Random Level 22.5 ug/mL (0.0-15.0)
[2021-06-02] MEDS: Albuterol 2.5 MG/3 ML VIAL.NEB. INHALATION ×2 (08:13→16:32)
--- NOTE | 2021-06-02 08:19 | PCM.RX.CS ---
Consult Pharmacy has been consulted to manage selected antiobiotic: Vancomycin Type of Consult: Follow-up Suspected Infection: Pneumonia Prior Doses of Antibiotics Received/Current Regimen: Received 500mg iv x 1 per protocol after dialysis yesterday 06.01.21. Labs: Sodium 129 mmol/L (136-145) L 06/02/21 06:08 Potassium 4.9 mmol/L (3.5-5.1) 06/02/21 06:08 Chloride 90 mmol/L (98-107) L 06/02/21 06:08 Carbon Dioxide 29.0 mmol/L (21.0-32.0) 06/02/21 06:08 Anion Gap 10 (5-15) 06/02/21 06:08 BUN 48 mg/dL (7-18) H 06/02/21 06:08 Creatinine 4.92 mg/dL (0.70-1.30) H 06/02/21 06:08 Est GFR (MDRD) Af Amer 15 mL/min (>60) L 06/02/21 06:08 Est GFR (MDRD) Non-Af 13 mL/min (>60) L 06/02/21 06:08 BUN/Creatinine Ratio 9.8 RATIO (10-20) L 06/02/21 06:08 Glucose 135 mg/dL (74-106) H 06/02/21 06:08 Random Vancomycin 22.5 ug/mL (0.0-15.0) H 06/02/21 06:08 Microbiology: Microbiology 05/31/21 13:20 Interface Orders SARS-CoV-2 Antigen (Rapid) - Final Weight used for dosin kg Estimated Creatinine Clearance: 15 ml/min Goal Trough: 15-20 mcg/mL Pharmacy Plan for Drug Dosing: Random level today 22.5. No further dosing will be given at this time per protocol. Random level ordered for before dialysis on 06.05.21. Pharmacy Service will continue to monitor and adjust dosing as required. Follow-Up Labs: Trough Vancomycin - 06.05.21 random pre dialysis
[2021-06-02] MEDS: Sertraline 100 MG Tablet PO (08:39)
[2021-06-02] MEDS: Metoprolol(XL)Succ 25 MG Tablet 12.5 MG PO ×2 (08:39→22:11)
[2021-06-02] MEDS: Clopidogrel Bisulfate 75 MG Tablet PO (08:39)
[2021-06-02] MEDS: Aspirin E.C. 81 MG Tablet PO (08:40)
[2021-06-02] MEDS: Loratadine 10 MG Tablet PO (08:40)
[2021-06-02] MEDS: Amiodarone 200 MG Tablet PO ×2 (08:40→22:13)
[2021-06-02] MEDS: Thiamine Hydrochloride 100 MG Tablet PO ×2 (08:41→16:23)
[2021-06-02] MEDS: Folic Acid 1 MG Tablet PO (08:41)
[2021-06-02] MEDS: Multivitamins,Ther W-Minerals Tablet 1 TABLET PO (08:41)
[2021-06-02] MEDS: busPIRone 5 MG Tablet PO ×2 (08:41→22:13)
[2021-06-02] MEDS: guaiFENesin 1,200 MG Tablet 1200 MG PO ×2 (08:41→22:08)
[2021-06-02] MEDS: dilTIAZem CD 180 MG Capsule PO (08:42)
[2021-06-02] MEDS: Umeclidinium Bromide Inhaler 1 PUFF INHALATION (08:43)
--- NOTE | 2021-06-02 10:26 | PCM.PN.HOSP ---
Documented by User: Ansley Quintero NP-Malryn 06/02/21 10:29 Subjective Subjective Patient seen and examined. Patient currently getting dialysis. Patient denies needs at this time Objective Data Objective Data Vital Signs: Vital Signs Temp Pulse Resp BP Pulse Ox 98.0 F 81 18 130/66 H 99 06/02/21 08:29 06/02/21 08:39 06/02/21 08:29 06/02/21 08:39 06/02/21 08:29 Oxygen Flow Rate (L/min) 3 Oxygen Delivery Method Nasal Cannula Weight: 185 lb 13.595 oz Body Mass Index (BMI) 26.5 Intake & Output: Intake and Output for Last 24 Hours 05/31/21 06/01/21 06/02/21 23:59 23:59 23:59 Intake Total 475 / 595 1475 / 1475 240 / 240 Output Total 7200 / 7200 Balance 475 / 595 -5725 / -5725 240 / 240 Lab / Micro Data Result Diagrams: 06/02/21 06:08 06/02/21 06:08 Labs: Laboratory Results - last 24 hr 06/01/21 06:15: Diff Path Review Reviewed 06/02/21 06:08: WBC 5.1, RBC 2.87 L, Hgb 9.0 L, Hct 28.2 L, MCV 98.3 H, MCH 31.4, MCHC 31.9 L, RDW Std Deviation 70.3 H, RDW Coeff of Karl 19.9 H, Plt Count 204, MPV 10.2, Immature Gran % (Auto) 0.600, Neut % (Auto) 81.1 H, Lymph % (Auto) 8.6 L, [place] % (Auto) 9.7, Eos % (Auto) 0.0, Baso % (Auto) 0.0, Absolute Neuts (auto) 4.2, Absolute Lymphs (auto) 0.44 L, Nucleated RBC % 0, Anisocytosis 3+ 06/02/21 06:08: Sodium 129 L, Potassium 4.9, Chloride 90 L, Carbon Dioxide 29.0, Anion Gap 10, BUN 48 H, Creatinine 4.92 H, Estim Creat Clear Calc 15.37, Est GFR (MDRD) Af Amer 15 L, Est GFR (MDRD) Non-Af 13 L, BUN/Creatinine Ratio 9.8 L, Glucose 135 H, Calcium 9.1 06/02/21 06:08: Random Vancomycin 22.5 H Micro: Microbiology 05/31/21 13:20 Interface Orders SARS-CoV-2 Antigen (Rapid) - Final Rhythm Strip Rhythm Strip: Sinus Rhythm Rate: 76 Ectopy: PVC(s) Physical Exam Const alert, oriented x3 and no apparent distress General Appearance: cooperative HEENT normocephalic and head/scalp atraumatic Eyes conjunctivae normal and no scleral icterus Neck supple General: trachea midline Resp normal respiratory effort Effort and Inspection: able to speak in complete sentences and symmetric chest movement Auscultation: rhonchi lower bilaterally and wheezes throughout Cardio regular rate, regular rhythm, S1 normal heart sound, S2 normal heart sound and peripheral pulses 2+ throughout GI normal to inspection, nondistended, normoactive bowel sounds, soft to palpation and non-tender Extremity normal capillary refill General Extremity: edema bilateral lower extremity Details: severe and no tenderness to palpation of joints or extremities Skin General Skin Exam: no breakdown, turgor normal and ecchymosis Lesions: no lesions Rashes: no rashes Neuro oriented x3, moves all extremities, no focal motor deficits and no sensory deficits noted Psych thought process normal Attitude: agitated and other Assessment & Plan Assessment/Plan (1) CHF (congestive heart failure): QUALIFIERS: Heart failure chronicity: chronic Heart failure type: unspecified Qualified Code(s): I50.9 - Heart failure, unspecified (2) Multifocal pneumonia: (3) ESRD (end stage renal disease) on dialysis: PLAN: 1. Chest pain -Resolved 2. Multifocal pneumonia -Continue cefepime and vancomycin -Sputum culture ordered, MRSA negative -Encourage incentive spirometry -Continue oxygen therapy, patient currently on 3 L nasal cannula oxygen. Her oxygen company patient is supposed to be on 2 L nasal cannula oxygen continuous -Mucinex ordered -Continue with patient's home regimen of tiotropium, fluticasone, p.o. albuterol -PT and OT following 3. Thoracic back pain -Chronic -X-ray demonstrates degenerative changes -As needed Tylenol and OxyIR ordered 4. End-stage renal disease -Patient receiving dialysis today -Dr. Perez following -BMP ordered daily -Daily weights ordered -Continue sevelamer Will continue patient's home medication regimen for chronic diseases including CAD, paroxysmal A. fib, hyperlipidemia, hypertension, anxiety. DVT prophylaxis-subcu heparin This patient was seen by LINDA Ballard under the supervision of Dr. Gonzalez. Documented by User: Dr. Ilda Gonzalez MD 06/02/21 16:43 Objective Data Lab / Micro Data Result Diagrams: 06/02/21 06:08 06/02/21 06:08 Charges/Coding Addendum Addendum: Patient seen by LINDA Kirkpatrick under my supervision. Patient seen and examined today. He was requesting for more pain medication. His shortness of breath has remained the same. He has no other complaints. He is due for dialysis today. Review of systems otherwise negative. O/E: Const alert, oriented x3 and no apparent distress General Appearance: cooperative HEENT normocephalic and head/scalp atraumatic Eyes conjunctivae normal and no scleral icterus Neck supple General: trachea midline Resp normal respiratory effort Effort and Inspection: Auscultation: still rhonchi lower bilaterally and wheezes throughout Cardio regular rate, regular rhythm, S1 normal heart sound, S2 normal heart sound and peripheral pulses 2+ throughout GI normal to inspection, nondistended, normoactive bowel sounds, soft to palpation and non-tender Extremity normal capillary refill General Extremity: edema bilateral lower extremity Details: severe and no tenderness to palpation of joints or extremities Skin General Skin Exam: no breakdown, turgor normal and ecchymosis, LUE has AV fistula with good thrill Lesions: no lesions Rashes: no rashes Neuro oriented x3, moves all extremities, no focal motor deficits and no sensory deficits noted Psych thought process normal Affect:normal affect Plan is continue IV antibiotics. Patient told that his pain medication will be kept at the same dose and will not be increased. For dialysis today. Titrate oxygen to saturation above 90%. Breathing treatments of bronchodilators. Cultures pending. Continue Lovenox for DVT prophylaxis. Rest as per Ansley MCKEON's note, which I have reviewed and endorsed. Visit Charges Inpatient E&M: 22542 Subs Hosp L2
[2021-06-02 11:59] LABS: Phosphorus 4.7 mg/dL (2.5-4.9)
--- NOTE | 2021-06-02 12:12 | PN.RENAL_ITS ---
Subjective Subjective Seen on dialysis tolerating 3 L fluid removal. Chronic cough and wheeze due to history of tobacco use. 3.6 L fluid removed with UF yesterday. Edema improved. Shortness of breath improved. Objective Data Objective Data Vital Signs: Vital Signs Temp Pulse Resp BP Pulse Ox 98.0 F 86 24 H 130/66 H 96 06/02/21 08:29 06/02/21 11:05 06/02/21 11:05 06/02/21 08:39 06/02/21 11:05 Oxygen Flow Rate (L/min) 3 Oxygen Delivery Method Nasal Cannula Weight: 84.3 kg Body Mass Index (BMI) 26.5 Intake & Output: Intake and Output for Last 24 Hours 05/31/21 06/01/21 06/02/21 23:59 23:59 23:59 Intake Total 475 / 595 1475 / 1475 240 / 240 Output Total 7200 / 7200 Balance 475 / 595 -5725 / -5725 240 / 240 Lab / Micro Data Result Diagrams: 06/02/21 06:08 06/02/21 06:08 Labs: Laboratory Results - last 24 hr 06/01/21 06:15: Diff Path Review Reviewed 06/02/21 06:08: WBC 5.1, RBC 2.87 L, Hgb 9.0 L, Hct 28.2 L, MCV 98.3 H, MCH 31.4, MCHC 31.9 L, RDW Std Deviation 70.3 H, RDW Coeff of Karl 19.9 H, Plt Count 204, MPV 10.2, Immature Gran % (Auto) 0.600, Neut % (Auto) 81.1 H, Lymph % (A uto) 8.6 L, [place] % (Auto) 9.7, Eos % (Auto) 0.0, Baso % (Auto) 0.0, Absolute Neuts (auto) 4.2, Absolute Lymphs (auto) 0.44 L, Nucleated RBC % 0, Anisocytosis 3+ 06/02/21 06:08: Sodium 129 L, Potassium 4.9, Chloride 90 L, Carbon Dioxide 29.0, Anion Gap 10, BUN 48 H, Creatinine 4.92 H, Estim Creat Clear Calc 15.37, Est GFR (MDRD) Af Amer 15 L, Est GFR (MDRD) Non-Af 13 L, BUN/Creatinine Ratio 9.8 L, Glucose 135 H, Calcium 9.1 06/02/21 06:08: Random Vancomycin 22.5 H 06/02/21 06:08: Phosphorus 4.7 Micro: Microbiology 05/31/21 13:20 Interface Orders SARS-CoV-2 Antigen (Rapid) - Final Rhythm Strip Rhythm Strip: Sinus Rhythm Rate: 76 Ectopy: PVC(s) Physical Exam Const alert and oriented x3 Resp Auscultation: rhonchi and wheezes Cardio regular rate Extremity no clubbing, cyanosis or edema Assessment & Plan Assessment/Plan (1) ESRD (end stage renal disease) on dialysis: PLAN: due to PCKD. Dialysis today with 3 L fluid removal. UF only yesterday at 3.6 L. Edema improved. He will need to follow fluid restriction which he has not followed requiring additional dialysis for fluid removal. (2) Chest pain: PLAN: troponin neg. Dobut stress no ischemia in 2019 (3) Benign essential HTN: PLAN: stable (4) Anemia: PLAN: Hemoglobin stable (5) CHF (congestive heart failure): QUALIFIERS: Heart failure type: unspecified Heart failure chronicity: chronic Qualified Code(s): I50.9 - Heart failure, unspecified PLAN: UF only today as tolerated, hx noncompliance with fluid restriction (6) Tobacco dependence: PLAN: COPD with wheezing, rhonchi, chronic (7) Cardiomyopathy: (8) Debility:
--- NOTE | 2021-06-02 13:51 | DIALYSIS ---
Hemodialysis x3h15m completed at 1315 on a 2K bath, tolerated well, UF 4000mL, accessed via LOBITO AVF using 15G needles, worked well, needles pulled post tx and stasis achieved without issue, next treatment planned for Friday due to the holiday schedule (Friday, Friday, Friday this week)
[2021-06-02] MEDS: 0.9% Saline Lock 10 ML Syringe IV (17:25)
[2021-06-02] MEDS: Heparin Injection (Vial) 5,000 UNIT/ML VIAL 5000 UNIT SC (22:08)
[2021-06-02] MEDS: Docusate Sodium 100 MG Capsule 200 MG PO (22:10)
[2021-06-02] MEDS: Atorvastatin Calcium 10 MG Tablet 5 MG PO (22:13)
[2021-06-03] VITALS (18 sets, daily range): BP systolic 133–153; BP diastolic 61–78; PULSE 77–89; RESP 18–24; TEMP 36.4–36.8; O2SAT 94–100
[2021-06-03] MEDS: MELATONIN 3 MG TABLET PO (01:52)
[2021-06-03] MEDS: Ipratropium/Albuterol Sulfate 3 ML AMPUL.NEB INHALATION ×5 (03:26→18:41)
[2021-06-03] MEDS: SEVELAMER CARBONATE 800 MG TABLET PO ×3 (05:55→21:29)
[2021-06-03 06:53] LABS: Absolute Lymphocyte Count 0.45 X10^3/uL (0.83-4.51); Absolute Neutrophil Count 5.4 X10^3/uL (2.0-7.7); Hematocrit 31.3 % (40-54); Hemoglobin 9.7 g/dL (13.0-16.5); Lymphocyte # 0.45 X10^3/ul (0.83-4.51); Lymphocyte % 6.9 % (19-41); Mean Corpuscular Hgb 31.1 pg (27.0-32.0); Mean Corpuscular Volume 100.3 fL (80-94); Mean Platelet Vol. 9.7 fl (6.2-12.0); Monocyte% 9.2 % (0-10); NRBC Flagged by Analyzer 0.3 % (0-5); Neutrophil # 5.41 X10^3/uL (2.7-7.7); POSITIVE DIFFERENTIAL YES; POSITIVE MORPHOLOGY YES; Platelet Count 222 K/mm3 (150-450); RBC Distribution Width CV 20.5 % (11.6-14.6); RBC Distribution Width SD 72.6 fl (35.1-43.9); Red Blood Count 3.12 M/mm3 (4.6-6.2); White Blood Count 6.5 K/mm3 (4.4-11.0)
[2021-06-03 06:56] LABS: Differential Indicated SCAN CRITERIA MET
[2021-06-03 07:13] LABS: Anion Gap 11 (5-15); BUN 45 mg/dL (7-18); Calcium,Total 8.8 mg/dL (8.5-10.1); Chloride 94 mmol/L (98-107); Creatinine, Serum 3.75 mg/dL (0.70-1.30); EST Glomerular Filtration Rate 17 mL/min (>60); Est Glom Filt Rate - Afr Amer 21 mL/min (>60); Estimated Creatinine Clearance 20.16 ml/min; Glucose 130 mg/dL (74-106); Sodium Level 132 mmol/L (136-145)
[2021-06-03 07:27] LABS: Anisocytosis 3+; Bite Cell RARE; Polychromasia RARE
[2021-06-03] MEDS: busPIRone 5 MG Tablet PO ×2 (08:16→21:25)
[2021-06-03] MEDS: guaiFENesin 1,200 MG Tablet 1200 MG PO ×2 (08:16→21:28)
[2021-06-03] MEDS: dilTIAZem CD 180 MG Capsule PO (08:16)
[2021-06-03] MEDS: Heparin Injection (Vial) 5,000 UNIT/ML VIAL 5000 UNIT SC ×2 (08:16→21:55)
[2021-06-03] MEDS: Thiamine Hydrochloride 100 MG Tablet PO ×2 (08:17→18:33)
[2021-06-03] MEDS: Amiodarone 200 MG Tablet PO ×2 (08:17→21:26)
[2021-06-03] MEDS: Clopidogrel Bisulfate 75 MG Tablet PO (08:17)
[2021-06-03] MEDS: Loratadine 10 MG Tablet PO (08:17)
[2021-06-03] MEDS: Multivitamins,Ther W-Minerals Tablet 1 TABLET PO (08:17)
[2021-06-03] MEDS: Aspirin E.C. 81 MG Tablet PO (08:18)
[2021-06-03] MEDS: Sertraline 100 MG Tablet PO (08:18)
[2021-06-03] MEDS: Metoprolol(XL)Succ 25 MG Tablet 12.5 MG PO ×2 (08:18→21:29)
[2021-06-03] MEDS: Folic Acid 1 MG Tablet PO (08:18)
[2021-06-03] MEDS: Umeclidinium Bromide Inhaler 1 PUFF INHALATION (08:19)
[2021-06-03] MEDS: oxyCODONE 5 MG Tablet PO ×2 (10:03→16:40)
--- NOTE | 2021-06-03 10:08 | PN.HOSP_ITS ---
Documented by User: Ansley Quintero NP-C 06/03/21 10:10 Subjective Subjective Patient seen and examined. Patient states that he is feeling improved today. Patient states that he has feeling much less swollen and puffy. Objective Data Objective Data Vital Signs: Vital Signs Temp Pulse Resp BP Pulse Ox 98.3 F 82 18 136/64 H 97 06/03/21 08:13 06/03/21 08:18 06/03/21 08:13 06/03/21 08:18 06/03/21 08:13 Oxygen Flow Rate (L/min) 3 Oxygen Delivery Method Nasal Cannula Weight: 182 lb 8.684 oz Body Mass Index (BMI) 26.5 Intake & Output: Intake and Output for Last 24 Hours 06/01/21 06/02/21 06/03/21 23:59 23:59 23:59 Intake Total 1475 / 1475 915 / 915 140 / 140 Output Total 7200 / 7200 4000 / 4000 Balance -5725 / -5725 -3085 / -3085 140 / 140 Lab / Micro Data Result Diagrams: 06/03/21 06:40 06/03/21 06:40 Labs: Laboratory Results - last 24 hr 06/02/21 06:08: Phosphorus 4.7 06/03/21 06:40: WBC 6.5, RBC 3.12 L, Hgb 9.7 L, Hct 31.3 L, MCV 100.3 H, MCH 31.1, MCHC 31.0 L, RDW Std Deviation 72.6 H, RDW Coeff of Karl 20.5 H, Plt Count 222, MPV 9.7, Immature Gran % (Auto) 0.900, Neut % (Auto) 83.0 H, Lymph % (Auto) 6.9 L, [place] % (Auto) 9.2, Eos % (Auto) 0.0, Baso % (Auto) 0.0, Absolute Neuts (auto) 5.4, Absolute Lymphs (auto) 0.45 L, Nucleated RBC % 0.3, Polychromasia RARE, Anisocytosis 3+, Bite Cells RARE 06/03/21 06:40: Sodium 132 L, Potassium 4.0, Chloride 94 L, Carbon Dioxide 27.0, Anion Gap 11, BUN 45 H, Creatinine 3.75 H, Estim Creat Clear Calc 20.16, Est GFR (MDRD) Af Amer 21 L, Est GFR (MDRD) Non-Af 17 L, BUN/Creatinine Ratio 12.0, Glucose 130 H, Calcium 8.8 Micro: Microbiology 05/31/21 13:20 Interface Orders SARS-CoV-2 Antigen (Rapid) - Final Rhythm Strip Rhythm Strip: Sinus Rhythm Rate: 76 Ectopy: PVC(s) Physical Exam Const alert, oriented x3 and no apparent distress General Appearance: cooperative HEENT normocephalic and head/scalp atraumatic Eyes conjunctivae normal and no scleral icterus Neck supple General: trachea midline Resp normal respiratory effort Effort and Inspection: able to speak in complete sentences and symmetric chest movement Auscultation: rhonchi lower bilaterally and wheezes throughout Cardio regular rate, regular rhythm, S1 normal heart sound, S2 normal heart sound and peripheral pulses 2+ throughout GI normal to inspection, nondistended, normoactive bowel sounds, soft to palpation and non-tender Extremity normal capillary refill General Extremity: edema bilateral lower extremity Details: severe and no tenderness to palpation of joints or extremities Skin General Skin Exam: no breakdown, turgor normal and ecchymosis Lesions: no lesions Rashes: no rashes Neuro oriented x3, moves all extremities, no focal motor deficits and no sensory deficits noted Psych thought process normal Attitude: agitated and other Assessment & Plan Assessment/Plan (1) CHF (congestive heart failure): QUALIFIERS: Heart failure chronicity: chronic Heart failure type: unspecified Qualified Code(s): I50.9 - Heart failure, unspecified (2) Multifocal pneumonia: (3) ESRD (end stage renal disease) on dialysis: PLAN: 1. Chest pain -Resolved 2. Multifocal pneumonia -Continue cefepime and vancomycin -Sputum culture ordered, MRSA negative -Encourage incentive spirometry -Continue oxygen therapy, patient currently on 3 L nasal cannula oxygen. Per oxygen company patient is supposed to be on 2 L nasal cannula oxygen continuous -Mucinex ordered -Continue with patient's home regimen of tiotropium, fluticasone, p.o. albuterol -PT and OT following 3. Thoracic back pain -Chronic -X-ray demonstrates degenerative changes -As needed Tylenol and OxyIR ordered 4. End-stage renal disease -Patient received dialysis yesterday, 3 L taken off. Discussed with patient importance of following fluid restriction, states that he is aware he should be following one but he refuses -Dr. Perez following -BMP ordered daily -Daily weights ordered -Continue sevelamer Will continue patient's home medication regimen for chronic diseases including CAD, paroxysmal A. fib, hyperlipidemia, hypertension, anxiety. DVT prophylaxis-subcu heparin This patient was seen by LINDA Ballard under the supervision of Dr. Gonzalez. Documented by User: Dr. Ilda Gonzalez MD 06/03/21 16:01 Objective Data Lab / Micro Data Result Diagrams: 06/03/21 06:40 06/03/21 06:40 Charges/Coding Addendum Addendum: Patient seen by Ansley MCKEON under my supervision Patient seen and examined. He has no active complaints. Review of systems otherwise negative. He remains on 3L of oxygen. Review of systems is otherwise negative. O/E: Const alert, oriented x3 and no apparent distress General Appearance: cooperative HEENT normocephalic and head/scalp atraumatic Eyes conjunctivae normal and no scleral icterus Neck supple General: trachea midline Resp normal respiratory effort Effort and Inspection: Auscultation:mild wheezing and rhonchi. on 3L of oxygen Cardio regular rate, regular rhythm, S1 normal heart sound, S2 normal heart sound and peripheral pulses 2+ throughout GI normal to inspection, nondistended, normoactive bowel sounds, soft to palpation and non-tender Extremity normal capillary refill General Extremity: edema bilateral lower extremity Details: severe and no tenderness to palpation of joints or extremities Skin General Skin Exam: no breakdown, turgor normal and ecchymosis, LUE has AV fistula with good thrill Lesions: no lesions Rashes: no rashes Neuro oriented x3, moves all extremities, no focal motor deficits and no sensory deficits noted Psych thought process normal Affect:normal affect Continue IV vancomycin and cefepime. Nephrology on board for dialysis. Titrate oxygen to maintain sats >90%. Breathing treatments with bronchodilators. Anticipate discharge home over the next 24-48 hours. Continue Lovenox for DVT prophylaxis. Rest as per Ansley Quintero MORTGAGE PROCESSING MANAGER-C's note, which I have reviewed and endorsed. Visit Charges Inpatient E&M: 93866 Subs Hosp L2
[2021-06-03] MEDS: Acetaminophen 325 MG Tablet 650 MG PO (13:45)
[2021-06-03] MEDS: Atorvastatin Calcium 10 MG Tablet 5 MG PO (21:26)
[2021-06-03] MEDS: Albuterol 2.5 MG/3 ML VIAL.NEB. INHALATION (21:44)
[2021-06-04] VITALS (19 sets, daily range): BP systolic 105–151; BP diastolic 60–78; PULSE 64–108; RESP 12–26; TEMP 36.1–36.8; O2SAT 93–100
[2021-06-04] MEDS: 0.9% Saline Lock 10 ML Syringe IV ×2 (00:23→05:30)
[2021-06-04] MEDS: Docusate Sodium 100 MG Capsule 200 MG PO ×2 (00:24→18:50)
[2021-06-04] MEDS: MELATONIN 3 MG TABLET PO (00:24)
[2021-06-04] MEDS: oxyCODONE 5 MG Tablet PO ×3 (00:25→13:16)
[2021-06-04] MEDS: Ipratropium/Albuterol Sulfate 3 ML AMPUL.NEB INHALATION ×6 (02:28→22:28)
[2021-06-04] MEDS: SEVELAMER CARBONATE 800 MG TABLET PO ×3 (05:18→20:07)
[2021-06-04] MEDS: Albuterol 2.5 MG/3 ML VIAL.NEB. INHALATION ×2 (05:40→13:07)
[2021-06-04 06:02] LABS: Absolute Lymphocyte Count 0.27 X10^3/uL (0.83-4.51); Absolute Neutrophil Count 6.6 X10^3/uL (2.0-7.7); Hematocrit 32.2 % (40-54); Hemoglobin 10.1 g/dL (13.0-16.5); Lymphocyte # 0.27 X10^3/ul (0.83-4.51); Lymphocyte % 3.7 % (19-41); Mean Corp Hgb Conc 31.4 g/dL (32-36); Mean Corpuscular Hgb 31.7 pg (27.0-32.0); Mean Corpuscular Volume 100.9 fL (80-94); Mean Platelet Vol. 10.3 fl (6.2-12.0); Monocyte# 0.43 X10^3/uL; Monocyte% 5.9 % (0-10); NRBC Flagged by Analyzer 0.3 % (0-5); Neutrophil # 6.61 X10^3/uL (2.7-7.7); Neutrophil % 89.9 % (47-70); POSITIVE DIFFERENTIAL YES; POSITIVE MORPHOLOGY YES; Platelet Count 229 K/mm3 (150-450); RBC Distribution Width CV 20.9 % (11.6-14.6); RBC Distribution Width SD 74.3 fl (35.1-43.9); Red Blood Count 3.19 M/mm3 (4.6-6.2); White Blood Count 7.4 K/mm3 (4.4-11.0)
[2021-06-04 06:23] LABS: Differential Indicated SCAN CRITERIA MET
[2021-06-04 06:49] LABS: Anion Gap 12 (5-15); BUN 71 mg/dL (7-18); Calcium,Total 8.7 mg/dL (8.5-10.1); Chloride 93 mmol/L (98-107); Creatinine, Serum 5.08 mg/dL (0.70-1.30); EST Glomerular Filtration Rate 12 mL/min (>60); Est Glom Filt Rate - Afr Amer 15 mL/min (>60); Estimated Creatinine Clearance 14.88 ml/min; Glucose 148 mg/dL (74-106); Potassium 4.6 mmol/L (3.5-5.1); Sodium Level 128 mmol/L (136-145)
[2021-06-04 07:26] LABS: Anisocytosis 2+; Hypochromasia RARE; Macrocytosis 1+; Platelet Estimate ADEQUATE (ADEQ)
[2021-06-04] MEDS: Sertraline 100 MG Tablet PO (09:53)
[2021-06-04] MEDS: Tamsulosin HCl 0.4 MG Capsule PO (09:53)
[2021-06-04] MEDS: Clopidogrel Bisulfate 75 MG Tablet PO (09:53)
[2021-06-04] MEDS: Amiodarone 200 MG Tablet PO ×2 (09:53→20:06)
[2021-06-04] MEDS: Multivitamins,Ther W-Minerals Tablet 1 TABLET PO (09:53)
[2021-06-04] MEDS: guaiFENesin 1,200 MG Tablet 1200 MG PO ×2 (09:53→20:06)
[2021-06-04] MEDS: busPIRone 5 MG Tablet PO ×2 (09:53→20:05)
[2021-06-04] MEDS: dilTIAZem CD 180 MG Capsule PO (09:54)
[2021-06-04] MEDS: Umeclidinium Bromide Inhaler 1 PUFF INHALATION (09:54)
[2021-06-04] MEDS: Aspirin E.C. 81 MG Tablet PO (09:54)
[2021-06-04] MEDS: Heparin Injection (Vial) 5,000 UNIT/ML VIAL 5000 UNIT SC ×2 (09:54→20:06)
--- NOTE | 2021-06-04 10:46 | PN.RENAL_ITS ---
Subjective Subjective Still complains of shortness of breath. Wheezing improved. Scheduled for dialysis later today. Objective Data Objective Data Vital Signs: Vital Signs Temp Pulse Resp BP Pulse Ox 97.5 F L 80 20 H 135/70 H 99 06/04/21 08:00 06/04/21 08:00 06/04/21 08:00 06/04/21 08:00 06/04/21 08:00 Oxygen Flow Rate (L/min) 3 Oxygen Delivery Method Nasal Cannula Weight: 82.5 kg Body Mass Index (BMI) 26.5 Intake & Output: Intake and Output for Last 24 Hours 06/02/21 06/03/21 06/04/21 23:59 23:59 23:59 Intake Total 915 / 915 915 / 1015 150 / 150 Output Total 4000 / 4000 0 / 0 Balance -3085 / -3085 915 / 1015 150 / 150 Lab / Micro Data Result Diagrams: 06/04/21 05:46 06/04/21 05:46 Labs: Laboratory Results - last 24 hr 06/04/21 05:46: WBC 7.4, RBC 3.19 L, Hgb 10.1 L, Hct 32.2 L, MCV 100.9 H, MCH 31.7, MCHC 31.4 L, RDW Std Deviation 74.3 H, RDW Coeff of Karl 20.9 H, Plt Count 229, MPV 10.3, Immature Gran % (Auto) 0.500, Neut % (Auto) 89.9 H, Lymph % (Auto) 3.7 L, [place] % (Auto) 5.9, Eos % (Auto) 0.0, Baso % (Auto) 0.0, Absolute Neuts (auto) 6.6, Absolute Lymphs (auto) 0.27 L, Nucleated RBC % 0.3, Platelet Estimate ADEQUATE, Hypochromasia RARE, Anisocytosis 2+, Macrocytosis 1+ 06/04/21 05:46: Sodium 128 L, Potassium 4.6, Chloride 93 L, Carbon Dioxide 23.0, Anion Gap 12, BUN 71 H, Creatinine 5.08 H, Estim Creat Clear Calc 14.88, Est GFR (MDRD) Af Amer 15 L, Est GFR (MDRD) Non-Af 12 L, BUN/Creatinine Ratio 14.0, Glucose 148 H, Calcium 8.7 Micro: Microbiology 05/31/21 13:20 Interface Orders SARS-CoV-2 Antigen (Rapid) - Final Rhythm Strip Rhythm Strip: Sinus Rhythm Rate: 76 Ectopy: PVC(s) Physical Exam Const alert and oriented x3 Resp Auscultation: rhonchi Cardio regular rate GI non-tender Palpation: soft Extremity no clubbing, cyanosis or edema Assessment & Plan Assessment/Plan (1) ESRD (end stage renal disease) on dialysis: PLAN: Dialysis today. Okay from renal standpoint for discharge after dialysis. (2) Chest pain: PLAN: troponin neg. Dobut stress no ischemia in 2020 (3) Benign essential HTN: PLAN: stable (4) Anemia: PLAN: Hemoglobin stable (5) CHF (congestive heart failure): QUALIFIERS: Heart failure type: unspecified Heart failure chronicity: chronic Qualified Code(s): I50.9 - Heart failure, unspecified PLAN: Fluid removal on dialysis as tolerated. (6) Tobacco dependence: PLAN: COPD with wheezing, rhonchi, chronic (7) Cardiomyopathy:
--- NOTE | 2021-06-04 11:36 | PN.HOSP_ITS ---
Documented by User: iPyush TREJO 06/04/21 11:46 Subjective Subjective Patient is a 65-year-old male lying in bed, alert and oriented x3. Patient still reports ongoing shortness of breath, denies development of any new symptoms overnight. Does not appear in acute distress. Objective Data Objective Data Vital Signs: Vital Signs Temp Pulse Resp BP Pulse Ox 97.5 F L 79 20 H 135/70 H 99 06/04/21 08:00 06/04/21 11:03 06/04/21 08:00 06/04/21 08:00 06/04/21 08:00 Oxygen Flow Rate (L/min) 3 Oxygen Delivery Method Nasal Cannula Weight: 181 lb 14.102 oz Body Mass Index (BMI) 26.5 Intake & Output: Intake and Output for Last 24 Hours 06/02/21 06/03/21 06/04/21 23:59 23:59 23:59 Intake Total 915 / 915 915 / 1015 150 / 150 Output Total 4000 / 4000 0 / 0 Balance -3085 / -3085 915 / 1015 150 / 150 Lab / Micro Data Result Diagrams: 06/04/21 05:46 06/04/21 05:46 Labs: Laboratory Results - last 24 hr 06/04/21 05:46: WBC 7.4, RBC 3.19 L, Hgb 10.1 L, Hct 32.2 L, MCV 100.9 H, MCH 31.7, MCHC 31.4 L, RDW Std Deviation 74.3 H, RDW Coeff of Karl 20.9 H, Plt Count 229, MPV 10.3, Immature Gran % (Auto) 0.500, Neut % (Auto) 89.9 H, Lymph % (Auto) 3.7 L, [place] % (Auto) 5.9, Eos % (Auto) 0.0, Baso % (Auto) 0.0, Absolute Neuts (auto) 6.6, Absolute Lymphs (auto) 0.27 L, Nucleated RBC % 0.3, Platelet Estimate ADEQUATE, Hypochromasia RARE, Anisocytosis 2+, Macrocytosis 1+ 06/04/21 05:46: Sodium 128 L, Potassium 4.6, Chloride 93 L, Carbon Dioxide 23.0, Anion Gap 12, BUN 71 H, Creatinine 5.08 H, Estim Creat Clear Calc 14.88, Est GFR (MDRD) Af Amer 15 L, Est GFR (MDRD) Non-Af 12 L, BUN/Creatinine Ratio 14.0, Glucose 148 H, Calcium 8.7 Micro: Microbiology 05/31/21 13:20 Interface Orders SARS-CoV-2 Antigen (Rapid) - Final Rhythm Strip Rhythm Strip: Sinus Rhythm Rate: 76 Ectopy: PVC(s) Physical Exam Const alert, oriented x3 and no apparent distress HEENT head/scalp atraumatic and moist oral mucous membranes Head and Scalp: normocephalic Eyes PERRL, EOMs intact bilaterally and conjunctivae normal Neck no lymphadenopathy, supple and no JVD Resp Effort and Inspection: tachypneic and labored Auscultation: crackles Cardio regular rate, regular rhythm, no murmurs and no JVD GI normal to inspection, nondistended, normoactive bowel sounds, soft to palpation and non-tender Extremity normal to inspection, full ROM and no clubbing, cyanosis or edema Skin no rashes or lesions noted, no wounds, skin turgor normal and no jaundice Neuro CN's II-XII intact bilaterally Psych affect normal Assessment & Plan Assessment/Plan (1) Multifocal pneumonia: (2) ESRD (end stage renal disease) on dialysis: (3) CHF (congestive heart failure): QUALIFIERS: Heart failure chronicity: chronic Heart failure type: unspecified Qualified Code(s): I50.9 - Heart failure, unspecified PLAN: Day 4 Discharge planning: Discharge to [facility] living when medically ready. 1) Bilateral pneumonia Currently satting 99% on 3 L via nasal cannula, although respiratory rate still elevated between 20 to 25 breaths/min. CBC does not demonstrate a leukocytosis. Rapid Covid is negative. MRSA culture negative. Continue cefepime, supplementary oxygen and breathing treatments. 2) ESRD Dr. Perez following, to receive dialysis today in accordance with [facility] schedule. Continue to monitor BMP, continue daily weights and continue with sevelamer 3) Continue patient's home medication regimen for chronic diseases including CAD, paroxysmal A. fib, hyperlipidemia, hypertension, anxiety. DVT prophylaxis - Heparin Patient seen by Piyush Chawla PA-C, under the supervision of Dr. Caban. Documented by User: Dr. Harpreet Caban MD 06/04/21 17:06 Subjective Subjective Patient has multiple comorbidities. Admitted multifocal pneumonia. Patient has end-stage renal disease on dialysis, anuric, CHF and COPD. Nonadherent to medications and physicians follow-up. Still mild short of breath. Want to change the earthmoving labourer. Objective Data Lab / Micro Data Result Diagrams: 06/04/21 05:46 06/04/21 05:46 Physical Exam Narrative General: Alert, Oriented x3, Cooperative HEENT: Atraumatic, PERRLA, EOMI, Normocephalic Oral: No Gingival or Mucosal Lesions/ Ulcerations Neck: Supple, No JVD, Negative Carotid Bruits Lungs: Air entry diminished in bilateral lung bases. Dyspnea on exertion. Mild bilateral effusion Cardiovascular: Sinus rhythm, Normal S1, Normal S2, No murmurs Abdomen: Bowel Sounds Present, Soft, Non Tender, Non-Distended : No renal angle tenderness. No suprapubic tenderness. Extremities: Bilateral leg pitting edema, Capillary Refill Less than 3 Seconds Skin: No rashes, No breakdown Musculoskeletal: ROM restricted. No tenderness of joints. Neurological: Cranial nerves II-XII grossly intact, DTR 2+/4 and Symmetrical, Neuro grossly intact Psych/Mental Status: Normal Affect, Appropriate. Assessment & Plan Assessment/Plan (1) Multifocal pneumonia: PLAN: This patient was seen in conjunction with NEIL Wilks. I have independently interviewed and examined the patient and reviewed pertinent history, examination findings, laboratory and plan of management. I have reviewed the note and agree with the documented findings with the few additional points. In brief, patient is 65-year-old gentleman admitted with multifocal bilateral pneumonia. Patient patient is admitted for pneumonia intermittently for last 2 months, chronic back pain and with intermittent chest pain. Chest pain has resolved. Currently on 3 L of oxygen. On IV cefepime. MRSA PCR is negative. Discussed with the earthmoving labourer Dr. Chris Rios- take care during this hospital course but will switch to [place] earthmoving labourer as an outpatient. During this week his dialysis will be Friday and Friday because of holiday on . The next week his dialysis schedule will return to Friday and Friday. Also discussed with Dr. ORO I have discussed my assessment with NEIL Wilks and orders have been reviewed. Charges/Coding Visit Charges Inpatient E&M: 10442 Subs Hosp L2
--- NOTE | 2021-06-04 11:45 | CASEMGMT ---
Patient has refused therapy every day. MJ faxed updates to [facility]. Francie Sexton [employer]UTIONS SPECIALIST DENEEN
[2021-06-04] MEDS: Metoprolol(XL)Succ 25 MG Tablet 12.5 MG PO ×2 (13:17→20:07)
--- NOTE | 2021-06-04 15:18 | NURSING ---
This RN reviewed SN charting
--- NOTE | 2021-06-04 18:37 | DIALYSIS ---
Hemodialysis completed at 1700 on a 2K bath, tolerated well, UF 3100mL, ended 15mins early due to needing to have BM, refusing bedpan, accessed via LOBITO AVF using 15G needles, worked well, needles pulled after back from bathroom, stasis achieved without issue, next tx planned for Friday due to holiday schedule
[2021-06-04] MEDS: Atorvastatin Calcium 10 MG Tablet 5 MG PO (20:06)
[2021-06-05] VITALS (11 sets, daily range): BP systolic 103–135; BP diastolic 59–91; PULSE 88–107; RESP 16–28; TEMP 36.4–36.6; O2SAT 97–100
[2021-06-05] MEDS: Albuterol 2.5 MG/3 ML VIAL.NEB. INHALATION ×4 (01:09→13:30)
[2021-06-05] MEDS: Acetaminophen 325 MG Tablet 650 MG PO (03:03)
[2021-06-05] MEDS: Ipratropium/Albuterol Sulfate 3 ML AMPUL.NEB INHALATION ×2 (03:13→07:55)
[2021-06-05] MEDS: Docusate Sodium 100 MG Capsule 200 MG PO (03:25)
[2021-06-05] MEDS: SEVELAMER CARBONATE 800 MG TABLET PO ×2 (05:04→12:51)
[2021-06-05] MEDS: Calcium Carbonate 500 MG Tablet PO (06:47)
[2021-06-05 08:04] LABS: Absolute Lymphocyte Count 0.74 X10^3/uL (0.83-4.51); Absolute Neutrophil Count 6.5 X10^3/uL (2.0-7.7); Basophil# 0.01 X10^3/uL; Basophil% 0.1 % (0-1); Hematocrit 34.4 % (40-54); Hemoglobin 10.6 g/dL (13.0-16.5); Lymphocyte # 0.74 X10^3/ul (0.83-4.51); Lymphocyte % 8.8 % (19-41); Mean Corp Hgb Conc 30.8 g/dL (32-36); Mean Corpuscular Volume 100.6 fL (80-94); Mean Platelet Vol. 10.1 fl (6.2-12.0); Monocyte# 1.09 X10^3/uL; NRBC Flagged by Analyzer 0.5 % (0-5); Neutrophil # 6.51 X10^3/uL (2.7-7.7); Neutrophil % 77.5 % (47-70); POSITIVE MORPHOLOGY YES; Platelet Count 233 K/mm3 (150-450); RBC Distribution Width CV 22.1 % (11.6-14.6); Red Blood Count 3.42 M/mm3 (4.6-6.2); White Blood Count 8.4 K/mm3 (4.4-11.0)
[2021-06-05 08:10] LABS: Differential Indicated SCAN CRITERIA MET
[2021-06-05 08:27] LABS: Anion Gap 11 (5-15); BUN 51 mg/dL (7-18); BUN/Creat Ratio 13.6 RATIO (10-20); Calcium,Total 8.1 mg/dL (8.5-10.1); Chloride 98 mmol/L (98-107); Creatinine, Serum 3.74 mg/dL (0.70-1.30); EST Glomerular Filtration Rate 18 mL/min (>60); Est Glom Filt Rate - Afr Amer 21 mL/min (>60); Estimated Creatinine Clearance 20.22 ml/min; Glucose 106 mg/dL (74-106); Potassium 4.1 mmol/L (3.5-5.1); Sodium Level 134 mmol/L (136-145)
[2021-06-05 08:33] LABS: Anisocytosis 1+
--- NOTE | 2021-06-05 10:16 | CASEMGMT ---
MJ called [facility] and spoke with Yesika. MJ let Yesika know that patient will be returning today. [facility]. MJ fixed this in the computer. MJ spoke with patient about his dialysis transportation this week due to the holiday. Patient said he does not know who sets up his transport. [facility] normally transports him. JM called [facility] and spoke with Oliva. Oliva said they were planning on transporting him on Fri and Sat this week due to the holiday. MJ let Oliva know that he is discharging home today. She thanked MJ for the update. Francie Sexton RESIDENTIAL GLAZIER DENEEN
--- NOTE | 2021-06-05 10:31 | PCM.DC ---
Discharge Instructions Diet Discharge Diet: No restrictions Activity Discharge Activity: Return to Normal Activity Weight Bearing Status: Weight bearing as tolerated Dressing / Incision Call your doctor if you observe: Fever of 101 or Higher, Numbness or Tingling, Shortness of breath, Dizziness, Chest pain, Increased palpitations (irregular heartbeat) and Calf discomfort Follow Up Care Please Follow Up With: Primary care provider When: Within the next two weeks. Test Results: Test results from this visit will be discussed in further detail at your follow-up appointment, if applicable. Discharge Plan Admission Admit Date/Time: 05/31/21 15:19 Primary Reason for Your Visit: Shortness of breath Attending Provider: Harpreet Caban Primary Care Provider: Doron Recio Consulting Providers: Ely Perez Instructions Additional Instructions / Restrictions: *To be dialyzed on Friday06/06/2021 and Friday06/08/2021, off of regular T,Th,S schedule due to . *Resume T, Th, S dialysis schedule next week starting 06/12/2021. Discharge Orders/Prescriptions Prescriptions: New levofloxacin 750 mg tablet 750 mg PO DAILY Qty: 3 RF: 0 Continued albuterol sulfate 2 mg/5 mL syrup 2 mg PO TID RF: 0 tamsulosin 0.4 MG capsule 0.4 mg PO DAILY Qty: 30 RF: 1 aspirin 81 mg tablet,delayed release (DR/EC) 81 mg PO DAILY Qty: 30 RF: 1 clopidogrel 75 mg tablet 75 mg PO DAILY Qty: 30 RF: 0 diltiazem HCl 180 mg capsule,extended release 24hr 180 mg PO DAILY Qty: 30 RF: 0 amiodarone 200 mg tablet 200 mg PO BID Qty: 60 RF: 0 sevelamer HCl [Renagel] 800 mg tablet 800 mg PO TID RF: 0 buspirone 5 mg Tablet 5 mg PO BID RF: 0 fluticasone propion-salmeterol [Wixela Inhub] 250-50 mcg/dose Blister With Device 1 inh INHALATION BID RF: 0 lovastatin 20 mg Tablet 40 mg PO QPM RF: 0 loratadine 10 mg tablet 10 mg PO QODAY RF: 0 Spiriva with HandiHaler 18 mcg capsule, w/inhalation device 18 mcg INHALATION DAILY RF: 0 metoprolol succinate 25 mg tablet extended release 24 hr 12.5 mg PO BID RF: 0 Held sertraline [Zoloft] 100 mg tablet 100 mg PO DAILY RF: 0 Hold Instructions: Resume on 06/09/21. Hold due to QT prolongation with Levaquin. Resume on June 09, 2021. Referrals / Follow Up: Edilma Parker MD [STAFF PHYSICIAN] - Within 1 Week Doron Recio MD [Primary Care Provider] - Within 2 Weeks Disposition Disposition (needs filled in before D/C Order can be placed): Assisted Living
[2021-06-05] MEDS: Amiodarone 200 MG Tablet PO (10:33)
[2021-06-05] MEDS: busPIRone 5 MG Tablet PO (10:34)
[2021-06-05] MEDS: Tamsulosin HCl 0.4 MG Capsule PO (10:34)
[2021-06-05] MEDS: dilTIAZem CD 180 MG Capsule PO (10:34)
[2021-06-05] MEDS: Metoprolol(XL)Succ 25 MG Tablet 12.5 MG PO (10:34)
[2021-06-05] MEDS: Aspirin E.C. 81 MG Tablet PO (10:34)
[2021-06-05] MEDS: Clopidogrel Bisulfate 75 MG Tablet PO (10:34)
[2021-06-05] MEDS: Sertraline 100 MG Tablet PO (10:34)
[2021-06-05] MEDS: Multivitamins,Ther W-Minerals Tablet 1 TABLET PO (10:35)
[2021-06-05] MEDS: guaiFENesin 1,200 MG Tablet 1200 MG PO (10:36)
[2021-06-05] MEDS: Umeclidinium Bromide Inhaler 1 PUFF INHALATION (10:36)
[2021-06-05] MEDS: Heparin Injection (Vial) 5,000 UNIT/ML VIAL 5000 UNIT SC (10:37)
[2021-06-05] MEDS: predniSONE 20 MG Tablet 40 MG PO (10:45)
--- NOTE | 2021-06-05 11:25 | PHA.DC.MR ---
Pharmacy Service has performed discharge medication reconciliation for this patient. The patient's discharge medication list was reviewed for discrepancies and discrepancies were resolved. This [facility] spoke to NEIL Chawla regarding levoflxoacin dose. Since patient is on HD, dose should be 750mg x1 then 500mg Q48H. 750mg dose given before discharge then patient will get a 500mg x1 dose on 06/07. New med list printed, signed and given to SW. Home Medications albuterol sulfate 2 mg/5 mL oral syrup 2 mg PO TID 12/15/19 sertraline [Zoloft] 100 mg PO DAILY 03/08/21 aspirin 81 mg PO DAILY #30 tab 03/11/21 tamsulosin 0.4 mg PO DAILY #30 cap 03/11/21 amiodarone 200 mg PO BID #60 tab 03/17/21 clopidogrel 75 mg PO DAILY #30 tab 03/17/21 diltiazem HCl 180 mg PO DAILY #30 cap 03/17/21 sevelamer HCl [Renagel] 800 mg PO TID 03/26/21 Spiriva with HandiHaler 18 mcg INHALATION DAILY 05/31/21 buspirone 5 mg PO BID 05/31/21 fluticasone propion-salmeterol [Wixela Inhub] 1 inh INHALATION BID 05/31/21 loratadine 10 mg PO QODAY 05/31/21 lovastatin 40 mg PO QPM 05/31/21 metoprolol succinate 12.5 mg PO BID 05/31/21 levofloxacin 500 mg PO DAILY #1 tab 06/05/21
--- NOTE | 2021-06-05 11:55 | CASEMGMT ---
Per nursing and notes, pt's sats are fine on 3Lnc but pt prefers oxygen up to 4-5L. Pt's order is for 3L at home but pt turns up at home also. SStkushal REAGAN CM
--- NOTE | 2021-06-05 12:07 | CASEMGMT ---
MJ faxed d/c orders to [facility]. MJ arranged for patient to get picked up at [address] via wc van. MJ notified rotary swaging machine operator, RN, patient, and Yesika at [facility]. Yesika said Hope is concerned that patient declined therapy. MJ told her that he has refused to get up. CUSTOM SHOE DESIGNER AND MAKER is in his room now helping him move to the chair. Plan: d/c back to [facility] [place]. Francie BROTHERS
[2021-06-05] MEDS: levoFLOXacin 750 MG Tablet PO (12:51)
--- NOTE | 2021-06-05 13:06 | PCM.DC.SUM ---
Documented by User: Piyush TREJO 06/05/21 13:19 Providers Date of Admission: 05/31/21 Primary Care Physician: Dr. Doron Recio MD Consultations 05/31/21 16:23 Consult: Nephrology Routine Consulting Provider: Ely Perez Reason for Consult: ESRD EMERGENT Consult: No MD Notified: Yes Date Notified: 05/31/21 Time Notified: 17:45 Method of Notification: Text Reason For Visit: MULTIFOCAL PNEUMONIA Diagnosis Discharge Diagnosis (1) Multifocal pneumonia: Status: Acute Code(s): J18.9 - Pneumonia, unspecified organism Medications at Discharge Home Medications albuterol sulfate 2 mg/5 mL oral syrup 2 mg PO TID 12/15/19 sertraline [Zoloft] 100 mg PO DAILY 03/08/21 aspirin 81 mg PO DAILY #30 tab 03/11/21 tamsulosin 0.4 mg PO DAILY #30 cap 03/11/21 amiodarone 200 mg PO BID #60 tab 03/17/21 clopidogrel 75 mg PO DAILY #30 tab 03/17/21 diltiazem HCl 180 mg PO DAILY #30 cap 03/17/21 sevelamer HCl [Renagel] 800 mg PO TID 03/26/21 Spiriva with HandiHaler 18 mcg INHALATION DAILY 05/31/21 buspirone 5 mg PO BID 05/31/21 fluticasone propion-salmeterol [Wixela Inhub] 1 inh INHALATION BID 05/31/21 loratadine 10 mg PO QODAY 05/31/21 lovastatin 40 mg PO QPM 05/31/21 metoprolol succinate 12.5 mg PO BID 05/31/21 levofloxacin 500 mg PO DAILY #1 tab 06/05/21 Hospital Course Summary of Care Provided Minutes Spent on Discharge: 35 Hospital Course: Patient is a 65-year-old male who was admitted to the hospital on 05/31/2021 for management of acute on chronic hypoxic respiratory failure secondary to multifocal pneumonia. Patient was placed on cefepime empirically and monitored. Rapid Covid was negative. On day of discharge patient was satting 100% on 4 L via nasal cannula and respirations are 20 breath per minute. Patient is on oxygen at home and uses between 3 to 5 L at baseline. Patient was treated on cefepime hospital. On discharge, patient was given Levaquin 750x1 while in the hospital and is to take Levaquin at 500 mg every 48 hours after discharge, due to renal dosing. Patient has end-stage renal disease and was dialyzed in the hospital. Patient requested that he not be seen by Dr. Perez anymore, and care was transferred to Dr. Oro. Patient is usually on Friday, and Friday schedule for dialysis, however due to hol patient was switched to a M, W, F schedule. Patient is to resume dialysis on 06/06 for M, W, F schedule and will resume his 2 J starting on 06/12/2021. Patient seen by Piyush Chawla PA-C, under the supervision of Dr. Caban. Physical Exam Narrative Patient is a 65-year-old male comfortably lying in bed, alert and orient x3. Patient reports that shortness of breath is improved admission. Denies development of any new complaints overnight. Does not appear in acute distress. Const alert, oriented x3 and no apparent distress HEENT normocephalic, head/scalp atraumatic and hearing grossly normal bilaterally Eyes PERRL, EOMs intact bilaterally and conjunctivae normal Neck no lymphadenopathy, supple and no JVD Neck Narrative: Resp normal respiratory effort, normal air movement and no retractions Resp Narrative: Currently satting 100% on 4 L via nasal cannula. Auscultation: diminished lung sounds Cardio regular rate, regular rhythm, no murmurs and no JVD GI normal to inspection, nondistended, normoactive bowel sounds, soft to palpation and non-tender Extremity normal to inspection, full ROM and no clubbing, cyanosis or edema Skin no rashes or lesions noted, no wounds and skin turgor normal Neuro CN's II-XII intact bilaterally Psych affect normal Weight / BMI Weight Weight: 180 lb 12.465 oz Body Mass Index (BMI) 26.5 ABG / Lab / Microbiology Data Result Diagrams: 06/05/21 07:48 06/05/21 07:48 Laboratory: Laboratory Results - last 24 hr 06/05/21 07:48: WBC 8.4, RBC 3.42 L, Hgb 10.6 L, Hct 34.4 L, MCV 100.6 H, MCH 31.0, MCHC 30.8 L, RDW Std Deviation 78.0 H, RDW Coeff of Karl 22.1 H, Plt Count 233, MPV 10.1, Immature Gran % (Auto) 0.600, Neut % (Auto) 77.5 H, Lymph % (Auto) 8.8 L, [place] % (Auto) 13.0 H, Eos % (Auto) 0.0, Baso % (Auto) 0.1, Absolute Neuts (auto) 6.5, Absolute Lymphs (auto) 0.74 L, Nucleated RBC % 0.5, Anisocytosis 1+ 06/05/21 07:48: Sodium 134 L, Potassium 4.1, Chloride 98, Carbon Dioxide 25.0, Anion Gap 11, BUN 51 H, Creatinine 3.74 H, Estim Creat Clear Calc 20.22, Est GFR (MDRD) Af Amer 21 L, Est GFR (MDRD) Non-Af 18 L, BUN/Creatinine Ratio 13.6, Glucose 106, Calcium 8.1 L Microbiology: Microbiology 05/31/21 13:20 Interface Orders SARS-CoV-2 Antigen (Rapid) - Final D/C Instructions Discharge Diet: No restrictions Weight Bearing Status: Weight bearing as tolerated Call your doctor if you observe: Fever of 101 or Higher, Numbness or Tingling, Shortness of breath, Dizziness, Chest pain, Increased palpitations (irregular heartbeat) and Calf discomfort Please Follow Up With: Primary care provider When: Within the next two weeks. Meaningful Use Info Meaningful Use Diagnoses (Choose all that apply): None applicable Discharge Plan Admission Admit Date/Time: 05/31/21 15:19 Primary Reason for Your Visit: Shortness of breath Attending Provider: Harpreet Caban Primary Care Provider: Doron Recio Consulting Providers: Ely Perez Instructions Additional Instructions / Restrictions: *To be dialyzed on Friday06/06/2021 and Friday06/08/2021, off of regular ,, schedule due to . *Resume , dialysis schedule next week starting 06/12/2021. Discharge Orders/Prescriptions Prescriptions: New levofloxacin 500 mg tablet 500 mg PO DAILY Qty: 1 RF: 0 Continued albuterol sulfate 2 mg/5 mL syrup 2 mg PO TID RF: 0 tamsulosin 0.4 MG capsule 0.4 mg PO DAILY Qty: 30 RF: 1 aspirin 81 mg tablet,delayed release (DR/EC) 81 mg PO DAILY Qty: 30 RF: 1 clopidogrel 75 mg tablet 75 mg PO DAILY Qty: 30 RF: 0 diltiazem HCl 180 mg capsule,extended release 24hr 180 mg PO DAILY Qty: 30 RF: 0 amiodarone 200 mg tablet 200 mg PO BID Qty: 60 RF: 0 sevelamer HCl [Renagel] 800 mg tablet 800 mg PO TID RF: 0 buspirone 5 mg Tablet 5 mg PO BID RF: 0 fluticasone propion-salmeterol [Wixela Inhub] 250-50 mcg/dose Blister With Device 1 inh INHALATION BID RF: 0 lovastatin 20 mg Tablet 40 mg PO QPM RF: 0 loratadine 10 mg tablet 10 mg PO QODAY RF: 0 Spiriva with HandiHaler 18 mcg capsule, w/inhalation device 18 mcg INHALATION DAILY RF: 0 metoprolol succinate 25 mg tablet extended release 24 hr 12.5 mg PO BID RF: 0 Held sertraline [Zoloft] 100 mg tablet 100 mg PO DAILY RF: 0 Hold Instructions: Resume on 06/09/21. Hold due to QT prolongation with Levaquin. Resume on June 09, 2021. Referrals / Follow Up: Edilma Oro MD [STAFF PHYSICIAN] - Within 1 Week (Please call to setup an appointment) Doron Recio MD [Primary Care Provider] - Within 2 Weeks (Please call to setup an appointment. ) Disposition Disposition (needs filled in before D/C Order can be placed): Assisted Living Documented by User: Dr. Harpreet Caban MD 06/05/21 16:24 Providers Date of Admission: 05/31/21 Reason For Visit: MULTIFOCAL PNEUMONIA Medications at Discharge Home Medications albuterol sulfate 2 mg/5 mL oral syrup 2 mg PO TID 12/15/19 sertraline [Zoloft] 100 mg PO DAILY 03/08/21 aspirin 81 mg PO DAILY #30 tab 03/11/21 tamsulosin 0.4 mg PO DAILY #30 cap 03/11/21 amiodarone 200 mg PO BID #60 tab 03/17/21 clopidogrel 75 mg PO DAILY #30 tab 03/17/21 diltiazem HCl 180 mg PO DAILY #30 cap 03/17/21 sevelamer HCl [Renagel] 800 mg PO TID 03/26/21 Spiriva with HandiHaler 18 mcg INHALATION DAILY 05/31/21 buspirone 5 mg PO BID 05/31/21 fluticasone propion-salmeterol [Wixela Inhub] 1 inh INHALATION BID 05/31/21 loratadine 10 mg PO QODAY 05/31/21 lovastatin 40 mg PO QPM 05/31/21 metoprolol succinate 12.5 mg PO BID 05/31/21 levofloxacin 500 mg PO DAILY #1 tab 06/05/21 Hospital Course Summary of Care Provided Hospital Course: This patient was seen in conjunction with NEIL Wilks. I have independently interviewed and examined the patient and reviewed pertinent history, examination findings, laboratory and plan of management. I have reviewed the note and agree with the documented findings with the few additional points. In brief, patient is 65-year-old gentleman admitted with multifocal bilateral pneumonia. Patient patient is admitted for pneumonia intermittently for last 2 months, chronic back pain and with intermittent chest pain. Chest pain has resolved. Currently on 3 L of oxygen. On IV cefepime. MRSA PCR is negative. Discussed with the site supervising technical operator Dr. Perez and she took care during this hospital course but will switch to [place] site supervising technical operator as an outpatient. During this week his dialysis will be Friday and Friday because of holiday on . The next week his dialysis schedule will return to Friday and Friday. Also discussed with Dr. ORO and he will resume care of his dialysis as an outpatient. Patient is discharged home on antibiotic Levaquin to complete total of 7 days. Advised to decrease the dose of sertraline while the patient is on Levaquin to avoid QT prolonging effect. Discharge medication reconciliation done. Discharge follow-up instructions completed. Discharge process discussed with the patient and all questions were answered to patient's satisfaction. Total time spent, exact 35 minutes on discharge meds reconciliation, examination, coordination of care with nurses and ancillary staff, review of imaging and blood test and discussion with the patient on follow-up instructions I have discussed my assessment with NEIL Wilks and orders have been reviewed. Physical Exam Narrative Seen and examined. General: Alert, Oriented x3, Cooperative HEENT: Atraumatic, PERRLA, EOMI, Normocephalic Oral: No Gingival or Mucosal Lesions/ Ulcerations Neck: Supple, No JVD, Negative Carotid Bruits Lungs: Air entry diminished in bilateral lung bases. Mild dyspnea on exertion. Chronic mild bilateral effusion Cardiovascular: Sinus rhythm, Normal S1, Normal S2, No murmurs Abdomen: Bowel Sounds Present, Soft, Non Tender, Non-Distended : On dialysis, anuric no renal angle tenderness. No suprapubic tenderness. Extremities: Bilateral leg pitting edema improved, Capillary Refill Less than 3 Seconds Skin: No rashes, No breakdown Musculoskeletal: ROM restricted. No tenderness of joints. Neurological: Cranial nerves II-XII grossly intact, DTR 2+/4 and Symmetrical, Neuro grossly intact Psych/Mental Status: Normal Affect, Appropriate. ABG / Lab / Microbiology Data Result Diagrams: 06/05/21 07:48 06/05/21 07:48 Discharge Plan Admission Admit Date/Time: 05/31/21 15:19 Primary Reason for Your Visit: Shortness of breath Attending Provider: Harpreet Caban Primary Care Provider: Doron Recio Consulting Providers: Ely Perez Instructions Additional Instructions / Restrictions: *To be dialyzed on Friday06/06/2021 and Friday06/08/2021, off of regular ,, schedule due to . *Resume , , S dialysis schedule next week starting 06/12/2021. Discharge Orders/Prescriptions Prescriptions: New levofloxacin 500 mg tablet 500 mg PO DAILY Qty: 1 RF: 0 Continued albuterol sulfate 2 mg/5 mL syrup 2 mg PO TID RF: 0 tamsulosin 0.4 MG capsule 0.4 mg PO DAILY Qty: 30 RF: 1 aspirin 81 mg tablet,delayed release (DR/EC) 81 mg PO DAILY Qty: 30 RF: 1 clopidogrel 75 mg tablet 75 mg PO DAILY Qty: 30 RF: 0 diltiazem HCl 180 mg capsule,extended release 24hr 180 mg PO DAILY Qty: 30 RF: 0 amiodarone 200 mg tablet 200 mg PO BID Qty: 60 RF: 0 sevelamer HCl [Renagel] 800 mg tablet 800 mg PO TID RF: 0 buspirone 5 mg Tablet 5 mg PO BID RF: 0 fluticasone propion-salmeterol [Wixela Inhub] 250-50 mcg/dose Blister With Device 1 inh INHALATION BID RF: 0 lovastatin 20 mg Tablet 40 mg PO QPM RF: 0 loratadine 10 mg tablet 10 mg PO QODAY RF: 0 Spiriva with HandiHaler 18 mcg capsule, w/inhalation device 18 mcg INHALATION DAILY RF: 0 metoprolol succinate 25 mg tablet extended release 24 hr 12.5 mg PO BID RF: 0 Held sertraline [Zoloft] 100 mg tablet 100 mg PO DAILY RF: 0 Hold Instructions: Resume on 06/09/21. Hold due to QT prolongation with Levaquin. Resume on June 09, 2021. Referrals / Follow Up: Edilma Oro MD [STAFF PHYSICIAN] - Within 1 Week (Please call to setup an appointment) Doron Recio MD [Primary Care Provider] - Within 2 Weeks (Please call to setup an appointment. ) Disposition Disposition (needs filled in before D/C Order can be placed): Assisted Living Charges/Coding Visit Charges Inpatient E&M: 01580 Disch Hosp
--- NOTE | 2021-06-05 13:26 | PCM.PN.BLA ---
Progress Note pt request transfer of care to Dr. Parker who has accepted pt. Discharge to home today. Follow up with Dr. Parker at [facility].
--- NOTE | 2021-06-05 13:27 | NURSING ---
Report called to [facility]
== END 2021-06-05 13:41 | disposition home or self-care (01) | DRG 193 ==
LOC: ED 13:49 → PCU 15:27
PROVIDERS: Internal Medicine Nephrology; Nurse Practitioner Family; Physician Assistant; Admitting Provider Internal Medicine; Emergency Provider Emergency Medicine; PCP Family Medicine; Visit Provider Internal Medicine
DX: J18.9 Pneumonia, unspecified organism (principal); J96.21 Acute and chronic respiratory failure with hypoxia; N18.6 End stage renal disease; I50.23 Acute on chronic systolic (congestive) heart failure; J44.0 Chronic obstructive pulmonary disease with (acute) lower respiratory infection; I48.19 Other persistent atrial fibrillation; I13.2 Hypertensive heart and chronic kidney disease with heart failure and with stage 5 chronic kidney disease, or end stage renal disease; Q61.3 Polycystic kidney, unspecified; I42.9 Cardiomyopathy, unspecified; Z99.2 Dependence on renal dialysis; F17.210 Nicotine dependence, cigarettes, uncomplicated; Z91.11 Patient's noncompliance with dietary regimen; M54.6 Pain in thoracic spine; G89.29 Other chronic pain; I25.10 Atherosclerotic heart disease of native coronary artery without angina pectoris; E78.5 Hyperlipidemia, unspecified; F41.9 Anxiety disorder, unspecified; Z79.899 Other long term (current) drug therapy; Z95.5 Presence of coronary angioplasty implant and graft; D63.1 Anemia in chronic kidney disease; R53.81 Other malaise
CPT/HCPCS: 36415; 71045; 72072; 80048; 80202; 84100; 84484; 85025; 85610; 87426; 87641; 90937; 93005; 94640; 94667; 94668; 97802; 99251; 99285; 99406; J7030; J7050; A4216; G0257; G0463

== ENCOUNTER 2021-06-05 19:22 | Emergency (ER) | payer MEDICARE, MEDICAID, SELFPAY ==
[2021-06-05 19:23] VITALS: BP 120/69; PULSE 87; RESP 20; TEMP 35.8; O2SAT 98; BMI 26.6
[2021-06-05 19:26] VITALS: O2SAT 100
--- NOTE | 2021-06-05 21:40 | RAD_ITS ---
HISTORY: back pain, pneumonia EXAMINATION/TECHNIQUE: XR Chest 1 View: COMPARISON: May 31, 2021 FINDINGS: LINES/DEVICES: None. LUNGS: Patchy right basilar opacity, decreased from prior exam. Persistent layering opacification of the left lung base. Unremarkable interstitium. No pneumothorax. MEDIASTINUM: No cardiomegaly. MUSCULOSKELETAL: No acute osseous finding. RAD/Chest 1 View (Portable) IMPRESSION: Patchy right basilar airspace opacity with improvement from prior exam. Persistent layering opacification of the left lung base, compatible with effusion, with underlying atelectasis and/or consolidation. at 2341 Reported and signed by: Juan Aguilar MD Electronically Signed: Juan Aguilar MD at 23:39 EST Tel , Service support ,
[2021-06-05] MEDS: oxyCODONE 5 MG Tablet PO (21:45)
--- NOTE | 2021-06-05 22:45 | EDS_ITS ---
HPI History of Present Illness Chief Complaint: Back Informant: patient Narrative Narrative: Patient presents with acute on chronic back pain. Patient was admitted to the hospital May 31 and discharged earlier today for pneumonia. He was treated with oxycodone 2-3 times a day while in the hospital. Patient presents back by squad tonight stating that he is short of breath and has severe back pain. On review of records patient had a prescription for Percocet filled on May 28 for 28 days, 1 tab twice daily. Patient denies new fall or injury. [facility] Medical History Adrenal adenoma Alcohol addiction Alcoholic cardiomyopathy Anemia due to chronic illness Atherosclerotic heart disease of [place] coronary artery without angina pectoris Atrial fibrillation and flutter Atrial fibrillation with rapid ventricular response (04/2019) Back pain Benign essential HTN Benign hypertension BPH (benign prostatic hyperplasia) Cardiomyopathy in diseases classified elsewhere Chronic obstructive pulmonary disease Chronic renal failure, stage 4 (severe) Chronic serous otitis media of left ear COPD (chronic obstructive pulmonary disease) Current drinker of alcohol Diverticulosis End-stage renal disease on hemodialysis ESRD (end stage renal disease) on dialysis Hiatal hernia HLD (hyperlipidemia) Hyperlipidemia Nicotine dependence Paroxysmal atrial fibrillation Persistent atrial fibrillation PKD (polycystic kidney disease) Problem with dialysis access Home Medications albuterol sulfate 2 mg/5 mL oral syrup 2 mg PO TID 12/15/19 [History Last Taken 05/31/21] sertraline [Zoloft] 100 mg PO DAILY 03/08/21 [History Last Taken 05/31/21] aspirin 81 mg PO DAILY #30 tab 03/11/21 [Rx Last Taken 05/31/21] tamsulosin 0.4 mg PO DAILY #30 cap 03/11/21 [Rx Last Taken 05/31/21] amiodarone 200 mg PO BID #60 tab 03/17/21 [Rx Last Taken 05/31/21] clopidogrel 75 mg PO DAILY #30 tab 03/17/21 [Rx Last Taken 05/31/21] diltiazem HCl 180 mg PO DAILY #30 cap 03/17/21 [Rx Last Taken 05/31/21] sevelamer HCl [Renagel] 800 mg PO TID 03/26/21 [History Last Taken 05/31/21] Spiriva with HandiHaler 18 mcg INHALATION DAILY 05/31/21 [History Last Taken 05/31/21] buspirone 5 mg PO BID 05/31/21 [History Last Taken 05/31/21] fluticasone propion-salmeterol [Wixela Inhub] 1 inh INHALATION BID 05/31/21 [History Last Taken 05/31/21] loratadine 10 mg PO QODAY 05/31/21 [History Last Taken 05/30/21] lovastatin 40 mg PO QPM 05/31/21 [History Last Taken 05/25/21] metoprolol succinate 12.5 mg PO BID 05/31/21 [History Last Taken 05/31/21] levofloxacin 500 mg PO DAILY #1 tab 06/05/21 [Rx Last Taken Unknown] oxycodone 5 mg PO Q8H PRN 3 Days #10 tab 06/05/21 [Rx Last Taken Unknown] Allergy/AdvReac Type Severity Reaction Status Date / Time Penicillins Allergy Unknown Verified 05/31/21 13:11 Family History Mother Cancer brain Father Cancer throat Surgical History History of angioplasty of peripheral vessel (07/2019) History of coronary artery stent placement Surgically constructed arteriovenous fistula Social History household members: none housing: apartment Smoking Status: Current every day smoker tobacco type: cigarettes alcohol intake: current Alcohol type: beer details: Notes 2-3 beers, QOD substance use type: does not use ROS ROS ED Constitutional Constitutional ED: Denies chills or fever(s) Eyes Eyes: Denies change in vision ENT ENT ED: Denies sore throat Cardiovascular Cardiovascular: Denies chest pain Respiratory/Chest Respiratory/Chest: Reports cough and dyspnea Gastrointestinal Gastrointestinal: Denies abdominal pain, diarrhea, nausea or vomiting Genitourinary Genitourinary ED: Denies dysuria Musculoskeletal Musculoskeletal: Reports back pain Integumentary Denies rash Neurologic Neurologic: Denies headache(s) or weakness Allergic/Immunologic Allergic/Immunologic ED: Denies urticaria EXAM Physical Exam Const Vital Signs: 06/05/21 19:23 06/05/21 19:26 Temperature 96.5 F L Temperature Source Temporal Pulse Rate 87 Respiratory Rate 20 H Blood Pressure 120/69 Blood Pressure Mean 86 Pulse Ox 98 100 Oxygen Delivery Method Room Air Nasal Cannula Oxygen Flow Rate (L/min) 2 Positive well nourished and well developed General Appearance ED: well developed HEENT Reports normocephalic and head/scalp atraumatic Eyes PERRL and EOMs intact bilaterally Neck supple Chest Wall inspection of chest normal and palpation of chest normal Resp normal respiratory effort Auscultation: diminished lung sounds Cardio regular rate and regular rhythm GI normal to inspection, nondistended, normoactive bowel sounds and non-tender Palpation: soft Back/Spine no CVA tenderness Extremity Extremity Narrative: Left upper extremity fistula Neuro oriented x3 and no sensory deficits noted Sensorium / Orientation: alert Motor Exam: strength 5/5 throughout Psych mental status grossly normal Skin Skin Narrative: Multiple ecchymoses noted to his arms from recent blood draws/hospitalization. MDM MDM MDM Narrative Medical decision making narrative: Patient was given a tab of oxycodone here. Chest x-ray obtained. Treatment and Re-Evaluation Comments:: Chest x-ray per my interpretation reveals improvement in the right lower lobe infiltrate. He continues to have small pleural effusion noted on the left. Test results discussed with the patient. When I initially asked him about the prescription he had filled earlier this month for Percocet he told me he did not have any Percocet. He then states that Dr. Carlos did write him Percocet but told him he could take 3 a day instead of 2, therefore he is out of his medication. I advised her that I would write him for 10 tabs only. He is to call Dr. Gomez tomorrow for any further prescriptions. Discharge Plan Triage Chief Complaint: Back ED Provider: Sary Lawrence Dx/Rx/DC Orders Clinical Impression: Back pain Instructions: ED Back Pain (Acute or Chronic) Prescriptions: New oxycodone 5 mg tablet 5 mg PO Q8H PRN (Reason: pain) 3 Days Qty: 10 RF: 0 No Action albuterol sulfate 2 mg/5 mL syrup 2 mg PO TID RF: 0 sertraline [Zoloft] 100 mg tablet 100 mg PO DAILY RF: 0 Hold Instructions: Resume on 06/09/21. Hold due to QT prolongation with Levaquin. Resume on June 09, 2021. tamsulosin 0.4 MG capsule 0.4 mg PO DAILY Qty: 30 RF: 1 aspirin 81 mg tablet,delayed release (DR/EC) 81 mg PO DAILY Qty: 30 RF: 1 clopidogrel 75 mg tablet 75 mg PO DAILY Qty: 30 RF: 0 diltiazem HCl 180 mg capsule,extended release 24hr 180 mg PO DAILY Qty: 30 RF: 0 amiodarone 200 mg tablet 200 mg PO BID Qty: 60 RF: 0 sevelamer HCl [Renagel] 800 mg tablet 800 mg PO TID RF: 0 buspirone 5 mg Tablet 5 mg PO BID RF: 0 fluticasone propion-salmeterol [Wixela Inhub] 250-50 mcg/dose Blister With Device 1 inh INHALATION BID RF: 0 lovastatin 20 mg Tablet 40 mg PO QPM RF: 0 loratadine 10 mg tablet 10 mg PO QODAY RF: 0 Spiriva with HandiHaler 18 mcg capsule, w/inhalation device 18 mcg INHALATION DAILY RF: 0 metoprolol succinate 25 mg tablet extended release 24 hr 12.5 mg PO BID RF: 0 levofloxacin 500 mg tablet 500 mg PO DAILY Qty: 1 RF: 0 Primary Care Provider: Doron Recio Referrals: Radha Carlos MD [STAFF PHYSICIAN] - As soon as possible Doron Recio MD [Primary Care Provider] - Disposition Disposition: Home, Self Care
[2021-06-05 23:20] VITALS: O2SAT 95
== END 2021-06-05 23:57 | disposition home or self-care (01) ==
PROVIDERS: Emergency Provider Emergency Medicine; PCP Family Medicine
DX: M54.9 Dorsalgia, unspecified (principal); G89.29 Other chronic pain; I25.10 Atherosclerotic heart disease of native coronary artery without angina pectoris; J44.9 Chronic obstructive pulmonary disease, unspecified; E78.5 Hyperlipidemia, unspecified; I12.0 Hypertensive chronic kidney disease with stage 5 chronic kidney disease or end stage renal disease; N18.6 End stage renal disease; F17.210 Nicotine dependence, cigarettes, uncomplicated; Z99.2 Dependence on renal dialysis; Z79.52 Long term (current) use of systemic steroids; Z79.899 Other long term (current) drug therapy
CPT/HCPCS: 71045; 99284

== ENCOUNTER 2021-06-08 09:32 | Emergency (ER) | payer MEDICARE, MEDICAID, SELFPAY ==
[2021-06-08 09:33] VITALS: BP 106/65; PULSE 118; RESP 14; TEMP 36.8; O2SAT 100; BMI 28.9
--- NOTE | 2021-06-08 10:06 | EDS_ITS ---
HPI History of Present Illness Chief Complaint: Back Informant: patient Onset/Context/Timing Onset: - (chronic) Narrative Narrative: Patient has chronic low back pain, he is in independent living at [facility], states there is nothing new or different today but presenting because his [employer] ran out 1 week ago, he is in pain management with Dr. Carlos and has been unable to reach him regarding this, they did not call him back today and he states he is tired of being in pain since he is out of his medications everything is worse in his low back, and he is here for that reason alone. He denies any recent illness or injury, he states his pain is only worse because he has been out of his pain medication. He is here on the day after and states that with the holiday no one has been available. He states that the pain does go down his left leg at times, that is not new and it is chronic. He has had no bowel or bladder dysfunction or saddle anesthesias. No abdominal pain. Appetite has been less and p.o. intake has been less because of his pain. He states he does occasionally get injections from pain management, of the last one did not help. He was told by his pain management doctor that his health is too poor for surgery and he will be on pain medication to manage his pain for the rest of his life. Prior similar symptoms: Yes and With Prior Back Pain [facility] Medical History Adrenal adenoma Alcohol addiction Alcoholic cardiomyopathy Anemia due to chronic illness Atherosclerotic heart disease of [place] coronary artery without angina pectoris Atrial fibrillation and flutter Atrial fibrillation with rapid ventricular response (04/2019) Back pain Benign essential HTN Benign hypertension BPH (benign prostatic hyperplasia) Cardiomyopathy in diseases classified elsewhere Chronic obstructive pulmonary disease Chronic renal failure, stage 4 (severe) Chronic serous otitis media of left ear COPD (chronic obstructive pulmonary disease) Current drinker of alcohol Diverticulosis End-stage renal disease on hemodialysis ESRD (end stage renal disease) on dialysis Hiatal hernia HLD (hyperlipidemia) Hyperlipidemia Nicotine dependence Paroxysmal atrial fibrillation Persistent atrial fibrillation PKD (polycystic kidney disease) Problem with dialysis access Home Medications albuterol sulfate 2 mg/5 mL oral syrup 2 mg PO TID 12/15/19 [History Last Taken 05/31/21] sertraline [Zoloft] 100 mg PO DAILY 03/08/21 [History Last Taken 05/31/21] aspirin 81 mg PO DAILY #30 tab 03/11/21 [Rx Last Taken 05/31/21] tamsulosin 0.4 mg PO DAILY #30 cap 03/11/21 [Rx Last Taken 05/31/21] amiodarone 200 mg PO BID #60 tab 03/17/21 [Rx Last Taken 05/31/21] clopidogrel 75 mg PO DAILY #30 tab 03/17/21 [Rx Last Taken 05/31/21] diltiazem HCl 180 mg PO DAILY #30 cap 03/17/21 [Rx Last Taken 05/31/21] sevelamer HCl [Renagel] 800 mg PO TID 03/26/21 [History Last Taken 05/31/21] Spiriva with HandiHaler 18 mcg INHALATION DAILY 05/31/21 [History Last Taken 05/31/21] buspirone 5 mg PO BID 05/31/21 [History Last Taken 05/31/21] fluticasone propion-salmeterol [Wixela Inhub] 1 inh INHALATION BID 05/31/21 [History Last Taken 05/31/21] loratadine 10 mg PO QODAY 05/31/21 [History Last Taken 05/30/21] lovastatin 40 mg PO QPM 05/31/21 [History Last Taken 05/25/21] metoprolol succinate 12.5 mg PO BID 05/31/21 [History Last Taken 05/31/21] levofloxacin 500 mg PO DAILY #1 tab 06/05/21 [Rx Last Taken Unknown] oxycodone 5 mg PO Q8H PRN 3 Days #10 tab 06/05/21 [Rx Last Taken Unknown] hydrocodone-acetaminophen 1 tab PO Q6H PRN PRN 3 Days #10 tablet 06/08/21 [Rx Last Taken Unknown] Allergy/AdvReac Type Severity Reaction Status Date / Time Penicillins Allergy Unknown Verified 05/31/21 13:11 Family History Mother Cancer brain Father Cancer throat Surgical History History of angioplasty of peripheral vessel (07/2019) History of coronary artery stent placement Surgically constructed arteriovenous fistula Social History household members: none housing: apartment Smoking Status: Current every day smoker tobacco type: cigarettes alcohol intake: current Alcohol type: beer details: Notes 2-3 beers, QOD substance use type: does not use ROS ROS ED Constitutional Constitutional ED: Denies chills or fever(s) Gastrointestinal Gastrointestinal: Denies abdominal pain, constipation, fecal incontinence, nausea or vomiting Genitourinary Genitourinary ED: Reports other Details: no urinary retention ; Denies abdominal discomfort or urinary incontinence Musculoskeletal Musculoskeletal: Reports as per HPI and back pain; Denies neck pain Integumentary Denies rash or wounds Neurologic Neurologic: Denies headache(s), paresthesias or weakness EXAM Physical Exam Const Vital Signs: 06/08/21 09:33 Temperature 98.3 F Temperature Source Temporal Pulse Rate 118 H Respiratory Rate 14 Blood Pressure 106/65 Blood Pressure Mean 78 Pulse Ox 100 Oxygen Delivery Method Room Air Positive well nourished and well developed General Appearance ED: well developed and NAD HEENT Negative for trauma or tenderness Eyes PERRL and EOMs intact bilaterally Neck full ROM and supple GI normal to inspection, nondistended, normoactive bowel sounds, soft to palpation and non-tender Back/Spine normal to inspection Lumbar Spine / Lower Back: ROM limited and straight leg raise negative bilaterally Extremity normal to inspection and full ROM General Extremity: edema bilateral lower extremity Details: mild Neuro oriented x3 and no sensory deficits noted Sensorium / Orientation: alert Motor Exam: strength 5/5 throughout and clonus absent Deep Tendon Reflexes: Rt Patellar (L4): 2+, Lt Patellar (L4): 2+, Rt Ankle (S1): 2+ and Lt Ankle (S1): 2+ Deep Tendon Reflexes Back: Rt Patellar (L4): 2+, Lt Patellar (L4): 2+, Rt Ankle (S1): 2+ and Lt Ankle (S1): 2+ Plantar Reflex: Downgoing: bilateral Psych mental status grossly normal and thought process normal Skin no rashes or lesions noted and no wounds MDM MDM MDM Narrative Medical decision making narrative: We attempted to get a hold of the patient's pain management doctor but we had no response. Patient had a prescription for days ago for 3 days of medication. I will give him another 3-day supply to hopefully get him through the weekend. Discharge Plan Triage Chief Complaint: Back ED Provider: John Hernandez Dx/Rx/DC Orders Clinical Impression: Chronic low back pain Instructions: ED Back Pain (Acute or Chronic) Prescriptions: New hydrocodone-acetaminophen [hydrocodone-acetaminophen] 1 TABLET tablet 1 tab PO Q6H PRN PRN (Reason: Pain) 3 Days Qty: 10 RF: 0 No Action albuterol sulfate 2 mg/5 mL syrup 2 mg PO TID RF: 0 sertraline [Zoloft] 100 mg tablet 100 mg PO DAILY RF: 0 Hold Instructions: Resume on 06/09/21. Hold due to QT prolongation with Levaquin. Resume on June 09, 2021. tamsulosin 0.4 MG capsule 0.4 mg PO DAILY Qty: 30 RF: 1 aspirin 81 mg tablet,delayed release (DR/EC) 81 mg PO DAILY Qty: 30 RF: 1 clopidogrel 75 mg tablet 75 mg PO DAILY Qty: 30 RF: 0 diltiazem HCl 180 mg capsule,extended release 24hr 180 mg PO DAILY Qty: 30 RF: 0 amiodarone 200 mg tablet 200 mg PO BID Qty: 60 RF: 0 sevelamer HCl [Renagel] 800 mg tablet 800 mg PO TID RF: 0 buspirone 5 mg Tablet 5 mg PO BID RF: 0 fluticasone propion-salmeterol [Wixela Inhub] 250-50 mcg/dose Blister With Device 1 inh INHALATION BID RF: 0 lovastatin 20 mg Tablet 40 mg PO QPM RF: 0 loratadine 10 mg tablet 10 mg PO QODAY RF: 0 Spiriva with HandiHaler 18 mcg capsule, w/inhalation device 18 mcg INHALATION DAILY RF: 0 metoprolol succinate 25 mg tablet extended release 24 hr 12.5 mg PO BID RF: 0 levofloxacin 500 mg tablet 500 mg PO DAILY Qty: 1 RF: 0 oxycodone 5 mg tablet 5 mg PO Q8H PRN (Reason: pain) 3 Days Qty: 10 RF: 0 Primary Care Provider: Doron Recio Referrals: Radha Carlos MD [STAFF PHYSICIAN] - As soon as possible Doron Recio MD [Primary Care Provider] - Disposition Disposition: Home, Self Care
[2021-06-08] MEDS: HYDROcodone Bitartrate/Apap 5/325 Tablet PO (10:36)
[2021-06-08 10:37] VITALS: BP 105/59; PULSE 76; RESP 20; O2SAT 96
== END 2021-06-08 10:39 | disposition home or self-care (01) ==
PROVIDERS: Emergency Provider Emergency Medicine; PCP Family Medicine
DX: G89.29 Other chronic pain (principal); M54.50 Low back pain, unspecified; I25.10 Atherosclerotic heart disease of native coronary artery without angina pectoris; J44.9 Chronic obstructive pulmonary disease, unspecified; E78.5 Hyperlipidemia, unspecified; I48.0 Paroxysmal atrial fibrillation; I12.0 Hypertensive chronic kidney disease with stage 5 chronic kidney disease or end stage renal disease; N18.6 End stage renal disease; F17.210 Nicotine dependence, cigarettes, uncomplicated; Z99.2 Dependence on renal dialysis; Z79.51 Long term (current) use of inhaled steroids; Z79.899 Other long term (current) drug therapy
CPT/HCPCS: 99284

== ENCOUNTER 2021-06-11 10:30 | Inpatient (IN) | payer MEDICARE, MEDICAID, SELFPAY ==
[2021-06-11] VITALS (18 sets, daily range): BP systolic 126–170; BP diastolic 59–93; PULSE 64–95; RESP 18–34; TEMP 36.3–37.1; O2SAT 91–99; BMI 28.5; BMI 27.1
--- NOTE | 2021-06-11 10:52 | RAD_ITS ---
HISTORY: sob. TECHNIQUE: XR Chest 1 View. EXAM TIME: 2021-06-11 11:06. # of images incl. paperwork: 1. COMPARISON:06/05/2021. FINDINGS: LINES/DEVICES: None. CARDIOMEDIASTINAL BORDERS: Leftward mediastinal shift from left volume loss. LUNGS: Near complete opacification of the left lung with residual aeration in the left upper to midlung. PLEURA: Increased large left pleural effusion. RAD/Chest 1 View (Portable) IMPRESSION: Increased large left pleural effusion with increased collapse or consolidation of the left lung. at 1228 Reported and signed by: Seema Dumont MD Electronically Signed: Seema Dumont MD at 12:26 EST Tel , Service support ,
--- NOTE | 2021-06-11 10:52 | EKG12_ITS ---
Test Reason : SOB Blood Pressure : / mmHG Vent. Rate : 092 BPM Atrial Rate : 062 BPM P-R Int : 000 ms QRS Dur : 106 ms QT Int : 396 ms P-R-T Axes : 000 057 180 degrees QTc Int : 489 ms Atrial fibrillation Nonspecific ST and T wave abnormality Abnormal ECG Confirmed by MARIA DOLORES CERVANTES, ALEJA ([id number]), editor continuity and script SEAN WEBB ([id number]) on 06/12/2021 8:32:14 AM Referred By: ALLISON Confirmed By:ALEJA WHITTEN MD
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
[2021-06-11] MEDS: Albuterol 2.5 MG/3 ML VIAL.NEB. INHALATION ×4 (11:16→15:19)
[2021-06-11] MEDS: MethylPREDNISolone 125 MG/2 ML Vial IV (11:16)
[2021-06-11] MEDS: Ipratropium/Albuterol Sulfate 3 ML AMPUL.NEB INHALATION ×3 (11:16→23:41)
[2021-06-11 11:35] LABS: Absolute Lymphocyte Count 0.47 X10^3/uL (0.83-4.51); Basophil# 0.01 X10^3/uL; Basophil% 0.1 % (0-1); Eosinophil# 0.02 X10^3/uL; Eosinophils% 0.2 % (0-5); Hematocrit 33.9 % (40-54); Hemoglobin 10.8 g/dL (13.0-16.5); Lymphocyte # 0.47 X10^3/ul (0.83-4.51); Lymphocyte % 4.4 % (19-41); Mean Corp Hgb Conc 31.9 g/dL (32-36); Mean Corpuscular Hgb 31.2 pg (27.0-32.0); Mean Platelet Vol. 10.8 fl (6.2-12.0); Monocyte# 1.18 X10^3/uL; NRBC Flagged by Analyzer 0 % (0-5); Neutrophil % 83.7 % (47-70); POSITIVE DIFFERENTIAL YES; POSITIVE MORPHOLOGY YES; Platelet Count 199 K/mm3 (150-450); RBC Distribution Width CV 20.5 % (11.6-14.6); RBC Distribution Width SD 73.9 fl (35.1-43.9); Red Blood Count 3.46 M/mm3 (4.6-6.2); White Blood Count 10.7 K/mm3 (4.4-11.0)
[2021-06-11 11:37] LABS: Differential Indicated SCAN CRITERIA MET
[2021-06-11 11:42] LABS: Anion Gap 17 (5-15); BUN 41 mg/dL (7-18); BUN/Creat Ratio 7.5 RATIO (10-20); Calcium,Total 9.2 mg/dL (8.5-10.1); Chloride 84 mmol/L (98-107); Creatinine, Serum 5.46 mg/dL (0.70-1.30); EST Glomerular Filtration Rate 11 mL/min (>60); Est Glom Filt Rate - Afr Amer 14 mL/min (>60); Glucose 83 mg/dL (74-106); Potassium 5.1 mmol/L (3.5-5.1); Sodium Level 125 mmol/L (136-145)
[2021-06-11 12:33] LABS: Anisocytosis 1+
[2021-06-11 13:00] LABS: International Normalized Ratio 1.1; Prothrombin Time (Protime)PT. 13.1 SECONDS (11.7-14.9)
[2021-06-11 13:01] LABS: Partial Thromboplast Time 34.2 Seconds (24.1-36.2)
--- NOTE | 2021-06-11 13:37 | US_ITS ---
STUDY: SUPERFICIAL ULTRASOUND - LEFT PLEURAL SPACE. REASON FOR EXAM: Male, 65 years old. LT PLEURAL EFFUSION -- ER 2 TECHNIQUE: A superficial ultrasound was performed with real-time and static obrien-scale imaging. COMPARISON: None. FINDINGS: Imaging of the left pleural cavity was performed. No significant effusion is seen for safe thoracentesis. There is evidence of an infiltration and/or atelectasis at the left lung base. US/Chest IMPRESSION: No significant effusion is seen for safe thoracentesis. The sonographic findings suggest left basilar atelectasis and/or infiltration. Postobstructive pneumonitis should be ruled out. Electronically Signed: Ronald Johnson MD at 14:19 EST , Service support ,
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
[2021-06-11 17:16] LABS: AST(SGOT) 38 U/L (15-37); Alanine Aminotransfer ALT/SGPT 39 U/L (16-61); Albumin, Serum 2.8 g/dL (3.2-5.0); Alkaline Phosphatase 112 U/L (45-117); Bilirubin, Direct 0.14 mg/dL (0.00-0.30); Globulin 4.4 g/dL (2.2-4.2); Protein, Total 7.2 g/dL (6.4-8.2)
[2021-06-11] MEDS: Furosemide 40 MG/4 ML Vial IV ×2 (17:36→18:20)
[2021-06-11] MEDS: 0.9% Saline Lock 10 ML Syringe IV (17:37)
[2021-06-11 18:05] LABS: Allen Test Positive; Base Excess 0 mmol/L (-2 to +2); Bicarbonate 24.9 mmol/L (22-26); Blood Gas Specimen Type ART; FI02 44; O2 Delivery Device Cannula; PO2 69 mmHG (75-100); SITE R Radial; SO2 93 % (95-99); Total Carbon Dioxide 26 mmol/L; pCO2 43.2 mmHg (35-45); pH 7.37 (7.35-7.45)
[2021-06-11] MEDS: Amiodarone 200 MG Tablet PO (18:55)
[2021-06-11] MEDS: HYDROcodone Bitartrate/Apap 5/325 Tablet PO (18:55)
--- NOTE | 2021-06-11 21:16 | CPS ---
Patient continues to refuse to use BiPAP
[2021-06-11] MEDS: Metoprolol(XL)Succ 25 MG Tablet 12.5 MG PO (21:32)
[2021-06-11] MEDS: Atorvastatin Calcium 20 MG Tablet PO (21:33)
[2021-06-11] MEDS: busPIRone 5 MG Tablet PO (21:33)
[2021-06-11] MEDS: SEVELAMER CARBONATE 800 MG TABLET PO (21:33)
--- NOTE | 2021-06-11 22:52 | PCS.PANDOC ---
PANDEMIC DOCUMENTATION INITIATED: Date: 02/26/2021 Time: 190 Emergency documentation initiated 06/11/21 @ 1900
[2021-06-12] VITALS (19 sets, daily range): BP systolic 105–152; BP diastolic 57–109; PULSE 67–95; RESP 18–32; TEMP 35.5–36.5; O2SAT 90–99
[2021-06-12] MEDS: HYDROcodone Bitartrate/Apap 5/325 Tablet PO ×2 (01:08→21:12)
[2021-06-12] MEDS: Ipratropium/Albuterol Sulfate 3 ML AMPUL.NEB INHALATION ×5 (03:03→23:22)
[2021-06-12] MEDS: Morphine 2 MG/ML Syringe IV (04:12)
--- NOTE | 2021-06-12 05:55 | RAD_ITS ---
HISTORY: left infiltrate. TECHNIQUE: XR Chest 2 Views. EXAM TIME: 2021-06-12 08:04. # of images incl. paperwork: 2. COMPARISON:06/11/2021. FINDINGS: LINES/DEVICES: None. CARDIOMEDIASTINAL BORDERS: Stable leftward mediastinal shift from left sided volume loss. LUNGS/PLEURA: Mild blunting of the right costophrenic angle again seen. Near complete opacification of the left hemithorax with collapse and consolidation of the lung with pleural effusion not excluded. RAD/Chest PA and Lateral IMPRESSION: No significant interval change in near complete opacification of the left hemithorax. at 0852 Reported and signed by: Seema Dumont MD Electronically Signed: Seema Dumont MD at 8:51 EST Tel , Service support ,
[2021-06-12] MEDS: 0.9% Saline Lock 10 ML Syringe IV (06:08)
[2021-06-12] MEDS: SEVELAMER CARBONATE 800 MG TABLET PO ×2 (06:09→21:08)
--- NOTE | 2021-06-12 06:35 | NURSING ---
Pt will labored breathing and tachypnea. Several times an hour pt is removing oxygen and pulse ox monitor. Replaced pulse ox sensor 3X in 1 hour and pt continuous to remove. Asked pt if he would try bipap and pt stated absolutely not. Attempted to educate but pt continuous to refuse everything except nc.
--- NOTE | 2021-06-12 07:00 | NURSING ---
Dr. Pandey in to see pt. OK to remove vines at this time.
[2021-06-12 07:16] LABS: Absolute Lymphocyte Count 0.11 X10^3/uL (0.83-4.51); Basophil# 0.01 X10^3/uL; Basophil% 0.1 % (0-1); Hematocrit 33.7 % (40-54); Hemoglobin 10.4 g/dL (13.0-16.5); Lymphocyte # 0.11 X10^3/ul (0.83-4.51); Lymphocyte % 0.9 % (19-41); Mean Corp Hgb Conc 30.9 g/dL (32-36); Mean Corpuscular Hgb 31.1 pg (27.0-32.0); Mean Corpuscular Volume 100.9 fL (80-94); Mean Platelet Vol. 11.2 fl (6.2-12.0); Monocyte# 0.68 X10^3/uL; Monocyte% 5.7 % (0-10); NRBC Flagged by Analyzer 0 % (0-5); Neutrophil # 10.97 X10^3/uL (2.7-7.7); Neutrophil % 92.5 % (47-70); POSITIVE DIFFERENTIAL YES; POSITIVE MORPHOLOGY YES; Platelet Count 179 K/mm3 (150-450); RBC Distribution Width CV 20.5 % (11.6-14.6); RBC Distribution Width SD 76.1 fl (35.1-43.9); Red Blood Count 3.34 M/mm3 (4.6-6.2); White Blood Count 11.9 K/mm3 (4.4-11.0)
[2021-06-12 07:18] LABS: Differential Indicated SCAN CRITERIA MET
[2021-06-12 07:44] LABS: Anion Gap 17 (5-15); BUN 55 mg/dL (7-18); BUN/Creat Ratio 8.7 RATIO (10-20); Calcium,Total 9.2 mg/dL (8.5-10.1); Chloride 86 mmol/L (98-107); Creatinine, Serum 6.35 mg/dL (0.70-1.30); EST Glomerular Filtration Rate 10 mL/min (>60); Est Glom Filt Rate - Afr Amer 12 mL/min (>60); Estimated Creatinine Clearance 11.52 ml/min; Glucose 171 mg/dL (74-106); Potassium 5.7 mmol/L (3.5-5.1); Sodium Level 126 mmol/L (136-145)
[2021-06-12 07:48] LABS: Anisocytosis 2+
[2021-06-12] MEDS: Clopidogrel Bisulfate 75 MG Tablet PO (10:11)
[2021-06-12] MEDS: Metoprolol(XL)Succ 25 MG Tablet 12.5 MG PO ×2 (10:11→21:07)
[2021-06-12] MEDS: Tamsulosin HCl 0.4 MG Capsule PO (10:11)
[2021-06-12] MEDS: Sertraline 100 MG Tablet PO (10:11)
[2021-06-12] MEDS: busPIRone 5 MG Tablet PO ×2 (10:11→21:08)
[2021-06-12] MEDS: Aspirin E.C. 81 MG Tablet PO (10:12)
[2021-06-12] MEDS: dilTIAZem CD 180 MG Capsule PO (10:12)
[2021-06-12] MEDS: Amiodarone 200 MG Tablet PO ×2 (10:12→21:25)
--- NOTE | 2021-06-12 10:14 | CT_ITS ---
HISTORY: left infiltrate. TECHNIQUE: Helically acquired images were obtained of the chest without contrast. A radiation dose optimization technique was used for this scan. # of images incl. paperwork: 891. COMPARISON: XR same day, CT 12/22/2019. FINDINGS: Motion artifact lowers the sensitivity of examination LARGE AIRWAYS: Opacification of the left bronchus distally extending into the lobar branches. LUNGS: Severe opacification of the left upper and lower lobes with volume loss and mild residual aeration. Mild right apical emphysema. Very mild right middle and lower lobe atelectasis. PLEURA: Left pleural thickening with trace pleural fluid and pleural calcifications. HEART AND PERICARDIUM: Borderline cardiomegaly with coronary artery disease. No pericardial effusion. VESSELS: Thoracic aorta nondilated. MEDIASTINUM AND RYLEY: Leftward mediastinal shift. No pathologically enlarged lymphadenopathy. UPPER ABDOMEN: Numerous cysts and complex lesions enlarging the bilateral kidneys. Numerous small liver cysts. 2.7 cm left adrenal nodule. SOFT TISSUES: Chest wall edema. BONES: Chronic bilateral rib and thoracic compression fractures. Degenerative change. Osteopenia. Lumbar vertebroplasty. CT/Chest without Contrast IMPRESSION: Severe collapse of the left upper and left lower lobes secondary to obstruction of the left bronchus distally extending into the lobar airways, which may be secondary to mucous plugging. Centrally obstructing mass not excluded. Recommend bronchoscopy or follow-up. Chronic left pleural thickening with calcification. Autosomal dominant polycystic renal disease. Individualized dose optimization techniques were used for this CT. at 1212 Reported and signed by: Seema Dumont MD Electronically Signed: Seema Dumont MD at 12:11 EST Tel , Service support ,
--- NOTE | 2021-06-12 10:29 | CASEMGMT ---
Addendum entered by Becky Chavez 06/12/21 10:34: Pt had two ER visits since prior hospitalization, 06/05 and 06/08. Both visits were for back pain. Original Note: TEZ JANSEN Readmission Note Previous Admission: 05/31/21-06/05/21 Diagnosis: multifocal PNA DC Disposition: Home to [facility] at [facility] Current Admission Presentation: shortness of breath Pt presented to ER from home with increased shortness of breath. Pt had been dc'd on oral antibiotics from last admission. Pt chronically on 5L O2 at home and has dialysis M/W/F. This admission pt went down for thoracentesis but cancelled d/t not enough fluid. Pt respiratory status declined and pt was placed on bipap but was unable to tolerate. Pulm to c/s. TEZ JANSEN to follow. DC PLAN:TBD pending course of treatment.
--- NOTE | 2021-06-12 11:38 | CASEMGMT ---
Social Work Note MJ reviewed chart. Pt is listed as being from [facility]. SW in to speak with pt. SW introduced self and role at [facility]. Pt confirms he came from [facility] and plan is to return. SW faxed updated clinicals to [facility]. Pt also has a [facility] ([phone]) through [facility]. SW placed a call to [facility] and left message updating her on pt's admission to [facility]. Plan: Return to [facility] when medically cleared Breanna Mcfadden [employer], [employer]
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
[2021-06-12] MEDS: Atorvastatin Calcium 20 MG Tablet PO (21:08)
[2021-06-13] MEDS: Ipratropium/Albuterol Sulfate 3 ML AMPUL.NEB INHALATION ×3 (02:44→10:12)
[2021-06-13 02:45] VITALS: PULSE 81; RESP 24
[2021-06-13 03:07] VITALS: BP 125/72; PULSE 87; RESP 18; TEMP 36.3; O2SAT 97
[2021-06-13] MEDS: Senna/Docusate Sodium 1 Tablet 2 TABLET PO ×2 (03:10→10:21)
[2021-06-13] MEDS: Gabapentin 100 MG Capsule PO ×2 (03:10→10:21)
[2021-06-13] MEDS: SEVELAMER CARBONATE 800 MG TABLET PO (05:11)
[2021-06-13] MEDS: 0.9% Saline Lock 10 ML Syringe IV (05:12)
[2021-06-13] MEDS: HYDROcodone Bitartrate/Apap 5/325 Tablet PO ×2 (05:17→10:47)
[2021-06-13 05:55] LABS: Absolute Lymphocyte Count 0.12 X10^3/uL (0.83-4.51); Basophil# 0.01 X10^3/uL; Basophil% 0.1 % (0-1); Hematocrit 34.4 % (40-54); Hemoglobin 10.5 g/dL (13.0-16.5); Lymphocyte # 0.12 X10^3/ul (0.83-4.51); Lymphocyte % 1.6 % (19-41); Mean Corp Hgb Conc 30.5 g/dL (32-36); Mean Corpuscular Hgb 31.6 pg (27.0-32.0); Mean Corpuscular Volume 103.6 fL (80-94); Mean Platelet Vol. 10.1 fl (6.2-12.0); Monocyte# 0.53 X10^3/uL; Monocyte% 6.8 % (0-10); NRBC Flagged by Analyzer 0.3 % (0-5); Neutrophil # 7.04 X10^3/uL (2.7-7.7); POSITIVE DIFFERENTIAL YES; POSITIVE MORPHOLOGY YES; Platelet Count 126 K/mm3 (150-450); RBC Distribution Width CV 20.3 % (11.6-14.6); RBC Distribution Width SD 76.2 fl (35.1-43.9); Red Blood Count 3.32 M/mm3 (4.6-6.2); White Blood Count 7.7 K/mm3 (4.4-11.0)
[2021-06-13 06:06] LABS: Differential Indicated SCAN CRITERIA MET
[2021-06-13 06:09] LABS: Anion Gap 12 (5-15); BUN 26 mg/dL (7-18); BUN/Creat Ratio 7.2 RATIO (10-20); Calcium,Total 8.7 mg/dL (8.5-10.1); Chloride 93 mmol/L (98-107); Creatinine, Serum 3.62 mg/dL (0.70-1.30); EST Glomerular Filtration Rate 18 mL/min (>60); Est Glom Filt Rate - Afr Amer 22 mL/min (>60); Estimated Creatinine Clearance 20.21 ml/min; Glucose 104 mg/dL (74-106); Potassium 4.4 mmol/L (3.5-5.1); Sodium Level 133 mmol/L (136-145)
[2021-06-13 06:27] LABS: Anisocytosis 2+; Differential Comment SCANNED; Macrocytosis 2+; Polychromasia RARE
[2021-06-13 07:11] VITALS: PULSE 80; RESP 22; O2SAT 93
[2021-06-13 08:40] VITALS: BP 111/86; PULSE 76; RESP 20; TEMP 36.4; O2SAT 97
[2021-06-13 10:14] VITALS: PULSE 67; RESP 22
[2021-06-13 10:20] VITALS: PULSE 67
[2021-06-13] MEDS: Metoprolol(XL)Succ 25 MG Tablet 12.5 MG PO (10:20)
[2021-06-13] MEDS: dilTIAZem CD 180 MG Capsule PO (10:21)
[2021-06-13] MEDS: Amiodarone 200 MG Tablet PO (10:21)
[2021-06-13] MEDS: Sertraline 100 MG Tablet PO (10:21)
[2021-06-13] MEDS: busPIRone 5 MG Tablet PO (10:21)
[2021-06-13] MEDS: Aspirin E.C. 81 MG Tablet PO (10:21)
[2021-06-13] MEDS: Tamsulosin HCl 0.4 MG Capsule PO (10:21)
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
--- NOTE | 2021-06-13 13:00 | NURSING ---
SPO2 alarming in room. This nurse entered and pt had . fusing machine operator called to room to confirm.
--- NOTE | 2021-06-13 13:05 | NURSING ---
Dr. Rudolph notified and calling patients sister.
--- NOTE | 2021-06-13 14:53 | CASEMGMT ---
Social Work Note Pt has . SW placed a call to pt's CM Renee Galindo at [facility] and left message that pt has . MJ placed a call to [facility] and spoke with TEZ Cast and updated her that pt has . 

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
--- NOTE | 2021-06-13 17:13 | NURSING ---
sister Shania Tmo - [phone] cell phone number
== END 2021-06-13 14:45 | DRG 205 ==
LOC: ED 12:22 → MS3 15:45
PROVIDERS: Physician Assistant; Admitting Provider Internal Medicine; Emergency Provider Emergency Medicine; PCP Family Medicine; Visit Provider Internal Medicine
DX: J98.19 Other pulmonary collapse (principal); J96.21 Acute and chronic respiratory failure with hypoxia; J18.1 Lobar pneumonia, unspecified organism; N18.6 End stage renal disease; J90 Pleural effusion, not elsewhere classified; J44.1 Chronic obstructive pulmonary disease with (acute) exacerbation; J44.0 Chronic obstructive pulmonary disease with (acute) lower respiratory infection; I12.0 Hypertensive chronic kidney disease with stage 5 chronic kidney disease or end stage renal disease; I48.19 Other persistent atrial fibrillation; E87.1 Hypo-osmolality and hyponatremia; I25.10 Atherosclerotic heart disease of native coronary artery without angina pectoris; E78.5 Hyperlipidemia, unspecified; F41.9 Anxiety disorder, unspecified; D63.1 Anemia in chronic kidney disease; Z66 Do not resuscitate; E87.5 Hyperkalemia; F17.210 Nicotine dependence, cigarettes, uncomplicated; Z99.81 Dependence on supplemental oxygen; Z79.51 Long term (current) use of inhaled steroids; Z99.2 Dependence on renal dialysis; Z79.899 Other long term (current) drug therapy; Z91.19 Patient's noncompliance with other medical treatment and regimen; Z79.02 Long term (current) use of antithrombotics/antiplatelets
CPT/HCPCS: 36415; 36600; 71045; 71046; 71250; 76604; 80048; 80076; 82803; 85025; 85610; 85730; 87426; 90937; 93005; 94640; 94667; 94668; 94762; 99251; 99284; 99285; 99406; J2185; A4216; G0257; G0463; J1940